=== PATIENT | female | born 1960 | race Caucasian/White ===

== ENCOUNTER → 2016-11-29 | Outpatient (CLI) | payer OTHER ==
[~2016-11-29] MED LIST: ACETAMINOPHEN PO; ADVIN25/60 INH; ALBUAER19 INH; ALPR-411 PO; ATV/1 PO; CALC500T83 PO; CHOL1TAB2 PO; CO Q PO; CYAN10005 PO; FSM70 PO; FURO-85 PO; OXGN; POTASSIUM OTC PO; PRAV20TA PO; SILDINJ PO; [UNRECOGNIZED DRUG - CODE] INH
== END | disposition home or self-care (01) ==
LOC: C.LAB 08:47
PROVIDERS: ATTEND Family Medicine
DX: Z11.59 Encounter for screening for other viral diseases (principal)

== ENCOUNTER → 2017-01-06 | Outpatient (CLI) | payer OTHER ==
[2017-01-06 10:26] LABS: PATIENT HEIGHT 162.6 cm
[2017-01-06 13:12] LABS: CREATININE 0.64 mg/dl (0.6-1.2)
== END | disposition home or self-care (01) ==
LOC: C.LAB 10:10
PROVIDERS: ATTEND Internal Medicine Pulmonary Disease
DX: Z01.818 Encounter for other preprocedural examination (principal); I27.0 Primary pulmonary hypertension

== ENCOUNTER → 2017-01-30 | Outpatient (CLI) | payer OTHER | END | disposition home or self-care (01) | LOC: C.MAMM 09:23 | PROVIDERS: ATTEND Family Medicine | DX: M85.89 Other specified disorders of bone density and structure, multiple sites (principal); M81.0 Age-related osteoporosis without current pathological fracture ==

== ENCOUNTER → 2017-03-20 | Outpatient (CLI) | payer OTHER | END | disposition home or self-care (01) | LOC: C.PATHSPEC 16:52 | PROVIDERS: ATTEND Dermatology | DX: L82.0 Inflamed seborrheic keratosis (principal) ==

== ENCOUNTER → 2017-03-21 | Outpatient (CLI) | payer OTHER ==
--- NOTE | 2017-03-21 15:20 | MAMMOGRAPHY REPORT ---
BILATERAL DIGITAL SCREENING MAMMOGRAM TOMOSYNTHESIS WITH CAD: 03/21/2017 CLINICAL HISTORY: Routine screening. Patient has no complaints. TECHNIQUE: Breast tomosynthesis in addition to standard 2D mammography was performed. Current study was also evaluated with a Computer Aided Detection (CAD) system. COMPARISON: Comparison is made to exams dated: 03/17/2016 mammogram, 03/13/2015 mammogram, 03/03/2014 mammogram, 03/01/2013 mammogram, 02/23/2012 mammogram, and 02/21/2011 mammogram - [facility]. BREAST COMPOSITION: There are scattered areas of fibroglandular density in both breasts. FINDINGS: The parenchymal pattern is similar to prior mammograms. There are scattered and grouped s table microcalcifications bilaterally. No developing mass, architectural distortion or cluster of sen spicious microcalcifications is seen in either breast. IMPRESSION: ACR BI-RADS CATEGORY 2: BENIGN There is no mammographic evidence of malignancy. A 1 year screening mammogram is recommended. The pa tient will receive written notification of the results. Approximately 10% of breast cancers are not detected with mammography. A negative mammographic report should not delay biopsy if a clinically suggestive mass is present. Valeria Hurt M.D. ay/:03/21/2017 14:39:44 Recruiting Coordinator: Denise Price, [facility] letter sent: Normal 1/2 BI-RADS Code: ACR BI-RADS Category 2: Benign
== END | disposition home or self-care (01) ==
LOC: C.MAMM 08:19
PROVIDERS: ATTEND Internal Medicine Pulmonary Disease
DX: Z12.31 Encounter for screening mammogram for malignant neoplasm of breast (principal)

== ENCOUNTER → 2017-04-10 | Outpatient (CLI) | payer OTHER | END | disposition home or self-care (01) | LOC: C.PAPS 09:50 | PROVIDERS: ATTEND Obstetrics & Gynecology | DX: Z12.4 Encounter for screening for malignant neoplasm of cervix (principal); R87.610 Atypical squamous cells of undetermined significance on cytologic smear of cervix (ASC-US) ==

== ENCOUNTER → 2017-04-17 | Outpatient (CLI) | payer OTHER | END | disposition home or self-care (01) | LOC: C.LAB1850 09:53 | PROVIDERS: ATTEND Obstetrics & Gynecology | DX: Z01.419 Encounter for gynecological examination (general) (routine) without abnormal findings (principal) ==

== ENCOUNTER 2020-01-24 09:33 | Observation (INO) ==
--- NOTE | 2020-01-24 10:05 | Emergency Department Note ---
Impression & Plan Hypoglycemia, Anemia ED Provider Note NAME: ANTWON TAI AGE: 59 SEX: F : 1960 ARRIVES VIA: Walk-In INFORMANT: Patient, ED PROVIDER(S): Jason Palumbo MD Chief Complaint: Low blood sugar HPI: Patient does present with concern for low blood sugar. 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 The patient was noted to be hypoglycemic last night with a BSG of 31. The patient did receive glucose tabs and this improved. The patient was seen by [facility] this morning with a BSG of 47. The patient was referred here for further evaluation and treatment. The patient does relate that she recently started a medication glimepiride 4 mg likely taken once daily. The patient has last taken this 2 days prior. Patient denies any other changes in her medications other than stopping the insulin use and after switching to the glimepiride. Patient denies fevers chills, chest pains. The patient does have some loose stools but the patient is on Reglan. ROS: See HPI for pertinent positives and negatives. A total of 10 systems were reviewed and otherwise negative. Past medical history: See below Surgical history: See below Social history: See below Physical Exam: GENERAL: NAD, non-toxic. Wearing glasses and a mask, nasal cannula in place. Hard of hearing. EYE EXAM: Right normal, left-sided subconjunctival hemorrhage noted. PERRL, no anisocoria and EOM's grossly intact w/o pain. NECK: Supple, no nuchal rigidity, no adenopathy, non-tender. No signs of meningismus. LUNGS: Clear to auscultation. Normal chest wall mechanics. HEART: NSR, no MRG. ABDOMEN: Abdomen soft, non-tender, normo-active bowel sounds, no masses, no rebound or guarding. BACK: No CVA TTP. SKIN: No rashes and no bruising. UPPER EXTREMITIES: Upper extremities are grossly normal. LOWER EXTREMITIES: Grossly normal, no edema. NEURO EXAM: A&O x3, cranial nerves II-XII grossly intact, normal speech, moves all 4 extremities on command w/o issue. Differential diagnoses: Infection, dehydration, metabolic abnormality, hypo/hyperglycemia, electrolyte disturbance, anemia, hypoxia, cardiac sources, intracerebral event, toxicologic, neurologic, as well as other pathologies. Course: Patient was seen and evaluated the bedside. Full history physical exam was performed. MDM: Patient was seen and evaluated the bedside. The patient was recently started on 4 mg of glimepiride likely daily although after discussion with the pharmacist the pharmacist stated that she was unable to view the actual instructions for the medications but typically this is able once daily medication. The patient has not taken this in approximate 48 hours. I did offer the patient a prescription of 1 mg glimepiride but the patient states that she was told to stop taking it at all times. The patient is well-appearing with a normal BSG. BSG was rechecked prior to discharge. This was in the 30s. The patient was given apple juice. Blood work was obtained and the patient was given IV dextrose and encouraged to drink more juice as well as eat crackers and peanut butter. Patient's repeat BSG was in the 80s. Given this rapid fluctuation even after eating for amounts of believe the patient would benefit from further inpatient monitoring treatment medication management given her persistent hypoglycemia. I did speak with the on-call hospitalist and the patient was admitted by Dr. Cormier with the [facility] service. Critical Care: I have personally spent 77 minutes of critical care time in direct management of this patient. This includes bedside care, interpretation of diagnostic studies, and testing, discussion with consultants, patient, and family members, and other require inpatient management activities. This 77 minutes is in excess of all separately billable procedures. Past Med/Surg History Medical History ASCUS of cervix with negative high risk HPV Cholesteatoma of both middle ears Chronic mastoiditis Chronic obstructive pulmonary disease Chronic respiratory failure with hypoxia and hypercapnia Chronic tympanomastoiditis Encounter for mastoidectomy cavity debridement History of actinic keratosis Hypercholesterolemia LGSIL on Pap smear of cervix Osteoporosis Postmenopausal Pulmonary emphysema Pulmonary hypertension Surgical History History of colposcopy History of ear surgery Hx of colonoscopy Hx of tonsillectomy S/P cardiac cath S/P dilation and curettage S/P wisdom tooth extraction Family History Mother Adenocarcinoma of lung Osteoporosis Rheumatoid arthritis Lung cancer Myocardial infarction Aunt Breast cancer maternal aunt Grandfather (Paternal) Colorectal cancer Father Lung cancer Denies family history of Ovarian cancer Social History Smoking Status: Former smoker Cigarettes Per Day: 1 ppd for 23 years; Hx Alcohol Use: No Hx Substance Use: No Feels Safe at Home: Yes Allergies Allergies Allergy/AdvReac Type Severity Reaction Status Date / Time Sulfa (Sulfonamide Allergy Mild Verified 05/27/19 12:23 Antibiotics) Home Meds Home Medications Medication Instructions Recorded Confirmed Oxygen Home #1 ea 02/05/19 04/30/19 atorvastatin 40 mg tablet 40 mg PO DAILY 04/24/19 01/24/20 zoledronic acid 5 mg/100 mL in 1 ea IV YEARLY 04/24/19 01/24/20 mannitol 5 %-water intravenous piggybck albuterol sulfate 2.5 mg INH MOWEFR PRN 01/24/20 01/24/20 amphotericin B liposome [AmBisome] 25 mg MOWEFR 01/24/20 01/24/20 aspirin [Aspir-81] 81 mg PO DAILY 01/24/20 01/24/20 azithromycin 250 mg PO MOWEFR 01/24/20 01/24/20 calcium carbonate-vitamin D3 2 tab PO DAILY 01/24/20 01/24/20 [Calcium + D] ferrous sulfate 325 mg PO BID 01/24/20 01/24/20 furosemide 40 mg PO DAILY 01/24/20 01/24/20 glimepiride 4 mg PO DAILY 01/24/20 01/24/20 magnesium oxide 250 mg PO DAILY 01/24/20 01/24/20 metoclopramide HCl 10 mg PO TID 01/24/20 01/24/20 metoprolol tartrate 50 mg PO BID 01/24/20 01/24/20 mycophenolate sodium [Myfortic] 900 mg PO BID 01/24/20 01/24/20 ondansetron 4 mg PO TID 01/24/20 01/24/20 pantoprazole 40 mg PO DAILY 01/24/20 01/24/20 potassium chloride 20 meq PO DAILY 01/24/20 01/24/20 prednisone 20 mg PO DAILY 01/24/20 01/24/20 sennosides-docusate sodium 2 tab-cap PO BID 01/24/20 01/24/20 [Senna-S] sulfamethoxazole-trimethoprim 1 tab PO MOWEFR 01/24/20 01/24/20 tacrolimus 0.5 mg PO BID 01/24/20 01/24/20 tacrolimus 1 mg PO Q12H 01/24/20 01/24/20 trazodone 50 mg PO DAILY 01/24/20 01/24/20 Previous Rx's Medication Instructions Recorded Flutter Valve #1 ea 05/14/19 CPAP Machine #1 ea 11/22/19 Results & Data (ED) Vital Signs Vital Signs - 24 hr 01/24/20 09:39 01/24/20 11:11 01/24/20 12:00 Temperature 37 C Temperature Source Oral Pulse Rate 88 102 H Pulse Rate from SpO2 Sensor 90 Pulse Rhythm Regular Pulse Strength Normal Respiratory Rate 18 22 Respiratory Effort / Characteristics Non-Labored Spontaneous Respiratory Depth Normal Respiratory Pattern Regular Blood Pressure 118/66 122/73 Blood Pressure Mean 83 97 Pulse Oximetry 98 100 99 Oxygen Delivery Method Room Air Room Air Nasal Cannula Oxygen Flow Rate 1 Sepsis Recent Fever Within 48 Hours No Sepsis New/Unexplained Change in Mental Status N/A Sepsis Action Taken by Nursing No Action Required Home Medications Current Medication List: was personally reviewed by me Laboratory Data Attestation: I reviewed the patient's lab results. Result diagrams: 01/24/20 10:58 01/24/20 10:58 Lab Results 01/24/20 01/24/20 01/24/20 Range/Units 09:38 10:33 10:58 WBC 6.56 (4.8-10.8) K/uL RBC 2.67 L (4.2-5.4) M/uL Hgb 8.1 L (12.0-16.0) g/dL Hct 25.6 L (37-47) % MCV 95.9 (80-100) fL MCH 30.3 (25-34) pg MCHC 31.6 L (32-36) g/dL RDW Std Deviation 65.6 H (36.4-46.3) fL RDW Coeff of Janina 18.7 H (11.5-14.5) % Plt Count 316 (130-400) K/uL MPV 8.6 (7.4-10.4) fL Immature Gran % (Auto) 4.9 % Neut % (Auto) 84.9 % Lymph % (Auto) 5.6 % [place] % (Auto) 4.6 % Eos % (Auto) 0.0 % Baso % (Auto) 0.0 % Neut # (Auto) 5.57 (1.4-6.5) K/uL Lymph # (Auto) 0.37 L (1.2-3.4) K/uL [place] # (Auto) 0.30 (0.11-0.59) K/uL Eos # (Auto) 0.00 (0-0.5) K/uL Baso # (Auto) 0.00 (0-0.2) K/uL Immature Gran # (Auto) 0.32 H (0.00-0.02) K/uL Sodium (136-145) mmol/L Potassium (3.5-5.1) mmol/L Chloride (98-107) mmol/L Carbon Dioxide (21-32) mmol/L Anion Gap (3-11) BUN (7-18) mg/dl Creatinine (0.6-1.2) mg/dl Est Cr Clr Drug Dosing ml/min Est GFR ( Amer) Est GFR (Non-Af Amer) BUN/Creatinine Ratio (10-20) Glucose (70-99) mg/dl POC Glucose 93 39 L* (70-99) mg/dl Calcium (8.5-10.1) mg/dl Phosphorus (2.5-4.9) mg/dl Magnesium (1.8-2.4) mg/dl Total Bilirubin (0.2-1) mg/dl AST (15-37) U/L ALT (12-78) U/L Alkaline Phosphatase (45-117) U/L Total Protein (6.4-8.2) gm/dl Albumin (3.4-5.0) gm/dl Globulin (2.5-4.0) gm/dl Albumin/Globulin Ratio (0.9-2) TSH (0.300-4.500) uIu/ml 01/24/20 01/24/20 01/24/20 Range/Units 10:58 11:28 12:16 WBC (4.8-10.8) K/uL RBC (4.2-5.4) M/uL Hgb (12.0-16.0) g/dL Hct (37-47) % MCV (80-100) fL MCH (25-34) pg MCHC (32-36) g/dL RDW Std Deviation (36.4-46.3) fL RDW Coeff of Janina (11.5-14.5) % Plt Count (130-400) K/uL MPV (7.4-10.4) fL Immature Gran % (Auto) % Neut % (Auto) % Lymph % (Auto) % [place] % (Auto) % Eos % (Auto) % Baso % (Auto) % Neut # (Auto) (1.4-6.5) K/uL Lymph # (Auto) (1.2-3.4) K/uL [place] # (Auto) (0.11-0.59) K/uL Eos # (Auto) (0-0.5) K/uL Baso # (Auto) (0-0.2) K/uL Immature Gran # (Auto) (0.00-0.02) K/uL Sodium 136 (136-145) mmol/L Potassium 3.5 (3.5-5.1) mmol/L Chloride 99 (98-107) mmol/L Carbon Dioxide 29 (21-32) mmol/L Anion Gap 8.0 (3-11) BUN 27 H (7-18) mg/dl Creatinine 1.30 H (0.6-1.2) mg/dl Est Cr Clr Drug Dosing 39.2 ml/min Est GFR ( Amer) 51.3 Est GFR (Non-Af Amer) 44.2 BUN/Creatinine Ratio 20.8 H (10-20) Glucose 26 L* (70-99) mg/dl POC Glucose 122 H 81 (70-99) mg/dl Calcium 8.6 (8.5-10.1) mg/dl Phosphorus 2.5 (2.5-4.9) mg/dl Magnesium 1.1 L (1.8-2.4) mg/dl Total Bilirubin 0.2 (0.2-1) mg/dl AST 16 (15-37) U/L ALT 17 (12-78) U/L Alkaline Phosphatase 61 (45-117) U/L Total Protein 5.7 L (6.4-8.2) gm/dl Albumin 2.4 L (3.4-5.0) gm/dl Globulin 3.3 (2.5-4.0) gm/dl Albumin/Globulin Ratio 0.7 L (0.9-2) TSH 1.620 (0.300-4.500) uIu/ml Administered Medications Discontinued Medications Dextrose (Dextrose 50% 50 Ml Syringe) 50 ml IV NOW ONE Stop: 01/24/20 10:44 Last Admin: 01/24/20 11:08 Dose: 50 ml Documented by: [id number] Sodium Chloride (Nss) 500 mls @ 999 mls/hr IV .Q31M FRANCIE Stop: 01/24/20 11:15 Last Infusion: 01/24/20 11:52 Dose: 0 mls/hr Documented by: [id number] Admin: 01/24/20 11:07 Dose: 999 mls/hr Documented by: [id number] Sodium Chloride (Nss 1000ml) 500 mls @ 999 mls/hr IV .Q31M ONE Stop: 01/24/20 11:41 Last Infusion: 01/24/20 11:52 Dose: 0 mls/hr Documented by: [id number] Admin: 01/24/20 11:17 Dose: 999 mls/hr Documented by: [id number] Discharge Plan Visit Data Chief Complaint: Hypoglycemia Stated Complaint: LOW BLOOD SUGAR ED Provider: Jason Palumbo Discharge Problem: Hypoglycemia, Anemia Forms Stand Alone Forms: [facility] Prescriptions Prescriptions: No Action (DME) CPAP Machine Misc See Rx Instructions .ROUTE .MEDSUPPLY Qty: 1 RF: 0 (DME) Oxygen Home Liters Per Minute See Dose Instructions .ROUTE .MEDSUPPLY Qty: 1 RF: 0 atorvastatin 40 mg tablet 40 mg PO DAILY RF: 0 zoledronic ocvp-rzghiopd-ndhii [Reclast] 5 mg/100 mL piggyback 1 ea IV YEARLY RF: 0 (DME) Flutter Valve Device See Rx Instructions .ROUTE .MEDSUPPLY Qty: 1 RF: 0 trazodone 50 mg tablet 50 mg PO DAILY RF: 0 potassium chloride 20 mEq tablet,ER particles/crystals 20 meq PO DAILY RF: 0 metoclopramide HCl 5 mg tablet 10 mg PO TID RF: 0 pantoprazole 40 mg tablet,delayed release (DR/EC) 40 mg PO DAILY RF: 0 metoprolol tartrate 50 mg tablet 50 mg PO BID RF: 0 furosemide 40 mg tablet 40 mg PO DAILY RF: 0 prednisone 10 mg tablet 20 mg PO DAILY RF: 0 azithromycin 250 mg tablet 250 mg PO MOWEFR RF: 0 sennosides-docusate sodium [Senna-S] 8.6-50 mg Tablet 2 tab-cap PO BID RF: 0 calcium carbonate-vitamin D3 [Calcium + D] 600 mg(1,500mg) -200 unit Tablet 2 tab PO DAILY RF: 0 sulfamethoxazole-trimethoprim 800-160 mg tablet 1 tab PO MOWEFR RF: 0 aspirin [Aspir-81] 81 mg Tablet,Delayed Release (Dr/Ec) 81 mg PO DAILY RF: 0 ferrous sulfate 325 mg (65 mg iron) Tablet 325 mg PO BID RF: 0 glimepiride 4 mg tablet 4 mg PO DAILY RF: 0 AmBisome 50 mg suspension for reconstitution 25 mg MOWEFR RF: 0 ondansetron 4 mg tablet,disintegrating 4 mg PO TID RF: 0 tacrolimus 1 mg Capsule 1 mg PO Q12H RF: 0 tacrolimus 0.5 mg Capsule 0.5 mg PO BID RF: 0 magnesium oxide 250 mg magnesium Tablet 250 mg PO DAILY RF: 0 mycophenolate sodium [Myfortic] 180 mg Tablet,Delayed Release (Dr/Ec) 900 mg PO BID RF: 0 albuterol sulfate 2.5 mg /3 mL (0.083 %) solution for nebulization 2.5 mg INH MOWEFR PRN (Reason: shortness of breath or wheezing) RF: 0 tobramycin sulfate 40 mg/mL solution 120 mg inhalation BID RF: 0 Discharge Problem: Anemia Qualifiers: Anemia type: unspecified type Qualified Code(s): D64.9 - Anemia, unspecified
[2020-01-24] MEDS ORDERED: DEXTROSE 50% 50 ML SYRINGE IV ONE (10:43)
[2020-01-24] MEDS ORDERED: SODIUM CHLORIDE 0.9% 500 ML IV SCH (10:45)
[2020-01-24 11:06] LABS: Hematocrit (blood only) 25.6 % (37-47); Hemoglobin 8.1 g/dL (12.0-16.0); Immature Granulocytes # (auto) 0.32 K/uL (0.00-0.02); Immature Granulocytes % (auto) 4.9 %; Lymphocytes # (auto) 0.37 K/uL (1.2-3.4); Lymphocytes % (auto) 5.6 %; Mean Corpuscular Hemoglobin 30.3 pg (25-34); Mean Corpuscular Hgb Conc 31.6 g/dL (32-36); Mean Corpuscular Volume 95.9 fL (80-100); Mean Platelet Volume 8.6 fL (7.4-10.4); Monocytes % (auto) 4.6 %; Neutrophils # (auto) 5.57 K/uL (1.4-6.5); Neutrophils % (auto) 84.9 %; Platelet Count 316 K/uL (130-400); RDW Coefficient of Variation 18.7 % (11.5-14.5); RDW Standard Deviation 65.6 fL (36.4-46.3); Red Blood Count 2.67 M/uL (4.2-5.4); White Blood Count 6.56 K/uL (4.8-10.8)
[2020-01-24] MEDS ORDERED: SODIUM CHLORIDE 0.9% 1000ML 500 ML IV ONE (11:11)
[2020-01-24 11:37] LABS: Albumin Globulin Ratio 0.7 (0.9-2); Albumin Level 2.4 gm/dl (3.4-5.0); BUN Creatinine Ratio 20.8 (10-20); Bilirubin,Total 0.2 mg/dl (0.2-1); Calcium 8.6 mg/dl (8.5-10.1); Creatinine Clr Calc Pharmacy 39.2 ml/min; Est GFR (African American) 51.3; Est GFR (Non-African American) 44.2; Globulin 3.3 gm/dl (2.5-4.0); Magnesium 1.1 mg/dl (1.8-2.4); Phosphorus 2.5 mg/dl (2.5-4.9); Potassium 3.5 mmol/L (3.5-5.1); Thyroid Stimulating Hormone 1.62 uIu/ml (0.300-4.500); Total Protein 5.7 gm/dl (6.4-8.2)
[2020-01-24] MEDS ORDERED: MAGNESIUM SULFATE / D5W 1 GM/100 ML BAG IV STA (13:18)
--- NOTE | 2020-01-24 13:57 | History & Physical Report ---
Date of Service January 24, 2020 Assessment & Plan (1) Hypoglycemia: -Admit to [facility] with telemetry -Patient presenting from home with reports of hypoglycemia in the 30s to 40s. Was discharged from rehab on 01/12 with Humulin and and NovoLog. On 01/21, patient was instructed to stop Humulin and start glimepiride 4 mg daily and utilize NovoLog as needed 3 times a day per sliding scale. -In the ED, glucose as low as 26. This improved after IV D50 and meal tray. -Suspect hypoglycemia is multifactorial secondary to patient's poor p.o. intake and mild renal dysfunction with the use of glimepiride. -Continue to hold all hypoglycemic agents and insulin -Monitor glucose hourly (2) Hypomagnesemia: -MG +1.1 -Likely due to diarrhea and poor p.o. intake -Replace, follow magnesium levels (3) Diarrhea: -Patient reports worsening diarrhea since starting Reglan -Hold Reglan -Check stool culture and C. difficile (4) Lung transplant status, bilateral: -Continue routine transplant medications including: Nebulized amphotericin, tacrolimus, azithromycin, Myfortic, Bactrim, valganciclovir, nebulized tobramycin, prednisone -Tacrolimus level on 01/19 28.5 -Discussed with [facility] home school coordinator, Danelle. They are aware of most recent tacrolimus level and renal functions and patient was instructed to reduce dose to 6 mg twice daily. -Patient will need repeat tacrolimus and BMP level on 01/26 (5) Abnormal renal function: -Recent creatinine 1.16 -> 1.48 -> 1.3 today -severity of illness coordinator aware -Continue to monitor renal functions (6) Paroxysmal A-fib: -Developed postoperative atrial fibrillation -Was anticoagulated for a brief period of time -Rate controlled on metoprolol, will continue (7) Anemia: -Hgb 8.1 -Likely anemia of chronic disease -No signs of bleeding -Monitor CBC (8) DVT prophylaxis: -SCDs due to anemia History of Present Illness Chief Complaint: Hypoglycemia Primary Care Provider: Jeferson Vinson MD 59-year-old female with PMH double lung transplant ([facility] 11/11/2019), HLD, paroxysmal atrial fibrillation, and other problems listed below who presents the ED for evaluation of hypoglycemia. Patient was discharged from rehab on 01/13/2020 after hospitalization for double lung transplant. Patient reports she was placed on Humulin and and NovoLog insulin while at rehab due to steroid-induced hyperglycemia. Patient reports that on 01/22/2020, she was instructed to stop Humulin insulin and start glimepiride 4 mg daily. She was instructed to use NovoLog per sliding scale as needed. Patient reports she took her first dose of glimepiride on 01/22/2020, and that evening she developed severe hypoglycemia with blood sugars in the 30s to 40s. She has had several episodes of hypoglycemia over the past few days. reports that patient becomes very lethargic and diaphoretic during episodes of hypoglycemia. She has been drinking apple juice and eating candy to help improve blood sugar. This morning, home health nursing came to evaluate the patient and she was again hypoglycemic. She was sent to the ED for further evaluation. Patient reports that since her surgery, she has had a very poor appetite. She was also struggling with nausea and was placed on Reglan. Patient reports that since starting Reglan, she has had diarrhea. She denies bright red bleeding per rectum or dark tarry stools. No abdominal pain. She has had some intermittent episodes of vomiting. No hematemesis or coffee-ground emesis. She denies fevers and chills. No chest pain, shortness of breath, palpitations. She is currently on 1 L of oxygen at all times. She denies lightheadedness, dizziness, syncopal events. No urinary symptoms. In the ED, blood sugar was 93 however dropped to 26. She was given D50. Most recent blood sugar 73. Allergies Allergy/AdvReac Type Severity Reaction Status Date / Time No Known Allergies Allergy Verified 01/24/20 16:23 Home Medications Home Medications Medication Instructions Recorded Confirmed Type Oxygen Home #1 ea 02/05/19 04/30/19 History atorvastatin 40 mg tablet 40 mg PO DAILY 04/24/19 01/24/20 History Flutter Valve #1 ea 05/14/19 05/14/19 Rx CPAP Machine #1 ea 11/22/19 Rx albuterol sulfate 2.5 mg INH MOWEFR 01/24/20 01/24/20 History amphotericin B 25 mg INHALATION MOWEFR 01/24/20 01/24/20 History azithromycin 250 mg PO MOWEFR 01/24/20 01/24/20 History ferrous sulfate 325 mg PO BID 01/24/20 01/24/20 History furosemide 40 mg PO DAILY 01/24/20 01/24/20 History glimepiride 4 mg PO DAILY 01/24/20 01/24/20 History magnesium oxide 250 mg PO DAILY 01/24/20 01/24/20 History metoclopramide HCl 10 mg PO TID 01/24/20 01/24/20 History metoprolol tartrate 50 mg PO BID 01/24/20 01/24/20 History mycophenolate sodium [Myfortic] 900 mg PO BID 01/24/20 01/24/20 History ondansetron 4 mg PO TID 01/24/20 01/24/20 History pantoprazole 40 mg PO DAILY 01/24/20 01/24/20 History potassium chloride 20 meq PO DAILY 01/24/20 01/24/20 History prednisone 20 mg PO DAILY 01/24/20 01/24/20 History sulfamethoxazole-trimethoprim 1 tab PO MOWEFR 01/24/20 01/24/20 History tacrolimus 1 mg PO Q12H 01/24/20 01/24/20 History tacrolimus 5 mg PO Q12H 01/24/20 01/24/20 History tobramycin sulfate 120 mg INHALATION BID 01/24/20 01/24/20 History trazodone 50 mg PO DAILY 01/24/20 01/24/20 History valganciclovir 1,800 mg PO DAILY 01/24/20 01/24/20 History Past Med/Surg History Medical History ASCUS of cervix with negative high risk HPV Cholesteatoma of both middle ears Chronic mastoiditis Chronic obstructive pulmonary disease Chronic respiratory failure with hypoxia and hypercapnia Chronic tympanomastoiditis Encounter for mastoidectomy cavity debridement History of actinic keratosis Hypercholesterolemia LGSIL on Pap smear of cervix Osteoporosis Paroxysmal A-fib Postmenopausal Pulmonary emphysema Pulmonary hypertension Surgical History History of colposcopy History of ear surgery Hx of colonoscopy Hx of tonsillectomy Lung transplant status, bilateral 11/11/2019 [facility] S/P cardiac cath S/P dilation and curettage S/P wisdom tooth extraction Family History Mother Adenocarcinoma of lung Osteoporosis Rheumatoid arthritis Lung cancer Myocardial infarction Aunt Breast cancer maternal aunt Grandfather (Paternal) Colorectal cancer Father Lung cancer Denies family history of Ovarian cancer Social History Smoking Status: Never smoker Cigarettes Per Day: 1 ppd for 23 years; Hx Alcohol Use: No Hx Substance Use: No Preferred Language: Burmese Communication Ability: Effective Fur Mixer Required: No Beliefs That Will Affect Care: None Current Living Situation: Spouse Other Information That Helps Us Care for You: No Feels Safe at Home: Yes Safety Concerns: Feels Safe At This Time Review of Systems Review of Systems: ROS per HPI, all other systems reviewed and negative Physical Exam Constitutional: WD/WN, vitals as above Eyes: + anicteric sclerae and PERRL subconjunctival hemorrhage noted in left eye ENMT: external ear and nose normal, oropharynx normal Respiratory: normal respiratory effort; no respiratory distress Scattered coarse breath sounds noted bilaterally Cardiovascular: Rate/Rhythm: regular rate and regular rhythm Vessels: normal peripheral pulses Extremities: + edema (+2 pitting ankle edema BLE) Gastrointestinal (Abdomen): normal bowel sounds, soft, nontender, no hepatosplenomegaly Musculoskeletal: no cyanosis or clubbing, extremities motor strength 5/5 Skin: no rashes, warm and dry Neurologic: PERRL, EOMI, accommodation nl, no face palsy, no dysarthria Psychiatric: A+Ox3, euthymic affect Results & Data Results & Data ([facility]) Vital Signs (Past 12 Hours) Vital Signs Temp Pulse Resp BP Pulse Ox 01/24/20 13:00 96 H 26 H 113/61 100 01/24/20 12:30 104 H 23 111/68 100 01/24/20 12:00 102 H 22 122/73 99 01/24/20 11:11 100 01/24/20 09:39 37 C 88 18 118/66 98 Laboratory Results Short CBC 01/24/20 01/24/20 01/24/20 Range/Units 09:38 10:33 10:58 WBC 6.56 (4.8-10.8) K/uL Hgb 8.1 L (12.0-16.0) g/dL Hct 25.6 L (37-47) % Plt Count 316 (130-400) K/uL POC Glucose 93 39 L* (70-99) mg/dl 01/24/20 01/24/20 01/24/20 Range/Units 11:28 12:16 13:20 WBC (4.8-10.8) K/uL Hgb (12.0-16.0) g/dL Hct (37-47) % Plt Count (130-400) K/uL POC Glucose 122 H 81 61 L* (70-99) mg/dl 01/24/20 Range/Units 13:21 WBC (4.8-10.8) K/uL Hgb (12.0-16.0) g/dL Hct (37-47) % Plt Count (130-400) K/uL POC Glucose 73 (70-99) mg/dl BMP 01/24/20 10:58 Sodium 136 Potassium 3.5 Chloride 99 Carbon Dioxide 29 BUN 27 H Creatinine 1.30 H Glucose 26 L* Calcium 8.6 Liver Function 01/24/20 Range/Units 10:58 Total Bilirubin 0.2 (0.2-1) mg/dl AST 16 (15-37) U/L ALT 17 (12-78) U/L Alkaline Phosphatase 61 (45-117) U/L Albumin 2.4 L (3.4-5.0) gm/dl Code Status & VTE Plan VTE Prophylaxis Plan VTE Prophylaxis will be ordered: Yes Supervising Physician Co-Signing Physician Notes Patient seen and examined by me, care coordinated with RICHARD Davis, please refer to her note above for further detail. Pt is a 59 y/o female with hx of double lung transplant ([facility] 11/11/2019), HLD, paroxysmal atrial fibrillation, who presents in the ED for evaluation of hypoglycemia. Patient was discharged from rehab on 01/13/2020 after hospitalization for double lung transplant. Patient reports she was placed on Humulin and and NovoLog insulin while at rehab due to steroid-induced hyperglycemia. Patient reports that on 01/22/2020, she was instructed to stop Humulin insulin and start glimepiride 4 mg daily. She was instructed to use NovoLog per sliding scale as needed. Last night she was found to be hypoglycemic with blood sugar level of 31, home health check this morning, blood sugar level of 47. In ED she received dextrose and normal saline. Patient states the glyburide was prescribed by her retail store clerk in [place]. She reports having diarrhea since her lung transplant. Possibly secondary to Reglan use. Currently patient is sitting up in bed, in no acute distress. Patient's at the bedside. Patient is alert and oriented and answering questions appropriately. Subconjunctival hemorrhage noted in the left eye. Otherwise normocephalic. Lung sounds are mildly coarse, no wheezing noted. She also has some ankle edema. Per patient and , her lower extremity edema is significantly improved, patient was reportedly quite edematous after her surgery and this has been progressively resolving. She is able to move all 4 extremities spontaneously. Abdomen is soft, nontender, nondistended, positive bowel sounds. Skin is warm, dry, no rashes or lesions noted. We will hold glimepiride, and will closely monitor her glucose levels. Will hold Reglan, and will obtain stool culture, C. difficile. Magnesium significantly low, will replete and monitor. A. fib, rate controlled. [facility] lung home school coordinator notified about the patient's admission also current medication list requested. Siomara Cormier MD (1) Anemia Anemia type: unspecified type Qualified Code(s): D64.9 - Anemia, unspecified
[2020-01-24] MEDS ORDERED: [UNRECOGNIZED DRUG - OTHER] IR SCH (14:50)
[2020-01-24] MEDS ORDERED: ACETAMINOPHEN 325 MG TAB PO PRN (14:50)
[2020-01-24] MEDS ORDERED: CONSULT PHARMACY PRN (14:50)
[2020-01-24] MEDS ORDERED: PATIENT'S ALLERGY INFO NEEDS ENTERED SCH (15:00)
--- NOTE | 2020-01-24 15:06 | Electrocardiogram Report ---
Test Reason : Blood Pressure : / mmHG Vent. Rate : 129 BPM Atrial Rate : 129 BPM P-R Int : 132 ms QRS Dur : 076 ms QT Int : 312 ms P-R-T Axes : 038 060 048 degrees QTc Int : 457 ms Poor data quality, interpretation may be adversely affected Sinus tachycardia with Premature atrial complexes Possible Left atrial enlargement Borderline ECG When compared with ECG of 08-JAN-2013 16:48, Premature atrial complexes are now Present Vent. rate has increased BY 53 BPM T wave amplitude has decreased in Anterior leads Confirmed by Hosea John ([id number]) on 01/24/2020 3:06:32 PM Referred By: REFERRED SELF Confirmed By:Hosea John
[2020-01-24] MEDS ORDERED: ALBUTEROL 0.083% NEBU SOLN 3 ML VIAL INH SCH (17:59)
[2020-01-24] MEDS ORDERED: AMBISOME INH SCH (18:00)
[2020-01-24] MEDS ORDERED: TOBRAMYCIN SULFATE INH SCH (21:00)
[2020-01-24] MEDS ORDERED: TOBRAMYCIN SULF 40 MG/ML 2 ML VIAL INH SCH (21:00)
[2020-01-24] MEDS: MYCOPHENOLATE SODIUM 180 MG TAB PO SCH (21:10)
[2020-01-24] MEDS: FERROUS SULFATE 325 MG TAB PO SCH (21:10)
[2020-01-24] MEDS: METOPROLOL TARTRATE 50 MG TAB PO SCH (21:11)
[2020-01-24] MEDS: TACROLIMUS 1 MG CAP PO SCH ×2 (21:11)
[2020-01-25] MEDS ORDERED: ONDANSETRON INJ 2 MG/ML 2 ML VIAL IV PRN (02:39)
[2020-01-25] MEDS ORDERED: ONDANSETRON INJ 2 MG/ML 2 ML VIAL ONE (02:46)
[2020-01-25] MEDS ORDERED: TOBRAMYCIN SULFATE INH SCH (07:00)
[2020-01-25 08:07] LABS: Hematocrit (blood only) 24.1 % (37-47); Hemoglobin 7.7 g/dL (12.0-16.0); Mean Corpuscular Hemoglobin 30.8 pg (25-34); Mean Corpuscular Volume 96.4 fL (80-100); Mean Platelet Volume 8.9 fL (7.4-10.4); Platelet Count 302 K/uL (130-400); RDW Coefficient of Variation 18.6 % (11.5-14.5); RDW Standard Deviation 65.5 fL (36.4-46.3); White Blood Count 5.61 K/uL (4.8-10.8)
[2020-01-25] MEDS: MYCOPHENOLATE SODIUM 180 MG TAB PO SCH (08:09)
[2020-01-25] MEDS: METOPROLOL TARTRATE 50 MG TAB PO SCH (08:12)
[2020-01-25] MEDS: TACROLIMUS 1 MG CAP PO SCH ×2 (08:14)
[2020-01-25] MEDS: FERROUS SULFATE 325 MG TAB PO SCH (08:16)
[2020-01-25 08:25] LABS: Calcium 8.6 mg/dl (8.5-10.1); Creatinine Clr Calc Pharmacy 42.2 ml/min; Est GFR (African American) 55.9; Est GFR (Non-African American) 48.3; Magnesium 1.4 mg/dl (1.8-2.4); Potassium 3.9 mmol/L (3.5-5.1)
[2020-01-25] MEDS ORDERED: FUROSEMIDE 40 MG TAB PO SCH (09:00)
[2020-01-25] MEDS ORDERED: MAGNESIUM OXIDE 400 MG TAB PO SCH (09:00)
[2020-01-25] MEDS ORDERED: ATORVASTATIN 40 MG TAB PO SCH (09:00)
[2020-01-25] MEDS ORDERED: PANTOprazole 40 MG TAB PO SCH (09:00)
[2020-01-25] MEDS ORDERED: predniSONE 20 MG TAB PO SCH (09:00)
[2020-01-25] MEDS ORDERED: POTASSIUM CHLORIDE 20 MEQ TABCR PO SCH (09:00)
[2020-01-25] MEDS ORDERED: TRAZODONE HCL 50 MG TAB PO SCH (09:00)
[2020-01-25] MEDS ORDERED: MAGNESIUM SULFATE / D5W 1 GM/100 ML BAG IV ONE (12:30)
--- NOTE | 2020-01-25 16:25 | Hospitalist Progress Note ---
Date of Service January 25, 2020 Assessment & Plan (1) Hypoglycemia: -Type 2 diabetes, presented with hyperglycemia -Patient presenting from home with reports of hypoglycemia in the 30s to 40s. Was discharged from rehab on 01/12 with Humulin and and NovoLog. On 01/21, patient was instructed to stop Humulin and start glimepiride 4 mg daily and utilize NovoLog as needed 3 times a day per sliding scale. -In the ED, glucose as low as 26. This improved after IV D50 and meal tray. -Suspect hypoglycemia secondary to patient's poor p.o. intake/ acute renal failure-while taking glimepiride Glimepiride discontinued Patient will be discharged on p.o. metformin XR 500 mg daily Follow-up with family physician for further adjustment of diabetic meds (2) Acute renal failure superimposed on stage 3 chronic kidney disease: Baseline creatinine 0.8- 1 as per previous labs Presents acute renal failure with creatinine 1.3 Possible secondary to poor p.o. intake, ongoing GI loss with diarrhea Patient is asked not to take Lasix But lab work on Monday, Lasix can be resumed if renal function back to baseline Avoid NSAIDs (3) Hypomagnesemia: -Ordered for IV magnesium replacement Patient has ongoing diarrhea, chronic low mag takes magnesium supplement as well No loose stool or bowel movement this morning Change patient's short acting medication oxide 200 mg daily supplement to Slow- Mag which has less GI symptoms Repeat labs on Monday, patient gets home health visiting nurse to draw labs every week (4) Diarrhea: Stool or bowel movement since this morning Mag supplement changed as above (5) Lung transplant status, bilateral: -Continue routine transplant medications including: Nebulized amphotericin, tacrolimus, azithromycin, Myfortic, Bactrim, valganciclovir, nebulized tobramycin, prednisone -Tacrolimus level on 01/19 28.5 -Care discussed with [facility] guest services coordinatorDanelle on admission they are aware of most recent tacrolimus level and renal functions and patient was instructed to reduce dose to 6 mg twice daily. -Patient will need repeat tacrolimus and BMP level on 01/26 (6) Paroxysmal A-fib: -Developed postoperative atrial fibrillation -Was anticoagulated for a brief period of time -Rate controlled on metoprolol, (7) Anemia: - -Likely anemia of chronic disease -No signs of bleeding (8) DVT prophylaxis: -SCDs due to anemia Status: Full code Patient is discharged home today Admission and Anticipated Discharge Date Admission Date: January 24, 2020 Anticipated date of discharge: 01/25/20 Subjective Patient denies of any symptoms, Feels fine, no dizzy spell or lightheadedness Tolerating diet, blood sugar has been stable Fever chills, no cough Eager to be discharged home today Review of Systems Review of Systems: All systems reviewed & are unremarkable except as noted in HPI & below Physical Exam Constitutional: WD/WN, vitals as above no acute distress Eyes: PERRL, conjunctivae normal, anicteric sclerae ENMT: external ear and nose normal, oropharynx normal Neck: trachea midline, no thyromegaly Respiratory: Auscultation: + rales and + wheezes (Scattered wheeze) Gastrointestinal (Abdomen): normal bowel sounds, soft, nontender, no hepatosplenomegaly Musculoskeletal: no cyanosis or clubbing, extremities motor strength 5/5 Skin: no rashes, warm and dry Neurologic: PERRL, EOMI, accommodation nl, no face palsy, no dysarthria Psychiatric: A+Ox3, euthymic affect Results & Data Results & Data ([facility]) Vital Signs (Past 12 Hours) Vital Signs Temp Pulse Pulse Pulse Resp BP Pulse Ox 01/25/20 15:31 36.9 C 81 17 120/70 99 01/25/20 15:17 36.9 C 75 94 H 17 129/75 96 01/25/20 12:32 36.9 C 75 17 129/75 96 01/25/20 08:20 113 H 01/25/20 07:30 36.9 C 104 H 17 105/61 93 01/25/20 07:21 84 18 94 01/25/20 04:18 36.9 C 88 18 112/70 98 (1) Anemia Anemia type: unspecified type Qualified Code(s): D64.9 - Anemia, unspecified
--- NOTE | 2020-01-25 16:26 | Discharge Summary ---
Date of Service January 25, 2020 Admission HPI Per Admitting Provider 59-year-old female with PMH double lung transplant ([facility] 11/11/2019), HLD, paroxysmal atrial fibrillation, and other problems listed below who presents the ED for evaluation of hypoglycemia. Patient was discharged from rehab on 01/13/2020 after hospitalization for double lung transplant. Patient reports she was placed on Humulin and and NovoLog insulin while at rehab due to steroid-induced hyperglycemia. Patient reports that on 01/22/2020, she was instructed to stop Humulin insulin and start glimepiride 4 mg daily. She was instructed to use NovoLog per sliding scale as needed. Patient reports she took her first dose of glimepiride on 01/22/2020, and that evening she developed severe hypoglycemia with blood sugars in the 30s to 40s. She has had several episodes of hypoglycemia over the past few days. reports that patient becomes very lethargic and diaphoretic during episodes of hypoglycemia. She has been drinking apple juice and eating candy to help improve blood sugar. This morning, home health nursing came to evaluate the patient and she was again hypoglycemic. She was sent to the ED for further evaluation. Patient reports that since her surgery, she has had a very poor appetite. She was also struggling with nausea and was placed on Reglan. Patient reports that since starting Reglan, she has had diarrhea. She denies bright red bleeding per rectum or dark tarry stools. No abdominal pain. She has had some intermittent episodes of vomiting. No hematemesis or coffee-ground emesis. She denies fevers and chills. No chest pain, shortness of breath, palpitations. She is currently on 1 L of oxygen at all times. She denies lightheadedness, dizziness, syncopal events. No urinary symptoms. In the ED, blood sugar was 93 however dropped to 26. She was given D50. Most recent blood sugar 73. Principal Diagnosis LOW BLOOD SUGAR double lung transplant Discharge Exam Constitutional WD/WN, vitals as above no acute distress Eyes PERRL, conjunctivae normal, anicteric sclerae ENMT external ear and nose normal, oropharynx normal Neck trachea midline, no thyromegaly Respiratory Auscultation: + rales and + wheezes (Scattered wheeze) Gastrointestinal (Abdomen) normal bowel sounds, soft, nontender, no hepatosplenomegaly Musculoskeletal no cyanosis or clubbing, extremities motor strength 5/5 Skin no rashes, warm and dry Neurologic PERRL, EOMI, accommodation nl, no face palsy, no dysarthria Psychiatric A+Ox3, euthymic affect Discharge Data Allergies Allergy/AdvReac Type Severity Reaction Status Date / Time glimepiride AdvReac Severe Fainting Verified 01/25/20 14:42 Consultations 01/24/20 12:29 ED Decision to Admit Stat 01/24/20 14:50 Consult Case Management - Discharge Planning Routine Hospital Course (1) Hypoglycemia: -Type 2 diabetes, presented with hyperglycemia -Patient presenting from home with reports of hypoglycemia in the 30s to 40s. Was discharged from rehab on 01/12 with Humulin and and NovoLog. On 01/21, patient was instructed to stop Humulin and start glimepiride 4 mg daily and utilize NovoLog as needed 3 times a day per sliding scale. -In the ED, glucose as low as 26. This improved after IV D50 and meal tray. -Suspect hypoglycemia secondary to patient's poor p.o. intake/ acute renal failure-while taking glimepiride Glimepiride discontinued Patient will be discharged on p.o. metformin XR 500 mg daily Follow-up with family physician for further adjustment of diabetic meds (2) Acute renal failure superimposed on stage 3 chronic kidney disease: Baseline creatinine 0.8- 1 as per previous labs Presents acute renal failure with creatinine 1.3 Possible secondary to poor p.o. intake, ongoing GI loss with diarrhea Patient is asked not to take Lasix But lab work on Monday, Lasix can be resumed if renal function back to baseline Avoid NSAIDs (3) Hypomagnesemia: -Ordered for IV magnesium replacement Patient has ongoing diarrhea, chronic low mag takes magnesium supplement as well No loose stool or bowel movement this morning Change patient's short acting medication oxide 200 mg daily supplement to Slow- Mag which has less GI symptoms Repeat labs on Monday, patient gets home health visiting nurse to draw labs every week (4) Diarrhea: Stool or bowel movement since this morning Mag supplement changed as above (5) Lung transplant status, bilateral: -Continue routine transplant medications including: Nebulized amphotericin, tacrolimus, azithromycin, Myfortic, Bactrim, valganciclovir, nebulized tobramycin, prednisone -Tacrolimus level on 01/19 28.5 -Care discussed with [facility] sales program coordinatorDanelle on admission they are aware of most recent tacrolimus level and renal functions and patient was instructed to reduce dose to 6 mg twice daily. -Patient will need repeat tacrolimus and BMP level on 01/26 (6) Paroxysmal A-fib: -Developed postoperative atrial fibrillation -Was anticoagulated for a brief period of time -Rate controlled on metoprolol, (7) Anemia: - -Likely anemia of chronic disease -No signs of bleeding (8) DVT prophylaxis: -SCDs due to anemia Status: Full code Patient is discharged home today Total Time Total Time Spent Total Time Spent (In Minutes): 35 mins Total Time Includes: Examination of the Patient, Discharge Planning and Medication Reconciliation Discharge Plan Discharge Items Patient Disposition: Home - Self-Care Reason For Visit: HYPOGLYCEMIA Discharge Diagnosis: LOW BLOOD SUGAR double lung transplant Activity: Resume your previous activity Non-emergency contact: Primary Care Provider Call non-emergency contact if: you have any medication questions Follow-up/Referrals: Jeferson Vinson MD [Primary Care Provider] - (hospital follow up in a week office will call with appointment ) Diet: Regular Addtl Attending Provider Instructions: Do not take glimepiride You are Started on Metformin 500 XR 1 tablet daily please follow up with you family physician for further adjustment of dose if needed Oral magnesium tablets does have the side effect of causing loose stool/diarrhea you Mg supplement changed to Slow Mg tablet which has less side effect Please have lab work done on Monday as per scheduled to check your magnesium level You can take [id number] Imodium as needed for loose stool/diarrhea Do not take Lasix till Monday You kidney numbers been elevated -follow up lab for kidney function on Monday you family physician /Transplant Team can resume Lasix if kidney function back to normal do not take Aleve , Advil , Motrin , Ibuprophen . Naproxen -avoid pain medications that contains NSAID's to prevent worsening of renal function please return to ER or notify your family physician with any recurrence of symptoms Pending Studies at Discharge: No Stand-Alone Forms: My Blue Box, Smoking Cessation Medications and DC Order Prescriptions: New Slow-Mag 71.5 mg tablet,delayed release (DR/EC) 71.5 mg PO DAILY Qty: 30 RF: 0 metformin 500 mg tablet extended release 24 hr 500 mg PO DAILY Qty: 30 RF: 3 Continued (DME) CPAP Machine Misc See Rx Instructions .ROUTE .MEDSUPPLY Qty: 1 RF: 0 (DME) Oxygen Home Liters Per Minute See Dose Instructions .ROUTE .MEDSUPPLY Qty: 1 RF: 0 atorvastatin 40 mg tablet 40 mg PO DAILY RF: 0 (DME) Flutter Valve Device See Rx Instructions .ROUTE .MEDSUPPLY Qty: 1 RF: 0 trazodone 50 mg tablet 50 mg PO DAILY RF: 0 potassium chloride 20 mEq tablet,ER particles/crystals 20 meq PO DAILY RF: 0 metoclopramide HCl 5 mg tablet 10 mg PO TID RF: 0 pantoprazole 40 mg tablet,delayed release (DR/EC) 40 mg PO DAILY RF: 0 metoprolol tartrate 50 mg tablet 50 mg PO BID RF: 0 prednisone 10 mg tablet 20 mg PO DAILY RF: 0 azithromycin 250 mg tablet 250 mg PO MOWEFR RF: 0 sulfamethoxazole-trimethoprim 800-160 mg tablet 1 tab PO MOWEFR RF: 0 ferrous sulfate 325 mg (65 mg iron) Tablet 325 mg PO BID RF: 0 ondansetron 4 mg tablet,disintegrating 4 mg PO TID RF: 0 mycophenolate sodium [Myfortic] 180 mg Tablet,Delayed Release (Dr/Ec) 900 mg PO BID RF: 0 albuterol sulfate 2.5 mg /3 mL (0.083 %) solution for nebulization 2.5 mg INH MOWEFR RF: 0 tobramycin sulfate 40 mg/mL solution 120 mg inhalation BID RF: 0 valganciclovir 450 mg Tablet 1,800 mg PO DAILY RF: 0 tacrolimus 5 mg Capsule 5 mg PO Q12H RF: 0 amphotericin B 50 mg Recon Soln 25 mg inhalation MOWEFR RF: 0 tacrolimus 1 mg Capsule 1 mg PO Q12H RF: 0 Discontinued furosemide 40 mg tablet 40 mg PO DAILY RF: 0 glimepiride 4 mg tablet 4 mg PO DAILY RF: 0 magnesium oxide 250 mg magnesium Tablet 250 mg PO DAILY RF: 0 Discharge Orders: Discharge Order (Routine); Ordered 01/25/20 Ordered By: Yue Arteaga Admission Data Admit Date/Time: 01/24/20 13:17 Attending Provider: Yue Arteaga Admit Provider: Mickey Cormier Primary Care Provider: Jeferson Vinson Other Providers: Mickey Cormier ; [facility],Home Healthcare Other Interventions: Discharge Summary Assessment (RN) Last Done: 01/25/20 15:17
[2020-01-27] MEDS ORDERED: ALBUTEROL 0.083% NEBU SOLN 3 ML VIAL INH SCH (06:59)
[2020-01-27] MEDS ORDERED: AMBISOME INH SCH (07:00)
[2020-01-27] MEDS ORDERED: SULFAMETHOXAZOLE/TRIMETHOPRIM DS 800/160MG TAB PO SCH (09:00)
[2020-01-27] MEDS ORDERED: AZITHROMYCIN 250 MG TAB PO SCH (09:00)
== END 2020-01-25 16:01 | disposition home or self-care (01) ==
LOC: 2N 09:33 → ED 09:33 → SUATTDRO 13:17 → 2W 14:08

== ENCOUNTER 2020-02-11 16:34 | Observation (INO) ==
[2020-02-11] MEDS ORDERED: SODIUM CHLORIDE 0.9% 250 ML IV PRN ×2 (17:11→20:51)
[2020-02-11] MEDS ORDERED: PANTOprazole 80 MG in DEXTROSE 5% 100 ML IV ONE (17:16)
[2020-02-11] MEDS ORDERED: PANTOPRAZOLE BOLUS/DRIP 1 EA IV STA (17:16)
[2020-02-11 17:44] LABS: Hematocrit (blood only) 22.5 % (37-47); Hemoglobin 7.3 g/dL (12.0-16.0)
[2020-02-11] MEDS: PANTOprazole 40 MG in DEXTROSE 5% 100 ML IV SCH (18:24)
[2020-02-11] MEDS ORDERED: METOPROLOL TARTRATE 1 MG/ML VIAL IV STA (21:49)
[2020-02-11] MEDS: MAGNESIUM SULFATE / D5W 1 GM/100 ML BAG IV SCH (21:59)
--- NOTE | 2020-02-12 00:42 | Emergency Department Note ---
History of Present Illness General Chief complaint: Abnormal Labs/Diagnostic Testing Stated complaint: hemoglobin low Source: patient, family and RN notes reviewed Mode of arrival: ambulatory Limitations: no limitations History of Present Illness Provider complaint: Anemia, post lung transplant This patient is a 59-year-old female who presents the emergency department with complaints of low blood counts after the home health nurse tomasa her blood earlier today. Patient states in December she had a bilateral lung transplant at [facility]. Patient states she received several blood transfusions during her stay over many weeks in the hospital. Patient complains of chronic nausea, difficulty eating due to the nausea, weight loss and epigastric discomfort since the surgery. She has been working with her transplant team to reduce her medications thinking this may be the cause. She had several episodes of diarrhea over the last 2 days but states it is more of a light brown/oily stool. She believes it is related to the Reglan they have prescribed. Patient states she does take Protonix daily. She did have an episode of hypoglycemia since her discharge in January required hospitalization. Currently the patient acknowledges some fatigue and shortness of breath with exertion but denies any chest pain, fevers, cough, significant abdominal discomfort, vomiting or bright red blood per rectum. Patient's notes that they checked her stool several times during her stay at [facility] and "never found any bleeding." Home Medications Home Medications Medication Instructions Recorded Confirmed Type atorvastatin 40 mg tablet 40 mg PO DIRECTED 04/24/19 02/11/20 History albuterol sulfate 2.5 mg INH DIRECTED 01/24/20 02/11/20 History amphotericin B 25 mg INHALATION DIRECTED 01/24/20 02/11/20 History azithromycin 250 mg PO DIRECTED 01/24/20 02/11/20 History ferrous sulfate 325 mg PO DIRECTED 01/24/20 02/11/20 History metoclopramide HCl 10 mg PO DIRECTED 01/24/20 02/11/20 History metoprolol tartrate 50 mg PO BID 01/24/20 02/11/20 History mycophenolate sodium [Myfortic] 900 mg PO DIRECTED 01/24/20 02/11/20 History ondansetron 4 mg PO DIRECTED 01/24/20 02/11/20 History pantoprazole 40 mg PO QAM 01/24/20 02/11/20 History potassium chloride 20 meq PO DIRECTED 01/24/20 02/11/20 History prednisone 20 mg PO QAM 01/24/20 02/11/20 History sulfamethoxazole-trimethoprim 1 tab PO 3XWK 01/24/20 02/11/20 History tacrolimus 1 mg PO Q12H 01/24/20 02/11/20 History tacrolimus 5 mg PO Q12H 01/24/20 02/11/20 History tobramycin sulfate 120 mg INHALATION DIRECTED 01/24/20 02/11/20 History trazodone 50 mg PO HS 01/24/20 02/11/20 History valganciclovir 900 mg PO QAM 01/24/20 02/11/20 History metformin 500 mg PO DAILY #30 tab 01/25/20 02/11/20 Rx aspirin [Aspirin Low Dose] 81 mg PO QAM 02/11/20 02/11/20 History furosemide 40 mg PO QAM PRN 02/11/20 02/11/20 History magnesium chloride [Slow-Mag] 71.5 mg PO DIRECTED 02/11/20 02/11/20 History melatonin 3 mg PO HS 02/11/20 02/11/20 History Allergies Allergy/AdvReac Type Severity Reaction Status Date / Time glimepiride AdvReac Severe Fainting Verified 02/11/20 17:52 Past Med/Surg History Medical History ASCUS of cervix with negative high risk HPV Cholesteatoma of both middle ears Chronic mastoiditis Chronic obstructive pulmonary disease Chronic respiratory failure with hypoxia and hypercapnia Chronic tympanomastoiditis Encounter for mastoidectomy cavity debridement History of actinic keratosis Hypercholesterolemia LGSIL on Pap smear of cervix Osteoporosis Paroxysmal A-fib Postmenopausal Pulmonary emphysema Pulmonary hypertension Surgical History History of colposcopy History of ear surgery Hx of colonoscopy Hx of tonsillectomy Lung transplant status, bilateral 11/11/2019 [facility] S/P cardiac cath S/P dilation and curettage S/P wisdom tooth extraction Family History Mother Adenocarcinoma of lung Osteoporosis Rheumatoid arthritis Lung cancer Myocardial infarction Aunt Breast cancer maternal aunt Grandfather (Paternal) Colorectal cancer Father Lung cancer Denies family history of Ovarian cancer Social History Smoking Status: Former smoker Cigarettes Per Day: 1 ppd for 23 years; Hx Alcohol Use: No Hx Substance Use: No Preferred Language: Togolese Communication Ability: Effective Dam Tender Assistant Required: No Beliefs That Will Affect Care: None marital status: Current Living Situation: Spouse Feels Safe at Home: Yes Review of Systems See HPI for pertinent positives & negatives. and A total of 10 systems reviewed and were otherwise negative Physical Exam Vital Signs Vital Signs - 24 hr 02/11/20 16:41 02/11/20 16:57 02/11/20 17:00 Temperature 37.0 C Temperature Source Oral Pulse Rate 83 83 80 Pulse Rate [Right Finger] Pulse Rate from SpO2 Sensor Respiratory Rate 18 20 19 Respiratory Effort / Characteristics Respiratory Depth Blood Pressure 112/48 L Blood Pressure [Right Arm] Blood Pressure Mean 69 Blood Pressure Mean [Right Arm] Pulse Oximetry 94 Oxygen Delivery Method Sepsis Recent Fever Within 48 Hours No Sepsis New/Unexplained Change in Mental Status No Sepsis Action Taken by Nursing No Action Required 02/11/20 17:10 02/11/20 17:20 02/11/20 17:30 Temperature Temperature Source Pulse Rate 90 82 85 Pulse Rate [Right Finger] Pulse Rate from SpO2 Sensor Respiratory Rate 19 20 28 H Respiratory Effort / Characteristics Respiratory Depth Blood Pressure Blood Pressure [Right Arm] Blood Pressure Mean Blood Pressure Mean [Right Arm] Pulse Oximetry Oxygen Delivery Method Sepsis Recent Fever Within 48 Hours Sepsis New/Unexplained Change in Mental Status Sepsis Action Taken by Nursing 02/11/20 17:40 02/11/20 17:50 02/11/20 18:00 Temperature Temperature Source Pulse Rate 80 77 85 Pulse Rate [Right Finger] Pulse Rate from SpO2 Sensor Respiratory Rate 22 22 30 H Respiratory Effort / Characteristics Respiratory Depth Blood Pressure Blood Pressure [Right Arm] Blood Pressure Mean Blood Pressure Mean [Right Arm] Pulse Oximetry Oxygen Delivery Method Sepsis Recent Fever Within 48 Hours Sepsis New/Unexplained Change in Mental Status Sepsis Action Taken by Nursing 02/11/20 18:10 02/11/20 18:20 02/11/20 18:24 Temperature Temperature Source Pulse Rate 81 87 86 Pulse Rate [Right Finger] Pulse Rate from SpO2 Sensor Respiratory Rate 20 17 20 Respiratory Effort / Characteristics Respiratory Depth Blood Pressure 129/74 Blood Pressure [Right Arm] Blood Pressure Mean 81 Blood Pressure Mean [Right Arm] Pulse Oximetry Oxygen Delivery Method Sepsis Recent Fever Within 48 Hours Sepsis New/Unexplained Change in Mental Status Sepsis Action Taken by Nursing 02/11/20 18:30 02/11/20 18:40 02/11/20 18:50 Temperature Temperature Source Pulse Rate 83 86 88 Pulse Rate [Right Finger] Pulse Rate from SpO2 Sensor Respiratory Rate 24 25 H 22 Respiratory Effort / Characteristics Respiratory Depth Blood Pressure Blood Pressure [Right Arm] Blood Pressure Mean Blood Pressure Mean [Right Arm] Pulse Oximetry Oxygen Delivery Method Sepsis Recent Fever Within 48 Hours Sepsis New/Unexplained Change in Mental Status Sepsis Action Taken by Nursing 02/11/20 19:00 02/11/20 19:10 02/11/20 19:11 Temperature Temperature Source Pulse Rate 87 87 88 Pulse Rate [Right Finger] 88 Pulse Rate from SpO2 Sensor 87 89 Respiratory Rate 21 23 24 Respiratory Effort / Characteristics Non-Labored Respiratory Depth Normal Blood Pressure 118/80 Blood Pressure [Right Arm] 118/80 Blood Pressure Mean 85 Blood Pressure Mean [Right Arm] 92 Pulse Oximetry 95 97 Oxygen Delivery Method Room Air Sepsis Recent Fever Within 48 Hours Sepsis New/Unexplained Change in Mental Status Sepsis Action Taken by Nursing 02/11/20 19:20 02/11/20 19:30 02/11/20 19:40 Temperature Temperature Source Pulse Rate 82 83 83 Pulse Rate [Right Finger] Pulse Rate from SpO2 Sensor 83 83 82 Respiratory Rate 21 20 17 Respiratory Effort / Characteristics Respiratory Depth Blood Pressure Blood Pressure [Right Arm] Blood Pressure Mean Blood Pressure Mean [Right Arm] Pulse Oximetry 98 97 98 Oxygen Delivery Method Sepsis Recent Fever Within 48 Hours Sepsis New/Unexplained Change in Mental Status Sepsis Action Taken by Nursing 02/11/20 19:50 02/11/20 19:56 02/11/20 20:00 Temperature Temperature Source Pulse Rate 84 83 83 Pulse Rate [Right Finger] 84 Pulse Rate from SpO2 Sensor 85 84 83 Respiratory Rate 19 20 20 Respiratory Effort / Characteristics Respiratory Depth Blood Pressure 145/75 H Blood Pressure [Right Arm] 145/75 H Blood Pressure Mean 85 Blood Pressure Mean [Right Arm] 98 Pulse Oximetry 98 98 99 Oxygen Delivery Method Sepsis Recent Fever Within 48 Hours Sepsis New/Unexplained Change in Mental Status Sepsis Action Taken by Nursing 02/11/20 20:10 02/11/20 20:20 02/11/20 20:30 Temperature Temperature Source Pulse Rate 90 88 93 H Pulse Rate [Right Finger] Pulse Rate from SpO2 Sensor 90 87 Respiratory Rate 23 22 19 Respiratory Effort / Characteristics Respiratory Depth Blood Pressure Blood Pressure [Right Arm] Blood Pressure Mean Blood Pressure Mean [Right Arm] Pulse Oximetry 98 99 Oxygen Delivery Method Sepsis Recent Fever Within 48 Hours Sepsis New/Unexplained Change in Mental Status Sepsis Action Taken by Nursing 02/11/20 20:40 02/11/20 20:50 02/11/20 21:00 Temperature Temperature Source Pulse Rate 93 H 89 90 Pulse Rate [Right Finger] Pulse Rate from SpO2 Sensor 90 Respiratory Rate 24 22 22 Respiratory Effort / Characteristics Respiratory Depth Blood Pressure Blood Pressure [Right Arm] Blood Pressure Mean Blood Pressure Mean [Right Arm] Pulse Oximetry 98 Oxygen Delivery Method Sepsis Recent Fever Within 48 Hours Sepsis New/Unexplained Change in Mental Status Sepsis Action Taken by Nursing 02/11/20 21:10 02/11/20 21:11 02/11/20 21:20 Temperature 37 C 36.8 C Temperature Source Oral Oral Pulse Rate 101 H 98 H 95 H Pulse Rate [Right Finger] Pulse Rate from SpO2 Sensor 101 H 98 H 96 H Respiratory Rate 19 23 21 Respiratory Effort / Characteristics Respiratory Depth Blood Pressure 110/64 110/64 111/53 L Blood Pressure [Right Arm] Blood Pressure Mean 73 79 62 Blood Pressure Mean [Right Arm] Pulse Oximetry 95 95 97 Oxygen Delivery Method Sepsis Recent Fever Within 48 Hours Sepsis New/Unexplained Change in Mental Status Sepsis Action Taken by Nursing 02/11/20 21:21 02/11/20 21:25 02/11/20 21:30 Temperature 36.8 C Temperature Source Oral Pulse Rate 99 H 95 H 82 Pulse Rate [Right Finger] Pulse Rate from SpO2 Sensor 98 H 96 H Respiratory Rate 30 H 23 19 Respiratory Effort / Characteristics Respiratory Depth Blood Pressure 105/53 L 119/71 Blood Pressure [Right Arm] Blood Pressure Mean 61 87 Blood Pressure Mean [Right Arm] Pulse Oximetry 98 98 99 Oxygen Delivery Method Sepsis Recent Fever Within 48 Hours Sepsis New/Unexplained Change in Mental Status Sepsis Action Taken by Nursing 02/11/20 21:35 02/11/20 21:36 02/11/20 21:40 Temperature Temperature Source Pulse Rate 102 H 102 H 94 H Pulse Rate [Right Finger] Pulse Rate from SpO2 Sensor 99 H 98 H Respiratory Rate 27 H 26 H 23 Respiratory Effort / Characteristics Respiratory Depth Blood Pressure 121/63 Blood Pressure [Right Arm] Blood Pressure Mean 73 Blood Pressure Mean [Right Arm] Pulse Oximetry 97 Oxygen Delivery Method Sepsis Recent Fever Within 48 Hours Sepsis New/Unexplained Change in Mental Status Sepsis Action Taken by Nursing 02/11/20 21:45 02/11/20 21:47 02/11/20 21:50 Temperature Temperature Source Pulse Rate 163 H 155 H 94 H Pulse Rate [Right Finger] Pulse Rate from SpO2 Sensor 105 H 109 H 100 H Respiratory Rate 16 24 23 Respiratory Effort / Characteristics Respiratory Depth Blood Pressure 74/53 L 110/54 L Blood Pressure [Right Arm] Blood Pressure Mean 67 62 Blood Pressure Mean [Right Arm] Pulse Oximetry 98 97 96 Oxygen Delivery Method Sepsis Recent Fever Within 48 Hours Sepsis New/Unexplained Change in Mental Status Sepsis Action Taken by Nursing 02/11/20 21:53 02/11/20 21:54 02/11/20 22:00 Temperature Temperature Source Pulse Rate 96 H 147 H 146 H Pulse Rate [Right Finger] Pulse Rate from SpO2 Sensor 92 H 82 Respiratory Rate 21 23 Respiratory Effort / Characteristics Respiratory Depth Blood Pressure 114/85 114/85 121/76 Blood Pressure [Right Arm] Blood Pressure Mean 96 88 Blood Pressure Mean [Right Arm] Pulse Oximetry 97 93 Oxygen Delivery Method Sepsis Recent Fever Within 48 Hours Sepsis New/Unexplained Change in Mental Status Sepsis Action Taken by Nursing 02/11/20 22:01 02/11/20 22:15 02/11/20 23:19 Temperature Temperature Source Pulse Rate 152 H Pulse Rate [Right Finger] 82 80 Pulse Rate from SpO2 Sensor 153 H Respiratory Rate 17 18 24 Respiratory Effort / Characteristics Respiratory Depth Blood Pressure Blood Pressure [Right Arm] 119/71 151/84 H Blood Pressure Mean Blood Pressure Mean [Right Arm] 87 106 Pulse Oximetry 98 99 98 Oxygen Delivery Method Sepsis Recent Fever Within 48 Hours Sepsis New/Unexplained Change in Mental Status Sepsis Action Taken by Nursing Vital signs reviewed. General: Chronically ill-appearing 59-year-old female, in no significant distress HEENT: Pale conjunctiva, PERRLA, neck supple. Moist mucous membranes. Cardiovascular: Regular rate and rhythm, no extra sounds. Pulmonary: Clear to auscultation bilaterally, normal work of breathing. Abdomen: Soft, nontender, nondistended, positive bowel sounds. Musculoskeletal: Atraumatic, no peripheral edema. Neurologic: Patient awake alert and oriented x 3 : No gross blood, normal external mucosa. Light brown stool guaiac positive Skin: Warm, dry, no rash Course Administered Medications Pantoprazole Sodium 40 mg/ (Dextrose) 100 mls @ 20 mls/hr IV Q5H FRANCIE Stop: 03/12/20 17:35 Last Infusion: 02/11/20 22:47 Dose: 0 mg/hr, 0 mls/hr Documented by: [id number] Admin: 02/11/20 18:24 Dose: 8 mg/hr, 20 mls/hr Documented by: [id number] Discontinued Medications Pantoprazole Sodium (Protonix Bolus/Drip) 0 mls @ 1 mls/hr IV ONE STA Stop: 02/11/20 17:17 Last Infusion: 02/11/20 20:19 Dose: 0 mls/hr Documented by: [id number] Admin: 02/11/20 18:24 Dose: 1 mls/hr Documented by: [id number] Pantoprazole Sodium 80 mg/ (Dextrose) 120 mls @ 400 mls/hr IV NOW ONE Stop: 02/11/20 17:33 Last Infusion: 02/11/20 18:24 Dose: 0 mls/hr Documented by: [id number] Admin: 02/11/20 18:07 Dose: 400 mls/hr Documented by: [id number] Magnesium Sulfate/Dextrose (Magnesium Sulfate / D5w) 1 gm in 100 mls @ 100 mls/hr IV Q1H FRANCIE Stop: 02/11/20 23:50 Last Infusion: 02/11/20 23:27 Dose: 0 mls/hr Documented by: [id number] Admin: 02/11/20 21:59 Dose: 100 mls/hr Documented by: [id number] Metoprolol Tartrate (Metoprolol Tartrate 1 Mg/Ml Vial) 5 mg IV NOW STA Stop: 02/11/20 21:50 Last Admin: 02/11/20 21:54 Dose: 5 mg Documented by: [id number] Critical Care Time Critical Care Time: Yes Total Critical Care Time: 60 I have personally spent greater than 60 minutes of critical care time in the direct management of this patient. This includes bedside care, interpretation of diagnostic studies, and testing, discussion with consultants, patient, and family members, and other required patient management activities. This 60 minutes is in excess of all separately billable procedures. Medical Decision Making Differential Diagnosis Differential diagnosis: Etiologies such as esophagitis, variceal bleed, Boerhaaves, Dotsero-Gomez tear, gastritis, peptic ulcer disease, AVM, inflammatory bowel disease, ischemia, diverticulosis, colitis, malignancy, coagulopathy, thrombocytopenia, fissure, hemorrhoid, epistaxis , as well as others were entertained. Medical Records Attestation: I reviewed the patient's medical records. Home Medications Current Medication List: was personally reviewed by me Laboratory Data Attestation: I reviewed the patient's lab results. Result diagrams: 02/11/20 17:34 Lab Results 02/11/20 02/11/20 02/11/20 Range/Units 17:34 17:50 18:44 Hgb 7.3 L (12.0-16.0) g/dL Hct 22.5 L (37-47) % POC Glucose (70-99) mg/dl Blood Type O Positive Blood Type Recheck O Positive Antibody Screen NEGATIVE Crossmatch See Detail 02/11/20 Range/Units 20:28 Hgb (12.0-16.0) g/dL Hct (37-47) % POC Glucose 124 H (70-99) mg/dl Blood Type Blood Type Recheck Antibody Screen Crossmatch Imaging Data Attestation: I personally reviewed and interpreted this imaging study as follows: ECG Data Attestation: I personally reviewed and interpreted this ECG as follows: Indication: + weakness Rate (beats per minute): 79 Rhythm: + normal sinus ECG Intervals/blocks: + Normal QT-c ECG [place]: + Normal ECG ST segments: + T-wave inversions (Anterior) ECG Findings: no PACs and no PVCs Additional Comments: EKG #2 at 21:51 atrial fibrillation with RVR at [address] changes. Mildly prolonged QTC at 462. When compared to previous from same day, rapid atrial fibrillation has replaced a normal sinus rhythm. Blood Pressure Blood Pressure Findings: Elevated blood pressure Blood Pressure Disposition: further management by hospitalist MDM Narrative This patient was evaluated and appeared to be in no significant distress. Records were reviewed from the outpatient setting which revealed a hemoglobin of 6.9. Repeat H&H reveals a hemoglobin of 7.3. Patient stool is guaiac positive. Given the patient's transplant status and multiple other medical comorbidities, it is felt it would be best for the patient to receive PRBCs. Patient was consented for blood transfusion. I did speak with the patient's transplant volunteer services manager, Dr. Arias at [facility] who recommended transfusing 1 unit PRBCs, leukocyte reduced. We were able to give irradiated blood product. Patient was given IV Protonix bolus and drip. Patient did have an episode of rapid atrial fibrillation during her stay in the emergency department. IV metoprolol was ordered however the patient converted to a normal sinus rhythm prior to the administration of the medication. Metoprolol was administered to prevent the patient from returning to atrial fibrillation. Patient was also given 2 g of IV magnesium for a mag of 1.5. The patient was accepted by Dr. Arias to [facility] in transfer however transportation arrangements could not be arranged until morning. The patient is seemingly stable at this time. Case was discussed with the [facility] hospitalist, Dr. Álvarez, who will observe the patient until ALS transport is available. Patient is aware of the plan and agrees. Impression & Plan Status post transplant, lung, Anemia, GI bleeding Discharge Plan Visit Data Chief Complaint: Abnormal Labs/Diagnostic Testing Stated Complaint: hemoglobin low ED Provider: Kathleen Herzog Discharge Problem: Status post transplant, lung, Anemia, GI bleeding Forms Stand Alone Forms: My [facility] Prescriptions Prescriptions: No Action atorvastatin 40 mg tablet 40 mg PO DIRECTED RF: 0 trazodone 50 mg tablet 50 mg PO HS RF: 0 potassium chloride 20 mEq tablet,ER particles/crystals 20 meq PO DIRECTED RF: 0 metoclopramide HCl 5 mg tablet 10 mg PO DIRECTED RF: 0 pantoprazole 40 mg tablet,delayed release (DR/EC) 40 mg PO QAM RF: 0 metoprolol tartrate 50 mg tablet 50 mg PO BID RF: 0 prednisone 10 mg tablet 20 mg PO QAM RF: 0 azithromycin 250 mg tablet 250 mg PO DIRECTED RF: 0 sulfamethoxazole-trimethoprim 800-160 mg tablet 1 tab PO 3XWK RF: 0 ferrous sulfate 325 mg (65 mg iron) Tablet 325 mg PO DIRECTED RF: 0 ondansetron 4 mg tablet,disintegrating 4 mg PO DIRECTED RF: 0 mycophenolate sodium [Myfortic] 180 mg Tablet,Delayed Release (Dr/Ec) 900 mg PO DIRECTED RF: 0 albuterol sulfate 2.5 mg /3 mL (0.083 %) solution for nebulization 2.5 mg INH DIRECTED RF: 0 tobramycin sulfate 40 mg/mL solution 120 mg inhalation DIRECTED RF: 0 valganciclovir 450 mg Tablet 900 mg PO QAM RF: 0 tacrolimus 5 mg Capsule 5 mg PO Q12H RF: 0 amphotericin B 50 mg Recon Soln 25 mg inhalation DIRECTED RF: 0 tacrolimus 1 mg Capsule 1 mg PO Q12H RF: 0 metformin 500 mg tablet extended release 24 hr 500 mg PO DAILY Qty: 30 RF: 3 furosemide 40 mg tablet 40 mg PO QAM PRN (Reason: Fluid Retention) RF: 0 melatonin 3 mg Tablet 3 mg PO HS RF: 0 aspirin [Aspirin Low Dose] 81 mg Tablet,Delayed Release (Dr/Ec) 81 mg PO QAM RF: 0 Slow-Mag 71.5 mg tablet,delayed release (DR/EC) 71.5 mg PO DIRECTED RF: 0 Discharge Problem: Anemia Qualifiers: Anemia type: iron deficiency Iron deficiency anemia type: chronic blood loss Qualified Code(s): D50.0 - Iron deficiency anemia secondary to blood loss (chronic) GI bleeding Qualifiers: GI bleed type/associated pathology: unspecified gastrointestinal hemorrhage ty pe Qualified Code(s): K92.2 - Gastrointestinal hemorrhage, unspecified
[2020-02-12] MEDS ORDERED: ONDANSETRON HOME PACK 4MG OD TAB PO SCH (03:35)
[2020-02-12] MEDS ORDERED: ONDANSETRON INJ 2 MG/ML 2 ML VIAL IV PRN (03:35)
[2020-02-12] MEDS ORDERED: TACROLIMUS 1 MG CAP PO SCH ×2 (03:35→09:00)
[2020-02-12] MEDS ORDERED: ACETAMINOPHEN 325 MG TAB PO PRN (03:35)
[2020-02-12] MEDS ORDERED: SODIUM CHLORIDE 0.9% 1000ML 1,000 ML IV SCH (03:35)
[2020-02-12] MEDS ORDERED: AZITHROMYCIN 250 MG TAB PO SCH (03:35)
[2020-02-12] MEDS ORDERED: ATORVASTATIN 40 MG TAB PO SCH (03:35)
[2020-02-12] MEDS ORDERED: NON-FORMULARY MEDICATION (Magnesium Chloride [Slow-Mag] 71.5 MG) PO SCH ×2 (03:35→09:00)
[2020-02-12] MEDS ORDERED: POTASSIUM CHLORIDE 20 MEQ TABCR PO SCH (03:35)
[2020-02-12] MEDS ORDERED: NITROGLYCERIN SL 0.4 MG/TAB TAB SL PRN (03:35)
[2020-02-12] MEDS ORDERED: ALBUTEROL 0.083% NEBU SOLN 3 ML VIAL INH SCH (03:35)
[2020-02-12] MEDS ORDERED: FUROSEMIDE 40 MG TAB PO PRN (03:35)
[2020-02-12] MEDS ORDERED: METOCLOPRAMIDE HCL 10 MG TABLET PO SCH (03:35)
[2020-02-12] MEDS ORDERED: MYCOPHENOLATE SODIUM PO SCH (03:35)
--- NOTE | 2020-02-12 04:06 | History and Physical Report ---
DATE OF ADMISSION: 02/12/2020 CHIEF COMPLAINT: Anemia, history of gastrointestinal bleed. HISTORY OF PRESENT ILLNESS: This is a 59-year-old female with past medical history significant for double lung transplant in [facility] on 11/11/2019, hyperlipidemia, paroxysmal atrial fibrillation, diabetes, chronic kidney disease stage III, anemia, presents because of low blood count on on labs drawn as outpatient. She has bilateral lung transplant at [facility]. During that time she had multiple blood transfusions during her stay for two weeks in the hospital. She has had chronic nausea, thought to be from her medication , transplant team is working to reduce the medications. She still has some nausea now. She had several episodes of diarrhea, but she had a last bowel movement was earlier today, now she is okay. She was here in the hospital in January with hypoglycemic episode. At that time glipizide was stopped and she was placed on metformin. The patient denies any blood in the stool or black stools, but Hemoccult was positive in the ER. Denies any chest pain, no shortness of breath currently, no headache, no blurred vision, no earache, no runny nose, no sore throat. Ambulates slowly as per the patient without any support. Normal bladder movements. No fever, no chills. Currently resting comfortably and hemodynamically stable. ER called the transplant at [facility] because of her multiple medical problems they are okay for transfer to the [facility] but currently there is no transport available until physician neonatology, so we were called for admission to observe in the hospital util she is transferred to [facility]. ALLERGIES: GLIMEPIRIDE. PAST MEDICAL HISTORY: As mentioned above. PAST SURGICAL HISTORY: Bilateral lung transplant, colposcopy, ear surgery, tonsillectomy, colonoscopy, status post cardiac catheterization, status post dilatation and curettage, status post wisdom tooth extraction. FAMILY HISTORY: Significant for mother had adenocarcinoma of the lung, osteoporosis, rheumatoid arthritis, myocardial infarction. Maternal aunt has breast cancer, paternal grandfather had colorectal cancer. Father had lung cancer. SOCIAL HISTORY: Smoked 1 pack a day for 23 years. No alcohol use. No drug use. REVIEW OF SYMPTOMS: As per HPI. Rest of review of symptoms negative. MEDICATIONS: The patient is on Slow-Mag 71.5 mg daily, metformin 500 mg daily, CPAP, atorvastatin 40 mg p.o. daily, trazodone 50 mg p.o. daily, potassium chloride 20 mEq p.o. daily, Reglan 20 mg p.o. t.i.d., Protonix 40 mg p.o. daily, metoprolol tartrate 50 mg p.o. b.i.d., prednisone 20 mg p.o. daily, azithromycin 250 mg p.o. on Monday, Monday and Fridays, Bactrim 1 tablet double strength and 1 tablet Monday, Monday and Monday, ferrous sulfate 325 mg p.o. b.i.d., Zofran 4 mg p.o. t.i.d., Myfortic delayed release 900 mg p.o. b.i.d., albuterol 2.5 mg inhalation p.r.n., tobramycin 120 mg inhalation b.i.d., valganciclovir 1800 mg p.o. daily, tacrolimus 5 mg p.o. b.i.d., amphotericin 25 mg inhalation Monday, Monday and Monday, tacrolimus 1 mg p.o. b.i.d. PHYSICAL EXAMINATION: GENERAL: The patient is alert and awake, weak. VITAL SIGNS: Temperature 36.8, pulse 80, respiratory rate 24, blood pressure 151/84, oxygen 98% on room air. HEENT: Pupils equal, round, reactive to light. Oral mucosa dry. NECK: No JVD, no neck masses. CARDIOVASCULAR: S1, S2 heard, regular rate and rhythm, no murmur, no gallop. RESPIRATORY SYSTEM: Normal AP diameter. No accessory muscle use. No wheezing, no crackles. ABDOMEN: Soft, bowel sounds present, nontender. No distention. CENTRAL NERVOUS SYSTEM: Cranial nerves II-XII grossly intact. Nonfocal. EXTREMITIES: No edema, no erythema. LABORATORY DATA: WBC 3.2, hemoglobin 7.3, hematocrit 22.5. Initial WBC 3.2, hemoglobin 6.9, hematocrit 21.8, platelets 278. Sodium 134, potassium 3.9, chloride 104, bicarbonate 22, BUN 32, creatinine 1.5, serum glucose 124, calcium 8.8, phosphorus 2.7, magnesium 1.5, total bilirubin 0.48, direct bilirubin 0.1, AST 13, ALT 19, alkaline phosphatase 45. ASSESSMENT AND PLAN: This is a 59-year-old female with abnormal labs and found to have anemia and Hemoccult positive. 1. Anemia, hemoglobin 6.9, baseline hemoglobin in the 7 and 8 range from anemia of chronic kidney disease . Hemoccult was positive in the ER, she received 1 unit of PRBC. she was also started on Protonix drip. Plan to transfer to [facility], awaiting transfer, will monitor in the med/tele until the patient is transferred. 2. ROYER on chronic kidney disease stage III, baseline creatinine around 1.1-1.2, present creatinine of 1.5 Getting fluids. Received PRBC. Follow the labs. 3. Hypomagnesemia, replaced. 4. Lung transplant, bilateral. Continue her home meds. . The patient will be transferred to [facility]. 5. History of paroxysmal atrial fibrillation. The patient had a brief episode of atrial fibrillation in the ER, but resolved soon. Continue with metoprolol. 6. Type 2 diabetes, on metformin. We will place on insulin sliding scale. 7. Deep venous thrombosis prophylaxis, sequential compression devices. DISPOSITION: Monitor in the med/tele. Await transfer to [facility]. Full code. MTDD
[2020-02-12] MEDS: MAGNESIUM SULFATE / D5W 1 GM/100 ML BAG IV SCH (04:09)
[2020-02-12] MEDS: PANTOprazole 40 MG in DEXTROSE 5% 100 ML IV SCH (04:11)
[2020-02-12] MEDS ORDERED: GLUCOSE 40% GEL 15 GM TUBE PO PRN (04:15)
[2020-02-12] MEDS ORDERED: CARBOHYDRATES FOR HYPOGLYCEMIA PO PRN (04:15)
[2020-02-12] MEDS ORDERED: GLUCOSE 10 TABS/TUBE PO PRN (04:15)
[2020-02-12] MEDS ORDERED: GLUCAGON FOR INJ 1 MG VIAL IM PRN (04:15)
[2020-02-12] MEDS ORDERED: DEXTROSE 50% 50 ML SYRINGE IV PRN (04:15)
[2020-02-12] MEDS ORDERED: INSULIN ASPART 100 UNITS/ML 3 ML PEN SC SCH (06:00)
[2020-02-12 07:32] LABS: Hemoglobin 8.7 g/dL (12.0-16.0); Mean Corpuscular Hemoglobin 30.9 pg (25-34); Mean Corpuscular Hgb Conc 33.5 g/dL (32-36); Mean Corpuscular Volume 92.2 fL (80-100); Mean Platelet Volume 8.6 fL (7.4-10.4); Platelet Count 201 K/uL (130-400); RDW Standard Deviation 62.4 fL (36.4-46.3); Red Blood Count 2.82 M/uL (4.2-5.4); White Blood Count 2.72 K/uL (4.8-10.8)
[2020-02-12 07:57] LABS: Anisocytosis Present; Immature Granulocytes % (auto) 7.4 %; Lymphocytes # (auto) 0.43 K/uL (1.2-3.4); Lymphocytes % (auto) 15.8 %; Monocytes # (auto) 0.15 K/uL (0.11-0.59); Monocytes % (auto) 5.5 %; Neutrophils # (auto) 1.94 K/uL (1.4-6.5); Neutrophils % (auto) 71.3 %
[2020-02-12 08:03] LABS: BUN Creatinine Ratio 20.1 (10-20); Calcium 9.2 mg/dl (8.5-10.1); Creatinine Clr Calc Pharmacy 43.6 ml/min; Est GFR (African American) 58.2; Est GFR (Non-African American) 50.3; Magnesium 2.2 mg/dl (1.8-2.4)
--- NOTE | 2020-02-12 08:30 | Discharge Summary ---
Date of Service February 12, 2020 Admission HPI Per Admitting Provider This is a 59-year-old female with past medical history significant for double lung transplant in [facility] on 11/11/2019, hyperlipidemia, paroxysmal atrial fibrillation, diabetes, chronic kidney disease stage III, anemia, presents because of low blood count on on labs drawn as outpatient. She has bilateral lung transplant at [facility]. During that time she had multiple blood transfusions during her stay for two weeks in the hospital. She has had chronic nausea, thought to be from her medication , transplant team is working to reduce the medications. She still has some nausea now. She had several episodes of diarrhea, but she had a last bowel movement was earlier today, now she is okay. She was here in the hospital in January with hypoglycemic episode. At that time glipizide was stopped and she was placed on metformin. The patient denies any blood in the stool or black stools, but Hemoccult was positive in the ER. Denies any chest pain, no shortness of breath currently, no headache, no blurred vision, no earache, no runny nose, no sore throat. Ambulates slowly as per the patient without any support. Normal bladder movements. No fever, no chills. Currently resting comfortably and hemodynamically stable. ER called the transplant at [facility] because of her multiple medical problems they are okay for transfer to the [facility] but currently there is no transport available until channel turner, so we were called for admission to observe in the hospital util she is transferred to [facility]. Admission Exam Per Admitting Provider PHYSICAL EXAMINATION: GENERAL: The patient is alert and awake, weak. VITAL SIGNS: Temperature 36.8, pulse 80, respiratory rate 24, blood pressure 151/84, oxygen 98% on room air. HEENT: Pupils equal, round, reactive to light. Oral mucosa dry. NECK: No JVD, no neck masses. CARDIOVASCULAR: S1, S2 heard, regular rate and rhythm, no murmur, no gallop. RESPIRATORY SYSTEM: Normal AP diameter. No accessory muscle use. No wheezing, no crackles. ABDOMEN: Soft, bowel sounds present, nontender. No distention. CENTRAL NERVOUS SYSTEM: Cranial nerves II-XII grossly intact. Nonfocal. EXTREMITIES: No edema, no erythema. Principal Diagnosis GI BLEED. ANEMIA Discharge Data Allergies Allergy/AdvReac Type Severity Reaction Status Date / Time glimepiride AdvReac Severe Fainting Verified 02/11/20 17:52 Consultations 02/11/20 23:17 ED Decision to Admit Stat 02/12/20 03:35 Consult Case Management - Discharge Planning Routine Hospital Course (1) Anemia: This is a 59-year-old female with abnormal labs and found to have anemia and Hemoccult positive. 1. Anemia, hemoglobin 6.9, baseline hemoglobin in the 7 and 8 range from anemia of chronic kidney disease . Hemoccult was positive in the ER, she received 1 unit of PRBC. she was also started on Protonix drip. Plan to transfer to [facility], awaiting transfer, will monitor in the med/tele until the patient is transferred. 2. ROYER on chronic kidney disease stage III, baseline creatinine around 1.1-1.2, present creatinine of 1.5 Getting fluids. Received PRBC. Follow the labs. 3. Hypomagnesemia, replaced. 4. Lung transplant, bilateral. Continue her home meds. . The patient will be transferred to [facility]. 5. History of paroxysmal atrial fibrillation. The patient had a brief episode of atrial fibrillation in the ER, but resolved soon. Continue with metoprolol. 6. Type 2 diabetes, on metformin. We will place on insulin sliding scale. 7. Deep venous thrombosis prophylaxis, sequential compression devices. DISPOSITION: Monitor in the med/tele. Await transfer to [facility]. Full code. TRANSFERRED TO [facility]. (2) GI bleeding: (3) Acute renal failure superimposed on stage 3 chronic kidney disease: (4) Lung transplant status, bilateral: Total Time Total Time Spent Total Time Spent (In Minutes): 30MINUTES Discharge Plan Discharge Items Patient Disposition: Transfer Acute Care Hospital Reason For Visit: ABNORMAL LABS Discharge Diagnosis: Anemia Acute Kidney Injury History Bilateral lung transplant Activity: Per Instructions section Exercise/Sports: Wait until after follow-up appointment Non-emergency contact: Primary Care Provider and Surgeon Call non-emergency contact if: you have any medication questions, your symptoms worsen, your pain is not controlled, your pain is worsening, your pain is unusual for you, your pain is concerning for you and you have a fever Follow-up/Referrals: Jeferson Vinson MD [Primary Care Provider] - Dietitian Info: NPO for now until your follow up with Diet: Heart Healthy and Other - See Diet Comment Addtl Attending Provider Instructions: Follow up with at [facility] for further management as advised DO NOT TAKE ASPIRIN UNTIL FURTHER INSTRUCTIONS BY YOUR PHYSICIAN AT [facility]. Pending Studies at Discharge: Yes Studies:: Serology , Tacrolimus levels Stand-Alone Forms: My [facility] Skilled Items Patient informed of condition?: Yes DNR: No Discharge Level of Care: Other Communicable Disease: No Discharge Prognosis: Stable Lines: Peripheral IV Urinary Catheter: No Medications and DC Order Prescriptions: Continued atorvastatin 40 mg tablet 40 mg PO DIRECTED RF: 0 trazodone 50 mg tablet 50 mg PO HS RF: 0 potassium chloride 20 mEq tablet,ER particles/crystals 20 meq PO DIRECTED RF: 0 metoclopramide HCl 5 mg tablet 10 mg PO DIRECTED RF: 0 pantoprazole 40 mg tablet,delayed release (DR/EC) 40 mg PO QAM RF: 0 metoprolol tartrate 50 mg tablet 50 mg PO BID RF: 0 prednisone 10 mg tablet 20 mg PO QAM RF: 0 azithromycin 250 mg tablet 250 mg PO DIRECTED RF: 0 sulfamethoxazole-trimethoprim 800-160 mg tablet 1 tab PO 3XWK RF: 0 ferrous sulfate 325 mg (65 mg iron) Tablet 325 mg PO DIRECTED RF: 0 ondansetron 4 mg tablet,disintegrating 4 mg PO DIRECTED RF: 0 mycophenolate sodium [Myfortic] 180 mg Tablet,Delayed Release (Dr/Ec) 900 mg PO DIRECTED RF: 0 albuterol sulfate 2.5 mg /3 mL (0.083 %) solution for nebulization 2.5 mg INH DIRECTED RF: 0 tobramycin sulfate 40 mg/mL solution 120 mg inhalation DIRECTED RF: 0 valganciclovir 450 mg Tablet 900 mg PO QAM RF: 0 tacrolimus 5 mg Capsule 5 mg PO Q12H RF: 0 amphotericin B 50 mg Recon Soln 25 mg inhalation DIRECTED RF: 0 tacrolimus 1 mg Capsule 1 mg PO Q12H RF: 0 metformin 500 mg tablet extended release 24 hr 500 mg PO DAILY Qty: 30 RF: 3 furosemide 40 mg tablet 40 mg PO QAM PRN (Reason: Fluid Retention) RF: 0 melatonin 3 mg Tablet 3 mg PO HS RF: 0 aspirin [Aspirin Low Dose] 81 mg Tablet,Delayed Release (Dr/Ec) 81 mg PO QAM RF: 0 Slow-Mag 71.5 mg tablet,delayed release (DR/EC) 71.5 mg PO DIRECTED RF: 0 Discharge Orders: Discharge Order (Routine); Ordered 02/12/20 Ordered By: Garrett Steiner Admission Data Admit Date/Time: 02/12/20 01:52 Attending Provider: Garrett Steiner Admit Provider: Keith Álvarez Primary Care Provider: Jeferson Vinson Other Providers: Keith Álvarez
[2020-02-12] MEDS ORDERED: SULFAMETHOXAZOLE/TRIMETHOPRIM DS 800/160MG TAB PO SCH (09:00)
[2020-02-12] MEDS ORDERED: METOPROLOL TARTRATE 50 MG TAB PO SCH (09:00)
[2020-02-12] MEDS ORDERED: predniSONE 20 MG TAB PO SCH (09:00)
[2020-02-12] MEDS ORDERED: TRAZODONE HCL 50 MG TAB PO SCH (21:00)
[2020-02-12] MEDS ORDERED: MELATONIN 3 MG TAB PO SCH (21:00)
== END 2020-02-12 08:25 | disposition short-term general hospital (02) ==
LOC: ED 16:34 → 2N 16:34 → SUATTDRO 02-12 01:52 → 2N 02-12 02:48

== ENCOUNTER 2021-02-09 06:03 | Inpatient (IN) ==
[2021-02-09] MEDS ORDERED: ALBUT/IPRATROP 3MG/0.5MG NEB 3 ML VIAL INH STA (06:43)
[2021-02-09] MEDS ORDERED: dexAMETHasone**PF** 10 MG/ML VIAL IV ONE (06:48)
--- NOTE | 2021-02-09 06:51 | Emergency Department Note ---
History of Present Illness General Chief complaint: Vomiting Stated complaint: VOMITING,SOB,WHEEZING,COUGH Time Seen by Provider: 02/09/21 06:33 History of Present Illness This is a 60-year-old female who presents to the ED with a chief complaint of nausea, vomiting and cough as well as wheezing for the past several months. The patient states that her vomiting is sometimes associated with her cough but sometimes she has nausea independent of this. She reports a dry nonproductive cough. When I asked her why she came in today, she stated, " I am just tired of it." She states that she saw her carton lettering machine operator in the end of December. She states they really could not do much to help her. The patient states that she did not take any of her medication yesterday because of the symptoms. She is a double lung transplant patient. She had this done in [place]. She states that she has follow-up next month on the with her carton lettering machine operator. She took weekly he is using oxygen 1.5 L at night but has recently been using it the past week or so during the day. She does have nebulizers at home and she is using them. The patient has no fevers. No abdominal pains. No diarrhea. She does not do tube feedings through a PEG tube because of poor intake. Home Medications Medication Instructions Recorded Confirmed Type pantoprazole 40 mg tablet,delayed 40 mg PO HS 01/24/20 02/09/21 History release (Protonix) tacrolimus 5 mg capsule, 5 mg PO Q12H 01/24/20 02/09/21 History immediate-release (Prograf) valganciclovir 450 mg tablet 450 mg PO Q2D 01/24/20 02/09/21 History (Valcyte) hydrocortisone 20 mg tablet See Rx Instructions .ROUTE .COMPLEX 09/08/20 02/09/21 History (Cortef) metoprolol tartrate 25 mg tablet 37.5 mg PO BID 09/08/20 02/09/21 History prochlorperazine maleate 10 mg 10 mg PO BID 09/08/20 02/09/21 History tablet (Compazine) sulfamethoxazole 400 1 tab PO 2XWK 09/08/20 02/09/21 History mg-trimethoprim 80 mg tablet (Bactrim) Domperidone 20 mg PO QID 10/21/20 02/09/21 History Allergies Allergy/AdvReac Type Severity Reaction Status Date / Time glimepiride AdvReac Severe Fainting Verified 02/09/21 08:16 Past Med/Surg History Medical History (Updated 02/09/21 @ 08:52 by Nolan Rdz DO) ASCUS of cervix with negative high risk HPV Cholesteatoma of both middle ears Chronic mastoiditis Chronic obstructive pulmonary disease Chronic respiratory failure with hypoxia and hypercapnia Chronic tympanomastoiditis Encounter for mastoidectomy cavity debridement History of actinic keratosis Hypercholesterolemia LGSIL on Pap smear of cervix Osteoporosis Paroxysmal A-fib Postmenopausal Pulmonary emphysema Pulmonary hypertension Surgical History History of colposcopy History of ear surgery Hx of colonoscopy Hx of tonsillectomy Lung transplant status, bilateral 11/11/2019 [facility] Presby S/P cardiac cath S/P dilation and curettage S/P wisdom tooth extraction Family History Mother Adenocarcinoma of lung Osteoporosis Rheumatoid arthritis Lung cancer Myocardial infarction Aunt Breast cancer maternal aunt Grandfather (Paternal) Colorectal cancer Father Lung cancer Denies family history of Ovarian cancer Social History (Updated 02/09/21 @ 06:19 by Carrol Harrison DO) Smoking Status: Former smoker Tobacco Type: Cigarettes Cigarettes Per Day: 1 ppd for 23 years; Hx Alcohol Use: No Hx Substance Use: No Preferred Language: Estonian Communication Ability: Effective 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 Required: No Beliefs That Will Affect Care: None marital status: Current Living Situation: Spouse Feels Safe at Home: Yes Assistive Devices: Glasses Review of Systems A total of 10 systems reviewed and were otherwise negative Physical Exam Vital Signs Vital Signs - 24 hr 02/09/21 06:05 02/09/21 06:06 02/09/21 07:01 Temperature 36.7 C Temperature Source Temporal Artery Scan Pulse Rate 122 H Pulse Rate [Apical] 135 H 110 H Pulse Rhythm [Apical] Regular Pulse Strength [Apical] Normal Respiratory Rate 40 H 32 H 25 H Respiratory Effort / Characteristics Spontaneous Spontaneous Respiratory Depth Normal Respiratory Pattern Regular Blood Pressure 129/70 Blood Pressure [Right Arm] 141/76 H Blood Pressure Mean 89 Blood Pressure Mean [Right Arm] 97 Blood Pressure Position [Right Arm] Semi-fowlers Pulse Oximetry 95 86 L 94 Oxygen Delivery Method Nasal Cannula Room Air Nasal Cannula Oxygen Flow Rate 2 2 Sepsis Recent Fever Within 48 Hours No Sepsis New/Unexplained Change in Mental Status N/A Sepsis Action Taken by Nursing No Action Required 02/09/21 07:42 02/09/21 08:44 02/09/21 09:00 Temperature Temperature Source Pulse Rate Pulse Rate [Apical] 131 H 105 H 102 H Pulse Rhythm [Apical] Regular Regular Regular Pulse Strength [Apical] Normal Normal Normal Respiratory Rate 38 H 26 H 32 H Respiratory Effort / Characteristics Spontaneous Spontaneous Spontaneous Respiratory Depth Normal Normal Normal Respiratory Pattern Rapid/Shallow Rapid/Shallow Regular Blood Pressure Blood Pressure [Right Arm] 121/90 128/73 133/75 Blood Pressure Mean Blood Pressure Mean [Right Arm] 100 91 94 Blood Pressure Position [Right Arm] Semi-fowlers Semi-fowlers Semi-fowlers Pulse Oximetry 94 98 96 Oxygen Delivery Method Nasal Cannula Nasal Cannula Nasal Cannula Oxygen Flow Rate 2 3 3 Sepsis Recent Fever Within 48 Hours Sepsis New/Unexplained Change in Mental Status Sepsis Action Taken by Nursing CONSTITUTIONAL/VITAL SIGNS: Reviewed / noted above. GENERAL: Non-toxic in appearance. INTEGUMENTARY: Warm, dry, and [place]. HEAD: Normocephalic. EYES: without scleral icterus or trauma. ENT/OROPHARYNX: clear and moist. LYMPHADENOPATHY/NECK: Is supple without lymphadenopathy or meningismus. RESPIRATORY: Scattered wheezing bilaterally. Mild increased work of breathing. CARDIOVASCULAR: Regular rate and rhythm. GI/ABDOMEN: Soft and nontender. No organomegaly or pulsatile mass. Feeding tube and abdominal wall. EXTREMITIES: Warm and well perfused. BACK: No CVA tenderness. NEUROLOGICAL: Intact without focal deficits. PSYCHIATRIC: normal affect. MUSCULOSKELETAL: Normally developed with good muscle tone. TRIAGE NURSING DOCUMENTATION REVIEWED. Course Administered Medications Hydrocortisone (Hydrocortisone 10 Mg Tab) 20 mg PO QAM [facility] Stop: 03/11/21 08:59 Last Admin: 02/09/21 08:14 Dose: 20 mg Documented by: [id number] Discontinued Medications Albuterol (Albut/Ipratrop 3mg/0.5mg Neb 3 Ml Vial) 3 ml INH NOW STA Stop: 02/09/21 06:44 Last Admin: 02/09/21 07:01 Dose: 3 ml Documented by: [id number] Dexamethasone Sodium Phosphate (DexamethasonePf 10 Mg/Ml Vial) 10 mg IV NOW ONE Stop: 02/09/21 06:49 Last Admin: 02/09/21 07:08 Dose: 10 mg Documented by: [id number] Sodium Chloride (Nss 1000ml) 1,000 mls @ 999 mls/hr IV .Q1H1M ONE Stop: 02/09/21 07:54 Last Infusion: 02/09/21 09:13 Dose: 0 mls/hr Documented by: [id number] Admin: 02/09/21 07:03 Dose: 999 mls/hr Documented by: [id number] Cefepime HCl (Maxipime) 2,000 mg in 20 mls @ 5 mls/min IV NOW STA; Protocol Stop: 02/09/21 08:47 Last Admin: 02/09/21 08:51 Dose: 5 mls/min Documented by: [id number] Ioversol (Optiray 320 125ml) 120 ml IV ONCE ONE Stop: 02/09/21 07:19 Last Admin: 02/09/21 07:18 Dose: 120 ml Documented by: [id number] Ondansetron HCl (Ondansetron Inj 2 Mg/Ml 2 Ml Vial) 4 mg IV NOW STA Stop: 02/09/21 06:55 Last Admin: 02/09/21 07:07 Dose: Not Given Documented by: [id number] Tacrolimus (Tacrolimus 0.5 Mg Cap) 0.5 mg PO NOW STA Stop: 02/09/21 06:59 Last Admin: 02/09/21 08:14 Dose: 0.5 mg Documented by: [id number] Medical Decision Making Differential Diagnosis The differential was considered includes acute myocardial infarction, acute coronary syndrome, myocarditis, pericarditis, pericardial effusions /tamponad, esophageal perforation, pulmonary embolism, pneumonia, pneumothorax, cardiomyopathy, congestive heart, anemia , COPD/asthma exacerbation. Medical Records Attestation: I reviewed the patient's medical records. Home Medications Current Medication List: was personally reviewed by me Laboratory Data Attestation: I reviewed the patient's lab results. Result diagrams: 02/09/21 06:25 02/09/21 06:25 Lab Results 02/09/21 02/09/21 02/09/21 Range/Units 06:25 06:25 06:25 WBC 1.39 L (4.8-10.8) K/uL RBC 3.10 L (4.2-5.4) M/uL Hgb 9.9 L (12.0-16.0) g/dL Hct 30.5 L (37-47) % MCV 98.4 (80-100) fL MCH 31.9 (25-34) pg MCHC 32.5 (32-36) g/dL RDW Std Deviation 54.4 H (36.4-46.3) fL RDW Coeff of Janina 15.3 H (11.5-14.5) % Plt Count 233 (130-400) K/uL MPV 9.9 (7.4-10.4) fL Neutrophils % (Manual) 66.9 % Lymphocytes % (Manual) 13.9 % Monocytes % (Manual) 12.2 % Eosinophils % (Manual) 2.6 % Basophils % (Manual) 0.9 % Metamyelocytes % (Man) 0.9 % Myelocytes % (Man) 2.6 % Neutrophils # (Manual) 0.93 L (1.4-6.5) K/uL Total Absolute Neuts 0.93 L* (1.4-6.5) K/uL Lymphocytes # (Manual) 0.19 L (1.2-3.4) K/uL Total Abs Lymphocytes 0.19 L (1.2-3.4) K/uL Monocytes # (Manual) 0.17 (0.11-0.59) K/uL Eosinophils # (Manual) 0.04 (0-0.5) K/uL Basophils # (Manual) 0.01 (0-0.2) K/uL Metamyelocytes # (Man) 0.01 H (0-0) K/uL Myelocytes # (Manual) 0.04 H (0-0) K/uL PT 10.3 (9.0-12.0) Seconds INR 1.0 (0.9-1.1) APTT 27.2 (21.0-31.0) Seconds PTT Ratio 1.0 Sodium 134 L (136-145) mmol/L Potassium 3.8 (3.5-5.1) mmol/L Chloride 98 (98-107) mmol/L Carbon Dioxide 28 (21-32) mmol/L Anion Gap 8.0 (3-11) BUN 42 H (7-18) mg/dl Creatinine 1.32 H (0.6-1.2) mg/dl Est Cr Clr Drug Dosing 38.2 ml/min Est GFR ( Amer) 50.0 ml/min Est GFR (Non-Af Amer) 43.1 ml/min BUN/Creatinine Ratio 31.5 H (10-20) Glucose 188 H (70-99) mg/dl Calcium 9.5 (8.5-10.1) mg/dl Magnesium 2.1 (1.8-2.4) mg/dl Total Bilirubin 0.6 (0.2-1) mg/dl AST 21 (15-37) U/L ALT 21 (12-78) U/L Alkaline Phosphatase 94 (45-117) U/L Troponin I < 0.015 (0-0.045) ng/ml NT-Pro-B Natriuret Pep 1046 H (0-900) pg/ml Total Protein 7.2 (6.4-8.2) gm/dl Albumin 3.0 L (3.4-5.0) gm/dl Globulin 4.2 H (2.5-4.0) gm/dl Albumin/Globulin Ratio 0.7 L (0.9-2) COVID-19 Eval Order 02/09/21 Range/Units 09:08 WBC (4.8-10.8) K/uL RBC (4.2-5.4) M/uL Hgb (12.0-16.0) g/dL Hct (37-47) % MCV (80-100) fL MCH (25-34) pg MCHC (32-36) g/dL RDW Std Deviation (36.4-46.3) fL RDW Coeff of Janina (11.5-14.5) % Plt Count (130-400) K/uL MPV (7.4-10.4) fL Neutrophils % (Manual) % Lymphocytes % (Manual) % Monocytes % (Manual) % Eosinophils % (Manual) % Basophils % (Manual) % Metamyelocytes % (Man) % Myelocytes % (Man) % Neutrophils # (Manual) (1.4-6.5) K/uL Total Absolute Neuts (1.4-6.5) K/uL Lymphocytes # (Manual) (1.2-3.4) K/uL Total Abs Lymphocytes (1.2-3.4) K/uL Monocytes # (Manual) (0.11-0.59) K/uL Eosinophils # (Manual) (0-0.5) K/uL Basophils # (Manual) (0-0.2) K/uL Metamyelocytes # (Man) (0-0) K/uL Myelocytes # (Manual) (0-0) K/uL PT (9.0-12.0) Seconds INR (0.9-1.1) APTT (21.0-31.0) Seconds PTT Ratio Sodium (136-145) mmol/L Potassium (3.5-5.1) mmol/L Chloride (98-107) mmol/L Carbon Dioxide (21-32) mmol/L Anion Gap (3-11) BUN (7-18) mg/dl Creatinine (0.6-1.2) mg/dl Est Cr Clr Drug Dosing ml/min Est GFR ( Amer) ml/min Est GFR (Non-Af Amer) ml/min BUN/Creatinine Ratio (10-20) Glucose (70-99) mg/dl Calcium (8.5-10.1) mg/dl Magnesium (1.8-2.4) mg/dl Total Bilirubin (0.2-1) mg/dl AST (15-37) U/L ALT (12-78) U/L Alkaline Phosphatase (45-117) U/L Troponin I (0-0.045) ng/ml NT-Pro-B Natriuret Pep (0-900) pg/ml Total Protein (6.4-8.2) gm/dl Albumin (3.4-5.0) gm/dl Globulin (2.5-4.0) gm/dl Albumin/Globulin Ratio (0.9-2) COVID-19 Eval Order Covid19 at [facility] Imaging Data Radiologist's Impression: Chest X-Ray 02/09/21 06:24 XR chest 1V portable HISTORY: 60 years-old Female hypoxia COMPARISON: Chest radiograph 10/21/2020, CTA chest 10/12/2018. TECHNIQUE: Portable AP view of the chest FINDINGS: Cardiac silhouette is mildly enlarged. Prior median sternotomy with surgical clips of the mediastinum. A stent device projects over the right mainstem bronchus. Surgical suture material the left lung base. Emphysema with chronic interstitial coarsening. Unchanged mild bibasilar densities. No pneumothorax or large pleural effusion. Healed chronic bilateral rib fractures. Degenerative changes of the shoulders and spine. IMPRESSION: 1. Emphysema with chronic interstitial coarsening. 2. Chronic bibasilar opacities suggestive of atelectasis/scarring. ACT 112: Negative or not required by law. The above report was generated using voice recognition software. It may contain grammatical, syntax or spelling errors. Electronically signed by: Andrés Hood M.D. 02/09/2021 7:14 AM Chest CTA 02/09/21 06:43 CT ANGIOGRAM OF THE CHEST CLINICAL HISTORY: Dyspnea. Vomiting. Cough and wheezing. History of lung transplantation. COMPARISON STUDY: Chest x-ray dated 02/09/2021. Chest CT dated 05/14/2019. TECHNIQUE: Following the IV administration of 120 cc of Optiray 320, CT angiogram of the chest was performed from the upper abdomen to the thoracic inlet utilizing the pulmonary embolus protocol. Images are reviewed in the axial, sagittal, and coronal planes. 3-D MIPS images are created and assessed. IV contrast was administered without complication. A dose lowering technique was utilized adhering to the principles of ALARA. CT DOSE: 240.28 mGy.cm FINDINGS: Thyroid: Mildly enlarged and heterogeneous. Thoracic aorta: The thoracic aorta is normal in caliber and demonstrates 4- vessel variant arch anatomy. No dissection is seen. Pulmonary vasculature: The pulmonary trunk is markedly dilated, measuring 4.3 cm in diameter. This suggests pulmonary artery hypertension. There are no filling defects identified in main, lobar, or segmental pulmonary branches to suggest pulmonary embolus. Heart: The heart is enlarged and without pericardial effusion. There are coronary artery calcifications. Lungs and pleural spaces: Postoperative changes consistent with bilateral lung transplantation. Post resection change is seen in the lingula. A stent is noted in the bronchus intermedius. There is focal narrowing of the bronchus intermedius at this level. The airway remains patent. Bronchiectasis is seen throughout both lungs, greatest in the lower lobes and there is diffuse peribronchial thickening. Tree-in-bud airspace opacities and groundglass consolidation is seen throughout both lungs, greatest in the lower lobes. There is no lobar consolidation. Trace pleural effusions are seen bilaterally. The trachea is clear. Mediastinum: Enlarged prevascular nodes measure up to 1.4 cm in short axis. The enlarged lymph node at the esophageal hiatus on image #32 measures 1.0 cm in short axis. Esperanza: Clear. Axillae: There is no axillary lymphadenopathy. Upper abdomen: Partially visualized upper abdominal viscera is within normal limits. Skeletal structures: The skeletal structures are osteopenic. Mild degenerative change is noted in the shoulders and thoracic spine. There is chronic pos ttraumatic deformity of the lower sternum. Chronic postoperative deformity is also seen in several bilateral ribs. No lytic or blastic bony lesions are identified. IMPRESSION: 1. There is no evidence of pulmonary embolus in the main, lobar, or segmental pulmonary arteries. 2. Postoperative change is consistent with the reported history of bilateral lung transplantation. 3. Cardiomegaly with evidence of pulmonary artery hypertension. 4. A stent is noted within the right mainstem bronchus. The airway is focally narrowed at this level but remains patent. 5. There is mild diffuse bronchiectasis, extensive peribronchial thickening, with diffuse tree-in-bud nodularity and groundglass opacities which is greatest at the lung bases. This could represent an acute infectious/inflammatory pneumonitis/bronchiolitis. Given the history of lung transplantation, post transplant bronchiolitis obliterans is not excluded. Follow-up with the patient's carton lettering machine operator is recommended. 6. Mildly enlarged lymph nodes are nonspecific and likely related to chronic lung disease. 7. Trace pleural effusions. 8. Additional findings as above. ACT 112: Negative or not required by law. Electronically signed by: Pieter Briggs M.D. 02/09/2021 8:33 AM ECG Data Attestation: I personally reviewed and interpreted this ECG as follows: Additional Comments: Twelve-lead EKG: Per my interpretation reveals a sinus tach at a rate of 118. No ST elevation. No PVCs. Normal QTC. MDM Narrative 60-year-old female presents with nausea, vomiting and a nonproductive cough for months. Details listed above. Exam reveals some wheezing and some mild increased work of breathing. Her pulse ox was noted to be 86% on room air. She states that typically she does not use oxygen during the day but has been using oxygen for the past week or 2. She has a double lung transplant with a feeding tube. The patient does have some scattered wheezes and some mild increased work of breathing on exam. Twelve-lead EKG shows a sinus tach at a rate of 118. Chest x-ray was negative for acute disease. CT scan of chest reveals findings suggesting an acute infectious process in the lung bases. The white blood cell count is 1.39. ANC is 0.93. BUN is 42 and creatinine is 1.3. Troponin was ne gative. BNP is 1046. The patient was initially treated with her morning dose of hydrocortisone and tacrolimus. She was also given a DuoNeb treatment for an hour, IV Decadron, IV fluids and IV Zofran. She was also administered IV cefepime. She will be seen by the hospitalist for further inpatient evaluation and care. Impression & Plan Cough, Bilateral wheezing, Nausea & vomiting, Pneumonia, Hypoxia Discharge Plan Visit Data Chief Complaint: Vomiting Stated Complaint: VOMITING,SOB,WHEEZING,COUGH ED Provider: Nolan Rdz Discharge Problem: Cough, Bilateral wheezing, Nausea & vomiting, Pneumonia, Hypoxia Forms Stand Alone Forms: [facility] Prescriptions Prescriptions: No Action pantoprazole [Protonix] 40 mg tablet,delayed release (DR/EC) 40 mg PO HS RF: 0 valganciclovir [Valcyte] 450 mg Tablet 450 mg PO Q2D RF: 0 tacrolimus [Prograf] 5 mg Capsule 5 mg PO Q12H RF: 0 Domperidone 20 mg PO QID RF: 0 sulfamethoxazole-trimethoprim [Bactrim] 400-80 mg tablet 1 tab PO 2XWK RF: 0 prochlorperazine maleate [Compazine] 10 mg tablet 10 mg PO BID RF: 0 hydrocortisone [Cortef] 20 mg tablet See Rx Instructions .ROUTE .COMPLEX RF: 0 metoprolol tartrate 25 mg tablet 37.5 mg PO BID RF: 0 Referrals Referrals: Jeferson Vinson MD [Primary Care Provider] - Discharge Problem: Pneumonia Qualifiers: Pneumonia type: due to unspecified organism Laterality: bilateral Lung location: lower lobe of lung Qualified Code(s): J18.9 - Pneumonia, unspecified organism
[2021-02-09] MEDS ORDERED: ONDANSETRON INJ 2 MG/ML 2 ML VIAL IV STA (06:54)
[2021-02-09] MEDS ORDERED: SODIUM CHLORIDE 0.9% 1000ML 1,000 ML IV ONE (06:54)
[2021-02-09] MEDS ORDERED: TACROLIMUS 0.5 MG CAP PO STA (06:58)
--- NOTE | 2021-02-09 07:16 | XRay Report ---
XR chest 1V portable HISTORY: 60 years-old Female hypoxia COMPARISON: Chest radiograph 10/21/2020, CTA chest 10/12/2018. TECHNIQUE: Portable AP view of the chest FINDINGS: Cardiac silhouette is mildly enlarged. Prior median sternotomy with surgical clips of the mediastinum . A stent device projects over the right mainstem bronchus. Surgical suture material the left lung ba se. Emphysema with chronic interstitial coarsening. Unchanged mild bibasilar densities. No pneumothor ax or large pleural effusion. Healed chronic bilateral rib fractures. Degenerative changes of the berhane ulders and spine. IMPRESSION: 1. Emphysema with chronic interstitial coarsening. 2. Chronic bibasilar opacities suggestive of atelectasis/scarring. ACT 112: Negative or not required by law. The above report was generated using voice recognition software. It may contain grammatical, syntax o r spelling errors. Electronically signed by: Andrés Hood M.D. 02/09/2021 7:14 AM
[2021-02-09] MEDS ORDERED: OPTIRAY 320 125ml IV ONE (07:18)
[2021-02-09 07:19] LABS: Hematocrit (blood only) 30.5 % (37-47); Hemoglobin 9.9 g/dL (12.0-16.0); Mean Corpuscular Hemoglobin 31.9 pg (25-34); Mean Corpuscular Hgb Conc 32.5 g/dL (32-36); Mean Corpuscular Volume 98.4 fL (80-100); Mean Platelet Volume 9.9 fL (7.4-10.4); Platelet Count 233 K/uL (130-400); RDW Coefficient of Variation 15.3 % (11.5-14.5); RDW Standard Deviation 54.4 fL (36.4-46.3); White Blood Count 1.39 K/uL (4.8-10.8)
[2021-02-09 07:33] LABS: Partial Thromboplastin Time 27.2 Seconds (21.0-31.0); Prothrombin Time 10.3 Seconds (9.0-12.0)
[2021-02-09 07:37] LABS: Alanine Aminotransferase 21 U/L (12-78); Aspartate Aminotransferase 21 U/L (15-37); BUN Creatinine Ratio 31.5 (10-20); Blood Urea Nitrogen 42 mg/dl (7-18); Calcium 9.5 mg/dl (8.5-10.1); Carbon Dioxide 28 mmol/L (21-32); Chloride 98 mmol/L (98-107); Creatinine Clr Calc Pharmacy 38.2 ml/min; Est GFR (Non-African American) 43.1 ml/min; Glucose 188 mg/dl (70-99); Magnesium 2.1 mg/dl (1.8-2.4); Potassium 3.8 mmol/L (3.5-5.1); Sodium 134 mmol/L (136-145)
[2021-02-09 07:43] LABS: Albumin Globulin Ratio 0.7 (0.9-2); Alkaline Phosphatase 94 U/L (45-117); Bilirubin,Total 0.6 mg/dl (0.2-1); Globulin 4.2 gm/dl (2.5-4.0); NT Pro B Type Natriuretic Pept 1046 pg/ml (0-900); Total Protein 7.2 gm/dl (6.4-8.2); Troponin I < 0.015 ng/ml (0-0.045)
[2021-02-09 08:18] LABS: ALC (manual) 0.19 K/uL (1.2-3.4); ANC (manual) 0.93 K/uL (1.4-6.5); Basophils # (manual) 0.01 K/uL (0-0.2); Basophils % (manual) 0.9 %; Eosinophils # (manual) 0.04 K/uL (0-0.5); Eosinophils % (manual) 2.6 %; Lymphocytes # (manual) 0.19 K/uL (1.2-3.4); Lymphocytes % (manual) 13.9 %; Metamyelocytes # (manual) 0.01 K/uL (0-0); Metamyelocytes % (manual) 0.9 %; Monocytes # (manual) 0.17 K/uL (0.11-0.59); Monocytes % (manual) 12.2 %; Myelocytes # (manual) 0.04 K/uL (0-0); Myelocytes % (manual) 2.6 %; Neutrophils # (manual) 0.93 K/uL (1.4-6.5); Neutrophils % (manual) 66.9 %
--- NOTE | 2021-02-09 08:34 | CT Scan Report ---
CT ANGIOGRAM OF THE CHEST CLINICAL HISTORY: Dyspnea. Vomiting. Cough and wheezing. History of lung transplantation. COMPARISON STUDY: Chest x-ray dated 02/09/2021. Chest CT dated 05/14/2019. TECHNIQUE: Following the IV administration of 120 cc of Optiray 320, CT angiogram of the chest was pe rformed from the upper abdomen to the thoracic inlet utilizing the pulmonary embolus protocol. Images are reviewed in the axial, sagittal, and coronal planes. 3-D MIPS images are created and assessed. I V contrast was administered without complication. A dose lowering technique was utilized adhering to the principles of ALARA. CT DOSE: 240.28 mGy.cm FINDINGS: Thyroid: Mildly enlarged and heterogeneous. Thoracic aorta: The thoracic aorta is normal in caliber and demonstrates 4-vessel variant arch anatom y. No dissection is seen. Pulmonary vasculature: The pulmonary trunk is markedly dilated, measuring 4.3 cm in diameter. This sen ggests pulmonary artery hypertension. There are no filling defects identified in main, lobar, or segm ental pulmonary branches to suggest pulmonary embolus. Heart: The heart is enlarged and without pericardial effusion. There are coronary artery calcificatio ns. Lungs and pleural spaces: Postoperative changes consistent with bilateral lung transplantation. Post resection change is seen in the lingula. A stent is noted in the bronchus intermedius. There is focal narrowing of the bronchus intermedius at this level. The airway remains patent. Bronchiectasis is se en throughout both lungs, greatest in the lower lobes and there is diffuse peribronchial thickening. Tree-in-bud airspace opacities and groundglass consolidation is seen throughout both lungs, greatest in the lower lobes. There is no lobar consolidation. Trace pleural effusions are seen bilaterally. Th e trachea is clear. Mediastinum: Enlarged prevascular nodes measure up to 1.4 cm in short axis. The enlarged lymph node a t the esophageal hiatus on image #32 measures 1.0 cm in short axis. Esperanza: Clear. Axillae: There is no axillary lymphadenopathy. Upper abdomen: Partially visualized upper abdominal viscera is within normal limits. Skeletal structures: The skeletal structures are osteopenic. Mild degenerative change is noted in the shoulders and thoracic spine. There is chronic posttraumatic deformity of the lower sternum. Chronic postoperative deformity is also seen in several bilateral ribs. No lytic or blastic bony lesions are identified. IMPRESSION: 1. There is no evidence of pulmonary embolus in the main, lobar, or segmental pulmonary arteries. 2. Postoperative change is consistent with the reported history of bilateral lung transplantation. 3. Cardiomegaly with evidence of pulmonary artery hypertension. 4. A stent is noted within the right mainstem bronchus. The airway is focally narrowed at this level but remains patent. 5. There is mild diffuse bronchiectasis, extensive peribronchial thickening, with diffuse tree-in-bud nodularity and groundglass opacities which is greatest at the lung bases. This could represent an ac shobha infectious/inflammatory pneumonitis/bronchiolitis. Given the history of lung transplantation, pos t transplant bronchiolitis obliterans is not excluded. Follow-up with the patient's timber management assistant is recommended. 6. Mildly enlarged lymph nodes are nonspecific and likely related to chronic lung disease. 7. Trace pleural effusions. 8. Additional findings as above. ACT 112: Negative or not required by law. Electronically signed by: Pieter Briggs M.D. 02/09/2021 8:33 AM
[2021-02-09] MEDS ORDERED: CEFEPIME 2,000 MG/20 ML VIAL IV STA (08:44)
[2021-02-09] MEDS ORDERED: HYDROCORTISONE 10 MG TAB PO SCH ×2 (09:00→10:30)
--- NOTE | 2021-02-09 09:46 | History & Physical Report ---
Date of Service February 09, 2021 Assessment & Plan (1) Acute on chronic respiratory failure with hypoxemia: Plan: - Admit to PCU - Hypoxic with O2 at 86% on arrival to the ER, improved to 94% on 2 L, wears baseline of 1.5 at bedtime, and throughout the day - Continue IV cefepime and will add Vanc - Negative COVID-19 - Neg procal - Follow blood cultures - CTA chest reviewed - possible pna? - IV nebs, prednisone 50 mg daily, hold home hydrocortisone, given dexamethasone in the ER. -Consult pulmonology, follows with [facility] status post transplant (2) Lung transplant status, bilateral: Plan: - Will need to monitor tacrolimus level, currently on 5.5 mg BID, goal level 10- 12 - Cont valganciclovir 450 mg every 2 days, cont azathioprine 100 mg daily, inhaled liposomal amphotericin weekly (Monday) - Antibiotics as above - hold Bactrim SS every Mon/Th, hold hydrocortisone 20 mg QAM and 10 Q lunch and dinner time -Known RUL/RBI stenosis requiring dilation and stenting by Dr. Haley: Continued inhaled steroid given airway stenosis -Patient was recently seen at [facility], pulmonology for nausea and vomiting, failure to thrive s/p PEG J transplant and initiation of tube feeds - she was experiment ing with different timing of her medications which has somewhat improved nausea and vomiting. (3) Chronic leukopenia: (4) Neutropenia: Plan: - Possible lyme or anaplasmosis - check labs - No known hx of tick bite - Monitor with cbc plus diff daily - neutropenia is new (5) Nausea & vomiting: Plan: -Secondary to delayed gastric emptying, aggravated by coughing with airway stenosis, was previously on Reglan but switch to domperidone -PEG-J nocturnal tube feeds-was discussed to remove this if nausea improved and was able to tolerate p.o. diet -Continue medication spacing, as this has given some improvement recently -Check c diff, hx of such. 1 day diarrhea. (6) Pulmonary hypertension: Plan: -Continue metoprolol tartrate 37.5 twice daily -Not on anticoagulation (7) CKD (chronic kidney disease), stage III: Plan: -Creatinine baseline of 1.4-1.9, creatinine currently 1.32, BUN 42 (8) Paroxysmal A-fib: Plan: - Rate control with BB as above, not on anticoagulation - pt reports no hx of bleed or other contraindication that she is aware of. This occurred after her surgery for bilateral lung transplants and then again during her prolonged hospital stay afterwards ( 5 months) (9) Hypercholesterolemia: Plan: - Hs of such, not on statin DVT ppx: - teds, scds, heparin subcu CODE: Full code Dispo: From home, likely to remain in the hospital x 1-2 days Plan: Addendum by Dr. Hinojosa CAP with hx of IV abx use within 90 days & Hypoxic respiratory failure: will empirically treat the pt with vanc and cefepime - even though procal is normal: due to pt being on immunosuppression treatment will continue the abx - Pulm consult SOB with wheezing: duoneb q4 hrs with prednisone 50mg daily (will hold home hydrocortisone dose) Worsening Vomiting with nausea: due to hx of PEG J placement will get CT abd/pelvis with oral contrast ---- nutrition consult Chronic leukopenia with Neutropenia: new neutropenia --- will get lyme and anaplasmosis --- trend CBC History of Present Illness Primary Care Provider: Jeferson Vinson MD This is a 60 yo F with PMHx of bilateral lung transplant on immunosuppression ([facility] 11/11/2019), HLD, paroxysmal atrial fibrillation, COPD, pulmonary emphysema, CKD stage III, HLD, anemia who presents with several complaints today including posttussive vomiting, wheezing, weakness, fatigue, decreased appetite over the past 1 week. Her wheezing is loud and has used home nebulizers within the past week, she also reports using 1.5 L O2 at bedtime at baseline however has needed to use it throughout the day for the past week. In December, she underwent bronchoscopy where they found a virus in her lung, and required treatment IV antibiotic in that she thought caused her nausea and vomiting and therefore cut the treatment course short by 2 days. Since that p oint time she does not feel her nausea or vomiting has really improved. She takes Nepro tube feeds daily for 12 hours overnight, and reports she thinks that her tube has been functioning correctly however her does the majority of flushes/administration of tube feeds. She feels that her nausea is worse in the morning when she wakes up after the overnight feedings. She has poor appetite a nd has been consuming only small amount of food orally. She is able to tolerate her meds po, but missed morning doses due to feeling unwell. Patient also reports having worsening diarrhea over the last 24 hours, she has had C. difficile before. She recently saw GI at [facility] as an outpatient, who she feels did not have much to offer. He denies any recent fevers, chills or sweats. Patient also notes that she is hardly outside, and denies any known recent tick bites. She does not have any pets that are in and outside of her home. Allergies Allergy/AdvReac Type Severity Reaction Status Date / Time glimepiride AdvReac Severe Fainting Verified 02/09/21 08:16 Home Medications Medication Instructions Recorded Confirmed Type pantoprazole 40 mg tablet,delayed 40 mg PO HS 01/24/20 02/09/21 History release (Protonix) tacrolimus 5 mg capsule, 5 mg PO Q12H 01/24/20 02/09/21 History immediate-release (Prograf) valganciclovir 450 mg tablet 450 mg PO Q2D 01/24/20 02/09/21 History (Valcyte) hydrocortisone 20 mg tablet See Rx Instructions .ROUTE .COMPLEX 09/08/20 02/09/21 History (Cortef) metoprolol tartrate 25 mg tablet 37.5 mg PO BID 09/08/20 02/09/21 History prochlorperazine maleate 10 mg 10 mg PO BID 09/08/20 02/09/21 History tablet (Compazine) sulfamethoxazole 400 1 tab PO 2XWK 09/08/20 02/09/21 History mg-trimethoprim 80 mg tablet (Bactrim) Domperidone 20 mg PO QID 10/21/20 02/09/21 History amitriptyline 50 mg tablet 50 mg PO QS 02/09/21 02/09/21 History azathioprine 50 mg tablet 50 mg PO DAILY 02/09/21 02/09/21 History azithromycin 250 mg tablet 250 mg PO DAILY 02/09/21 02/09/21 History cetirizine 5 mg tablet 5 mg PO DAILY 02/09/21 02/09/21 History fludrocortisone 0.1 mg tablet 0.1 mg PO DAILY 02/09/21 02/09/21 History fluticasone furoate 200 1 inh INHALATION DAILY 02/09/21 02/09/21 History mcg/actuation blister powder for inhalation (Arnuity Ellipta) tacrolimus 1 mg capsule, 0.5 mg PO Q12 02/09/21 02/09/21 History immediate-release Past Med/Surg History Medical History (Updated 02/09/21 @ 12:11 by Fredy Hinojosa MD) ASCUS of cervix with negative high risk HPV Cholesteatoma of both middle ears Chronic mastoiditis Chronic obstructive pulmonary disease Chronic respiratory failure with hypoxia and hypercapnia Chronic tympanomastoiditis Encounter for mastoidectomy cavity debridement History of actinic keratosis Hypercholesterolemia LGSIL on Pap smear of cervix Osteoporosis Paroxysmal A-fib Postmenopausal Pulmonary emphysema Pulmonary hypertension Surgical History History of colposcopy History of ear surgery Hx of colonoscopy Hx of tonsillectomy Lung transplant status, bilateral 11/11/2019 [facility] S/P cardiac cath S/P dilation and curettage S/P wisdom tooth extraction Family History Mother Adenocarcinoma of lung Osteoporosis Rheumatoid arthritis Lung cancer Myocardial infarction Aunt Breast cancer maternal aunt Grandfather (Paternal) Colorectal cancer Father Lung cancer Denies family history of Ovarian cancer Social History (Updated 02/09/21 @ 06:19 by Carrol Harrison DO) Smoking Status: Former smoker Tobacco Type: Cigarettes Cigarettes Per Day: 1 ppd for 23 years; Smoking End Date: 2007; Second Hand Exposure: No; Do You Dip or Chew Tobacco: No; Tobacco Cessation Education Requested by Patient: No Hx Alcohol Use: Yes Alcohol type: beer Hx Substance Use: No Preferred Language: Slovak Communication Ability: Effective Precision Filer Hand Required: No Beliefs That Will Affect Care: None marital status: Current Living Situation: Spouse Other Information That Helps Us Care for You: No Feels Safe at Home: Yes Safety Concerns: Feels Safe At This Time Assistive Devices: Cane, Glasses, Oxygen - Continuous and Walker Review of Systems Review of Systems: Constitutional: No fever, sweats or chills Eyes: No diplopia, no worsening or blurred vision ENT: normal hearing, no trouble swallowing, poor appetite Respiratory: + cough, + wheeze, + increased O2 requirement, no sputum, + dyspnea at rest and on exertion Cardiovascular: No chest pain, +tightness, no recent palpitations Abdomen: No pain, nausea, vomiting, + diarrhea, hx of 1 week of constipation Musculoskeletal: No joint pain, calf pain, swelling Neurologic: No weakness, numbness/tingling, or balance problems Psychiatric: No anxiety or depression Skin: No rash or itch Physical Exam Physical Exam: General: awake, alert, no apparent distress Head: Normocephalic, atraumatic ENT: PERRL, EOMI, no pharyngeal exudate, mucous membranes moist Chest: On 2 L via NC, Coarse breath sounds and loud audible wheeze heard throughout, diminished breath sounds in the RUL. Cardiac: sinus tach with HR in 90s-100s, no murmur, no JVD, normal peripheral pulses, good capillary refill Abdominal: NABS x 4 quadrants, soft,+ slightly distended, nontender to palpation, no rebound or guarding Extremities: Normal inspection, no peripheral edema or erythema, calfs nontender to palpation Psych: Normal mood and affect Neuro: AAO x 3, strength intact bilaterally and rated 5/5, no motor deficits, speech is clear, no peripheral sensory deficits Results & Data Results & Data ([facility]) Vital Signs (Past 12 Hours) Vital Signs Temp Pulse Pulse Resp BP BP Pulse Ox 02/09/21 09:00 102 H 32 H 133/75 96 02/09/21 08:44 105 H 26 H 128/73 98 02/09/21 07:42 131 H 38 H 121/90 94 02/09/21 07:01 110 H 25 H 94 02/09/21 06:06 36.7 C 122 H 32 H 129/70 86 L 02/09/21 06:05 135 H 40 H 141/76 H 95 Diagnostic Findings Chest X-Ray 02/09/21 06:24 XR chest 1V portable HISTORY: 60 years-old Female hypoxia COMPARISON: Chest radiograph 10/21/2020, CTA chest 10/12/2018. TECHNIQUE: Portable AP view of the chest FINDINGS: Cardiac silhouette is mildly enlarged. Prior median sternotomy with surgical clips of the mediastinum. A stent device projects over the right mainstem bronchus. Surgical suture material the left lung base. Emphysema with chronic interstitial coarsening. Unchanged mild bibasilar densities. No pneumothorax or large pleural effusion. Healed chronic bilateral rib fractures. Degenerative changes of the shoulders and spine. IMPRESSION: 1. Emphysema with chronic interstitial coarsening. 2. Chronic bibasilar opacities suggestive of atelectasis/scarring. ACT 112: Negative or not required by law. The above report was generated using voice recognition software. It may contain grammatical, syntax or spelling errors. Electronically signed by: Andrés Hood M.D. 02/09/2021 7:14 AM Chest CTA 02/09/21 06:43 CT ANGIOGRAM OF THE CHEST CLINICAL HISTORY: Dyspnea. Vomiting. Cough and wheezing. History of lung transplantation. COMPARISON STUDY: Chest x-ray dated 02/09/2021. Chest CT dated 05/14/2019. TECHNIQUE: Following the IV administration of 120 cc of Optiray 320, CT angiogram of the chest was performed from the upper abdomen to the thoracic inlet utilizing the pulmonary embolus protocol. Images are reviewed in the axial, sagittal, and coronal planes. 3-D MIPS images are created and assessed. IV contrast was administered without complication. A dose lowering technique was utilized adhering to the principles of ALARA. CT DOSE: 240.28 mGy.cm FINDINGS: Thyroid: Mildly enlarged and heterogeneous. Thoracic aorta: The thoracic aorta is normal in caliber and demonstrates 4- vessel variant arch anatomy. No dissection is seen. Pulmonary vasculature: The pulmonary trunk is markedly dilated, measuring 4.3 cm in diameter. This suggests pulmonary artery hypertension. There are no filling defects identified in main, lobar, or segmental pulmonary branches to suggest pulmonary embolus. Heart: The heart is enlarged and without pericardial effusion. There are marie nary artery calcifications. Lungs and pleural spaces: Postoperative changes consistent with bilateral lung transplantation. Post resection change is seen in the lingula. A stent is noted in the bronchus intermedius. There is focal narrowing of the bronchus intermedius at this level. The airway remains patent. Bronchiectasis is seen throughout both lungs, greatest in the lower lobes and there is diffuse peribronchial thickening. Tree-in-bud airspace opacities and groundglass consolidation is seen throughout both lungs, greatest in the lower lobes. There is no lobar consolidation. Trace pleural effusions are seen bilaterally. The trachea is clear. Mediastinum: Enlarged prevascular nodes measure up to 1.4 cm in short axis. The enlarged lymph node at the esophageal hiatus on image #32 measures 1.0 cm in short axis. Esperanza: Clear. Axillae: There is no axillary lymphadenopathy. Upper abdomen: Partially visualized upper abdominal viscera is within normal limits. Skeletal structures: The skeletal structures are osteopenic. Mild degenerative change is noted in the shoulders and thoracic spine. There is chronic posttraumatic deformity of the lower sternum. Chronic postoperative deformity is also seen in several bilateral ribs. No lytic or blastic bony lesions are identified. IMPRESSION: 1. There is no evidence of pulmonary embolus in the main, lobar, or segmental pulmonary arteries. 2. Postoperative change is consistent with the reported history of bilateral lung transplantation. 3. Cardiomegaly with evidence of pulmonary artery hypertension. 4. A stent is noted within the right mainstem bronchus. The airway is focally narrowed at this level but remains patent. 5. There is mild diffuse bronchiectasis, extensive peribronchial thickening, with diffuse tree-in-bud nodularity and groundglass opacities which is greatest at the lung bases. This could represent an acute infectious/inflammatory pneumonitis/bronchiolitis. Given the history of lung transplantation, post transplant bronchiolitis obliterans is not excluded. Follow-up with the patient's energy auditor is recommended. 6. Mildly enlarged lymph nodes are nonspecific and likely related to chronic lung disease. 7. Trace pleural effusions. 8. Additional findings as above. ACT 112: Negative or not required by law. Electronically signed by: Pieter Briggs M.D. 02/09/2021 8:33 AM ECG Additional Comments: 09-FEB-2021 06:20:50 [facility]-EDSTAT ROUTINE RETRIEVAL Sinus tachycardia Possible Left atrial enlargement Borderline ECG When compared with ECG of 21-OCT-2020 10:47, No significant change was found 25mm/s 10mm/mV 150Hz 9.0.9 12SL 241 HD MYA: 12 Referred by: REFERRED SELF Unconfirmed Vent. rate 118 BPM ND interval 116 ms QRS duration 80 ms QT/QTc 328/459 ms Code Status & VTE Plan Code Status Full code-Discussed with the patient at bedside Supervising Physician Co-Signing Physician Notes CAP with hx of IV abx use within 90 days & Hypoxic respiratory failure: will empirically treat the pt with vanc and cefepime - even though procal is normal: due to pt being on immunosuppression treatment will continue the abx - Pulm consult SOB with wheezing: duoneb q4 hrs with prednisone 50mg daily (will hold home hydrocortisone dose) Worsening Vomiting with nausea: due to hx of PEG J placement will get CT abd/pelvis with oral contrast Chronic leukopenia with Neutropenia: new neutropenia --- will get lyme and anaplasmosis --- trend CBC
[2021-02-09 11:10] LABS: Procalcitonin 0.48 ng/ml (0-0.5)
[2021-02-09 11:16] LABS: Lyme Ab IgG w/WB Rflx Negative (Negative); Lyme Ab IgM w/WB Rflx Negative (Negative)
[2021-02-09] MEDS ORDERED: VANCOMYCIN HCL 1,000 MG in SODIUM CHLORIDE 0.9% 500 ML IV SCH (11:40)
--- NOTE | 2021-02-09 13:52 | CT Scan Report ---
ABDOMEN AND PELVIS CT WITH ORAL CONTRAST CT DOSE: 268.93 mGy.cm HISTORY: Acute nausea and vomiting worsening vomiting with PEG J tube TECHNIQUE: Multiaxial CT images of the abdomen and pelvis were performed following the use of oral co ntrast. A dose lowering technique was utilized adhering to the principles of ALARA. COMPARISON STUDY: CTA chest of same day, CT abdomen pelvis 10/21/2020 FINDINGS: Trace pleural effusions. Bronchiectasis with bronchial wall thickening, groundglass densities with ce ntrilobular and tree-in-bud nodules. Subsegmental consolidation of the left lung base. No pneumatosis or pneumoperitoneum. Cardiomegaly. The spleen is enlarged measuring up to 14.8 cm in length. Unremar kable pancreas, and adrenal glands. Layering hyperdense material within the gallbladder lumen may rep resent sludge, cholelithiasis or vicarious excretion of contrast. Unremarkable liver. Probable cyst of the posterior interpolar left kidney, 10 mm. Contrast within the collecting systems from recent CTA of the chest obtained earlier today. No hydronephrosis. Unremarkable urinary bladder. The uterus and adnexa are within normal limits. Atherosclerosis of the aorta. No adenopathy. 7 mm pe riesophageal lymph node at the diaphragmatic hiatus is unchanged. Gastrostomy tube within the mid gas tric body appears to be in satisfactory positioning. No bowel obstruction or bowel wall thickening. C olonic diverticulosis without acute diverticulitis. No CT evidence of acute appendicitis. Tiny fat filled periumbilical hernia. Unremarkable soft tissues. There is no acute fracture. Healed c hronic bilateral anterior rib fractures. Healed chronic left sided sacral insufficiency fracture. Dem ineralized appearance of the bones. Transitional lumbosacral anatomy. Lumbar levoscoliosis. IMPRESSION: 1. No bowel obstruction or bowel wall thickening. 2. Satisfactory positioning of the percutaneous gastrostomy tube. 3. Trace pleural effusions with bronchiectasis and bibasilar pulmonary opacities suggestive of an inf ectious or inflammatory pneumonitis, better characterized on the CTA chest study obtained earlier tod ay. 4. Splenomegaly. 5. Colonic diverticulosis. 6. Additional findings as above. ACT 112: Negative or not required by law. The above report was generated using voice recognition software. It may contain grammatical, syntax o r spelling errors. Electronically signed by: Andrés Hood M.D. 02/09/2021 1:51 PM
[2021-02-09] MEDS ORDERED: FLUDROCORTISONE ACETATE 0.1 MG TAB PO SCH (14:00)
[2021-02-09] MEDS ORDERED: METOPROLOL TARTRATE 25 MG TAB PO SCH (14:00)
[2021-02-09] MEDS ORDERED: AZITHROMYCIN 250 MG TAB PO SCH (14:00)
[2021-02-09] MEDS ORDERED: ONDANSETRON INJ 2 MG/ML 2 ML VIAL IV PRN (14:01)
[2021-02-09] MEDS ORDERED: VANCOMYCIN CONSULT ACTIVE PRN (14:01)
[2021-02-09] MEDS ORDERED: ACETAMINOPHEN 325 MG TAB PO PRN (14:01)
[2021-02-09] MEDS ORDERED: PROCHLORPERAZINE MALEATE 10 MG TAB PO SCH (14:15)
[2021-02-09] MEDS ORDERED: FLUTICASONE FUROATE 200MCG 14 PUFFS/INHALER INH SCH (14:15)
[2021-02-09] MEDS ORDERED: CETIRIZINE HCL 10 MG TABLET PO SCH (14:15)
--- NOTE | 2021-02-09 14:20 | Pulmonary Consultation ---
Date of Consultation February 09, 2021 Assessment & Plan (1) Acute on chronic respiratory failure with hypoxemia: 60-year-old female who is approximately 1 year out post lung transplant presenting to the hospital due to shortness of breath. Chest CTA suggestive of bronchiectasis with tree-in-bud opacities. Differential is very broad and can include post transplantation lymphoproliferative disorder, chronic rejection, neakp-yenfqd-znlt disease, pulmonary toxicity from immunosup pressive agents, ongoing bronchiolitis obliterans syndrome and/or acute infection in an immunocompromised host. She will need bronchoscopy with BAL and possible transbronchial biopsies. I think she would be better suited at her transplant center at this time given the severity of her acute illness. This was discussed with the hospitalist. Transfer is being arranged. I am reluctant to start IV corticosteroids at this time without the advice of the transplant team. I would also hold on airway clearance therapy such as percussive therapy given the placement of her airway stent. Continue immunosuppressive therapy at the current dose. Agree with checking tacrolimus levels. Agree with broad-spectrum antibiotics and coverage for pseudomonal infection. Echocardiogram reviewed. No evidence of pulmonary hypertension. Elevated proBNP likely secondary to CKD stage III and hypoalbuminemia. Mild diastolic heart failure may be playing a role. Please make the patient n.p.o. and hold tube feeds at this time. Thank you for the consultation. We will continue to follow along with you. (2) Lung transplant status, bilateral: (3) Bronchiectasis following lung transplantation: History of Present Illness Reason for Consultation: Acute hypoxemic respiratory failure and infiltrates in a patient with a history of lung transplant Attending Physician: Fredy Hinojosa MD History of Present Illness 60-year-old female with a past medical history of double lung transplant on 11/11/2019 who presented to the hospital due to increasing shortness of breath and underwent a chest CTA yesterday which demonstrated bronchiectasis with bilateral tree-in-bud opacities. When she underwent her lung transplant at [facility] she had difficulty weaning off the ventilator requiring tracheostomy. She had recurrent pneumonia and airway stenosis which required dilation. She also had persistent acute rejection despite Solu-Medrol and thymoglobin. She has a bronchial stent in her right bronchus intermedius. Patient notes that prior to her lung transplantation she was on advanced therapies for pulmonary hypertension. Since lung transplant she has not been on therapies for pulmonary hypertension. I was able to review the pulmonology notes at [facility] from 12/22/2020. She is chronically on hydrocortisone 20 mg in the a.m. and 10 mg in the p.m. She is also on tacrolimus and azathioprine. She is also on Bactrim every Monday and . She takes valacyclovir 450 mg every 48 hours. She has a history of refractory gastro intestinal symptoms including nausea and vomiting. She underwent PEG tube placement. She describes that she has a follow-up visit scheduled with her [facility] transplant team in March. She notes that over the past few days she has had a cough along with nausea. Her cough is mostly productive. She denies any hemoptysis. She is not normally on oxygen during the daytime. She is currently on 3 L of supplemental oxygen in the hospital. She denies any fevers or chills. On admission labs she is leukopenic with a white cell count of 1390. She has anemia of chronic disease and her hemoglobin is currently 9.9. Mild hyponatremia present. She has CKD stage III with creatinine 1.32. proBNP elevated to 1046. Albumin low at 3.0. Procalcitonin 0.48. COVID-19 testing negative on admission. Abdominal/pelvis CT with evidence of splenomegaly. Trace bilateral effusions. Colonic diverticulosis. No acute findings. Chest CTA demonstrates postoperative changes. Stent noted in the bronchus intermedius. Diffuse bronchiectasis with tree-in-bud nodularity bilaterally. Mild mediastinal adenopathy. Allergies Allergy/AdvReac Type Severity Reaction Status Date / Time glimepiride AdvReac Severe Fainting Verified 02/09/21 08:16 Home Medications Medication Instructions Recorded Confirmed Type pantoprazole 40 mg tablet,delayed 40 mg PO HS 01/24/20 02/09/21 History release (Protonix) tacrolimus 5 mg capsule, 5 mg PO Q12H 01/24/20 02/09/21 History immediate-release (Prograf) valganciclovir 450 mg tablet 450 mg PO Q2D 01/24/20 02/09/21 History (Valcyte) hydrocortisone 20 mg tablet See Rx Instructions .ROUTE .COMPLEX 09/08/20 02/09/21 History (Cortef) metoprolol tartrate 25 mg tablet 37.5 mg PO BID 09/08/20 02/09/21 History prochlorperazine maleate 10 mg 10 mg PO BID 09/08/20 02/09/21 History tablet (Compazine) sulfamethoxazole 400 1 tab PO 2XWK 09/08/20 02/09/21 History mg-trimethoprim 80 mg tablet (Bactrim) Domperidone 20 mg PO QID 10/21/20 02/09/21 History amitriptyline 50 mg tablet 50 mg PO QS 02/09/21 02/09/21 History azathioprine 50 mg tablet 50 mg PO DAILY 02/09/21 02/09/21 History azithromycin 250 mg tablet 250 mg PO DAILY 02/09/21 02/09/21 History cetirizine 5 mg tablet 5 mg PO DAILY 02/09/21 02/09/21 History fludrocortisone 0.1 mg tablet 0.1 mg PO DAILY 02/09/21 02/09/21 History fluticasone furoate 200 1 inh INHALATION DAILY 02/09/21 02/09/21 History mcg/actuation blister powder for inhalation (Arnuity Ellipta) tacrolimus 1 mg capsule, 0.5 mg PO Q12 02/09/21 02/09/21 History immediate-release Patient History Medical History (Updated 02/09/21 @ 15:21 by Jasvir Melgar MD) ASCUS of cervix with negative high risk HPV Bronchiectasis following lung transplantation Cholesteatoma of both middle ears Chronic mastoiditis Chronic obstructive pulmonary disease Chronic respiratory failure with hypoxia and hypercapnia Chronic tympanomastoiditis Encounter for mastoidectomy cavity debridement History of actinic keratosis Hypercholesterolemia LGSIL on Pap smear of cervix Osteoporosis Paroxysmal A-fib Postmenopausal Pulmonary emphysema Pulmonary hypertension Surgical History History of colposcopy History of ear surgery Hx of colonoscopy Hx of tonsillectomy Lung transplant status, bilateral 11/11/2019 [facility] S/P cardiac cath S/P dilation and curettage S/P wisdom tooth extraction Family History Mother Adenocarcinoma of lung Osteoporosis Rheumatoid arthritis Lung cancer Myocardial infarction Aunt Breast cancer maternal aunt Grandfather (Paternal) Colorectal cancer Father Lung cancer Denies family history of Ovarian cancer Social History (Updated 02/09/21 @ 06:19 by Carrol Hunter, DO) Smoking Status: Former smoker Tobacco Type: Cigarettes Cigarettes Per Day: 1 ppd for 23 years; Smoking End Date: 2007; Second Hand Exposure: No; Do You Dip or Chew Tobacco: No; Tobacco Cessation Education Requested by Patient: No Hx Alcohol Use: Yes Alcohol type: beer Hx Substance Use: No Preferred Language: Greenlandic Communication Ability: Effective Infertility Nurse Required: No Beliefs That Will Affect Care: None marital status: Current Living Situation: Spouse Other Information That Helps Us Care for You: No Feels Safe at Home: Yes Safety Concerns: Feels Safe At This Time Assistive Devices: Cane, Glasses, Oxygen - Continuous and Walker Review of Systems Review of Systems: 03/18 point ROS negative unless noted elsewhere Physical Exam Physical Exam: Constitutional: Frail appearing female laying in bed in mild distress. She is wearing nasal cannula. Eyes: Pupils are equal round and reactive to light. Conjunctivae are normal. Anicteric sclera. Ears nose, mouth and throat: No obvious deformities. Neck: Prior tracheal stoma noted. Respiratory: Diffuse wheezes and rhonchi. Prolonged phase of exhalation. Tachypneic. Cardiovascular: Regular rate and rhythm. No murmurs. 1+ pitting edema. Gastrointestinal: Normal bowel sounds, soft, nontender and nondistended. No hepatosplenomegaly noted. Musculoskeletal: No cyanosis. Patient is able to move all extremities. Strength is 5 out of 5 in the upper and lower extremities. Skin: No rashes, warm dry and intact. Neurologic: No obvious focal neurological deficits seen. Psychiatric: Alert and oriented x3 with a euthymic affect. Results & Data Results & Data ([facility]) Vital Signs (Past 12 Hours) Vital Signs Temp Pulse Pulse Resp BP BP Pulse Ox 02/09/21 11:00 98.2 F 108 H 30 H 117/69 97 02/09/21 09:00 102 H 32 H 133/75 96 02/09/21 08:44 105 H 26 H 128/73 98 02/09/21 07:42 131 H 38 H 121/90 94 02/09/21 07:01 110 H 25 H 94 02/09/21 06:06 98.1 F 122 H 32 H 129/70 86 L 02/09/21 06:05 135 H 40 H 141/76 H 95 Vital signs, labs and imaging personally reviewed PG Care Time/CCT Total # of Minutes Spent Total Time Spent with Patient: Total time spent is greater than 50% in coordination of care (as documented) at patient's floor/unit and/or counseling patient: Coding Level of Care Code 94658 Inpt Consult Level 5 Diagnoses Acute on chronic respiratory failure with hypoxemia J96.21 Lung transplant status, bilateral Z94.2 Bronchiectasis following lung transplantation T86.812; J47.9
[2021-02-09] MEDS ORDERED: VANCOMYCIN HCL 1,250 MG in SODIUM CHLORIDE 0.9% 250 ML IV ONE (14:30)
[2021-02-09] MEDS ORDERED: azaTHIOprine 50 MG TAB PO SCH (14:30)
--- NOTE | 2021-02-09 15:16 | Pharmacy Report ---
Pharmacy Abx Initial Consult - Date of Service February 09, 2021 - Pharmacy Dosing Scope Date of Consult: 02/09/2021 Consultation requested by: Dr. Hinojosa Pharmacy is consulted to initiate Vancomycin IV dosing therapy, order appropriate labs and adjust drug dose/frequency. - Objective Height: 5 ft 4 in Weight: 60.6 kg Vital Signs (Past 12hrs): Vital Signs Temp Pulse Pulse Resp BP BP Pulse Ox 02/09/21 15:01 98 H 02/09/21 11:00 36.8 C 108 H 30 H 117/69 97 02/09/21 09:00 102 H 32 H 133/75 96 02/09/21 08:44 105 H 26 H 128/73 98 02/09/21 07:42 131 H 38 H 121/90 94 02/09/21 07:01 110 H 25 H 94 02/09/21 06:06 36.7 C 122 H 32 H 129/70 86 L 02/09/21 06:05 135 H 40 H 141/76 H 95 Lab Results (24hrs): Laboratory Tests (24 Hours) 02/09/21 02/09/21 02/09/21 06:25 06:25 06:25 WBC 1.39 L Creatinine 1.32 H Est Cr Clr Drug Dosing 38.2 Procalcitonin 0.48 Micro Results: 02/09/21 07:21 Aerobic Blood Culture - Pending Blood Anaerobic Blood Culture - Pending 02/09/21 07:21 Aerobic Blood Culture - Pending Blood Anaerobic Blood Culture - Pending - Risk Factors for Resistance * Immunocompromised- patient on therapy for lung transplant * Antimicrobial use within the last 90 days- patient on chronic bactrim ss 2 times a week, azithromycin 250mg daily, vangancyclovir 450mg q2days - Assessment & Plan Assessment 60 year old F admitted for acute respiratory failure with history of lung transplant Plan Vancomycin IV * Estimated PK Parameters: Roddy 0.036 hr-1, t1/2 19.25 hr * Loading dose: 1250 mg (20.6 mg/kg) * Maintenance dose: 1000 mg IV (16.5 mg/kg) every 24 hours * Goal trough level: 15 to 20 mcg/mL * Level will be obtained if medication continues beyond 48 hrs Cefepime 2 grams IV q12h (not consulted) Pharmacy will continue to follow and will adjust dose/frequency as necessary. Thank you.
[2021-02-09] MEDS: ALBUT/IPRATROP 3MG/0.5MG NEB 3 ML VIAL NEB SCH ×2 (15:19→19:00)
--- NOTE | 2021-02-09 17:06 | Communication Note ---
Date of Service: February 09, 2021 Spoke to [facility] Lung transplant team (Dr. Darwin Sharp) - she is okay with transfer: already spoke to [facility] transfer line ([phone]): they are in the process of finding a bed Dr. Sharp recommended respiratory panel, one dose of neupogen 300 mcg subq -pt had pseudomonas in prior broncho: therefore will continue vanc and cefepime
[2021-02-09] MEDS ORDERED: FILGRASTIM 300 MCG/ML VIAL SQ ONE (18:00)
--- NOTE | 2021-02-09 18:21 | Discharge Summary ---
Date of Service February 09, 2021 Admission HPI Per Admitting Provider This is a 60 yo F with PMHx of bilateral lung transplant on immunosuppression ([facility] 11/11/2019), HLD, paroxysmal atrial fibrillation, COPD, pulmonary emphysema, CKD stage III, HLD, anemia who presents with several complaints today including posttussive vomiting, wheezing, weakness, fatigue, decreased appetite over the past 1 week. Her wheezing is loud and has used home nebulizers within the past week, she also reports using 1.5 L O2 at bedtime at baseline however has needed to use it throughout the day for the past week. In December, she underwent bronchoscopy where they found a virus in her lung, and required treatment IV antibiotic in that she thought caused her nausea and vomiting and therefore cut the treatment course short by 2 days. Since that point time she does not feel her nausea or vomiting has really improved. She takes Nepro tube feeds daily for 12 hours overnight, and reports she thinks that her tube has been functioning correctly however her does the majority of flushes/administration of tube feeds. She feels that her nausea is worse in the morning when she wakes up after the overnight feedings. She has poor appetite and has been consuming only small amount of food orally. She is able to tolerate her meds po, but missed morning doses due to feeling unwell. Patient also reports having worsening diarrhea over the last 24 hours, she has had C. difficile before. She recently saw GI at [facility] as an outpatient, who she feels did not have much to offer. He denies any recent fevers, chills or sweats. Patient also notes that she is hardly outside, and denies any known recent tick bites. She does not have any pets that are in and outside of her home. Admission Exam Per Admitting Provider General: awake, alert, no apparent distress Head: Normocephalic, atraumatic ENT: PERRL, EOMI, no pharyngeal exudate, mucous membranes moist Chest: On 2 L via NC, Coarse breath sounds and loud audible wheeze heard throughout, diminished breath sounds in the RUL. Cardiac: sinus tach with HR in 90s-100s, no murmur, no JVD, normal peripheral pulses, good capillary refill Abdominal: NABS x 4 quadrants, soft,+ slightly distended, nontender to palpation, no rebound or guarding Extremities: Normal inspection, no peripheral edema or erythema, calfs nontender to palpation Psych: Normal mood and affect Neuro: AAO x 3, strength intact bilaterally and rated 5/5, no motor deficits, speech is clear, no peripheral sensory deficits Principal Diagnosis Hypoxic respiratory failure with neutropenia Discharge Data Allergies Allergy/AdvReac Type Severity Reaction Status Date / Time glimepiride AdvReac Severe Fainting Verified 02/09/21 08:16 Consultations 02/09/21 09:15 ED Decision to Admit Stat 02/09/21 14:01 Consult Pulmonology Routine 02/09/21 18:09 Burn CD for patient Stat Ordered Studies 02/09/21 06:43 CT angio chest PE protocol Stat 02/09/21 10:55 CT abd pelvis oral con only Stat Hospital Course (1) Acute on chronic respiratory failure with hypoxemia: - Admit to PCU - Hypoxic with O2 at 86% on arrival to the ER, improved to 94% on 2 L, wears baseline of 1.5 at bedtime, and throughout the day - Continue IV cefepime and will add Vanc - Negative COVID-19 - Neg procal - Follow blood cultures - CTA chest reviewed - possible pna? - IV nebs, prednisone 50 mg daily, hold home hydrocortisone, given dexamethasone in the ER. -Consult pulmonology, follows with [facility] status post transplant (2) Lung transplant status, bilateral: - Will need to monitor tacrolimus level, currently on 5.5 mg BID, goal level 10-12 - Cont valganciclovir 450 mg every 2 days, cont azathioprine 100 mg daily, inhaled liposomal amphotericin weekly (Monday) - Antibiotics as above - hold Bactrim SS every Mon/Th, hold hydrocortisone 20 mg QAM and 10 Q lunch and dinner time -Known RUL/RBI stenosis requiring dilation and stenting by Dr. Haley: Continued inhaled steroid given airway stenosis -Patient was recently seen at [facility], pulmonology for nausea and vomiting, failure to thrive s/p PEG J transplant and initiation of tube feeds - she was experimenting with different timing of her medications which has somewhat improved nausea and vomiting. (3) Chronic leukopenia: (4) Neutropenia: - Possible lyme or anaplasmosis - check labs - No known hx of tick bite - Monitor with cbc plus diff daily - neutropenia is new (5) Nausea & vomiting: -Secondary to delayed gastric emptying, aggravated by coughing with airway stenosis, was previously on Reglan but switch to domperidone -PEG-J nocturnal tube feeds-was discussed to remove this if nausea improved and was able to tolerate p.o. diet -Continue medication spacing, as this has given some improvement recently -Check c diff, hx of such. 1 day diarrhea. (6) Pulmonary hypertension: -Continue metoprolol tartrate 37.5 twice daily -Not on anticoagulation (7) CKD (chronic kidney disease), stage III: -Creatinine baseline of 1.4-1.9, creatinine currently 1.32, BUN 42 (8) Paroxysmal A-fib: - Rate control with BB as above, not on anticoagulation - pt reports no hx of bleed or other contraindication that she is aware of. This occurred after her surgery for bilateral lung transplants and then again during her prolonged hospital stay afterwards ( 5 months) (9) Hypercholesterolemia: - Hs of such, not on statin DVT ppx: - teds, scds, heparin subcu CODE: Full code Dispo: From home, likely to remain in the hospital x 1-[address] Hinojosa CAP with hx of IV abx use within 90 days & Hypoxic respiratory failure: will empirically treat the pt with vanc and cefepime - even though procal is normal: due to pt being on immunosuppression treatment will continue the abx - Pulm consult SOB with wheezing: duoneb q4 hrs with prednisone 50mg daily (will hold home hydrocortisone dose) Worsening Vomiting with nausea: due to hx of PEG J placement will get CT abd/pelvis with oral contrast ---- nutrition consult Chronic leukopenia with Neutropenia: new neutropenia --- will get lyme and anaplasmosis --- trend CBC Total Time Total Time Spent Total Time Spent (In Minutes): 45 mins Discharge Plan Discharge Items Patient Disposition: Transfer Acute Care Hospital Reason For Visit: PNEUMONIA,KAUSHAL TRANSPLANT,PANCYTOPENIA Discharge Diagnosis: Hypoxic respiratory failure with neutropenia Activity: Per Instructions section Non-emergency contact: Primary Care Provider Call non-emergency contact if: your symptoms worsen Follow-up/Referrals: Jeferson Vinson MD [Primary Care Provider] - Diet: Carb Consistent or DM2 Addtl Attending Provider Instructions: Pt is transferred to [facility] Pending Studies at Discharge: No Stand-Alone Forms: My [facility] Skilled Items Patient informed of condition?: Yes DNR: No Discharge Level of Care: Other Communicable Disease: No Discharge Prognosis: Stable Lines: Peripheral IV Urinary Catheter: No Medications and DC Order Prescriptions: Continued pantoprazole [Protonix] 40 mg tablet,delayed release (DR/EC) 40 mg PO HS RF: 0 valganciclovir [Valcyte] 450 mg Tablet 450 mg PO Q2D RF: 0 tacrolimus [Prograf] 5 mg Capsule 5 mg PO Q12H RF: 0 Domperidone 20 mg PO QID RF: 0 azithromycin 250 mg tablet 250 mg PO DAILY RF: 0 cetirizine 5 mg Tablet 5 mg PO DAILY RF: 0 azathioprine 50 mg Tablet 50 mg PO DAILY RF: 0 amitriptyline 50 mg tablet 50 mg PO QS RF: 0 fludrocortisone 0.1 mg tablet 0.1 mg PO DAILY RF: 0 Arnuity Ellipta 200 mcg/actuation blister with device 1 inh INHALATION DAILY RF: 0 tacrolimus 1 mg Capsule 0.5 mg PO Q12 RF: 0 sulfamethoxazole-trimethoprim [Bactrim] 400-80 mg tablet 1 tab PO 2XWK RF: 0 prochlorperazine maleate [Compazine] 10 mg tablet 10 mg PO BID RF: 0 hydrocortisone [Cortef] 20 mg tablet See Rx Instructions .ROUTE .COMPLEX RF: 0 metoprolol tartrate 25 mg tablet 37.5 mg PO BID RF: 0 Discharge Orders: Discharge Order (Routine); Ordered 02/09/21 Ordered By: Fredy Hinojosa Admission Data Admit Date/Time: 02/09/21 09:58 Attending Provider: Fredy Hinojosa Admit Provider: Fredy Hinojosa Primary Care Provider: Jeferson Vinson Other Providers: Fredy Hinojosa ; Jasvir Melgar Supervising Physician Co-Signing Physician Notes CAP with hx of IV abx use within 90 days & Hypoxic respiratory failure: will empirically treat the pt with vanc and cefepime - even though procal is normal: due to pt being on immunosuppression treatment will continue the abx - Pulm consult SOB with wheezing: duoneb q4 hrs with prednisone 50mg daily (will hold home hydrocortisone dose) Worsening Vomiting with nausea: due to hx of PEG J placement will get CT abd/pelvis with oral contrast Chronic leukopenia with Neutropenia: new neutropenia --- will get lyme and anaplasmosis --- trend CBC
--- NOTE | 2021-02-09 18:27 | Electrocardiogram Report ---
Test Reason : Blood Pressure : / mmHG Vent. Rate : 118 BPM Atrial Rate : 118 BPM P-R Int : 116 ms QRS Dur : 080 ms QT Int : 328 ms P-R-T Axes : 058 054 073 degrees QTc Int : 459 ms Sinus tachycardia Possible Left atrial enlargement Borderline ECG When compared with ECG of 21-OCT-2020 10:47, No significant change was found Confirmed by Ebenezer Holman ([id number]) on 02/09/2021 6:26:59 PM Referred By: REFERRED SELF Confirmed By:Faisal Holman
[2021-02-09 18:37] LABS: Adenovirus PCR Not Detected (NotDetected); Bordetella parapertussis PCR Not Detected (NotDetected); Bordetella pertussis PCR Not Detected (NotDetected); Chlamydia pneumoniae PCR Not Detected (NotDetected); Coronavirus 229E PCR Not Detected (NotDetected); Coronavirus CoV-2 (COVID19)PCR Not Detected (NotDetected); Coronavirus HKU1 PCR Not Detected (NotDetected); Coronavirus NL63 PCR Not Detected (NotDetected); Coronavirus OC43PCR Not Detected (NotDetected); Human Metapneumovirus PCR Not Detected (NotDetected); Influenza A PCR Not Detected (NotDetected); Influenza B PCR Not Detected (NotDetected); Mycoplasma pneumoniae PCR Not Detected (NotDetected); Parainfluenza Virus 1 PCR Not Detected (NotDetected); Parainfluenza Virus 2 PCR Not Detected (NotDetected); Parainfluenza Virus 3 PCR Not Detected (NotDetected); Parainfluenza Virus 4 PCR Not Detected (NotDetected); Respiratory Syncytial VirusPCR Not Detected (NotDetected); Rhinovirus/Enterovirus PCR Not Detected (NotDetected)
[2021-02-09] MEDS ORDERED: AMITRIPTYLINE HCL 50 MG TAB PO SCH (21:00)
[2021-02-09] MEDS ORDERED: TACROLIMUS 0.5 MG CAP PO SCH (21:00)
[2021-02-09] MEDS ORDERED: CEFEPIME 2,000 MG in SYRINGE 0 ML IV SCH (21:00)
[2021-02-09] MEDS ORDERED: PANTOprazole 40 MG TAB PO SCH (21:00)
[2021-02-09] MEDS ORDERED: HEPARIN SOD 5,000 UNIT/0.5 ML VIAL SQ SCH (21:00)
[2021-02-09] MEDS ORDERED: TACROLIMUS 1 MG CAP PO SCH (21:00)
[2021-02-10] MEDS ORDERED: predniSONE 50 MG TAB PO SCH (09:00)
[2021-02-10] MEDS ORDERED: VANCOMYCIN HCL 1,000 MG in SODIUM CHLORIDE 0.9% 250 ML IV SCH (11:00)
[2021-02-12] MEDS ORDERED: AMPHOTERICIN B LIPOSOME INH SCH ×2 (09:00)
== END 2021-02-09 20:00 | disposition short-term general hospital (02) | DRG 189 ==
LOC: ED 06:03 → 2S 09:58

== ENCOUNTER 2021-05-07 09:32 | Inpatient (IN) ==
[2021-05-07] MEDS ORDERED: SODIUM CHLORIDE 0.9% 500 ML IV SCH (10:15)
[2021-05-07] MEDS ORDERED: PIPERACILL/TAZOBAC CONSULT ACTIVE PRN (10:15)
[2021-05-07] MEDS ORDERED: PIPERACILLIN/TAZOBACTAM 4.5 GM/120 ML BAG IV ONE (10:15)
--- NOTE | 2021-05-07 10:20 | Emergency Department Note ---
Impression & Plan Hypotension, Lung transplant status, bilateral, Hypoxia, ROYER (acute kidney injury), Influenza A ED Provider Note NAME: ANTWON TAI AGE: 60 SEX: F : 1960 ARRIVES VIA: Walk-In INFORMANT: [Patient] ED PROVIDER(S): [Pieter Martin MD] CHIEF COMPLAINT: Short of breath, weak HISTORY OF PRESENT ILLNESS: The patient is a 60-year-old female who has had a bilateral lung transplant. She states that she has felt poorly for about a week. Things have worsened over the last week. She has no appetite, she feels dehydrated. She is weak and actually fell 2 days ago. She struck her head 2 days ago but did not lose consciousness and does not have any current headache. She denies any chest pain, she admits to some cough and she admits that she is using her oxygen duri ng the day now when she supposed only use it at night. No fever described. She has not had vomiting or diarrhea. She is vaccinated for Covid x3. She has had an influenza vaccination. She denies any sick contacts. The patient is here because of her increasing fatigue and weakness. In triage, she was hypotensive and hypoxic. REVIEW OF SYSTEMS: See HPI for pertinent positives and negatives. A total of ten systems were reviewed and were otherwise negative. PMHx/PSHx: See Below SOCIAL HISTORY: See Below. PHYSICAL EXAM: GENERAL: Patient is in no acute distress. HEENT: No acute trauma, normocephalic atraumatic, mucous membranes moist, no nasal congestion, no scleral icterus. NECK: No stridor, no adenopathy, no meningismus, trachea is midline. LUNGS: Rhonchi bilaterally, breath sounds are equal, there is an increased respiratory rate but no respiratory distress. HEART: Mildly tachycardic, subtle murmur, regular rhythm. ABDOMEN: Soft, nontender, bowel sounds positive, no hernias, no peritonitis. Feeding tube noted in the left upper quadrant. EXTREMITIES: No cyanosis or edema, full range of motion of all the joints without pain or difficulty, no signs for acute trauma. NEUROLOGIC: Oriented x 3, no acute motor or sensory deficits, no focal weakness. SKIN: No rash, no jaundice, no diaphoresis. DIFFERENTIAL DIAGNOSIS: Infection, dehydration, metabolic abnormality, COVID-19, influenza, rejection, hypo/hyperglycemia, electrolyte disturbance, anemia, hypoxia, cardiac sources, intracerebral event, toxicologic issues, stroke, TIA, as well as other pathologies. EMERGENCY DEPARTMENT COURSE/PROCEDURES: ECG: Indication was shortness of breath and weakness. The ECG shows a normal sinus rhythm with a rate of 91. There is some baseline artifact. There is no ST elevation. No PVCs. The QTc is 467. Continuous Cardiac Monitoring: An order was placed for continuous cardiac monitoring. The monitor shows a rate of 91 with normal sinus rhythm. Critical Care Note: I have personally spent 49 minutes of critical care time in the direct management of this patient. This includes bedside care, interpretation of diagnostic studies, and testing, discussion with consultants, patient, and family members, and other required patient management activities. This 49 minutes is in excess of all separately billable procedures. MEDICAL DECISION MAKING: There is no leukocytosis. The patient is anemic but this appears baseline when looking back at previous testing. There was a normal platelet count. Sodium slightly low at 129. Potassium was normal. Creatinine was high at 3.68. Lactic acid level was not elevated making severe sepsis less likely. No concerning liver enzyme elevation. The patient appeared to be in a euthyroid state. ECG shows a sinus rhythm, no acute ischemia. Cardiac enzyme testing x1 is not not consistent with acute cardiac injury. Covid testing returned negative. RSV testing returned negative. Influenza testing returned positive for influenza A. Chest x-ray show what appears to be some parenchymal congestion, possibly slightly worse compared to previous films Chest CT did not show a focal pneumonia. Some bronchiectasis was noted. Brain CT showed no acute bleed or mass-effect. On exam, the patient was initially hypoxic and hypotensive. The hypoxia resolved with O2 supplementation. The hypotension resolved with hydration. The patient was given a liter of IV saline for hydration. She received IV Zosyn as empiric antibiotic coverage. She was given a DuoNeb. She was given oral Tamiflu. The patient is in need of a hospital stay given her findings. I did speak with the transplant center in [place]. They suggested decreasing the Prograf dose slightly. They suggested Tamiflu and hydration. They suggested antibiotics empirically as she has had some Pseudomonas grow in her lungs previously. I did speak with the patient and behavioral health case manager. The on-call hospitalist was consulted. Past Med/Surg History Medical History ASCUS of cervix with negative high risk HPV Bronchiectasis following lung transplantation Cholesteatoma of both middle ears Chronic mastoiditis Chronic obstructive pulmonary disease Chronic respiratory failure with hypoxia and hypercapnia Chronic tympanomastoiditis Encounter for mastoidectomy cavity debridement History of actinic keratosis Hypercholesterolemia LGSIL on Pap smear of cervix Osteoporosis Paroxysmal A-fib Postmenopausal Pulmonary emphysema Pulmonary hypertension Surgical History History of colposcopy History of ear surgery Hx of colonoscopy Hx of tonsillectomy Lung transplant status, bilateral 11/11/2019 [facility] [place] S/P cardiac cath S/P dilation and curettage S/P wisdom tooth extraction Family History Mother Adenocarcinoma of lung Osteoporosis Rheumatoid arthritis Lung cancer Myocardial infarction Aunt Breast cancer maternal aunt Grandfather (Paternal) Colorectal cancer Father Lung cancer Denies family history of Ovarian cancer Social History Smoking Status: Former smoker Tobacco Type: Cigarettes Cigarettes Per Day: 1 ppd for 23 years; Second Hand Exposure: No; Hx Alcohol Use: Yes Alcohol type: beer Hx Substance Use: No Preferred Language: [place] Communication Ability: Effective Soft Boarder Required: No Beliefs That Will Affect Care: None marital status: Current Living Situation: Spouse Feels Safe at Home: Yes Assistive Devices: Cane, Glasses, Oxygen - Continuous and Walker Allergies Allergies Allergy/AdvReac Type Severity Reaction Status Date / Time glimepiride AdvReac Severe Fainting Verified 05/07/21 12:01 Home Meds Home Medications Medication Instructions Recorded Confirmed pantoprazole 40 mg tablet,delayed 40 mg PO DAILY@1200 01/24/20 05/07/21 release (Protonix) valganciclovir 450 mg tablet 450 mg PO DAILY@1200 01/24/20 05/07/21 (Valcyte) hydrocortisone 20 mg tablet See Rx Instructions .ROUTE .COMPLEX 09/08/20 05/07/21 (Cortef) prochlorperazine maleate 10 mg 10 mg PO BID PRN 09/08/20 05/07/21 tablet (Compazine) sulfamethoxazole 400 1 tab PO 2XWK 09/08/20 05/07/21 mg-trimethoprim 80 mg tablet (Bactrim) Domperidone 20 mg PO QID 10/21/20 05/07/21 amitriptyline 50 mg tablet 50 mg PO HS 02/09/21 05/07/21 azithromycin 250 mg tablet 250 mg PO DAILY@1200 02/09/21 05/07/21 tacrolimus 1 mg capsule, 4 mg PO BID 02/09/21 05/07/21 immediate-release acetaminophen 500 mg tablet 1,000 mg PO HS PRN 05/07/21 05/07/21 albuterol sulfate 2.5 mg INHALATION Q4H PRN 05/07/21 05/07/21 citalopram 10 mg tablet 10 mg PO DAILY@1200 05/07/21 05/07/21 everolimus (immunosuppressive) 0.5 2 mg PO BID 05/07/21 05/07/21 mg tablet fluticasone furoate 200 1 ea INHALATION QAM 05/07/21 05/07/21 mcg-vilanterol 25 mcg/dose inhalation powder (Breo Ellipta) lorazepam 0.5 mg tablet 0.5 mg SUBLINGUAL BID 05/07/21 05/07/21 metoprolol tartrate 50 mg tablet 50 mg PO BID 05/07/21 05/07/21 sennosides 8.6 mg tablet (senna) 8.6 mg PO HS PRN 05/07/21 05/07/21 Results & Data (ED) Vital Signs Vital Signs - 24 hr 05/07/21 09:42 05/07/21 10:05 05/07/21 11:03 Temperature 36.8 C Temperature Source Skin Pulse Rate 94 H Pulse Rate [Apical] 91 H Pulse Rhythm [Apical] Respiratory Rate 28 H 26 H Respiratory Effort / Characteristics Spontaneous Short of Breath Short of Breath Short of Breath Respiratory Depth Normal Respiratory Pattern Regular Tachypnea Regular Blood Pressure 87/58 L Blood Pressure [Left Arm] Blood Pressure [Right Arm] 126/76 Blood Pressure Mean 67 Blood Pressure Mean [Left Arm] Blood Pressure Mean [Right Arm] 92 Pulse Oximetry 81 L 100 Oxygen Delivery Method Room Air Nasal Cannula Nasal Cannula Oxygen Flow Rate 3 4 Sepsis Recent Fever Within 48 Hours No Sepsis New/Unexplained Change in Mental Status N/A Sepsis Action Taken by Nursing No Action Required 05/07/21 11:39 05/07/21 12:51 05/07/21 13:29 Temperature Temperature Source Pulse Rate Pulse Rate [Apical] 88 90 88 Pulse Rhythm [Apical] Regular Respiratory Rate 26 H 26 H 20 Respiratory Effort / Characteristics Spontaneous Non-Labored Spontaneous Respiratory Depth Respiratory Pattern Blood Pressure Blood Pressure [Left Arm] 117/69 129/72 Blood Pressure [Right Arm] Blood Pressure Mean Blood Pressure Mean [Left Arm] 85 91 Blood Pressure Mean [Right Arm] Pulse Oximetry 100 100 99 Oxygen Delivery Method Nasal Cannula Nasal Cannula Nasal Cannula Oxygen Flow Rate 3 4 4 Sepsis Recent Fever Within 48 Hours Sepsis New/Unexplained Change in Mental Status Sepsis Action Taken by Assisted Medications Current Medication List: was personally reviewed by me Laboratory Data Attestation: I reviewed the patient's lab results. Result diagrams: 05/07/21 10:04 05/07/21 10:04 Lab Results 05/07/21 05/07/21 05/07/21 Range/Units 10:04 10:04 10:57 WBC 4.59 L (4.8-10.8) K/uL RBC 2.53 L (4.2-5.4) M/uL Hgb 7.9 L (12.0-16.0) g/dL Hct 23.8 L (37-47) % MCV 94.1 (80-100) fL MCH 31.2 (25-34) pg MCHC 33.2 (32-36) g/dL RDW Std Deviation 50.9 H (36.4-46.3) fL RDW Coeff of Janina 14.9 H (11.5-14.5) % Plt Count 211 (130-400) K/uL MPV 9.7 (7.4-10.4) fL Immature Gran % (Auto) 6.3 % Neut % (Auto) 74.2 % Lymph % (Auto) 6.5 % [place] % (Auto) 12.6 % Eos % (Auto) 0.2 % Baso % (Auto) 0.2 % Neut # (Auto) 3.40 (1.4-6.5) K/uL Lymph # (Auto) 0.30 L (1.2-3.4) K/uL [place] # (Auto) 0.58 (0.11-0.59) K/uL Eos # (Auto) 0.01 (0-0.5) K/uL Baso # (Auto) 0.01 (0-0.2) K/uL Immature Gran # (Auto) 0.29 H (0.00-0.02) K/uL Dohle Bodies 2+ Sodium 129 L (136-145) mmol/L Potassium 3.6 (3.5-5.1) mmol/L Chloride 96 L (98-107) mmol/L Carbon Dioxide 23 (21-32) mmol/L Anion Gap 10.0 (3-11) BUN 72 H (7-18) mg/dl Creatinine 3.68 H (0.6-1.2) mg/dl Est Cr Clr Drug Dosing 13.1 ml/min Est GFR ( Amer) 14.5 ml/min Est GFR (Non-Af Amer) 12.5 ml/min BUN/Creatinine Ratio 19.5 (10-20) Glucose 155 H (70-99) mg/dl Lactate (0.4-2.0) mmol/L Calcium 9.4 (8.5-10.1) mg/dl Magnesium 1.8 (1.8-2.4) mg/dl Total Bilirubin 0.3 (0.2-1) mg/dl AST 29 (15-37) U/L ALT 20 (12-78) U/L Alkaline Phosphatase 101 (45-117) U/L Troponin I < 0.015 (0-0.045) ng/ml Total Protein 6.5 (6.4-8.2) gm/dl Albumin 2.2 L (3.4-5.0) gm/dl Globulin 4.3 H (2.5-4.0) gm/dl Albumin/Globulin Ratio 0.5 L (0.9-2) TSH 0.570 (0.300-4.500) uIu/ml SARS-CoV-2 (PCR) NEGATIVE (Negative) Influenza Type A (PCR) Positive A* (Neg) Influenza Type B (PCR) Negative (Neg) RSV (RT-PCR) Negative (Neg) 05/07/21 Range/Units 11:16 WBC (4.8-10.8) K/uL RBC (4.2-5.4) M/uL Hgb (12.0-16.0) g/dL Hct (37-47) % MCV (80-100) fL MCH (25-34) pg MCHC (32-36) g/dL RDW Std Deviation (36.4-46.3) fL RDW Coeff of Janina (11.5-14.5) % Plt Count (130-400) K/uL MPV (7.4-10.4) fL Immature Gran % (Auto) % Neut % (Auto) % Lymph % (Auto) % [place] % (Auto) % Eos % (Auto) % Baso % (Auto) % Neut # (Auto) (1.4-6.5) K/uL Lymph # (Auto) (1.2-3.4) K/uL [place] # (Auto) (0.11-0.59) K/uL Eos # (Auto) (0-0.5) K/uL Baso # (Auto) (0-0.2) K/uL Immature Gran # (Auto) (0.00-0.02) K/uL Dohle Bodies Sodium (136-145) mmol/L Potassium (3.5-5.1) mmol/L Chloride (98-107) mmol/L Carbon Dioxide (21-32) mmol/L Anion Gap (3-11) BUN (7-18) mg/dl Creatinine (0.6-1.2) mg/dl Est Cr Clr Drug Dosing ml/min Est GFR ( Amer) ml/min Est GFR (Non-Af Amer) ml/min BUN/Creatinine Ratio (10-20) Glucose (70-99) mg/dl Lactate 0.7 (0.4-2.0) mmol/L Calcium (8.5-10.1) mg/dl Magnesium (1.8-2.4) mg/dl Total Bilirubin (0.2-1) mg/dl AST (15-37) U/L ALT (12-78) U/L Alkaline Phosphatase (45-117) U/L Troponin I (0-0.045) ng/ml Total Protein (6.4-8.2) gm/dl Albumin (3.4-5.0) gm/dl Globulin (2.5-4.0) gm/dl Albumin/Globulin Ratio (0.9-2) TSH (0.300-4.500) uIu/ml SARS-CoV-2 (PCR) (Negative) Influenza Type A (PCR) (Neg) Influenza Type B (PCR) (Neg) RSV (RT-PCR) (Neg) Administered Medications Discontinued Medications Albuterol (Albut/Ipratrop 3mg/0.5mg Neb 3 Ml Vial) 3 ml NEB NOW STA Stop: 05/07/21 13:04 Last Admin: 05/07/21 13:29 Dose: 3 ml Documented by: [id number] Sodium Chloride (Nss) 500 mls @ 999 mls/hr IV .Q31M FRANCIE Stop: 05/07/21 10:45 Last Infusion: 05/07/21 12:10 Dose: 0 mls/hr Documented by: [id number] Admin: 05/07/21 11:36 Dose: 999 mls/hr Documented by: [id number] Piperacillin Sod/Tazobactam Sod (Zosyn) 4.5 gm in 120 mls @ 240 mls/hr IV NOW ONE Stop: 05/07/21 10:44 Last Infusion: 05/07/21 12:10 Dose: 0 mls/hr Documented by: [id number] Admin: 05/07/21 11:36 Dose: 240 mls/hr Documented by: [id number] Sodium Chloride (Nss 1000ml) 500 mls @ 999 mls/hr IV .Q31M ONE Stop: 05/07/21 11:33 Last Infusion: 05/07/21 12:10 Dose: 0 mls/hr Documented by: [id number] Admin: 05/07/21 11:36 Dose: 999 mls/hr Documented by: [id number] Oseltamivir Phosphate (Oseltamivir Phosphate Susp 30 Mg/5 Ml Udp) 30 mg PO NOW STA Stop: 05/07/21 12:18 Last Admin: 05/07/21 12:52 Dose: 30 mg Documented by: [id number] Imaging Data Radiologist's Impression: Head CT 05/07/21 10:[address] DOSE: HISTORY: fall, weak, hit head TECHNIQUE: Multiaxial CT images of the head were performed without the use of intravenous contrast. Automated exposure control was utilized for this study. A dose lowering technique was utilized adhering to the principles of ALARA. Comparison: Temporal bone CT 10/12/2012. Findings: Prior right mastoidectomy. The left mastoid air cells are clear. Multiple small fluid levels seen throughout the paranasal sinuses and partial opacification of the ethmoid air cells. This is consistent with an acute paranasal sinusitis. The calvarium and skull base are intact. There is no mass, hematoma, midline shift, acute infarct. White matter hypodensity is nonspecific but suggestive of microvascular ischemic change. The ventricles and sulci demonstrate mild age-related involutional changes. Impression: 1. No acute infarct or intracranial hemorrhage. 2. Mild acute paranasal sinusitis. ACT 112: Negative or not required by law. Electronically signed by: Dirk Evans M.D. 05/07/2021 11:56 AM Chest X-Ray 05/07/21 10:14 XR chest 1V portable CLINICAL HISTORY: weakness. Evaluate cardiopulmonary status COMPARISON STUDY: 02/09/2021 TECHNIQUE: 1 view of the chest FINDINGS: Single frontal view of the chest demonstrates the heart to be mildly enlarged. There is evidence for underlying COPD with attenuation of the pulmonary vasculature peripherally. There is decreased inspiratory effort on the current study with increased alveolar density in the retrocardiac space. This could represent atelectasis versus early infiltrate. Follow-up PA and lateral radiographs would be helpful for further evaluation. There is no evidence for pleural effusion. There is no evidence for vascular congestion. There is no acute osseous pathology. IMPRESSION: COPD with decreased inspiratory effort and increased alveolar density in retrocardiac space. Differential includes atelectasis versus early infiltrate. PA and lateral radiographs would be helpful for further evaluation. ACT 112: Negative or not required by law. Electronically signed by: Chandler Mendosa M.D. 05/07/2021 11:[address] 05/07/21 11:22 CT chest diagnostic wo con CLINICAL HISTORY: sob, lung transplant . Status post fall COMPARISON STUDY: CTA chest from 02/09/2021 and portable chest from 05/07/2021 CT DOSE: 900.95 mGy.cm TECHNIQUE: Standard CT of the Chest was performed without IV contrast. A dose lowering technique was utilized adhering to the principles of ALARA. FINDINGS: Airway: The airway is clear. No endobronchial lesion is identified. Lungs and pleural: The patient is status post previous bilateral lung transplant with postsurgical changes again seen. There is again a stent within the bronchus intermedius. There is again evidence for bronchiectasis involving the right middle lobe and both lung bases. There has been interval development of a small left pleural effusion and left basilar atelectasis and mucous plugging accounting for the increased density seen on the portable chest radiograph. There is a stable pleural-based nodule seen within the left upper lobe posteromedially as seen on image 80. No other definite pulmonary nodules are identified. Mediastinum: There is no evidence for pathologic adenopathy on these limited noncontrast images. Stable lymph nodes are seen within the mediastinum. The heart is again enlarged with enlargement of the main pulmonary artery again seen. The thoracic aorta is within normal limits. There is no evidence for pericardial effusion. Upper abdomen: Images glands were not included on this study. Osseous structures: There is no acute osseous pathology. IMPRESSION: 1. Compared to the previous examination, there is increased small left pleural effusion and left lower lobe atelectasis. Additionally, there is mucous plugging present in left lower lobe bronchiectasis with no confluent alveolar opacity or air bronchogram. 2. There is again evidence of bilateral lung transplantation. 3. Bronchiectasis is also seen involving the right middle lobe and right lower lobe. 4. Cardiomegaly with enlargement of the left main pulmonary artery is again seen characteristic of pulmonary hypertension. ACT 112: Negative or not required by law. Electronically signed by: Chandler Mendosa M.D. 05/07/2021 11:53 AM Discharge Plan Visit Data Chief Complaint: Respiratory Problems Stated Complaint: HARD TO BREATHE ED Provider: Pieter Martin Discharge Problem: Hypotension, Lung transplant status, bilateral, Hypoxia, ROYER (acute kidney injury), Influenza A Patient Disposition: Admitted As Inpatient Condition: Fair Forms Stand Alone Forms: [facility] Prescriptions Prescriptions: No Action pantoprazole [Protonix] 40 mg tablet,delayed release (DR/EC) 40 mg PO DAILY@1200 RF: 0 valganciclovir [Valcyte] 450 mg Tablet 450 mg PO DAILY@1200 RF: 0 Domperidone 20 mg PO QID RF: 0 azithromycin 250 mg tablet 250 mg PO DAILY@1200 RF: 0 amitriptyline 50 mg tablet 50 mg PO HS RF: 0 tacrolimus 1 mg Capsule 4 mg PO BID RF: 0 sennosides [senna] 8.6 mg Tablet 8.6 mg PO HS PRN (Reason: Constipation) RF: 0 albuterol sulfate 2.5 mg /3 mL (0.083 %) Solution For Nebulization 2.5 mg INHALATION Q4H PRN (Reason: Shortness Of Breath) RF: 0 citalopram 10 mg tablet 10 mg PO DAILY@1200 RF: 0 acetaminophen 500 mg Tablet 1,000 mg PO HS PRN (Reason: Pain) RF: 0 lorazepam 0.5 mg tablet 0.5 mg sublingual BID RF: 0 metoprolol tartrate 50 mg tablet 50 mg PO BID RF: 0 everolimus (immunosuppressive) 0.5 mg Tablet 2 mg PO BID RF: 0 Breo Ellipta 200-25 mcg/dose blister with device 1 ea INHALATION QAM RF: 0 sulfamethoxazole-trimethoprim [Bactrim] 400-80 mg tablet 1 tab PO 2XWK RF: 0 prochlorperazine maleate [Compazine] 10 mg tablet 10 mg PO BID PRN (Reason: Nausea And Vomiting) RF: 0 hydrocortisone [Cortef] 20 mg tablet See Rx Instructions .ROUTE .COMPLEX RF: 0 Referrals Referrals: Jeferson Vinson MD [Primary Care Provider] - Discharge Problem: Hypotension Qualifiers: Hypotension type: unspecified hypotension type Qualified Code(s): I95.9 - Hypotension, unspecified
[2021-05-07 10:27] LABS: Hematocrit (blood only) 23.8 % (37-47); Hemoglobin 7.9 g/dL (12.0-16.0); Mean Corpuscular Hemoglobin 31.2 pg (25-34); Mean Corpuscular Hgb Conc 33.2 g/dL (32-36); Mean Corpuscular Volume 94.1 fL (80-100); Mean Platelet Volume 9.7 fL (7.4-10.4); Platelet Count 211 K/uL (130-400); RDW Coefficient of Variation 14.9 % (11.5-14.5); RDW Standard Deviation 50.9 fL (36.4-46.3); Red Blood Count 2.53 M/uL (4.2-5.4); White Blood Count 4.59 K/uL (4.8-10.8)
--- NOTE | 2021-05-07 10:40 | Electrocardiogram Report ---
Test Reason : Blood Pressure : / mmHG Vent. Rate : 091 BPM Atrial Rate : 091 BPM P-R Int : 134 ms QRS Dur : 080 ms QT Int : 380 ms P-R-T Axes : 060 049 084 degrees QTc Int : 467 ms Normal sinus rhythm Possible Left atrial enlargement Borderline ECG When compared with ECG of 09-FEB-2021 06:20, No significant change was found Confirmed by Ebenezer Holman ([id number]) on 05/07/2021 10:40:14 AM Referred By: ED Confirmed By:Faisal Holman
[2021-05-07 10:47] LABS: Alanine Aminotransferase 20 U/L (12-78); Albumin Level 2.2 gm/dl (3.4-5.0); Aspartate Aminotransferase 29 U/L (15-37); BUN Creatinine Ratio 19.5 (10-20); Blood Urea Nitrogen 72 mg/dl (7-18); Calcium 9.4 mg/dl (8.5-10.1); Carbon Dioxide 23 mmol/L (21-32); Chloride 96 mmol/L (98-107); Creatinine Clr Calc Pharmacy 13.1 ml/min; Est GFR (African American) 14.5 ml/min; Est GFR (Non-African American) 12.5 ml/min; Glucose 155 mg/dl (70-99); Magnesium 1.8 mg/dl (1.8-2.4); Potassium 3.6 mmol/L (3.5-5.1); Sodium 129 mmol/L (136-145)
[2021-05-07 10:54] LABS: Basophils # (auto) 0.01 K/uL (0-0.2); Basophils % (auto) 0.2 %; Dohle Bodies 2+; Eosinophils # (auto) 0.01 K/uL (0-0.5); Eosinophils % (auto) 0.2 %; Immature Granulocytes # (auto) 0.29 K/uL (0.00-0.02); Immature Granulocytes % (auto) 6.3 %; Lymphocytes % (auto) 6.5 %; Monocytes # (auto) 0.58 K/uL (0.11-0.59); Monocytes % (auto) 12.6 %; Neutrophils % (auto) 74.2 %
[2021-05-07 10:58] LABS: Albumin Globulin Ratio 0.5 (0.9-2); Alkaline Phosphatase 101 U/L (45-117); Bilirubin,Total 0.3 mg/dl (0.2-1); Globulin 4.3 gm/dl (2.5-4.0); Total Protein 6.5 gm/dl (6.4-8.2); Troponin I < 0.015 ng/ml (0-0.045)
[2021-05-07] MEDS ORDERED: SODIUM CHLORIDE 0.9% 1000ML 500 ML IV ONE (11:03)
--- NOTE | 2021-05-07 11:18 | XRay Report ---
XR chest 1V portable CLINICAL HISTORY: weakness. Evaluate cardiopulmonary status COMPARISON STUDY: 02/09/2021 TECHNIQUE: 1 view of the chest FINDINGS: Single frontal view of the chest demonstrates the heart to be mildly enlarged. There is evidence for underlying COPD with attenuation of the pulmonary vasculature peripherally. There is decreased inspir atory effort on the current study with increased alveolar density in the retrocardiac space. This cou ld represent atelectasis versus early infiltrate. Follow-up PA and lateral radiographs would be helpf ul for further evaluation. There is no evidence for pleural effusion. There is no evidence for vascul ar congestion. There is no acute osseous pathology. IMPRESSION: COPD with decreased inspiratory effort and increased alveolar density in retrocardiac spa ce. Differential includes atelectasis versus early infiltrate. PA and lateral radiographs would be he lpful for further evaluation. ACT 112: Negative or not required by law. Electronically signed by: Chandler Mendosa M.D. 05/07/2021 11:16 AM
[2021-05-07 11:49] LABS: Influenza A virus by PCR Positive (Neg); Influenza B virus by PCR Negative (Neg); RSV by PCR Negative (Neg)
--- NOTE | 2021-05-07 11:54 | CT Scan Report ---
CT chest diagnostic wo con CLINICAL HISTORY: sob, lung transplant . Status post fall COMPARISON STUDY: CTA chest from 02/09/2021 and portable chest from 05/07/2021 CT DOSE: 900.95 mGy.cm TECHNIQUE: Standard CT of the Chest was performed without IV contrast. A dose lowering technique was utilized adhering to the principles of ALARA. FINDINGS: Airway: The airway is clear. No endobronchial lesion is identified. Lungs and pleural: The patient is status post previous bilateral lung transplant with postsurgical ch anges again seen. There is again a stent within the bronchus intermedius. There is again evidence for bronchiectasis involving the right middle lobe and both lung bases. There has been interval development of a small left pleural effusion and left basilar atelectasis and mucous plugging accounting for the increased density seen on the portable chest radiograph. There is a stable pleural-based nodule seen within the left upper lobe posteromedially as seen on jordan [id number]. No other definite pulmonary nodules are identified. Mediastinum: There is no evidence for pathologic adenopathy on these limited noncontrast images. Stab le lymph nodes are seen within the mediastinum. The heart is again enlarged with enlargement of the m ain pulmonary artery again seen. The thoracic aorta is within normal limits. There is no evidence for pericardial effusion. Upper abdomen: Images glands were not included on this study. Osseous structures: There is no acute osseous pathology. IMPRESSION: 1. Compared to the previous examination, there is increased small left pleural effusion and left lowe r lobe atelectasis. Additionally, there is mucous plugging present in left lower lobe bronchiectasis with no confluent alveolar opacity or air bronchogram. 2. There is again evidence of bilateral lung transplantation. 3. Bronchiectasis is also seen involving the right middle lobe and right lower lobe. 4. Cardiomegaly with enlargement of the left main pulmonary artery is again seen characteristic of pu lmonary hypertension. ACT 112: Negative or not required by law. Electronically signed by: Chandler Mendosa M.D. 05/07/2021 11:53 AM
--- NOTE | 2021-05-07 11:57 | CT Scan Report ---
HEAD CT NONCONTRAST CT DOSE: HISTORY: fall, weak, hit head TECHNIQUE: Multiaxial CT images of the head were performed without the use of intravenous contrast. A utomated exposure control was utilized for this study. A dose lowering technique was utilized adheri ng to the principles of ALARA. Comparison: Temporal bone CT 10/12/2012. Findings: Prior right mastoidectomy. The left mastoid air cells are clear. Multiple small fluid level s seen throughout the paranasal sinuses and partial opacification of the ethmoid air cells. This is c onsistent with an acute paranasal sinusitis. The calvarium and skull base are intact. There is no mas s, hematoma, midline shift, acute infarct. White matter hypodensity is nonspecific but suggestive of microvascular ischemic change. The ventricles and sulci demonstrate mild age-related involutional carlos enrique nges. Impression: 1. No acute infarct or intracranial hemorrhage. 2. Mild acute paranasal sinusitis. ACT 112: Negative or not required by law. Electronically signed by: Dirk Evans M.D. 05/07/2021 11:56 AM
[2021-05-07] MEDS ORDERED: OSELTAMIVIR PHOSPHATE 75 MG CAP PO STA (12:12)
[2021-05-07] MEDS ORDERED: OSELTAMIVIR PHOSPHATE SUSP 30 MG/5 ML UDP PO STA (12:17)
[2021-05-07] MEDS ORDERED: ALBUT/IPRATROP 3MG/0.5MG NEB 3 ML VIAL NEB STA (13:03)
--- NOTE | 2021-05-07 14:29 | History & Physical Report ---
Date of Service May 07, 2021 Assessment & Plan (1) Influenza A: (2) Hypoxia: (3) Lung transplant status, bilateral: Plan: Patient is a 60-year-old female with PMH bilateral lung transplant in 2019 at [facility] with complicated course including difficulty weaning off the ventilator requiring tracheostomy, recurrent pneumonia and airway stenosis with stent in right bronchus intermedius, h/o pulmonary hypertension no longer on medications, paroxysmal atrial fibrillation, CKD III, history chronic nausea and vomiting with G-J tube in place with tube feedings, anemia and others listed below presented to ER with c/o weakness x 1 week. SOB past couple of days. +Influenza and COVID vaccinations. Today in ER pt afebrile, P: 94, R: 28, BP: 87/58 up to 129/72 after 500ml NSS, 81%RA up to 100% on 3L via NC. WBC: 4.5, Hgb: 7.5, Na: 130 corrected, BUN: 72, Cr: 3.68, Lactate: 0.7. Positive Influenza A, Negative COVID test. Negative RSV. CT head no acute intracranial findings CT CHEST: 1. Compared to the previous examination, there is increased small left pleural effusion and left lower lobe atelectasis. Additionally, there is mucous plugging present in left lower lobe bronchiectasis with no confluent alveolar opacity or air bronchogram. 2. There is again evidence of bilateral lung transplantation. 3. Bronchiectasis is also seen involving the right middle lobe and right lower lobe. 4. Cardiomegaly with enlargement of the left main pulmonary artery is again seen characteristic of pulmonary hypertension. ER physician spoke to [facility] Transplant Center: [phone]. scallop binder was Dr Roberta Reyna who recommended pt did not need transferred at this time and recommends Cefepime with her h/o pseudomonas and renally dosed Tamiflu. Also recommends decreasing tacrolimus to 3mg Q12H secondary to renal functions. Recommends trough in am. Patient currently doing well on 2 L oxygen via nasal cannula, wean as able. Continue home 1.5-2L oxygen HS Renal dose Tamiflu Cefepime renal dosed Her tacrolimus goal is 6-8. However with current ROYER will decrease her tacrolimus to 3mg BID, obtain trough in a.m. per transplant recommendations Continue everolimus Pt with h/o CMV in 02/2021. Renal dose Valcyte Continue hydrocortisone 20mg a.m., 10mg PM Will hold her Bactrim currently with ROYER. She takes on mondays and . Monitor renal functions closely Continue home inhalers and albuterol nebulizers Continue airway clearance with flutter valve and chest vibration vest Continue azithromycin Pt's transplant team at [facility]. scallop binder physician was Roberta Reyna. CBC, BMP in am (4) ROYER (acute kidney injury): Plan: ROYER on CKD III Baseline Cr: 1.4-1.9 Today Cr: 3.6. Pt denies urinary symptoms, flank or abdominal pain UA pending Pt clinically dry IVF Monitor renal functions, avoid nephrotoxic agents when possible, renal dose meds Nephrology consult (5) Hyponatremia: Plan: Corrected Na of 130 IVF Monitor History Pulmonary hypertension History of intermittent nausea and vomiting/suspected delayed gastric emptying Has G-J-tube in place. History of it being repositioned 02/2021 and patient was doing much better and able to tolerate oral feeds tube feeds until 2 days ago. Continue domperidone, Elavil History Paroxysmal Atrial Fibrillation Previously on Amiodarone, Now discontinued Continue metoprolol tartrate History anemia Hgb: 7.9. Baseline 8-9 No symptoms active bleeding Monitor H&H DVT Prophylaxis SCDs Full Code as per discussion with pt Follows with Dr Vinson for routine care Pt was seen and care coordinated with Dr Álvarez. See addendum History of Present Illness Chief Complaint: Weakness/SOB Primary Care Provider: Jeferson Vinson MD Patient is a 60-year-old female with PMH bilateral lung transplant in 2019 at [facility] with complicated course including difficulty weaning off the ventilator requiring tracheostomy, recurrent pneumonia and airway stenosis with stent in right bronchus intermedius, h/o pulmonary hypertension no longer on medications, paroxysmal atrial fibrillation, CKD III, history chronic nausea and vomiting with G-J tube in place with tube feedings, anemia and others listed below presented to ER with c/o weakness x 1 week. Patient reports one week ago started with weakness, body aches, slight nonproductive cough. Past several days with increased weakness and 2 days ago had a fall. Denies LOC. States increased SOB and has been needing to use her oxygen at 1.5-2L. Normally she has been using oxygen at 1.5-2L HS and as needed basis. Has been feeling to weak to eat. Denies nausea or vomiting. Pt with h/o chronic N/V however had her G-J tube repositioned in 02/2021 and since her symptoms have decreased and past 3 weeks she has been eating well orally and was able to discontinue her overnight tube feeds. She did resume tube feeds past 2 days secondary to her not eating or drinking the past week. Reports constipation this week and took OTC laxative and last night had several BM's. Denies fever/chills, diaphoresis, melena, hematochezia, MONTES, syncope, vision changes, neck pain, CP, orthopnea, palpitations, sore throat, choking, otalgia, rhinorrhea, abdominal pain, paresthesias,extremity edema, rashes, urinary symptoms, urinary retention. Was around family 8 days ago for Thanksgiving a child had an ear infection, no other known ill contacts. Is vaccinated flu and COVID. Today in ER pt afebrile, P: 94, R: 28, BP: 87/58 up to 129/72 after 500ml NSS, 81%RA up to 100% on 3L via NC. WBC: 4.5, Hgb: 7.5, Na: 130 corrected, BUN: 72, Cr: 3.68, Lactate: 0.7. Positive Influenza A, Negative COVID test. Negative RSV. ER physician spoke to [facility] Transplant Center: [phone]. scallop binder was Dr Roberta Reyna who recommended pt did not need transferred at this time and recommends Cefepime with her h/o pseudomonas and renally dosed Tamiflu. Also recommends decreasing tacrolimus to 3mg Q12H secondary to renal functions. Recommends trough in am. Allergies Allergy/AdvReac Type Severity Reaction Status Date / Time glimepiride AdvReac Severe Fainting Verified 05/07/21 12:01 Home Medications Medication Instructions Recorded Confirmed Type pantoprazole 40 mg tablet,delayed 40 mg PO DAILY@1200 01/24/20 05/07/21 History release (Protonix) valganciclovir 450 mg tablet 450 mg PO DAILY@1200 01/24/20 05/07/21 History (Valcyte) hydrocortisone 20 mg tablet See Rx Instructions .ROUTE .COMPLEX 09/08/20 05/07/21 History (Cortef) prochlorperazine maleate 10 mg 10 mg PO BID PRN 09/08/20 05/07/21 History tablet (Compazine) sulfamethoxazole 400 1 tab PO 2XWK 09/08/20 05/07/21 History mg-trimethoprim 80 mg tablet (Bactrim) Domperidone 20 mg PO QID 10/21/20 05/07/21 History amitriptyline 50 mg tablet 50 mg PO HS 02/09/21 05/07/21 History azithromycin 250 mg tablet 250 mg PO DAILY@1200 02/09/21 05/07/21 History tacrolimus 1 mg capsule, 4.5 mg PO BID 02/09/21 05/07/21 History immediate-release acetaminophen 500 mg tablet 1,000 mg PO HS PRN 05/07/21 05/07/21 History albuterol sulfate 2.5 mg INHALATION Q4H PRN 05/07/21 05/07/21 History citalopram 10 mg tablet 10 mg PO DAILY@1200 05/07/21 05/07/21 History everolimus (immunosuppressive) 0.5 2 mg PO BID 05/07/21 05/07/21 History mg tablet fluticasone furoate 200 1 ea INHALATION QAM 05/07/21 05/07/21 History mcg-vilanterol 25 mcg/dose inhalation powder (Breo Ellipta) lorazepam 0.5 mg tablet 0.5 mg SUBLINGUAL BID 05/07/21 05/07/21 History metoprolol tartrate 50 mg tablet 50 mg PO BID 05/07/21 05/07/21 History sennosides 8.6 mg tablet (senna) 8.6 mg PO HS PRN 05/07/21 05/07/21 History Past Med/Surg History Medical History ASCUS of cervix with negative high risk HPV Bronchiectasis following lung transplantation Cholesteatoma of both middle ears Chronic mastoiditis Chronic obstructive pulmonary disease Chronic respiratory failure with hypoxia and hypercapnia Chronic tympanomastoiditis Encounter for mastoidectomy cavity debridement History of actinic keratosis Hypercholesterolemia LGSIL on Pap smear of cervix Osteoporosis Paroxysmal A-fib Postmenopausal Pulmonary emphysema Pulmonary hypertension Surgical History History of colposcopy History of ear surgery Hx of colonoscopy Hx of tonsillectomy Lung transplant status, bilateral 11/11/2019 [facility] [place]by S/P cardiac cath S/P dilation and curettage S/P wisdom tooth extraction Family History Mother Adenocarcinoma of lung Osteoporosis Rheumatoid arthritis Lung cancer Myocardial infarction Aunt Breast cancer maternal aunt Grandfather (Paternal) Colorectal cancer Father Lung cancer Denies family history of Ovarian cancer Social History Smoking Status: Never smoker Tobacco Type: Cigarettes Cigarettes Per Day: 1 ppd for 23 years; Second Hand Exposure: No; Do You Dip or Chew Tobacco: No; Tobacco Cessation Education Requested by Patient: No Hx Alcohol Use: No Hx Substance Use: No Preferred Language: Swedish Communication Ability: Effective Facility Environmental Technician Required: No Beliefs That Will Affect Care: None marital status: Current Living Situation: Spouse Other Information That Helps Us Care for You: No Feels Safe at Home: Yes Safety Concerns: Feels Safe At This Time Assistive Devices: Cane, Glasses, Oxygen - Continuous and Walker Review of Systems Review of Systems: All systems reviewed & are unremarkable except as noted in HPI & below Physical Exam Physical Exam: General: no distress on 2L oxygen, chronic ill appearing Head: normocephalic, atraumatic Eyes: PERRL, EOM's intact, conjunctiva non-injected, anicteric ENT: hard of hearing, normal inspection external ears, nose, mucous membranes dry Neck: supple, trachea midline Lungs: On 2L O2 via NC, +rhonchi CV: RRR, no JVD, no pretibial edema Abd: +G-J tube in place, normal BS, soft, non-tender Ext: no cyanosis, no calf tenderness Neuro: A&O x 3, no focal deficits noted, normal affect Skin: warm, dry Results & Data Results & Data ([facility]) Vital Signs (Past 12 Hours) Vital Signs Temp Pulse Pulse Resp BP BP BP 05/07/21 13:29 88 20 05/07/21 12:51 90 26 H 129/72 05/07/21 11:39 88 26 H 117/69 05/07/21 10:05 91 H 26 H 126/76 05/07/21 09:42 36.8 C 94 H 28 H 87/58 L Pulse Ox 05/07/21 13:29 99 05/07/21 12:51 100 05/07/21 11:39 100 05/07/21 10:05 100 05/07/21 09:42 81 L Laboratory Results Short CBC 05/07/21 Range/Units 10:04 WBC 4.59 L (4.8-10.8) K/uL Hgb 7.9 L (12.0-16.0) g/dL Hct 23.8 L (37-47) % Plt Count 211 (130-400) K/uL BMP 05/07/21 10:04 Sodium 129 L Potassium 3.6 Chloride 96 L Carbon Dioxide 23 BUN 72 H Creatinine 3.68 H Glucose 155 H Calcium 9.4 Cardiac Enzymes 05/07/21 Range/Units 10:04 Troponin I < 0.015 (0-0.045) ng/ml Liver Function 05/07/21 Range/Units 10:04 Total Bilirubin 0.3 (0.2-1) mg/dl AST 29 (15-37) U/L ALT 20 (12-78) U/L Alkaline Phosphatase 101 (45-117) U/L Albumin 2.2 L (3.4-5.0) gm/dl Diagnostic Findings Head CT 05/07/21 10:[address] DOSE: HISTORY: fall, weak, hit head TECHNIQUE: Multiaxial CT images of the head were performed without the use of intravenous contrast. Automated exposure control was utilized for this study. A dose lowering technique was utilized adhering to the principles of ALARA. Comparison: Temporal bone CT 10/12/2012. Findings: Prior right mastoidectomy. The left mastoid air cells are clear. Multiple small fluid levels seen throughout the paranasal sinuses and partial opacification of the ethmoid air cells. This is consistent with an acute paranasal sinusitis. The calvarium and skull base are intact. There is no mass, hematoma, midline shift, acute infarct. White matter hypodensity is nonspecific but suggestive of microvascular ischemic change. The ventricles and sulci demonstrate mild age-related involutional changes. Impression: 1. No acute infarct or intracranial hemorrhage. 2. Mild acute paranasal sinusitis. ACT 112: Negative or not required by law. Electronically signed by: Dirk Evans M.D. 05/07/2021 11:56 AM Chest X-Ray 05/07/21 10:14 XR chest 1V portable CLINICAL HISTORY: weakness. Evaluate cardiopulmonary status COMPARISON STUDY: 02/09/2021 TECHNIQUE: 1 view of the chest FINDINGS: Single frontal view of the chest demonstrates the heart to be mildly enlarged. There is evidence for underlying COPD with attenuation of the pulmonary vasculature peripherally. There is decreased inspiratory effort on the current study with increased alveolar density in the retrocardiac space. This could represent atelectasis versus early infiltrate. Follow-up PA and lateral radiographs would be helpful for further evaluation. There is no evidence for pleural effusion. There is no evidence for vascular congestion. There is no acute osseous pathology. IMPRESSION: COPD with decreased inspiratory effort and increased alveolar density in retrocardiac space. Differential includes atelectasis versus early infiltrate. PA and lateral radiographs would be helpful for further evaluation. ACT 112: Negative or not required by law. Electronically signed by: Chandler Mendosa M.D. 05/07/2021 11:[address] 05/07/21 11:22 CT chest diagnostic wo con CLINICAL HISTORY: sob, lung transplant . Status post fall COMPARISON STUDY: CTA chest from 02/09/2021 and portable chest from 05/07/2021 CT DOSE: 900.95 mGy.cm TECHNIQUE: Standard CT of the Chest was performed without IV contrast. A dose lowering technique was utilized adhering to the principles of ALARA. FINDINGS: Airway: The airway is clear. No endobronchial lesion is identified. Lungs and pleural: The patient is status post previous bilateral lung transplant with postsurgical changes again seen. There is again a stent within the bronchus intermedius. There is again evidence for bronchiectasis involving the right middle lobe and both lung bases. There has been interval development of a small left pleural effusion and left basilar atelectasis and mucous plugging accounting for the increased density seen on the portable chest radiograph. There is a stable pleural-based nodule seen within the left upper lobe posteromedially as seen on image 80. No other definite pulmonary nodules are identified. Mediastinum: There is no evidence for pathologic adenopathy on these limited noncontrast images. Stable lymph nodes are seen within the mediastinum. The heart is again enlarged with enlargement of the main pulmonary artery again seen. The thoracic aorta is within normal limits. There is no evidence for pericardial effusion. Upper abdomen: Images glands were not included on this study. Osseous structures: There is no acute osseous pathology. IMPRESSION: 1. Compared to the previous examination, there is increased small left pleural effusion and left lower lobe atelectasis. Additionally, there is mucous plugging present in left lower lobe bronchiectasis with no confluent alveolar opacity or air bronchogram. 2. There is again evidence of bilateral lung transplantation. 3. Bronchiectasis is also seen involving the right middle lobe and right lower lobe. 4. Cardiomegaly with enlargement of the left main pulmonary artery is again seen characteristic of pulmonary hypertension. ACT 112: Negative or not required by law. Electronically signed by: Chandler Mendosa M.D. 05/07/2021 11:53 AM Code Status & VTE Plan VTE Prophylaxis Plan VTE Prophylaxis will be ordered: Yes Supervising Physician Co-Signing Physician Notes Care coordinated with Delfina Roldan PA-C. Agree with above note. Patient seen and examined. Please refer to her notes for full details. Vital signs reviewed. Physical exam: General exam: Alert and oriented. Not in acute distress.Hard of hearing CVS: S1 and S2 heard, regular rate and rhythm, no murmurs. RS: Clear to auscultation, no wheezing or crackles. ABD: Soft, bowel sounds present, nontender, no distention. CLAIMS VICE PRESIDENT: Nonfocal. EXT: No edema, no erythema. Labs: Reviewed. Assessment and plan: 60F with hx of bilateral lung transplant, pul htn presents wwith one week of weakness and two days of sob and was found to have Infulenza A positive. Currently resting comfortably and hemodynamically stable. afebrile. HAs some cough. No chest pain. Er talked with transplant center and they wanted t keep patinet ere and treat the FLU for now. Influenza Tamiflu with renal dosing supportive care Royer Aoid nephrotoxic agents renal doing of meds pre renal? iv fluids follow labs in am nephro consult in am Bilateral lung transplant hx of severe copd adjusting tacrolimus dose as per renal function. to follow trough levels If any concern to call [facility] transplant center. Other diagnosis and plan of care as per Delfina Roldan PA-C . Keith nelson MD.
[2021-05-07] MEDS ORDERED: AZITHROMYCIN 250 MG TAB PO ONE (15:19)
[2021-05-07] MEDS ORDERED: METOPROLOL TARTRATE 50 MG TAB PO STA (15:19)
[2021-05-07] MEDS ORDERED: VALGANCICLOVIR HCL 450 MG TABLET PO ONE (15:30)
[2021-05-07] MEDS ORDERED: PROCHLORPERAZINE MALEATE 10 MG TAB PO PRN (17:47)
[2021-05-07] MEDS ORDERED: ALBUTEROL 0.083% NEBU SOLN 3 ML VIAL INH PRN (17:47)
[2021-05-07] MEDS ORDERED: D5W AND NSS 1,000 ML IV SCH (17:47)
[2021-05-07] MEDS ORDERED: SENNA 8.6 MG TAB PO PRN (17:47)
[2021-05-07] MEDS: SODIUM CHLORIDE 0.9% 500 ML IV SCH ×2 (18:38→23:45)
[2021-05-07] MEDS ORDERED: CEFEPIME 1,000 MG in SYRINGE 0 ML IV SCH (20:00)
[2021-05-07] MEDS: LORazepam 0.5 MG TAB SL SCH (21:29)
[2021-05-07] MEDS: TACROLIMUS 1 MG CAP PO SCH (21:29)
[2021-05-07] MEDS: HYDROCORTISONE 10 MG TAB PO SCH (21:29)
[2021-05-07] MEDS: AMITRIPTYLINE HCL 50 MG TAB PO SCH (21:29)
[2021-05-07] MEDS: METOPROLOL TARTRATE 50 MG TAB PO SCH (21:30)
[2021-05-07] MEDS ORDERED: CEFEPIME 2,000 MG/20 ML VIAL ONE (22:19)
[2021-05-07] MEDS: ACETAMINOPHEN 325 MG TAB PO PRN (22:22)
[2021-05-08] MEDS: DOMPERIDONE PO SCH ×5 (00:03→20:04)
--- NOTE | 2021-05-08 02:46 | Consultation Report ---
NEPHROLOGY CONSULTATION NOTE REASON FOR CONSULTATION: Acute renal failure on background CKD in a lung transplant patient. HISTORY OF PRESENT ILLNESS: The patient is a 60-year-old female with bilateral lung transplant in at [facility] with a very complicated course including difficulty weaning off the ventilator, requiring tracheostomy, recurrent pneumonia and multiple other medical complications. Her creatinine at [facility] is hard to pinpoint given multiple acute issues and hospitalizations, but more recently she has vera d slightly abnormal creatinine, even as an outpatient with a creatinine in the 1.4-1.75. She present ed to the hospital earlier today with increasing weakness and shortness of breath. She was found to be influenza A positive, but negative for COVID and negative for RSV. She had acute renal failure wi th a creatinine of 3.68, up from her most recent blood work showing creatinine of 2.28. She did get some IV fluid earlier today, but not now. The [facility] lung transplant center doctor was called earlier by the Emergency Department. She suggested to decrease the tacrolimus to 3 mg every 12 hours seconda ry to poor renal function and to check the trough in the morning. She is currently on 2 L oxygen and doing okay. The patient also had a history of CMV in February 2021 and she is on valganciclovir re meredith adjusted. She is making urine, but unknown amount. ALLERGIES: List reviewed. MEDICATIONS: Home medication list was reviewed in detail and includes Protonix, Valcyte 450 mg daily , hydrocortisone 20 mg as per instructions, Bactrim 1 tablet 2 times a week, tacrolimus 4.5 mg twice daily, everolimus 2 mg twice daily, and multiple other medications. PAST MEDICAL AND SURGICAL HISTORY: Bronchiectasis following lung transplantation, cholesteatoma both middle ears, chronic mastoiditis, COPD, chronic respiratory failure with hypoxia and hypercapnia, ch ronic tympanomastoiditis, encounter for mastoidectomy cavity debridement, history of actinic keratosi s, hypercholesterolemia, paroxysmal AFib, CKD, pulmonary emphysema, pulmonary hypertension, AFib, neva g transplant status, bilateral tonsillectomy. SOCIAL HISTORY: Former smoker for 23 years. Occasional alcohol. She is and lives with her spouse. She uses a continuous walker, oxygen at home. REVIEW OF SYSTEMS: Positive for increasing shortness of breath, cough, weakness. Otherwise, 12 syst ems reviewed and negative. PHYSICAL EXAMINATION: GENERAL: A middle-aged white female, who appears to be chronically ill. She is on oxygen. VITAL SIGNS: Blood pressure is 134/71, pulse rate 96, temperature 36.8, 97% on 3 liters nasal cannul a. CHEST: Bilateral crackles and rhonchi. HEART: S1 and S2, regular. ABDOMEN: Soft, nontender. EXTREMITIES: Show no edema. NEUROLOGIC: She is awake, alert and oriented. LABORATORY TESTS: Shows hemoglobin 7.9, WBC count 4.59, platelet count 211. Sodium 129, potassium 3 .6, BUN 72, creatinine 3.68. Her most recent outpatient blood work from 05/03/2021 showed a creatini ne of 2.28, the one prior to that showed 1.75. She gets labs every week. IMAGING DATA: CT chest and x-ray were reviewed in detail. ASSESSMENT AND PLAN: A 60-year-old female status post lung transplant in 2019 with complicated medic al history. She appears to have worsening kidney function even as an outpatient for the last few wee ks and now has a creatinine of 3 range. Acute renal failure: It appears to be gradually worsening even as an outpatient. At this time, she has ongoing infection. She has known Pseudomonas and post lung transplant bronchiectasis. She is be ing covered with antibiotics to cover that infection. At this point, I would have to say renal failu re is most likely a combination of volume depletion as well as possible acute tubular ischemia/necros is. RECOMMENDATIONS: 1. Continue IV fluid. I would use 100 mL per hour of normal saline for the time being. Check blood work again in the morning. 2. Lower the dose of Prograf as suggested by the transplant department to 3 mg twice daily. I agree with cutting down the dose of Valcyte as per the GFR and holding the Bactrim for now. 3. Continue at least daily labs. 4. We also need UA as well as protein to creatinine ratio. We will continue to follow the patient. Job ID: [id number]
[2021-05-08 08:40] LABS: Basophils # (auto) 0.01 K/uL (0-0.2); Basophils % (auto) 0.5 %; Hematocrit (blood only) 21.9 % (37-47); Hemoglobin 7.4 g/dL (12.0-16.0); Immature Granulocytes # (auto) 0.02 K/uL (0.00-0.02); Lymphocytes # (auto) 0.27 K/uL (1.2-3.4); Lymphocytes % (auto) 13.4 %; Mean Corpuscular Hemoglobin 32.3 pg (25-34); Mean Corpuscular Hgb Conc 33.8 g/dL (32-36); Mean Corpuscular Volume 95.6 fL (80-100); Mean Platelet Volume 9.6 fL (7.4-10.4); Monocytes # (auto) 0.42 K/uL (0.11-0.59); Monocytes % (auto) 20.8 %; Neutrophils % (auto) 64.3 %; Platelet Count 139 K/uL (130-400); RDW Standard Deviation 52.2 fL (36.4-46.3); Red Blood Count 2.29 M/uL (4.2-5.4); White Blood Count 2.02 K/uL (4.8-10.8)
[2021-05-08] MEDS: LORazepam 0.5 MG TAB SL SCH ×2 (08:55→20:14)
[2021-05-08] MEDS: SODIUM CHLORIDE 0.9% 500 ML IV SCH ×2 (08:56→15:01)
[2021-05-08 09:36] LABS: Appearance Urine Clear (Clear); Bilirubin Urine Negative (Negative); Blood Urine Negative (Negative); Color Urine Yellow; Glucose Urine UA Negative (Negative); Ketones Urine Negative (Negative); Leukocyte Esterase Urine Negative (Negative); Nitrite Urine Negative (Negative); Protein Urine Negative (Negative); Specific Gravity Urine 1.009 (1.000-1.030); Urobilinogen Urine Negative (Negative)
[2021-05-08 09:59] LABS: Creatinine Urine Random 61.3 mg/dl; Protein Creatinine Ratio Urine 0.6 (0-0.2); Total Protein Urine Random 34.2 mg/dl (0-11.9)
[2021-05-08 10:03] LABS: BUN Creatinine Ratio 18.7 (10-20); Calcium 9.5 mg/dl (8.5-10.1); Creatinine Clr Calc Pharmacy 14.1 ml/min; Est GFR (African American) 15.8 ml/min; Est GFR (Non-African American) 13.6 ml/min; Potassium 3.9 mmol/L (3.5-5.1)
[2021-05-08 10:08] LABS: Dohle Bodies 2+
[2021-05-08] MEDS: CITALOPRAM 20 MG TAB PO SCH (10:59)
[2021-05-08] MEDS: METOPROLOL TARTRATE 50 MG TAB PO SCH ×2 (10:59→20:13)
[2021-05-08] MEDS: AZITHROMYCIN 250 MG TAB PO SCH (11:00)
[2021-05-08] MEDS: HYDROCORTISONE 10 MG TAB PO SCH ×2 (11:00→20:12)
[2021-05-08] MEDS: PANTOprazole 40 MG TAB PO SCH (11:00)
[2021-05-08] MEDS: TACROLIMUS 1 MG CAP PO SCH ×2 (11:02→20:12)
[2021-05-08] MEDS: OSELTAMIVIR PHOSPHATE SUSP 30 MG/5 ML UDP PO SCH (11:02)
[2021-05-08] MEDS: ACETAMINOPHEN 325 MG TAB PO PRN (11:05)
--- NOTE | 2021-05-08 11:18 | Nephrology Progress Note ---
Date of Service May 08, 2021 Assessment & Plan (1) ROYER (acute kidney injury): Plan: Patient with acute kidney injury likely due to ATN and Prograf toxicity. Creat inine 3.4 today from 3.6 yesterday. -Continue normal saline at 80 mL/h -Follow Prograf levels, pending -Renally dose antibiotics for current GFR (2) Lung transplant status, bilateral: Plan: Continue reduced dose of Prograf 3 mg twice daily. Admission and Anticipated Discharge Date Admission Date: May 07, 2021 Subjective Seen in follow-up for acute kidney injury. He feels better today. No shortness of breath. She is on oxygen nasal cannula. No leg swelling. Review of Systems Review of Systems: All other systems were reviewed and negative except as noted in HPI Physical Exam Physical Exam: General exam: Appears comfortable, no acute distress, on oxygen nasal cannula HEENT: Pupils are equal and reactive to light Neck: No JVD, neck is supple trachea is midline Respiratory system: Clear breath sounds bilaterally. Gastrointestinal: Abdomen is soft, non distended, non tender, bowel sounds are present CVS: Regular rate and rhythm. No murmurs, rubs or gallops Musculoskeletal: No joint or muscle tenderness Extremities: Non tender, no edema, peripheral pulses are present Neuro: Oriented, no tremors, no focal neurological deficits Skin: No rashes Results & Data ([facility]) Vital Signs (Past 12 Hours) Vital Signs Temp Pulse Pulse Resp BP Pulse Ox 05/08/21 08:51 36.4 C L 93 H 20 145/78 H 99 05/08/21 03:49 36.4 C L 81 109/68 93 05/08/21 02:28 103 H 05/07/21 23:33 37.1 C 102 H 132/86 100 Laboratory Results 05/08/21 08:16 05/08/21 08:14 WBC 2.02 L RBC 2.29 L MCV 95.6 MCH 32.3 MCHC 33.8 RDW Std Deviation 52.2 H RDW Coeff of Janina 15.0 H Plt Count 139 MPV 9.6
[2021-05-08] MEDS ORDERED: VALGANCICLOVIR HCL 450 MG TABLET PO SCH (12:00)
[2021-05-08] MEDS: FLUTICASONE/VILANTEROL 200/25MCG 14 PUFFS/INHALER INH SCH (12:04)
[2021-05-08] MEDS: SODIUM CHLORIDE 0.9% 1000ML 1,000 ML IV SCH (15:41)
--- NOTE | 2021-05-08 17:39 | Hospitalist Progress Note ---
Date of Service May 08, 2021 Assessment & Plan (1) Influenza A: (2) Hypoxia: (3) Lung transplant status, bilateral: Plan: Patient is a 60 yr female with H/O Bilateral lung transplant in 2019 at [facility] with complicated course including difficulty weaning off the ventilator requiring tracheostomy, recurrent pneumonia and airway stenosis with stent in right bronchus intermedius, h/o pulmonary hypertension no longer on medications, paroxysmal atrial fibrillation, CKD III, history chronic nausea and vomiting with G-J tube in place with tube feedings, anemia and others listed below presented to ER with c/o weakness x 1 week. SOB past couple of days. +Influenza and COVID vaccinations. Acute on chronic respiratory failure with hypoxia-POA Chronic oxygen dependency:home 1.5-2L oxygen HS Influenza A Mucous plugging Immunocompromise state H/O lung transplant, severe COPD Negative COVID test. Negative RSV. -CT Chest Compared to the previous examination, there is increased small left pleural effusion and left lower lobe atelectasis. Additionally, there is mucous plugging present in left lower lobe bronchiectasis with no confluent alveolar opacity or air bronchogram. There is again evidence of bilateral lung transplantation. Bronchiectasis is also seen involving the right middle lobe and right lower lobe. Cardiomegaly with enlargement of the left main pulmonary artery is again seen characteristic of pulmonary hypertension. --ER physician discussed spoke to [facility] Trans[facility]: [phone]. estimator paperboard boxes was Dr Roberta Reyna: Recommends no need for transfer at this time. Recommends Cefepime with her h/o pseudomonas and renally dosed Tamiflu. Also recommends decreasing tacrolimus to 3mg Q12H secondary to renal functions and checking tacrolimus level. --Tacrolimus level pending (tacrolimus normal 6-8) --Procalcitonin 1.13 --Continue cefepime --Also on chronic suppressive therapy azithromycin, valganciclovir, tacrolimus.Bactrim on hold(takes on Mondays, ) --Continue oseltamivir --Blood cultures pending --Pulmonary hygiene with vest, flutter --Continue supplemental oxygen as needed --Consider pulmonology evaluation if needed --Tacrolimus dose decreased to 3 mg twice daily given ROYER Monitor renal function Continue home inhalers and albuterol nebulizers (4) ROYER (acute kidney injury): Plan: ROYER on CKD III Baseline Cr: 1.4-1.9 Likely ATN and Prograf toxicity Creatinine 3.4 Continue IV fluids as per nephrology Appreciate nephrology input Prograf level pending (5) Hyponatremia: Plan: Corrected Na of 130 on presentation Sodium 135 today Monitor H/O Pulmonary hypertension H/O chronic intermittent nausea and vomiting/suspected delayed gastric emptying Has G-J-tube in place. History of it being repositioned 02/2021 Continue domperidone, Elavil Start tube feeds H/O Paroxysmal Atrial Fibrillation Previously on Amiodarone Continue metoprolol tartrate Anemia of chronic disease Baseline 8-9 No obvious signs of bleeding Monitor CBC Hemoglobin drop partly dilutional secondary to IV fluids DVT PX: SCDs for now CODE STATUS Full Code Disposition PT OT prior to discharge May need 2 step prior to discharge Admission and Anticipated Discharge Date Admission Date: May 07, 2021 Subjective Patient is seen and examined at bedside Desaturates easily with exertion/ambulation States having dyspnea on exertion Reports nausea but no vomiting Had rhinitis Currently on 3 L supplemental oxygen Offers no other complaints Review of Systems Review of Systems: All systems reviewed & are unremarkable except as noted in Subjective Physical Exam Physical Exam: Physical Exam: Vitals signs as noted above General Appearance: Thin, chronically ill appearing Head: normocephalic, Atraumatic Eyes: normal inspection, EOMI Neck: supple, Trachea midline Respiratory/Chest: Coarse breath sounds, + B/L Rhonchi Cardiovascular: S1, S2, No murmur Abdomen/GI:Soft, Non tender, + PEG tube, Bowel sounds present Extremities/Musculoskeletal:normal inspection, no edema Neurologic/Psych:AAOX3, grossly no focal neurological deficits Skin: normal color, warm Results & Data Results & Data ([facility]) Vital Signs (Past 12 Hours) Vital Signs Temp Pulse Pulse Resp BP Pulse Ox 05/08/21 15:15 36.6 C 72 19 149/81 H 100 05/08/21 15:00 71 05/08/21 11:17 37.0 C 100 H 16 150/83 H 100 05/08/21 08:51 36.4 C L 93 H 20 145/78 H 99 05/08/21 06:00 93 H Laboratory Results Short CBC 05/08/21 Range/Units 08:14 WBC 2.02 L (4.8-10.8) K/uL Hgb 7.4 L (12.0-16.0) g/dL Hct 21.9 L (37-47) % Plt Count 139 (130-400) K/uL BMP 05/08/21 08:16 Sodium 135 L Potassium 3.9 Chloride 105 Carbon Dioxide 19 L BUN 64 H Creatinine 3.42 H Glucose 130 H Calcium 9.5 Urine 05/08/21 Range/Units 09:16 Urine Color Yellow Urine Appearance Clear (Clear) Urine pH 5.0 (4.5-7.5) Ur Specific [place] 1.009 (1.000-1.030) Urine Protein Negative (Negative) Urine Glucose (UA) Negative (Negative)
[2021-05-08] MEDS: CEFEPIME 500 MG in SYRINGE 0 ML IV SCH (20:01)
[2021-05-08] MEDS: EVEROLIMUS PO SCH (20:05)
[2021-05-08] MEDS: AMITRIPTYLINE HCL 50 MG TAB PO SCH (20:13)
[2021-05-09] MEDS: SODIUM CHLORIDE 0.9% 1000ML 1,000 ML IV SCH ×2 (03:44→16:50)
[2021-05-09] MEDS: ACETAMINOPHEN 325 MG TAB PO PRN ×2 (07:30→12:37)
[2021-05-09] MEDS: METOPROLOL TARTRATE 50 MG TAB PO SCH ×2 (07:31→20:07)
[2021-05-09] MEDS: LORazepam 0.5 MG TAB SL SCH ×2 (07:31→20:08)
[2021-05-09] MEDS: DOMPERIDONE PO SCH ×4 (07:32→20:08)
[2021-05-09] MEDS: EVEROLIMUS PO SCH ×2 (07:32→20:08)
[2021-05-09] MEDS: HYDROCORTISONE 10 MG TAB PO SCH ×2 (07:34→20:07)
[2021-05-09] MEDS: TACROLIMUS 1 MG CAP PO SCH ×2 (07:34→20:03)
[2021-05-09] MEDS: OSELTAMIVIR PHOSPHATE SUSP 30 MG/5 ML UDP PO SCH (07:34)
[2021-05-09 07:48] LABS: Hematocrit (blood only) 19.9 % (37-47); Hemoglobin 6.4 g/dL (12.0-16.0); Mean Corpuscular Hemoglobin 31.1 pg (25-34); Mean Corpuscular Hgb Conc 32.2 g/dL (32-36); Mean Corpuscular Volume 96.6 fL (80-100); Mean Platelet Volume 9.4 fL (7.4-10.4); Platelet Count 124 K/uL (130-400); RDW Coefficient of Variation 14.9 % (11.5-14.5); RDW Standard Deviation 53.3 fL (36.4-46.3); Red Blood Count 2.06 M/uL (4.2-5.4); White Blood Count 1.15 K/uL (4.8-10.8)
[2021-05-09] MEDS ORDERED: SODIUM CHLORIDE 0.9% 250 ML IV PRN (07:56)
[2021-05-09 08:19] LABS: Basophils # (auto) 0.02 K/uL (0-0.2); Basophils % (auto) 1.7 %; Dohle Bodies 2+; Immature Granulocytes # (auto) 0.01 K/uL (0.00-0.02); Immature Granulocytes % (auto) 0.9 %; Lymphocytes # (auto) 0.28 K/uL (1.2-3.4); Lymphocytes % (auto) 24.3 %; Monocytes # (auto) 0.25 K/uL (0.11-0.59); Monocytes % (auto) 21.7 %; Neutrophils # (auto) 0.59 K/uL (1.4-6.5); Neutrophils % (auto) 51.4 %; Spherocytes 1+
[2021-05-09 08:24] LABS: BUN Creatinine Ratio 19.9 (10-20); Calcium 9.2 mg/dl (8.5-10.1); Creatinine Clr Calc Pharmacy 17.9 ml/min; Est GFR (Non-African American) 18.2 ml/min
--- NOTE | 2021-05-09 08:39 | XRay Report ---
XR chest 1V portable CLINICAL HISTORY: Mucous Plug, Influenza. Lung transplant. COMPARISON STUDY: Chest radiograph and chest CT May 07, 2021. FINDINGS: Postoperative findings within the chest are noted. There is a stent within the right mainst em bronchus. No pneumothorax is present. Small left and trace right pleural effusions are unchanged. There is persistent left basilar opacity. There is persistent interstitial thickening within the lung s. Cardiomediastinal silhouette is stable. Appearance of the chest is unchanged. There are multiple o ld bilateral rib fractures. IMPRESSION: 1. No significant change in appearance of the chest. Persistent left basilar airspace opacity and int erstitial thickening within the remainder of the lungs. 2. Small left and trace right pleural effusions. ACT 112: Negative or not required by law. Electronically signed by: Albin Rojo M.D. 05/09/2021 8:38 AM
[2021-05-09 09:22] LABS: Ferritin 2878.9 ng/ml (8-388)
[2021-05-09 09:23] LABS: Reticulocyte % < 0.5 % (0.5-2.0); Reticulocytes # < 0.02 10^6/uL (0.02-0.10)
[2021-05-09 09:49] LABS: Folate (Folic Acid) > 20.00 ng/ml (>5.38); Vitamin B12 > 2000 pg/ml (193-986)
[2021-05-09] MEDS: FLUTICASONE/VILANTEROL 200/25MCG 14 PUFFS/INHALER INH SCH (10:00)
--- NOTE | 2021-05-09 11:13 | Nephrology Progress Note ---
Date of Service May 09, 2021 Assessment & Plan (1) ROYER (acute kidney injury): Plan: Patient with acute kidney injury likely due to ATN and Prograf toxicity. Creat inine 2.7 from 3.4 yesterday. -Continue normal saline at 80 mL/h -Follow Prograf levels, pending -Renally dose antibiotics for current GFR (2) Lung transplant status, bilateral: Plan: Continue reduced dose of Prograf 3 mg twice daily. Patient is pancytopenic and may need hematology evaluation Admission and Anticipated Discharge Date Admission Date: May 07, 2021 Subjective Seen in follow-up for acute kidney injury. No shortness of breath. Main complaint is weakness. She is making urine and creatinine downtrending. Review of Systems Review of Systems: All other systems were reviewed and negative except as noted in HPI Physical Exam Physical Exam: General exam: Appears comfortable, no acute distress, on oxygen nasal cannula HEENT: Pupils are equal and reactive to light Neck: No JVD, neck is supple trachea is midline Respiratory system: Clear breath sounds bilaterally. Gastrointestinal: Abdomen is soft, non distended, non tender, bowel sounds are present CVS: Regular rate and rhythm. No murmurs, rubs or gallops Musculoskeletal: No joint or muscle tenderness Extremities: Non tender, no edema, peripheral pulses are present Neuro: Oriented, no tremors, no focal neurological deficits Skin: No rashes Results & Data ([facility]) Vital Signs (Past 12 Hours) Vital Signs Temp Pulse Pulse Resp BP BP Pulse Ox 05/09/21 10:14 36.4 C L 70 16 138/85 100 05/09/21 10:08 36.5 C 71 16 127/78 05/09/21 09:56 36.6 C 64 16 123/75 05/09/21 07:39 36.7 C 79 20 123/77 100 05/09/21 03:43 36.8 C 104 H 14 152/80 H 100 05/09/21 00:28 80 05/09/21 00:09 36.7 C 84 20 135/79 100 Laboratory Results 05/09/21 07:09 05/09/21 07:09 WBC 1.15 L RBC 2.06 L MCV 96.6 MCH 31.1 MCHC 32.2 RDW Std Deviation 53.3 H RDW Coeff of Janina 14.9 H Plt Count 124 L MPV 9.4
[2021-05-09] MEDS: CITALOPRAM 20 MG TAB PO SCH (11:22)
[2021-05-09] MEDS: AZITHROMYCIN 250 MG TAB PO SCH (11:22)
[2021-05-09] MEDS: PANTOprazole 40 MG TAB PO SCH (11:22)
--- NOTE | 2021-05-09 18:15 | Hospitalist Progress Note ---
Date of Service May 09, 2021 Assessment & Plan (1) Influenza A: (2) Hypoxia: (3) Lung transplant status, bilateral: Plan: Patient is a 60 yr female with H/O Bilateral lung transplant in 2019 at [facility] with complicated course including difficulty weaning off the ventilator requiring tracheostomy, recurrent pneumonia and airway stenosis with stent in right bronchus intermedius, h/o pulmonary hypertension no longer on medications, paroxysmal atrial fibrillation, CKD III, history chronic nausea and vomiting with G-J tube in place with tube feedings, anemia and others listed below presented to ER with c/o weakness x 1 week. SOB past couple of days. +Influenza and COVID vaccinations. Acute on chronic respiratory failure with hypoxia-POA Chronic oxygen dependency:home 1.5-2L oxygen HS Influenza A Mucous plugging Immunocompromise state H/O lung transplant, severe COPD Negative COVID test. Negative RSV. -CT Chest Compared to the previous examination, there is increased small left pleural effusion and left lower lobe atelectasis. Additionally, there is mucous plugging present in left lower lobe bronchiectasis with no confluent alveolar opacity or air bronchogram. There is again evidence of bilateral lung transplantation. Bronchiectasis is also seen involving the right middle lobe and right lower lobe. Cardiomegaly with enlargement of the left main pulmonary artery is again seen characteristic of pulmonary hypertension. --ER physician discussed spoke to [facility] Transplant [facility]: [phone]. mail caller was Dr Roberta Reyna: Recommends no need for transfer at this time. Recommends Cefepime with her h/o pseudomonas and renally dosed Tamiflu. Also recommends decreasing tacrolimus to 3mg Q12H secondary to renal functions and checking tacrolimus level. --Tacrolimus level pending (tacrolimus normal 6-8) --Procalcitonin 1.13 --Continue cefepime --Also on chronic suppressive therapy azithromycin, valganciclovir, tacrolimus.Bactrim on hold(takes on Mondays, ) --Continue oseltamivir --Blood cultures negative to date --Pulmonary hygiene with vest, flutter --Consider pulmonology evaluation if needed --Tacrolimus dose decreased to 3 mg twice daily given ROYER Monitor renal function Continue home inhalers and albuterol nebulizers Chest x-ray remains unchanged Currently saturating well on 2 L supplemental oxygen Pancytopenia Neutropenia Likely multifactorial Neutropenic precautions Monitor CBC Transfuse PRBCs as needed Anemia work-up reviewed Check fecal occult Peripheral smear pending (4) ROYER (acute kidney injury): Plan: ROYER on CKD III Baseline Cr: 1.4-1.9 Likely ATN and Prograf toxicity Creatinine 3.4>>2.7 Continue IV fluids as per nephrology Appreciate nephrology input Prograf level pending (5) Hyponatremia: Plan: Corrected Na of 130 on presentation Sodium 140 today Monitor H/O Pulmonary hypertension H/O chronic intermittent nausea and vomiting/suspected delayed gastric emptying Has G-J-tube in place. History of it being repositioned 02/2021 Continue domperidone, Elavil Continue tube feeds H/O Paroxysmal Atrial Fibrillation Previously on Amiodarone Continue metoprolol tartrate Anemia of chronic disease Baseline 8-9 No obvious signs of bleeding Hb drop partly dilutional secondary to IV fluids Management as above DVT PX: SCDs for now CODE STATUS Full Code Disposition PT OT prior to discharge May need 2 step prior to discharge Admission and Anticipated Discharge Date Admission Date: May 07, 2021 Subjective Patient is seen and examined at bedside States feeling better today Less dyspnea but has nonexpectorant cough Denies any bleeding issues Hemoglobin dropped to 6.4 today Renal function improving Saturating well on 2 L supplemental oxygen Review of Systems Review of Systems: All systems reviewed & are unremarkable except as noted in Subjective Physical Exam Physical Exam: Physical Exam: Vitals signs as noted above General Appearance: Thin, chronically ill appearing Head: normocephalic, Atraumatic Eyes: normal inspection, EOMI Neck: supple, Trachea midline Respiratory/Chest: Coarse breath sounds, + B/L Rhonchi Cardiovascular: S1, S2, No murmur Abdomen/GI:Soft, Non tender, + PEG tube, Bowel sounds present Extremities/Musculoskeletal:normal inspection, no edema Neurologic/Psych:AAOX3, grossly no focal neurological deficits Skin: normal color, warm Results & Data Results & Data ([facility]) Vital Signs (Past 12 Hours) Vital Signs Temp Pulse Pulse Resp BP BP Pulse Ox 05/09/21 16:50 36.5 C 79 18 149/85 H 99 05/09/21 16:13 36.5 C 78 17 163/84 H 100 05/09/21 15:32 36.9 C 76 16 145/75 H 100 05/09/21 15:13 36.5 C 76 18 145/79 H 100 05/09/21 15:00 72 05/09/21 14:43 36.5 C 79 17 140/64 100 05/09/21 14:28 36.6 C 70 18 134/81 99 05/09/21 14:05 36.7 C 67 17 132/77 100 05/09/21 13:33 36.5 C 72 17 107/76 100 05/09/21 12:59 36.5 C 71 14 136/81 100 05/09/21 12:03 36.8 C 74 18 157/82 H 99 05/09/21 11:59 36.6 C 71 18 148/87 H 100 05/09/21 10:59 36.7 C 67 18 146/74 H 100 05/09/21 10:29 36.8 C 67 17 144/80 H 100 05/09/21 10:14 36.4 C L 70 16 138/85 100 05/09/21 10:08 36.5 C 71 16 127/78 05/09/21 09:56 36.6 C 64 16 123/75 05/09/21 07:39 36.7 C 79 20 123/77 100 05/09/21 06:30 76 Laboratory Results Short CBC 05/09/21 Range/Units 07:09 WBC 1.15 L (4.8-10.8) K/uL Hgb 6.4 L* (12.0-16.0) g/dL Hct 19.9 L* (37-47) % Plt Count 124 L (130-400) K/uL BMP 05/09/21 07:09 Sodium 140 Potassium 4.0 Chloride 110 H Carbon Dioxide 22 BUN 54 H Creatinine 2.70 H D Glucose 100 H Calcium 9.2
[2021-05-09 18:39] LABS: Hematocrit (blood only) 30.4 % (37-47)
[2021-05-09] MEDS: CEFEPIME 500 MG in SYRINGE 0 ML IV SCH (20:01)
[2021-05-09] MEDS: AMITRIPTYLINE HCL 50 MG TAB PO SCH (20:08)
[2021-05-10 01:11] LABS: Hematocrit (blood only) 29.2 % (37-47); Hemoglobin 9.6 g/dL (12.0-16.0)
[2021-05-10] MEDS: SODIUM CHLORIDE 0.9% 1000ML 1,000 ML IV SCH ×2 (03:15→15:44)
[2021-05-10] MEDS: DOMPERIDONE PO SCH ×4 (08:03→20:28)
[2021-05-10] MEDS: FLUTICASONE/VILANTEROL 200/25MCG 14 PUFFS/INHALER INH SCH (08:04)
[2021-05-10] MEDS: EVEROLIMUS PO SCH ×2 (08:04→20:27)
[2021-05-10] MEDS: METOPROLOL TARTRATE 50 MG TAB PO SCH ×2 (08:05→20:27)
[2021-05-10] MEDS: TACROLIMUS 1 MG CAP PO SCH ×2 (08:06→20:25)
[2021-05-10] MEDS: HYDROCORTISONE 10 MG TAB PO SCH ×2 (08:07→20:24)
[2021-05-10] MEDS: OSELTAMIVIR PHOSPHATE SUSP 30 MG/5 ML UDP PO SCH (08:07)
[2021-05-10] MEDS: LORazepam 0.5 MG TAB SL SCH ×2 (08:12→20:24)
[2021-05-10 08:38] LABS: Hematocrit (blood only) 31.9 % (37-47); Hemoglobin 10.6 g/dL (12.0-16.0); Mean Corpuscular Hemoglobin 29.4 pg (25-34); Mean Corpuscular Hgb Conc 33.2 g/dL (32-36); Mean Corpuscular Volume 88.6 fL (80-100); Mean Platelet Volume 9.4 fL (7.4-10.4); Platelet Count 145 K/uL (130-400); RDW Coefficient of Variation 19.8 % (11.5-14.5); RDW Standard Deviation 64.5 fL (36.4-46.3); White Blood Count 1.35 K/uL (4.8-10.8)
[2021-05-10] MEDS ORDERED: VALGANCICLOVIR HCL 450 MG TABLET PO SCH (09:00)
[2021-05-10 09:08] LABS: Basophils # (auto) 0.02 K/uL (0-0.2); Basophils % (auto) 1.5 %; Immature Granulocytes # (auto) 0.06 K/uL (0.00-0.02); Immature Granulocytes % (auto) 4.4 %; Lymphocytes # (auto) 0.33 K/uL (1.2-3.4); Lymphocytes % (auto) 24.4 %; Monocytes # (auto) 0.29 K/uL (0.11-0.59); Monocytes % (auto) 21.5 %; Neutrophils # (auto) 0.65 K/uL (1.4-6.5); Neutrophils % (auto) 48.2 %; Poikilocytosis Present
[2021-05-10 09:16] LABS: Est GFR (African American) 27.7 ml/min; Potassium 3.5 mmol/L (3.5-5.1)
[2021-05-10 09:17] LABS: BUN Creatinine Ratio 20.9 (10-20); Calcium 9.3 mg/dl (8.5-10.1); Creatinine Clr Calc Pharmacy 22.4 ml/min; Est GFR (Non-African American) 23.9 ml/min
[2021-05-10] MEDS: AZITHROMYCIN 250 MG TAB PO SCH (11:08)
[2021-05-10] MEDS: PANTOprazole 40 MG TAB PO SCH (11:08)
[2021-05-10] MEDS: CITALOPRAM 20 MG TAB PO SCH (11:09)
[2021-05-10] MEDS: ACETAMINOPHEN 325 MG TAB PO PRN (15:43)
--- NOTE | 2021-05-10 17:36 | Nephrology Progress Note ---
Date of Service May 10, 2021 Assessment & Plan (1) ROYER (acute kidney injury): Plan: improving nonoliguric acute kidney injury on CKD from ATN and Prograf toxicity. Creatinine 2.2 from 2.7 yesterday. mild hyperchloremia emerging, lower K. baseline creatinine most recently 1.4-1.8 -changed NS to 1/2 NS w/ 20 mEq/L K at 80 mL/h -daily bmp -Follow Prograf levels, pending -to resume OP valganciclovir (2X weekly dose) after one day delay - reasonable given her renal function -bactrim on hold >> ENSURE TXPLT TEAM ok with this -Renally dose antibiotics for current GFR -offer TF HS if not already doing so (2) Lung transplant status, bilateral: Plan: Continue reduced dose of Prograf 3 mg twice daily; ok'd w/ txplt. also on everolimus (no renal dose adjustment needed); to resume valcyte. >>>Patient is pancytopenic and may need hematology evaluation (smear pending) Admission and Anticipated Discharge Date Admission Date: May 07, 2021 Subjective breathing at baseline; struggling to take po but working on it. no n/v. no new/worrisome voiding sx Review of Systems Review of Systems: All systems reviewed & are unremarkable except as noted in Subjective Physical Exam Constitutional: well developed, well nourished and cooperative; no acute distress Eyes: EOM intact bilaterally ENMT: Ears: no external ear abnormality Nose: no external nose abnormality Mouth: + dry oral mucous membranes Neck: no nuchal rigidity Respiratory: normal respiratory effort Auscultation: + diminished lung sounds (coarse lung sounds) Cardiovascular: RRR, no murmur, no edema Gastrointestinal (Abdomen): Inspection/Auscultation: normal bowel sounds Percussion/Palpation: abdomen soft; abdomen nontender feeding tube present Musculoskeletal: Extremities: strength 5/5 throughout Skin: no rashes, warm and dry Neurologic: dumont, fluent speech, no tremor Psychiatric: A+Ox3, euthymic affect Results & Data ([facility]) Vital Signs (Past 12 Hours) Vital Signs Temp Pulse Pulse Resp BP Pulse Ox 05/10/21 15:46 37.2 C 87 22 157/76 H 93 05/10/21 14:55 90 05/10/21 12:26 37.4 C 79 20 147/78 H 92 05/10/21 07:32 81 05/10/21 07:01 36.6 C 102 H 19 120/73 91 Laboratory Results 05/10/21 08:08 05/10/21 08:08
[2021-05-10 18:03] LABS: SARS CoV2 RNA(COVID-19) InHosp NEGATIVE (Negative)
[2021-05-10] MEDS: SODIUM CHLOR 0.45% + 20MEQ KCL 20 MEQ/1,000 ML BAG IV SCH (18:56)
--- NOTE | 2021-05-10 19:18 | Hospitalist Progress Note ---
Date of Service May 10, 2021 Assessment & Plan (1) Influenza A: (2) Hypoxia: (3) Lung transplant status, bilateral: Plan: Patient is a 60 yr female with H/O Bilateral lung transplant in [address] [facility] with complicated course including difficulty weaning off the ventilator requiring tracheostomy, recurrent pneumonia and airway stenosis with stent in right bronchus intermedius, h/o pulmonary hypertension no longer on medications, paroxysmal atrial fibrillation, CKD III, history chronic nausea and vomiting with G-J tube in place with tube feedings, anemia and others listed below presented to ER with c/o weakness x 1 week. SOB past couple of days. +Influenza and COVID vaccinations. Acute on chronic respiratory failure with hypoxia-POA Chronic oxygen dependency:home 1.5-2L oxygen HS Influenza A Mucous plugging Immunocompromise state H/O lung transplant, severe COPD Negative COVID test. Negative RSV. -CT Chest Compared to the previous examination, there is increased small left pleural effusion and left lower lobe atelectasis. Additionally, there is mucous plugging present in left lower lobe bronchiectasis with no confluent alveolar opacity or air bronchogram. There is again evidence of bilateral lung transplantation. Bronchiectasis is also seen involving the right middle lobe and right lower lobe. Cardiomegaly with enlargement of the left main pulmonary artery is again seen characteristic of pulmonary hypertension. --ER physician discussed spoke to [facility] Trans[facility]: [phone]. will call clerk was Dr Roberta Reyna: Recommends no need for transfer at this time. Recommends Cefepime with her h/o pseudomonas and renally dosed Tamiflu. Also recommends decreasing tacrolimus to 3mg Q12H secondary to renal functions and checking tacrolimus level. --Tacrolimus level pending (tacrolimus normal 6-8) --Procalcitonin 1.13 --Continue cefepime --Also on chronic suppressive therapy azithromycin, valganciclovir, tacrolimus.Bactrim on hold(takes on Mondays, ) --Continue oseltamivir --Blood cultures negative to date --Pulmonary hygiene with vest, flutter --Consider pulmonology evaluation if needed --Tacrolimus dose decreased to 3 mg twice daily given ROYER Monitor renal function Continue home inhalers and albuterol nebulizers Slowly improving Currently saturating on room air Pancytopenia Neutropenia Likely multifactorial Neutropenic precautions Transfuse PRBCs as needed Anemia work-up reviewed fecal occult negative Peripheral smear not suggestive of myelodysplasia, autoimmune or microangiopathic hemolytic anemia Cytopenia slowly improving Monitor CBC (4) ROYER (acute kidney injury): Plan: ROYER on CKD III Baseline Cr: 1.4-1.9 Likely ATN and Prograf toxicity Creatinine 3.4>>2.7>2.15 Continue IV fluids as per nephrology Appreciate nephrology input Prograf level pending (5) Hyponatremia: Plan: Corrected Na of 130 on presentation Sodium 139 today Monitor H/O Pulmonary hypertension H/O chronic intermittent nausea and vomiting/suspected delayed gastric emptying Has G-J-tube in place. History of it being repositioned 02/2021 Continue domperidone, Elavil Continue tube feeds H/O Paroxysmal Atrial Fibrillation Previously on Amiodarone Continue metoprolol tartrate Anemia of chronic disease Baseline 8-9 No obvious signs of bleeding Hb drop partly dilutional secondary to IV fluids Management as above DVT PX: SCDs for now CODE STATUS Full Code Disposition PT OT prior to discharge May need 2 step prior to discharge Admission and Anticipated Discharge Date Admission Date: May 07, 2021 Subjective Patient is seen and examined at bedside Continues to improve slowly No new complaints Dyspnea, cough improving as well Saturating low 90s on Room Air Review of Systems Review of Systems: All systems reviewed & are unremarkable except as noted in Subjective Physical Exam Physical Exam: Physical Exam: Vitals signs as noted above General Appearance: Thin, chronically ill appearing Head: normocephalic, Atraumatic Eyes: normal inspection, EOMI Neck: supple, Trachea midline Respiratory/Chest: Coarse breath sounds Cardiovascular: S1, S2, No murmur Abdomen/GI:Soft, Non tender, + PEG tube, Bowel sounds present Extremities/Musculoskeletal:normal inspection, no edema Neurologic/Psych:AAOX3, grossly no focal neurological deficits Skin: normal color, warm Results & Data Results & Data ([facility]) Vital Signs (Past 12 Hours) Vital Signs Temp Pulse Pulse Resp BP Pulse Ox 05/10/21 18:45 37.0 C 89 20 162/97 H 94 05/10/21 15:46 37.2 C 87 22 157/76 H 93 05/10/21 14:55 90 05/10/21 12:26 37.4 C 79 20 147/78 H 92 05/10/21 07:32 81 Laboratory Results Short CBC 05/10/21 05/10/2105/10/21 Range/Units 00:34 08:08 08:08 WBC 1.35 L (4.8-10.8) K/uL Hgb 9.6 L 10.6 L Cancelled (12.0-16.0) g/dL Hct 29.2 L 31.9 L Cancelled (37-47) % Plt Count 145 (130-400) K/uL BMP 05/10/21 08:08 Sodium 139 Potassium 3.5 Chloride 109 H Carbon Dioxide 21 BUN 45 H Creatinine 2.15 H D Glucose 102 H Calcium 9.3
[2021-05-10] MEDS ORDERED: NOVASOURCE RENAL 2.0 CAL 1000ML BAG PEG SCH (20:00)
[2021-05-10] MEDS: CEFEPIME 500 MG in SYRINGE 0 ML IV SCH (20:24)
[2021-05-10] MEDS: AMITRIPTYLINE HCL 50 MG TAB PO SCH (20:25)
[2021-05-10] MEDS: TUBE FEEDING WATER FLUSH PEG SCH (21:48)
[2021-05-11] MEDS: TUBE FEEDING WATER FLUSH PEG SCH (05:57)
[2021-05-11] MEDS: SODIUM CHLOR 0.45% + 20MEQ KCL 20 MEQ/1,000 ML BAG IV SCH ×2 (05:58→16:07)
[2021-05-11 07:24] LABS: Hematocrit (blood only) 33.2 % (37-47); Hemoglobin 11.1 g/dL (12.0-16.0); Mean Corpuscular Hemoglobin 29.4 pg (25-34); Mean Corpuscular Hgb Conc 33.4 g/dL (32-36); Mean Corpuscular Volume 87.8 fL (80-100); Mean Platelet Volume 9.7 fL (7.4-10.4); Platelet Count 137 K/uL (130-400); RDW Coefficient of Variation 19.3 % (11.5-14.5); Red Blood Count 3.78 M/uL (4.2-5.4); White Blood Count 1.53 K/uL (4.8-10.8)
[2021-05-11 07:50] LABS: BUN Creatinine Ratio 23.6 (10-20); Calcium 8.7 mg/dl (8.5-10.1); Creatinine Clr Calc Pharmacy 25.9 ml/min; Est GFR (Non-African American) 28.5 ml/min; Potassium 3.6 mmol/L (3.5-5.1)
[2021-05-11 07:51] LABS: Phosphorus 2.5 mg/dl (2.5-4.9)
[2021-05-11] MEDS: DOMPERIDONE PO SCH ×4 (08:00→21:18)
[2021-05-11] MEDS: EVEROLIMUS PO SCH ×2 (08:01→21:18)
[2021-05-11] MEDS: FLUTICASONE/VILANTEROL 200/25MCG 14 PUFFS/INHALER INH SCH (08:02)
[2021-05-11] MEDS: METOPROLOL TARTRATE 50 MG TAB PO SCH ×2 (08:04→21:17)
[2021-05-11] MEDS: HYDROCORTISONE 10 MG TAB PO SCH ×2 (08:04→21:17)
[2021-05-11] MEDS: TACROLIMUS 1 MG CAP PO SCH ×2 (08:04→21:17)
[2021-05-11] MEDS: LORazepam 0.5 MG TAB SL SCH ×2 (08:09→21:19)
[2021-05-11 08:43] LABS: Basophils # (auto) 0.01 K/uL (0-0.2); Basophils % (auto) 0.7 %; Immature Granulocytes # (auto) 0.02 K/uL (0.00-0.02); Immature Granulocytes % (auto) 1.3 %; Lymphocytes # (auto) 0.33 K/uL (1.2-3.4); Lymphocytes % (auto) 21.6 %; Monocytes # (auto) 0.39 K/uL (0.11-0.59); Monocytes % (auto) 25.5 %; Neutrophils # (auto) 0.78 K/uL (1.4-6.5); Neutrophils % (auto) 50.9 %
[2021-05-11] MEDS ORDERED: VALGANCICLOVIR HCL 450 MG TABLET PO SCH (09:00)
[2021-05-11] MEDS: OSELTAMIVIR PHOSPHATE SUSP 30 MG/5 ML UDP PO SCH (09:01)
--- NOTE | 2021-05-11 09:42 | Nephrology Progress Note ---
Date of Service May 11, 2021 Assessment & Plan (1) ROYER (acute kidney injury): Plan: improving/nearly resolved nonoliguric acute kidney injury on CKD3B from ATN and Prograf toxicity. Creatinine 1.9 from 2.2 yesterday. mild hyperchloremia emerging, lower K. baseline creatinine most recently 1.4-1.8 -continue 1/2 NS w/ 20 mEq/L K at 80 mL/h; would not wean unless she becomes sob/hypoxic or if creat at lower limit of her range of function -daily bmp -Follow Prograf levels, pending -to resume OP valganciclovir (2X weekly dose) after one day delay - reasonable given her renal function -appreciated changes Dr Steiner reviewed after d/w txplt team; bactrim for now to remain on hold -Renally dose antibiotics for current GFR Will sign off; pls call if further ? >>do recommend CKD clinic follow up 2-4 wks after d/c w/ any [place] or [place] provider (2) Lung transplant status, bilateral: Plan: Continue reduced dose of Prograf 3 mg twice daily; ok'd w/ txplt. also on everolimus (no renal dose adjustment needed); to resume valcyte. -appreciate update from Dr Steiner of his d/w txplt team today >>>Patient is pancytopenic and profoundly neutropneic >> recommend at least d/w hematology; may need neupogen, though she is slowly rebounding; path smear reviewed, no new findings Admission and Anticipated Discharge Date Admission Date: May 07, 2021 Subjective no interval clinical events. feels her bowels are moving well and breathing at baseline. tolerating TF Review of Systems Review of Systems: All systems reviewed & are unremarkable except as noted in Subjective Physical Exam Constitutional: well developed, well nourished and cooperative; no acute distress Eyes: EOM intact bilaterally ENMT: Ears: no external ear abnormality Nose: no external nose abnormality Mouth: + dry oral mucous membranes Neck: no nuchal rigidity Respiratory: normal respiratory effort Auscultation: + diminished lung sounds (coarse lung sounds) Cardiovascular: RRR, no murmur, no edema Gastrointestinal (Abdomen): Inspection/Auscultation: normal bowel sounds Percussion/Palpation: abdomen soft; abdomen nontender Musculoskeletal: Extremities: strength 5/5 throughout Skin: no rashes, warm and dry Psychiatric: A+Ox3, euthymic affect Results & Data ([facility]) Vital Signs (Past 12 Hours) Vital Signs Temp Pulse Pulse Resp BP Pulse Ox 05/11/21 07:52 37.0 C 87 24 143/88 H 95 05/11/21 03:58 36.9 C 96 H 24 132/78 92 05/11/21 00:08 73 05/10/21 22:35 36.7 C 88 18 105/73 93 Laboratory Results 05/11/21 06:56 05/11/21 06:56
[2021-05-11] MEDS: CITALOPRAM 20 MG TAB PO SCH (11:15)
[2021-05-11] MEDS: PANTOprazole 40 MG TAB PO SCH (11:15)
[2021-05-11] MEDS: AZITHROMYCIN 250 MG TAB PO SCH (11:15)
[2021-05-11] MEDS: ACETAMINOPHEN 325 MG TAB PO PRN (11:39)
[2021-05-11] MEDS ORDERED: ENTERAL FEEDING PEG SCH (16:30)
[2021-05-11] MEDS ORDERED: Nursing to Pharmacy Communication SCH (16:30)
--- NOTE | 2021-05-11 18:05 | Hospitalist Progress Note ---
Date of Service May 11, 2021 Assessment & Plan (1) Influenza A: (2) Hypoxia: (3) Lung transplant status, bilateral: Plan: Patient is a 60 yr female with H/O Bilateral lung transplant in 2019 at [facility] with complicated course including difficulty weaning off the ventilator requiring tracheostomy, recurrent pneumonia and airway stenosis with stent in right bronchus intermedius, h/o pulmonary hypertension no longer on medications, paroxysmal atrial fibrillation, CKD III, history chronic nausea and vomiting with G-J tube in place with tube feedings, anemia and others listed below presented to ER with c/o weakness x 1 week. SOB past couple of days. +Influenza and COVID vaccinations. Acute on chronic respiratory failure with hypoxia-POA Chronic oxygen dependency:home 1.5-2L oxygen HS Influenza A Mucous plugging Immunocompromise state H/O lung transplant, severe COPD Negative COVID test. Negative RSV. -CT Chest Compared to the previous examination, there is increased small left pleural effusion and left lower lobe atelectasis. Additionally, there is mucous plugging present in left lower lobe bronchiectasis with no confluent alveolar opacity or air bronchogram. There is again evidence of bilateral lung transplantation. Bronchiectasis is also seen involving the right middle lobe and right lower lobe. Cardiomegaly with enlargement of the left main pulmonary artery is again seen characteristic of pulmonary hypertension. --ER physician discussed spoke to [facility] Transplant Center: [phone]. call center consultant was Dr Roberta Reyna: Recommends no need for transfer at this time. Recommends Cefepime with her h/o pseudomonas and renally dosed Tamiflu. Also recommends decreasing tacrolimus to 3mg Q12H secondary to renal functions and checking tacrolimus level. --Tacrolimus level 20.3 --Procalcitonin 1.13 --Continue cefepime --Also on chronic suppressive therapy azithromycin, valganciclovir, tacrolimus.Bactrim on hold(takes on Mondays, ) --Continue oseltamivir --Blood cultures negative to date --Pulmonary hygiene with vest, flutter --Consider pulmonology evaluation if needed --Tacrolimus dose decreased to 3 mg twice daily given ROYER Monitor renal function Continue home inhalers and albuterol nebulizers Currently saturating on room air Clinically improved PT/OT eval Discussed with [facility] Transplant center Dr. Primitivo Haley: Continue tacrolimus 3 mg twice daily for now given renal function normalized Repeat tacrolimus, everolimus levels. Given history of Pseudomonas, check sputum culture Continue IV cefepime to complete 10 to 14-day course unless sputum culture returns negative. If sputum culture remains negative, can transition IV cefepime to cefuroxime 5 mg twice daily to complete 10 to 14-day course Okay to hold Bactrim for 2 weeks Needs follow-up with [facility] in 1 week upon discharge with repeat CBC Pancytopenia Neutropenia Likely multifactorial Neutropenic precautions Transfuse PRBCs as needed Anemia work-up reviewed fecal occult negative Peripheral smear not suggestive of myelodysplasia, autoimmune or microangiopathic hemolytic anemia Cytopenia slowly improving Monitor CBC (4) ROYER (acute kidney injury): Plan: ROYER on CKD III Baseline Cr: 1.4-1.9 Likely ATN and tacrolimus toxicity Creatinine 3.4>>2.7>2.15>1.86 Continue IV fluids as per nephrology Appreciate nephrology input (5) Hyponatremia: Plan: Corrected Na of 130 on presentation Sodium 135 today Monitor H/O Pulmonary hypertension H/O chronic intermittent nausea and vomiting/suspected delayed gastric emptying Has G-J-tube in place. History of it being repositioned 02/2021 Continue domperidone, Elavil Continue tube feeds H/O Paroxysmal Atrial Fibrillation Previously on Amiodarone Continue metoprolol tartrate Anemia of chronic disease Baseline 8-9 No obvious signs of bleeding Hb drop partly dilutional secondary to IV fluids Management as above DVT PX: SCDs for now CODE STATUS Full Code Disposition PT OT prior to discharge May need 2 step prior to discharge Admission and Anticipated Discharge Date Admission Date: May 07, 2021 Subjective Patient is seen and examined at bedside States feeling better today Discussed with nephrology today Also discussed with [facility] transfer center Patient denies any dyspnea today Cough much improved Offers no other complaints Saturating well on room Review of Systems Review of Systems: All systems reviewed & are unremarkable except as noted in Subjective Physical Exam Physical Exam: Physical Exam: Vitals signs as noted above General Appearance: Thin, chronically ill appearing Head: normocephalic, Atraumatic Eyes: normal inspection, EOMI Neck: supple, Trachea midline Respiratory/Chest: Coarse breath sounds Cardiovascular: S1, S2, No murmur Abdomen/GI:Soft, Non tender, + PEG tube, Bowel sounds present Extremities/Musculoskeletal:normal inspection, no edema Neurologic/Psych:AAOX3, grossly no focal neurological deficits Skin: normal color, warm Results & Data Results & Data ([facility]) Vital Signs (Past 12 Hours) Vital Signs Temp Pulse Pulse Resp BP Pulse Ox 05/11/21 15:34 80 05/11/21 15:22 37.2 C 89 21 149/87 H 96 05/11/21 11:19 36.6 C 76 21 149/91 H 94 05/11/21 07:52 37.0 C 87 24 143/88 H 95 Laboratory Results Short CBC 05/11/21 Range/Units 06:56 WBC 1.53 L (4.8-10.8) K/uL Hgb 11.1 L (12.0-16.0) g/dL Hct 33.2 L (37-47) % Plt Count 137 (130-400) K/uL BMP 05/11/21 06:56 Sodium 135 L Potassium 3.6 Chloride 105 Carbon Dioxide 24 BUN 44 H Creatinine 1.86 H Glucose 160 H Calcium 8.7
[2021-05-11] MEDS: AMITRIPTYLINE HCL 50 MG TAB PO SCH (21:17)
[2021-05-11] MEDS: CEFEPIME 500 MG in SYRINGE 0 ML IV SCH (21:17)
[2021-05-11] MEDS: ENTERAL FEEDING PEG SCH (21:18)
[2021-05-12] MEDS: SODIUM CHLOR 0.45% + 20MEQ KCL 20 MEQ/1,000 ML BAG IV SCH (04:23)
[2021-05-12 06:38] LABS: Hematocrit (blood only) 30.4 % (37-47); Hemoglobin 10.3 g/dL (12.0-16.0); Mean Corpuscular Hemoglobin 30.4 pg (25-34); Mean Corpuscular Hgb Conc 33.9 g/dL (32-36); Mean Corpuscular Volume 89.7 fL (80-100); Mean Platelet Volume 9.7 fL (7.4-10.4); Platelet Count 118 K/uL (130-400); RDW Standard Deviation 62.5 fL (36.4-46.3); Red Blood Count 3.39 M/uL (4.2-5.4); White Blood Count 1.73 K/uL (4.8-10.8)
[2021-05-12 07:03] LABS: Basophils # (auto) 0.02 K/uL (0-0.2); Basophils % (auto) 1.2 %; Dohle Bodies 1+; Immature Granulocytes # (auto) 0.02 K/uL (0.00-0.02); Immature Granulocytes % (auto) 1.2 %; Lymphocytes # (auto) 0.42 K/uL (1.2-3.4); Lymphocytes % (auto) 24.3 %; Monocytes # (auto) 0.29 K/uL (0.11-0.59); Monocytes % (auto) 16.8 %; Neutrophils # (auto) 0.98 K/uL (1.4-6.5); Neutrophils % (auto) 56.5 %
[2021-05-12 07:22] LABS: BUN Creatinine Ratio 28.5 (10-20); Blood Urea Nitrogen 46 mg/dl (7-18); Calcium 8.3 mg/dl (8.5-10.1); Carbon Dioxide 24 mmol/L (21-32); Chloride 105 mmol/L (98-107); Creatinine Clr Calc Pharmacy 29.8 ml/min; Est GFR (Non-African American) 33.7 ml/min; Glucose 168 mg/dl (70-99); Phosphorus 2.2 mg/dl (2.5-4.9); Sodium 136 mmol/L (136-145)
[2021-05-12] MEDS: DOMPERIDONE PO SCH ×4 (07:54→20:44)
[2021-05-12] MEDS: [UNRECOGNIZED DRUG - REMARK] SCH (07:54)
[2021-05-12] MEDS: EVEROLIMUS PO SCH ×2 (07:54→20:45)
[2021-05-12] MEDS: OSELTAMIVIR PHOSPHATE SUSP 30 MG/5 ML UDP PO SCH (07:55)
[2021-05-12] MEDS: HYDROCORTISONE 10 MG TAB PO SCH ×2 (07:56→20:44)
[2021-05-12] MEDS: FLUTICASONE/VILANTEROL 200/25MCG 14 PUFFS/INHALER INH SCH (07:56)
[2021-05-12] MEDS: METOPROLOL TARTRATE 50 MG TAB PO SCH ×2 (07:56→20:44)
[2021-05-12] MEDS: TACROLIMUS 1 MG CAP PO SCH ×2 (07:56→20:44)
[2021-05-12] MEDS: LORazepam 0.5 MG TAB SL SCH ×2 (07:58→20:44)
[2021-05-12] MEDS: AZITHROMYCIN 250 MG TAB PO SCH (11:27)
[2021-05-12] MEDS: PANTOprazole 40 MG TAB PO SCH (11:27)
[2021-05-12] MEDS: CITALOPRAM 20 MG TAB PO SCH (11:27)
--- NOTE | 2021-05-12 14:42 | Nephrology Progress Note ---
Date of Service May 12, 2021 Assessment & Plan (1) ROYER (acute kidney injury): Plan: resolved nonoliguric acute kidney injury on CKD3B from ATN and Prograf toxicit y. Creatinine 1.6 from 1.9 yesterday. hyperchloremia better; could not report K today for some reason. baseline creatinine most recently 1.4-1.8 -stopped IVF d/t wheezing, breathing; CXR if worsens -daily bmp -Follow Prograf levels, pending -valganciclovir (2X weekly dose) reasonable given her renal function -appreciated changes Dr Steiner reviewed after d/w txplt team; bactrim for now to remain on hold -Renally dose antibiotics for current GFR Will sign off; pls call if further ? >>do recommend CKD clinic follow up 2-4 wks after d/c w/ any [place] or [place] provider -weekly bmp after d/c to be ordered by neph provider (2) Lung transplant status, bilateral: Plan: Continue reduced dose of Prograf 3 mg twice daily; ok'd w/ txplt. also on everolimus (no renal dose adjustment needed); to resume valcyte. -appreciate update from Dr Steiner of his d/w txplt team today >>>Patient is pancytopenic and profoundly neutropneic >> slowly rebounding Admission and Anticipated Discharge Date Admission Date: May 07, 2021 Subjective no interval events. does tell me she has occasional midsternal nonradiating tightness /dyspnea w/ exertion Review of Systems Review of Systems: All systems reviewed & are unremarkable except as noted in Subjective Physical Exam Constitutional: well developed, well nourished and cooperative; no acute di stress Eyes: EOM intact bilaterally ENMT: Ears: no external ear abnormality Nose: no external nose abnormality Mouth: + dry oral mucous membranes Neck: no nuchal rigidity Respiratory: normal respiratory effort Auscultation: + diminished lung sounds (coarse lung sounds) and + wheezes (scattered expiratory) Cardiovascular: RRR, no murmur, no edema Gastrointestinal (Abdomen): Inspection/Auscultation: normal bowel sounds Percussion/Palpation: abdomen soft; abdomen nontender feeding tube present Musculoskeletal: Extremities: strength 5/5 throughout Skin: no rashes, warm and dry Psychiatric: A+Ox3, euthymic affect Results & Data ([facility]) Vital Signs (Past 12 Hours) Vital Signs Temp Pulse Pulse Pulse Resp BP BP 05/12/21 11:17 37.3 C 82 18 145/86 H 05/12/21 08:14 81 16 05/12/21 08:00 87 05/12/21 07:42 37 C 84 18 149/84 H 05/12/21 05:46 37.2 C 85 16 129/82 Pulse Ox 05/12/21 11:17 95 05/12/21 08:14 94 05/12/21 08:00 05/12/21 07:42 95 05/12/21 05:46 93 Laboratory Results 05/12/21 06:12 05/12/21 06:12
--- NOTE | 2021-05-12 16:35 | Hospitalist Progress Note ---
Date of Service May 12, 2021 Assessment & Plan (1) Influenza A: (2) Hypoxia: (3) Lung transplant status, bilateral: Plan: Patient is a 60 yr female with H/O Bilateral lung transplant in 2019 at [facility] with complicated course including difficulty weaning off the ventilator requiring tracheostomy, recurrent pneumonia and airway stenosis with stent in right bronchus intermedius, h/o pulmonary hypertension no longer on medications, paroxysmal atrial fibrillation, CKD III, history chronic nausea and vomiting with G-J tube in place with tube feedings, anemia and others listed below presented to ER with c/o weakness x 1 week. SOB past couple of days. +Influenza and COVID vaccinations. Acute on chronic respiratory failure with hypoxia-POA Chronic oxygen dependency:home 1.5-2L oxygen HS Influenza A Mucous plugging Immunocompromise state H/O lung transplant, severe COPD Negative COVID test. Negative RSV. -CT Chest Compared to the previous examination, there is increased small left pleural effusion and left lower lobe atelectasis. Additionally, there is mucous plugging present in left lower lobe bronchiectasis with no confluent alveolar opacity or air bronchogram. There is again evidence of bilateral lung transplantation. Bronchiectasis is also seen involving the right middle lobe and right lower lobe. Cardiomegaly with enlargement of the left main pulmonary artery is again seen characteristic of pulmonary hypertension. --ER physician discussed spoke to [facility] Transplant Center: [phone]. square dance caller was Dr Roberta Reyna: Recommends no need for transfer at this time. Recommends Cefepime with her h/o pseudomonas and renally dosed Tamiflu. Also recommends decreasing tacrolimus to 3mg Q12H secondary to renal functions and checking tacrolimus level. --Tacrolimus level 20.3 --Procalcitonin 1.13 --Continue cefepime --Also on chronic suppressive therapy azithromycin, valganciclovir, tacrolimus.Bactrim on hold(takes on Mondays, ) --Continue oseltamivir --Blood cultures negative to date --Pulmonary hygiene with vest, flutter --Consider pulmonology evaluation if needed --Tacrolimus dose decreased to 3 mg twice daily given ROYER Monitor renal function Continue home inhalers and albuterol nebulizers Currently saturating on room air Clinically improved PT/OT eval Discussed with [facility] Transplant center Dr. Primitivo Haley: Continue tacrolimus 3 mg twice daily for now given renal function normalized Repeat tacrolimus, everolimus levels. Given history of Pseudomonas, check sputum culture Continue IV cefepime to complete 10 to 14-day course unless sputum culture returns negative. If sputum culture remains negative, can transition IV cefepime to cefuroxime 5 mg twice daily to complete 10 to 14-day course Okay to hold Bactrim for 2 weeks Needs follow-up with [facility] in 1 week upon discharge with repeat CBC Pancytopenia Neutropenia Likely multifactorial Neutropenic precautions Transfuse PRBCs as needed Anemia work-up reviewed fecal occult negative Peripheral smear not suggestive of myelodysplasia, autoimmune or microangiopathic hemolytic anemia Cytopenia slowly improving Monitor CBC (4) ROYER (acute kidney injury): Plan: ROYER on CKD III Baseline Cr: 1.4-1.9 Likely ATN and tacrolimus toxicity Creatinine 3.4>>2.7>2.15>1.86 > 1.6 Continue IV fluids as per nephrology Appreciate nephrology input (5) Hyponatremia: Plan: Corrected Na of 130 on presentation Sodium 136 today Monitor H/O Pulmonary hypertension H/O chronic intermittent nausea and vomiting/suspected delayed gastric emptying Has G-J-tube in place. History of it being repositioned 02/2021 Continue domperidone, Elavil Continue tube feeds H/O Paroxysmal Atrial Fibrillation Previously on Amiodarone Continue metoprolol tartrate Anemia of chronic disease Baseline 8-9 No obvious signs of bleeding Hb drop partly dilutional secondary to IV fluids Management as above DVT PX: SCDs for now CODE STATUS: Full Code Disposition PT OT prior to discharge May need 2 step prior to discharge Admission and Anticipated Discharge Date Admission Date: May 07, 2021 Subjective Patient is seen in follow-up of influenza A, history of lung transplant Patient is currently sitting up in bed, in no acute distress, on room air States feeling better but still not breathing normally Not able to give sputum sample Nephrology has been following Cr down to 1.6 Previous provider discussed with [facility] transfer center yesterday Denies fevers, chills, abdominal pain, n/v Review of Systems Review of Systems: All systems reviewed & are unremarkable except as noted in Subjective Physical Exam Physical Exam: General Appearance: Thin, chronically ill appearing Head: normocephalic, Atraumatic Eyes: normal inspection, EOMI Neck: supple, Trachea midline Respiratory/Chest: + diffuse rhonchi Cardiovascular: S1, S2, No murmur Abdomen/GI:Soft, Non tender, + PEG tube, Bowel sounds present Extremities/Musculoskeletal:normal inspection, no edema Neurologic/Psych:AAOX3, speech fluent, moves extremities Skin: normal color, warm Results & Data Results & Data ([facility]) Vital Signs (Past 12 Hours) Vital Signs Temp Pulse Pulse Pulse Resp BP BP 05/12/21 15:00 37.1 C 84 16 128/80 05/12/21 11:17 37.3 C 82 18 145/86 H 05/12/21 08:14 81 16 05/12/21 08:00 87 05/12/21 07:42 37 C 84 18 149/84 H 05/12/21 05:46 37.2 C 85 16 129/82 Pulse Ox 05/12/21 15:00 94 05/12/21 11:17 95 05/12/21 08:14 94 05/12/21 08:00 05/12/21 07:42 95 05/12/21 05:46 93 Laboratory Results 05/12/21 05/12/21 Range/Units 06:12 06:12 WBC 1.73 L (4.8-10.8) K/uL RBC 3.39 L (4.2-5.4) M/uL Hgb 10.3 L (12.0-16.0) g/dL Hct 30.4 L (37-47) % MCV 89.7 (80-100) fL MCH 30.4 (25-34) pg MCHC 33.9 (32-36) g/dL RDW Std Deviation 62.5 H (36.4-46.3) fL RDW Coeff of Janina 19.0 H (11.5-14.5) % Plt Count 118 L (130-400) K/uL MPV 9.7 (7.4-10.4) fL Immature Gran % (Auto) 1.2 % Neut % (Auto) 56.5 % Lymph % (Auto) 24.3 % [place] % (Auto) 16.8 % Eos % (Auto) 0.0 % Baso % (Auto) 1.2 % Neut # (Auto) 0.98 L* (1.4-6.5) K/uL Lymph # (Auto) 0.42 L (1.2-3.4) K/uL [place] # (Auto) 0.29 (0.11-0.59) K/uL Eos # (Auto) 0.00 (0-0.5) K/uL Baso # (Auto) 0.02 (0-0.2) K/uL Immature Gran # (Auto) 0.02 (0.00-0.02) K/uL Dohle Bodies 1+ Sodium 136 (136-145) mmol/L Potassium TNP Chloride 105 (98-107) mmol/L Carbon Dioxide 24 (21-32) mmol/L Anion Gap 7.0 (3-11) BUN 46 H (7-18) mg/dl Creatinine 1.62 H (0.6-1.2) mg/dl Est Cr Clr Drug Dosing 29.8 ml/min Est GFR ( Amer) 39.0 ml/min Est GFR (Non-Af Amer) 33.7 ml/min BUN/Creatinine Ratio 28.5 H (10-20) Glucose 168 H (70-99) mg/dl Calcium 8.3 L (8.5-10.1) mg/dl Phosphorus 2.2 L (2.5-4.9) mg/dl Magnesium TNP Medications Administered Current Inpatient Medications Acetaminophen (Acetaminophen 325 Mg Tab) 650 mg PO Q4H PRN PRN Reason: Pain or Fever Stop: 06/06/21 17:46 Last Admin: 05/11/21 11:39 Dose: 650 mg Documented by: Albuterol (Albuterol 0.083% Nebu Soln 3 Ml Vial) 2.5 mg INH Q4H PRN PRN Reason: Shortness Of Breath Stop: 06/06/21 17:46 Last Admin: 05/12/21 08:14 Dose: 2.5 mg Documented by: Amitriptyline HCl (Amitriptyline Hcl 50 Mg Tab) 50 mg PO HS [facility] Stop: 06/06/21 20:59 Last Admin: 05/11/21 21:17 Dose: 50 mg Documented by: Azithromycin (Azithromycin 250 Mg Tab) 250 mg PO DAILY@1200 [facility] Stop: 06/07/21 11:59 Last Admin: 05/12/21 11:27 Dose: 250 mg Documented by: Citalopram Hydrobromide (Citalopram 20 Mg Tab) 10 mg PO DAILY@1200 [facility] Stop: 06/07/21 11:59 Last Admin: 05/12/21 11:27 Dose: 10 mg Documented by: Everolimus (*Everolimus* Patient Own Med) 4 ea PO Q12 [facility] Stop: 06/07/21 20:59 Last Admin: 05/12/21 07:54 Dose: 4 ea Documented by: Fluticasone/Vilanterol (Fluticasone/Vilanterol 200/25mcg 14 Puffs/Inhaler) 1 puffs INH QAM [facility] Stop: 06/07/21 08:59 Last Admin: 05/12/21 07:56 Dose: 1 puffs Documented by: Hydrocortisone (Hydrocortisone 10 Mg Tab) 20 mg PO QAM [facility] Stop: 06/07/21 08:59 Last Admin: 05/12/21 07:56 Dose: 20 mg Documented by: Hydrocortisone (Hydrocortisone 10 Mg Tab) 10 mg PO PM [facility] Stop: 06/06/21 20:59 Last Admin: 05/11/21 21:17 Dose: 10 mg Documented by: Cefepime HCl 500 mg/ Syringe 5.65 mls @ 5.5 mls/min IV DAILY@1999 [facility]; Protocol Stop: 05/14/21 19:59 Last Admin: 05/11/21 21:17 Dose: 5.5 mls/min Documented by: Lorazepam (Lorazepam 0.5 Mg Tab) 0.5 mg SL BID [facility] Stop: 06/06/21 20:59 Last Admin: 05/12/21 07:58 Dose: 0.5 mg Documented by: Metoprolol Tartrate (Metoprolol Tartrate 50 Mg Tab) 50 mg PO BID [facility] Stop: 06/06/21 20:59 Last Admin: 05/12/21 07:56 Dose: 50 mg Documented by: Miscellaneous (Stop Order [Pt Own Tube Feed]) 1 ea N/A DAILY@0700 [facility] Stop: 06/11/21 06:59 Last Admin: 05/12/21 07:54 Dose: 1 ea Documented by: Domperidone: Non- Formulary Patient's Own Med 1 ea PO ACHS [facility] Stop: 06/07/21 00:00 Last Admin: 05/12/21 15:46 Dose: 2 tab Documented by: Nutritional Formula (Patient's Own Enteral Feeding [Nephro]) 1 ml PEG DAILY@1999 [facility] Stop: 06/10/21 16:29 Last Admin: 05/11/21 21:18 Dose: 1 ml Documented by: Oseltamivir Phosphate (Oseltamivir Phosphate Susp 30 Mg/5 Ml Udp) 30 mg PO DAILY [facility]; Protocol Stop: 05/13/21 08:59 Last Admin: 05/12/21 07:55 Dose: 30 mg Documented by: Pantoprazole Sodium (Pantoprazole 40 Mg Tab) 40 mg PO DAILY@1200 [facility] Stop: 06/07/21 11:59 Last Admin: 05/12/21 11:27 Dose: 40 mg Documented by: Prochlorperazine (Prochlorperazine Maleate 10 Mg Tab) 10 mg PO BID PRN PRN Reason: Nausea And Vomiting Stop: 06/06/21 17:46 Sennosides (Senna 8.6 Mg Tab) 8.6 mg PO HS PRN PRN Reason: Constipation Stop: 06/06/21 17:46 Tacrolimus (Tacrolimus 1 Mg Cap) 3 mg PO BID [facility] Stop: 06/06/21 20:59 Last Admin: 05/12/21 07:56 Dose: 3 mg Documented by: Valganciclovir (Valganciclovir Hcl 450 Mg Tablet) 450 mg PO Q2D@0900 [facility]; Protocol Stop: 06/12/21 08:59
[2021-05-12] MEDS: CEFEPIME 500 MG in SYRINGE 0 ML IV SCH (19:45)
[2021-05-12] MEDS: AMITRIPTYLINE HCL 50 MG TAB PO SCH (20:44)
[2021-05-12] MEDS: ENTERAL FEEDING PEG SCH (20:45)
[2021-05-13] MEDS: [UNRECOGNIZED DRUG - REMARK] SCH (06:26)
[2021-05-13 06:40] LABS: Hematocrit (blood only) 30.2 % (37-47); Hemoglobin 9.8 g/dL (12.0-16.0); Mean Corpuscular Hemoglobin 29.3 pg (25-34); Mean Corpuscular Hgb Conc 32.5 g/dL (32-36); Mean Corpuscular Volume 90.4 fL (80-100); RDW Standard Deviation 62.9 fL (36.4-46.3); Red Blood Count 3.34 M/uL (4.2-5.4); White Blood Count 1.49 K/uL (4.8-10.8)
[2021-05-13 07:15] LABS: Mean Platelet Volume 9.3 fL (7.4-10.4); Platelet Count 97 K/uL (130-400)
[2021-05-13 07:16] LABS: Platelet Estimate Decreased (Normal)
[2021-05-13 07:36] LABS: BUN Creatinine Ratio 30.4 (10-20); Creatinine Clr Calc Pharmacy 31.1 ml/min; Est GFR (African American) 41.2 ml/min; Est GFR (Non-African American) 35.5 ml/min; Magnesium 1.6 mg/dl (1.8-2.4)
[2021-05-13 07:37] LABS: Phosphorus 2.6 mg/dl (2.5-4.9)
[2021-05-13] MEDS: LORazepam 0.5 MG TAB SL SCH ×2 (08:20→20:42)
[2021-05-13] MEDS: VALGANCICLOVIR HCL 450 MG TABLET PO SCH (08:21)
[2021-05-13] MEDS: TACROLIMUS 1 MG CAP PO SCH ×2 (08:21→20:41)
[2021-05-13] MEDS: HYDROCORTISONE 10 MG TAB PO SCH ×2 (08:21→20:42)
[2021-05-13] MEDS: EVEROLIMUS PO SCH ×2 (08:22→20:43)
[2021-05-13] MEDS: DOMPERIDONE PO SCH ×4 (08:22→20:42)
[2021-05-13] MEDS: METOPROLOL TARTRATE 50 MG TAB PO SCH ×2 (08:23→20:42)
[2021-05-13] MEDS: FLUTICASONE/VILANTEROL 200/25MCG 14 PUFFS/INHALER INH SCH (08:23)
[2021-05-13 08:38] LABS: Potassium 4.2 mmol/L (3.5-5.1)
[2021-05-13] MEDS: MAGNESIUM OXIDE 400 MG TAB PO SCH ×2 (09:34→20:42)
[2021-05-13] MEDS: AZITHROMYCIN 250 MG TAB PO SCH (11:18)
[2021-05-13] MEDS: PANTOprazole 40 MG TAB PO SCH (11:18)
[2021-05-13] MEDS: CITALOPRAM 20 MG TAB PO SCH (11:18)
--- NOTE | 2021-05-13 16:44 | Hospitalist Progress Note ---
Date of Service May 13, 2021 Assessment & Plan (1) Influenza A: (2) Hypoxia: (3) Lung transplant status, bilateral: Plan: 60 yo F with H/O Bilateral lung transplant in 2020 at [facility] with complicated course including difficulty weaning off the ventilator requiring tracheostomy, recurrent pneumonia and airway stenosis with stent in right bronchus intermedius, h/o pulmonary hypertension no longer on medications, paroxysmal Afib, CKD III, history chronic nausea and vomiting with G-J tube in place with tube feedings, anemia and others listed below presented to ER with c/o weakness x 1 week. SOB past couple of days. +Influenza and COVID vaccinations. Acute on chronic respiratory failure with hypoxia-POA Chronic oxygen dependency:home 1.5-2L oxygen HS Influenza A Mucous plugging Immunocompromised state H/O lung transplant, severe COPD Negative COVID test. Negative RSV. -CT Chest Compared to the previous examination, there is increased small left pleural effusion and left lower lobe atelectasis. Additionally, there is mucous plugging present in left lower lobe bronchiectasis with no confluent alveolar opacity or air bronchogram. There is again evidence of bilateral lung transplantation. Bronchiectasis is also seen involving the right middle lobe and right lower lobe. Cardiomegaly with enlargement of the left main pulmonary artery is again seen characteristic of pulmonary hypertension. --ER physician discussed spoke to [facility] Transplant Center: [phone]. call center receptionist was Dr Roberta Reyna: Recommends no need for transfer at this time. Recommends Cefepime with her h/o pseudomonas and renally dosed Tamiflu. Also recommends decreasing tacrolimus to 3mg Q12H secondary to renal functions and checking tacrolimus level. --Tacrolimus level 20.3 --Procalcitonin 1.13 --Continue cefepime --Also on chronic suppressive therapy azithromycin, valganciclovir, tacrolimus.Bactrim on hold(takes on Mondays, ) --Continue oseltamivir --Blood cultures negative to date --Pulmonary hygiene with vest, flutter --Consider pulmonology evaluation if needed --Tacrolimus dose decreased to 3 mg twice daily given ROYER Monitor renal function Continue home inhalers and albuterol nebulizers Currently saturating on room air vs. 2L Clinically improved PT/OT eval Discussed with [facility] Transplant center Dr. Primitivo Haley: Continue tacrolimus 3 mg twice daily for now given renal function normalized Repeat tacrolimus, everolimus levels. Given history of Pseudomonas, check sputum culture Continue IV cefepime to complete 10 to 14-day course unless sputum culture returns negative. If sputum culture remains negative, can transition IV cefepime to cefuroxime 5 mg twice daily to complete 10 to 14-day course Okay to hold Bactrim for 2 weeks Needs follow-up with [facility] in 1 week upon discharge with repeat CBC Pancytopenia Neutropenia Likely multifactorial Neutropenic precautions Transfuse PRBCs as needed Anemia work-up reviewed fecal occult negative Peripheral smear not suggestive of myelodysplasia, autoimmune or microangiopathic hemolytic anemia Cytopenia slowly improving Monitor CBC (4) ROYER (acute kidney injury): Plan: ROYER on CKD III Baseline Cr: 1.4-1.9 Likely ATN and tacrolimus toxicity Creatinine 3.4>>2.7>2.15>1.86 > 1.6 Continue IV fluids as per nephrology Appreciate nephrology input (5) Hyponatremia: Plan: Corrected Na of 130 on presentation Sodium 136 today Monitor H/O Pulmonary hypertension H/O chronic intermittent nausea and vomiting/suspected delayed gastric emptying Has G-J-tube in place. History of it being repositioned 02/2021 Continue domperidone, Elavil Continue tube feeds H/O Paroxysmal Atrial Fibrillation Previously on Amiodarone Continue metoprolol tartrate Anemia of chronic disease Baseline 8-9 No obvious signs of bleeding Hb drop partly dilutional secondary to IV fluids Management as above DVT PX: SCDs for now CODE STATUS: Full Code Disposition PT OT prior to discharge May need 2 step prior to discharge Admission and Anticipated Discharge Date Admission Date: May 07, 2021 Subjective Patient is seen in follow-up of influenza A, history of lung transplant Patient is currently sitting up in chair, watching TV, in no acute distress States feeling better was able to give sputum sample, but very difficult for her Nephrology has been following Cr down to 1.6 Previous provider discussed with [facility] transfer center Denies fevers, chills, abdominal pain, n/v Review of Systems Review of Systems: All systems reviewed & are unremarkable except as noted in Subjective Physical Exam Physical Exam: General Appearance: Thin, chronically ill appearing Head: normocephalic, Atraumatic Eyes: normal inspection, EOMI Neck: supple, Trachea midline Respiratory/Chest: + diffuse rhonchi, improved air movement Cardiovascular: S1, S2, No murmur Abdomen/GI:Soft, Non tender, + PEG tube, Bowel sounds present Extremities/Musculoskeletal:normal inspection, no edema Neurologic/Psych:AAOX3, speech fluent, moves extremities Skin: normal color, warm Results & Data Results & Data ([facility]) Vital Signs (Past 12 Hours) Vital Signs Temp Pulse Pulse Resp BP Pulse Ox 05/13/21 16:13 37 C 80 18 155/93 H 95 05/13/21 15:09 80 05/13/21 12:10 36.5 C 65 18 129/69 95 05/13/21 08:00 83 05/13/21 07:55 36.4 C L 87 20 143/77 H 97 Laboratory Results 05/13/21 05/13/21 05/11/21 Range/Units 06:11 06:11 11:54 WBC 1.49 L (4.8-10.8) K/uL RBC 3.34 L (4.2-5.4) M/uL Hgb 9.8 L (12.0-16.0) g/dL Hct 30.2 L (37-47) % MCV 90.4 (80-100) fL MCH 29.3 (25-34) pg MCHC 32.5 (32-36) g/dL RDW Std Deviation 62.9 H (36.4-46.3) fL RDW Coeff of Janina 19.0 H (11.5-14.5) % Plt Count 97 L (130-400) K/uL MPV 9.3 (7.4-10.4) fL Platelet Estimate Decreased L (Normal) Sodium 136 (136-145) mmol/L Potassium 4.2 D (3.5-5.1) mmol/L Chloride 104 (98-107) mmol/L Carbon Dioxide 26 (21-32) mmol/L Anion Gap 6.0 (3-11) BUN 47 H (7-18) mg/dl Creatinine 1.55 H (0.6-1.2) mg/dl Est Cr Clr Drug Dosing 31.1 ml/min Est GFR ( Amer) 41.2 ml/min Est GFR (Non-Af Amer) 35.5 ml/min BUN/Creatinine Ratio 30.4 H (10-20) Glucose 150 H (70-99) mg/dl Calcium 9.0 (8.5-10.1) mg/dl Phosphorus 2.6 (2.5-4.9) mg/dl Magnesium 1.6 L (1.8-2.4) mg/dl Everolimus 17.6 (see note) ng/mL Tacrolimus mcg/L 05/11/21 Range/Units 11:54 WBC (4.8-10.8) K/uL RBC (4.2-5.4) M/uL Hgb (12.0-16.0) g/dL Hct (37-47) % MCV (80-100) fL MCH (25-34) pg MCHC (32-36) g/dL RDW Std Deviation (36.4-46.3) fL RDW Coeff of Janina (11.5-14.5) % Plt Count (130-400) K/uL MPV (7.4-10.4) fL Platelet Estimate (Normal) Sodium (136-145) mmol/L Potassium (3.5-5.1) mmol/L Chloride (98-107) mmol/L Carbon Dioxide (21-32) mmol/L Anion Gap (3-11) BUN (7-18) mg/dl Creatinine (0.6-1.2) mg/dl Est Cr Clr Drug Dosing ml/min Est GFR ( Amer) ml/min Est GFR (Non-Af Amer) ml/min BUN/Creatinine Ratio (10-20) Glucose (70-99) mg/dl Calcium (8.5-10.1) mg/dl Phosphorus (2.5-4.9) mg/dl Magnesium (1.8-2.4) mg/dl Everolimus (see note) ng/mL Tacrolimus 24.2 H mcg/L Medications Administered Current Inpatient Medications Acetaminophen (Acetaminophen 325 Mg Tab) 650 mg PO Q4H PRN PRN Reason: Pain or Fever Stop: 06/06/21 17:46 Last Admin: 05/11/21 11:39 Dose: 650 mg Documented by: Albuterol (Albuterol 0.083% Nebu Soln 3 Ml Vial) 2.5 mg INH Q4H PRN PRN Reason: Shortness Of Breath Stop: 06/06/21 17:46 Last Admin: 05/12/21 08:14 Dose: 2.5 mg Documented by: Amitriptyline HCl (Amitriptyline Hcl 50 Mg Tab) 50 mg PO HS [facility] Stop: 06/06/21 20:59 Last Admin: 05/12/21 20:44 Dose: 50 mg Documented by: Azithromycin (Azithromycin 250 Mg Tab) 250 mg PO DAILY@1200 [facility] Stop: 06/07/21 11:59 Last Admin: 05/13/21 11:18 Dose: 250 mg Documented by: Citalopram Hydrobromide (Citalopram 20 Mg Tab) 10 mg PO DAILY@1200 [facility] Stop: 06/07/21 11:59 Last Admin: 05/13/21 11:18 Dose: 10 mg Documented by: Everolimus (*Everolimus* Patient Own Med) 4 ea PO Q12 [facility] Stop: 06/07/21 20:59 Last Admin: 05/13/21 08:22 Dose: 4 ea Documented by: Fluticasone/Vilanterol (Fluticasone/Vilanterol 200/25mcg 14 Puffs/Inhaler) [facility]: 06/07/21 08:59 Last Admin: 05/13/21 08:23 Dose: 1 puffs Documented by: Hydrocortisone (Hydrocortisone 10 Mg Tab) 20 mg PO QAM [facility] Stop: 06/07/21 08:59 Last Admin: 05/13/21 08:21 Dose: 20 mg Documented by: Hydrocortisone (Hydrocortisone 10 Mg Tab) 10 mg PO PM [facility] Stop: 06/06/21 20:59 Last Admin: 05/12/21 20:44 Dose: 10 mg Documented by: Cefepime HCl 500 mg/ Syringe 5.65 mls @ 5.5 mls/min IV DAILY@2000 [facility]; Protocol Stop: 05/14/21 19:59 Last Admin: 05/12/21 19:45 Dose: 5.5 mls/min Documented by: Lorazepam (Lorazepam 0.5 Mg Tab) 0.5 mg SL BID [facility] Stop: 06/06/21 20:59 Last Admin: 05/13/21 08:20 Dose: 0.5 mg Documented by: Magnesium Oxide (Magnesium Oxide 400 Mg Tab) 400 mg PO BID [facility] Stop: 06/12/21 08:59 Last Admin: 05/13/21 09:34 Dose: 400 mg Documented by: Metoprolol Tartrate (Metoprolol Tartrate 50 Mg Tab) 50 mg PO BID [facility] Stop: 06/06/21 20:59 Last Admin: 05/13/21 08:23 Dose: 50 mg Documented by: Miscellaneous (Stop Order [Pt Own Tube Feed]) 1 ea N/A DAILY@0700 [facility] Stop: 06/11/21 06:59 Last Admin: 05/13/21 06:26 Dose: 1 ea Documented by: Domperidone: Non- Formulary Patient's Own Med 1 ea PO ACHS [facility] Stop: 06/07/21 00:00 Last Admin: 05/13/21 16:37 Dose: 2 tab Documented by: Nutritional Formula (Patient's Own Enteral Feeding [Nephro]) 1 ml PEG DAILY@2000 [facility] Stop: 06/10/21 16:29 Last Admin: 05/12/21 20:45 Dose: 1 ml Documented by: Pantoprazole Sodium (Pantoprazole 40 Mg Tab) 40 mg PO DAILY@1200 [facility] Stop: 06/07/21 11:59 Last Admin: 05/13/21 11:18 Dose: 40 mg Documented by: Prochlorperazine (Prochlorperazine Maleate 10 Mg Tab) 10 mg PO BID PRN PRN Reason: Nausea And Vomiting Stop: 06/06/21 17:46 Sennosides (Senna 8.6 Mg Tab) 8.6 mg PO HS PRN PRN Reason: Constipation Stop: 06/06/21 17:46 Tacrolimus (Tacrolimus 1 Mg Cap) 3 mg PO BID [facility] Stop: 06/06/21 20:59 Last Admin: 05/13/21 08:21 Dose: 3 mg Documented by: Valganciclovir (Valganciclovir Hcl 450 Mg Tablet) 450 mg PO Q2D@0900 [facility]; Protocol Stop: 06/12/21 08:59 Last Admin: 05/13/21 08:21 Dose: 450 mg Documented by:
[2021-05-13] MEDS: CEFEPIME 500 MG in SYRINGE 0 ML IV SCH (19:47)
[2021-05-13] MEDS: ENTERAL FEEDING PEG SCH (19:48)
[2021-05-13] MEDS: AMITRIPTYLINE HCL 50 MG TAB PO SCH (20:42)
[2021-05-14 07:47] LABS: Hematocrit (blood only) 29.6 % (37-47); Hemoglobin 9.4 g/dL (12.0-16.0); Mean Corpuscular Hemoglobin 29.3 pg (25-34); Mean Corpuscular Hgb Conc 31.8 g/dL (32-36); Mean Corpuscular Volume 92.2 fL (80-100); Mean Platelet Volume 9.8 fL (7.4-10.4); Platelet Count 114 K/uL (130-400); RDW Coefficient of Variation 18.6 % (11.5-14.5); RDW Standard Deviation 63.6 fL (36.4-46.3); Red Blood Count 3.21 M/uL (4.2-5.4); White Blood Count 1.96 K/uL (4.8-10.8)
[2021-05-14 08:09] LABS: BUN Creatinine Ratio 35.5 (10-20); Creatinine Clr Calc Pharmacy 31.1 ml/min; Est GFR (African American) 41.2 ml/min; Est GFR (Non-African American) 35.5 ml/min; Magnesium 1.7 mg/dl (1.8-2.4); Phosphorus 2.9 mg/dl (2.5-4.9); Potassium 4.6 mmol/L (3.5-5.1)
[2021-05-14] MEDS: [UNRECOGNIZED DRUG - REMARK] SCH (09:13)
[2021-05-14] MEDS: DOMPERIDONE PO SCH ×4 (09:41→20:14)
[2021-05-14] MEDS: EVEROLIMUS PO SCH ×2 (09:42→20:12)
[2021-05-14] MEDS: FLUTICASONE/VILANTEROL 200/25MCG 14 PUFFS/INHALER INH SCH (09:43)
[2021-05-14] MEDS: HYDROCORTISONE 10 MG TAB PO SCH ×2 (09:44→20:13)
[2021-05-14] MEDS: LORazepam 0.5 MG TAB SL SCH ×2 (09:44→20:21)
[2021-05-14] MEDS: METOPROLOL TARTRATE 50 MG TAB PO SCH ×2 (09:45→20:12)
[2021-05-14] MEDS: TACROLIMUS 1 MG CAP PO SCH ×2 (09:45→20:12)
[2021-05-14] MEDS: MAGNESIUM OXIDE 400 MG TAB PO SCH ×2 (09:45→20:12)
[2021-05-14] MEDS: CITALOPRAM 20 MG TAB PO SCH (12:38)
[2021-05-14] MEDS: AZITHROMYCIN 250 MG TAB PO SCH (12:38)
[2021-05-14] MEDS: PANTOprazole 40 MG TAB PO SCH (12:38)
[2021-05-14] MEDS ORDERED: CEFEPIME 1,000 MG in SYRINGE 0 ML IV SCH (16:00)
[2021-05-14] MEDS: CEFEPIME 2,000 MG in SYRINGE 0 ML IV SCH (16:32)
--- NOTE | 2021-05-14 17:04 | Hospitalist Progress Note ---
Date of Service May 14, 2021 Assessment & Plan (1) Influenza A: (2) Hypoxia: (3) Lung transplant status, bilateral: Plan: 60 yo F with H/O Bilateral lung transplant in 2020 at [facility] with complicated course including difficulty weaning off the ventilator requiring tracheostomy, recurrent pneumonia and airway stenosis with stent in right bronchus intermedius, h/o pulmonary hypertension no longer on medications, paroxysmal Afib, CKD III, history chronic nausea and vomiting with G-J tube in place with tube feedings, anemia and others listed below presented to ER with c/o weakness x 1 week. SOB past couple of days. +Influenza and COVID vaccinations. Acute on chronic respiratory failure with hypoxia-POA Chronic oxygen dependency:home 1.5-2L oxygen HS Influenza A Mucous plugging Immunocompromised state H/O lung transplant, severe COPD Negative COVID test. Negative RSV. -CT Chest Compared to the previous examination, there is increased small left pleural effusion and left lower lobe atelectasis. Additionally, there is mucous plugging present in left lower lobe bronchiectasis with no confluent alveolar opacity or air bronchogram. There is again evidence of bilateral lung transplantation. Bronchiectasis is also seen involving the right middle lobe and right lower lobe. Cardiomegaly with enlargement of the left main pulmonary artery is again seen characteristic of pulmonary hypertension. --ER physician discussed spoke to [facility] Transplant Center: [phone]. mailroom clerk was Dr Roberta Reyna: Recommends no need for transfer at this time. Recommends Cefepime with her h/o pseudomonas and renally dosed Tamiflu. Also recommends decreasing tacrolimus to 3mg Q12H secondary to renal functions and checking tacrolimus level. --Tacrolimus level 20.3 --Procalcitonin 1.13 --Continue cefepime --Also on chronic suppressive therapy azithromycin, valganciclovir, tacrolimus.Bactrim on hold(takes on Mondays, ) --Continue oseltamivir --Blood cultures negative to date --Pulmonary hygiene with vest, flutter --Consider pulmonology evaluation if needed --Tacrolimus dose decreased to 3 mg twice daily given ROYER Monitor renal function Continue home inhalers and albuterol nebulizers Currently saturating on room air vs. 2L Clinically improved PT/OT eval Discussed with [facility] Transplant center Dr. Primitivo Haley: Continue tacrolimus 3 mg twice daily for now given renal function normalized Repeat tacrolimus, everolimus levels. Given history of Pseudomonas, check sputum culture Continue IV cefepime to complete 10 to 14-day course unless sputum culture returns negative. If sputum culture remains negative, can transition IV cefepime to cefuroxime 5 mg twice daily to complete 10 to 14-day course Okay to hold Bactrim for 2 weeks Needs follow-up with [facility] in 1 week upon discharge with repeat CBC Pancytopenia Neutropenia Likely multifactorial Neutropenic precautions Transfuse PRBCs as needed Anemia work-up reviewed fecal occult negative Peripheral smear not suggestive of myelodysplasia, autoimmune or microangiopathic hemolytic anemia Cytopenia slowly improving Monitor CBC (4) ROYER (acute kidney injury): Plan: ROYER on CKD III Baseline Cr: 1.4-1.9 Likely ATN and tacrolimus toxicity Creatinine 3.4>>2.7>2.15>1.86 > 1.6 Continue IV fluids as per nephrology Appreciate nephrology input Cr back to baseline 1.6 (5) Hyponatremia: Plan: Corrected Na of 130 on presentation Sodium 136 today (05/14) Monitor H/O Pulmonary hypertension H/O chronic intermittent nausea and vomiting/suspected delayed gastric emptying Has G-J-tube in place. History of it being repositioned 02/2021 Continue domperidone, Elavil Continue tube feeds H/O Paroxysmal Atrial Fibrillation Previously on Amiodarone Continue metoprolol tartrate Anemia of chronic disease Baseline 8-9 No obvious signs of bleeding Hb drop partly dilutional secondary to IV fluids Management as above DVT PX: SCDs for now CODE STATUS: Full Code Disposition PT OT prior to discharge May need 2 step prior to discharge Admission and Anticipated Discharge Date Admission Date: May 07, 2021 Subjective Patient is seen in follow-up of influenza A, history of lung transplant Patient is currently sitting up in bed, watching TV, in no acute distress States feeling better was able to give sputum sample, but very difficult for her Nephrology has been following Cr down to 1.6 Previous provider discussed with [facility] transfer center Denies fevers, chills, abdominal pain, n/v Review of Systems Review of Systems: All systems reviewed & are unremarkable except as noted in Subjective Physical Exam Physical Exam: General Appearance: Thin, chronically ill appearing Head: normocephalic, Atraumatic Eyes: normal inspection, EOMI Neck: supple, Trachea midline Respiratory/Chest: + diffuse rhonchi, improved air movement Cardiovascular: S1, S2, No murmur Abdomen/GI:Soft, Non tender, + PEG tube, Bowel sounds present Extremities/Musculoskeletal:normal inspection, no edema Neurologic/Psych:AAOX3, speech fluent, moves extremities Skin: normal color, warm Results & Data Results & Data ([facility]) Vital Signs (Past 12 Hours) Vital Signs Temp Pulse Pulse Resp BP Pulse Ox 05/14/21 16:12 37.2 C 78 21 149/82 H 96 05/14/21 11:44 37.2 C 81 19 152/90 H 95 05/14/21 08:00 82 05/14/21 07:59 37.1 C 114 H 19 148/88 H 93 Laboratory Results 05/14/21 05/14/21 Range/Units 07:27 07:27 WBC 1.96 L (4.8-10.8) K/uL RBC 3.21 L (4.2-5.4) M/uL Hgb 9.4 L (12.0-16.0) g/dL Hct 29.6 L (37-47) % MCV 92.2 (80-100) fL MCH 29.3 (25-34) pg MCHC 31.8 L (32-36) g/dL RDW Std Deviation 63.6 H (36.4-46.3) fL RDW Coeff of Janina 18.6 H (11.5-14.5) % Plt Count 114 L (130-400) K/uL MPV 9.8 (7.4-10.4) fL Sodium 136 (136-145) mmol/L Potassium 4.6 (3.5-5.1) mmol/L Chloride 102 (98-107) mmol/L Carbon Dioxide 28 (21-32) mmol/L Anion Gap 6.0 (3-11) BUN 55 H (7-18) mg/dl Creatinine 1.55 H (0.6-1.2) mg/dl Est Cr Clr Drug Dosing 31.1 ml/min Est GFR ( Amer) 41.2 ml/min Est GFR (Non-Af Amer) 35.5 ml/min BUN/Creatinine Ratio 35.5 H (10-20) Glucose 116 H (70-99) mg/dl Calcium 9.0 (8.5-10.1) mg/dl Phosphorus 2.9 (2.5-4.9) mg/dl Magnesium 1.7 L (1.8-2.4) mg/dl Medications Administered Current Inpatient Medications Acetaminophen (Acetaminophen 325 Mg Tab) 650 mg PO Q4H PRN PRN Reason: Pain or Fever Stop: 06/06/21 17:46 Last Admin: 05/11/21 11:39 Dose: 650 mg Documented by: Albuterol (Albuterol 0.083% Nebu Soln 3 Ml Vial) 2.5 mg INH Q4H PRN PRN Reason: Shortness Of Breath Stop: 06/06/21 17:46 Last Admin: 05/12/21 08:14 Dose: 2.5 mg Documented by: Amitriptyline HCl (Amitriptyline Hcl 50 Mg Tab) 50 mg PO HS [facility] Stop: 06/06/21 20:59 Last Admin: 05/13/21 20:42 Dose: 50 mg Documented by: Azithromycin (Azithromycin 250 Mg Tab) 250 mg PO DAILY@1200 [facility] Stop: 06/07/21 11:59 Last Admin: 05/14/21 12:38 Dose: 250 mg Documented by: Citalopram Hydrobromide (Citalopram 20 Mg Tab) 10 mg PO DAILY@1200 [facility] Stop: 06/07/21 11:59 Last Admin: 05/14/21 12:38 Dose: 10 mg Documented by: Everolimus (*Everolimus* Patient Own Med) 4 ea PO Q12 [facility] Stop: 06/07/21 20:59 Last Admin: 05/14/21 09:42 Dose: 4 ea Documented by: Fluticasone/Vilanterol (Fluticasone/Vilanterol 200/25mcg 14 Puffs/Inhaler) 1 puffs INH QAM [facility] Stop: 06/07/21 08:59 Last Admin: 05/14/21 09:43 Dose: 1 puffs Documented by: Hydrocortisone (Hydrocortisone 10 Mg Tab) 20 mg PO QAM [facility] Stop: 06/07/21 08:59 Last Admin: 05/14/21 09:44 Dose: 20 mg Documented by: Hydrocortisone (Hydrocortisone 10 Mg Tab) 10 mg PO PM [facility] Stop: 06/06/21 20:59 Last Admin: 05/13/21 20:42 Dose: 10 mg Documented by: Cefepime HCl 2,000 mg/ Syringe 20 mls @ 5 mls/min IV DAILY@1600 [facility]; Protocol Stop: 05/21/21 15:59 Last Admin: 05/14/21 16:32 Dose: 5 mls/min Documented by: Lorazepam (Lorazepam 0.5 Mg Tab) 0.5 mg SL BID [facility] Stop: 06/06/21 20:59 Last Admin: 05/14/21 09:44 Dose: 0.5 mg Documented by: Magnesium Oxide (Magnesium Oxide 400 Mg Tab) 400 mg PO BID [facility] Stop: 06/12/21 08:59 Last Admin: 05/14/21 09:45 Dose: 400 mg Documented by: Metoprolol Tartrate (Metoprolol Tartrate 50 Mg Tab) 50 mg PO BID [facility] Stop: 06/06/21 20:59 Last Admin: 05/14/21 09:45 Dose: 50 mg Documented by: Miscellaneous (Stop Order [Pt Own Tube Feed]) 1 ea N/A DAILY@0700 [facility] Stop: 06/11/21 06:59 Last Admin: 05/14/21 09:13 Dose: 1 ea Documented by: Domperidone: Non- Formulary Patient's Own Med 1 ea PO ACHS [facility] Stop: 06/07/21 00:00 Last Admin: 05/14/21 16:26 Dose: 2 tab Documented by: Nutritional Formula (Patient's Own Enteral Feeding [Nephro]) 1 ml PEG DAILY@2000 [facility] Stop: 06/10/21 16:29 Last Admin: 05/13/21 19:48 Dose: 1 ml Documented by: Pantoprazole Sodium (Pantoprazole 40 Mg Tab) 40 mg PO DAILY@1200 [facility] Stop: 06/07/21 11:59 Last Admin: 05/14/21 12:38 Dose: 40 mg Documented by: Prochlorperazine (Prochlorperazine Maleate 10 Mg Tab) 10 mg PO BID PRN PRN Reason: Nausea And Vomiting Stop: 06/06/21 17:46 Sennosides (Senna 8.6 Mg Tab) 8.6 mg PO HS PRN PRN Reason: Constipation Stop: 06/06/21 17:46 Tacrolimus (Tacrolimus 1 Mg Cap) 3 mg PO BID [facility] Stop: 06/06/21 20:59 Last Admin: 05/14/21 09:45 Dose: 3 mg Documented by: Valganciclovir (Valganciclovir Hcl 450 Mg Tablet) 450 mg PO Q2D@0900 [facility]; Protocol Stop: 06/12/21 08:59 Last Admin: 05/13/21 08:21 Dose: 450 mg Documented by:
[2021-05-14] MEDS: ENTERAL FEEDING PEG SCH (20:09)
[2021-05-14] MEDS: AMITRIPTYLINE HCL 50 MG TAB PO SCH (20:12)
[2021-05-15 07:35] LABS: Hematocrit (blood only) 30.4 % (37-47); Hemoglobin 9.8 g/dL (12.0-16.0); Mean Corpuscular Hemoglobin 29.4 pg (25-34); Mean Corpuscular Hgb Conc 32.2 g/dL (32-36); Mean Corpuscular Volume 91.3 fL (80-100); Mean Platelet Volume 10.2 fL (7.4-10.4); Platelet Count 117 K/uL (130-400); RDW Coefficient of Variation 18.2 % (11.5-14.5); RDW Standard Deviation 61.2 fL (36.4-46.3); Red Blood Count 3.33 M/uL (4.2-5.4); White Blood Count 3.12 K/uL (4.8-10.8)
[2021-05-15 08:10] LABS: BUN Creatinine Ratio 32.1 (10-20); Calcium 9.2 mg/dl (8.5-10.1); Creatinine Clr Calc Pharmacy 29.2 ml/min; Est GFR (African American) 38.2 ml/min; Est GFR (Non-African American) 32.9 ml/min; Magnesium 1.9 mg/dl (1.8-2.4); Phosphorus 2.6 mg/dl (2.5-4.9); Potassium 4.3 mmol/L (3.5-5.1)
[2021-05-15] MEDS: DOMPERIDONE PO SCH ×4 (08:32→21:08)
[2021-05-15] MEDS: EVEROLIMUS PO SCH ×2 (08:32→21:08)
[2021-05-15] MEDS: MAGNESIUM OXIDE 400 MG TAB PO SCH ×2 (08:34→21:09)
[2021-05-15] MEDS: METOPROLOL TARTRATE 50 MG TAB PO SCH ×2 (08:34→21:08)
[2021-05-15] MEDS: TACROLIMUS 1 MG CAP PO SCH ×2 (08:34→21:09)
[2021-05-15] MEDS: VALGANCICLOVIR HCL 450 MG TABLET PO SCH (08:35)
[2021-05-15] MEDS: FLUTICASONE/VILANTEROL 200/25MCG 14 PUFFS/INHALER INH SCH (08:36)
[2021-05-15] MEDS: LORazepam 0.5 MG TAB SL SCH ×2 (08:39→21:13)
[2021-05-15] MEDS: HYDROCORTISONE 10 MG TAB PO SCH ×2 (08:40→21:09)
[2021-05-15] MEDS: [UNRECOGNIZED DRUG - REMARK] SCH (09:55)
[2021-05-15] MEDS: AZITHROMYCIN 250 MG TAB PO SCH (11:48)
[2021-05-15] MEDS: PANTOprazole 40 MG TAB PO SCH (11:48)
[2021-05-15] MEDS: CITALOPRAM 20 MG TAB PO SCH (11:48)
[2021-05-15] MEDS: CEFEPIME 2,000 MG in SYRINGE 0 ML IV SCH (16:18)
--- NOTE | 2021-05-15 16:24 | Hospitalist Progress Note ---
Date of Service May 15, 2021 Assessment & Plan (1) Influenza A: (2) Hypoxia: (3) Lung transplant status, bilateral: Plan: 60 yo F with H/O Bilateral lung transplant in 2020 at [facility] with complicated course including difficulty weaning off the ventilator requiring tracheostomy, recurrent pneumonia and airway stenosis with stent in right bronchus intermedius, h/o pulmonary hypertension no longer on medications, paroxysmal Afib, CKD III, history chronic nausea and vomiting with G-J tube in place with tube feedings, anemia and others listed below presented to ER with c/o weakness x 1 week. SOB past couple of days. +Influenza and COVID vaccinations. Acute on chronic respiratory failure with hypoxia-POA Chronic oxygen dependency:home 1.5-2L oxygen HS Influenza A Mucous plugging Immunocompromised state H/O lung transplant, severe COPD Negative COVID test. Negative RSV. -CT Chest Compared to the previous examination, there is increased small left pleural effusion and left lower lobe atelectasis. Additionally, there is mucous plugging present in left lower lobe bronchiectasis with no confluent alveolar opacity or air bronchogram. There is again evidence of bilateral lung transplantation. Bronchiectasis is also seen involving the right middle lobe and right lower lobe. Cardiomegaly with enlargement of the left main pulmonary artery is again seen characteristic of pulmonary hypertension. --ER physician discussed spoke to [facility] Transplant Center: [phone]. 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 Recommends Cefepime with her h/o pseudomonas and renally dosed Tamiflu. Also recommends decreasing tacrolimus to 3mg Q12H secondary to renal functions and checking tacrolimus level. --Tacrolimus level 20.3 (on 05/08), 24.2 (on 05/11) --Procalcitonin 1.13 --Continue cefepime --Also on chronic suppressive therapy azithromycin, valganciclovir, tacrolimus.Bactrim on hold(takes on Mondays, ) --Finished oseltamivir (tamiflu) course --Blood cultures negative to date --Pulmonary hygiene with vest, flutter --Consider pulmonology evaluation if needed --Tacrolimus dose decreased to 3 mg twice daily given ROYER Monitor renal function Continue home inhalers and albuterol nebulizers Currently saturating on room air vs. 2L - 2 step study ordered Clinically improved PT/OT eval Discussed with [facility] Transplant center Dr. Primitivo Haley: Continue tacrolimus 3 mg twice daily for now given renal function normalized Repeat tacrolimus, everolimus levels. Given history of Pseudomonas, check sputum culture Continue IV cefepime to complete 10 to 14-day course unless sputum culture returns negative. If sputum culture remains negative, can transition IV cefepime to cefuroxime 5 mg twice daily to complete 10 to 14-day course Okay to hold Bactrim for 2 weeks Needs follow-up with [facility] in 1 week upon discharge with repeat CBC 05/15 - sputum cultx obtained - so far shows normal santi Pancytopenia Neutropenia Likely multifactorial Neutropenic precautions Transfuse PRBCs as needed Anemia work-up reviewed fecal occult negative Peripheral smear not suggestive of myelodysplasia, autoimmune or microangio pathic hemolytic anemia Cytopenia slowly improving Monitor CBC (4) ROYER (acute kidney injury): Plan: ROYER on CKD III Baseline Cr: 1.4-1.9 Likely ATN and tacrolimus toxicity Creatinine 3.4>>2.7>2.15>1.86 > 1.6 Continue IV fluids as per nephrology Appreciate nephrology input Cr back to baseline 1.6 (5) Hyponatremia: Plan: Corrected Na of 130 on presentation Sodium 136 today (05/14) Monitor H/O Pulmonary hypertension H/O chronic intermittent nausea and vomiting/suspected delayed gastric emptying Has G-J-tube in place. History of it being repositioned 02/2021 Continue domperidone, Elavil Continue tube feeds H/O Paroxysmal Atrial Fibrillation Previously on Amiodarone Continue metoprolol tartrate Anemia of chronic disease Baseline 8-9 No obvious signs of bleeding Hb drop partly dilutional secondary to IV fluids Management as above DVT PX: SCDs for now CODE STATUS: Full Code Disposition PT OT prior to discharge May need 2 step prior to discharge Admission and Anticipated Discharge Date Admission Date: May 07, 2021 Subjective Patient is seen in follow-up of influenza A, history of lung transplant Patient is currently sitting up in bed, watching TV, in no acute distress States feeling better sputum cultx so far shows normal santi Nephrology has been following Cr down to 1.6 Previous provider discussed with [facility] transfer center Denies fevers, chills, abdominal pain, n/v Review of Systems Review of Systems: All systems reviewed & are unremarkable except as noted in Subjective Physical Exam Physical Exam: General Appearance: Thin, chronically ill appearing Head: normocephalic, Atraumatic Eyes: normal inspection, EOMI Neck: supple, Trachea midline Respiratory/Chest: + diffuse rhonchi, improved air movement Cardiovascular: S1, S2, No murmur Abdomen/GI:Soft, Non tender, + PEG tube, Bowel sounds present Extremities/Musculoskeletal:normal inspection, no edema Neurologic/Psych:AAOX3, speech fluent, moves extremities Skin: normal color, warm Results & Data Results & Data ([facility]) Vital Signs (Past 12 Hours) Vital Signs Temp Pulse Pulse Resp BP BP Pulse Ox 05/15/21 15:00 37.1 C 80 22 152/94 H 05/15/21 11:00 37.2 C 82 22 133/82 92 05/15/21 06:43 37.1 C 84 17 118/72 96 Laboratory Results 05/15/21 05/15/21 Range/Units 06:59 06:59 WBC 3.12 L (4.8-10.8) K/uL RBC 3.33 L (4.2-5.4) M/uL Hgb 9.8 L (12.0-16.0) g/dL Hct 30.4 L (37-47) % MCV 91.3 (80-100) fL MCH 29.4 (25-34) pg MCHC 32.2 (32-36) g/dL RDW Std Deviation 61.2 H (36.4-46.3) fL RDW Coeff of Janina 18.2 H (11.5-14.5) % Plt Count 117 L (130-400) K/uL MPV 10.2 (7.4-10.4) fL Sodium 137 (136-145) mmol/L Potassium 4.3 (3.5-5.1) mmol/L Chloride 103 (98-107) mmol/L Carbon Dioxide 28 (21-32) mmol/L Anion Gap 6.0 (3-11) BUN 53 H (7-18) mg/dl Creatinine 1.65 H (0.6-1.2) mg/dl Est Cr Clr Drug Dosing 29.2 ml/min Est GFR ( Amer) 38.2 ml/min Est GFR (Non-Af Amer) 32.9 ml/min BUN/Creatinine Ratio 32.1 H (10-20) Glucose 106 H (70-99) mg/dl Calcium 9.2 (8.5-10.1) mg/dl Phosphorus 2.6 (2.5-4.9) mg/dl Magnesium 1.9 (1.8-2.4) mg/dl Medications Administered Current Inpatient Medications Acetaminophen (Acetaminophen 325 Mg Tab) 650 mg PO Q4H PRN PRN Reason: Pain or Fever Stop: 06/06/21 17:46 Last Admin: 05/11/21 11:39 Dose: 650 mg Documented by: Albuterol (Albuterol 0.083% Nebu Soln 3 Ml Vial) 2.5 mg INH Q4H PRN PRN Reason: Shortness Of Breath Stop: 06/06/21 17:46 Last Admin: 05/12/21 08:14 Dose: 2.5 mg Documented by: Amitriptyline HCl (Amitriptyline Hcl 50 Mg Tab) 50 mg PO HS [facility] Stop: 06/06/21 20:59 Last Admin: 05/14/21 20:12 Dose: 50 mg Documented by: Azithromycin (Azithromycin 250 Mg Tab) 250 mg PO DAILY@1200 [facility] Stop: 06/07/21 11:59 Last Admin: 05/15/21 11:48 Dose: 250 mg Documented by: Citalopram Hydrobromide (Citalopram 20 Mg Tab) 10 mg PO DAILY@1200 [facility] Stop: 06/07/21 11:59 Last Admin: 05/15/21 11:48 Dose: 10 mg Documented by: Everolimus (*Everolimus* Patient Own Med) 4 ea PO Q12 [facility] Stop: 06/07/21 20:59 Last Admin: 05/15/21 08:32 Dose: 4 ea Documented by: Fluticasone/Vilanterol (Fluticasone/Vilanterol 200/25mcg 14 Puffs/Inhaler) 1 puffs INH QAM [facility] Stop: 06/07/21 08:59 Last Admin: 05/15/21 08:36 Dose: 1 puffs Documented by: Hydrocortisone (Hydrocortisone 10 Mg Tab) 20 mg PO QAM [facility] Stop: 06/07/21 08:59 Last Admin: 05/15/21 08:40 Dose: 20 mg Documented by: Hydrocortisone (Hydrocortisone 10 Mg Tab) 10 mg PO PM [facility] Stop: 06/06/21 20:59 Last Admin: 05/14/21 20:13 Dose: 10 mg Documented by: Cefepime HCl 2,000 mg/ Syringe 20 mls @ 5 mls/min IV DAILY@1600 [facility]; Protocol Stop: 05/21/21 15:59 Last Admin: 05/15/21 16:18 Dose: 5 mls/min Documented by: Lorazepam (Lorazepam 0.5 Mg Tab) 0.5 mg SL BID [facility] Stop: 06/06/21 20:59 Last Admin: 05/15/21 08:39 Dose: 0.5 mg Documented by: Magnesium Oxide (Magnesium Oxide 400 Mg Tab) 400 mg PO BID [facility] Stop: 06/12/21 08:59 Last Admin: 05/15/21 08:34 Dose: 400 mg Documented by: Metoprolol Tartrate (Metoprolol Tartrate 50 Mg Tab) 50 mg PO BID [facility] Stop: 06/06/21 20:59 Last Admin: 05/15/21 08:34 Dose: 50 mg Documented by: Miscellaneous (Stop Order [Pt Own Tube Feed]) 1 ea N/A DAILY@0700 [facility] Stop: 06/11/21 06:59 Last Admin: 05/15/21 09:55 Dose: 1 ea Documented by: Domperidone: Non- Formulary Patient's Own Med 1 ea PO ACHS [facility] Stop: 06/07/21 00:00 Last Admin: 05/15/21 16:17 Dose: 1 tab Documented by: Nutritional Formula (Patient's Own Enteral Feeding [Nephro]) 1 ml PEG DAILY@2000 [facility] Stop: 06/10/21 16:29 Last Admin: 05/14/21 20:09 Dose: 1 ml Documented by: Pantoprazole Sodium (Pantoprazole 40 Mg Tab) 40 mg PO DAILY@1200 [facility] Stop: 06/07/21 11:59 Last Admin: 05/15/21 11:48 Dose: 40 mg Documented by: Prochlorperazine (Prochlorperazine Maleate 10 Mg Tab) 10 mg PO BID PRN PRN Reason: Nausea And Vomiting Stop: 06/06/21 17:46 Sennosides (Senna 8.6 Mg Tab) 8.6 mg PO HS PRN PRN Reason: Constipation Stop: 06/06/21 17:46 Tacrolimus (Tacrolimus 1 Mg Cap) 3 mg PO BID [facility] Stop: 06/06/21 20:59 Last Admin: 05/15/21 08:34 Dose: 3 mg Documented by: Valganciclovir (Valganciclovir Hcl 450 Mg Tablet) 450 mg PO Q2D@0900 [facility]; Protocol Stop: 06/12/21 08:59 Last Admin: 05/15/21 08:35 Dose: 450 mg Documented by:
[2021-05-15] MEDS: ENTERAL FEEDING PEG SCH (20:55)
[2021-05-15] MEDS: AMITRIPTYLINE HCL 50 MG TAB PO SCH (21:09)
[2021-05-16 07:28] LABS: Hematocrit (blood only) 30.1 % (37-47); Hemoglobin 9.6 g/dL (12.0-16.0); Mean Corpuscular Hemoglobin 29.3 pg (25-34); Mean Corpuscular Hgb Conc 31.9 g/dL (32-36); Mean Corpuscular Volume 91.8 fL (80-100); Platelet Count 100 K/uL (130-400); RDW Coefficient of Variation 18.3 % (11.5-14.5); RDW Standard Deviation 61.3 fL (36.4-46.3); Red Blood Count 3.28 M/uL (4.2-5.4); White Blood Count 2.82 K/uL (4.8-10.8)
[2021-05-16 08:01] LABS: BUN Creatinine Ratio 35.3 (10-20); Calcium 9.8 mg/dl (8.5-10.1); Est GFR (African American) 44.3 ml/min; Est GFR (Non-African American) 38.2 ml/min; Magnesium 1.9 mg/dl (1.8-2.4); Phosphorus 2.5 mg/dl (2.5-4.9); Potassium 4.3 mmol/L (3.5-5.1)
[2021-05-16] MEDS: DOMPERIDONE PO SCH ×2 (08:44→13:43)
[2021-05-16] MEDS: [UNRECOGNIZED DRUG - REMARK] SCH (08:44)
[2021-05-16] MEDS: FLUTICASONE/VILANTEROL 200/25MCG 14 PUFFS/INHALER INH SCH (08:45)
[2021-05-16] MEDS: EVEROLIMUS PO SCH (08:45)
[2021-05-16] MEDS: TACROLIMUS 1 MG CAP PO SCH (08:45)
[2021-05-16] MEDS: HYDROCORTISONE 10 MG TAB PO SCH (08:46)
[2021-05-16] MEDS: MAGNESIUM OXIDE 400 MG TAB PO SCH (08:47)
[2021-05-16] MEDS: VALGANCICLOVIR HCL 450 MG TABLET PO SCH (08:47)
[2021-05-16] MEDS: METOPROLOL TARTRATE 50 MG TAB PO SCH (08:47)
[2021-05-16] MEDS: LORazepam 0.5 MG TAB SL SCH (08:49)
--- NOTE | 2021-05-16 11:13 | Hospitalist Progress Note ---
Date of Service May 16, 2021 Assessment & Plan (1) Influenza A: (2) Hypoxia: (3) Lung transplant status, bilateral: Plan: 60 yo F with H/O Bilateral lung transplant in 2020 at [facility] with complicated course including difficulty weaning off the ventilator requiring tracheostomy, recurrent pneumonia and airway stenosis with stent in right bronchus intermedius, h/o pulmonary hypertension no longer on medications, paroxysmal Afib, CKD III, history chronic nausea and vomiting with G-J tube in place with tube feedings, anemia and others listed below presented to ER with c/o weakness x 1 week. SOB past couple of days. +Influenza and COVID vaccinations. Acute on chronic respiratory failure with hypoxia-POA Uses oxygen on and off at home 1.5-2L oxygen (from her friend) Influenza A Mucous plugging Immunocompromised state H/O lung transplant, severe COPD Negative COVID test. Negative RSV. -CT Chest Compared to the previous examination, there is increased small left pleural effusion and left lower lobe atelectasis. Additionally, there is mucous plugging present in left lower lobe bronchiectasis with no confluent alveolar opacity or air bronchogram. There is again evidence of bilateral lung transplantation. Bronchiectasis is also seen involving the right middle lobe and right lower lobe. Cardiomegaly with enlargement of the left main pulmonary artery is again seen characteristic of pulmonary hypertension. --ER physician discussed spoke to [facility] Transplant Center: [phone]. 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 Recommends Cefepime with her h/o pseudomonas and renally dosed Tamiflu. Also recommends decreasing tacrolimus to 3mg Q12H secondary to renal functions and checking tacrolimus level. --Tacrolimus level 20.3 (on 05/08), 24.2 (on 05/11) --Procalcitonin 1.13 --Continue cefepime --Also on chronic suppressive therapy azithromycin, valganciclovir, tacrolimus.Bactrim on hold(takes on Mondays, ) --Finished oseltamivir (tamiflu) course --Blood cultures negative to date --Pulmonary hygiene with vest, flutter --Consider pulmonology evaluation if needed --Tacrolimus dose decreased to 3 mg twice daily given ROYER Monitor renal function Continue home inhalers and albuterol nebulizers Currently saturating on room air vs. 2L - 2 step study obtained - pt did not qualify for O2 Clinically improved PT/OT eval Discussed with [facility] Transplant center Dr. Primitivo Haley: Continue tacrolimus 3 mg twice daily for now until renal function normalized Repeat tacrolimus, everolimus levels. Given history of Pseudomonas, check sputum culture Continue IV cefepime to complete 10 to 14-day course unless sputum culture returns negative. If sputum culture remains negative, can transition IV cefepime to cefuroxime 500 mg twice daily to complete 10 to 14-day course Okay to hold Bactrim for 2 weeks Needs follow-up with [facility] in 1 week upon discharge with repeat CBC 05/15 - sputum cultx obtained - so far shows normal santi 05/16 -creatinine normalized, at 1.5, therefore will discharge patient on home tacrolimus dose of 4.5 mg twice a day. Patient will discuss further with her transplant team. Sputum culture so far only shows normal santi. She finished 10 days of cefepime already, will discharge on cefuroxime for next 4 days. She will follow up further with PCP and transplant team. Pancytopenia Neutropenia Likely multifactorial Neutropenic precautions Transfuse PRBCs as needed Anemia work-up reviewed fecal occult negative Peripheral smear not suggestive of myelodysplasia, autoimmune or microangiopathic hemolytic anemia Cytopenia slowly improving Monitor CBC (4) ROYER (acute kidney injury): Plan: ROYER on CKD III Baseline Cr: 1.4-1.9 Likely ATN and tacrolimus toxicity Creatinine 3.4>>2.7>2.15>1.86 > 1.6 Continue IV fluids as per nephrology Appreciate nephrology input Cr back to baseline 1.5 (5) Hyponatremia: Plan: Corrected Na of 130 on presentation Sodium 137 today (05/16) Monitor H/O Pulmonary hypertension H/O chronic intermittent nausea and vomiting/suspected delayed gastric emptying Has G-J-tube in place. History of it being repositioned 02/2021 Continue domperidone, Elavil Continue tube feeds H/O Paroxysmal Atrial Fibrillation Previously on Amiodarone Continue metoprolol tartrate Anemia of chronic disease Baseline 8-9 No obvious signs of bleeding Hb drop partly dilutional secondary to IV fluids Management as above DVT PX: SCDs for now CODE STATUS: Full Code Disposition: Plan to discharge home Admission and Anticipated Discharge Date Admission Date: May 07, 2021 Subjective Patient is seen in follow-up of influenza A, history of lung transplant Patient is currently sitting up in bed, watching TV, in no acute distress States she is feeling well sputum cultx so far shows normal santi Nephrology has been following Cr down to 1.5 Previous provider discussed with [facility] transfer center Denies fevers, chills, abdominal pain, n/v Review of Systems Review of Systems: All systems reviewed & are unremarkable except as noted in Subjective Physical Exam Physical Exam: General Appearance: Thin, chronically ill appearing Head: normocephalic, Atraumatic Eyes: normal inspection, EOMI Neck: supple, Trachea midline Respiratory/Chest: + mild diffuse rhonchi, improved air movement Cardiovascular: S1, S2, No murmur Abdomen/GI:Soft, Non tender, + PEG tube, Bowel sounds present Extremities/Musculoskeletal:normal inspection, no edema Neurologic/Psych:AAOX3, speech fluent, moves extremities Skin: normal color, warm Results & Data Results [facility] Vital Signs (Past 12 Hours) Vital Signs Temp Pulse Pulse Pulse Pulse Pulse Pulse 05/16/21 08:30 108 H 98 H 79 05/16/21 07:57 85 05/16/21 07:00 37.0 C 67 05/16/21 03:00 37.0 C 83 Resp Resp Resp Resp BP Pulse Ox Pulse Ox 05/16/21 08:30 32 H 24 26 H 92 05/16/21 07:57 05/16/21 07:00 22 112/62 98 05/16/21 03:00 16 164/89 H 93 Pulse Ox Pulse Ox 05/16/21 08:30 93 95 05/16/21 07:57 05/16/21 07:00 05/16/21 03:00 Laboratory Results 05/16/21 05/16/21 Range/Units 06:45 06:45 WBC 2.82 L (4.8-10.8) K/uL RBC 3.28 L (4.2-5.4) M/uL Hgb 9.6 L (12.0-16.0) g/dL Hct 30.1 L (37-47) % MCV 91.8 (80-100) fL MCH 29.3 (25-34) pg MCHC 31.9 L (32-36) g/dL RDW Std Deviation 61.3 H (36.4-46.3) fL RDW Coeff of Janina 18.3 H (11.5-14.5) % Plt Count 100 L (130-400) K/uL MPV 10.0 (7.4-10.4) fL Sodium 137 (136-145) mmol/L Potassium 4.3 (3.5-5.1) mmol/L Chloride 103 (98-107) mmol/L Carbon Dioxide 29 (21-32) mmol/L Anion Gap 5.0 (3-11) BUN 52 H (7-18) mg/dl Creatinine 1.46 H (0.6-1.2) mg/dl Est Cr Clr Drug Dosing 33.0 ml/min Est GFR ( Amer) 44.3 ml/min Est GFR (Non-Af Amer) 38.2 ml/min BUN/Creatinine Ratio 35.3 H (10-20) Glucose 108 H (70-99) mg/dl Calcium 9.8 (8.5-10.1) mg/dl Phosphorus 2.5 (2.5-4.9) mg/dl Magnesium 1.9 (1.8-2.4) mg/dl Medications Administered Current Inpatient Medications Acetaminophen (Acetaminophen 325 Mg Tab) 650 mg PO Q4H PRN PRN Reason: Pain or Fever Stop: 06/06/21 17:46 Last Admin: 05/11/21 11:39 Dose: 650 mg Documented by: Albuterol (Albuterol 0.083% Nebu Soln 3 Ml Vial) 2.5 mg INH Q4H PRN PRN Reason: Shortness Of Breath Stop: 06/06/21 17:46 Last Admin: 05/12/21 08:14 Dose: 2.5 mg Documented by: Amitriptyline HCl (Amitriptyline Hcl 50 Mg Tab) 50 mg PO [facility] Stop: 06/06/21 20:59 Last Admin: 05/15/21 21:09 Dose: 50 mg Documented by: Azithromycin (Azithromycin 250 Mg Tab) 250 mg PO DAILY@1200 [facility] Stop: 06/07/21 11:59 Last Admin: 05/15/21 11:48 Dose: 250 mg Documented by: Citalopram Hydrobromide (Citalopram 20 Mg Tab) 10 mg PO DAILY@1200 [facility] Stop: 06/07/21 11:59 Last Admin: 05/15/21 11:48 Dose: 10 mg Documented by: Everolimus (*Everolimus* Patient Own Med) 4 ea PO Q12 [facility] Stop: 06/07/21 20:59 Last Admin: 05/16/21 08:45 Dose: 4 ea Documented by: Fluticasone/Vilanterol (Fluticasone/Vilanterol 200/25mcg 14 Puffs/Inhaler) 1 puffs INH QAM [facility] Stop: 06/07/21 08:59 Last Admin: 05/16/21 08:45 Dose: 1 puffs Documented by: Hydrocortisone (Hydrocortisone 10 Mg Tab) 20 mg PO QAM [facility] Stop: 06/07/21 08:59 Last Admin: 05/16/21 08:46 Dose: 20 mg Documented by: Hydrocortisone (Hydrocortisone 10 Mg Tab) 10 mg PO PM [facility] Stop: 06/06/21 20:59 Last Admin: 05/15/21 21:09 Dose: 10 mg Documented by: Cefepime HCl 2,000 mg/ Syringe 20 mls @ 5 mls/min IV DAILY@1600 [facility]; Protocol Stop: 05/21/21 15:59 Last Admin: 05/15/21 16:18 Dose: 5 mls/min Documented by: Lorazepam (Lorazepam 0.5 Mg Tab) 0.5 mg SL BID [facility] Stop: 06/06/21 20:59 Last Admin: 05/16/21 08:49 Dose: 0.5 mg Documented by: Magnesium Oxide (Magnesium Oxide 400 Mg Tab) 400 mg PO BID [facility] Stop: 06/12/21 08:59 Last Admin: 05/16/21 08:47 Dose: 400 mg Documented by: Metoprolol Tartrate (Metoprolol Tartrate 50 Mg Tab) 50 mg PO BID [facility] Stop: 06/06/21 20:59 Last Admin: 05/16/21 08:47 Dose: 50 mg Documented by: Miscellaneous (Stop Order [Pt Own Tube Feed]) 1 ea N/A DAILY@0700 [facility] Stop: 06/11/21 06:59 Last Admin: 05/16/21 08:44 Dose: 1 ea Documented by: Domperidone: Non- Formulary Patient's Own Med 1 ea PO ACHS [facility] Stop: 06/07/21 00:00 Last Admin: 05/16/21 08:44 Dose: 2 tab Documented by: Nutritional Formula (Patient's Own Enteral Feeding [Nephro]) 1 ml PEG DAILY@2000 [facility] Stop: 06/10/21 16:29 Last Admin: 05/15/21 20:55 Dose: 1 ml Documented by: Pantoprazole Sodium (Pantoprazole 40 Mg Tab) 40 mg PO DAILY@1200 [facility] Stop: 06/07/21 11:59 Last Admin: 05/15/21 11:48 Dose: 40 mg Documented by: Prochlorperazine (Prochlorperazine Maleate 10 Mg Tab) 10 mg PO BID PRN PRN Reason: Nausea And Vomiting Stop: 06/06/21 17:46 Sennosides (Senna 8.6 Mg Tab) 8.6 mg PO HS PRN PRN Reason: Constipation Stop: 06/06/21 17:46 Tacrolimus (Tacrolimus 1 Mg Cap) 3 mg PO BID [facility] Stop: 06/06/21 20:59 Last Admin: 05/16/21 08:45 Dose: 3 mg Documented by: Valganciclovir (Valganciclovir Hcl 450 Mg Tablet) 450 mg PO Q2D@0900 [facility]; Protocol Stop: 06/12/21 08:59 Last Admin: 05/16/21 08:47 Dose: 450 mg Documented by:
[2021-05-16] MEDS ORDERED: CEFEPIME 2,000 MG in SYRINGE 0 ML IV SCH (13:00)
[2021-05-16] MEDS: AZITHROMYCIN 250 MG TAB PO SCH (13:44)
[2021-05-16] MEDS: CITALOPRAM 20 MG TAB PO SCH (13:44)
[2021-05-16] MEDS: PANTOprazole 40 MG TAB PO SCH (13:44)
--- NOTE | 2021-05-16 15:23 | Discharge Summary ---
Date of Service May 16, 2021 Admission HPI Per Admitting Provider Patient is a 60-year-old female with PMH bilateral lung transplant in 2020 at [facility] with complicated course including difficulty weaning off the ventilator requiring tracheostomy, recurrent pneumonia and airway stenosis with stent in right bronchus intermedius, h/o pulmonary hypertension no longer on medications, paroxysmal atrial fibrillation, CKD III, history chronic nausea and vomiting with G-J tube in place with tube feedings, anemia and others listed below presented to ER with c/o weakness x 1 week. Patient reports one week ago started with weakness, body aches, slight nonproductive cough. Past several days with increased weakness and 2 days ago had a fall. Denies LOC. States increased SOB and has been needing to use her oxygen at 1.5-2L. Normally she has been using oxygen at 1.5-2L HS and as needed basis. Has been feeling to weak to eat. Denies nausea or vomiting. Pt with h/o chronic N/V however had her G-J tube repositioned in 02/2021 and since her symptoms have decreased and past 3 weeks she has been eating well orally and was able to discontinue her overnight tube feeds. She did resume tube feeds past 2 days secondary to her not eating or drinking the past week. Reports constipation this week and took OTC laxative and last night had several BM's. Denies fever/chills, diaphoresis, melena, hematochezia, MONTES, syncope, vision changes, neck pain, CP, orthopnea, palpitations, sore throat, choking, otalgia, rhinorrhea, abdominal pain, paresthesias,extremity edema, rashes, urinary symptoms, urinary retention. Was around family 8 days ago for Thanksgiving a child had an ear infection, no other known ill contacts. Is vaccinated flu and COVID. Today in ER pt afebrile, P: 94, R: 28, BP: 87/58 up to 129/72 after 500ml NSS, 81%RA up to 100% on 3L via NC. WBC: 4.5, Hgb: 7.5, Na: 130 corrected, BUN: 72, Cr: 3.68, Lactate: 0.7. Positive Influenza A, Negative COVID test. Negative RSV. ER physician spoke to [facility]: [phone]. installation & maintenance executive was Dr Roberta Reyna who recommended pt did not need transferred at this time and recommends Cefepime with her h/o pseudomonas and renally dosed Tamiflu. Also recommends decreasing tacrolimus to 3mg Q12H secondary to renal functions. Recommends trough in am. Admission Exam Per Admitting Provider General: no distress on 2L oxygen, chronic ill appearing Head: normocephalic, atraumatic Eyes: PERRL, EOM's intact, conjunctiva non-injected, anicteric ENT: hard of hearing, normal inspection external ears, nose, mucous membranes dry Neck: supple, trachea midline Lungs: On 2L O2 via NC, +rhonchi CV: RRR, no JVD, no pretibial edema Abd: +G-J tube in place, normal BS, soft, non-tender Ext: no cyanosis, no calf tenderness Neuro: A&O x 3, no focal deficits noted, normal affect Skin: warm, dry Principal Diagnosis Acute on chronic respiratory failure with hypoxia Influenza A infection History of lung transplant, severe COPD, immunocompromise state Pancytopenia, neutropenia ROYER on CKD 3 Hyponatremia Discharge Exam General Appearance: Thin, chronically ill appearing Head: normocephalic, Atraumatic Eyes: normal inspection, EOMI Neck: supple, Trachea midline Respiratory/Chest: + mild diffuse rhonchi, improved air movement Cardiovascular: S1, S2, No murmur Abdomen/GI:Soft, Non tender, + PEG tube, Bowel sounds present Extremities/Musculoskeletal:normal inspection, no edema Neurologic/Psych:AAOX3, speech fluent, moves extremities Skin: normal color, warm Discharge Data Allergies Allergy/AdvReac Type Severity Reaction Status Date / Time glimepiride AdvReac Severe Fainting Verified 05/07/21 12:01 Consultations 05/07/21 13:21 ED Decision to Admit Stat 05/07/21 15:12 Consult Nephrology Routine Ordered Studies 05/07/21 10:13 CT head/brain wo con Stat Impression: 1. No acute infarct or intracranial hemorrhage. 2. Mild acute paranasal sinusitis. 05/07/21 11:22 CT chest diagnostic wo con Stat IMPRESSION: 1. Compared to the previous examination, there is increased small left pleural effusion and left lower lobe atelectasis. Additionally, there is mucous plugging present in left lower lobe bronchiectasis with no confluent alveolar opacity or air bronchogram. 2. There is again evidence of bilateral lung transplantation. 3. Bronchiectasis is also seen involving the right middle lobe and right lower lobe. 4. Cardiomegaly with enlargement of the left main pulmonary artery is again seen characteristic of pulmonary hypertension. Hospital Course (1) Influenza A: (2) Hypoxia: (3) Lung transplant status, bilateral: 60 yo F with H/O Bilateral lung transplant in 2019 at [facility] with complicated course including difficulty weaning off the ventilator requiring tracheostomy, recurrent pneumonia and airway stenosis with stent in right bronchus intermedius, h/o pulmonary hypertension no longer on medications, paroxysmal Afib, CKD III, history chronic nausea and vomiting with G-J tube in place with tube feedings, anemia and others listed below presented to ER with c/o weakness x 1 week. SOB past couple of days. +Influenza and COVID vaccinations. Acute on chronic respiratory failure with hypoxia-POA Uses oxygen on and off at home 1.5-2L oxygen (from her friend) Influenza A Mucous plugging Immunocompromised state H/O lung transplant, severe COPD Negative COVID test. Negative RSV. -CT Chest Compared to the previous examination, there is increased small left pleural effusion and left lower lobe atelectasis. Additionally, there is mucous plugging present in left lower lobe bronchiectasis with no confluent alveolar opacity or air bronchogram. There is again evidence of bilateral lung transplantation. Bronchiectasis is also seen involving the right middle lobe and right lower lobe. Cardiomegaly with enlargement of the left main pulmonary artery is again seen characteristic of pulmonary hypertension. --ER physician discussed spoke to [facility]: [phone]. installation & maintenance executive was Dr Roberta Reyna: Recommends no need for transfer at this time. Recommends Cefepime with her h/o pseudomonas and renally dosed Tamiflu. Also recommends decreasing tacrolimus to 3mg Q12H secondary to renal functions and checking tacrolimus level. --Tacrolimus level 20.3 (on 05/08), 24.2 (on 05/11) --Procalcitonin 1.13 --Continue cefepime --Also on chronic suppressive therapy azithromycin, valganciclovir, tacrolimus.Bactrim on hold(takes on Mondays, ) --Finished oseltamivir (tamiflu) course --Blood cultures negative to date --Pulmonary hygiene with vest, flutter --Consider pulmonology evaluation if needed --Tacrolimus dose decreased to 3 mg twice daily given ROYER Monitor renal function Continue home inhalers and albuterol nebulizers Currently saturating on room air vs. 2L - 2 step study obtained - pt did not qualify for O2 Clinically improved PT/OT eval Discussed with [facility] Trans[facility] Dr. Primitivo Haley: Continue tacrolimus 3 mg twice daily for now until renal function normalized Repeat tacrolimus, everolimus levels. Given history of Pseudomonas, check sputum culture Continue IV cefepime to complete 10 to 14-day course unless sputum culture returns negative. If sputum culture remains negative, can transition IV cefepime to cefuroxime 500 mg twice daily to complete 10 to 14-day course Okay to hold Bactrim for 2 weeks Needs follow-up with [facility] in 1 week upon discharge with repeat CBC 05/15 - sputum cultx obtained - so far shows normal santi 05/16 -creatinine normalized, at 1.5, therefore will discharge patient on home tacrolimus dose of 4.5 mg twice a day. Patient will discuss further with her transplant team. Sputum culture so far only shows normal santi. She finished 10 days of cefepime already, will discharge on cefuroxime for next 4 days. She will follow up further with PCP and transplant team. Pancytopenia Neutropenia Likely multifactorial Neutropenic precautions Transfuse PRBCs as needed Anemia work-up reviewed fecal occult negative Peripheral smear not suggestive of myelodysplasia, autoimmune or microangiopathic hemolytic anemia Cytopenia slowly improving Monitor CBC (4) ROYER (acute kidney injury): ROYER on CKD III Baseline Cr: 1.4-1.9 Likely ATN and tacrolimus toxicity Creatinine 3.4>>2.7>2.15>1.86 > 1.6 Continue IV fluids as per nephrology Appreciate nephrology input Cr back to baseline 1.5 (5) Hyponatremia: Corrected Na of 130 on presentation Sodium 137 today (05/16) Monitor H/O Pulmonary hypertension H/O chronic intermittent nausea and vomiting/suspected delayed gastric emptying Has G-J-tube in place. History of it being repositioned 02/2021 Continue domperidone, Elavil Continue tube feeds H/O Paroxysmal Atrial Fibrillation Previously on Amiodarone Continue metoprolol tartrate Anemia of chronic disease Baseline 8-9 No obvious signs of bleeding Hb drop partly dilutional secondary to IV fluids Management as above Hgb 9-10 for past several days, stable Total Time Total Time Spent Total Time Spent (In Minutes): 40 Discharge Plan Discharge Items Patient Disposition: Home - Self-Care Reason For Visit: HYPOXIA, INFLUENZA Discharge Diagnosis: Acute on chronic respiratory failure with hypoxia Influenza A infection History of lung transplant, severe COPD, immunocompromise state Pancytopenia, neutropenia ROYER on CKD 3 Hyponatremia Condition on Discharge: Fair Activity: Per Instructions section Non-emergency contact: Primary Care Provider and Specialist Call non-emergency contact if: you have any medication questions and your symptoms worsen Follow-up/Referrals: Jeferson Vinson MD [Primary Care Provider] - (Date & Time 05/19/2021 2:00 PM Provider Jeferson Vinson III, MD Department [facility] ) Diet: Heart Healthy Diet Texture: Easy to Chew Addtl Attending Provider Instructions: Follow-up with your primary care doctor, the appointment was scheduled for you for May 19. Follow-up with your transplant team, get your blood work done on Monday as usual, and discuss results. Take antibiotics cefuroxime, to finish antibiotic treatment. It was recommended by your transplant team, not to take Bactrim for now, check with them when you should restart taking Bactrim again. Your magnesium level has been slightly on the lower side while in the hospital, take the supplement, and have your magnesium level rechecked. In the hospital, your tacrolimus dose was decreased to 3 mg twice a day given your kidney function was lower. Your kidney function has normalized during your hospital stay. Therefore you can restart your regular dose of tacrolimus however make sure to consult your transplant team. Pending Studies at Discharge: Yes Studies:: Final sputum culture Stand-Alone Forms: My [facility], Smoking Cessation Medications and DC Order Prescriptions: New magnesium oxide 400 mg (241.3 mg magnesium) Tablet 400 mg PO BID Qty: 14 RF: 0 cefuroxime axetil 500 mg tablet 500 mg PO BID 4 Days Qty: 8 RF: 0 Continued pantoprazole [Protonix] 40 mg tablet,delayed release (DR/EC) 40 mg PO DAILY@1200 RF: 0 valganciclovir [Valcyte] 450 mg Tablet 450 mg PO DAILY@1200 RF: 0 Domperidone 20 mg PO QID RF: 0 azithromycin 250 mg tablet 250 mg PO DAILY@1200 RF: 0 amitriptyline 50 mg tablet 50 mg PO HS RF: 0 tacrolimus 1 mg Capsule 4.5 mg PO BID RF: 0 sennosides [senna] 8.6 mg Tablet 8.6 mg PO HS PRN (Reason: Constipation) RF: 0 albuterol sulfate 2.5 mg /3 mL (0.083 %) Solution For Nebulization 2.5 mg INHALATION Q4H PRN (Reason: Shortness Of Breath) RF: 0 citalopram 10 mg tablet 10 mg PO DAILY@1200 RF: 0 acetaminophen 500 mg Tablet 1,000 mg PO HS PRN (Reason: Pain) RF: 0 lorazepam 0.5 mg tablet 0.5 mg sublingual BID RF: 0 metoprolol tartrate 50 mg tablet 50 mg PO BID RF: 0 everolimus (immunosuppressive) 0.5 mg Tablet 2 mg PO BID RF: 0 Breo Ellipta 200-25 mcg/dose blister with device 1 ea INHALATION QAM RF: 0 sulfamethoxazole-trimethoprim [Bactrim] 400-80 mg tablet 1 tab PO 2XWK RF: 0 prochlorperazine maleate [Compazine] 10 mg tablet 10 mg PO BID PRN (Reason: Nausea And Vomiting) RF: 0 hydrocortisone [Cortef] 20 mg tablet See Rx Instructions .ROUTE .COMPLEX RF: 0 Discharge Orders: Discharge Order (Routine); Ordered 05/16/21 Ordered By: Mickey Cormier Admission Data Admit Date/Time: 05/07/21 14:05 Attending Provider: Mickey Cormier Admit Provider: Keith Álvarez Primary Care Provider: Jeferson Vinson Other Providers: Keith Álvarez ; Keisha See ; Garrett Steiner
== END 2021-05-16 15:59 | disposition home or self-care (01) | DRG 205 ==
LOC: ED 09:32 → SUATTDRO 14:05 → EDINP 14:05 → 2S 15:57
DX: N17.0 Acute kidney failure with tubular necrosis; T86.818 Other complications of lung transplant; N18.30 Chronic kidney disease, stage 3 unspecified; Z87.891 Personal history of nicotine dependence; Z99.81 Dependence on supplemental oxygen; J96.21 Acute and chronic respiratory failure with hypoxia; D61.818 Other pancytopenia; J10.1 Influenza due to other identified influenza virus with other respiratory manifestations; D63.8 Anemia in other chronic diseases classified elsewhere; J44.9 Chronic obstructive pulmonary disease, unspecified; E87.1 Hypo-osmolality and hyponatremia; D70.9 Neutropenia, unspecified; D84.9 Immunodeficiency, unspecified

== ENCOUNTER 2021-05-18 10:40 | Inpatient (IN) ==
[2021-05-18 11:21] LABS: Hematocrit (blood only) 28.7 % (37-47); Hemoglobin 9.1 g/dL (12.0-16.0); Mean Corpuscular Hemoglobin 29.6 pg (25-34); Mean Corpuscular Hgb Conc 31.7 g/dL (32-36); Mean Corpuscular Volume 93.5 fL (80-100); RDW Coefficient of Variation 18.6 % (11.5-14.5); RDW Standard Deviation 63.6 fL (36.4-46.3); Red Blood Count 3.07 M/uL (4.2-5.4); White Blood Count 3.92 K/uL (4.8-10.8)
[2021-05-18 11:25] LABS: Mean Platelet Volume 10.3 fL (7.4-10.4); Platelet Count 86 K/uL (130-400)
[2021-05-18 11:39] LABS: Albumin Level 2.7 gm/dl (3.4-5.0); BUN Creatinine Ratio 36.5 (10-20); Calcium 10.2 mg/dl (8.5-10.1); Creatinine Clr Calc Pharmacy 40.6 ml/min; Est GFR (African American) 53.9 ml/min; Est GFR (Non-African American) 46.5 ml/min; Potassium 4.5 mmol/L (3.5-5.1)
[2021-05-18 11:42] LABS: Albumin Globulin Ratio 0.7 (0.9-2); Bilirubin,Total 0.4 mg/dl (0.2-1); Globulin 3.9 gm/dl (2.5-4.0); Total Protein 6.6 gm/dl (6.4-8.2)
[2021-05-18 12:03] LABS: Basophils # (auto) 0.03 K/uL (0-0.2); Basophils % (auto) 0.8 %; Dohle Bodies 1+; Eosinophils # (auto) 0.01 K/uL (0-0.5); Eosinophils % (auto) 0.3 %; Hypogranular Neutrophils 1+; Immature Granulocytes # (auto) 0.03 K/uL (0.00-0.02); Immature Granulocytes % (auto) 0.8 %; Lymphocytes # (auto) 0.56 K/uL (1.2-3.4); Lymphocytes % (auto) 14.3 %; Monocytes # (auto) 0.01 K/uL (0.11-0.59); Monocytes % (auto) 0.3 %; Neutrophils # (auto) 3.28 K/uL (1.4-6.5); Neutrophils % (auto) 83.5 %; Platelet Estimate Decreased (Normal)
--- NOTE | 2021-05-18 14:11 | Emergency Department Note ---
Impression & Plan Altered mental status, High serum calcium, Thrombocytopenia ED Provider Note NAME: ANTWON TAI AGE: 60 SEX: F : 1960 ARRIVES VIA: Walk-In INFORMANT: Patient ED PROVIDER(S): Nolan Blankenship DO CHIEF COMPLAINT: confusion HPI: Patient is a 60-year-old female with a past medical history of COPD with a lung transplant, A. fib, ROYER and recent influenza A with hospital admission that presents the ER for confusion. She was treated with antibiotics and IV fluids and discharged. She has been taking all of her medications and started cefuroxime after being discharged 2 days ago. She believes the confusion started then. She notes she has trouble getting her words out. She denies any headache or change in vision. No chest pain or shortness of breath. No belly pain nausea vomiting or diarrhea. No dysuria urgency or frequency. No other exacerbating or remitting factors. ROS: See above HPI for pertinent positives & negatives. A total of 10 systems reviewed and were otherwise negative. PAST MEDICAL HISTORY:See Below PAST SURGICAL HISTORY:See Below FAMILY HISTORY:See Below SOCIAL HISTORY:See Below HOME MEDICATIONS:See Below ALLERGIES:See Below VITALS:See Below PHYSICAL EXAMINATION: GENERAL: Sitting up in bed, alert, well appearing, well nourished, no distress, non-toxic EYE EXAM: normal conjunctiva. PERRL and EOM's grossly intact. OROPHARYNX: no exudate, no erythema, lips, buccal mucosa, and tongue normal and mucous membranes are moist NECK: supple, no nuchal rigidity, no adenopathy, non-tender LUNGS: Clear to auscultation. Normal chest wall mechanics HEART: no murmurs, S1 normal and S2 normal ABDOMEN: abdomen soft, non-tender, normo-active bowel sounds, no masses, no rebound or guarding. UPPER EXTREMITIES: upper extremities are grossly normal. LOWER EXTREMITIES: No pitting edema. NEURO EXAM: Normal sensorium, cranial nerves II-XII intact, normal speech, no weakness of arms, no weakness of legs. No drift. Finger to nose intact. Gross sensation intact. MEDICAL DECISION MAKING: Patient is a 58-year-old female who presents the ER after recent admission and discharge for word finding. IV was established blood was obtained. Labs show mild leukopenia 3.9. There is mild anemia at 9.1. Platelets are slightly lower at 86 down from admission. BMP with creatinine 1.2. LFTs bilirubin was unremarkable. UA was clean. Covid was negative. CT head as well as angios of the head and neck did show some stenosis but no culprit lesions. Patient completely neurologically intact. She was updated bedside discussed with hospitalist admitted for further work-up. Triage Nursing notes reviewed. Limited review of prior medical records performed Vital Signs: reviewed and remarkable for HTN Differential diagnosis: Differential diagnoses includes but is not limited to toxic, metabolic, infectious, traumatic, cardiac, neurologic, hematologic, psychiatric and inflammatory etiologies. ER treatment provided: See below Diagnostics interpreted by me: ECG: Sinus rhythm at 81 Normal axis No PVCs T wave inversion in the septal leads QTC 439 No significant change from previous Cardiac Monitoring: An order was placed for continuous cardiac monitoring. The monitor shows a rate of 70 with sinus rhythm. Laboratory studies: As stated above and show below. Imaging studies: See below Consultation(s): Discussed with Dr. Shaw who recently had this patient on her service Procedures: none Critical Care: None Past Med/Surg History Medical History ASCUS of cervix with negative high risk HPV Bronchiectasis following lung transplantation Cholesteatoma of both middle ears Chronic mastoiditis Chronic obstructive pulmonary disease Chronic respiratory failure with hypoxia and hypercapnia Chronic tympanomastoiditis Encounter for mastoidectomy cavity debridement History of actinic keratosis Hypercholesterolemia LGSIL on Pap smear of cervix Osteoporosis Paroxysmal A-fib Postmenopausal Pulmonary emphysema Pulmonary hypertension Surgical History History of colposcopy History of ear surgery Hx of colonoscopy Hx of tonsillectomy Lung transplant status, bilateral 11/11/2019 [facility] Presby S/P cardiac cath S/P dilation and curettage S/P wisdom tooth extraction Family History Mother Adenocarcinoma of lung Osteoporosis Rheumatoid arthritis Lung cancer Myocardial infarction Aunt Breast cancer maternal aunt Grandfather (Paternal) Colorectal cancer Father Lung cancer Denies family history of Ovarian cancer Social History Smoking Status: Never smoker Tobacco Type: Cigarettes Cigarettes Per Day: 1 ppd for 23 years; Second Hand Exposure: No; Hx Alcohol Use: No Hx Substance Use: No Preferred Language: Nauruan Communication Ability: Effective 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 Beliefs That Will Affect Care: None marital status: Current Living Situation: Spouse Feels Safe at Home: Yes Assistive Devices: Walker Allergies Allergies Allergy/AdvReac Type Severity Reaction Status Date / Time glimepiride AdvReac Severe Fainting Verified 05/18/21 15:22 Home Meds Home Medications Medication Instructions Recorded Confirmed pantoprazole 40 mg tablet,delayed 40 mg PO DAILY@1200 01/24/20 05/18/21 release (Protonix) valganciclovir 450 mg tablet 450 mg PO DAILY@1200 01/24/20 05/18/21 (Valcyte) hydrocortisone 20 mg tablet See Rx Instructions .ROUTE .COMPLEX 09/08/20 05/18/21 (Cortef) prochlorperazine maleate 10 mg 10 mg PO BID PRN 09/08/20 05/18/21 tablet (Compazine) sulfamethoxazole 400 1 tab PO 2XWK 09/08/20 05/18/21 mg-trimethoprim 80 mg tablet (Bactrim) Domperidone 20 mg PO QID 10/21/20 05/18/21 amitriptyline 50 mg tablet 50 mg PO HS 02/09/21 05/18/21 tacrolimus 1 mg capsule, 4.5 mg PO BID 02/09/21 05/18/21 immediate-release acetaminophen 500 mg tablet 1,000 mg PO HS PRN 05/07/21 05/18/21 albuterol sulfate 2.5 mg INHALATION Q4H PRN 05/07/21 05/18/21 citalopram 10 mg tablet 10 mg PO DAILY@1200 05/07/21 05/18/21 everolimus (immunosuppressive) 0.5 2 mg PO BID 05/07/21 05/18/21 mg tablet fluticasone furoate 200 1 ea INHALATION QAM 05/07/21 05/18/21 mcg-vilanterol 25 mcg/dose inhalation powder (Breo Ellipta) lorazepam 0.5 mg tablet 0.5 mg SUBLINGUAL BID 05/07/21 05/18/21 metoprolol tartrate 50 mg tablet 50 mg PO BID 05/07/21 05/18/21 sennosides 8.6 mg tablet (senna) 8.6 mg PO HS PRN 05/07/21 05/18/21 azithromycin 250 mg tablet 250 mg PO DAILY@1200 05/18/21 05/18/21 Previous Rx's Medication Instructions Recorded cefuroxime axetil 500 mg tablet 500 mg PO BID 4 Days #8 tab 05/16/21 magnesium oxide 400 mg (241.3 mg 400 mg PO BID #14 tab 05/16/21 magnesium) tablet Results & Data (ED) Vital Signs Vital Signs - 24 hr 05/18/21 10:50 05/18/21 13:17 05/18/21 13:20 Temperature 36.6 C Temperature Source Skin Pulse Rate 81 71 Pulse Rate [Apical] 71 Pulse Rate from SpO2 Sensor 73 Respiratory Rate 18 47 H 20 Blood Pressure 119/80 Blood Pressure [Right Arm] 170/80 H Blood Pressure Mean 93 Blood Pressure Mean [Right Arm] 110 Pulse Oximetry 92 94 96 Oxygen Delivery Method Room Air Room Air Sepsis Recent Fever Within 48 Hours No Sepsis New/Unexplained Change in Mental Status No Sepsis Action Taken by Nursing No Action Required 05/18/21 13:30 05/18/21 14:00 05/18/21 14:30 Temperature Temperature Source Pulse Rate 68 73 72 Pulse Rate [Apical] Pulse Rate from SpO2 Sensor 68 75 73 Respiratory Rate 32 H 24 27 H Blood Pressure 155/82 H 148/88 H Blood Pressure [Right Arm] Blood Pressure Mean 106 108 Blood Pressure Mean [Right Arm] Pulse Oximetry 97 95 96 Oxygen Delivery Method Sepsis Recent Fever Within 48 Hours Sepsis New/Unexplained Change in Mental Status Sepsis Action Taken by Nursing 05/18/21 15:00 05/18/21 16:00 05/18/21 16:30 Temperature Temperature Source Pulse Rate 71 82 80 Pulse Rate [Apical] Pulse Rate from SpO2 Sensor 71 Respiratory Rate 37 H Blood Pressure Blood Pressure [Right Arm] Blood Pressure Mean Blood Pressure Mean [Right Arm] Pulse Oximetry 96 Oxygen Delivery Method Sepsis Recent Fever Within 48 Hours Sepsis New/Unexplained Change in Mental Status Sepsis Action Taken by Nursing 05/18/21 17:00 05/18/21 17:30 Temperature Temperature Source Pulse Rate 82 71 Pulse Rate [Apical] Pulse Rate from SpO2 Sensor 80 71 Respiratory Rate 25 H Blood Pressure Blood Pressure [Right Arm] Blood Pressure Mean Blood Pressure Mean [Right Arm] Pulse Oximetry 95 95 Oxygen Delivery Method Sepsis Recent Fever Within 48 Hours Sepsis New/Unexplained Change in Mental Status Sepsis Action Taken by Nursing Laboratory Data Result diagrams: 05/18/21 11:10 05/18/21 11:10 Lab Results 05/18/21 05/18/21 05/18/21 Range/Units 11:10 11:10 11:10 WBC 3.92 L (4.8-10.8) K/uL RBC 3.07 L (4.2-5.4) M/uL Hgb 9.1 L (12.0-16.0) g/dL Hct 28.7 L (37-47) % MCV 93.5 (80-100) fL MCH 29.6 (25-34) pg MCHC 31.7 L (32-36) g/dL RDW Std Deviation 63.6 H (36.4-46.3) fL RDW Coeff of Janina 18.6 H (11.5-14.5) % Plt Count 86 L (130-400) K/uL MPV 10.3 (7.4-10.4) fL Immature Gran % (Auto) 0.8 % Neut % (Auto) 83.5 % Lymph % (Auto) 14.3 % Cooper % (Auto) 0.3 % Eos % (Auto) 0.3 % Baso % (Auto) 0.8 % Neut # (Auto) 3.28 (1.4-6.5) K/uL Lymph # (Auto) 0.56 L (1.2-3.4) K/uL Cooper # (Auto) 0.01 L (0.11-0.59) K/uL Eos # (Auto) 0.01 (0-0.5) K/uL Baso # (Auto) 0.03 (0-0.2) K/uL Immature Gran # (Auto) 0.03 H (0.00-0.02) K/uL Hypogranular Neuts 1+ Dohle Bodies 1+ Platelet Estimate Decreased L (Normal) Sodium 135 L (136-145) mmol/L Potassium 4.5 (3.5-5.1) mmol/L Chloride 103 (98-107) mmol/L Carbon Dioxide 27 (21-32) mmol/L Anion Gap 5.0 (3-11) BUN 45 H (7-18) mg/dl Creatinine 1.24 H (0.6-1.2) mg/dl Est Cr Clr Drug Dosing 40.6 ml/min Est GFR ( Amer) 53.9 ml/min Est GFR (Non-Af Amer) 46.5 ml/min BUN/Creatinine Ratio 36.5 H (10-20) Glucose 125 H (70-99) mg/dl Calcium 10.2 H (8.5-10.1) mg/dl Total Bilirubin 0.4 (0.2-1) mg/dl AST 32 (15-37) U/L ALT 34 (12-78) Alkaline Phosphatase 122 H (45-117) U/L Troponin I 0.024 (0-0.045) ng/ml Total Protein 6.6 (6.4-8.2) gm/dl Albumin 2.7 L (3.4-5.0) gm/dl Globulin 3.9 (2.5-4.0) gm/dl Albumin/Globulin Ratio 0.7 L (0.9-2) Urine Color Urine Appearance (Clear) Urine pH (4.5-7.5) Ur Specific Henry (1.000-1.030) Urine Protein (Negative) Urine Glucose (UA) (Negative) Urine Ketones (Negative) Urine Blood (Negative) Urine Nitrite (Negative) Urine Bilirubin (Negative) Urine Urobilinogen (Negative) Ur Leukocyte Esterase (Negative) Urine WBC (Auto) (0-5) /hpf Urine RBC (Auto) (0-4) /hpf U Hyaline Cast (Auto) (0-5) /lpf U Epithel Cells (Auto) (0-5) /lpf Urine Bacteria (Auto) (Negative) SARS-CoV-2, RNA, NAAT (NEGATIVE) 05/18/21 05/18/21 Range/Units 14:23 18:45 WBC (4.8-10.8) K/uL RBC (4.2-5.4) M/uL Hgb (12.0-16.0) g/dL Hct (37-47) % MCV (80-100) fL MCH (25-34) pg MCHC (32-36) g/dL RDW Std Deviation (36.4-46.3) fL RDW Coeff of Janina (11.5-14.5) % Plt Count (130-400) K/uL MPV (7.4-10.4) fL Immature Gran % (Auto) % Neut % (Auto) % Lymph % (Auto) % Cooper % (Auto) % Eos % (Auto) % Baso % (Auto) % Neut # (Auto) (1.4-6.5) K/uL Lymph # (Auto) (1.2-3.4) K/uL Cooper # (Auto) (0.11-0.59) K/uL Eos # (Auto) (0-0.5) K/uL Baso # (Auto) (0-0.2) K/uL Immature Gran # (Auto) (0.00-0.02) K/uL Hypogranular Neuts Dohle Bodies Platelet Estimate (Normal) Sodium (136-145) mmol/L Potassium (3.5-5.1) mmol/L Chloride (98-107) mmol/L Carbon Dioxide (21-32) mmol/L Anion Gap (3-11) BUN (7-18) mg/dl Creatinine (0.6-1.2) mg/dl Est Cr Clr Drug Dosing ml/min Est GFR ( Amer) ml/min Est GFR (Non-Af Amer) ml/min BUN/Creatinine Ratio (10-20) Glucose (70-99) mg/dl Calcium (8.5-10.1) mg/dl Total Bilirubin (0.2-1) mg/dl AST (15-37) U/L ALT (12-78) Alkaline Phosphatase (45-117) U/L Troponin I (0-0.045) ng/ml Total Protein (6.4-8.2) gm/dl Albumin (3.4-5.0) gm/dl Globulin (2.5-4.0) gm/dl Albumin/Globulin Ratio (0.9-2) Urine Color Yellow Urine Appearance Clear (Clear) Urine pH 8.0 H (4.5-7.5) Ur Specific Henry 1.013 (1.000-1.030) Urine Protein 1+ H (Negative) Urine Glucose (UA) Negative (Negative) Urine Ketones Negative (Negative) Urine Blood Trace H (Negative) Urine Nitrite Negative (Negative) Urine Bilirubin Negative (Negative) Urine Urobilinogen Negative (Negative) Ur Leukocyte Esterase Negative (Negative) Urine WBC (Auto) 1-5 (0-5) /hpf Urine RBC (Auto) 0-4 (0-4) /hpf U Hyaline Cast (Auto) 1-5 (0-5) /lpf U Epithel Cells (Auto) 10-20 H (0-5) /lpf Urine Bacteria (Auto) Negative (Negative) SARS-CoV-2, RNA, NAAT NEGATIVE (NEGATIVE) Administered Medications Discontinued Medications Ioversol (Optiray 320 125ml) 120 ml IV ONCE ONE Stop: 05/18/21 15:26 Last Admin: 05/18/21 15:35 Dose: 120 ml Documented by: [id number] Imaging Data Radiologist's Impression: Chest X-Ray 05/18/21 14:06 XR chest 1V portable HISTORY: confusion COMPARISON: Chest 05/09/2021. FINDINGS: No pneumothorax. The heart remains mildly enlarged. Postoperative changes again noted. There is a right bronchial stent which is unchanged in posi tion. There are suture material within the left lung base. No evidence for pulmonary edema. Patchy left basilar densities and a small left pleural effusion persists. There is mild chronic interstitial thickening, unchanged. IMPRESSION: 1. No change compared to the prior study. 2. Patchy left basilar densities and a small left pleural effusion persists. 3. Stable cardiomegaly and mild chronic interstitial thickening. ACT 112: Negative or not required by law. Electronically signed by: Dirk Evans M.D. 05/18/2021 2:24 PM Head CTA 05/18/21 14:06 CT angio head wo/w, CT angio neck with con HISTORY: 60 years-old Female confusion acutely altered mental status COMPARISON: Head CT 05/07/2021, chest CT 05/07/2021. TECHNIQUE: CTA of the head was obtained both with and without the use of 120 mL Optiray. 3-D coronal and sagittal MIPS were obtained from the axial data set and were submitted for review. CTA neck was also obtained. All measurements were obtained according to NASCET criteria. A dose lowering technique was used consistent with the principals of CORBY. FINDINGS: CT HEAD: Age-related involutional changes. Mild white matter hypodensities are unchanged suggestive of chronic microvascular ischemic disease. There is no acute intracranial hemorrhage, midline shift, abnormal extra-axial collection, hydrocephalus, acute territorial infarct or intracranial mass. No acute calvarial fracture. Right partial mastoidectomy. The left mastoid air cells are clear. Mild to moderate mucosal thickening of the frontal and ethmoid sinuses. Unremarkable soft tissues and orbits. CTA HEAD AND NECK: Three-vessel morphology of the thoracic aortic arch. There is patency of the innominate and imaged subclavian arteries. The common carotid arteries are patent. Moderate atherosclerotic plaque of the left carotid bulb and proximal left ICA results in less than 50% stenosis. Moderate to severe atherosclerotic plaque of the right carotid bulb and proximal right ICA causes approximately 60% stenosis. The internal carotid arteries otherwise widely patent. The middle and anterior cerebral arteries are patent. The vertebral arteries are patent. The basilar and posterior cerebral arteries are patent. The cerebral venous sinuses are patent. There is no abnormal intracranial enhancement. Mild biapical pleural-parenchymal scarring. 6 mm subpleural nodule of the left l leigha apex with 6 cm subpleural nodular density of the right lung apex. 1.6 cm nodule is noted along the posterior aspect of the right thyroid which may represent an exophytic thyroid nodule versus parathyroid adenoma. Mild to moderate mucosal thickening of the paranasal sinuses. Developmental incomplete bony fusion involves the posterior arch of C1. Multilevel degenerative changes of the imaged cervical spine. IMPRESSION: 1. No acute intracranial abnormality. 2. Moderate to severe atherosclerotic plaque of the right carotid bulb results in approximately 60% stenosis of the proximal right ICA. 3. Otherwise unremarkable CTA of the head and neck. ACT 112: Negative or not required by law. The above report was generated using voice recognition software. It may contain grammatical, syntax or spelling errors. Electronically signed by: Andrés Hood M.D. 05/18/2021 3:55 PM Neck CTA 05/18/21 14:06 CT angio head wo/w, CT angio neck with con HISTORY: 60 years-old Female confusion acutely altered mental status COMPARISON: Head CT 05/07/2021, chest CT 05/07/2021. TECHNIQUE: CTA of the head was obtained both with and without the use of 120 mL Optiray. 3-D coronal and sagittal MIPS were obtained from the axial data set and were submitted for review. CTA neck was also obtained. All measurements were obtained according to NASCET criteria. A dose lowering technique was used cons istent with the principals of CORBY. FINDINGS: CT HEAD: Age-related involutional changes. Mild white matter hypodensities are unchanged suggestive of chronic microvascular ischemic disease. There is no acute intracranial hemorrhage, midline shift, abnormal extra-axial collection, hydrocephalus, acute territorial infarct or intracranial mass. No acute calvarial fracture. Right partial mastoidectomy. The left mastoid air cells are clear. Mild to moderate mucosal thickening of the frontal and ethmoid sinuses. Unremarkable soft tissues and orbits. CTA HEAD AND NECK: Three-vessel morphology of the thoracic aortic arch. There is patency of the innominate and imaged subclavian arteries. The common carotid arteries are patent. Moderate atherosclerotic plaque of the left carotid bulb and proximal left ICA results in less than 50% stenosis. Moderate to severe atherosclerotic plaque of the right carotid bulb and proximal right ICA causes approximately 60% stenosis. The internal carotid arteries otherwise widely patent. The middle and anterior cerebral arteries are patent. The vertebral arteries are patent. The basilar and posterior cerebral arteries are patent. The cerebral venous sinuses are patent. There is no abnormal intracranial enhancement. Mild biapical pleural-parenchymal scarring. 6 mm subpleural nodule of the left lung apex with 6 cm subpleural nodular density of the right lung apex. 1.6 cm nodule is noted along the posterior aspect of the right thyroid which may represent an exophytic thyroid nodule versus parathyroid adenoma. Mild to moderate mucosal thickening of the paranasal sinuses. Developmental incomplete bony fusion involves the posterior arch of C1. Multilevel degenerative changes of the imaged cervical spine. IMPRESSION: 1. No acute intracranial abnormality. 2. Moderate to severe atherosclerotic plaque of the right carotid bulb results in approximately 60% stenosis of the proximal right ICA. 3. Otherwise unremarkable CTA of the head and neck. ACT 112: Negative or not required by law. The above report was generated using voice recognition software. It may contain grammatical, syntax or spelling errors. Electronically signed by: Andrés Hood M.D. 05/18/2021 3:55 PM Discharge Plan Visit Data Chief Complaint: Illness Stated Complaint: DISORIENTED, STARTED NEW MEDS 05/16 ED Provider: Nolan Blankenship Discharge Problem: Altered mental status, High serum calcium, Thrombocytopenia Forms Stand Alone Forms: [facility] Prescriptions Prescriptions: No Action pantoprazole [Protonix] 40 mg tablet,delayed release (DR/EC) 40 mg PO DAILY@1200 RF: 0 valganciclovir [Valcyte] 450 mg Tablet 450 mg PO DAILY@1200 RF: 0 Domperidone 20 mg PO QID RF: 0 amitriptyline 50 mg tablet 50 mg PO HS RF: 0 tacrolimus 1 mg Capsule 4.5 mg PO BID RF: 0 sennosides [senna] 8.6 mg Tablet 8.6 mg PO HS PRN (Reason: Constipation) RF: 0 albuterol sulfate 2.5 mg /3 mL (0.083 %) Solution For Nebulization 2.5 mg INHALATION Q4H PRN (Reason: Shortness Of Breath) RF: 0 citalopram 10 mg tablet 10 mg PO DAILY@1200 RF: 0 acetaminophen 500 mg Tablet 1,000 mg PO HS PRN (Reason: Pain) RF: 0 lorazepam 0.5 mg tablet 0.5 mg sublingual BID RF: 0 metoprolol tartrate 50 mg tablet 50 mg PO BID RF: 0 everolimus (immunosuppressive) 0.5 mg Tablet 2 mg PO BID RF: 0 Breo Ellipta 200-25 mcg/dose blister with device 1 ea INHALATION QAM RF: 0 magnesium oxide 400 mg (241.3 mg magnesium) Tablet 400 mg PO BID Qty: 14 RF: 0 cefuroxime axetil 500 mg tablet 500 mg PO BID 4 Days Qty: 8 RF: 0 azithromycin 250 mg Tablet 250 mg PO DAILY@1200 RF: 0 sulfamethoxazole-trimethoprim [Bactrim] 400-80 mg tablet 1 tab PO 2XWK RF: 0 prochlorperazine maleate [Compazine] 10 mg tablet 10 mg PO BID PRN (Reason: Nausea And Vomiting) RF: 0 hydrocortisone [Cortef] 20 mg tablet See Rx Instructions .ROUTE .COMPLEX RF: 0 Referrals Referrals: Jeferson Vinson MD [Primary Care Provider] - Discharge Problem: Altered mental status Qualifiers: Altered mental status type: unspecified Qualified Code(s): R41.82 - Altered mental status, unspecified
--- NOTE | 2021-05-18 14:25 | XRay Report ---
XR chest 1V portable HISTORY: confusion COMPARISON: Chest 05/09/2021. FINDINGS: No pneumothorax. The heart remains mildly enlarged. Postoperative changes again noted. Ther e is a right bronchial stent which is unchanged in position. There are suture material within the lef t lung base. No evidence for pulmonary edema. Patchy left basilar densities and a small left pleural effusion persists. There is mild chronic interstitial thickening, unchanged. IMPRESSION: 1. No change compared to the prior study. 2. Patchy left basilar densities and a small left pleural effusion persists. 3. Stable cardiomegaly and mild chronic interstitial thickening. ACT 112: Negative or not required by law. Electronically signed by: Dirk Evans M.D. 05/18/2021 2:24 PM
[2021-05-18 15:06] LABS: Appearance Urine Clear (Clear); Bacteria Urine Automated Negative (Negative); Bilirubin Urine Negative (Negative); Blood Urine Trace (Negative); Color Urine Yellow; Glucose Urine UA Negative (Negative); Ketones Urine Negative (Negative); Leukocyte Esterase Urine Negative (Negative); Nitrite Urine Negative (Negative); RBC Urine Automated 0-4 /hpf (0-4); Specific Gravity Urine 1.013 (1.000-1.030); Urobilinogen Urine Negative (Negative)
[2021-05-18 15:11] LABS: Protein Urine 1+ (Negative)
[2021-05-18] MEDS ORDERED: OPTIRAY 320 125ml IV ONE (15:25)
--- NOTE | 2021-05-18 15:56 | CT Scan Report ---
CT angio head wo/w, CT angio neck with con HISTORY: 60 years-old Female confusion acutely altered mental status COMPARISON: Head CT 05/07/2021, chest CT 05/07/2021. TECHNIQUE: CTA of the head was obtained both with and without the use of 120 mL Optiray. 3-D coronal and sagittal MIPS were obtained from the axial data set and were submitted for review. CTA neck was a lso obtained. All measurements were obtained according to NASCET criteria. A dose lowering technique was used consistent with the principals of CORBY. FINDINGS: CT HEAD: Age-related involutional changes. Mild white matter hypodensities are unchanged suggestive of chronic microvascular ischemic disease. There is no acute intracranial hemorrhage, midline shift, abnormal e xtra-axial collection, hydrocephalus, acute territorial infarct or intracranial mass. No acute calvar ial fracture. Right partial mastoidectomy. The left mastoid air cells are clear. Mild to moderate muc osal thickening of the frontal and ethmoid sinuses. Unremarkable soft tissues and orbits. CTA HEAD AND NECK: Three-vessel morphology of the thoracic aortic arch. There is patency of the innominate and imaged sen bclavian arteries. The common carotid arteries are patent. Moderate atherosclerotic plaque of the lef t carotid bulb and proximal left ICA results in less than 50% stenosis. Moderate to severe atheroscle rotic plaque of the right carotid bulb and proximal right ICA causes approximately 60% stenosis. The internal carotid arteries otherwise widely patent. The middle and anterior cerebral arteries are cueto nt. The vertebral arteries are patent. The basilar and posterior cerebral arteries are patent. The ce rebral venous sinuses are patent. There is no abnormal intracranial enhancement. Mild biapical pleural-parenchymal scarring. 6 mm subpleural nodule of the left lung apex with 6 cm sen bpleural nodular density of the right lung apex. 1.6 cm nodule is noted along the posterior aspect of the right thyroid which may represent an exophytic thyroid nodule versus parathyroid adenoma. Mild t o moderate mucosal thickening of the paranasal sinuses. Developmental incomplete bony fusion involves the posterior arch of C1. Multilevel degenerative changes of the imaged cervical spine. IMPRESSION: 1. No acute intracranial abnormality. 2. Moderate to severe atherosclerotic plaque of the right carotid bulb results in approximately 60% s tenosis of the proximal right ICA. 3. Otherwise unremarkable CTA of the head and neck. ACT 112: Negative or not required by law. The above report was generated using voice recognition software. It may contain grammatical, syntax o r spelling errors. Electronically signed by: Andrés Hood M.D. 05/18/2021 3:55 PM
--- NOTE | 2021-05-18 18:04 | History & Physical Report ---
Date of Service May 18, 2021 Assessment & Plan (1) Altered mental status: (2) Lung transplant status, bilateral: Plan: Possibly secondary to nocturnal hypoxia vs. ongoing pneumonia vs. new medication vs. tacrolimus toxicity Most likely 2/2 nocturnal hypoxia Pt presents w/ confusion , difficulty using cell phone Took cefuroxime earlier - pt feels this can be due to new medication Reports feeling tired Monday morning and not even taking her AM meds (pt discharged on Monday, feeling well) While in the hospital pt used suppl. O2 but after 2 step study did not qualify for home oxygen Finished 10 day Abx course w/ cefuroxime while hospitalized, sputum cultx negative CXR in ED unchanged, but pt continues to have course breath sounds Stroke work up - in ED CTA head and neck obtained - Moderate to severe atherosclerotic plaque of the right carotid bulb results in approximately 60% stenosis of the proximal right ICA. 3. Otherwise unremarkable CTA of the head and neck. Tacrolimus level obtained and pending - however not likely toxicity as pt did not even take her AM meds and Cr normal in ED (and for the past several days in hosputal) Contacted transplant team at [facility] - agree w/ nocturnal hypoxia study (would like to have bronchoscopy done hopefully later this week at [facility], as pt scheduled for tomorrow/ now cancelled) Don't feel brain MRI or neuro consult necessary as pt is back to baseline and has no deficits Tacrolimus level likely normal as Cr normal - recommend to continue Don't feel necessary to continue cefuroxime as she was treated in the hospital Will cont. home meds Add guaifenesin, flutter valve , chest percussion therapy Obtain Nocturnal hypoxia study Neuro checks Observe on med/tele Will hold off from brain MRI for now, will cont. to closely observe If mental status changes again will consider to further discuss w/ neurology History of Present Illness Chief Complaint: Confusion Primary Care Provider: Jeferson Vinson MD Patient is a 60-year-old female with hx of bilateral lung transplant in 2020 at [facility] with complicated course including difficulty weaning off the ventilator requiring tracheostomy, recurrent pneumonia and airway stenosis with stent in right bronchus intermedius, h/o pulmonary hypertension no longer on medications, paroxysmal atrial fibrillation, CKD III, history chronic nausea and vomiting with G-J tube in place with tube feedings, anemia who presents with confusion. Pt was recently admitted at [facility] and discharged on Monday05/16/2021. At that time she was diagnosed with influenza and treated with Tamiflu. In addition, she was on cefepime for 10 days for hx of Pseudomonas pna. Sputum cultx was obtained prior to her discharge and was negative (however sample is questionable). She was discharged on 4 days course of cefuroxime. During her last admission she presented with ROYER and therefore her tacrolimus dose was decreased to 3 mg BID. Her home dose 4.5 mg BID was resumed on discharge as her Cr was 1.5 which seems back to baseline. She was supposed to hold Bactrim until restarted by her outpt providers/ transplant team. Pt reports feeling well on Monday when she was discharged but then felt tired on Monday morning and did not take any of her medications. She did go get her blood work done (on Mondays she gets blood work for her transplant team) and afterword felt asleep. She reports that in the afternoon when her called her from work and reminded her to take medication she took her cefuroxime. She then reports feeling confused and not knowing how to operate her cell phone. She feels that this lasted throughout the evening and that she did not sleep much last night. In the morning however she felt ok and took all of her medications. She called her transplant team as she was supposed to go there tomorrow for bronchoscopy. On the phone, pt had words finding difficulty and so bronchoscopy was cancelled. Pt was advised to present to the hospital for further evaluation. In the ED pt is alert and oriented, and answering questions appropriately. Sometimes she answers slowly but she also has some difficulty hearing. She is usually quick to answer when she hears/ when I speak louder. This is unchanged from previous - when she was hospitalized here. She has no weakness in her extremities, no sensory loss, no difficulty swallowing, no change in vision. Of note, pt was on 2L of O2 while in the hospital. She reports using O2 from her neighbor. 2 step study was obtained but pt actually did not qualify for oxygen. In the ED, CTA head and neck were obtained, which showed Moderate to severe atherosclerotic plaque of the right carotid bulb resulting in approximately 60% stenosis of the proximal right ICA. Otherwise unremarkable CTA of the head and neck. Cr 1.24 and electrolytes wnl. Pt satting in higher 90s on room air. Allergies Allergy/AdvReac Type Severity Reaction Status Date / Time glimepiride AdvReac Severe Fainting Verified 05/18/21 15:22 Home Medications Medication Instructions Recorded Confirmed Type pantoprazole 40 mg tablet,delayed 40 mg PO DAILY@1200 01/24/20 05/18/21 History release (Protonix) valganciclovir 450 mg tablet 450 mg PO DAILY@1200 01/24/20 05/18/21 History (Valcyte) hydrocortisone 20 mg tablet See Rx Instructions .ROUTE .COMPLEX 09/08/20 05/18/21 History (Cortef) prochlorperazine maleate 10 mg 10 mg PO BID PRN 09/08/20 05/18/21 History tablet (Compazine) sulfamethoxazole 400 1 tab PO 2XWK 09/08/20 05/18/21 History mg-trimethoprim 80 mg tablet (Bactrim) Domperidone 20 mg PO QID 10/21/20 05/18/21 History amitriptyline 50 mg tablet 50 mg PO HS 02/09/21 05/18/21 History tacrolimus 1 mg capsule, 4.5 mg PO BID 02/09/21 05/18/21 History immediate-release acetaminophen 500 mg tablet 1,000 mg PO HS PRN 05/07/21 05/18/21 History albuterol sulfate 2.5 mg INHALATION Q4H PRN 05/07/21 05/18/21 History citalopram 10 mg tablet 10 mg PO DAILY@1200 05/07/21 05/18/21 History everolimus (immunosuppressive) 0.5 2 mg PO BID 05/07/21 05/18/21 History mg tablet fluticasone furoate 200 1 ea INHALATION QAM 05/07/21 05/18/21 History mcg-vilanterol 25 mcg/dose inhalation powder (Breo Ellipta) lorazepam 0.5 mg tablet 0.5 mg SUBLINGUAL BID 05/07/21 05/18/21 History metoprolol tartrate 50 mg tablet 50 mg PO BID 05/07/21 05/18/21 History sennosides 8.6 mg tablet (senna) 8.6 mg PO HS PRN 05/07/21 05/18/21 History cefuroxime axetil 500 mg tablet 500 mg PO BID 4 Days #8 tab 12/12/21 12/14/21 Rx magnesium oxide 400 mg (241.3 mg 400 mg PO BID #14 tab 05/16/21 05/18/21 Rx magnesium) tablet azithromycin 250 mg tablet 250 mg PO DAILY@1200 05/18/21 05/18/21 History Past Med/Surg History Medical History ASCUS of cervix with negative high risk HPV Bronchiectasis following lung transplantation Cholesteatoma of both middle ears Chronic mastoiditis Chronic obstructive pulmonary disease Chronic respiratory failure with hypoxia and hypercapnia Chronic tympanomastoiditis Encounter for mastoidectomy cavity debridement History of actinic keratosis Hypercholesterolemia LGSIL on Pap smear of cervix Osteoporosis Paroxysmal A-fib Postmenopausal Pulmonary emphysema Pulmonary hypertension Surgical History History of colposcopy History of ear surgery Hx of colonoscopy Hx of tonsillectomy Lung transplant status, bilateral 11/11/2019 [facility] Presby S/P cardiac cath S/P dilation and curettage S/P wisdom tooth extraction Family History Mother Adenocarcinoma of lung Osteoporosis Rheumatoid arthritis Lung cancer Myocardial infarction Aunt Breast cancer maternal aunt Grandfather (Paternal) Colorectal cancer Father Lung cancer Denies family history of Ovarian cancer Social History Smoking Status: Never smoker Tobacco Type: Cigarettes Cigarettes Per Day: 1 ppd for 23 years; Second Hand Exposure: No; Hx Alcohol Use: No Hx Substance Use: No Preferred Language: Kyrgyz Communication Ability: Impaired Machine Inker Required: No Beliefs That Will Affect Care: None marital status: Current Living Situation: Spouse Feels Safe at Home: Yes Safety Concerns: Feels Safe At This Time Assistive Devices: None Review of Systems Constitutional: no fever and no chills Eyes: no problem reported Ear, Nose, Mouth, Throat: no problem reported Respiratory: no cough, no dyspnea and no hemoptysis Cardiovascular: no chest pain Gastrointestinal: no abdominal pain, no nausea and no vomiting Genitourinary: no dysuria Musculoskeletal: no problem reported Integumentary: no problem reported Neurologic: no problem reported Psychiatric: no problem reported Endocrine: no problem reported Hematologic / Lymphatic: no problem reported Allergy / Immunological: no problem reported Physical Exam Constitutional: WD/WN, vitals as above Eyes: PERRL, conjunctivae normal, anicteric sclerae ENMT: external ear and nose normal, oropharynx normal Neck: trachea midline, no thyromegaly Respiratory: normal respiratory effort (+coarse breath sound (possibly somew hat worse than baseline)) Cardiovascular: RRR, no murmur, no edema Chest (Breasts): Chest: normal inspection of chest Gastrointestinal (Abdomen): Inspection/Auscultation: abdomen normal to inspection and normal bowel sounds (soft, nontender) Musculoskeletal: Head/Neck/Chest: normocephalic and head atraumatic Extremities: extremities normal to inspection and strength 5/5 throughout Skin: no rashes, warm and dry Neurologic: PERRL, EOMI, accommodation nl, no face palsy, no dysarthria Psychiatric: A+Ox3, euthymic affect Genitourinary: no CVA tenderness Lymphatic: no lymphedema Results & Data Results & Data ([facility]) Vital Signs (Past 12 Hours) Vital Signs Temp Pulse Pulse Resp BP BP Pulse Ox 05/18/21 17:30 71 25 H 95 05/18/21 17:00 82 95 05/18/21 16:30 80 05/18/21 16:00 82 05/18/21 15:00 71 37 H 96 05/18/21 14:30 72 27 H 96 05/18/21 14:00 73 24 148/88 H 95 05/18/21 13:30 68 32 H 155/82 H 97 05/18/21 13:20 71 20 170/80 H 96 05/18/21 13:17 71 47 H 94 05/18/21 10:50 36.6 C 81 18 119/80 92 Laboratory Results 05/18/21 05/18/21 05/18/21 Range/Units 14:23 11:10 11:10 WBC (4.8-10.8) K/uL RBC (4.2-5.4) M/uL Hgb (12.0-16.0) g/dL Hct (37-47) % MCV (80-100) fL MCH (25-34) pg MCHC (32-36) g/dL RDW Std Deviation (36.4-46.3) fL RDW Coeff of Janina (11.5-14.5) % Plt Count (130-400) K/uL MPV (7.4-10.4) fL Immature Gran % (Auto) % Neut % (Auto) % Lymph % (Auto) % [place] % (Auto) % Eos % (Auto) % Baso % (Auto) % Neut # (Auto) (1.4-6.5) K/uL Lymph # (Auto) (1.2-3.4) K/uL [place] # (Auto) (0.11-0.59) K/uL Eos # (Auto) (0-0.5) K/uL Baso # (Auto) (0-0.2) K/uL Immature Gran # (Auto) (0.00-0.02) K/uL Hypogranular Neuts Dohle Bodies Platelet Estimate (Normal) Sodium 135 L (136-145) mmol/L Potassium 4.5 (3.5-5.1) mmol/L Chloride 103 (98-107) mmol/L Carbon Dioxide 27 (21-32) mmol/L Anion Gap 5.0 (3-11) BUN 45 H (7-18) mg/dl Creatinine 1.24 H (0.6-1.2) mg/dl Est Cr Clr Drug Dosing 40.6 ml/min Est GFR ( Amer) 53.9 ml/min Est GFR (Non-Af Amer) 46.5 ml/min BUN/Creatinine Ratio 36.5 H (10-20) Glucose 125 H (70-99) mg/dl Calcium 10.2 H (8.5-10.1) mg/dl Total Bilirubin 0.4 (0.2-1) mg/dl AST 32 (15-37) U/L ALT 34 (12-78) Alkaline Phosphatase 122 H (45-117) U/L Troponin I 0.024 (0-0.045) ng/ml Total Protein 6.6 (6.4-8.2) gm/dl Albumin 2.7 L (3.4-5.0) gm/dl Globulin 3.9 (2.5-4.0) gm/dl Albumin/Globulin Ratio 0.7 L (0.9-2) Urine Color Yellow Urine Appearance Clear (Clear) Urine pH 8.0 H (4.5-7.5) Ur Specific [place] 1.013 (1.000-1.030) Urine Protein 1+ H (Negative) Urine Glucose (UA) Negative (Negative) Urine Ketones Negative (Negative) Urine Blood Trace H (Negative) Urine Nitrite Negative (Negative) Urine Bilirubin Negative (Negative) Urine Urobilinogen Negative (Negative) Ur Leukocyte Esterase Negative (Negative) Urine WBC (Auto) 1-5 (0-5) /hpf Urine RBC (Auto) 0-4 (0-4) /hpf U Hyaline Cast (Auto) 1-5 (0-5) /lpf U Epithel Cells (Auto) 10-20 H (0-5) /lpf Urine Bacteria (Auto) Negative (Negative) 05/18/21 Range/Units 11:10 WBC 3.92 L (4.8-10.8) K/uL RBC 3.07 L (4.2-5.4) M/uL Hgb 9.1 L (12.0-16.0) g/dL Hct 28.7 L (37-47) % MCV 93.5 (80-100) fL MCH 29.6 (25-34) pg MCHC 31.7 L (32-36) g/dL RDW Std Deviation 63.6 H (36.4-46.3) fL RDW Coeff of Janina 18.6 H (11.5-14.5) % Plt Count 86 L (130-400) K/uL MPV 10.3 (7.4-10.4) fL Immature Gran % (Auto) 0.8 % Neut % (Auto) 83.5 % Lymph % (Auto) 14.3 % [place] % (Auto) 0.3 % Eos % (Auto) 0.3 % Baso % (Auto) 0.8 % Neut # (Auto) 3.28 (1.4-6.5) K/uL Lymph # (Auto) 0.56 L (1.2-3.4) K/uL [place] # (Auto) 0.01 L (0.11-0.59) K/uL Eos # (Auto) 0.01 (0-0.5) K/uL Baso # (Auto) 0.03 (0-0.2) K/uL Immature Gran # (Auto) 0.03 H (0.00-0.02) K/uL Hypogranular Neuts 1+ Dohle Bodies 1+ Platelet Estimate Decreased L (Normal) Sodium (136-145) mmol/L Potassium (3.5-5.1) mmol/L Chloride (98-107) mmol/L Carbon Dioxide (21-32) mmol/L Anion Gap (3-11) BUN (7-18) mg/dl Creatinine (0.6-1.2) mg/dl Est Cr Clr Drug Dosing ml/min Est GFR ( Amer) ml/min Est GFR (Non-Af Amer) ml/min BUN/Creatinine Ratio (10-20) Glucose (70-99) mg/dl Calcium (8.5-10.1) mg/dl Total Bilirubin (0.2-1) mg/dl AST (15-37) U/L ALT (12-78) Alkaline Phosphatase (45-117) U/L Troponin I (0-0.045) ng/ml Total Protein (6.4-8.2) gm/dl Albumin (3.4-5.0) gm/dl Globulin (2.5-4.0) gm/dl Albumin/Globulin Ratio (0.9-2) Urine Color Urine Appearance (Clear) Urine pH (4.5-7.5) Ur Specific [place] (1.000-1.030) Urine Protein (Negative) Urine Glucose (UA) (Negative) Urine Ketones (Negative) Urine Blood (Negative) Urine Nitrite (Negative) Urine Bilirubin (Negative) Urine Urobilinogen (Negative) Ur Leukocyte Esterase (Negative) Urine WBC (Auto) (0-5) /hpf Urine RBC (Auto) (0-4) /hpf U Hyaline Cast (Auto) (0-5) /lpf U Epithel Cells (Auto) (0-5) /lpf Urine Bacteria (Auto) (Negative) Diagnostic Findings Head and neck CTA IMPRESSION: 1. No acute intracranial abnormality. 2. Moderate to severe atherosclerotic plaque of the right carotid bulb results in approximately 60% stenosis of the proximal right ICA. 3. Otherwise unremarkable CTA of the head and neck. CXR IMPRESSION: 1. No change compared to the prior study. 2. Patchy left basilar densities and a small left pleural effusion persists. 3. Stable cardiomegaly and mild chronic interstitial thickening. Code Status & VTE Plan VTE Prophylaxis Plan VTE Prophylaxis will be ordered: Yes (1) Altered mental status Altered mental status type: unspecified Qualified Code(s): R41.82 - Altered mental status, unspecified
[2021-05-18 21:27] LABS: Base Excess ABG 2.4 mEq/L (-9-1.8); HCO3 ABG 27 mmol/L (19-24); Oxygen Saturation ABG 98.3 % (90-95); PCO2 ABG 44 mmHg (35-46); PO2 ABG 113 mmHg (80-95); pH ABG 7.41 (7.35-7.45)
[2021-05-18 21:32] LABS: Allen Test POS (Pos)
[2021-05-19] MEDS ORDERED: SENNA 8.6 MG TAB PO PRN (02:28)
[2021-05-19] MEDS ORDERED: PHARMACIST DISCHARGE MED REC CONSULT PRN (02:28)
[2021-05-19] MEDS ORDERED: ALBUTEROL 0.083% NEBU SOLN 3 ML VIAL INH PRN (02:28)
[2021-05-19] MEDS ORDERED: ONDANSETRON INJ 2 MG/ML 2 ML VIAL IV PRN (02:28)
[2021-05-19] MEDS ORDERED: POLYETHYLENE (MIRALAX) 17 GM PACK PO PRN (02:28)
[2021-05-19] MEDS ORDERED: PROCHLORPERAZINE MALEATE 10 MG TAB PO PRN (02:28)
[2021-05-19] MEDS ORDERED: ACETAMINOPHEN 500 MG TAB PO PRN (02:41)
[2021-05-19] MEDS: cefUROXime axetil 500 MG TAB PO SCH ×2 (02:50→08:50)
[2021-05-19] MEDS: LORazepam 0.5 MG TAB SL SCH ×3 (02:50→21:25)
[2021-05-19] MEDS: MAGNESIUM OXIDE 400 MG TAB PO SCH ×3 (02:50→21:21)
[2021-05-19] MEDS: METOPROLOL TARTRATE 50 MG TAB PO SCH ×3 (02:50→21:21)
[2021-05-19] MEDS: AMITRIPTYLINE HCL 50 MG TAB PO SCH ×2 (03:11→21:21)
[2021-05-19 05:10] LABS: Hematocrit (blood only) 27.9 % (37-47); Hemoglobin 8.6 g/dL (12.0-16.0); Mean Corpuscular Hemoglobin 29.1 pg (25-34); Mean Corpuscular Hgb Conc 30.8 g/dL (32-36); Mean Corpuscular Volume 94.3 fL (80-100); RDW Coefficient of Variation 18.6 % (11.5-14.5); RDW Standard Deviation 65.2 fL (36.4-46.3); Red Blood Count 2.96 M/uL (4.2-5.4); White Blood Count 2.37 K/uL (4.8-10.8)
[2021-05-19 05:11] LABS: Mean Platelet Volume 10.2 fL (7.4-10.4); Platelet Count 85 K/uL (130-400)
[2021-05-19] MEDS: HEPARIN SOD 5,000 UNIT/0.5 ML VIAL SQ SCH ×3 (05:38→21:54)
[2021-05-19 05:51] LABS: BUN Creatinine Ratio 24.4 (10-20); Calcium 10.3 mg/dl (8.5-10.1); Creatinine Clr Calc Pharmacy 33.8 ml/min; Est GFR (African American) 43.2 ml/min; Est GFR (Non-African American) 37.3 ml/min; Potassium 4.3 mmol/L (3.5-5.1)
[2021-05-19 07:22] LABS: Estimated Average Glucose 140 mg/dl; Hemoglobin A1C 6.5 % (4.5-5.6)
[2021-05-19] MEDS: FLUTICASONE/VILANTEROL 200/25MCG 14 PUFFS/INHALER INH SCH (08:49)
[2021-05-19] MEDS: guaiFENesin 600 MG TABCR PO SCH ×2 (08:50→21:21)
[2021-05-19] MEDS ORDERED: TACROLIMUS 0.5 MG CAP PO SCH (09:00)
[2021-05-19] MEDS: HYDROCORTISONE 10 MG TAB PO SCH ×2 (10:04→21:24)
--- NOTE | 2021-05-19 11:46 | Neurology Consultation ---
Date of Consultation May 19, 2021 Assessment & Plan (1) Altered mental status: 1. MRI no acute findings 2. CTA head neck unremarkable 3. likely a hypoxic event (2) Lung transplant status, bilateral: Supervising Physician Co-Signing Physician Notes Patient was seen and examine in the ER. She was sleeping comfortably when I arrived. She aroused to voice. She is hard o hearing. Speech is soft and bradyphenic. following commands and comprehension intact. Denies pain or complaint at this time. Hand movement /strength as well as finger to nose seem normal. Currently without complaint. She appears at baseline. MRI brain discussed with patient. No evidence of stroke. No additional neuroloy work up at this time. PLease call with any further questions or concerns. History of Present Illness Reason for Consultation: Altered Mental Status Requesting Physician: Garrett Steiner MD Attending Physician: Garrett Steiner MD History of Present Illness Esther is a 60 year old female with PMH- bilateral lung transplant in 2019 at [facility] with complicated course including difficulty weaning off the ventilator requiring tracheostomy, recurrent pneumonia and airway stenosis with stent in right bronchus intermedius, h/o pulmonary hypertension no longer on medications, pAfib, CKD III, chronic nausea and vomiting with G-J tube in place with tube feedings, anemia who presents to [facility] ED 05/18/2021 with confusion. She was recently admitted at [facility] and discharged on Monday05/16/2021. She was diagnosed with influenza and treated with Tamiflu. She was on cefepime for 10 days for hx of Pseudomonas pna. She was discharged on 4 days course of cefuroxime. She presented on last admission with [facility] and therefore her tacrolimus dose was decreased to 3 mg BID. Her home dose 4.5 mg BID was resumed on discharge as her Cr was 1.5 which seems back to baseline. She was supposed to hold Bactrim until restarted by her transplant team. She was well on Monday when she was discharged but then felt tired on Monday morning and did not take any of her medications. She did go get her blood work done (on Mondays she gets blood work for her transplant team) and afterword felt asleep. Her called her from work and reminded her to take medication she took her cefuroxime. She then reports feeling confused and not knowing how to operate her cell phone. She feels that this lasted throughout the evening and that she did not sleep much that night. the next morning she was back to her baseline and took all of her meds. She called her transplant team as she was supposed to go there tomorrow for bronchoscopy. She had words finding difficulty and so bronchoscopy was cancelled. Pt was advised to present to the hospital for further evaluation. Allergies Allergy/AdvReac Type Severity Reaction Status Date / Time glimepiride AdvReac Severe Fainting Verified 05/18/21 15:22 Home Medications Medication Instructions Recorded Confirmed Type pantoprazole 40 mg tablet,delayed 40 mg PO DAILY@1200 01/24/20 05/18/21 History release (Protonix) valganciclovir 450 mg tablet 450 mg PO DAILY@1200 01/24/20 05/18/21 History (Valcyte) hydrocortisone 20 mg tablet See Rx Instructions .ROUTE .COMPLEX 09/08/20 05/18/21 History (Cortef) prochlorperazine maleate 10 mg 10 mg PO BID PRN 09/08/20 05/18/21 History tablet (Compazine) sulfamethoxazole 400 1 tab PO 2XWK 09/08/20 05/18/21 History mg-trimethoprim 80 mg tablet (Bactrim) Domperidone 20 mg PO QID 10/21/20 05/18/21 History amitriptyline 50 mg tablet 50 mg PO HS 02/09/21 05/18/21 History tacrolimus 1 mg capsule, 4.5 mg PO BID 02/09/21 05/18/21 History immediate-release acetaminophen 500 mg tablet 1,000 mg PO HS PRN 05/07/21 05/18/21 History albuterol sulfate 2.5 mg INHALATION Q4H PRN 05/07/21 05/18/21 History citalopram 10 mg tablet 10 mg PO DAILY@1200 05/07/21 05/18/21 History everolimus (immunosuppressive) 0.5 2 mg PO BID 05/07/21 05/18/21 History mg tablet fluticasone furoate 200 1 ea INHALATION QAM 05/07/21 05/18/21 History mcg-vilanterol 25 mcg/dose inhalation powder (Breo Ellipta) lorazepam 0.5 mg tablet 0.5 mg SUBLINGUAL BID 05/07/21 05/18/21 History metoprolol tartrate 50 mg tablet 50 mg PO BID 05/07/21 05/18/21 History sennosides 8.6 mg tablet (senna) 8.6 mg PO HS PRN 05/07/21 05/18/21 History cefuroxime axetil 500 mg tablet 500 mg PO BID 4 Days #8 tab 05/16/21 05/18/21 Rx magnesium oxide 400 mg (241.3 mg 400 mg PO BID #14 tab 05/16/21 05/18/21 Rx magnesium) tablet azithromycin 250 mg tablet 250 mg PO DAILY@1200 05/18/21 05/18/21 History Patient History Medical History ASCUS of cervix with negative high risk HPV Bronchiectasis following lung transplantation Cholesteatoma of both middle ears Chronic mastoiditis Chronic obstructive pulmonary disease Chronic respiratory failure with hypoxia and hypercapnia Chronic tympanomastoiditis Encounter for mastoidectomy cavity debridement History of actinic keratosis Hypercholesterolemia LGSIL on Pap smear of cervix Osteoporosis Paroxysmal A-fib Postmenopausal Pulmonary emphysema Pulmonary hypertension Surgical History History of colposcopy History of ear surgery Hx of colonoscopy Hx of tonsillectomy Lung transplant status, bilateral 11/11/2019 [facility] [place] S/P cardiac cath S/P dilation and curettage S/P wisdom tooth extraction Family History Mother Adenocarcinoma of lung Osteoporosis Rheumatoid arthritis Lung cancer Myocardial infarction Aunt Breast cancer maternal aunt Grandfather (Paternal) Colorectal cancer Father Lung cancer Denies family history of Ovarian cancer Social History Smoking Status: Never smoker Tobacco Type: Cigarettes Cigarettes Per Day: 1 ppd for 23 years; Second Hand Exposure: No; Hx Alcohol Use: No Hx Substance Use: No Preferred Language: Nauruan Communication Ability: Impaired Manager Change Required: No Beliefs That Will Affect Care: None marital status: Current Living Situation: Spouse Feels Safe at Home: Yes Safety Concerns: Feels Safe At This Time Assistive Devices: Oxygen - Continuous and Walker Physical Exam Constitutional: EXAM: Constitutional: appearance normally developed Face: normocephalic and atraumatic Eyes: normal lids, normal conjunctiva Neck: supple Respiratory: normal effort Cardiovascular: normal pulses Abdomen: non distended Skin: no rashes, lesions, or ulcers noted Psychiatric: normal mood and normal affect NEUROLOGIC EXAMINATION: Appearance: no acute distress Orientation: lethargic and oriented x 3 Mental Status: alert Attention: decreased Knowledge: appropriate Language: no aphasia Speech:soft speech, bradyphrenic Cranial Nerves: CN 2 - no visual defect on confrontation and pupils round, equal, reactive to light CN 3, 4, 6 - extra-ocular movements intact CN 5 - facial sensation intact CN 7 - no facial asymmetry CN 8 -grossly hard of hearing CN 9, 10 - palate symmetric CN 11 - good shoulder shrug CN 12 - tongue midline Gait: deferred Coordination: no ataxia with finger to nose testing Sensory: intact and symmetric to light touch Muscle Tone: normal Muscle exam: No focal weakness Results & Data ([facility]) Vital Signs (Past 12 Hours) Vital Signs Temp Pulse Pulse Resp BP BP Pulse Ox 05/19/21 11:35 36.8 C 78 20 160/88 H 100 05/19/21 08:00 37.1 C 68 18 143/72 H 100 05/19/21 06:00 72 21 152/86 H 95 05/19/21 04:00 75 21 165/83 H 98 Laboratory Results Abnormal lab results 05/18/21 05/18/21 05/18/21 Range/Units 11:10 14:23 21:14 WBC (4.8-10.8) K/uL RBC (4.2-5.4) M/uL Hgb (12.0-16.0) g/dL Hct (37-47) % MCHC (32-36) g/dL RDW Std Deviation (36.4-46.3) fL RDW Coeff of Janina (11.5-14.5) % Plt Count (130-400) K/uL Lymph # (Auto) 0.56 L (1.2-3.4) K/uL [place] # (Auto) 0.01 L (0.11-0.59) K/uL Immature Gran # (Auto) 0.03 H (0.00-0.02) K/uL Platelet Estimate Decreased L (Normal) ABG pO2 113 H (80-95) mmHg ABG HCO3 27 H (19-24) mmol/L ABG O2 Saturation 98.3 H (90-95) % ABG Base Excess 2.4 H (-9-1.8) mEq/L Sodium (136-145) mmol/L BUN (7-18) mg/dl Creatinine (0.6-1.2) mg/dl BUN/Creatinine Ratio (10-20) Glucose (70-99) mg/dl Hemoglobin A1c (4.5-5.6) % Calcium (8.5-10.1) mg/dl Triglycerides (0-150) mg/dl Cholesterol (0-200) mg/dl Urine pH 8.0 H (4.5-7.5) Urine Protein 1+ H (Negative) Urine Blood Trace H (Negative) U Epithel Cells (Auto) 10-20 H (0-5) /lpf 05/19/21 05/19/21 05/19/21 Range/Units 04:54 04:54 04:54 WBC 2.37 L (4.8-10.8) K/uL RBC 2.96 L (4.2-5.4) M/uL Hgb 8.6 L (12.0-16.0) g/dL Hct 27.9 L (37-47) % MCHC 30.8 L (32-36) g/dL RDW Std Deviation 65.2 H (36.4-46.3) fL RDW Coeff of Janina 18.6 H (11.5-14.5) % Plt Count 85 L (130-400) K/uL Lymph # (Auto) (1.2-3.4) K/uL [place] # (Auto) (0.11-0.59) K/uL Immature Gran # (Auto) (0.00-0.02) K/uL Platelet Estimate (Normal) ABG pO2 (80-95) mmHg ABG HCO3 (19-24) mmol/L ABG O2 Saturation (90-95) % ABG Base Excess (-9-1.8) mEq/L Sodium 134 L (136-145) mmol/L BUN 36 H (7-18) mg/dl Creatinine 1.49 H (0.6-1.2) mg/dl BUN/Creatinine Ratio 24.4 H (10-20) Glucose 103 H (70-99) mg/dl Hemoglobin A1c 6.5 H (4.5-5.6) % Calcium 10.3 H (8.5-10.1) mg/dl Triglycerides 183 H (0-150) mg/dl Cholesterol 263 H (0-200) mg/dl Urine pH (4.5-7.5) Urine Protein (Negative) Urine Blood (Negative) U Epithel Cells (Auto) (0-5) /lpf Diagnostic Findings CXR-. No change compared to the prior study. . Patchy left basilar densities and a small left pleural effusion persists. . Stable cardiomegaly and mild chronic interstitial thickening. CTA head and neck-. No acute intracranial abnormality. Moderate to severe atherosclerotic plaque of the right carotid bulb results in approximately 60% stenosis of the proximal right ICA. Otherwise unremarkable CTA of the head and neck. MRI brain-No acute intracranial abnormality. Paranasal sinus disease as above. (1) Altered mental status Altered mental status type: unspecified Qualified Code(s): R41.82 - Altered mental status, unspecified
[2021-05-19] MEDS ORDERED: NOVASOURCE RENAL 2.0 CAL 1000ML BAG JT SCH (12:15)
[2021-05-19] MEDS ORDERED: GADOBUTROL 65ML VIAL IV ONE (12:19)
--- NOTE | 2021-05-19 12:47 | Magnetic Resonance Report ---
MRI OF THE BRAIN COMBO CLINICAL HISTORY: Change in mental status. COMPARISON STUDY: CT of the brain dated 05/18/2021. TECHNIQUE: MRI of the brain was performed utilizing various T1 and T2-weighted sequences in the axial , sagittal, and coronal planes. Contrast-enhanced sequences were acquired following the administratio n of 5.6 cc of Gadavist. FINDINGS: Brain parenchyma: There is age-related involutional change noting [id number] subcortical and pe riventricular microangiopathic disease. There is no hemorrhage or mass effect. There is no restricted diffusion to suggest acute ischemia. No enhancing mass lesion is identified on the postcontrast imag es. Kan-white matter differentiation is preserved. No extra-axial fluid collection is seen. The cere bellar tonsils are normal in configuration. Ventricles, sulci, and cisterns: Normal in configuration. Pituitary and sella: Unremarkable. Intracranial vasculature: Normal flow voids are maintained at the skull base. Orbits: The bony orbits are grossly intact. Orbital contents are normal in appearance. Sinuses and mastoids: There is mild/moderate mucosal thickening within the maxillary antra. Moderate mucosal thickening is noted in the frontal and ethmoid sinuses, and there is trace mucosal thickening in the sphenoid sinuses. Fluid is noted within the sphenoid and maxillary sinuses. There is evidence of previous right mastoid surgery, with trace bilateral mastoid effusions.. Calvarium: Unremarkable. Cervical cord: Partially visualized cervical spinal cord is normal in morphology and signal intensity . IMPRESSION: 1. No acute intracranial abnormality. 2. Paranasal sinus disease as above. ACT 112: Negative or not required by law. Electronically signed by: Pieter Briggs M.D. 05/19/2021 12:45 PM
[2021-05-19] MEDS: CITALOPRAM 20 MG TAB PO SCH (12:59)
[2021-05-19] MEDS: VALGANCICLOVIR HCL 450 MG TABLET PO SCH (13:00)
[2021-05-19] MEDS: PANTOprazole 40 MG TAB PO SCH (13:00)
[2021-05-19] MEDS: AZITHROMYCIN 250 MG TAB PO SCH (13:00)
[2021-05-19] MEDS: TUBE FEEDING WATER FLUSH JT SCH ×3 (13:30→22:00)
--- NOTE | 2021-05-19 16:33 | Electrocardiogram Report ---
Test Reason : Blood Pressure : / mmHG Vent. Rate : 081 BPM Atrial Rate : 081 BPM P-R Int : 132 ms QRS Dur : 074 ms QT Int : 378 ms P-R-T Axes : 056 050 086 degrees QTc Int : 439 ms Normal sinus rhythm Possible Left atrial enlargement Nonspecific ST and T wave abnormality Abnormal ECG When compared with ECG of 07-MAY-2021 09:52, No significant change was found Confirmed by Edis Sanchez ([id number]) on 05/19/2021 4:32:29 PM Referred By: Confirmed By:Edis Sanchez
--- NOTE | 2021-05-19 16:52 | Hospitalist Progress Note ---
Date of Service May 19, 2021 Assessment & Plan (1) Altered mental status: (2) Lung transplant status, bilateral: Plan: Acute Metabolic Encephalopathy Likely secondary to Nocturnal Hypoxia -MRI Brain:No acute intracranial abnormality. -Head and Neck CTA: No acute intracranial abnormality. Moderate to severe atherosclerotic plaque of the right carotid bulb results in approximately 60% stenosis of the proximal right ICA. Otherwise unremarkable CTA of the head and neck. -Tacrolimus level 6.5 -Recently completed 10-day course of antibiotics -Nocturnal Oximetry: Qualifies for supplemental oxygen Mental status improved Plan to repeat 2 step prior to discharge Appreciate Neurology Input Admitting physician contacted transplant team at [facility] - agree w/ nocturnal hypoxia study Patient is planned for bronchoscopy done hopefully later this week at [facility] H/O lung transplant, severe COPD Immunocompromise state Continue home meds Follows with [facility] CKD III Baseline Cr: 1.4-1.9 Monitor renal function H/O Pulmonary hypertension H/O chronic intermittent nausea and vomiting/suspected delayed gastric emptying Has G-J-tube in place. History of it being repositioned 02/2021 Continue tube feeds Pancytopenia-Chronic Multifactorial Monitor DVT PX: Heparin SQ CODE STATUS Full Code Disposition PT/OT prior to discharge Admission and Anticipated Discharge Date Admission Date: May 19, 2021 Subjective Patient is seen and examined at bedside Mental status improved States having minimal intermittent cough States feeling tired Nocturnal oximetry reviewed Review of Systems Review of Systems: All systems reviewed & are unremarkable except as noted in Subjective Physical Exam Physical Exam: Physical Exam: Vitals signs as noted above General Appearance: Thin, chronically ill appearing Head: normocephalic, Atraumatic Eyes: normal inspection, EOMI Neck: supple, Trachea midline Respiratory/Chest: Coarse breath sounds Cardiovascular: S1, S2, No murmur Abdomen/GI:Soft, Non tender, + PEG tube, Bowel sounds present Extremities/Musculoskeletal:normal inspection, no edema Neurologic/Psych:AAOX3, grossly no focal neurological deficits Skin: normal color, warm Results & Data Results & Data ([facility]) Vital Signs (Past 12 Hours) Vital Signs Temp Pulse Pulse Resp BP BP Pulse Ox 05/19/21 14:35 05/19/21 11:35 36.8 C 78 20 160/88 H 100 05/19/21 08:00 37.1 C 68 18 143/72 H 100 05/19/21 06:00 72 21 152/86 H 95 Pulse Ox Pulse Ox Pulse Ox 05/19/21 14:35 95 100 79 L 05/19/21 11:35 05/19/21 08:00 05/19/21 06:00 Laboratory Results Short CBC 05/19/21 Range/Units 04:54 WBC 2.37 L (4.8-10.8) K/uL Hgb 8.6 L (12.0-16.0) g/dL Hct 27.9 L (37-47) % Plt Count 85 L (130-400) K/uL BMP 05/19/21 04:54 Sodium 134 L Potassium 4.3 Chloride 101 Carbon Dioxide 29 BUN 36 H Creatinine 1.49 H Glucose 103 H Calcium 10.3 H (1) Altered mental status Altered mental status type: unspecified Qualified Code(s): R41.82 - Altered mental status, unspecified
[2021-05-19] MEDS: NOVASOURCE RENAL 2.0 CAL 1000ML BAG JT SCH (20:30)
[2021-05-19] MEDS: TACROLIMUS 1 MG CAP PO SCH (21:22)
[2021-05-19] MEDS: TACROLIMUS 0.5 MG CAP PO SCH (21:22)
[2021-05-19] MEDS: EVEROLIMUS 0.5 MG PO SCH (21:24)
[2021-05-20] MEDS: TUBE FEEDING WATER FLUSH JT SCH ×6 (03:22→21:30)
[2021-05-20] MEDS: HEPARIN SOD 5,000 UNIT/0.5 ML VIAL SQ SCH ×3 (06:20→21:13)
[2021-05-20 07:04] LABS: Hematocrit (blood only) 29.7 % (37-47); Hemoglobin 9.1 g/dL (12.0-16.0); Mean Corpuscular Hemoglobin 29.4 pg (25-34); Mean Corpuscular Hgb Conc 30.6 g/dL (32-36); Mean Corpuscular Volume 95.8 fL (80-100); RDW Coefficient of Variation 18.4 % (11.5-14.5); RDW Standard Deviation 64.6 fL (36.4-46.3); White Blood Count 2.56 K/uL (4.8-10.8)
[2021-05-20 07:14] LABS: Mean Platelet Volume 10.4 fL (7.4-10.4); Platelet Count 99 K/uL (130-400)
[2021-05-20 07:33] LABS: Basophils # (auto) 0.01 K/uL (0-0.2); Basophils % (auto) 0.4 %; Eosinophils # (auto) 0.01 K/uL (0-0.5); Eosinophils % (auto) 0.4 %; Hypogranular Neutrophils 1+; Immature Granulocytes # (auto) 0.03 K/uL (0.00-0.02); Immature Granulocytes % (auto) 1.2 %; Lymphocytes # (auto) 0.27 K/uL (1.2-3.4); Lymphocytes % (auto) 10.5 %; Monocytes # (auto) 0.27 K/uL (0.11-0.59); Monocytes % (auto) 10.5 %; Neutrophils # (auto) 1.97 K/uL (1.4-6.5)
[2021-05-20 07:42] LABS: BUN Creatinine Ratio 30.7 (10-20); Calcium 9.7 mg/dl (8.5-10.1); Creatinine Clr Calc Pharmacy 27.1 ml/min; Est GFR (Non-African American) 28.5 ml/min; Potassium 4.6 mmol/L (3.5-5.1)
[2021-05-20] MEDS: METOPROLOL TARTRATE 50 MG TAB PO SCH ×2 (09:24→20:52)
[2021-05-20] MEDS: guaiFENesin 600 MG TABCR PO SCH ×2 (09:30→20:50)
[2021-05-20] MEDS: LORazepam 0.5 MG TAB SL SCH ×2 (09:30→20:57)
[2021-05-20] MEDS: MAGNESIUM OXIDE 400 MG TAB PO SCH ×2 (09:31→20:50)
[2021-05-20] MEDS: TACROLIMUS 1 MG CAP PO SCH ×2 (09:32→20:51)
[2021-05-20] MEDS: TACROLIMUS 0.5 MG CAP PO SCH ×2 (09:32→21:08)
[2021-05-20] MEDS ORDERED: SODIUM CHLORIDE 0.9% 1000ML 1,000 ML IV ONE (09:41)
[2021-05-20] MEDS: FLUTICASONE/VILANTEROL 200/25MCG 14 PUFFS/INHALER INH SCH (10:09)
[2021-05-20] MEDS: EVEROLIMUS 0.5 MG PO SCH ×2 (10:09→20:53)
[2021-05-20] MEDS: HYDROCORTISONE 10 MG TAB PO SCH ×2 (10:22→20:50)
[2021-05-20] MEDS ORDERED: SULFA/TRIMETH 400/80MG TAB PO SCH (12:00)
[2021-05-20] MEDS: VALGANCICLOVIR HCL 450 MG TABLET PO SCH (12:44)
[2021-05-20] MEDS: PANTOprazole 40 MG TAB PO SCH (12:45)
[2021-05-20] MEDS: CITALOPRAM 20 MG TAB PO SCH (12:49)
[2021-05-20] MEDS: AZITHROMYCIN 250 MG TAB PO SCH (12:49)
--- NOTE | 2021-05-20 19:06 | Hospitalist Progress Note ---
Date of Service May 20, 2021 Assessment & Plan (1) Altered mental status: (2) Lung transplant status, bilateral: Plan: Acute Metabolic Encephalopathy Likely secondary to Nocturnal Hypoxia -MRI Brain:No acute intracranial abnormality. -Head and Neck CTA: No acute intracranial abnormality. Moderate to severe atherosclerotic plaque of the right carotid bulb results in approximately 60% stenosis of the proximal right ICA. Otherwise unremarkable CTA of the head and neck. -Tacrolimus level 6.5 -Recently completed 10-day course of antibiotics -Nocturnal Oximetry: Qualifies for supplemental oxygen Mental status improved Appreciate Neurology Input Admitting physician contacted transplant team at [facility] - agree w/ nocturnal hypoxia study Patient is planned for bronchoscopy at [facility] but canceled due to hospitalization Continue Supplemental oxygen at bedtime Plan for 2 step tomorrow H/O lung transplant, severe COPD Immunocompromise state Continue home meds Follows with [facility] CKD III Baseline Cr: 1.4-1.9 Monitor renal function Cr 1.86 today H/O Pulmonary hypertension H/O chronic intermittent nausea and vomiting/suspected delayed gastric emptying Has G-J-tube in place. History of it being repositioned 02/2021 Continue tube feeds Pancytopenia-Chronic Multifactorial Monitor DVT PX: Heparin SQ CODE STATUS Full Code Disposition Likely plan to discharge home tomorrow Admission and Anticipated Discharge Date Admission Date: May 19, 2021 Subjective Patient is seen and examined at bedside States feeling well today No new complaints Denies chest pain, dyspnea, dizziness, nausea, abd pain Review of Systems Review of Systems: All systems reviewed & are unremarkable except as noted in Subjective Physical Exam Physical Exam: Physical Exam: Vitals signs as noted above General Appearance: Thin, chronically ill appearing Head: normocephalic, Atraumatic Eyes: normal inspection, EOMI Neck: supple, Trachea midline Respiratory/Chest: Coarse breath sounds Cardiovascular: S1, S2, No murmur Abdomen/GI:Soft, Non tender, + PEG tube, Bowel sounds present Extremities/Musculoskeletal:normal inspection, no edema Neurologic/Psych:AAOX3, grossly no focal neurological deficits Skin: normal color, warm Results & Data Results & Data ([facility]) Vital Signs (Past 12 Hours) Vital Signs Temp Pulse Resp BP Pulse Ox 05/20/21 14:59 36.8 C 80 18 122/76 100 05/20/21 09:22 72 97/61 L 05/20/21 07:18 36.5 C 93 H 18 102/64 100 Laboratory Results Short CBC 05/20/21 Range/Units 06:39 WBC 2.56 L (4.8-10.8) K/uL Hgb 9.1 L (12.0-16.0) g/dL Hct 29.7 L (37-47) % Plt Count 99 L (130-400) K/uL BMP 05/20/21 06:39 Sodium 134 L Potassium 4.6 Chloride 99 Carbon Dioxide 30 BUN 57 H D Creatinine 1.86 H D Glucose 144 H Calcium 9.7 (1) Altered mental status Altered mental status type: unspecified Qualified Code(s): R41.82 - Altered mental status, unspecified
[2021-05-20] MEDS: NOVASOURCE RENAL 2.0 CAL 1000ML BAG JT SCH (20:38)
[2021-05-20] MEDS: AMITRIPTYLINE HCL 50 MG TAB PO SCH (20:50)
[2021-05-21] MEDS: TUBE FEEDING WATER FLUSH JT SCH ×3 (02:13→08:25)
[2021-05-21] MEDS: HEPARIN SOD 5,000 UNIT/0.5 ML VIAL SQ SCH (06:24)
[2021-05-21 07:41] LABS: Eosinophils # (auto) 0.02 K/uL (0-0.5); Eosinophils % (auto) 0.8 %; Hematocrit (blood only) 27.9 % (37-47); Hemoglobin 8.5 g/dL (12.0-16.0); Immature Granulocytes # (auto) 0.04 K/uL (0.00-0.02); Immature Granulocytes % (auto) 1.6 %; Lymphocytes # (auto) 0.37 K/uL (1.2-3.4); Lymphocytes % (auto) 14.7 %; Mean Corpuscular Hemoglobin 29.4 pg (25-34); Mean Corpuscular Hgb Conc 30.5 g/dL (32-36); Mean Corpuscular Volume 96.5 fL (80-100); Mean Platelet Volume 11.5 fL (7.4-10.4); Monocytes # (auto) 0.19 K/uL (0.11-0.59); Monocytes % (auto) 7.5 %; Neutrophils % (auto) 75.4 %; Platelet Count 114 K/uL (130-400); RDW Standard Deviation 63.9 fL (36.4-46.3); Red Blood Count 2.89 M/uL (4.2-5.4); White Blood Count 2.52 K/uL (4.8-10.8)
[2021-05-21 08:02] LABS: BUN Creatinine Ratio 40.3 (10-20); Calcium 9.3 mg/dl (8.5-10.1); Creatinine Clr Calc Pharmacy 24.5 ml/min; Est GFR (African American) 29.2 ml/min; Est GFR (Non-African American) 25.2 ml/min; Potassium 4.7 mmol/L (3.5-5.1)
[2021-05-21] MEDS: EVEROLIMUS 0.5 MG PO SCH (08:23)
[2021-05-21] MEDS: FLUTICASONE/VILANTEROL 200/25MCG 14 PUFFS/INHALER INH SCH (08:24)
[2021-05-21] MEDS: guaiFENesin 600 MG TABCR PO SCH (08:24)
[2021-05-21] MEDS: HYDROCORTISONE 10 MG TAB PO SCH (08:26)
[2021-05-21] MEDS: MAGNESIUM OXIDE 400 MG TAB PO SCH (08:27)
[2021-05-21] MEDS: METOPROLOL TARTRATE 50 MG TAB PO SCH (08:27)
[2021-05-21] MEDS: TACROLIMUS 1 MG CAP PO SCH (08:28)
[2021-05-21] MEDS: TACROLIMUS 0.5 MG CAP PO SCH (08:29)
[2021-05-21] MEDS: LORazepam 0.5 MG TAB SL SCH (08:33)
[2021-05-21] MEDS: VALGANCICLOVIR HCL 450 MG TABLET PO SCH (12:02)
[2021-05-21] MEDS: AZITHROMYCIN 250 MG TAB PO SCH (12:02)
[2021-05-21] MEDS: PANTOprazole 40 MG TAB PO SCH (12:02)
[2021-05-21] MEDS: CITALOPRAM 20 MG TAB PO SCH (12:02)
--- NOTE | 2021-05-21 13:11 | Hospitalist Progress Note ---
Date of Service May 21, 2021 Assessment & Plan (1) Altered mental status: (2) Lung transplant status, bilateral: Plan: Acute Metabolic Encephalopathy Likely secondary to Nocturnal Hypoxia -MRI Brain:No acute intracranial abnormality. -Head and Neck CTA: No acute intracranial abnormality. Moderate to severe atherosclerotic plaque of the right carotid bulb results in approximately 60% stenosis of the proximal right ICA. Otherwise unremarkable CTA of the head and neck. -Tacrolimus level 6.5 -Recently completed 10-day course of antibiotics -Nocturnal Oximetry: Qualifies for supplemental oxygen-2L at bedtime Mental status improved Appreciate Neurology Input Admitting physician contacted transplant team at [facility] - agree w/ nocturnal hypoxia study Patient is planned for bronchoscopy at [facility] but canceled due to hospitalization Continue Supplemental oxygen at bedtime 2 step: Needs 2 L with activity Advised to follow up with [facility] upon discharge H/O lung transplant, severe COPD Immunocompromise state Continue home meds Follows with [facility] CKD III Baseline Cr: 1.4-1.9 Monitor renal function Cr near baseline H/O Pulmonary hypertension H/O chronic intermittent nausea and vomiting/suspected delayed gastric emptying Has G-J-tube in place. History of it being repositioned 02/2021 Continue tube feeds Pancytopenia-Chronic Multifactorial Monitor DVT PX: Heparin SQ CODE STATUS Full Code Disposition Home with Home Health Admission and Anticipated Discharge Date Admission Date: May 19, 2021 Subjective Patient is seen and examined at bedside Doing well today Had 2 step earlier today Denies chest pain, dyspnea, dizziness, nausea, abd pain Eager to get discharged Updated patient's family over the phone Review of Systems Review of Systems: All systems reviewed & are unremarkable except as noted in Subjective Physical Exam Physical Exam: Physical Exam: Vitals signs as noted above General Appearance: Thin, chronically ill appearing Head: normocephalic, Atraumatic Eyes: normal inspection, EOMI Neck: supple, Trachea midline Respiratory/Chest: Coarse breath sounds Cardiovascular: S1, S2, No murmur Abdomen/GI:Soft, Non tender, + PEG tube, Bowel sounds present Extremities/Musculoskeletal:normal inspection, no edema Neurologic/Psych:AAOX3, grossly no focal neurological deficits Skin: normal color, warm Results & Data Results & Data ([facility]) Vital Signs (Past 12 Hours) Vital Signs Temp Pulse Pulse Pulse Pulse Pulse Resp 05/21/21 08:56 87 96 H 83 86 05/21/21 07:19 37 C 92 H 18 Resp Resp Resp Resp BP Pulse Ox Pulse Ox 05/21/21 08:56 24 24 22 18 96 05/21/21 07:19 112/70 100 Pulse Ox Pulse Ox Pulse Ox 05/21/21 08:56 86 L 92 95 05/21/21 07:19 Laboratory Results Short CBC 05/21/21 Range/Units 07:06 WBC 2.52 L (4.8-10.8) K/uL Hgb 8.5 L (12.0-16.0) g/dL Hct 27.9 L (37-47) % Plt Count 114 L (130-400) K/uL BMP 05/21/21 07:06 Sodium 135 L Potassium 4.7 Chloride 103 Carbon Dioxide 27 BUN 83 H Creatinine 2.06 H Glucose 144 H Calcium 9.3 (1) Altered mental status Altered mental status type: unspecified Qualified Code(s): R41.82 - Altered mental status, unspecified
--- NOTE | 2021-05-21 13:36 | Discharge Summary ---
Date of Service May 21, 2021 Admission HPI Per Admitting Provider Patient is a 60-year-old female with hx of bilateral lung transplant in 2019 at [facility] with complicated course including difficulty weaning off the ventilator requiring tracheostomy, recurrent pneumonia and airway stenosis with stent in right bronchus intermedius, h/o pulmonary hypertension no longer on medications, paroxysmal atrial fibrillation, CKD III, history chronic nausea and vomiting with G-J tube in place with tube feedings, anemia who presents with confusion. Pt was recently admitted at [facility] and discharged on Monday05/16/2021. At that time she was diagnosed with influenza and treated with Tamiflu. In addition, she was on cefepime for 10 days for hx of Pseudomonas pna. Sputum cultx was obtained prior to her discharge and was negative (however sample is questionable). She was discharged on 4 days course of cefuroxime. During her last admission she presented with ROYER and therefore her tacrolimus dose was decreased to 3 mg BID. Her home dose 4.5 mg BID was resumed on discharge as her Cr was 1.5 which seems back to baseline. She was supposed to hold Bactrim until restarted by her outpt providers/ transplant team. Pt reports feeling well on Monday when she was discharged but then felt tired on Monday morning and did not take any of her medications. She did go get her blood work done (on Mondays she gets blood work for her transplant team) and afterword felt asleep. She reports that in the afternoon when her called her from work and reminded her to take medication she took her cefuroxime. She then reports feeling confused and not knowing how to operate her cell phone. She feel s that this lasted throughout the evening and that she did not sleep much last night. In the morning however she felt ok and took all of her medications. She called her transplant team as she was supposed to go there tomorrow for bronchoscopy. On the phone, pt had words finding difficulty and so bronchoscopy was cancelled. Pt was advised to present to the hospital for further evaluation. In the ED pt is alert and oriented, and answering questions appropriately. Sometimes she answers slowly but she also has some difficulty hearing. She is usually quick to answer when she hears/ when I speak louder. This is unchanged from previous - when she was hospitalized here. She has no weakness in her extremities, no sensory loss, no difficulty swallowing, no change in vision. Of note, pt was on 2L of O2 while in the hospital. She reports using O2 from her neighbor. 2 step study was obtained but pt actually did not qualify for oxygen. In the ED, CTA head and neck were obtained, which showed Moderate to severe atherosclerotic plaque of the right carotid bulb resulting in approximately 60% stenosis of the proximal right ICA. Otherwise unremarkable CTA of the head and neck. Cr 1.24 and electrolytes wnl. Pt satting in higher 90s on room air. Admission Exam Per Admitting Provider Physical Exam Constitutional: WD/WN, vitals as above Eyes: PERRL, conjunctivae normal, anicteric sclerae ENMT: external ear and nose normal, oropharynx normal Neck: trachea midline, no thyromegaly Respiratory: normal respiratory effort (+coarse breath sound (possibly somewhat worse than baseline)) Cardiovascular: RRR, no murmur, no edema Chest (Breasts): Chest: normal inspection of chest Gastrointestinal (Abdomen): Inspection/Auscultation: abdomen normal to inspection and normal bowel sounds (soft, nontender) Musculoskeletal: Head/Neck/Chest: normocephalic and head atraumatic Extremities: extremities normal to inspection and strength 5/5 throughout Skin: no rashes, warm and dry Neurologic: PERRL, EOMI, accommodation nl, no face palsy, no dysarthria Psychiatric: A+Ox3, euthymic affect Genitourinary: no CVA tenderness Lymphatic: no lymphedema Principal Diagnosis Acute Metabolic Encephalopathy Nocturnal Hypoxia Discharge Data Allergies Allergy/AdvReac Type Severity Reaction Status Date / Time glimepiride AdvReac Severe Fainting Verified 05/18/21 15:22 Consultations 05/18/21 16:54 ED Decision to Admit Stat 05/19/21 10:06 Consult Neurology Routine Ordered Studies 05/18/21 14:06 CT angio head wo/w Stat CT angio neck with con Stat 05/19/21 10:10 MR brain wo/w con Urgent Hospital Course (1) Altered mental status: (2) Lung transplant status, bilateral: Acute Metabolic Encephalopathy Likely secondary to Nocturnal Hypoxia -MRI Brain:No acute intracranial abnormality. -Head and Neck CTA: No acute intracranial abnormality. Moderate to severe atherosclerotic plaque of the right carotid bulb results in approximately 60% stenosis of the proximal right ICA. Otherwise unremarkable CTA of the head and neck. -Tacrolimus level 6.5 -Recently completed 10-day course of antibiotics -Nocturnal Oximetry: Qualifies for supplemental oxygen-2L at bedtime Mental status improved Appreciate Neurology Input Admitting physician contacted transplant team at [facility] - agree w/ nocturnal hypoxia study Patient is planned for bronchoscopy at [facility] but canceled due to hospitalization Continue Supplemental oxygen at bedtime 2 step: Needs 2 L with activity Advised to follow up with [facility] upon discharge H/O lung transplant, severe COPD Immunocompromise state Continue home meds Follows with [facility] CKD III Baseline Cr: 1.4-1.9 Monitor renal function Cr near baseline H/O Pulmonary hypertension H/O chronic intermittent nausea and vomiting/suspected delayed gastric emptying Has G-J-tube in place. History of it being repositioned 02/2021 Continue tube feeds Pancytopenia-Chronic Multifactorial Monitor DVT PX: Heparin SQ CODE STATUS Full Code Disposition Home with Home Health Total Time Total Time Spent Total Time Spent (In Minutes): 45 minutes Discharge Plan Discharge Items Patient Disposition: Home - Home Health Services Reason For Visit: DIFFICULTY WORD FINDING Discharge Diagnosis: Acute Metabolic Encephalopathy Nocturnal Hypoxia Activity: Per Instructions section Exercise/Sports: Wait until after follow-up appointment Non-emergency contact: Primary Care Provider and Specialist Call non-emergency contact if: you have any medication questions, your symptoms worsen, your pain is concerning for you and you have a fever Follow-up/Referrals: Jeferson Vinson MD [Primary Care Provider] - (Date & Time 05/26/2021 11:00 AM Provider Jeferson Vinson III, MD Department [facility] ) Diet: Heart Healthy Diet Texture: Easy to Chew Addtl Attending Provider Instructions: Follow up with your primary care physician Dr. Vinson on 05/26/2021 11:00 AM Follow up with [facility], Transplant center in 1 week as advised --- Use supplemental oxygen via nasal cannula 2 L at bedtime and with activity. --Consider getting sleep study as outpatient. Seek immediate medical attention if your symptoms reoccur or worsen Please take all medications as instructed on discharge list below. Please call if you have any questions or problems. You can reach a [facility] hospitalist on duty at [facility] 24 hours a day by calling [phone] Pending Studies at Discharge: No Stand-Alone Forms: My [facility], Smoking Cessation Medications and DC Order Prescriptions: Continued pantoprazole [Protonix] 40 mg tablet,delayed release (DR/EC) 40 mg PO DAILY@1200 RF: 0 valganciclovir [Valcyte] 450 mg Tablet 450 mg PO DAILY@1200 RF: 0 Domperidone 20 mg PO QID RF: 0 amitriptyline 50 mg tablet 50 mg PO HS RF: 0 tacrolimus 1 mg Capsule 4.5 mg PO BID RF: 0 sennosides [senna] 8.6 mg Tablet 8.6 mg PO HS PRN (Reason: Constipation) RF: 0 albuterol sulfate 2.5 mg /3 mL (0.083 %) Solution For Nebulization 2.5 mg INHALATION Q4H PRN (Reason: Shortness Of Breath) RF: 0 citalopram 10 mg tablet 10 mg PO DAILY@1200 RF: 0 acetaminophen 500 mg Tablet 1,000 mg PO HS PRN (Reason: Pain) RF: 0 lorazepam 0.5 mg tablet 0.5 mg sublingual BID RF: 0 metoprolol tartrate 50 mg tablet 50 mg PO BID RF: 0 everolimus (immunosuppressive) 0.5 mg Tablet 2 mg PO BID RF: 0 Breo Ellipta 200-25 mcg/dose blister with device 1 ea INHALATION QAM RF: 0 magnesium oxide 400 mg (241.3 mg magnesium) Tablet 400 mg PO BID Qty: 14 RF: 0 azithromycin 250 mg Tablet 250 mg PO DAILY@1200 RF: 0 sulfamethoxazole-trimethoprim [Bactrim] 400-80 mg tablet 1 tab PO 2XWK RF: 0 prochlorperazine maleate [Compazine] 10 mg tablet 10 mg PO BID PRN (Reason: Nausea And Vomiting) RF: 0 hydrocortisone [Cortef] 20 mg tablet See Rx Instructions .ROUTE .COMPLEX RF: 0 Discontinued cefuroxime axetil 500 mg tablet 500 mg PO BID 4 Days Qty: 8 RF: 0 Discharge Orders: Discharge Order (Routine); Ordered 05/21/21 Ordered By: Garrett Estrada/Other Patient Handouts: A1C Admission Data Admit Date/Time: 05/19/21 13:17 Attending Provider: Garrett Steiner Admit Provider: Mickey Cormier Primary Care Provider: Jeferson Vinson Other Providers: Mickey Cormier ; Hira Kate ; [facility]
== END 2021-05-21 15:12 | disposition home health service (06) | DRG 154 ==
LOC: EDINP 10:40 → ED 10:40 → SUATTDRO 17:32 → 3E 20:53

== ENCOUNTER 2021-07-12 09:46 | Inpatient (IN) ==
--- NOTE | 2021-07-12 10:39 | Emergency Department Note ---
History of Present Illness General Chief complaint: Lethargic Stated complaint: FALL, NO BALANCE, CANT EAT, LETHARGIC Time Seen by Provider: 07/12/21 10:15 History of Present Illness 61-year-old female presents with weakness, nonproductive cough, dry heaves and a fall today. The patient is a lung transplant patient. She is continuously on home oxygen at 2 L. The patient had some blood work done recently from [facility] in [place] that showed that her white blood cell count was low. On Monday, and Monday her gave her injections of Neupogen. Since that time she has become weak. She developed a cough on Monday that is productive of minimal clear sputum. She has had some dry heaves. This morning she fell because of her weakness. She does have a PEG tube. She has not needed to use it since . She had been using this because of poor nutrition. The patient has been eating and drinking okay. No additional complaints. Home Medications Medication Instructions Recorded Confirmed Type pantoprazole 40 mg tablet,delayed 40 mg PO DAILY@1200 01/24/20 05/18/21 History release (Protonix) valganciclovir 450 mg tablet 450 mg PO DAILY@1200 01/24/20 05/18/21 History (Valcyte) hydrocortisone 20 mg tablet See Rx Instructions .ROUTE .COMPLEX 09/08/20 05/18/21 History (Cortef) prochlorperazine maleate 10 mg 10 mg PO BID PRN 09/08/20 05/18/21 History tablet (Compazine) sulfamethoxazole 400 1 tab PO 2XWK 09/08/20 05/18/21 History mg-trimethoprim 80 mg tablet (Bactrim) Domperidone 20 mg PO QID 10/21/20 05/18/21 History amitriptyline 50 mg tablet 50 mg PO HS 02/09/21 05/18/21 History tacrolimus 1 mg capsule, 4.5 mg PO BID 02/09/21 05/18/21 History immediate-release acetaminophen 500 mg tablet 1,000 mg PO HS PRN 05/07/21 05/18/21 History albuterol sulfate 2.5 mg INHALATION Q4H PRN 05/07/21 05/18/21 History citalopram 10 mg tablet 10 mg PO DAILY@1200 05/07/21 05/18/21 History everolimus (immunosuppressive) 0.5 2 mg PO BID 05/07/21 05/18/21 History mg tablet fluticasone furoate 200 1 ea INHALATION QAM 05/07/21 05/18/21 History mcg-vilanterol 25 mcg/dose inhalation powder (Breo Ellipta) lorazepam 0.5 mg tablet 0.5 mg SUBLINGUAL BID 05/07/21 05/18/21 History metoprolol tartrate 50 mg tablet 50 mg PO BID 05/07/21 05/18/21 History sennosides 8.6 mg tablet (senna) 8.6 mg PO HS PRN 05/07/21 05/18/21 History magnesium oxide 400 mg (241.3 mg 400 mg PO BID #14 tab 05/16/21 05/18/21 Rx magnesium) tablet azithromycin 250 mg tablet 250 mg PO DAILY@1200 05/18/21 05/18/21 History Allergies Allergy/AdvReac Type Severity Reaction Status Date / Time glimepiride AdvReac Severe Fainting Verified 05/18/21 15:22 Past Med/Surg History Medical History ASCUS of cervix with negative high risk HPV Bronchiectasis following lung transplantation Cholesteatoma of both middle ears Chronic mastoiditis Chronic obstructive pulmonary disease Chronic respiratory failure with hypoxia and hypercapnia Chronic tympanomastoiditis Encounter for mastoidectomy cavity debridement History of actinic keratosis Hypercholesterolemia LGSIL on Pap smear of cervix Osteoporosis Paroxysmal A-fib Postmenopausal Pulmonary emphysema Pulmonary hypertension Surgical History History of colposcopy History of ear surgery Hx of colonoscopy Hx of tonsillectomy Lung transplant status, bilateral 11/11/2019 [facility] [place] S/P cardiac cath S/P dilation and curettage S/P wisdom tooth extraction Family History Mother Adenocarcinoma of lung Osteoporosis Rheumatoid arthritis Lung cancer Myocardial infarction Aunt Breast cancer maternal aunt Grandfather (Paternal) Colorectal cancer Father Lung cancer Denies family history of Ovarian cancer Social History Smoking Status: Never smoker Tobacco Type: Cigarettes Cigarettes Per Day: 1 ppd for 23 years; Second Hand Exposure: No; Hx Alcohol Use: No Hx Substance Use: No Preferred Language: Kiswahili Communication Ability: Impaired 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: No Beliefs That Will Affect Care: None marital status: Current Living Situation: Spouse Feels Safe at Home: Yes Assistive Devices: Walker Review of Systems A total of 10 systems reviewed and were otherwise negative Physical Exam Vital Signs Vital Signs - 24 hr 07/12/21 09:51 07/12/21 10:00 07/12/21 10:30 Temperature 36.9 C Temperature Source Oral Pulse Rate 90 87 Pulse Rate from SpO2 Sensor 86 Respiratory Rate 18 34 H Blood Pressure 146/77 H 138/91 Blood Pressure Mean 100 106 Pulse Oximetry 89 L 100 100 Oxygen Delivery Method Room Air Room Air Nasal Cannula Nasal Cannula Oxygen Flow Rate 84 4 Sepsis Recent Fever Within 48 Hours No Sepsis New/Unexplained Change in Mental Status No Sepsis Action Taken by Nursing No Action Required Oxygen Flow Rate - Titration 4 07/12/21 10:35 07/12/21 11:00 Temperature Temperature Source Pulse Rate 88 88 Pulse Rate from SpO2 Sensor 90 Respiratory Rate 18 29 H Blood Pressure 150/94 H Blood Pressure Mean 112 Pulse Oximetry 99 100 Oxygen Delivery Method Nasal Cannula Nasal Cannula Oxygen Flow Rate 4 2 Sepsis Recent Fever Within 48 Hours Sepsis New/Unexplained Change in Mental Status Sepsis Action Taken by Nursing Oxygen Flow Rate - Titration CONSTITUTIONAL/VITAL SIGNS: Reviewed / noted above. GENERAL: Non-toxic in appearance. INTEGUMENTARY: Warm, dry, and [place]. HEAD: Normocephalic. EYES: without scleral icterus or trauma. ENT/OROPHARYNX: clear and moist. LYMPHADENOPATHY/NECK: Is supple without lymphadenopathy or meningismus. RESPIRATORY: Rhonchi on the right. Some scattered wheezes on the left. No increased work of breathing. CARDIOVASCULAR: Regular rate and rhythm. GI/ABDOMEN: Soft and nontender. No organomegaly or pulsatile mass. EXTREMITIES: Warm and well perfused. BACK: No CVA tenderness. NEUROLOGICAL: Intact without focal deficits. PSYCHIATRIC: normal affect. MUSCULOSKELETAL: Normally developed with good muscle tone. TRIAGE NURSING DOCUMENTATION REVIEWED. Course Administered Medications Discontinued Medications Albuterol (Albut/Ipratrop 3mg/0.5mg Neb 3 Ml Vial) 3 ml NEB NOW STA; Protocol Stop: 07/12/21 10:41 Last Admin: 07/12/21 10:54 Dose: 3 ml Documented by: [id number] Sodium Chloride (Nss) 500 mls @ 999 mls/hr IV .Q31M FRANCIE Stop: 07/12/21 11:15 Last Infusion: 07/12/21 11:24 Dose: 0 mls/hr Documented by: [id number] Admin: 07/12/21 10:53 Dose: 999 mls/hr Documented by: [id number] Medical Decision Making Differential Diagnosis The differential was considered includes acute myocardial infarction, acute coronary syndrome, myocarditis, pericarditis, pericardial effusions /tamponad, esophageal perforation, pulmonary embolism, pneumonia, pneumothorax, card iomyopathy, congestive heart, anemia , COPD/asthma exacerbation. Medical Records Attestation: I reviewed the patient's medical records. Home Medications Current Medication List: was personally reviewed by me Laboratory Data Attestation: I reviewed the patient's lab results. Result diagrams: 07/12/21 10:07 07/12/21 10:07 Lab Results 07/12/21 07/12/21 07/12/21 Range/Units 10: 10:07 10:07 WBC 4.75 L (4.8-10.8) K/uL RBC 3.31 L (4.2-5.4) M/uL Hgb 10.0 L (12.0-16.0) g/dL Hct 30.3 L (37-47) % MCV 91.5 (80-100) fL MCH 30.2 (25-34) pg MCHC 33.0 (32-36) g/dL RDW Std Deviation 52.9 H (36.4-46.3) fL RDW Coeff of Janina 15.7 H (11.5-14.5) % Plt Count 118 L (130-400) K/uL MPV 10.0 (7.4-10.4) fL Immature Gran % (Auto) 7.2 % Neut % (Auto) 52.2 % Lymph % (Auto) 18.9 % [place] % (Auto) 16.8 % Eos % (Auto) 3.8 % Baso % (Auto) 1.1 % Neut # (Auto) 2.48 (1.4-6.5) K/uL Lymph # (Auto) 0.90 L (1.2-3.4) K/uL [place] # (Auto) 0.80 H (0.11-0.59) K/uL Eos # (Auto) 0.18 (0-0.5) K/uL Baso # (Auto) 0.05 (0-0.2) K/uL Immature Gran # (Auto) 0.34 H (0.00-0.02) K/uL Dohle Bodies 1+ Sodium 127 L (136-145) mmol/L Potassium 4.1 (3.5-5.1) mmol/L Chloride 86 L (98-107) mmol/L Carbon Dioxide 31 (21-32) mmol/L Anion Gap 10 (3-11) BUN 26 H (6-23) mg/dl Creatinine 1.41 H (0.6-1.2) mg/dl Est Cr Clr Drug Dosing 34.4 ml/min Est GFR ( Amer) 45.8 ml/min Est GFR (Non-Af Amer) 39.5 ml/min BUN/Creatinine Ratio 18.4 (10-20) Glucose 115 H (70-99(Fasting)) mg/dl Calcium 9.5 (8.5-10.1) mg/dl Magnesium 1.5 L (1.7-2.4) mg/dl Total Bilirubin 0.5 (0.2-1.0) mg/dl AST 32 (13-39) U/L ALT 16 (7-52) U/L Alkaline Phosphatase 93 (34-104) U/L Total Creatine Kinase 77 (26-192) U/L Troponin I 0.08 H* (0-0.04) ng/ml Total Protein 6.8 (6.0-8.3) gm/dl Albumin 3.7 (3.4-5.0) gm/dl Globulin 3.1 (2.5-4.0) gm/dl Albumin/Globulin Ratio 1.2 (0.9-2) TSH 2.136 (0.300-4.500) uIu/ml Adenovirus (PCR) (NotDetected) B. pertussis DNA (PCR) (NotDetected) B.parapertussis DNA PCR (NotDetected) C. pneumoniae DNA (PCR) (NotDetected) Coronavirus OC43 (PCR) (NotDetected) Coronavirus HKU1 (PCR) (NotDetected) Coronavirus 229E (PCR) (NotDetected) SARS-CoV-2 (PCR) (NotDetected) Coronavirus NL63 (PCR) (NotDetected) Human Metapneumovir PCR (NotDetected) Influenza Type A (PCR) (NotDetected) Influenza Type B (PCR) (NotDetected) M. pneumoniae (PCR) (NotDetected) Parainfluenza 1 (PCR) (NotDetected) Parainfluenza 2 (PCR) (NotDetected) Parainfluenza 3 (PCR) (NotDetected) Parainfluenza 4 (PCR) (NotDetected) RSV (PCR) (NotDetected) Entero/Rhino (PCR) (NotDetected) 07/12/21 Range/Units 10:56 WBC (4.8-10.8) K/uL RBC (4.2-5.4) M/uL Hgb (12.0-16.0) g/dL Hct (37-47) % MCV (80-100) fL MCH (25-34) pg MCHC (32-36) g/dL RDW Std Deviation (36.4-46.3) fL RDW Coeff of Janina (11.5-14.5) % Plt Count (130-400) K/uL MPV (7.4-10.4) fL Immature Gran % (Auto) % Neut % (Auto) % Lymph % (Auto) % [place] % (Auto) % Eos % (Auto) % Baso % (Auto) % Neut # (Auto) (1.4-6.5) K/uL Lymph # (Auto) (1.2-3.4) K/uL [place] # (Auto) (0.11-0.59) K/uL Eos # (Auto) (0-0.5) K/uL Baso # (Auto) (0-0.2) K/uL Immature Gran # (Auto) (0.00-0.02) K/uL Dohle Bodies Sodium (136-145) mmol/L Potassium (3.5-5.1) mmol/L Chloride (98-107) mmol/L Carbon Dioxide (21-32) mmol/L Anion Gap (3-11) BUN (6-23) mg/dl Creatinine (0.6-1.2) mg/dl Est Cr Clr Drug Dosing ml/min Est GFR ( Amer) ml/min Est GFR (Non-Af Amer) ml/min BUN/Creatinine Ratio (10-20) Glucose (70-99(Fasting)) mg/dl Calcium (8.5-10.1) mg/dl Magnesium (1.7-2.4) mg/dl Total Bilirubin (0.2-1.0) mg/dl AST (13-39) U/L ALT (7-52) U/L Alkaline Phosphatase (34-104) U/L Total Creatine Kinase (26-192) U/L Troponin I (0-0.04) ng/ml Total Protein (6.0-8.3) gm/dl Albumin (3.4-5.0) gm/dl Globulin (2.5-4.0) gm/dl Albumin/Globulin Ratio (0.9-2) TSH (0.300-4.500) uIu/ml Adenovirus (PCR) Not Detected (NotDetected) B. pertussis DNA (PCR) Not Detected (NotDetected) B.parapertussis DNA PCR Not Detected (NotDetected) C. pneumoniae DNA (PCR) Not Detected (NotDetected) Coronavirus OC43 (PCR) Not Detected (NotDetected) Coronavirus HKU1 (PCR) Not Detected (NotDetected) Coronavirus 229E (PCR) Not Detected (NotDetected) SARS-CoV-2 (PCR) Not Detected (NotDetected) Coronavirus NL63 (PCR) Not Detected (NotDetected) Human Metapneumovir PCR Not Detected (NotDetected) Influenza Type A (PCR) Not Detected (NotDetected) Influenza Type B (PCR) Not Detected (NotDetected) M. pneumoniae (PCR) Not Detected (NotDetected) Parainfluenza 1 (PCR) Not Detected (NotDetected) Parainfluenza 2 (PCR) Not Detected (NotDetected) Parainfluenza 3 (PCR) Not Detected (NotDetected) Parainfluenza 4 (PCR) Not Detected (NotDetected) RSV (PCR) Not Detected (NotDetected) Entero/Rhino (PCR) Not Detected (NotDetected) Imaging Data Radiologist's Impression: Chest X-Ray 07/12/21 10:35 XR chest 1V portable CLINICAL HISTORY: weakness. Evaluate cardiopulmonary status COMPARISON STUDY: 05/18/2021 TECHNIQUE: 1 view of the chest FINDINGS: Single frontal view of the chest demonstrates the heart to again be mildly enlarged status post previous cardiothoracic surgery. Minimal chronic lung changes seen at the left costophrenic angle. The lungs are otherwise clear of alveolar opacities. There is no evidence for pleural effusion. There is no evidence for vascular congestion. There is no acute osseous pathology. IMPRESSION: No acute cardiopulmonary disease. ACT 112: Negative or not required by law. Electronically signed by: Chandler Mendosa M.D. 07/12/2021 11:13 AM ECG Data Attestation: I personally reviewed and interpreted this ECG as follows: Additional Comments: Twelve-lead EKG: Per my interpretation shows a normal sinus rhythm at a rate of 85. No ST elevation. No PVCs. Normal QTC. MDM Narrative Patient presents to the ED with a chief complaint of weakness, cough and a fall today. Did not injure herself related to the fall but was concerned about her weakness. Recently had a low white blood cell count and was placed on Neupogen on Monday, and Monday. Symptoms have been going on for the past few days. She does wear oxygen continuously. She usually uses 2 L. She does have history of lung transplant. The patient's exam findings suggest some rhonchi on the right and some scattered wheezes on the left. She was given a DuoNeb treatment for this. Sodium is 127, BUN is 26. Creatinine is 1.4. Magnesium is 1.5. Troponin is 0.08. Bio fire test was negative. EKG shows a normal sinus rhythm at a rate of 85. Chest x-ray was negative for acute disease. The patient was treated with some normal saline IV. She will be seen by the hospitalist for further inpatient evaluation and care. Impression & Plan Episode of generalized weakness, Fall, Acute hyponatremia, Elevated troponin Discharge Plan Visit Data Chief Complaint: Lethargic Stated Complaint: FALL, NO BALANCE, CANT EAT, LETHARGIC ED Provider: Nolan Rdz Discharge Problem: Episode of generalized weakness, Fall, Acute hyponatremia, Elevated troponin Patient Disposition: Being Evaluated by Hospitalist Forms Stand Alone Forms: My [facility] Prescriptions Prescriptions: No Action pantoprazole [Protonix] 40 mg tablet,delayed release (DR/EC) 40 mg PO DAILY@1200 RF: 0 valganciclovir [Valcyte] 450 mg Tablet 450 mg PO DAILY@1200 RF: 0 Domperidone 20 mg PO QID RF: 0 amitriptyline 50 mg tablet 50 mg PO HS RF: 0 tacrolimus 1 mg Capsule 4.5 mg PO BID RF: 0 sennosides [senna] 8.6 mg Tablet 8.6 mg PO HS PRN (Reason: Constipation) RF: 0 albuterol sulfate 2.5 mg /3 mL (0.083 %) Solution For Nebulization 2.5 mg INHALATION Q4H PRN (Reason: Shortness Of Breath) RF: 0 citalopram 10 mg tablet 10 mg PO DAILY@1200 RF: 0 acetaminophen 500 mg Tablet 1,000 mg PO HS PRN (Reason: Pain) RF: 0 lorazepam 0.5 mg tablet 0.5 mg sublingual BID RF: 0 metoprolol tartrate 50 mg tablet 50 mg PO BID RF: 0 everolimus (immunosuppressive) 0.5 mg Tablet 2 mg PO BID RF: 0 Breo Ellipta 200-25 mcg/dose blister with device 1 ea INHALATION QAM RF: 0 magnesium oxide 400 mg (241.3 mg magnesium) Tablet 400 mg PO BID Qty: 14 RF: 0 azithromycin 250 mg Tablet 250 mg PO DAILY@1200 RF: 0 sulfamethoxazole-trimethoprim [Bactrim] 400-80 mg tablet 1 tab PO 2XWK RF: 0 prochlorperazine maleate [Compazine] 10 mg tablet 10 mg PO BID PRN (Reason: Nausea And Vomiting) RF: 0 hydrocortisone [Cortef] 20 mg tablet See Rx Instructions .ROUTE .COMPLEX RF: 0 Referrals Referrals: Jeferson Vinson MD [Primary Care Provider] -
[2021-07-12] MEDS ORDERED: ALBUT/IPRATROP 3MG/0.5MG NEB 3 ML VIAL NEB STA (10:40)
[2021-07-12] MEDS ORDERED: SODIUM CHLORIDE 0.9% 500 ML IV SCH (10:45)
[2021-07-12 10:52] LABS: Hematocrit (blood only) 30.3 % (37-47); Mean Corpuscular Hemoglobin 30.2 pg (25-34); Mean Corpuscular Volume 91.5 fL (80-100); Platelet Count 118 K/uL (130-400); RDW Coefficient of Variation 15.7 % (11.5-14.5); RDW Standard Deviation 52.9 fL (36.4-46.3); Red Blood Count 3.31 M/uL (4.2-5.4); White Blood Count 4.75 K/uL (4.8-10.8)
[2021-07-12 11:08] LABS: Troponin I 0.08 ng/ml (0-0.04)
--- NOTE | 2021-07-12 11:15 | XRay Report ---
XR chest 1V portable CLINICAL HISTORY: weakness. Evaluate cardiopulmonary status COMPARISON STUDY: 05/18/2021 TECHNIQUE: 1 view of the chest FINDINGS: Single frontal view of the chest demonstrates the heart to again be mildly enlarged status post previ ous cardiothoracic surgery. Minimal chronic lung changes seen at the left costophrenic angle. The neva gs are otherwise clear of alveolar opacities. There is no evidence for pleural effusion. There is no evidence for vascular congestion. There is no acute osseous pathology. IMPRESSION: No acute cardiopulmonary disease. ACT 112: Negative or not required by law. Electronically signed by: Chandler Mendosa M.D. 07/12/2021 11:13 AM
[2021-07-12 11:17] LABS: Albumin Globulin Ratio 1.2 (0.9-2); Albumin Level 3.7 gm/dl (3.4-5.0); BUN Creatinine Ratio 18.4 (10-20); Bilirubin,Total 0.5 mg/dl (0.2-1.0); Calcium 9.5 mg/dl (8.5-10.1); Creatinine Clr Calc Pharmacy 34.4 ml/min; Est GFR (African American) 45.8 ml/min; Est GFR (Non-African American) 39.5 ml/min; Globulin 3.1 gm/dl (2.5-4.0); Magnesium 1.5 mg/dl (1.7-2.4); Total Protein 6.8 gm/dl (6.0-8.3)
[2021-07-12 11:24] LABS: Basophils # (auto) 0.05 K/uL (0-0.2); Basophils % (auto) 1.1 %; Dohle Bodies 1+; Eosinophils # (auto) 0.18 K/uL (0-0.5); Eosinophils % (auto) 3.8 %; Immature Granulocytes # (auto) 0.34 K/uL (0.00-0.02); Immature Granulocytes % (auto) 7.2 %; Lymphocytes % (auto) 18.9 %; Monocytes % (auto) 16.8 %; Neutrophils # (auto) 2.48 K/uL (1.4-6.5); Neutrophils % (auto) 52.2 %
[2021-07-12 11:30] LABS: Potassium 4.1 mmol/L (3.5-5.1)
[2021-07-12 11:59] LABS: Adenovirus PCR Not Detected (NotDetected); Bordetella parapertussis PCR Not Detected (NotDetected); Bordetella pertussis PCR Not Detected (NotDetected); Chlamydia pneumoniae PCR Not Detected (NotDetected); Coronavirus 229E PCR Not Detected (NotDetected); Coronavirus CoV-2 (COVID19)PCR Not Detected (NotDetected); Coronavirus HKU1 PCR Not Detected (NotDetected); Coronavirus NL63 PCR Not Detected (NotDetected); Coronavirus OC43PCR Not Detected (NotDetected); Human Metapneumovirus PCR Not Detected (NotDetected); Influenza A PCR Not Detected (NotDetected); Influenza B PCR Not Detected (NotDetected); Mycoplasma pneumoniae PCR Not Detected (NotDetected); Parainfluenza Virus 1 PCR Not Detected (NotDetected); Parainfluenza Virus 2 PCR Not Detected (NotDetected); Parainfluenza Virus 3 PCR Not Detected (NotDetected); Parainfluenza Virus 4 PCR Not Detected (NotDetected); Respiratory Syncytial VirusPCR Not Detected (NotDetected); Rhinovirus/Enterovirus PCR Not Detected (NotDetected)
[2021-07-12] MEDS: MAGNESIUM SULFATE / D5W 1 GM/100 ML BAG IV SCH ×4 (12:37→20:27)
[2021-07-12] MEDS ORDERED: CONSULT PHARMACY STA (13:20)
[2021-07-12] MEDS ORDERED: CEFEPIME 2,000 MG/20 ML VIAL IV STA (13:30)
--- NOTE | 2021-07-12 13:53 | CT Scan Report ---
CT head/brain wo con CLINICAL HISTORY: fall . Pain. Nausea. COMPARISON STUDY: 05/07/2021 CT DOSE: TECHNIQUE: Standard CT of the Brain was performed without IV contrast. A dose lowering technique was utilized adhering to the principles of ALARA. FINDINGS: Extraaxial space: There is no evidence for subdural hematoma. There are no extra-axial fluid collecti ons. Ventricles and cisterns: The ventricles are normal in size and configuration. There is no evidence f or midline shift or mass effect. Parenchyma: There is no subarachnoid or intraparenchymal hemorrhage. There is no evidence for an acu te infarct or cerebral edema. There is mild cerebral cortical atrophy and decreased attenuation in th e periventricular white matter representing remote small vessel disease. There are no gross mass lesi ons. Osseous structures: There is no evidence for an acute fracture. There is decreased mucosal thickening involving the ethmoid air cells bilaterally. The remaining visualized paranasal sinuses are clear. T here is asymmetric mucosal thickening involving the mastoid air cells on the right when compared to t he left. Soft tissues: There is no evidence for focal soft tissue swelling. IMPRESSION: No acute intracerebral pathology. Mild cerebral cortical atrophy and remote small vessel disease are again seen. There is interval improvement of mild ethmoid sinusitis. There is again mucos al thickening of the right mastoid air cells. ACT 112: Negative or not required by law. Electronically signed by: Chandler Mendosa M.D. 07/12/2021 1:51 PM
--- NOTE | 2021-07-12 14:01 | History & Physical Report ---
Date of Service July 12, 2021 Assessment & Plan (1) Lung transplant status, bilateral: (2) Acute hyponatremia: (3) Elevated troponin: (4) Chronic respiratory failure with hypoxia: Plan: Patient is a 61-year-old female with hx of bilateral lung transplant in 2019 at [facility] with complicated course including difficulty weaning off the ventilator requiring tracheostomy, recurrent pneumonia and airway stenosis with stent in right bronchus intermedius, h/o pulmonary hypertension no longer on medications, paroxysmal atrial fibrillation, CKD III, history chronic nausea and vomiting with G-J tube in place with tube feedings, anemia who presents to ED due to ill feeling x3 days. Significance recently hospitalized 06/26-06/28 at [facility] due to abnormal bronch. She underwent bronchoscopy earlier in the month, 06/16/21, and there was noted yellowish secretions and stenoses of the right upper lobe NBI that required laser and balloon dilatation. Path was suggestive of large airways under inflammation and scarring but BAL RVP and cultures came back nega tive. Treated with 3g pulse methylprednisolone and d/c to home. Weakness Cough S/P B/L lung transplant [facility] 2019, recent bronchoscopy 06/16/21 Chronic hypoxic respiratory failure Fall pt with increased resp sx including cough, sob and wheezing x 3 day biofire panel negative CXR: w/o abnormality CT Chest: Redemonstration of bronchiectasis, bronchial wall thickening, and diffuse lower lobe predominant airspace opacities. Overall appearance is unchanged from multiple prior exams. Postsurgical changes of bilateral lung transplant. Head CT: No acute intracerebral pathology. Mild cerebral cortical atrophy and remote small vessel disease are again seen. There is interval improvement of mild ethmoid sinusitis. There is again mucosal thickening of the right mastoid air cells. consult pulm Have attempted to reach [facility] transplant team [phone] w/o success at this point, want to discuss steriod tx aggressive pulm toilet with nebs, flutter valve, incentive spirometry, muccinex IV cefepime empirically sputum culture, MRSA nasal screen, procal continue tacrolimus, everolimus, azathioprine continue chronic bactrim, azithromax, valganciclovir continue breo obtain tacrolimus level titrate O2 to 90-92%, pt is chronically on 2L of O2 at HS and with exertion blood culture pending Urine C&S ordered Acute hyponatremia/hypochloremia urine osm, serum osm, urine na pending ? 2/2 to dehydration gentle hydration, repeat labs this evening Hypomagnesemia replete Elevated troponin ecg unchanged, no chest pain cycle trop CKD-3 baseline cr 1.4-1.8 bun/cr stable avoid nephrotoxic agents PAF continue metoprolol not on OAC Pancytopenia recently received Neupogen counts stable Dvt ppx: SQ Heparin BID Full Code Dispo: med tele PCP: Karel Pt was seen and examined in collaboration with Dr. Weems, please see addendum History of Present Illness Chief Complaint: Ill feeling x 3 days. Primary Care Provider: Jeferson Vinson MD Patient is a 61-year-old female with hx of bilateral lung transplant in 2019 at [facility] with complicated course including difficulty weaning off the ventilator requiring tracheostomy, recurrent pneumonia and airway stenosis with stent in right bronchus intermedius, h/o pulmonary hypertension no longer on medications, paroxysmal atrial fibrillation, CKD III, history chronic nausea and vomiting with G-J tube in place with tube feedings, anemia who presents to ED due to ill feeling x3 days. Her is at bedside. Significance patient was recently hospitalized at [facility] on 06/25 06/28 due to abnormal bronchoscopy results from 06/16/21. She underwent bronchoscopy earlier in the month and there was noted yellowish secretions and stenoses of the right upper lobe NBI that required laser and balloon dilatation. Path was suggestive of large airways under inflammation and scarring but BAL RVP and cultures came back negative. While hospitalized she did require 3g pulse methylprednisolone which was complicated by mild hyperglycemia and hyperkalemia. Her oxygen requirements returned to baseline and she was discharged to home. Was doing well until 3 days ago after receiving Neupogen injection due to leukopenia. She developed wet cough, but unable to produce, sweats, dizziness and off-balance feeling, increasing shortness of breath and nausea. She denies any sick contacts and is fully vaccinated for COVID-19. She was recently hospitalized May 2021 with influenza A. She denies documented fever or chills, lightheadedness, syncope or presyncope, chest pain, palpitations, shortness of breath at rest, sinus congestion, sore throat, emesis, abdominal pain, change in bowel or urinary habits. She does have chronic nausea and she feels this is unchanged. She has G-tube in place but this has not been used since as she had been eating and drinking and taking her medications without difficulty. She does feel more short of breath as well as wheezing. She has home oxygen that she has to wear with exertion and at night, but encouraged her to wear throughout the day due to not feeling well. She has not been eating and drinking well the past 3 days. She has not been using anything [id number] for symptoms. In ED patient did have documented hypoxia but this was after exertion and off oxygen at 86%. She was placed on 2 L of oxygen which improved her oxygenation status. She remained afebrile in ED. Lab work notable for pancytopenia with WBC 4.75, H&H 10.0 and 30.3, platelet 118, sodium 127, chloride 86, stable BUN/creatinine 26 1.41, mag 1.5 mildly elevated troponin of 1.08. Her bio fire respiratory panel was negative for respiratory pathogens. She received IV fluid and nebulizer in ED. Allergies Allergy/AdvReac Type Severity Reaction Status Date / Time glimepiride AdvReac Severe Fainting Verified 07/12/21 12:30 Home Medications Medication Instructions Recorded Confirmed Type pantoprazole 40 mg tablet,delayed 40 mg PO DAILY@1200 01/24/20 07/12/21 History release (Protonix) valganciclovir 450 mg tablet 450 mg PO DAILY@1200 01/24/20 07/12/21 History (Valcyte) hydrocortisone 20 mg tablet 20 mg PO DAILY 09/08/20 07/12/21 History (Cortef) prochlorperazine maleate 10 mg 10 mg PO BID PRN 09/08/20 07/12/21 History tablet (Compazine) sulfamethoxazole 400 1 tab PO 2XWK 09/08/20 07/12/21 History mg-trimethoprim 80 mg tablet (Bactrim) Domperidone 20 mg PO QID 10/21/20 07/12/21 History amitriptyline 50 mg tablet 50 mg PO HS 02/09/21 07/12/21 History tacrolimus 1 mg capsule, 4.5 mg PO BID 02/09/21 07/12/21 History immediate-release acetaminophen 500 mg tablet 500 mg PO Q6 PRN 05/07/21 07/12/21 History albuterol sulfate 2.5 mg INHALATION Q4H PRN 05/07/21 07/12/21 History citalopram 10 mg tablet 10 mg PO QAM 05/07/21 07/12/21 History everolimus (immunosuppressive) 0.5 2 mg PO BID 05/07/21 07/12/21 History mg tablet fluticasone furoate 200 1 ea INHALATION QAM 05/07/21 07/12/21 History mcg-vilanterol 25 mcg/dose inhalation powder (Breo Ellipta) lorazepam 0.5 mg tablet 0.5 mg SUBLINGUAL BID 05/07/21 07/12/21 History metoprolol tartrate 50 mg tablet 50 mg PO BID 05/07/21 07/12/21 History sennosides 8.6 mg tablet (senna) 17.2 mg PO HS PRN 05/07/21 07/12/21 History azithromycin 250 mg tablet 250 mg PO DAILY@1200 05/18/21 07/12/21 History azathioprine 50 mg tablet 50 mg PO DAILY 07/12/21 07/12/21 History hydrocortisone 10 mg tablet 10 mg PO BID 07/12/21 07/12/21 History magnesium oxide 400 mg (241.3 mg 400 mg PO DAILY 07/12/21 07/12/21 History magnesium) tablet Past Med/Surg History Medical History ASCUS of cervix with negative high risk HPV Bronchiectasis following lung transplantation Cholesteatoma of both middle ears Chronic mastoiditis Chronic obstructive pulmonary disease Chronic respiratory failure with hypoxia and hypercapnia Chronic tympanomastoiditis Encounter for mastoidectomy cavity debridement History of actinic keratosis Hypercholesterolemia LGSIL on Pap smear of cervix Osteoporosis Paroxysmal A-fib Postmenopausal Pulmonary emphysema Pulmonary hypertension Surgical History History of colposcopy History of ear surgery Hx of colonoscopy Hx of tonsillectomy Lung transplant status, bilateral 11/11/2019 [facility] S/P cardiac cath S/P dilation and curettage S/P wisdom tooth extraction Family History Mother Adenocarcinoma of lung Osteoporosis Rheumatoid arthritis Lung cancer Myocardial infarction Aunt Breast cancer maternal aunt Grandfather (Paternal) Colorectal cancer Father Lung cancer Denies family history of Ovarian cancer Social History (Updated 07/12/21 @ 13:46 by Marielos Kholi PA-C) Smoking Status: Former smoker Tobacco Type: Cigarettes Cigarettes Per Day: 1 ppd for 23 years; Second Hand Exposure: No; Hx Alcohol Use: No Hx Substance Use: No Preferred Language: 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 Beliefs That Will Affect Care: None marital status: Current Living Situation: Spouse Feels Safe at Home: Yes Assistive Devices: Walker Review of Systems Review of Systems: All systems reviewed & are unremarkable except as noted in HPI & below Physical Exam Physical Exam: Constitutional: Chronically ill appearing female, vitals as above, NAD, sitting up in bed, pleasant, conversing easily Head: Normocephalic, Atraumatic Eyes: PERRL, conjunctivae normal, anicteric sclerae ENMT: external ear and nose normal, oropharynx normal Neck: trachea midline, + scaring from prior trach, no thyromegaly normal visual inspection Respiratory: normal respiratory effort,on 2L of O2 via NC, b/l course breath so unds with diffuse rhonchi and wheezing along with prolonged exp phase, no rales. Normal insp/exp effort, no accessory muscle use Cardiovascular: RRR, no murmur, no edema Vessels: no JVD or carotid bruit Chest: normal inspection of chest Abdomen: normal bowel sounds, soft, nontender, no hepatosplenomegaly + G tube in place, no erythema, tube appears unkempt Musculoskeletal: no cyanosis or clubbing, extremities motor strength 5/5 Skin: no rashes, warm and dry moderate turgor Neurologic: PERRL, EOMI, accommodation nl, no face palsy, no dysarthria CN's II-XI intact bilaterally and moves all extremities Psychiatric: A+Ox3, euthymic affect Lymphatic: no cervical or axillary lymphadenopathy : deferred Results & Data Results & Data ([facility]) Vital Signs (Past 12 Hours) Vital Signs Temp Pulse Resp BP Pulse Ox 07/12/21 12:00 98 H 26 H 137/87 97 07/12/21 11:00 88 29 H 150/94 H 100 07/12/21 10:35 88 18 99 07/12/21 10:30 87 34 H 138/91 100 07/12/21 10:00 100 07/12/21 09:51 36.9 C 90 18 146/77 H 89 L Diagnostic Findings Short CBC 07/12/21 07/12/21 Range/Units 10:07 10:07 WBC 4.75 L (4.8-10.8) K/uL Hgb 10.0 L (12.0-16.0) g/dL Hct 30.3 L (37-47) % Plt Count 118 L (130-400) K/uL Sodium 127 L (136-145) mmol/L Creatinine 1.41 H (0.6-1.2) mg/dl Troponin I 0.08 H* (0-0.04) ng/ml BMP 07/12/21 10:07 Sodium 127 L Potassium 4.1 Chloride 86 L Carbon Dioxide 31 BUN 26 H Creatinine 1.41 H Glucose 115 H Calcium 9.5 Cardiac Enzymes 07/12/21 Range/Units 10:07 Total Creatine Kinase 77 (26-192) U/L Troponin I 0.08 H* (0-0.04) ng/ml Liver Function 07/12/21 Range/Units 10:07 Total Bilirubin 0.5 (0.2-1.0) mg/dl AST 32 (13-39) U/L ALT 16 (7-52) U/L Alkaline Phosphatase 93 (34-104) U/L Albumin 3.7 (3.4-5.0) gm/dl Medications Administered Medication List Magnesium Sulfate/Dextrose (Magnesium Sulfate / D5w) 1 gm in 100 mls @ 100 mls/hr IV Q1H FRANCIE Stop: 07/12/21 14:27 Last Admin: 07/12/21 12:37 Dose: 100 mls/hr Documented by: [id number] Discontinued Medications Albuterol (Albut/Ipratrop 3mg/0.5mg Neb 3 Ml Vial) 3 ml NEB NOW STA; Protocol Stop: 07/12/21 10:41 Last Admin: 07/12/21 10:54 Dose: 3 ml Documented by: [id number] Sodium Chloride (Nss) 500 mls @ 999 mls/hr IV .Q31M FRANCIE Stop: 07/12/21 11:15 Last Infusion: 07/12/21 11:24 Dose: 0 mls/hr Documented by: [id number] Admin: 02/07/22 10:53 Dose: 999 mls/hr Documented by: [id number] ECG Rate (beats per minute): 87 Rhythm: normal sinus Findings: + T-wave inversion Additional Comments: unchanged from previous COVID- Results Results COVID-19 Adm Lab Results: RBC 3.31 M/uL (4.2-5.4) L 07/12/21 WBC 4.75 K/uL (4.8-10.8) L 07/12/21 Hgb 10.0 g/dL (12.0-16.0) L 07/12/21 Hct 30.3 % (37-47) L 07/12/21 Plt Count 118 K/uL (130-400) L 07/12/21 Neutrophils (%) (Auto) 52.2 % 07/12/21 Lymphocytes (%) (Auto) 18.9 % 07/12/21 Monocytes # (Auto) 0.80 K/uL (0.11-0.59) H 07/12/21 Eosinophils # (Auto) 0.18 K/uL (0-0.5) 07/12/21 Immature Granulocyte % (Auto) 7.2 % 07/12/21 Neutrophils # (Auto) 2.48 K/uL (1.4-6.5) 07/12/21 Lymphocytes # (Auto) 0.90 K/uL (1.2-3.4) L 07/12/21 Monocytes # (Auto) 0.80 K/uL (0.11-0.59) H 07/12/21 Eosinophils # (Auto) 0.18 K/uL (0-0.5) 07/12/21 Basophils # (Auto) 0.05 K/uL (0-0.2) 07/12/21 Immature Granulocyte # (Auto) 0.34 K/uL (0.00-0.02) H 07/12/21 Dohle Bodies 1+ 07/12/21 Na 127 mmol/L (136-145) L 07/12/21 K 4.1 mmol/L (3.5-5.1) 07/12/21 Cl 86 mmol/L (98-107) L 07/12/21 CO2 31 mmol/L (21-32) 07/12/21 Anion Gap 10 (3-11) 07/12/21 BUN 26 mg/dl (6-23) H 07/12/21 Creatinine 1.41 mg/dl (0.6-1.2) H 07/12/21 BUN/Creatinine Ratio 18.4 (10-20) 07/12/21 Glucose Level 115 mg/dl (70-99(Fasting)) H 07/12/21 Ca 9.5 mg/dl (8.5-10.1) 07/12/21 Phosphorus Level 3.7 mg/dl (2.5-4.9) 07/12/21 Total Bilirubin 0.5 mg/dl (0.2-1.0) 07/12/21 AST/SGOT 32 U/L (13-39) 07/12/21 ALT/SGPT 16 U/L (7-52) 07/12/21 Alkaline Phosphatase 93 U/L (34-104) 07/12/21 Total Protein 6.8 gm/dl (6.0-8.3) 07/12/21 Albumin 3.7 gm/dl (3.4-5.0) 07/12/21 Globulin 3.1 gm/dl (2.5-4.0) 07/12/21 Albumin/Globulin Ratio 1.2 (0.9-2) 07/12/21 Total CK 77 U/L (26-192) 07/12/21 Troponin I 0.08 ng/ml (0-0.04) H* 07/12/21 Procalcitonin 0.25 ng/ml (0-0.5) 07/12/21 Adenovirus (PCR) Not Detected (NotDetected) 07/12/21 B. parapertussis DNA (PCR) Not Detected (NotDetected) 07/12/21 B. pertussis DNA (PCR) Not Detected (NotDetected) 07/12/21 C. pneumoniae DNA (PCR) Not Detected (NotDetected) 07/12/21 Coronavirus Type OC43 (PCR) Not Detected (NotDetected) 07/12/21 Coronavirus Type HKU1 (PCR) Not Detected (NotDetected) 07/12/21 Coronavirus Type 229E (PCR) Not Detected (NotDetected) 07/12/21 COVID-19 PCR Not Detected (NotDetected) 07/12/21 Coronavirus Type NL63 (PCR) Not Detected (NotDetected) 07/12/21 Human Metapneumovirus (PCR) Not Detected (NotDetected) 07/12/21 Influenza Virus Type A (PCR) Not Detected (NotDetected) 07/12/21 Influenza Virus Type B (PCR) Not Detected (NotDetected) 07/12/21 M. pneumoniae (PCR) Not Detected (NotDetected) 07/12/21 Parainfluenza Type 1 (PCR) Not Detected (NotDetected) 07/12/21 Parainfluenza Type 2 (PCR) Not Detected (NotDetected) 07/12/21 Parainfluenza Type 3 (PCR) Not Detected (NotDetected) 07/12/21 Parainfluenza Type 4 (PCR) Not Detected (NotDetected) 07/12/21 RSV (PCR) Not Detected (NotDetected) 07/12/21 Enterovirus/Rhinovirus (PCR) Not Detected (NotDetected) 07/12/[address] 07/12/21 Chest X-Ray 07/12/21 Code Status & VTE Plan Code Status FULL CODE VTE Prophylaxis Plan VTE Prophylaxis will be ordered: Yes Supervising Physician Co-Signing Physician Notes 61-year-old female w/ PMH of bilateral lung transplant in 2019 at [facility] with complicated course including difficulty weaning off the ventilator requiring tracheostomy, recurrent pneumonia and airway stenosis with stent in right bronchus intermedius, h/o pulmonary hypertension s/p transplant, paroxysmal atrial fibrillation, CKD III, history chronic nausea and vomiting with G-J tube in place (able to take PO since , it has not been used), and anemia presented to ED 07/12 due to ill feeling x3 days. 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 This is her second neupogen course after having lung transplant per Pt and she reports feeling similary ill after the first course of neupogen in the past as well leading upto the hospital admission. Pt reports feeling weak, wet cough not able to expectorate, feverish/sweaty/clammy 2 days ago, decreased appetite and fall today hitting her forhead over the bathtub/injury to her Lt forearm and reports he caught herself to slow fall. Pt denies chest pain or feeling of heart racing. Imagings reviewed, CXR w/ no acute findings; CT chest w/ bronchiectasis, bronchial wall thickening and diffuse lower lobe airspace opacities, & s/s s/o Pul HTN. CT Head w/ no acute findings. Labs reviewed, WBC low normal - left shift noted, Hb at baseline, Plt close to baseline. Renal fxns at baseline, Na decreased 127 likely d/t decreased appetite, Cl low. Magnesium low. Replace lytes, gentle hydration with NSS. Trop mildly elevated, trend trops. Respiratory panel negative, patient vaccinated against covid 3 times. Given her b/l lung transplant status and wheezing diffuse and b/l, will consult Pulm. C/w steroids and ATB. Multiple attempts made to reach her transplant center by Marielos. PT/OT for Fall. Trend Trops, EKG reviewed and NSR. Monitor Na every 6 hours, expect to improve with diet. Monitor and replete lytes. Finally got hold of Dr. Meng ([phone]), updated and discussed the case with her, continue with antibiotics/IV fluids/get tacrolimus and everolimus level. If any questions or concerns or worsening of her status and should the need for transfer arises, contact Dr. Meng will be on-call all week. Upon Exam GENERAL: Alert and oriented x3. NAD, on 2L NC O2. appears ill and weak. HEENT: No pallor, no icterus. Pupils equal, round and reactive to light. Oral mucosa moist. NECK: No JVD, no neck masses. HEART: S1 and S2 heard. Regular rate and rhythm. No murmur, no gallop. RESPIRATORY SYSTEM: Normal AP diameter. No accessory muscle use. Diffuse and b/l wheezing, + crackles. ABDOMEN: Soft, bowel sounds present, nontender, no distention. PEG tube in situ w/ normal looking port of entry. CENTRAL NERVOUS SYSTEM: No facial droop. Speech is clear. Obeys simple commands. Moves extremities. EXTREMITIES: No edema, no erythema seen. Left forearm has laceration 3-4 cm, lo oks not infected. I have seen and examined the patient and have discussed the case with the provider above. I agree with the assessment and plan as stated.
--- NOTE | 2021-07-12 14:07 | CT Scan Report ---
CT chest diagnostic wo con CLINICAL HISTORY: wheezing, rhonchi, hx of b/l leigha transplant TECHNIQUE: Multidetector row helical CT of the chest was performed. Coronal and sagittal reformations were obtained. Automated dose lowering techniques and/or adjustment according to patient size were u tilized for this exam. Comparison: Comparison is made to CT chest 05/07/2021 and CTA chest 02/09/2021 FINDINGS: Lungs and pleura: Redemonstration of bronchiectasis and patchy airspace opacities favoring the bilate ral lower lobes. Postsurgical changes of bilateral lung transplant are seen. Previously noted pleural effusions have resolved. Interval stability of right upper lobe pleural-based nodule measuring appro ximately 9 mm. Heart and pericardium: There is cardiomegaly without evidence of pericardial effusion. Vessels: The pulmonary trunk is enlarged measuring 39 mm. Mediastinum and vadim: Unremarkable. Chest wall and lower neck: Unremarkable. Abdomen: Unremarkable. Bones: Degenerative changes in the thoracic spine. IMPRESSION: 1. Redemonstration of bronchiectasis, bronchial wall thickening, and diffuse lower lobe predominant airspace opacities. Overall appearance is unchanged from multiple prior exams. Postsurgical changes o f bilateral lung transplant. 2. Interval resolution of previously noted pleural effusions. 3. Cardiomegaly and pulmonary hypertension. ACT 112: Negative or not required by law. Electronically signed by: Ganesh Sheldon M.D. 07/12/2021 2:06 PM
[2021-07-12 15:20] LABS: Appearance Urine Clear (Clear); Bacteria Urine Automated Negative (Negative); Bilirubin Urine Negative (Negative); Blood Urine 1+ (Negative); Color Urine Yellow; Glucose Urine UA Negative (Negative); Ketones Urine Trace (Negative); Leukocyte Esterase Urine Negative (Negative); Nitrite Urine Negative (Negative); Protein Urine 1+ (Negative); RBC Urine Automated 0-4 /hpf (0-4); Specific Gravity Urine 1.007 (1.000-1.030); Urobilinogen Urine Negative (Negative); WBC Urine Automated 0 /hpf (0-5)
[2021-07-12 16:44] LABS: BUN Creatinine Ratio 20.5 (10-20); Calcium 9.3 mg/dl (8.5-10.1); Creatinine Clr Calc Pharmacy 36.8 ml/min; Est GFR (African American) 49.6 ml/min; Est GFR (Non-African American) 42.8 ml/min; Potassium 3.9 mmol/L (3.5-5.1)
[2021-07-12] MEDS ORDERED: MAGNESIUM HYDROXIDE SUSP 30 ML UDC PO PRN (17:49)
[2021-07-12] MEDS ORDERED: SENNA 8.6 MG TAB PO PRN (17:49)
[2021-07-12] MEDS ORDERED: ALUMINUM/MAGNESIUM SUSP 30 ML UDC PO PRN (17:49)
[2021-07-12] MEDS ORDERED: ACETAMINOPHEN 325 MG TAB PO PRN (17:49)
[2021-07-12] MEDS ORDERED: POLYETHYLENE (MIRALAX) 17 GM PACK PO PRN (17:49)
[2021-07-12] MEDS: ALBUT/IPRATROP 3MG/0.5MG NEB 3 ML VIAL NEB SCH ×2 (19:24→19:25)
[2021-07-12 20:17] LABS: Troponin I 0.06 ng/ml (0-0.04)
[2021-07-12] MEDS: SODIUM CHLORIDE 0.9% 1000ML 1,000 ML IV SCH (20:28)
[2021-07-12] MEDS: guaiFENesin 600 MG TABCR PO SCH (20:40)
[2021-07-12] MEDS: METOPROLOL TARTRATE 50 MG TAB PO SCH (20:41)
[2021-07-12] MEDS: AMITRIPTYLINE HCL 50 MG TAB PO SCH (20:41)
[2021-07-12] MEDS: TACROLIMUS 0.5 MG CAP PO SCH (20:42)
[2021-07-12] MEDS: HEPARIN SOD 5,000 UNIT/0.5 ML VIAL SQ SCH (20:52)
[2021-07-13] MEDS: LORazepam 0.5 MG TAB SL SCH ×3 (01:19→20:41)
[2021-07-13] MEDS: NEOMYCIN/POLYMYX/BACITR OINT 15 GM TUBE EXT SCH ×3 (01:20→20:37)
[2021-07-13] MEDS: methylPREDNISolone 40 MG in SYRINGE 0 ML IV SCH ×3 (02:17→17:52)
[2021-07-13 05:01] LABS: Hematocrit (blood only) 31.1 % (37-47); Hemoglobin 10.1 g/dL (12.0-16.0); Mean Corpuscular Hemoglobin 30.3 pg (25-34); Mean Corpuscular Hgb Conc 32.5 g/dL (32-36); Mean Corpuscular Volume 93.4 fL (80-100); RDW Coefficient of Variation 15.7 % (11.5-14.5); RDW Standard Deviation 54.3 fL (36.4-46.3); Red Blood Count 3.33 M/uL (4.2-5.4); White Blood Count 1.73 K/uL (4.8-10.8)
[2021-07-13 05:40] LABS: Albumin Globulin Ratio 1.2 (0.9-2); Albumin Level 3.5 gm/dl (3.4-5.0); BUN Creatinine Ratio 22.2 (10-20); Bilirubin,Total 0.4 mg/dl (0.2-1.0); Calcium 9.2 mg/dl (8.5-10.1); Creatinine Clr Calc Pharmacy 36.8 ml/min; Est GFR (African American) 48.3 ml/min; Est GFR (Non-African American) 41.7 ml/min; Magnesium 3.1 mg/dl (1.7-2.4); Potassium 4.3 mmol/L (3.5-5.1); Total Protein 6.5 gm/dl (6.0-8.3)
[2021-07-13 06:23] LABS: Mean Platelet Volume 9.7 fL (7.4-10.4); Platelet Count 82 K/uL (130-400)
--- NOTE | 2021-07-13 06:27 | Electrocardiogram Report ---
Test Reason : Blood Pressure : / mmHG Vent. Rate : 085 BPM Atrial Rate : 085 BPM P-R Int : 128 ms QRS Dur : 076 ms QT Int : 396 ms P-R-T Axes : 064 050 093 degrees QTc Int : 471 ms Normal sinus rhythm Possible Left atrial enlargement Left ventricular hypertrophy with repolarization abnormality Abnormal ECG When compared with ECG of 18-MAY-2021 10:58, No significant change was found Confirmed by Darrel Arrington ([id number]) on 07/13/2021 6:27:21 AM Referred By: Confirmed By:Darrel Arrington
[2021-07-13 06:45] LABS: Dohle Bodies 1+; Immature Granulocytes # (auto) 0.05 K/uL (0.00-0.02); Immature Granulocytes % (auto) 2.9 %; Lymphocytes # (auto) 0.28 K/uL (1.2-3.4); Lymphocytes % (auto) 16.2 %; Monocytes # (auto) 0.13 K/uL (0.11-0.59); Monocytes % (auto) 7.5 %; Neutrophils # (auto) 1.27 K/uL (1.4-6.5); Neutrophils % (auto) 73.4 %; Platelet Estimate Decreased (Normal)
[2021-07-13] MEDS: ALBUT/IPRATROP 3MG/0.5MG NEB 3 ML VIAL NEB SCH ×4 (07:00→18:10)
[2021-07-13] MEDS: SODIUM CHLORIDE 0.9% 1000ML 1,000 ML IV SCH (10:33)
[2021-07-13] MEDS: azaTHIOprine 50 MG TAB PO SCH (10:34)
[2021-07-13] MEDS: CITALOPRAM 20 MG TAB PO SCH (10:35)
[2021-07-13] MEDS: FLUTICASONE/VILANTEROL 200/25MCG 14 PUFFS/INHALER INH SCH (10:35)
[2021-07-13] MEDS: MAGNESIUM OXIDE 400 MG TAB PO SCH (10:36)
[2021-07-13] MEDS: guaiFENesin 600 MG TABCR PO SCH ×2 (10:36→20:35)
[2021-07-13] MEDS: HEPARIN SOD 5,000 UNIT/0.5 ML VIAL SQ SCH ×2 (10:36→20:37)
[2021-07-13] MEDS: TACROLIMUS 0.5 MG CAP PO SCH ×2 (10:37→20:34)
[2021-07-13] MEDS: METOPROLOL TARTRATE 50 MG TAB PO SCH ×2 (10:37→20:36)
[2021-07-13] MEDS: PANTOprazole 40 MG TAB PO SCH (11:52)
[2021-07-13] MEDS: AZITHROMYCIN 250 MG TAB PO SCH (11:52)
[2021-07-13] MEDS: VALGANCICLOVIR HCL 450 MG TABLET PO SCH (11:52)
[2021-07-13] MEDS: TUBE FEEDING WATER FLUSH GT SCH (13:31)
--- NOTE | 2021-07-13 14:14 | Pulmonary Consultation ---
Date of Consultation July 13, 2021 Assessment & Plan (1) Chronic respiratory failure with hypoxia: (2) Lung transplant status, bilateral: (3) Bronchiectasis following lung transplantation: I do not suspect that the patient is having an acute episode of rejection related to her transplant or acute infection. I think that the patient can be placed back on her home dose of hydrocortisone and methylprednisolone can be discontinued. I would defer further treatment of her lung transplant to her transplant team. She is currently on her baseline oxygen requirements and has near baseline symptoms. I suspect that her symptoms on presentation were related to hyponatremia which appears to be resolving. I discussed the case with the patient's hospitalist over the phone. Acute for the consult. Pulmonary will sign off. Please call with questions. History of Present Illness Reason for Consultation: History of lung transplant Attending Physician: María Mcqueen MD History of Present Illness 61-year-old female with a past medical history status post double lung transplant 11/11/2019 who presents to the hospital due to nausea and vomiting over the past several days. She was started on Neupogen last week due to leukopenia. She noted she felt dizzy on hospital admission. She still continues to feel a bit dizzy but is improved. She notes chronic shortness of breath with productive sputum. She denies any hemoptysis. She uses 2 L of oxygen at baseline. 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 She also has a bronchial stent in her right bronchus intermedius. I reviewed the H&P notes and it was mentioned that she recently underwent pulsed dose of methylprednisone at [facility] for worsening rejection. CT chest completed this admission demonstrates bronchiectasis which appears relatively unchanged compared to her prior CT chest from May. She was found to be hyponatremic on hospital admission. Her sodium has improved from 127-132. Procalcitonin was negative on admission. Leukopenia and it was noted. She was started on methylprednisone 40 mg 3 times daily.. Allergies Allergy/AdvReac Type Severity Reaction Status Date / Time glimepiride AdvReac Severe Fainting Verified 07/12/21 12:30 Home Medications Medication Instructions Recorded Confirmed Type pantoprazole 40 mg tablet,delayed 40 mg PO DAILY@1200 01/24/20 07/12/21 History release (Protonix) valganciclovir 450 mg tablet 450 mg PO DAILY@1200 01/24/20 07/12/21 History (Valcyte) hydrocortisone 20 mg tablet 20 mg PO DAILY 09/08/20 07/12/21 History (Cortef) prochlorperazine maleate 10 mg 10 mg PO BID PRN 09/08/20 07/12/21 History tablet (Compazine) sulfamethoxazole 400 1 tab PO 2XWK 09/08/20 07/12/21 History mg-trimethoprim 80 mg tablet (Bactrim) Domperidone 20 mg PO QID 10/21/20 07/12/21 History amitriptyline 50 mg tablet 50 mg PO HS 02/09/21 07/12/21 History tacrolimus 1 mg capsule, 4.5 mg PO BID 02/09/21 07/12/21 History immediate-release acetaminophen 500 mg tablet 500 mg PO Q6 PRN 05/07/21 07/12/21 History albuterol sulfate 2.5 mg INHALATION Q4H PRN 05/07/21 07/12/21 History citalopram 10 mg tablet 10 mg PO QAM 05/07/21 07/12/21 History everolimus (immunosuppressive) 0.5 2 mg PO BID 05/07/21 07/12/21 History mg tablet fluticasone furoate 200 1 ea INHALATION QAM 05/07/21 07/12/21 History mcg-vilanterol 25 mcg/dose inhalation powder (Breo Ellipta) lorazepam 0.5 mg tablet 0.5 mg SUBLINGUAL BID 05/07/21 07/12/21 History metoprolol tartrate 50 mg tablet 50 mg PO BID 05/07/21 07/12/21 History sennosides 8.6 mg tablet (senna) 17.2 mg PO HS PRN 05/07/21 07/12/21 History azithromycin 250 mg tablet 250 mg PO DAILY@1200 05/18/21 07/12/21 History azathioprine 50 mg tablet 50 mg PO DAILY 07/12/21 07/12/21 History hydrocortisone 10 mg tablet 10 mg PO BID 07/12/21 07/12/21 History magnesium oxide 400 mg (241.3 mg 400 mg PO DAILY 07/12/21 07/12/21 History magnesium) tablet Patient History Medical History ASCUS of cervix with negative high risk HPV Bronchiectasis following lung transplantation Cholesteatoma of both middle ears Chronic mastoiditis Chronic obstructive pulmonary disease Chronic respiratory failure with hypoxia and hypercapnia Chronic tympanomastoiditis Encounter for mastoidectomy cavity debridement History of actinic keratosis Hypercholesterolemia LGSIL on Pap smear of cervix Osteoporosis Paroxysmal A-fib Postmenopausal Pulmonary emphysema Pulmonary hypertension Surgical History History of colposcopy History of ear surgery Hx of colonoscopy Hx of tonsillectomy Lung transplant status, bilateral 11/11/2019 [facility] S/P cardiac cath S/P dilation and curettage S/P wisdom tooth extraction Family History Mother Adenocarcinoma of lung Osteoporosis Rheumatoid arthritis Lung cancer Myocardial infarction Aunt Breast cancer maternal aunt Grandfather (Paternal) Colorectal cancer Father Lung cancer Denies family history of Ovarian cancer Social History (Updated 07/12/21 @ 13:46 by Marielos Kohli PA-C) Smoking Status: Former smoker Tobacco Type: Cigarettes Cigarettes Per Day: 1 ppd for 23 years; Second Hand Exposure: No; Hx Alcohol Use: No Hx Substance Use: No Preferred Language: Spanish Communication Ability: Effective Director Child Abuse Therapy Required: No Beliefs That Will Affect Care: None marital status: Current Living Situation: Spouse Other Information That Helps Us Care for You: No Feels Safe at Home: Yes Safety Concerns: Feels Safe At This Time Assistive Devices: Cane and Walker Review of Systems Review of Systems: All systems reviewed & are unremarkable except as noted in HPI & below Physical Exam Physical Exam: Constitutional: Frail appearing female laying in bed in mild distress. She is wearing nasal cannula. Eyes: Pupils are equal round and reactive to light. Conjunctivae are normal. Anicteric sclera. Ears nose, mouth and throat: No obvious deformities. Neck: Prior tracheal stoma noted. Respiratory: Diffuse wheezes and rhonchi. Prolonged phase of exhalation. Cardiovascular: Regular rate and rhythm. No murmurs. 1+ pitting edema b/l LE. Gastrointestinal: Normal bowel sounds, soft, nontender and nondistended. No hepatosplenomegaly noted. Musculoskeletal: No cyanosis. Patient is able to move all extremities. Skin: No rashes, warm dry and intact. Neurologic: No obvious focal neurological deficits seen. Psychiatric: Alert and oriented x3 with a euthymic affect. Results & Data Results & Data ([facility]) Vital Signs (Past 12 Hours) Vital Signs Temp Pulse Pulse Resp BP Pulse Ox 07/13/21 11:00 36.8 C 98 H 20 99/61 L 95 07/13/21 10:20 78 20 94 07/13/21 07:01 77 18 99 07/13/21 07:00 36.9 C 88 16 143/85 H 97 07/13/21 04:00 77 16 138/84 99 PG Care Time/CCT Total # of Minutes Spent Total Time Spent with Patient: Total time spent is greater than 50% in coordination of care (as documented) at patient's floor/unit and/or counseling patient: Coding Level of Care Code 61819 Inpt Consult Level 4 Diagnoses Chronic respiratory failure with hypoxia J96.11 Lung transplant status, bilateral Z94.2 Bronchiectasis following lung transplantation T86.812; J47.9
--- NOTE | 2021-07-13 18:35 | Hospitalist Progress Note ---
Date of Service July 13, 2021 Assessment & Plan (1) Lung transplant status, bilateral: (2) Acute hyponatremia: (3) Elevated troponin: (4) Chronic respiratory failure with hypoxia: Plan: Patient is a 61-year-old female with hx of bilateral lung transplant in 2019 at [facility] with complicated course including difficulty weaning off the ventilator requiring tracheostomy, recurrent pneumonia and airway stenosis with stent in right bronchus intermedius, h/o pulmonary hypertension no longer on medications, paroxysmal atrial fibrillation, CKD III, history chronic nausea and vomiting with G-J tube in place with tube feedings, anemia who presents to ED due to ill feeling x3 days. Significance recently hospitalized 06/26-06/28 at [facility] due to abnormal bronch. She underwent bronchoscopy earlier in the month, 06/16/21, and there was noted yellowish secretions and stenoses of the right upper lobe NBI that required laser and balloon dilatation. Path was suggestive of large airways under inflammation and scarring but BAL RVP and cultures came back nega tive. Treated with 3g pulse methylprednisolone and d/c to home. Weakness Cough S/P B/L lung transplant [facility] 2019, recent bronchoscopy 06/16/21 Chronic hypoxic respiratory failure Fall pt with increased resp sx including cough, sob and wheezing x 3 day biofire panel negative and also COVID-19 negative CXR: w/o abnormality CT Chest: Redemonstration of bronchiectasis, bronchial wall thickening, and diffuse lower lobe predominant airspace opacities. Overall appearance is unchanged from multiple prior exams. Postsurgical changes of bilateral lung transplant. Head CT: No acute intracerebral pathology. Mild cerebral cortical atrophy and remote small vessel disease are again seen. There is interval improvement of mild ethmoid sinusitis. There is again mucosal thickening of the right mastoid air cells. Aggressive pulm toilet with nebs, flutter valve, incentive spirometry, muccinex IV cefepime empirically Sputum culture, MRSA nasal screen, blood and urine cultures Continue tacrolimus, everolimus, azathioprine Continue chronic bactrim, azithromax, valganciclovir Continue breo Obtain tacrolimus level The admitting attending did discuss with Dr. Meng ([phone]), updated and discussed the case with her, continue with antibiotics/IV fluids/get tacrolimus and everolimus level. If any questions or concerns or worsening of her status and should the need for transfer arises, contact Dr. Meng will be on-call all week. Appreciate pulmonary input and recommendation We will continue current management and keep in touch with the transplant team tomorrow She has been improving Acute hyponatremia/hypochloremia Urine osm-pending, Serum osm-273,Random urine na-pending Gentle hydration, repeat labs this evening Sodium level has gone up to 132, BUN and creatinine unremarkable at 30/1.35 Hypomagnesemia replete-elevated now at 3.1 Elevated troponin ecg unchanged, no chest pain cycle trop-unremarkable for any ACS CKD-3 baseline cr 1.4-1.8 bun/cr stable avoid nephrotoxic agents Creatinine remains stable PAF continue metoprolol not on OAC Pancytopenia recently received Neupogen counts stable Dvt ppx: SQ Heparin BID Full Code Dispo: med tele PCP: Karel Admission and Anticipated Discharge Date Admission Date: July 12, 2021 Subjective 07/13/2021 The patient was seen and examined in emergency room in the [facility] area She is a status post lung transplant status and has had evaluation by the transplant team in June of this year She has been complaining of more shortness of breath, cough, feverish and generalized weakness for the last [address] chest did not show any significant change compared with prior and she was started with IV antibiotic, Solu-Medrol and nebulized bronchodilator Condition has been improving Review of Systems Review of Systems: All systems reviewed and are unremarkable except as noted below Respiratory: Mild shortness of breath at rest Physical Exam Physical Exam: Lying in bed with minimal shortness of breath at rest Constitutional: + ill appearing and + thin Neck: trachea midline, no thyromegaly Respiratory: + respiratory distress (Mild to moderate at rest); no labored breathing Auscultation: + diminished lung sounds, + crackles (Widespread crackles especially at the bases) and + wheezes (Minimal wheezing anteriorly) Cardiovascular: Rate/Rhythm: regular rate and regular rhythm; not tachycardic Heart Sounds: normal S1 and normal S2; no murmur Extremities: no edema Gastrointestinal (Abdomen): Inspection/Auscultation: normal bowel sounds; abdomen not distended Percussion/Palpation: abdomen soft; abdomen nontender Musculoskeletal: No acute arthritis in any joint Neurologic: Alert, awake and oriented x3. Generally weak but no focal sensory and motor deficit appreciated Results & Data Results & Data ([facility]) Vital Signs (Past 12 Hours) Vital Signs Temp Pulse Pulse Resp BP Pulse Ox 07/13/21 18:11 96 H 18 99 07/13/21 14:20 83 24 99 07/13/21 11:00 36.8 C 98 H 20 99/61 L 95 07/13/21 10:20 78 20 94 07/13/21 07:01 77 18 99 07/13/21 07:00 36.9 C 88 16 143/85 H 97 Laboratory Results Short CBC 07/13/21 Range/Units 04:46 WBC 1.73 L (4.8-10.8) K/uL Hgb 10.1 L (12.0-16.0) g/dL Hct 31.1 L (37-47) % Plt Count 82 L (130-400) K/uL BMP 07/13/21 04:46 Sodium 132 L Potassium 4.3 Chloride 95 L Carbon Dioxide 29 BUN 30 H Creatinine 1.35 H Glucose 152 H Calcium 9.2 Cardiac Enzymes 07/12/21 07/12/21 Range/Units 15:57 22:09 Troponin I 0.06 H* 0.06 H* (0-0.04) ng/ml Liver Function 07/13/21 Range/Units 04:46 Total Bilirubin 0.4 (0.2-1.0) mg/dl AST 23 (13-39) U/L ALT 13 (7-52) U/L Alkaline Phosphatase 83 (34-104) U/L Albumin 3.5 (3.4-5.0) gm/dl Medications Administered Current Inpatient Medications Acetaminophen (Acetaminophen 325 Mg Tab) 650 mg PO Q4H PRN PRN Reason: Pain or Fever Stop: 08/11/21 17:48 Al Hydrox/Mg Hydrox/Simethicone (Aluminum/Magnesium Susp 30 Ml Udc) 15 ml PO Q4H PRN PRN Reason: Dyspepsia Stop: 08/11/21 17:48 Albuterol (Albut/Ipratrop 3mg/0.5mg Neb 3 Ml Vial) 3 ml NEB QIDR [facility]CIE; Protocol Stop: 08/11/21 17:48 Last Admin: 07/13/21 18:10 Dose: 3 ml Documented by: Amitriptyline HCl (Amitriptyline Hcl 50 Mg Tab) 50 mg PO HS [facility] Stop: 08/11/21 20:59 Last Admin: 07/12/21 20:41 Dose: 50 mg Documented by: Azathioprine (Azathioprine 50 Mg Tab) 50 mg PO DAILY [facility] Stop: 08/12/21 08:59 Last Admin: 07/13/21 10:34 Dose: 50 mg Documented by: Azithromycin (Azithromycin 250 Mg Tab) 250 mg PO DAILY@1200 [facility] Stop: 08/12/21 11:59 Last Admin: 07/13/21 11:52 Dose: 250 mg Documented by: Citalopram Hydrobromide (Citalopram 20 Mg Tab) 10 mg PO QAM [facility] Stop: 08/12/21 08:59 Last Admin: 07/13/21 10:35 Dose: 10 mg Documented by: Everolimus (Everolimus 0.5 Mg Tab) 4 ea PO BID [facility] Stop: 08/12/21 20:59 Fluticasone/Vilanterol (Fluticasone/Vilanterol 200/25mcg 14 Puffs/Inhaler) 1 puffs INH QAM [facility] Stop: 08/12/21 08:59 Last Admin: 07/13/21 10:35 Dose: 1 puffs Documented by: Guaifenesin (Guaifenesin 600 Mg Tabcr) 600 mg PO Q12 [facility] Stop: 08/11/21 20:59 Last Admin: 07/13/21 10:36 Dose: 600 mg Documented by: Heparin Sodium (Porcine) (Heparin Sod 5,000 Unit/0.5 Ml Vial) 5,000 units SQ Q12 [facility] Stop: 08/11/21 20:59 Last Admin: 07/13/21 10:36 Dose: 5,000 units Documented by: Hydrocortisone (Hydrocortisone 10 Mg Tab) 10 mg PO BID@1200,2100 [facility] Stop: 08/11/21 20:59 Hydrocortisone (Hydrocortisone 10 Mg Tab) 20 mg PO DAILY [facility] Stop: 08/12/21 08:59 Sodium Chloride (Nss 1000ml) 1,000 mls @ 80 mls/hr IV .[id number] [facility] Stop: 07/13/21 18:48 Last Admin: 07/13/21 10:33 Dose: 80 mls/hr Documented by: Methylprednisolone 40 mg/ (Syringe) 0.64 mls @ 1.5 mls/min IV Q8H [facility] Stop: 08/12/21 01:59 Last Admin: 07/13/21 17:52 Dose: 1.5 mls/min Documented by: Lorazepam (Lorazepam 0.5 Mg Tab) 0.5 mg SL BID [facility] Stop: 08/11/21 20:59 Last Admin: 07/13/21 10:36 Dose: 0.5 mg Documented by: Magnesium Hydroxide (Magnesium Hydroxide Susp 30 Ml Udc) 30 ml PO Q12H PRN PRN Reason: Constipation Stop: 08/11/21 17:48 Magnesium Oxide (Magnesium Oxide 400 Mg Tab) 400 mg PO DAILY [facility] Stop: 08/12/21 08:59 Last Admin: 07/13/21 10:36 Dose: 400 mg Documented by: Metoprolol Tartrate (Metoprolol Tartrate 50 Mg Tab) 50 mg PO BID [facility] Stop: 08/11/21 20:59 Last Admin: 07/13/21 10:37 Dose: 50 mg Documented by: Miscellaneous (Domperidone 20 Mg ~ Order Awaiting Action) 1 ea N/A QS [facility] Stop: 08/12/21 00:00 Last Admin: 07/13/21 16:59 Dose: Not Given Documented by: Neomycin/Polymyxin/Bacitracin (Neomycin/Polymyx/Bacitr Oint 15 Gm Tube) 1 appln EXT BID [facility] Stop: 08/11/21 20:59 Last Admin: 07/13/21 10:37 Dose: 1 appln Documented by: Ondansetron HCl (Ondansetron Inj 2 Mg/Ml 2 Ml Vial) 4 mg IV Q6H PRN PRN Reason: Nausea Stop: 08/11/21 17:48 Pantoprazole Sodium (Pantoprazole 40 Mg Tab) 40 mg PO DAILY@1200 [facility] Stop: 08/12/21 11:59 Last Admin: 07/13/21 11:52 Dose: 40 mg Documented by: Polyethylene Glycol (Polyethylene (Miralax) 17 Gm Pack) 17 gm PO DAILY PRN PRN Reason: Constipation Stop: 08/11/21 17:48 Sennosides (Senna 8.6 Mg Tab) 17.2 mg PO HS PRN PRN Reason: Constipation Stop: 08/11/21 17:48 Sterile Water (Tube Feeding Water Flush) 30 ml GT DAILY [facility] Stop: 08/12/21 13:59 Last Admin: 07/13/21 13:31 Dose: Not Given Documented by: Tacrolimus (Tacrolimus 0.5 Mg Cap) 4.5 mg PO BID [facility] Stop: 08/11/21 20:59 Last Admin: 07/13/21 10:37 Dose: 4.5 mg Documented by: Trimethoprim/Sulfamethoxazole (Sulfa/Trimeth 400/80mg Tab) 1 tab PO MoTh@1200 [facility] Stop: 07/22/21 11:59 Valganciclovir (Valganciclovir Hcl 450 Mg Tablet) 450 mg PO DAILY@1200 [facility] Stop: 08/12/21 11:59 Last Admin: 07/13/21 11:52 Dose: 450 mg Documented by:
[2021-07-13] MEDS: AMITRIPTYLINE HCL 50 MG TAB PO SCH (20:35)
[2021-07-13] MEDS: EVEROLIMUS 0.5 MG PO SCH (20:36)
[2021-07-14] MEDS: methylPREDNISolone 40 MG in SYRINGE 0 ML IV SCH ×3 (02:06→18:17)
[2021-07-14 06:17] LABS: Hematocrit (blood only) 25.4 % (37-47); Hemoglobin 8.1 g/dL (12.0-16.0); Mean Corpuscular Hemoglobin 29.9 pg (25-34); Mean Corpuscular Hgb Conc 31.9 g/dL (32-36); Mean Corpuscular Volume 93.7 fL (80-100); RDW Standard Deviation 54.9 fL (36.4-46.3); Red Blood Count 2.71 M/uL (4.2-5.4); White Blood Count 2.39 K/uL (4.8-10.8)
[2021-07-14 06:22] LABS: Mean Platelet Volume 10.2 fL (7.4-10.4); Platelet Count 79 K/uL (130-400)
[2021-07-14 06:39] LABS: Albumin Globulin Ratio 1.3 (0.9-2); BUN Creatinine Ratio 30.5 (10-20); Bilirubin,Total 0.3 mg/dl (0.2-1.0); Calcium 8.5 mg/dl (8.5-10.1); Creatinine Clr Calc Pharmacy 35.3 ml/min; Est GFR (African American) 45.8 ml/min; Est GFR (Non-African American) 39.5 ml/min; Globulin 2.4 gm/dl (2.5-4.0); Magnesium 2.6 mg/dl (1.7-2.4); Phosphorus 4.4 mg/dl (2.5-4.9); Potassium 4.9 mmol/L (3.5-5.1); Total Protein 5.4 gm/dl (6.0-8.3)
[2021-07-14 06:50] LABS: ALC (manual) 0.08 K/uL (1.2-3.4); ANC (manual) 1.99 K/uL (1.4-6.5); Dohle Bodies 1+; Lymphocytes # (manual) 0.08 K/uL (1.2-3.4); Lymphocytes % (manual) 3.5 %; Monocytes # (manual) 0.29 K/uL (0.11-0.59); Monocytes % (manual) 12.3 %; Myelocytes # (manual) 0.02 K/uL (0-0); Myelocytes % (manual) 0.9 %; Neutrophils # (manual) 1.99 K/uL (1.4-6.5); Neutrophils % (manual) 83.3 %
[2021-07-14] MEDS: ALBUT/IPRATROP 3MG/0.5MG NEB 3 ML VIAL NEB SCH ×4 (07:08→20:57)
[2021-07-14] MEDS: FLUTICASONE/VILANTEROL 200/25MCG 14 PUFFS/INHALER INH SCH (08:17)
[2021-07-14] MEDS: TACROLIMUS 0.5 MG CAP PO SCH ×2 (08:18→21:41)
[2021-07-14] MEDS: azaTHIOprine 50 MG TAB PO SCH (08:21)
[2021-07-14] MEDS: NEOMYCIN/POLYMYX/BACITR OINT 15 GM TUBE EXT SCH ×2 (08:21→21:40)
[2021-07-14] MEDS: CITALOPRAM 20 MG TAB PO SCH (08:21)
[2021-07-14] MEDS: guaiFENesin 600 MG TABCR PO SCH ×2 (08:22→21:45)
[2021-07-14] MEDS: HEPARIN SOD 5,000 UNIT/0.5 ML VIAL SQ SCH ×2 (08:23→21:48)
[2021-07-14] MEDS: METOPROLOL TARTRATE 50 MG TAB PO SCH ×2 (08:24→21:44)
[2021-07-14] MEDS: EVEROLIMUS 0.5 MG PO SCH ×2 (08:25→21:47)
[2021-07-14] MEDS: MAGNESIUM OXIDE 400 MG TAB PO SCH (08:29)
[2021-07-14] MEDS: LORazepam 0.5 MG TAB SL SCH ×2 (08:29→21:47)
[2021-07-14] MEDS: TUBE FEEDING WATER FLUSH GT SCH (08:31)
[2021-07-14] MEDS: VALGANCICLOVIR HCL 450 MG TABLET PO SCH (12:10)
[2021-07-14] MEDS: PANTOprazole 40 MG TAB PO SCH (12:10)
[2021-07-14] MEDS: AZITHROMYCIN 250 MG TAB PO SCH (12:12)
--- NOTE | 2021-07-14 18:12 | Hospitalist Progress Note ---
Date of Service July 14, 2021 Assessment & Plan (1) Lung transplant status, bilateral: (2) Acute hyponatremia: (3) Elevated troponin: (4) Chronic respiratory failure with hypoxia: Plan: Patient is a 61-year-old female with hx of bilateral lung transplant in 2019 at [facility] with complicated course including difficulty weaning off the ventilator requiring tracheostomy, recurrent pneumonia and airway stenosis with stent in right bronchus intermedius, h/o pulmonary hypertension no longer on medications, paroxysmal atrial fibrillation, CKD III, history chronic nausea and vomiting with G-J tube in place with tube feedings, anemia who presents to ED due to ill feeling x3 days. Significance recently hospitalized 06/26-06/28 at [facility] due to abnormal bronch. She underwent bronchoscopy earlier in the month, 06/16/21, and there was noted yellowish secretions and stenoses of the right upper lobe NBI that required laser and balloon dilatation. Path was suggestive of large airways under inflammation and scarring but BAL RVP and cultures came back nega tive. Treated with 3g pulse methylprednisolone and d/c to home. Weakness Cough S/P B/L lung transplant [facility] 2019, recent bronchoscopy 06/16/21 Chronic hypoxic respiratory failure Fall pt with increased resp sx including cough, sob and wheezing x 3 day biofire panel negative and also COVID-19 negative CXR: w/o abnormality CT Chest: Redemonstration of bronchiectasis, bronchial wall thickening, and diffuse lower lobe predominant airspace opacities. Overall appearance is unchanged from multiple prior exams. Postsurgical changes of bilateral lung transplant. Head CT: No acute intracerebral pathology. Mild cerebral cortical atrophy and remote small vessel disease are again seen. There is interval improvement of mild ethmoid sinusitis. There is again mucosal thickening of the right mastoid air cells. Aggressive pulm toilet with nebs, flutter valve, incentive spirometry, muccinex IV cefepime empirically Sputum culture, MRSA nasal screen, blood and urine cultures Continue tacrolimus, everolimus, azathioprine Continue chronic bactrim, azithromax, valganciclovir Continue breo Obtain tacrolimus level The admitting attending did discuss with Dr. Meng ([phone]), updated and discussed the case with her, continue with antibiotics/IV fluids/get tacrolimus and everolimus level. If any questions or concerns or worsening of her status and should the need for transfer arises, contact Dr. Meng will be on-call all week. Appreciate pulmonary input and recommendation We will continue current management and keep in touch with the transplant team tomorrow She has been improving Acute hyponatremia/hypochloremia Urine osm-pending, Serum osm-273,Random urine na-pending Gentle hydration, repeat labs this evening Sodium level has gone up to 132, BUN and creatinine unremarkable at 30/1.35 Hypomagnesemia replete-elevated now at 3.1 Elevated troponin ecg unchanged, no chest pain cycle trop-unremarkable for any ACS CKD-3 baseline cr 1.4-1.8 bun/cr stable avoid nephrotoxic agents Creatinine remains stable PAF continue metoprolol not on OAC Pancytopenia recently received Neupogen counts stable Dvt ppx: SQ Heparin BID Full Code Dispo: med tele PCP: Karel Admission and Anticipated Discharge Date Admission Date: July 12, 2021 Subjective Patient was seen and examined for follow-up of shortness of breath Lying in bed with no acute acute respiratory distress Patient said that her breathing feels a lot better compared to when she came She said she continues to have a hard time to bring the phlegm up Denies any chest pain, palpitation, dizziness and fever Review of Systems Review of Systems: All systems reviewed & are unremarkable except as noted in Subjective Physical Exam Physical Exam: General- No acute distress Head- atraumatic Eyes- PERRL, EOMI, ENT- oropharynx clear Neck- supple, no JVD Lungs- +wheezing Heart- regular rhythm; no murmur Abdomen- normal bowel sounds, soft, nontender Extremities- no calf tenderness Neuro- alert, oriented x 3; PERRL, EOMI; no facial palsy; no dysarthria Skin- warm & dry Results & Data Results & Data ([facility]) Vital Signs (Past 12 Hours) Vital Signs Temp Pulse Resp BP Pulse Ox 07/14/21 16:32 96 07/14/21 15:50 96 H 22 101/67 96 07/14/21 15:01 88 23 99 07/14/21 12:14 36.6 C 92 H 24 129/75 94 07/14/21 11:49 83 20 100 07/14/21 08:44 36.8 C 106 H 18 118/67 99 07/14/21 07:08 77 21 100
[2021-07-14] MEDS: AMITRIPTYLINE HCL 50 MG TAB PO SCH (21:46)
--- NOTE | 2021-07-14 21:59 | Electrocardiogram Report ---
Test Reason : Blood Pressure : / mmHG Vent. Rate : 083 BPM Atrial Rate : 083 BPM P-R Int : 136 ms QRS Dur : 078 ms QT Int : 414 ms P-R-T Axes : 033 043 212 degrees QTc Int : 486 ms Normal sinus rhythm Possible Left atrial enlargement Left ventricular hypertrophy T wave abnormality, consider inferior ischemia T wave abnormality, consider lateral ischemia Prolonged QT Abnormal ECG When compared with ECG of 12-JUL-2021 10:16, Non-specific change in ST segment in Inferior leads T wave inversion now evident in Inferior leads Confirmed by Darrel Arrington ([id number]) on 07/14/2021 9:59:19 PM Referred By: REFERRED SELF Confirmed By:Darrel Arrington
--- NOTE | 2021-07-14 22:36 | Communication Note ---
Date of Service: July 14, 2021 Notified by pharmacist that patient home Domperidone preparation cannot be administered inpatient as per hospital protocol.
[2021-07-15] MEDS: methylPREDNISolone 40 MG in SYRINGE 0 ML IV SCH ×3 (01:45→18:46)
[2021-07-15] MEDS: ALBUT/IPRATROP 3MG/0.5MG NEB 3 ML VIAL NEB SCH ×4 (07:24→19:23)
[2021-07-15] MEDS: azaTHIOprine 50 MG TAB PO SCH (09:12)
[2021-07-15] MEDS: CITALOPRAM 20 MG TAB PO SCH (09:12)
[2021-07-15] MEDS: HEPARIN SOD 5,000 UNIT/0.5 ML VIAL SQ SCH ×2 (09:13→20:48)
[2021-07-15] MEDS: TACROLIMUS 0.5 MG CAP PO SCH ×2 (09:14→20:51)
[2021-07-15] MEDS: METOPROLOL TARTRATE 50 MG TAB PO SCH ×2 (09:14→20:50)
[2021-07-15] MEDS: EVEROLIMUS 0.5 MG PO SCH ×2 (09:14→20:52)
[2021-07-15] MEDS: guaiFENesin 600 MG TABCR PO SCH ×2 (09:15→20:50)
[2021-07-15] MEDS: FLUTICASONE/VILANTEROL 200/25MCG 14 PUFFS/INHALER INH SCH (09:15)
[2021-07-15] MEDS: NEOMYCIN/POLYMYX/BACITR OINT 15 GM TUBE EXT SCH ×2 (09:33→20:52)
[2021-07-15] MEDS: MAGNESIUM OXIDE 400 MG TAB PO SCH (09:33)
[2021-07-15] MEDS: LORazepam 0.5 MG TAB SL SCH ×2 (09:33→20:47)
[2021-07-15 12:44] LABS: Hematocrit (blood only) 26.5 % (37-47); Hemoglobin 8.3 g/dL (12.0-16.0); Mean Corpuscular Hemoglobin 29.9 pg (25-34); Mean Corpuscular Hgb Conc 31.3 g/dL (32-36); Mean Corpuscular Volume 95.3 fL (80-100); Mean Platelet Volume 10.1 fL (7.4-10.4); Platelet Count 128 K/uL (130-400); RDW Coefficient of Variation 16.1 % (11.5-14.5); RDW Standard Deviation 55.7 fL (36.4-46.3); Red Blood Count 2.78 M/uL (4.2-5.4); White Blood Count 4.42 K/uL (4.8-10.8)
[2021-07-15 13:08] LABS: BUN Creatinine Ratio 32.9 (10-20); Calcium 9.6 mg/dl (8.5-10.1); Creatinine Clr Calc Pharmacy 28.7 ml/min; Est GFR (African American) 35.8 ml/min; Est GFR (Non-African American) 30.9 ml/min; Potassium 5.3 mmol/L (3.5-5.1)
[2021-07-15] MEDS: AZITHROMYCIN 250 MG TAB PO SCH (13:08)
[2021-07-15] MEDS: SULFA/TRIMETH 400/80MG TAB PO SCH (13:08)
[2021-07-15] MEDS: VALGANCICLOVIR HCL 450 MG TABLET PO SCH (13:08)
[2021-07-15] MEDS: PANTOprazole 40 MG TAB PO SCH (13:08)
[2021-07-15] MEDS: TUBE FEEDING WATER FLUSH GT SCH (18:38)
[2021-07-15] MEDS: AMITRIPTYLINE HCL 50 MG TAB PO SCH (20:50)
--- NOTE | 2021-07-15 23:51 | Hospitalist Progress Note ---
Date of Service July 15, 2021 Assessment & Plan (1) Lung transplant status, bilateral: (2) Acute hyponatremia: (3) Elevated troponin: (4) Chronic respiratory failure with hypoxia: Plan: Patient is a 61-year-old female with hx of bilateral lung transplant in 2019 at [facility] with complicated course including difficulty weaning off the ventilator requiring tracheostomy, recurrent pneumonia and airway stenosis with stent in right bronchus intermedius, h/o pulmonary hypertension no longer on medications, paroxysmal atrial fibrillation, CKD III, history chronic nausea and vomiting with G-J tube in place with tube feedings, anemia who presents to ED due to ill feeling x3 days. Significance recently hospitalized 06/26-06/28 at [facility] due to abnormal bronch. She underwent bronchoscopy earlier in the month, 06/16/21, and there was noted yellowish secretions and stenoses of the right upper lobe NBI that required laser and balloon dilatation. Path was suggestive of large airways under inflammation and scarring but BAL RVP and cultures came back neg ative. Treated with 3g pulse methylprednisolone and d/c to home. Weakness Cough S/P B/L lung transplant [facility] 2019, recent bronchoscopy 06/16/21 Chronic hypoxic respiratory failure Fall pt with increased resp sx including cough, sob and wheezing x 3 day biofire panel negative and also COVID-19 negative CXR: w/o abnormality CT Chest: Redemonstration of bronchiectasis, bronchial wall thickening, and diffuse lower lobe predominant airspace opacities. Overall appearance is unchanged from multiple prior exams. Postsurgical changes of bilateral lung transplant. Head CT: No acute intracerebral pathology. Mild cerebral cortical atrophy and remote small vessel disease are again seen. There is interval improvement of mild ethmoid sinusitis. There is again mucosal thickening of the right mastoid air cells. Aggressive pulm toilet with nebs, flutter valve, incentive spirometry, muccinex Sputum culture, MRSA nasal screen, blood and urine cultures IV Cefepime was discontinued Continue tacrolimus, everolimus, azathioprine Continue chronic bactrim, azithromax, valganciclovir Continue breo Obtain tacrolimus level The admitting attending did discuss with Dr. Meng ([phone]), updated and discussed the case with her, continue with antibiotics/IV fluids/get tacrolimus and everolimus level. If any questions or concerns or worsening of her status and should the need for transfer arises, contact Dr. Meng will be on-call all week. Will plan to transition to hydrocortisone tomorrow Acute hyponatremia/hypochloremia Sodium on admission 127 Sodium 131 today Continue monitor BMP Hypomagnesemia Mg 2.6 yesterday on 07/14 Elevated troponin Troponin on admission 0.08 then dropped to 0.06 EKG showed no acute ischemic changes Denies any chest pain CKD-3 Creatinine 1.7 today, baseline cr 1.4-1.8 bun/cr stable avoid nephrotoxic agents Continue monitor BMP PAF continue metoprolol not on OAC Pancytopenia WBC and platelet count improved counts stable Dvt ppx: SQ Heparin BID Full Code Dispo: med tele PCP: Karel Admission and Anticipated Discharge Date Admission Date: July 12, 2021 Subjective Patient was seen and examined for follow-up of shortness of breath Sitting in chair with no acute acute respiratory distress Patient said that her breathing feels a lot better compared to when she came She said she continues to have a hard time to bring the phlegm up Denies any chest pain, palpitation, dizziness and fever Review of Systems Review of Systems: All systems reviewed & are unremarkable except as noted in Subjective Physical Exam Physical Exam: General- No acute distress Head- atraumatic Eyes- PERRL, EOMI, ENT- oropharynx clear Neck- supple, no JVD Lungs- +wheezing Heart- regular rhythm; no murmur Abdomen- normal bowel sounds, soft, nontender Extremities- no calf tenderness Neuro- alert, oriented x 3; PERRL, EOMI; no facial palsy; no dysarthria Skin- warm & dry Results & Data Results & Data ([facility]) Vital Signs (Past 12 Hours) Vital Signs Temp Pulse Resp BP BP Pulse Ox 07/15/21 19:26 80 21 99 07/15/21 19:10 36.7 C 84 24 137/82 99 07/15/21 15:00 80 18 124/76 99 07/15/21 12:57 36.5 C 86 23 132/71 98
[2021-07-16] MEDS: methylPREDNISolone 40 MG in SYRINGE 0 ML IV SCH ×3 (01:00→19:09)
[2021-07-16 06:56] LABS: Hematocrit (blood only) 24.9 % (37-47); Mean Corpuscular Hemoglobin 30.5 pg (25-34); Mean Corpuscular Hgb Conc 32.1 g/dL (32-36); RDW Coefficient of Variation 16.1 % (11.5-14.5); RDW Standard Deviation 55.8 fL (36.4-46.3); Red Blood Count 2.62 M/uL (4.2-5.4); White Blood Count 3.68 K/uL (4.8-10.8)
[2021-07-16] MEDS: ALBUT/IPRATROP 3MG/0.5MG NEB 3 ML VIAL NEB SCH ×4 (07:02→19:23)
[2021-07-16 07:14] LABS: Mean Platelet Volume 9.6 fL (7.4-10.4); Platelet Count 95 K/uL (130-400)
[2021-07-16 07:53] LABS: BUN Creatinine Ratio 36.6 (10-20); Calcium 9.4 mg/dl (8.5-10.1); Creatinine Clr Calc Pharmacy 23.3 ml/min; Est GFR (African American) 27.8 ml/min; Potassium 6.2 mmol/L (3.5-5.1)
[2021-07-16] MEDS ORDERED: SODIUM BICARB 8.4% INJ 50 MEQ/50 ML SYR IV STA (09:29)
[2021-07-16] MEDS ORDERED: STAT IV STA ×2 (09:29→10:24)
[2021-07-16] MEDS: TACROLIMUS 0.5 MG CAP PO SCH ×2 (09:30→20:42)
[2021-07-16] MEDS: guaiFENesin 600 MG TABCR PO SCH ×2 (09:31→20:38)
[2021-07-16] MEDS ORDERED: FUROSEMIDE 40 MG/4 ML VIAL IV ONE (09:31)
[2021-07-16] MEDS: azaTHIOprine 50 MG TAB PO SCH (09:32)
[2021-07-16] MEDS: METOPROLOL TARTRATE 50 MG TAB PO SCH ×2 (09:32→20:38)
[2021-07-16] MEDS: CITALOPRAM 20 MG TAB PO SCH (09:33)
[2021-07-16] MEDS: FLUTICASONE/VILANTEROL 200/25MCG 14 PUFFS/INHALER INH SCH (09:33)
[2021-07-16] MEDS: EVEROLIMUS 0.5 MG PO SCH ×2 (09:34→20:39)
[2021-07-16] MEDS: TUBE FEEDING WATER FLUSH GT SCH (09:35)
[2021-07-16] MEDS: NEOMYCIN/POLYMYX/BACITR OINT 15 GM TUBE EXT SCH ×2 (09:35→20:44)
[2021-07-16] MEDS: LORazepam 0.5 MG TAB SL SCH ×2 (09:39→20:38)
[2021-07-16] MEDS: HEPARIN SOD 5,000 UNIT/0.5 ML VIAL SQ SCH ×2 (09:44→20:43)
[2021-07-16] MEDS: MAGNESIUM OXIDE 400 MG TAB PO SCH (09:48)
[2021-07-16] MEDS: SODIUM BICARBONATE 8.4% 150 MEQ in DEXTROSE 5% 1,000 ML IV SCH ×2 (10:04→22:06)
[2021-07-16] MEDS ORDERED: DEXTROSE 50% 50 ML SYRINGE IV STA (10:24)
[2021-07-16] MEDS ORDERED: CALCIUM GLUCONATE 10% 1,000 MG in DEXTROSE 5% 50 ML IV STA (10:31)
[2021-07-16] MEDS ORDERED: INSULIN HUMAN REGULAR PER UNIT 10 UNITS in SYRINGE 9.9 ML IV STA (10:32)
[2021-07-16] MEDS: VALGANCICLOVIR HCL 450 MG TABLET PO SCH (12:59)
[2021-07-16] MEDS: AZITHROMYCIN 250 MG TAB PO SCH (12:59)
[2021-07-16] MEDS: PANTOprazole 40 MG TAB PO SCH (12:59)
--- NOTE | 2021-07-16 15:19 | Consultation Report ---
NEPHROLOGY CONSULTATION NOTE DATE OF SERVICE: 07/16/2021. REASON FOR CONSULTATION: Acute renal failure. HISTORY OF PRESENT ILLNESS: The patient is a 61-year-old female with bilateral lung transplant in 2019 at [facility] with complicated course including difficulty weaning off the ventilator, tracheostomy, recurrent pneumonia and airway stenosis. She also has chronic kidney disease stage III at baseline with the most recent baseline creatinine of around 1.5. She presented to the hospital ____ days ago, and for the first few days, her kidney function was at baseline, but it has been going up in the last 2 days and today is up to 2.13. Potassium was also high this morning and sodium was low. She has chronic shortness of breath and cough. She has already been seen by pulmonary and she is getting steroid as well as antibiotics at this time. As for the transplant, she is on everolimus and tacrolimus, which she is getting. She has had multiple hospitalizations in the recent past including recent discharge on 05/21. Her blood pressure is reasonable. Her oxygen requirement is not much higher than her baseline. I do not know for sure how much urine she is actually making as it is not being measured in the Emergency Department. ALLERGIES: glimepiride. MEDICATIONS: Home medication list was reviewed on the H and P and medicine reconciliation list. PAST MEDICAL AND SURGICAL HISTORY: Includes lung transplant bilateral in 11/2019 at [facility] for chronic respiratory failure, pulmonary emphysema and hypertension. She also has paroxysmal AFib, tonsillectomy, colonoscopy, chronic mastoiditis, chronic obstructive pulmonary disease, chronic respiratory failure with hypoxia and hypercapnia, bronchiectasis following lung transplantation. FAMILY HISTORY: Negative for renal disease or dialysis. SOCIAL HISTORY: Former smoker, 1 packet, for 23 years. She is and lives with her spouse, uses a walker. REVIEW OF SYSTEMS: Hard to obtain as the patient seems quite weak and debilitated. As per the H and P, she had nausea, poor appetite, vomiting for a few days prior to hospitalization and slightly more shortness of breath than as usual. PHYSICAL EXAMINATION: GENERAL: A middle-aged white female, who appears chronically ill. She is awake and alert, oriented, but very slow in answering questions. VITAL SIGNS: Blood pressure is 125/71, pulse rate 80, temperature 36.6, and 92% on 2 liter nasal cannula. HEENT: Mucous membrane is moist. NECK: Supple. CHEST: Bilateral rhonchi and crackles. CARDIOVASCULAR: S1 and S2 regular. Systolic murmur heard. ABDOMEN: Soft, nontender. EXTREMITIES: Show no edema. LABORATORY TEST: At the time of admission, her serum sodium was 127. Since then, it has improved to 131. Potassium has gone up to 6.2 this morning, BUN is 78, creatinine is 2.13, magnesium 2.6. Urine on admission showed 1+ blood and 1+ protein. Blood culture negative. CT scan of the chest shows same as previous findings. She also has cardiomegaly and some pulmonary hypertension. Chest x-ray did not show any acute pulmonary disease. ASSESSMENT AND PLAN: A 61-year-old female with complicated medical history including severe end-stage lung disease, status post bilateral lung transplant in 2020. Now admitted with multitude of symptoms including nausea, vomiting, poor appetite. I have been consulted for acute renal failure and hyponatremia and hyperkalemia management. 1. Acute renal failure. 2. Hyponatremia. 3. Hyperkalemia. The patient has a complicated medical history, but at baseline, her creatinine is around 1.4 range, but she does have frequent acute renal failure given multiple admissions. At the time of admission, she was at baseline kidney function, but since then, her creatinine has gone up and is up to 2.1 today with high potassium. The immediate concern is to manage her hyperkalemia, and to do that, we will do dextrose, insulin, sodium bicarbonate bolus as well as a bicarbonate drip at 100 mL per hour. Also give one dose of Lasix to get the potassium down. We will also add patiromer daily. Repeat BMP again later today to see the hyperkalemia improvement. If the kidney function continues to get worse, I would consider transfer to [facility] for a more comprehensive management. Recommend to do a renal ultrasound today to rule out hydronephrosis. Avoid nephrotoxic agents. Her current medication list seems appropriate and I do not see any medications which is well known to cause hyperkalemia. Continue the tacrolimus and everolimus. Bactrim can be associated with slight hyperkalemia, but she has always been on this drug without much problem. Thank you very much for the consult. Case was discussed in detail with Dr. Bar, hospitalist. Job ID: [id number] [facility]
[2021-07-16] MEDS: PATIROMER CALCIUM SORBITEX 8.4 GM PACK PO SCH (15:53)
[2021-07-16 16:35] LABS: Albumin Level 3.3 gm/dl (3.4-5.0); BUN Creatinine Ratio 33.3 (10-20); Calcium 9.5 mg/dl (8.5-10.1); Creatinine Clr Calc Pharmacy 29.1 ml/min; Est GFR (African American) 36.3 ml/min; Est GFR (Non-African American) 31.3 ml/min; Phosphorus 3.9 mg/dl (2.5-4.9); Potassium 5.5 mmol/L (3.5-5.1)
--- NOTE | 2021-07-16 17:00 | Ultrasound Report ---
US renal/blad retro comp CLINICAL HISTORY: ARF TECHNIQUE: Multiple sonographic real-time images of the kidneys and bladder were obtained. COMPARISON: None available at the time of this dictation. FINDINGS: The right kidney measures 11.7 cm in length, and the left kidney measures 9.9 cm in length. The right kidney is normal in size, contour, cortical thickness, and echogenicity. No hydronephrosis is identified. There is a cystic lesion seen in the right lower pole measuring 0.8 x 0.8 x 0.9 cm. No perinephric fluid collection is seen. The left kidney is normal in size, contour, cortical thickness and echogenicity. No hydronephrosis i s identified. No renal lesion is identified. No perinephric fluid collection is seen. The bladder is partially distended. No large intraluminal mass is seen. Incidental note is made of mi nimal splenomegaly with a length of 12.9 cm. IMPRESSION: Unremarkable renal ultrasound. No evidence of hydronephrosis. ACT 112: Negative or not required by law. Electronically signed by: Ganesh Sheldon M.D. 07/16/2021 4:59 PM
[2021-07-16 20:12] LABS: BUN Creatinine Ratio 38.3 (10-20); Calcium 9.3 mg/dl (8.5-10.1); Creatinine Clr Calc Pharmacy 24.7 ml/min; Est GFR (African American) 29.9 ml/min; Est GFR (Non-African American) 25.8 ml/min; Potassium 4.8 mmol/L (3.5-5.1)
[2021-07-16] MEDS: AMITRIPTYLINE HCL 50 MG TAB PO SCH (20:39)
[2021-07-16] MEDS: TACROLIMUS 1 MG CAP PO SCH (20:41)
--- NOTE | 2021-07-16 23:55 | Hospitalist Progress Note ---
Date of Service July 16, 2021 Assessment & Plan (1) Lung transplant status, bilateral: (2) Acute hyponatremia: (3) Elevated troponin: (4) Chronic respiratory failure with hypoxia: Plan: Patient is a 61-year-old female with hx of bilateral lung transplant in 2019 at [facility] with complicated course including difficulty weaning off the ventilator requiring tracheostomy, recurrent pneumonia and airway stenosis with stent in right bronchus intermedius, h/o pulmonary hypertension no longer on medications, paroxysmal atrial fibrillation, CKD III, history chronic nausea and vomiting with G-J tube in place with tube feedings, anemia who presents to ED due to ill feeling x3 days. Significance recently hospitalized 06/26-06/28 at [facility] due to abnormal bronch. She underwent bronchoscopy earlier in the month, 06/16/21, and there was noted yellowish secretions and stenoses of the right upper lobe NBI that required laser and balloon dilatation. Path was suggestive of large airways under inflammation and scarring but BAL RVP and cultures came back neg ative. Treated with 3g pulse methylprednisolone and d/c to home. Weakness Cough S/P B/L lung transplant [facility] 2019, recent bronchoscopy 06/16/21 Chronic hypoxic respiratory failure Fall pt with increased resp sx including cough, sob and wheezing x 3 day biofire panel negative and also COVID-19 negative CXR: w/o abnormality CT Chest: Redemonstration of bronchiectasis, bronchial wall thickening, and diffuse lower lobe predominant airspace opacities. Overall appearance is unchanged from multiple prior exams. Postsurgical changes of bilateral lung transplant. Head CT: No acute intracerebral pathology. Mild cerebral cortical atrophy and remote small vessel disease are again seen. There is interval improvement of mild ethmoid sinusitis. There is again mucosal thickening of the right mastoid air cells. Aggressive pulm toilet with nebs, flutter valve, incentive spirometry, muccinex Sputum culture, MRSA nasal screen, blood and urine cultures IV Cefepime was discontinued Continue tacrolimus, everolimus, azathioprine Continue chronic bactrim, azithromax, valganciclovir Continue breo Obtain tacrolimus level The admitting attending did discuss with Dr. Meng ([phone]), updated and discussed the case with her, continue with antibiotics/IV fluids/get tacrolimus and everolimus level. If any questions or concerns or worsening of her status and should the need for transfer arises, contact Dr. Meng will be on-call all week. Will plan to transition to hydrocortisone tomorrow Acute hyponatremia/hypochloremia Sodium on admission 127 Sodium 133 today Continue monitor BMP Hypomagnesemia Mg 2.6 yesterday on 07/14 Elevated troponin Troponin on admission 0.08 then dropped to 0.06 EKG showed no acute ischemic changes Denies any chest pain ROYER on CKD-3 Creatinine 2.1 today, baseline cr 1.4-1.8 Renal u/s showed no evidence of hydronephrosis. Nephrology consulted Case discussed with nephrology recommended if potassium worsening to transfer to a tertiary care due to hx of lung transplant avoid nephrotoxic agents Continue monitor BMP Hyperkalemia Potassium this morning 6.2 Received calcium, dextrose sodium bicarb bolus and insulin Nephrology on board Started on Patiromer daily and sodium bicarb drip Repeat potassium this afternoon was 4.8 Continue monitor BMP PAF continue metoprolol not on OAC Pancytopenia WBC and platelet count improved Continue monitor Dvt ppx: SQ Heparin BID Full Code Dispo: med tele PCP: Karel Admission and Anticipated Discharge Date Admission Date: July 12, 2021 Subjective Patient was seen and examined for follow-up of shortness of breath Lying in bed with no acute acute respiratory distress She said her breathing feels a little bit better today Denies any chest pain, palpitation, dizziness and fever Review of Systems Review of Systems: All systems reviewed & are unremarkable except as noted in Subjective Physical Exam Physical Exam: General- No acute distress Head- atraumatic Eyes- PERRL, EOMI, ENT- oropharynx clear Neck- supple, no JVD Lungs- +wheezing Heart- regular rhythm; no murmur Abdomen- normal bowel sounds, soft, nontender Extremities- no calf tenderness Neuro- alert, oriented x 3; PERRL, EOMI; no facial palsy; no dysarthria Skin- warm & dry Results & Data Results & Data ([facility]) Vital Signs (Past 12 Hours) Vital Signs Temp Pulse Pulse Resp BP BP Pulse Ox 07/16/21 22:49 36.9 C 83 20 130/79 99 07/16/21 19:23 83 18 99 07/16/21 19:21 36.8 C 83 16 134/72 97 07/16/21 17:13 36.8 C 85 85 20 138/75 100 07/16/21 13:12 36.7 C 124 H 28 H 128/79 95
[2021-07-17] MEDS: methylPREDNISolone 40 MG in SYRINGE 0 ML IV SCH ×3 (02:12→18:16)
--- NOTE | 2021-07-17 06:56 | Electrocardiogram Report ---
Test Reason : Blood Pressure : / mmHG Vent. Rate : 081 BPM Atrial Rate : 081 BPM P-R Int : 136 ms QRS Dur : 080 ms QT Int : 370 ms P-R-T Axes : 057 038 098 degrees QTc Int : 429 ms Normal sinus rhythm Possible Left atrial enlargement T wave abnormality, consider lateral ischemia Abnormal ECG When compared with ECG of 13-JUL-2021 13:03, Non-specific change in ST segment in Inferior leads T wave inversion no longer evident in Inferior leads QT has shortened Confirmed by Darrel Arrington ([id number]) on 07/17/2021 6:56:13 AM Referred By: REFERRED SELF Confirmed By:Darrel Arrington
[2021-07-17] MEDS: ALBUT/IPRATROP 3MG/0.5MG NEB 3 ML VIAL NEB SCH ×4 (07:30→19:47)
--- NOTE | 2021-07-17 07:40 | Nephrology Progress Note ---
Date of Service July 17, 2021 Assessment & Plan Admission and Anticipated Discharge Date Admission Date: July 12, 2021 Subjective S---C/o Chronic SOB. On same o2 as home. Making urine. PHYSICAL EXAMINATION: GENERAL: A middle-aged white female, who appears chronically ill. She is awake and alert, oriented, but very slow in answering questions. HEENT: Mucous membrane is moist. NECK: Supple. CHEST: Bilateral rhonchi and crackles. CARDIOVASCULAR: S1 and S2 regular. Systolic murmur heard. ABDOMEN: Soft, nontender. EXTREMITIES: Show no edema. LABORATORY TEST:Creat and K both better ASSESSMENT AND PLAN: A 61-year-old female with complicated medical history including severe end-stage lung disease, status post bilateral lung transplant in 2020. Now admitted with multitude of symptoms including nausea, vomiting, poor appetite. I have been consulted for acute renal failure and hyponatremia and hyperkalemia management. 1. Acute renal failure. 2. Hyponatremia. 3. Hyperkalemia. The patient has a complicated medical history, but at baseline, her creatinine is around 1.4 range, but she does have frequent acute renal failure given multiple admissions. At the time of admission, she was at baseline kidney function, but since then, her creatinine has gone up and is up to 2.1 today with high potassium. The immediate concern is to manage her hyperkalemia, and to do that, we will do dextrose, insulin, sodium bicarbonate bolus as well as a bicarbonate drip at 100 mL per hour. Also give one dose of Lasix to get the potassium down. We will also add patiromer daily. Repeat BMP again later today to see the hyperkalemia improvement. If the kidney function continues to get worse, I would consider transfer to [facility] for a more comprehensive management. Recommend to do a renal ultrasound today to rule out hydronephrosis. Avoid nephrotoxic agents. Her current medication list seems appropriate and I do not see any medications which is well known to cause hyperkalemia. Continue the tacrolimus and everolimus. Bactrim can be associated with slight hyperkalemia, but she has always been on this drug without much problem. Rec: 1 Stop Bicarb drip. 2 Start NS at 80/hr for 1000 ml. 3 Continue patiromer for now. 4 Renal function and K is improving which is a good sign. 5 Daily labs at this point. Results & Data ([facility]) Vital Signs (Past 12 Hours) Vital Signs Temp Pulse Pulse Resp BP Pulse Ox 07/17/21 07:31 101 H 20 98 07/17/21 02:51 36.8 C 89 20 122/76 100 07/17/21 00:49 88 07/16/21 22:49 36.9 C 83 20 130/79 99
[2021-07-17] MEDS: SODIUM CHLORIDE 0.9% 1000ML 1,000 ML IV SCH ×2 (08:32→20:27)
[2021-07-17] MEDS: NEOMYCIN/POLYMYX/BACITR OINT 15 GM TUBE EXT SCH ×2 (08:34→20:32)
[2021-07-17] MEDS: HEPARIN SOD 5,000 UNIT/0.5 ML VIAL SQ SCH ×2 (08:34→20:36)
[2021-07-17] MEDS: FLUTICASONE/VILANTEROL 200/25MCG 14 PUFFS/INHALER INH SCH (08:34)
[2021-07-17] MEDS: azaTHIOprine 50 MG TAB PO SCH (08:35)
[2021-07-17] MEDS: TACROLIMUS 1 MG CAP PO SCH ×2 (08:35→20:33)
[2021-07-17] MEDS: TACROLIMUS 0.5 MG CAP PO SCH ×2 (08:35→20:34)
[2021-07-17] MEDS: CITALOPRAM 20 MG TAB PO SCH (08:36)
[2021-07-17] MEDS: EVEROLIMUS 0.5 MG PO SCH ×2 (08:36→20:33)
[2021-07-17] MEDS: METOPROLOL TARTRATE 50 MG TAB PO SCH ×2 (08:39→20:35)
[2021-07-17] MEDS: TUBE FEEDING WATER FLUSH GT SCH (08:41)
[2021-07-17] MEDS: LORazepam 0.5 MG TAB SL SCH ×2 (08:44→20:32)
[2021-07-17 10:05] LABS: Hematocrit (blood only) 27.2 % (37-47); Hemoglobin 8.7 g/dL (12.0-16.0); Mean Corpuscular Hemoglobin 30.3 pg (25-34); Mean Corpuscular Volume 94.8 fL (80-100); Platelet Count 183 K/uL (130-400); RDW Coefficient of Variation 15.9 % (11.5-14.5); RDW Standard Deviation 55.5 fL (36.4-46.3); Red Blood Count 2.87 M/uL (4.2-5.4); White Blood Count 6.14 K/uL (4.8-10.8)
[2021-07-17] MEDS: guaiFENesin 600 MG TABCR PO SCH ×2 (10:11→20:35)
[2021-07-17] MEDS: MAGNESIUM OXIDE 400 MG TAB PO SCH (10:11)
[2021-07-17 11:07] LABS: BUN Creatinine Ratio 32.1 (10-20); Calcium 9.2 mg/dl (8.5-10.1); Creatinine Clr Calc Pharmacy 22.8 ml/min; Est GFR (African American) 27.1 ml/min; Est GFR (Non-African American) 23.4 ml/min; Potassium 4.4 mmol/L (3.5-5.1)
[2021-07-17] MEDS: PANTOprazole 40 MG TAB PO SCH (11:57)
[2021-07-17] MEDS: AZITHROMYCIN 250 MG TAB PO SCH (11:57)
[2021-07-17] MEDS: VALGANCICLOVIR HCL 450 MG TABLET PO SCH (12:42)
[2021-07-17] MEDS: PATIROMER CALCIUM SORBITEX 8.4 GM PACK PO SCH (12:43)
[2021-07-17] MEDS: AMITRIPTYLINE HCL 50 MG TAB PO SCH (20:33)
--- NOTE | 2021-07-17 23:55 | Hospitalist Progress Note ---
Date of Service July 17, 2021 Assessment & Plan (1) Lung transplant status, bilateral: (2) Acute hyponatremia: (3) Elevated troponin: (4) Chronic respiratory failure with hypoxia: Plan: Patient is a 61-year-old female with hx of bilateral lung transplant in 2019 at [facility] with complicated course including difficulty weaning off the ventilator requiring tracheostomy, recurrent pneumonia and airway stenosis with stent in right bronchus intermedius, h/o pulmonary hypertension no longer on medications, paroxysmal atrial fibrillation, CKD III, history chronic nausea and vomiting with G-J tube in place with tube feedings, anemia who presents to ED due to ill feeling x3 days. Significance recently hospitalized 06/26-06/28 at [facility] due to abnormal bronch. She underwent bronchoscopy earlier in the month, 06/16/21, and there was noted yellowish secretions and stenoses of the right upper lobe NBI that required laser and balloon dilatation. Path was suggestive of large airways under inflammation and scarring but BAL RVP and cultures came back neg ative. Treated with 3g pulse methylprednisolone and d/c to home. Weakness Cough S/P B/L lung transplant [facility] 2019, recent bronchoscopy 06/16/21 Chronic hypoxic respiratory failure Fall pt with increased resp sx including cough, sob and wheezing x 3 day biofire panel negative and also COVID-19 negative CXR: w/o abnormality CT Chest: Redemonstration of bronchiectasis, bronchial wall thickening, and diffuse lower lobe predominant airspace opacities. Overall appearance is unchanged from multiple prior exams. Postsurgical changes of bilateral lung transplant. Head CT: No acute intracerebral pathology. Mild cerebral cortical atrophy and remote small vessel disease are again seen. There is interval improvement of mild ethmoid sinusitis. There is again mucosal thickening of the right mastoid air cells. Aggressive pulm toilet with nebs, flutter valve, incentive spirometry, muccinex Sputum culture, MRSA nasal screen, blood and urine cultures IV Cefepime was discontinued Continue tacrolimus, everolimus, azathioprine Continue chronic bactrim, azithromax, valganciclovir Continue breo Obtain tacrolimus level The admitting attending did discuss with Dr. Meng ([phone]), updated and discussed the case with her, continue with antibiotics/IV fluids/get tacrolimus and everolimus level. If any questions or concerns or worsening of her status and should the need for transfer arises, contact Dr. Meng will be on-call all week. Will plan to transition to hydrocortisone in a.m. Acute hyponatremia/hypochloremia Sodium on admission 127 Sodium 134 today Continue monitor BMP Hypomagnesemia Mg 2.6 yesterday on 07/14 Elevated troponin Troponin on admission 0.08 then dropped to 0.06 EKG showed no acute ischemic changes Denies any chest pain ROYER on CKD-3 Creatinine 2.1 today, baseline cr 1.4-1.8 Renal u/s showed no evidence of hydronephrosis. Nephrology consulted Case discussed with nephrology recommended if potassium worsening to transfer to a tertiary care due to hx of lung transplant avoid nephrotoxic agents Continue monitor BMP Hyperkalemia Potassium this morning 4.4 Received calcium, dextrose sodium bicarb bolus and insulin Nephrology on board Bicarb drip was discontinued Started on normal saline at 80 Continue patiromer daily as per nephrology Continue monitor BMP PAF continue metoprolol not on OAC Pancytopenia WBC and platelet count improved Continue monitor Dvt ppx: SQ Heparin BID Full Code Dispo: med tele PCP: Karel Admission and Anticipated Discharge Date Admission Date: July 12, 2021 Subjective Patient was seen and examined for follow-up of shortness of breath Lying in bed with no acute respiratory distress She said her breathing continues to improve Denies any chest pain, palpitation, dizziness and fever Review of Systems Review of Systems: All systems reviewed & are unremarkable except as noted in Subjective Physical Exam Physical Exam: General- No acute distress Head- atraumatic Eyes- PERRL, EOMI, ENT- oropharynx clear Neck- supple, no JVD Lungs- +wheezing Heart- regular rhythm; no murmur Abdomen- normal bowel sounds, soft, nontender Extremities- no calf tenderness Neuro- alert, oriented x 3; PERRL, EOMI; no facial palsy; no dysarthria Skin- warm & dry Results & Data Results & Data ([place]) Vital Signs (Past 12 Hours) Vital Signs Temp Pulse Pulse Resp BP BP Pulse Ox 07/17/21 22:50 36.8 C 83 16 134/78 98 07/17/21 19:48 89 18 97 07/17/21 19:32 36.8 C 76 18 127/76 99 07/17/21 15:35 36.8 C 78 20 129/74 98 07/17/21 15:22 76 07/17/21 15:20 74 20 98 07/17/21 12:04 37.2 C 110 H 20 133/81 95
[2021-07-18] MEDS: methylPREDNISolone 40 MG in SYRINGE 0 ML IV SCH ×3 (02:29→17:45)
[2021-07-18] MEDS: ALBUT/IPRATROP 3MG/0.5MG NEB 3 ML VIAL NEB SCH ×4 (07:10→22:35)
[2021-07-18] MEDS: SODIUM CHLOR 7% 4 ML NEB NEB SCH ×2 (07:10→19:32)
[2021-07-18] MEDS: SODIUM CHLORIDE 0.9% 1000ML 1,000 ML IV SCH (08:28)
[2021-07-18] MEDS: FLUTICASONE/VILANTEROL 200/25MCG 14 PUFFS/INHALER INH SCH (08:29)
[2021-07-18] MEDS: HEPARIN SOD 5,000 UNIT/0.5 ML VIAL SQ SCH ×2 (08:29→20:47)
[2021-07-18] MEDS: TACROLIMUS 0.5 MG CAP PO SCH ×2 (08:30→20:48)
[2021-07-18] MEDS: guaiFENesin 600 MG TABCR PO SCH ×2 (08:30→20:46)
[2021-07-18] MEDS: TACROLIMUS 1 MG CAP PO SCH ×2 (08:30→20:48)
[2021-07-18] MEDS: azaTHIOprine 50 MG TAB PO SCH (08:31)
[2021-07-18] MEDS: TUBE FEEDING WATER FLUSH GT SCH (08:31)
[2021-07-18] MEDS: MAGNESIUM OXIDE 400 MG TAB PO SCH (08:31)
[2021-07-18] MEDS: CITALOPRAM 20 MG TAB PO SCH (08:31)
[2021-07-18] MEDS: EVEROLIMUS 0.5 MG PO SCH ×2 (08:31→20:46)
[2021-07-18] MEDS: METOPROLOL TARTRATE 50 MG TAB PO SCH ×2 (08:32→20:47)
[2021-07-18] MEDS: NEOMYCIN/POLYMYX/BACITR OINT 15 GM TUBE EXT SCH ×2 (08:33→20:47)
[2021-07-18] MEDS: LORazepam 0.5 MG TAB SL SCH ×2 (08:36→20:53)
[2021-07-18 09:22] LABS: BUN Creatinine Ratio 36.4 (10-20); Calcium 9.3 mg/dl (8.5-10.1); Creatinine Clr Calc Pharmacy 28.7 ml/min; Est GFR (African American) 35.8 ml/min; Est GFR (Non-African American) 30.9 ml/min
[2021-07-18] MEDS: VALGANCICLOVIR HCL 450 MG TABLET PO SCH (11:43)
[2021-07-18] MEDS: PANTOprazole 40 MG TAB PO SCH (11:43)
[2021-07-18] MEDS: AZITHROMYCIN 250 MG TAB PO SCH (11:43)
[2021-07-18] MEDS: PATIROMER CALCIUM SORBITEX 8.4 GM PACK PO SCH (13:14)
--- NOTE | 2021-07-18 13:17 | Nephrology Progress Note ---
Date of Service July 18, 2021 Assessment & Plan Admission and Anticipated Discharge Date Admission Date: July 12, 2021 Subjective Subjective S---C/o Chronic SOB. On same o2 as home. Making urine. PHYSICAL EXAMINATION: GENERAL: A middle-aged white female, who appears chronically ill. She is awake and alert, oriented, but very slow in answering questions. HEENT: Mucous membrane is moist. NECK: Supple. CHEST: Bilateral rhonchi and crackles. CARDIOVASCULAR: S1 and S2 regular. Systolic murmur heard. ABDOMEN: Soft, nontender. EXTREMITIES: Show no edema. LABORATORY TEST:Creat and K both better. renal US---fine ASSESSMENT AND PLAN: A 61-year-old female with complicated medical history including severe end-stage lung disease, status post bilateral lung transplant in 2020. Now admitted with multitude of symptoms including nausea, vomiting, poor appetite. I have been consulted for acute renal failure and hyponatremia and hyperkalemia management. 1. Acute renal failure. 2. Hyponatremia. 3. Hyperkalemia. The patient has a complicated medical history, but at baseline, her creatinine is around 1.4 range, but she does have frequent acute renal failure given multiple admissions. At the time of admission, she was at baseline kidney function, but since then, her creatinine has gone up and is up to 2.1 today with high potassium. The immediate concern is to manage her hyperkalemia, and to do that, we will do dextrose, insulin, sodium bicarbonate bolus as well as a bicarbonate drip at 100 mL per hour. Also give one dose of Lasix to get the potassium down. We will also add patiromer daily. Repeat BMP again later today to see the hyperkalemia improvement. If the kidney function continues to get worse, I would consider transfer to [facility] for a more comprehensive management. Recommend to do a renal ultrasound today to rule out hydronephrosis. Avoid nephrotoxic agents. Her current medication list seems appropriate and I do not see any medications which is well known to cause hyperkalemia. Continue the tacrolimus and everolimus. Bactrim can be associated with slight hyperkalemia, but she has always been on this drug without much problem. Rec: 1 NS at 50/hr for 1000 ml. 3 Continue patiromer for now. 4 Renal function and K is improving which is a good sign. 5 Daily labs at this point. Results & Data ([facility]) Vital Signs (Past 12 Hours) Vital Signs Temp Pulse Pulse Resp BP BP Pulse Ox 07/18/21 11:09 36.8 C 80 20 128/73 99 07/18/21 10:36 94 H 20 99 07/18/21 08:30 90 07/18/21 07:43 36.8 C 106 H 24 143/80 H 95 07/18/21 07:11 92 H 18 99 07/18/21 02:50 36.7 C 84 16 133/77 98 07/18/21 01:54 85
[2021-07-18] MEDS: ACETYLCYSTEINE 10% INHAL SOLN 4 ML **DISPENSED BY RESP. INH SCH ×2 (15:25→19:33)
[2021-07-18] MEDS: AMITRIPTYLINE HCL 50 MG TAB PO SCH (20:45)
--- NOTE | 2021-07-19 00:05 | Hospitalist Progress Note ---
Date of Service July 18, 2021 Assessment & Plan (1) Lung transplant status, bilateral: (2) Acute hyponatremia: (3) Elevated troponin: (4) Chronic respiratory failure with hypoxia: Plan: Patient is a 61-year-old female with hx of bilateral lung transplant in 2019 at [facility] with complicated course including difficulty weaning off the ventilator requiring tracheostomy, recurrent pneumonia and airway stenosis with stent in right bronchus intermedius, h/o pulmonary hypertension no longer on medications, paroxysmal atrial fibrillation, CKD III, history chronic nausea and vomiting with G-J tube in place with tube feedings, anemia who presents to ED due to ill feeling x3 days. Significance recently hospitalized 06/26-06/28 at [facility] due to abnormal bronch. She underwent bronchoscopy earlier in the month, 06/16/21, and there was noted yellowish secretions and stenoses of the right upper lobe NBI that required laser and balloon dilatation. Path was suggestive of large airways under inflammation and scarring but BAL RVP and cultures came back neg ative. Treated with 3g pulse methylprednisolone and d/c to home. Weakness Cough S/P B/L lung transplant [facility] 2019, recent bronchoscopy 06/16/21 Chronic hypoxic respiratory failure Fall pt with increased resp sx including cough, sob and wheezing x 3 day biofire panel negative and also COVID-19 negative CXR: w/o abnormality CT Chest: Redemonstration of bronchiectasis, bronchial wall thickening, and diffuse lower lobe predominant airspace opacities. Overall appearance is unchanged from multiple prior exams. Postsurgical changes of bilateral lung transplant. Head CT: No acute intracerebral pathology. Mild cerebral cortical atrophy and remote small vessel disease are again seen. There is interval improvement of mild ethmoid sinusitis. There is again mucosal thickening of the right mastoid air cells. Aggressive pulm toilet with nebs, flutter valve, incentive spirometry, muccinex Sputum culture, MRSA nasal screen, blood and urine cultures IV Cefepime was discontinued Continue tacrolimus, everolimus, azathioprine Continue chronic bactrim, azithromax, valganciclovir Continue breo Tacrolimus level 7.9 The admitting attending did discuss with Dr. Meng ([phone]), updated and discussed the case with her, continue with antibiotics/IV fluids/get tacrolimus and everolimus level. If any questions or concerns or worsening of her status and should the need for transfer arises, contact Dr. Meng Continue Solumedrol 40mg TID IV Will plan to transition to hydrocortisone in a.m. Acute hyponatremia/hypochloremia Sodium on admission 127 Sodium 133 today Continue monitor BMP Hypomagnesemia Mg 2.6 yesterday on 07/14 Elevated troponin Troponin on admission 0.08 then dropped to 0.06 EKG showed no acute ischemic changes Denies any chest pain ROYER on CKD-3 Creatinine improved to 1.7 today, baseline cr 1.4-1.8 Renal u/s showed no evidence of hydronephrosis. Nephrology consulted Case discussed with nephrology recommended if potassium worsening to transfer to a tertiary care due to hx of lung transplant avoid nephrotoxic agents Continue monitor BMP Hyperkalemia Potassium this morning 5 Received calcium, dextrose sodium bicarb bolus and insulin Nephrology on board Bicarb drip was discontinued Started on normal saline at 80 Continue patiromer daily as per nephrology Continue monitor BMP PAF continue metoprolol not on OAC Pancytopenia WBC and platelet count improved Continue monitor Dvt ppx: SQ Heparin BID Full Code Dispo: med tele PCP: Karel Admission and Anticipated Discharge Date Admission Date: July 12, 2021 Subjective Patient was seen and examined for follow-up of shortness of breath Lying in bed with no acute respiratory distress She said that she continues to have a hard time to bring her phlegm up Denies any chest pain, palpitation, dizziness and fever Review of Systems Review of Systems: All systems reviewed & are unremarkable except as noted in Subjective Physical Exam Physical Exam: General- No acute distress Head- atraumatic Eyes- PERRL, EOMI, ENT- oropharynx clear Neck- supple, no JVD Lungs- +wheezing Heart- regular rhythm; no murmur Abdomen- normal bowel sounds, soft, nontender Extremities- no calf tenderness Neuro- alert, oriented x 3; PERRL, EOMI; no facial palsy; no dysarthria Skin- warm & dry Results & Data Results & Data ([facility]) Vital Signs (Past 12 Hours) Vital Signs Temp Pulse Pulse Resp BP BP Pulse Ox 07/18/21 23:10 36.9 C 89 16 145/80 H 99 07/18/21 22:19 91 H 07/18/21 20:39 93 H 130/74 96 07/18/21 19:34 83 16 97 02/13/22 19:24 36.9 C 84 16 146/81 H 98 07/18/21 16:11 73 07/18/21 15:45 36.5 C 89 20 129/78 97 07/18/21 15:26 78 20 97
[2021-07-19] MEDS: SODIUM CHLORIDE 0.9% 1000ML 1,000 ML IV SCH (00:42)
[2021-07-19] MEDS: methylPREDNISolone 40 MG in SYRINGE 0 ML IV SCH ×3 (01:27→17:48)
[2021-07-19] MEDS: ALBUT/IPRATROP 3MG/0.5MG NEB 3 ML VIAL NEB SCH ×4 (07:17→19:26)
[2021-07-19] MEDS: ACETYLCYSTEINE 10% INHAL SOLN 4 ML **DISPENSED BY RESP. INH SCH ×2 (07:18→19:26)
[2021-07-19] MEDS: SODIUM CHLOR 7% 4 ML NEB NEB SCH ×2 (07:19→19:26)
[2021-07-19] MEDS: FLUTICASONE/VILANTEROL 200/25MCG 14 PUFFS/INHALER INH SCH (08:37)
[2021-07-19] MEDS: LORazepam 0.5 MG TAB SL SCH ×2 (08:37→20:54)
[2021-07-19] MEDS: NEOMYCIN/POLYMYX/BACITR OINT 15 GM TUBE EXT SCH ×2 (08:38→20:55)
[2021-07-19] MEDS: METOPROLOL TARTRATE 50 MG TAB PO SCH ×2 (08:38→20:54)
[2021-07-19] MEDS: TACROLIMUS 1 MG CAP PO SCH ×2 (08:38→20:55)
[2021-07-19] MEDS: TACROLIMUS 0.5 MG CAP PO SCH ×2 (08:38→20:54)
[2021-07-19] MEDS: azaTHIOprine 50 MG TAB PO SCH (08:39)
[2021-07-19] MEDS: MAGNESIUM OXIDE 400 MG TAB PO SCH (08:39)
[2021-07-19] MEDS: guaiFENesin 600 MG TABCR PO SCH ×2 (08:39→20:54)
[2021-07-19] MEDS: CITALOPRAM 20 MG TAB PO SCH (08:39)
[2021-07-19] MEDS: HEPARIN SOD 5,000 UNIT/0.5 ML VIAL SQ SCH ×2 (08:39→20:55)
[2021-07-19] MEDS: EVEROLIMUS 0.5 MG PO SCH ×2 (08:40→20:56)
[2021-07-19] MEDS: TUBE FEEDING WATER FLUSH GT SCH (08:40)
[2021-07-19 10:04] LABS: Hematocrit (blood only) 24.4 % (37-47); Hemoglobin 7.8 g/dL (12.0-16.0); Mean Corpuscular Volume 96.8 fL (80-100); Mean Platelet Volume 9.5 fL (7.4-10.4); Platelet Count 139 K/uL (130-400); RDW Coefficient of Variation 15.9 % (11.5-14.5); RDW Standard Deviation 56.1 fL (36.4-46.3); Red Blood Count 2.52 M/uL (4.2-5.4); White Blood Count 5.35 K/uL (4.8-10.8)
[2021-07-19 10:41] LABS: BUN Creatinine Ratio 41.3 (10-20); Calcium 9.2 mg/dl (8.5-10.1); Creatinine Clr Calc Pharmacy 34.8 ml/min; Est GFR (African American) 45.1 ml/min; Est GFR (Non-African American) 38.9 ml/min
[2021-07-19] MEDS: PANTOprazole 40 MG TAB PO SCH (11:52)
[2021-07-19] MEDS: VALGANCICLOVIR HCL 450 MG TABLET PO SCH (11:52)
[2021-07-19] MEDS: AZITHROMYCIN 250 MG TAB PO SCH (11:52)
[2021-07-19] MEDS: SULFA/TRIMETH 400/80MG TAB PO SCH (11:52)
[2021-07-19] MEDS: PATIROMER CALCIUM SORBITEX 8.4 GM PACK PO SCH (14:22)
--- NOTE | 2021-07-19 15:31 | Nephrology Progress Note ---
Date of Service July 19, 2021 Assessment & Plan Admission and Anticipated Discharge Date Admission Date: July 12, 2021 Subjective Subjective S---C/o Chronic SOB. On same o2 as home. Making urine. PHYSICAL EXAMINATION: GENERAL: A middle-aged white female, who appears chronically ill. She is awake and alert, oriented, but very slow in answering questions. HEENT: Mucous membrane is moist. NECK: Supple. CHEST: Bilateral rhonchi and crackles. CARDIOVASCULAR: S1 and S2 regular. Systolic murmur heard. ABDOMEN: Soft, nontender. EXTREMITIES: Show no edema. LABORATORY TEST:Creat and K both better. renal US---fine ASSESSMENT AND PLAN: A 61-year-old female with complicated medical history including severe end-stage lung disease, status post bilateral lung transplant in 2019. Now admitted with multitude of symptoms including nausea, vomiting, poor appetite. I have been consulted for acute renal failure and hyponatremia and hyperkalemia management. 1. Acute renal failure. 2. Hyponatremia. 3. Hyperkalemia. The patient has a complicated medical history, but at baseline, her creatinine is around 1.4 range, but she does have frequent acute renal failure given multiple admissions. At the time of admission, she was at baseline kidney function, but since then, her creatinine has gone up and is up to 2.1 today with high potassium. Continue the tacrolimus and everolimus. Rec 1 Stop iv fluid. . 3 Stop patiromer for now. 4 Renal function and K is improving which is a good sign. 5 Daily labs at this point.Stable from renal standpoint at this point. Results & Data ([facility]) Vital Signs (Past 12 Hours) Vital Signs Temp Pulse Pulse Resp BP Pulse Ox 07/19/21 15:06 83 24 98 07/19/21 14:59 36.9 C 78 20 121/78 100 07/19/21 14:56 78 07/19/21 11:09 37.0 C 84 20 151/86 H 100 07/19/21 11:08 81 24 98 07/19/21 07:40 37.0 C 89 20 157/91 H 99 07/19/21 07:22 95 H 20 92 07/19/21 07:12 86
[2021-07-19] MEDS: AMITRIPTYLINE HCL 50 MG TAB PO SCH (20:54)
--- NOTE | 2021-07-20 00:01 | Hospitalist Progress Note ---
Date of Service July 19, 2021 Assessment & Plan (1) Lung transplant status, bilateral: (2) Acute hyponatremia: (3) Elevated troponin: (4) Chronic respiratory failure with hypoxia: Plan: Patient is a 61-year-old female with hx of bilateral lung transplant in 2019 at [facility] with complicated course including difficulty weaning off the ventilator requiring tracheostomy, recurrent pneumonia and airway stenosis with stent in right bronchus intermedius, h/o pulmonary hypertension no longer on medications, paroxysmal atrial fibrillation, CKD III, history chronic nausea and vomiting with G-J tube in place with tube feedings, anemia who presents to ED due to ill feeling x3 days. Significance recently hospitalized 06/26-06/28 at [facility] due to abnormal bronch. She underwent bronchoscopy earlier in the month, 06/16/21, and there was noted yellowish secretions and stenoses of the right upper lobe NBI that required laser and balloon dilatation. Path was suggestive of large airways under inflammation and scarring but BAL RVP and cultures came back neg ative. Treated with 3g pulse methylprednisolone and d/c to home. Weakness Cough S/P B/L lung transplant [facility] 2019, recent bronchoscopy 06/16/21 Chronic hypoxic respiratory failure Fall pt with increased resp sx including cough, sob and wheezing x 3 day biofire panel negative and also COVID-19 negative CXR: w/o abnormality CT Chest: Redemonstration of bronchiectasis, bronchial wall thickening, and diffuse lower lobe predominant airspace opacities. Overall appearance is unchanged from multiple prior exams. Postsurgical changes of bilateral lung transplant. Head CT: No acute intracerebral pathology. Mild cerebral cortical atrophy and remote small vessel disease are again seen. There is interval improvement of mild ethmoid sinusitis. There is again mucosal thickening of the right mastoid air cells. Aggressive pulm toilet with nebs, flutter valve, incentive spirometry, muccinex Sputum culture, MRSA nasal screen, blood and urine cultures IV Cefepime was discontinued Continue tacrolimus, everolimus, azathioprine Continue chronic bactrim, azithromax, valganciclovir Continue breo Tacrolimus level 7.9 The admitting attending did discuss with Dr. Meng ([phone]), updated and discussed the case with her, continue with antibiotics/IV fluids/get tacrolimus and everolimus level. If any questions or concerns or worsening of her status and should the need for transfer arises, contact Dr. Meng Continue Solumedrol 40mg TID IV Will transition to hydrocortisone in a.m. Acute hyponatremia/hypochloremia Sodium on admission 127 Sodium 135 today Continue monitor BMP Hypomagnesemia Mg 2.6 yesterday on 07/14 Elevated troponin Troponin on admission 0.08 then dropped to 0.06 EKG showed no acute ischemic changes Denies any chest pain ROYER on CKD-3 Creatinine improved to 1.4 today, baseline cr 1.4-1.8 Renal u/s showed no evidence of hydronephrosis. Nephrology consulted Case discussed with nephrology recommended if potassium worsening to transfer to a tertiary care due to hx of lung transplant avoid nephrotoxic agents Continue monitor BMP Hyperkalemia Potassium this morning 5 Received calcium, dextrose sodium bicarb bolus and insulin Nephrology on board Discontinue IV fluid and patiromer as per nephrology Continue monitor BMP PAF continue metoprolol not on OAC Pancytopenia WBC and platelet count improved Continue monitor Dvt ppx: SQ Heparin BID Full Code Dispo: med tele PCP: Karel Admission and Anticipated Discharge Date Admission Date: July 12, 2021 Subjective Patient was seen and examined for follow-up of shortness of breath Lying in bed with no acute respiratory distress Patient said her breathing is much better today compared to yesterday She said that she feels the Mucomyst and the hypertonic saline nebulizer helps to bring the phlegm Denies any chest pain, palpitation, dizziness and fever Review of Systems Review of Systems: All systems reviewed & are unremarkable except as noted in Subjective Physical Exam Physical Exam: General- No acute distress Head- atraumatic Eyes- PERRL, EOMI, ENT- oropharynx clear Neck- supple, no JVD Lungs- +wheezing Heart- regular rhythm; no murmur Abdomen- normal bowel sounds, soft, nontender Extremities- no calf tenderness Neuro- alert, oriented x 3; PERRL, EOMI; no facial palsy; no dysarthria Skin- warm & dry Results & Data Results & Data ([facility]) Vital Signs (Past 12 Hours) Vital Signs Temp Pulse Pulse Resp BP BP Pulse Ox 07/19/21 23:23 36.8 C 89 20 128/75 99 07/19/21 23:21 90 07/19/21 20:01 37.1 C 84 20 137/74 98 07/19/21 19:26 84 22 96 07/19/21 15:06 83 24 98 07/19/21 14:59 36.9 C 78 20 121/78 100 07/19/21 14:56 78
[2021-07-20] MEDS: methylPREDNISolone 40 MG in SYRINGE 0 ML IV SCH ×2 (01:47→08:05)
[2021-07-20] MEDS: SODIUM CHLOR 7% 4 ML NEB NEB SCH ×2 (07:30→20:02)
[2021-07-20] MEDS: ALBUT/IPRATROP 3MG/0.5MG NEB 3 ML VIAL NEB SCH ×4 (07:30→20:02)
[2021-07-20 08:01] LABS: Hemoglobin 8.7 g/dL (12.0-16.0); Mean Corpuscular Hemoglobin 31.1 pg (25-34); Mean Corpuscular Hgb Conc 32.2 g/dL (32-36); Mean Corpuscular Volume 96.4 fL (80-100); Mean Platelet Volume 9.4 fL (7.4-10.4); Platelet Count 147 K/uL (130-400); RDW Coefficient of Variation 15.8 % (11.5-14.5); RDW Standard Deviation 55.4 fL (36.4-46.3); White Blood Count 4.87 K/uL (4.8-10.8)
[2021-07-20] MEDS: HEPARIN SOD 5,000 UNIT/0.5 ML VIAL SQ SCH ×2 (08:05→21:02)
[2021-07-20] MEDS: guaiFENesin 600 MG TABCR PO SCH ×2 (08:05→21:02)
[2021-07-20] MEDS: LORazepam 0.5 MG TAB SL SCH ×2 (08:05→21:00)
[2021-07-20] MEDS: azaTHIOprine 50 MG TAB PO SCH (08:06)
[2021-07-20] MEDS: CITALOPRAM 20 MG TAB PO SCH (08:06)
[2021-07-20] MEDS: MAGNESIUM OXIDE 400 MG TAB PO SCH (08:06)
[2021-07-20] MEDS: METOPROLOL TARTRATE 50 MG TAB PO SCH ×2 (08:06→21:03)
[2021-07-20] MEDS: TACROLIMUS 0.5 MG CAP PO SCH ×2 (08:07→21:04)
[2021-07-20] MEDS: TACROLIMUS 1 MG CAP PO SCH ×2 (08:07→21:04)
[2021-07-20] MEDS: FLUTICASONE/VILANTEROL 200/25MCG 14 PUFFS/INHALER INH SCH (08:08)
[2021-07-20] MEDS: EVEROLIMUS 0.5 MG PO SCH ×2 (08:09→21:02)
[2021-07-20] MEDS: TUBE FEEDING WATER FLUSH GT SCH (08:10)
[2021-07-20] MEDS: NEOMYCIN/POLYMYX/BACITR OINT 15 GM TUBE EXT SCH ×2 (08:10→21:03)
[2021-07-20 08:24] LABS: BUN Creatinine Ratio 32.9 (10-20); Calcium 9.6 mg/dl (8.5-10.1); Creatinine Clr Calc Pharmacy 28.7 ml/min; Est GFR (African American) 35.8 ml/min; Est GFR (Non-African American) 30.9 ml/min; Magnesium 1.7 mg/dl (1.7-2.4); Potassium 5.3 mmol/L (3.5-5.1)
--- NOTE | 2021-07-20 10:15 | Nephrology Progress Note ---
Date of Service July 20, 2021 Assessment & Plan Admission and Anticipated Discharge Date Admission Date: July 12, 2021 Subjective Subjective Subjective S---C/o Chronic SOB. On same o2 as home. Making urine. PHYSICAL EXAMINATION: GENERAL: A middle-aged white female, who appears chronically ill. She is awake and alert, oriented, but very slow in answering questions. HEENT: Mucous membrane is moist. NECK: Supple. CHEST: Bilateral rhonchi and crackles. CARDIOVASCULAR: S1 and S2 regular. Systolic murmur heard. ABDOMEN: Soft, nontender. EXTREMITIES: Show no edema. LABORATORY TEST:Creat and K both somewhat worse today renal US---fine ASSESSMENT AND PLAN: A 61-year-old female with complicated medical history including severe end-stage lung disease, status post bilateral lung transplant in 2019. Now admitted with multitude of symptoms including nausea, vomiting, poor appetite. I have been consulted for acute renal failure and hyponatremia and hyperkalemia management. 1. Acute renal failure. 2. Hyponatremia. 3. Hyperkalemia. The patient has a complicated medical history, but at baseline, her creatinine is around 1.4 range, but she does have frequent acute renal failure given multiple admissions. At the time of admission, she was at baseline kidney function, but since then, her creatinine has gone up and was up to 2.1 today with high potassium. Continue the tacrolimus and everolimus. Rec 1 restart iv fluid. . 3 restart patiromer for now. 4 Renal function and K was improving but then is worse again. 5 Daily labs at this point. will need monitoring more from given rising creat and K again. . Results & Data ([facility]) Vital Signs (Past 12 Hours) Vital Signs Temp Pulse Pulse Resp BP BP Pulse Ox 07/20/21 07:31 100 H 20 100 07/20/21 07:28 36.8 C 97 H 20 143/81 H 99 07/20/21 07:22 94 H 07/20/21 04:30 36.6 C 86 20 152/76 H 98 07/19/21 23:23 36.8 C 89 20 128/75 99 07/19/21 23:21 90
[2021-07-20] MEDS: SODIUM CHLORIDE 0.9% 1000ML 1,000 ML IV SCH (10:52)
[2021-07-20] MEDS: PATIROMER CALCIUM SORBITEX 8.4 GM PACK PO SCH (11:06)
[2021-07-20] MEDS: AZITHROMYCIN 250 MG TAB PO SCH (11:29)
[2021-07-20] MEDS: PANTOprazole 40 MG TAB PO SCH (11:29)
[2021-07-20] MEDS: VALGANCICLOVIR HCL 450 MG TABLET PO SCH (11:30)
--- NOTE | 2021-07-20 16:16 | Hospitalist Progress Note ---
Date of Service July 20, 2021 Assessment & Plan (1) Lung transplant status, bilateral: (2) Acute hyponatremia: (3) Elevated troponin: (4) Chronic respiratory failure with hypoxia: Plan: Patient is a 61-year-old female with hx of bilateral lung transplant in 2019 at [facility] with complicated course including difficulty weaning off the ventilator requiring tracheostomy, recurrent pneumonia and airway stenosis with stent in right bronchus intermedius, h/o pulmonary hypertension no longer on medications, paroxysmal atrial fibrillation, CKD III, history chronic nausea and vomiting with G-J tube in place with tube feedings, anemia who presents to ED due to ill feeling x3 days. Significance recently hospitalized 06/26-06/28 at [facility] due to abnormal bronch. She underwent bronchoscopy earlier in the month, 06/16/21, and there was noted yellowish secretions and stenoses of the right upper lobe NBI that required laser and balloon dilatation. Path was suggestive of large airways under inflammation and scarring but BAL RVP and cultures came back neg ative. Treated with 3g pulse methylprednisolone and d/c to home. Weakness Cough S/P B/L lung transplant [facility] 2019, recent bronchoscopy 06/16/21 Chronic hypoxic respiratory failure Fall pt with increased resp sx including cough, sob and wheezing x 3 day biofire panel negative and also COVID-19 negative CXR: w/o abnormality CT Chest: Redemonstration of bronchiectasis, bronchial wall thickening, and diffuse lower lobe predominant airspace opacities. Overall appearance is unchanged from multiple prior exams. Postsurgical changes of bilateral lung transplant. Head CT: No acute intracerebral pathology. Mild cerebral cortical atrophy and remote small vessel disease are again seen. There is interval improvement of mild ethmoid sinusitis. There is again mucosal thickening of the right mastoid air cells. Aggressive pulm toilet with nebs, flutter valve, incentive spirometry, muccinex Sputum culture, MRSA nasal screen, blood and urine cultures IV Cefepime was discontinued Continue tacrolimus, everolimus, azathioprine Continue chronic bactrim, azithromax, valganciclovir Continue breo Tacrolimus level 7.9 The admitting attending did discuss with Dr. Meng ([phone]), updated and discussed the case with her, continue with antibiotics/IV fluids/get tacrolimus and everolimus level. If any questions or concerns or worsening of her status and should the need for transfer arises, contact Dr. Meng Currently on Solumedrol 40mg TID IV Will transition to hydrocortisone in a.m. I tried to call Dr. Meng to provide with upate, unfortunately i was placed on hold due to high calls volume Acute hyponatremia/hypochloremia Sodium on admission 127 Sodium 135 today Continue monitor BMP Hypomagnesemia Mg 2.6 yesterday on 07/14 Elevated troponin Troponin on admission 0.08 then dropped to 0.06 EKG showed no acute ischemic changes Denies any chest pain ROYER on CKD-3 Creatinine improved to 1.7 today, baseline cr 1.4-1.8 Renal u/s showed no evidence of hydronephrosis. Nephrology consulted Case discussed with nephrology recommended if potassium worsening to transfer to a tertiary care due to hx of lung transplant avoid nephrotoxic agents Continue monitor BMP Hyperkalemia Potassium this morning 5.3 Received calcium, dextrose sodium bicarb bolus and insulin Nephrology on board Discontinue IV fluid and patiromer as per nephrology Continue monitor BMP PAF continue metoprolol not on OAC Pancytopenia WBC and platelet count improved Continue monitor Dvt ppx: SQ Heparin BID Full Code Dispo: med tele PCP: Karel Admission and Anticipated Discharge Date Admission Date: July 12, 2021 Subjective Patient was seen and examined for follow-up of shortness of breath Lying in bed with no acute respiratory distress She said that her breathing is slightly better I called her transplant doctor Dr. Meng, unfortunately i was placed on hold due to high calls volume Denies any chest pain, palpitation, dizziness and fever Review of Systems Review of Systems: All systems reviewed & are unremarkable except as noted in Subjective Physical Exam Physical Exam: General- No acute distress Head- atraumatic Eyes- PERRL, EOMI, ENT- oropharynx clear Neck- supple, no JVD Lungs- +wheezing Heart- regular rhythm; no murmur Abdomen- normal bowel sounds, soft, nontender Extremities- no calf tenderness Neuro- alert, oriented x 3; PERRL, EOMI; no facial palsy; no dysarthria Skin- warm & dry Results & Data Results & Data ([facility]) Vital Signs (Past 12 Hours) Vital Signs Temp Pulse Pulse Resp BP BP Pulse Ox 07/20/21 15:46 36.9 C 73 20 122/74 99 07/20/21 15:31 77 07/20/21 15:06 76 18 99 07/20/21 11:18 36.9 C 90 20 145/85 H 100 07/20/21 10:49 80 18 98 07/20/21 07:31 100 H 20 100 07/20/21 07:28 36.8 C 97 H 20 143/81 H 99 07/20/21 07:22 94 H 07/20/21 04:30 36.6 C 86 20 152/76 H 98
[2021-07-20] MEDS: AMITRIPTYLINE HCL 50 MG TAB PO SCH (21:01)
[2021-07-20] MEDS: HYDROCORTISONE 10 MG TAB PO SCH (22:59)
[2021-07-21] MEDS: SODIUM CHLORIDE 0.9% 1000ML 1,000 ML IV SCH (05:08)
[2021-07-21 06:55] LABS: BUN Creatinine Ratio 36.8 (10-20); Calcium 9.2 mg/dl (8.5-10.1); Creatinine Clr Calc Pharmacy 30.5 ml/min; Est GFR (African American) 38.5 ml/min; Est GFR (Non-African American) 33.2 ml/min; Potassium 4.9 mmol/L (3.5-5.1)
[2021-07-21] MEDS: SODIUM CHLOR 7% 4 ML NEB NEB SCH ×2 (07:04→20:19)
[2021-07-21] MEDS: ALBUT/IPRATROP 3MG/0.5MG NEB 3 ML VIAL NEB SCH ×4 (07:04→20:19)
[2021-07-21] MEDS: PATIROMER CALCIUM SORBITEX 8.4 GM PACK PO SCH (09:54)
[2021-07-21] MEDS: FLUTICASONE/VILANTEROL 200/25MCG 14 PUFFS/INHALER INH SCH (09:55)
[2021-07-21] MEDS: MAGNESIUM OXIDE 400 MG TAB PO SCH (09:55)
[2021-07-21] MEDS: NEOMYCIN/POLYMYX/BACITR OINT 15 GM TUBE EXT SCH ×2 (09:55→20:52)
[2021-07-21] MEDS: HEPARIN SOD 5,000 UNIT/0.5 ML VIAL SQ SCH ×2 (09:56→20:50)
[2021-07-21] MEDS: CITALOPRAM 20 MG TAB PO SCH (09:56)
[2021-07-21] MEDS: TACROLIMUS 0.5 MG CAP PO SCH ×2 (09:56→20:52)
[2021-07-21] MEDS: guaiFENesin 600 MG TABCR PO SCH ×2 (09:56→20:52)
[2021-07-21] MEDS: azaTHIOprine 50 MG TAB PO SCH (09:57)
[2021-07-21] MEDS: EVEROLIMUS 0.5 MG PO SCH ×2 (09:57→20:49)
[2021-07-21] MEDS: HYDROCORTISONE 10 MG TAB PO SCH ×3 (09:58→20:51)
[2021-07-21] MEDS: TACROLIMUS 1 MG CAP PO SCH ×2 (09:59→20:51)
[2021-07-21] MEDS: METOPROLOL TARTRATE 50 MG TAB PO SCH ×2 (09:59→20:50)
[2021-07-21] MEDS: TUBE FEEDING WATER FLUSH GT SCH (10:01)
[2021-07-21] MEDS: LORazepam 0.5 MG TAB SL SCH ×2 (10:01→20:54)
[2021-07-21] MEDS: PANTOprazole 40 MG TAB PO SCH (12:09)
[2021-07-21] MEDS: AZITHROMYCIN 250 MG TAB PO SCH (12:09)
[2021-07-21] MEDS: VALGANCICLOVIR HCL 450 MG TABLET PO SCH (12:09)
--- NOTE | 2021-07-21 12:51 | Nephrology Progress Note ---
Date of Service July 21, 2021 Assessment & Plan (1) Acute on chronic renal failure: Plan: 61-year-old female with complicated medical history including severe end-stage lung disease, status post bilateral lung transplant in 2019. Now admitted with multitude of symptoms including nausea, vomiting, poor appetite. we were consulted for acute renal failure and hyponatremia and hyperkalemia management. At baseline, her creatinine is around 1.4 range, but she does have frequent acute renal failure given multiple admissions. At the time of admission, she was at baseline kidney function, but since then, her creatinine peaked at 2.2 on 07/17. near baseline today -daily bmp while in house -Continue the tacrolimus and everolimus per pulmonary or txplt recommendations Will sign off -at hospital d/c will need nephro clinic hospital discharge appt with any [facility] ician provider [facility] d/t recurrent ROYER and electrolyte issues; will also need weekly bmp x 3 wks to be ordered by nephro nurse (2) Electrolyte and fluid disorder: Plan: hyponatremia, hypokalemia both acceptable currently. k as high as low 6's on 07/16 -cont patiromer -cont low K diet >recommend education on this ->>ensure TF are low K -daily bmp while in house -neph f/u as above Admission and Anticipated Discharge Date Admission Date: July 12, 2021 Subjective ongoing dry cough; feels breathing at baseline; no n/v Review of Systems Review of Systems: All systems reviewed & are unremarkable except as noted in Subjective Physical Exam Constitutional: well developed and well nourished; no acute distress Eyes: EOM intact bilaterally ENMT: Ears: no external ear abnormality Nose: no external nose abnormality Mouth: + dry oral mucous membranes Neck: no nuchal rigidity Respiratory: normal respiratory effort Auscultation: + diminished lung sounds, + crackles (very coarse and diffuse BL) and + wheezes (insp/exp) on 2L 02nc Gastrointestinal (Abdomen): Inspection/Auscultation: normal bowel sounds Percussion/Palpation: abdomen soft; abdomen nontender Musculoskeletal: Extremities: strength 5/5 throughout Skin: no rashes, warm and dry Neurologic: dumont, fluent speech, no tremor Results & Data ([facility]) Vital Signs (Past 12 Hours) Vital Signs Temp Pulse Pulse Resp BP Pulse Ox 07/21/21 10:41 80 16 100 07/21/21 07:06 94 H 20 100 07/21/21 07:01 93 H 07/21/21 07:00 37 C 87 20 137/82 100 07/21/21 03:10 36.7 C 87 20 129/78 99 Laboratory Results 07/20/21 07:52 07/21/21 05:39
--- NOTE | 2021-07-21 16:35 | Hospitalist Progress Note ---
Date of Service July 21, 2021 Assessment & Plan (1) Lung transplant status, bilateral: (2) Acute hyponatremia: (3) Elevated troponin: (4) Chronic respiratory failure with hypoxia: Plan: 61-year-old female with hx of bilateral lung transplant in 2019 at [facility] with complicated course including difficulty weaning off the ventilator requiring tracheostomy, recurrent pneumonia and airway stenosis with stent in right bronchus intermedius, h/o pulmonary hypertension no longer on medications, paroxysmal atrial fibrillation, CKD III, history chronic nausea and vomiting with G-J tube in place with tube feedings, anemia who presents to ED due to ill feeling x3 days. Significance recently hospitalized 06/26-06/28 at [facility] due to abnormal bronch. She underwent bronchoscopy earlier in the month, 06/16/21, and there was noted yellowish secretions and stenoses of the right upper lobe NBI that required laser and balloon dilatation. Path was suggestive of large airways under inflammation and scarring but BAL RVP and cultures came back negative. Treated with 3g pulse methylprednisolone and d/c to home. Weakness Cough S/P B/L lung transplant [facility] 2019, recent bronchoscopy 06/16/21 Chronic hypoxic respiratory failure Fall pt with increased resp sx including cough, sob and wheezing x 3 day Biofire panel negative and also COVID-19 negative CXR: w/o acute abnormality CT Chest: Redemonstration of bronchiectasis, bronchial wall thickening, and diffuse lower lobe predominant airspace opacities. Overall appearance is unchanged from multiple prior exams. Postsurgical changes of bilateral lung transplant. Head CT: No acute intracerebral pathology. Mild cerebral cortical atrophy and remote small vessel disease are again seen. There is interval improvement of mild ethmoid sinusitis. There is again mucosal thickening of the right mastoid air cells. Aggressive pulm toilet with nebs, flutter valve, incentive spirometry, muccinex Blood cultures negative Was on cefepime which had been discontinued Continue tacrolimus, everolimus, azathioprine Continue chronic bactrim, azithromax, valganciclovir Continue breo The admitting attending did discuss with Dr. Meng ([phone]), updated and discussed the case with her, continue with antibiotics/IV fluids/get tacrolimus and everolimus level. If any questions or concerns or worsening of her status and should the need for transfer arises, contact Dr. Meng Continue home hydrocortisone ROYER on CKD-3 Creatinine improved to 1.63 today, baseline cr 1.4-1.8 Renal u/s showed no evidence of hydronephrosis. Nephrology on board Avoid nephrotoxic agents Continue monitor BMP Acute hyponatremia/hypochloremia Sodium on admission 127 Sodium 135 today Continue monitor BMP Hypomagnesemia Mg 1.5 on admission Monitor Elevated troponin Troponin on admission 0.08 then dropped to 0.06 EKG showed no acute ischemic changes Hyperkalemia Potassium 5.3 yesterday Received calcium, dextrose sodium bicarb bolus and insulin Continue patiromer Down to 4.9 today Nephrology on board Continue monitor BMP PAF continue metoprolol not on OAC Pancytopenia WBC and platelet count improved Continue monitor Dvt ppx: SQ Heparin BID Full Code Dispo: med tele PCP: Karel Admission and Anticipated Discharge Date Admission Date: July 12, 2021 Subjective Patient seen and examined. Patient reports shortness of breath is improved today. Still has cough productive of phlegm Reports constipation Denies any chest pain, palpitations Denies any fevers, chills, nausea, vomiting, abdominal pain Denies dysuria or frequency Physical Exam Constitutional: + well hydrated; no acute distress Eyes: PERRL, conjunctivae normal, anicteric sclerae ENMT: external ear and nose normal, oropharynx normal Respiratory: On 2l/min (chronic), coarse breath sounds globally, rhonchi and transmitted sounds Cardiovascular: Rate/Rhythm: regular rate and regular rhythm S1 S2 Gastrointestinal (Abdomen): normal bowel sounds, soft, nontender, no hepatosplenomegaly Musculoskeletal: No pedal edema Neurologic: PERRL, EOMI, accommodation nl, no face palsy, no dysarthria Results & Data Results & Data ([facility]) Vital Signs (Past 12 Hours) Vital Signs Temp Pulse Pulse Resp BP BP Pulse Ox 07/21/21 15:31 36.7 C 68 20 121/74 99 07/21/21 14:49 79 07/21/21 14:48 76 20 99 07/21/21 13:42 36.7 C 79 16 122/72 99 07/21/21 10:41 80 16 100 07/21/21 07:06 94 H 20 100 07/21/21 07:01 93 H 07/21/21 07:00 37 C 87 20 137/82 100 Laboratory Results Abnormal lab results 07/21/21 Range/Units 05:39 Sodium 135 L (136-145) mmol/L BUN 60 H (6-23) mg/dl Creatinine 1.63 H (0.6-1.2) mg/dl BUN/Creatinine Ratio 36.8 H (10-20) Glucose 106 H (70-99(Fasting)) mg/dl
[2021-07-21] MEDS: AMITRIPTYLINE HCL 50 MG TAB PO SCH (20:51)
[2021-07-22] MEDS: SODIUM CHLORIDE 0.9% 1000ML 1,000 ML IV SCH (00:50)
[2021-07-22] MEDS: SODIUM CHLOR 7% 4 ML NEB NEB SCH ×2 (06:55→19:21)
[2021-07-22] MEDS: ALBUT/IPRATROP 3MG/0.5MG NEB 3 ML VIAL NEB SCH ×4 (06:55→19:21)
[2021-07-22 07:02] LABS: Hematocrit (blood only) 23.5 % (37-47); Hemoglobin 7.4 g/dL (12.0-16.0); Mean Corpuscular Hemoglobin 30.5 pg (25-34); Mean Corpuscular Hgb Conc 31.5 g/dL (32-36); Mean Corpuscular Volume 96.7 fL (80-100); Mean Platelet Volume 9.6 fL (7.4-10.4); Platelet Count 114 K/uL (130-400); RDW Coefficient of Variation 15.8 % (11.5-14.5); RDW Standard Deviation 55.4 fL (36.4-46.3); Red Blood Count 2.43 M/uL (4.2-5.4); White Blood Count 2.66 K/uL (4.8-10.8)
[2021-07-22 07:21] LABS: BUN Creatinine Ratio 36.7 (10-20); Creatinine Clr Calc Pharmacy 38.8 ml/min; Est GFR (African American) 51.5 ml/min; Est GFR (Non-African American) 44.5 ml/min; Magnesium 1.5 mg/dl (1.7-2.4); Potassium 4.5 mmol/L (3.5-5.1)
[2021-07-22] MEDS: METOPROLOL TARTRATE 50 MG TAB PO SCH ×2 (07:58→21:11)
[2021-07-22] MEDS: CITALOPRAM 20 MG TAB PO SCH (07:59)
[2021-07-22] MEDS: TACROLIMUS 0.5 MG CAP PO SCH ×2 (07:59→21:12)
[2021-07-22] MEDS: TACROLIMUS 1 MG CAP PO SCH ×2 (08:00→21:11)
[2021-07-22] MEDS: HYDROCORTISONE 10 MG TAB PO SCH ×3 (08:00→21:10)
[2021-07-22] MEDS: MAGNESIUM OXIDE 400 MG TAB PO SCH (08:01)
[2021-07-22] MEDS: azaTHIOprine 50 MG TAB PO SCH (08:01)
[2021-07-22] MEDS: FLUTICASONE/VILANTEROL 200/25MCG 14 PUFFS/INHALER INH SCH (08:01)
[2021-07-22] MEDS: guaiFENesin 600 MG TABCR PO SCH ×2 (08:01→21:11)
[2021-07-22] MEDS: EVEROLIMUS 0.5 MG PO SCH ×2 (08:02→21:13)
[2021-07-22] MEDS: HEPARIN SOD 5,000 UNIT/0.5 ML VIAL SQ SCH ×2 (08:03→21:09)
[2021-07-22] MEDS: NEOMYCIN/POLYMYX/BACITR OINT 15 GM TUBE EXT SCH ×3 (08:04→21:14)
[2021-07-22] MEDS: LORazepam 0.5 MG TAB SL SCH ×2 (08:13→21:12)
[2021-07-22] MEDS: TUBE FEEDING WATER FLUSH GT SCH (08:13)
[2021-07-22] MEDS ORDERED: MAGNESIUM SULFATE / D5W 1 GM/100 ML BAG IV ONE (08:15)
[2021-07-22] MEDS: PATIROMER CALCIUM SORBITEX 8.4 GM PACK PO SCH (10:35)
--- NOTE | 2021-07-22 10:44 | Hospitalist Progress Note ---
Date of Service July 22, 2021 Assessment & Plan (1) Lung transplant status, bilateral: (2) Acute hyponatremia: (3) Elevated troponin: (4) Chronic respiratory failure with hypoxia: Plan: 61-year-old female with hx of bilateral lung transplant in 2019 at [facility] with complicated course including difficulty weaning off the ventilator requiring tracheostomy, recurrent pneumonia and airway stenosis with stent in right bronchus intermedius, h/o pulmonary hypertension no longer on medications, paroxysmal atrial fibrillation, CKD III, history chronic nausea and vomiting with G-J tube in place with tube feedings, anemia who presents to ED due to ill feeling x3 days. Significance recently hospitalized 06/26-06/28 at [facility] due to abnormal bronch. She underwent bronchoscopy earlier in the month, 06/16/21, and there was noted yellowish secretions and stenoses of the right upper lobe NBI that required laser and balloon dilatation. Path was suggestive of large airways under inflammation and scarring but BAL RVP and cultures came back negative. Treated with 3g pulse methylprednisolone and d/c to home. Weakness Cough S/P B/L lung transplant [facility] 2019, recent bronchoscopy 06/16/21 Chronic hypoxic respiratory failure Fall pt with increased resp sx including cough, sob and wheezing x 3 day Biofire panel negative and also COVID-19 negative CXR: w/o acute abnormality CT Chest: Redemonstration of bronchiectasis, bronchial wall thickening, and diffuse lower lobe predominant airspace opacities. Overall appearance is unchanged from multiple prior exams. Postsurgical changes of bilateral lung transplant. Head CT: No acute intracerebral pathology. Mild cerebral cortical atrophy and remote small vessel disease are again seen. There is interval improvement of mild ethmoid sinusitis. There is again mucosal thickening of the right mastoid air cells. Aggressive pulm toilet with nebs, flutter valve, incentive spirometry, muccinex Blood cultures negative Was on cefepime which had been discontinued Continue tacrolimus, everolimus, azathioprine Continue chronic bactrim, azithromax, valganciclovir Continue breo Continue home hydrocortisone ROYER on CKD-3 Creatinine improved to 1.2 today, baseline cr 1.4-1.8 Renal u/s showed no evidence of hydronephrosis. Avoid nephrotoxic agents Continue monitor BMP Acute hyponatremia/hypochloremia Sodium on admission 127 Sodium 135 today Continue monitor BMP Hypomagnesemia Mg 1.5 on admission Replete and monitor Elevated troponin Troponin on admission 0.08 then dropped to 0.06 EKG showed no acute ischemic changes Hyperkalemia K is now 4.5 Continue patiromer Low K diet PAF continue metoprolol not on OAC Pancytopenia Patient's cell counts all dropped from 2 days ago I called patient's Transplant Billing Checker Dr Bae. We discussed patient's care. Patient was recently started on azathioprine. I plan to keep patient for another 24h to monitor cell counts. He wants me to give him a call tomorrow to review labs prior to discharge Dvt ppx: SQ Heparin BID Full Code Dispo: med tele PCP: Karel Admission and Anticipated Discharge Date Admission Date: July 12, 2021 Subjective Patient seen and examined. Patient reports shortness of breath continue to improve Still has productive cough Denies any chest pain, palpitations Reports nausea today Denies any fevers, chills, vomiting, abdominal pain Denies dysuria or frequency Physical Exam Constitutional: + well hydrated; no acute distress Eyes: PERRL, conjunctivae normal, anicteric sclerae ENMT: external ear and nose normal, oropharynx normal Respiratory: On 2l/min nasal oxygen, coarse breath sounds and transmitted sounds Cardiovascular: Rate/Rhythm: regular rate and regular rhythm S1 S2 Gastrointestinal (Abdomen): normal bowel sounds, soft, nontender, no hepatosplenomegaly Musculoskeletal: no cyanosis or clubbing, extremities motor strength 5/5 Neurologic: PERRL, EOMI, accommodation nl, no face palsy, no dysarthria Results & Data Results & Data ([facility]) Vital Signs (Past 12 Hours) Vital Signs Temp Pulse Pulse Resp BP BP Pulse Ox 07/22/21 07:13 36.7 C 85 18 145/85 H 100 07/22/21 06:58 83 18 99 07/22/21 03:37 37.0 C 87 18 120/73 97 07/22/21 00:21 89 Laboratory Results Abnormal lab results 07/22/21 07/22/21 07/22/21 Range/Units 06:10 06:10 13:54 WBC 2.66 L 3.70 L (4.8-10.8) K/uL RBC 2.43 L 2.65 L (4.2-5.4) M/uL Hgb 7.4 L 8.1 L (12.0-16.0) g/dL Hct 23.5 L 25.8 L (37-47) % MCHC 31.5 L 31.4 L (32-36) g/dL RDW Std Deviation 55.4 H 57.5 H (36.4-46.3) fL RDW Coeff of Janina 15.8 H 16.1 H (11.5-14.5) % Plt Count 114 L 116 L (130-400) K/uL Sodium 135 L (136-145) mmol/L Anion Gap 2 L (3-11) BUN 47 H (6-23) mg/dl Creatinine 1.28 H D (0.6-1.2) mg/dl BUN/Creatinine Ratio 36.7 H (10-20) Magnesium 1.5 L (1.7-2.4) mg/dl
[2021-07-22] MEDS: ONDANSETRON INJ 2 MG/ML 2 ML VIAL IV PRN ×2 (10:52→19:34)
[2021-07-22] MEDS ORDERED: PROCHLORPERAZINE 5 MG in SYRINGE 4 ML IV ONE (12:15)
[2021-07-22] MEDS: AZITHROMYCIN 250 MG TAB PO SCH (13:19)
[2021-07-22] MEDS: VALGANCICLOVIR HCL 450 MG TABLET PO SCH (13:19)
[2021-07-22] MEDS: PANTOprazole 40 MG TAB PO SCH (13:19)
[2021-07-22 14:14] LABS: Hematocrit (blood only) 25.8 % (37-47); Hemoglobin 8.1 g/dL (12.0-16.0); Mean Corpuscular Hemoglobin 30.6 pg (25-34); Mean Corpuscular Hgb Conc 31.4 g/dL (32-36); Mean Corpuscular Volume 97.4 fL (80-100); Mean Platelet Volume 9.4 fL (7.4-10.4); Platelet Count 116 K/uL (130-400); RDW Coefficient of Variation 16.1 % (11.5-14.5); RDW Standard Deviation 57.5 fL (36.4-46.3); Red Blood Count 2.65 M/uL (4.2-5.4)
[2021-07-22] MEDS: AMITRIPTYLINE HCL 50 MG TAB PO SCH (21:11)
[2021-07-22] MEDS ORDERED: Nursing to Pharmacy Communication SCH (21:15)
[2021-07-22] MEDS ORDERED: NON-FORMULARY PATIENT'S OWN MED PO PRN (22:44)
[2021-07-23] MEDS: SODIUM CHLOR 7% 4 ML NEB NEB SCH (07:09)
[2021-07-23] MEDS: ALBUT/IPRATROP 3MG/0.5MG NEB 3 ML VIAL NEB SCH ×2 (07:09→10:46)
[2021-07-23 07:32] LABS: Hemoglobin 7.4 g/dL (12.0-16.0); Mean Corpuscular Hemoglobin 30.8 pg (25-34); Mean Corpuscular Hgb Conc 32.2 g/dL (32-36); Mean Corpuscular Volume 95.8 fL (80-100); RDW Coefficient of Variation 15.8 % (11.5-14.5); RDW Standard Deviation 54.5 fL (36.4-46.3); White Blood Count 2.51 K/uL (4.8-10.8)
[2021-07-23] MEDS: ONDANSETRON INJ 2 MG/ML 2 ML VIAL IV PRN (07:45)
[2021-07-23 07:58] LABS: Creatinine Clr Calc Pharmacy 39.8 ml/min; Est GFR (Non-African American) 45.7 ml/min; Potassium 4.3 mmol/L (3.5-5.1)
[2021-07-23 07:59] LABS: Mean Platelet Volume 8.6 fL (7.4-10.4); Platelet Count 89 K/uL (130-400); Platelet Estimate Decreased (Normal)
[2021-07-23] MEDS: TACROLIMUS 1 MG CAP PO SCH (08:53)
[2021-07-23] MEDS: TACROLIMUS 0.5 MG CAP PO SCH (08:53)
[2021-07-23] MEDS: EVEROLIMUS 0.5 MG PO SCH (08:54)
[2021-07-23] MEDS: azaTHIOprine 50 MG TAB PO SCH (08:54)
[2021-07-23] MEDS: CITALOPRAM 20 MG TAB PO SCH (08:55)
[2021-07-23] MEDS: METOPROLOL TARTRATE 50 MG TAB PO SCH (08:55)
[2021-07-23] MEDS: MAGNESIUM OXIDE 400 MG TAB PO SCH (08:56)
[2021-07-23] MEDS: guaiFENesin 600 MG TABCR PO SCH (08:56)
[2021-07-23] MEDS: HYDROCORTISONE 10 MG TAB PO SCH (08:56)
[2021-07-23] MEDS: FLUTICASONE/VILANTEROL 200/25MCG 14 PUFFS/INHALER INH SCH (08:57)
[2021-07-23] MEDS: LORazepam 0.5 MG TAB SL SCH (08:58)
[2021-07-23] MEDS: TUBE FEEDING WATER FLUSH GT SCH (08:58)
[2021-07-23] MEDS: HEPARIN SOD 5,000 UNIT/0.5 ML VIAL SQ SCH (08:59)
--- NOTE | 2021-07-23 09:49 | Discharge Summary ---
Date of Service July 23, 2021 Admission HPI Per Admitting Provider Patient is a 61-year-old female with hx of bilateral lung transplant in 2020 at [facility] with complicated course including difficulty weaning off the ventilator requiring tracheostomy, recurrent pneumonia and airway stenosis with stent in right bronchus intermedius, h/o pulmonary hypertension no longer on medications, paroxysmal atrial fibrillation, CKD III, history chronic nausea and vomiting with G-J tube in place with tube feedings, anemia who presents to ED due to ill feeling x3 days. Her is at bedside. Significance patient was recently hospitalized at [facility] on 06/25 06/28 due to abnormal bronchoscopy results from 06/16/21. She underwent bronchoscopy earlier in the month and there was noted yellowish secretions and stenoses of the right upper lobe NBI that required laser and balloon dilatation. Path was suggestive of large airways under inflammation and scarring but BAL RVP and cultures came back negative. While hospitalized she did require 3g pulse methylprednisolone which was c omplicated by mild hyperglycemia and hyperkalemia. Her oxygen requirements returned to baseline and she was discharged to home. Was doing well until 3 days ago after receiving Neupogen injection due to leukopenia. She developed wet cough, but unable to produce, sweats, dizziness and off-balance feeling, increasing shortness of breath and nausea. She denies any sick contacts and is fully vaccinated for COVID-19. She was recently hospitalized May 2021 with influenza A. She denies documented fever or chills, lightheadedness, syncope or presyncope, chest pain, palpitations, shortness of breath at rest, sinus congestion, sore throat, emesis, abdominal pain, change in bowel or urinary habits. She does have chronic nausea and she feels this is unchanged. She has G-tube in place but this has not been used since as she had been eating and drinking and taking her medications without difficulty. She does feel more short of breath as well as wheezing. She has home oxygen that she has to wear with exertion and at night, but encouraged her to wear throughout the day due to not feeling well. She has not been eating and drinking well the past 3 days. She has not been using anything [id number] for symptoms. In ED patient did have documented hypoxia but this was after exertion and off oxygen at 86%. She was placed on 2 L of oxygen which improved her oxygenation status. She remained afebrile in ED. Lab work notable for pancytopenia with WBC 4.75, H&H 10.0 and 30.3, platelet 118, sodium 127, chloride 86, stable BUN/creatinine 26 1.41, mag 1.5 mildly elevated troponin of 1.08. Her bio fire respiratory panel was negative for respiratory pathogens. She received IV fluid and nebulizer in ED. Admission Exam Per Admitting Provider Constitutional: Chronically ill appearing female, vitals as above, NAD, sitting up in bed, pleasant, conversing easily Head: Normocephalic, Atraumatic Eyes: PERRL, conjunctivae normal, anicteric sclerae ENMT: external ear and nose normal, oropharynx normal Neck: trachea midline, + scaring from prior trach, no thyromegaly normal visual inspection Respiratory: normal respiratory effort,on 2L of O2 via NC, b/l course breath sounds with diffuse rhonchi and wheezing along with prolonged exp phase, no rales. Normal insp/exp effort, no accessory muscle use Cardiovascular: RRR, no murmur, no edema Vessels: no JVD or carotid bruit Chest: normal inspection of chest Abdomen: normal bowel sounds, soft, nontender, no hepatosplenomegaly + G tube in place, no erythema, tube appears unkempt Musculoskeletal: no cyanosis or clubbing, extremities motor strength 5/5 Skin: no rashes, warm and dry moderate turgor Neurologic: PERRL, EOMI, accommodation nl, no face palsy, no dysarthria CN's II-XI intact bilaterally and moves all extremities Psychiatric: A+Ox3, euthymic affect Lymphatic: no cervical or axillary lymphadenopathy : deferred Principal Diagnosis Hyponatremia Acute on chronic kidney disease Chronic respiratory failure with hypoxia Pancytopenia Discharge Exam Constitutional + well hydrated; no acute distress Eyes PERRL, conjunctivae normal, anicteric sclerae ENMT external ear and nose normal, oropharynx normal Respiratory On 2l/min nasal cannula Expiratory rhonchi Transmitted sounds Cardiovascular Rate/Rhythm: regular rate and regular rhythm S1 S2 Gastrointestinal (Abdomen) normal bowel sounds, soft, nontender, no hepatosplenomegaly Musculoskeletal no cyanosis or clubbing, extremities motor strength 5/5 Neurologic PERRL, EOMI, accommodation nl, no face palsy, no dysarthria Psychiatric A+Ox3, euthymic affect Discharge Data Allergies Allergy/AdvReac Type Severity Reaction Status Date / Time glimepiride AdvReac Severe Fainting Verified 07/12/21 12:30 Consultations 07/12/21 11:59 ED Decision to Admit Stat 07/12/21 13:17 Consult Pulmonology Routine 07/16/21 08:03 Consult Nephrology Routine Ordered Studies 07/12/21 13:15 CT chest diagnostic wo con Stat Lungs and pleura: Redemonstration of bronchiectasis and patchy airspace opacities favoring the bilateral lower lobes. Postsurgical changes of bilateral lung transplant are seen. Previously noted pleural effusions have resolved. Interval stability of right upper lobe pleural-based nodule measuring approximately 9 mm. Heart and pericardium: There is cardiomegaly without evidence of pericardial effusion. Vessels: The pulmonary trunk is enlarged measuring 39 mm. Mediastinum and vadim: Unremarkable. Chest wall and lower neck: Unremarkable. Abdomen: Unremarkable. Bones: Degenerative changes in the thoracic spine. IMPRESSION: 1. Redemonstration of bronchiectasis, bronchial wall thickening, and diffuse lower lobe predominant airspace opacities. Overall appearance is unchanged from multiple prior exams. Postsurgical changes of bilateral lung transplant. 2. Interval resolution of previously noted pleural effusions. 3. Cardiomegaly and pulmonary hypertension. 07/12/21 13:19 CT head/brain wo con Stat Extraaxial space: There is no evidence for subdural hematoma. There are no extra-axial fluid collections. Ventricles and cisterns: The ventricles are normal in size and configuration. There is no evidence for midline shift or mass effect. Parenchyma: There is no subarachnoid or intraparenchymal hemorrhage. There is no evidence for an acute infarct or cerebral edema. There is mild cerebral cortical atrophy and decreased attenuation in the periventricular white matter representing remote small vessel disease. There are no gross mass lesions. Osseous structures: There is no evidence for an acute fracture. There is decreased mucosal thickening involving the ethmoid air cells bilaterally. The remaining visualized paranasal sinuses are clear. There is asymmetric mucosal thickening involving the mastoid air cells on the right when compared to the left. Soft tissues: There is no evidence for focal soft tissue swelling. IMPRESSION: No acute intracerebral pathology. Mild cerebral cortical atrophy and remote small vessel disease are again seen. There is interval improvement of mild ethmoid sinusitis. There is again mucosal thickening of the right mastoid air cells. 07/16/21 13:16 US renal/blad retro comp Routine The right kidney measures 11.7 cm in length, and the left kidney measures 9.9 cm in length. The right kidney is normal in size, contour, cortical thickness, and echogenicity. No hydronephrosis is identified. There is a cystic lesion seen in the right lower pole measuring 0.8 x 0.8 x 0.9 cm. No perinephric fluid collection is seen. The left kidney is normal in size, contour, cortical thickness and echogenicity. No hydronephrosis is identified. No renal lesion is identified. No perinephric fluid collection is seen. The bladder is partially distended. No large intraluminal mass is seen. Incidental note is made of minimal splenomegaly with a length of 12.9 cm. IMPRESSION: Unremarkable renal ultrasound. No evidence of hydronephrosis. Hospital Course (1) Lung transplant status, bilateral: (2) Acute hyponatremia: (3) Elevated troponin: (4) Chronic respiratory failure with hypoxia: 61-year-old female with hx of bilateral lung transplant in 2019 at [facility] with complicated course including difficulty weaning off the ventilator requiring tracheostomy, recurrent pneumonia and airway stenosis with stent in right bronchus intermedius, h/o pulmonary hypertension no longer on medications, paroxysmal atrial fibrillation, CKD III, history chronic nausea and vomiting with G-J tube in place with tube feedings, anemia who presents to ED due to ill feeling x3 days. Significance recently hospitalized 06/26-06/28 at [facility] due to abnormal bronch. She underwent bronchoscopy earlier in the month, 06/16/21, and there was noted yellowish secretions and stenoses of the right upper lobe NBI that required laser and balloon dilatation. Path was suggestive of large airways under inflammation and scarring but BAL RVP and cultures came back negative. Treated with 3g pulse methylprednisolone and d/c to home. Weakness Cough S/P B/L lung transplant [facility] 2019, recent bronchoscopy 06/16/21 Chronic hypoxic respiratory failure Bronchiectasis following lung transplant Patient presented with increased resp sx including cough, sob and wheezing x 3 day Biofire panel negative and also COVID-19 negative CXR: w/o acute abnormality CT Chest: Redemonstration of bronchiectasis, bronchial wall thickening, and diffuse lower lobe predominant airspace opacities. Overall appearance is unchanged from multiple prior exams. Postsurgical changes of bilateral lung transplant. Head CT: No acute intracerebral pathology. Mild cerebral cortical atrophy and remote small vessel disease are again seen. There is interval improvement of mild ethmoid sinusitis. There is again mucosal thickening of the right mastoid air cells. Aggressive pulm toilet with nebs, flutter valve, incentive spirometry, muccinex Blood cultures negative Was on treated cefepime which has been discontinued Was evaluated by it telecom technician. No concern for rejection Continue tacrolimus, everolimus Continue chronic bactrim, azithromax, valganciclovir Continue breo Continue home hydrocortisone Discussed with Patient's Transplant Cutting Machine Tender Dr Bae today who recommended to discontinue azathioprine for now until patient's follow up with him outpatient ROYER on CKD-3 Had ROYER while inpatient with Cr peaking at 2.18 (baseline cr 1.4-1.8) Renal u/s showed no evidence of hydronephrosis. Avoid nephrotoxic agents ROYER resolved. Cr improved to 1.25 today Acute Hyponatremia Sodium on admission 127 Was managed and improved to 135 today Hypomagnesemia Mg 1.5 on admission Repleted. Discharged on po magniesium oxide Elevated troponin Troponin on admission 0.08 then dropped to 0.06 EKG showed no acute ischemic changes Hyperkalemia Had hyperkalemia while inpatient, peaking at 6.2 Was managed with patiromer inpatient. This was too expensive for patient on discharge. She reported she has lokelma at home which she will continue Low K diet Follow up with Nephrology outpatient PAF continue metoprolol not on OAC Pancytopenia Hb stable at 7.4 Platelet dropped to 89 today WBC at 2.51 Stop taking azathioprine for now as documented above Total Time Total Time Spent Total Time Spent (In Minutes): 60 Total Time Includes: Examination of the Patient, Discharge Planning, Medication Reconciliation and Communication With Other Providers Discharge Plan Discharge Items Patient Disposition: Home - Self-Care Reason For Visit: Feeling unwell Discharge Diagnosis: Hyponatremia Acute on chronic kidney disease Chronic respiratory failure with hypoxia Pancytopenia Activity: Resume your previous activity Non-emergency contact: Primary Care Provider and Cutting Machine Tender Call non-emergency contact if: you have any medication questions and your symptoms worsen Follow-up/Referrals: Denise Sandoval MD, PhD [Physician] - (Call for appointment at Nephrology office) Jeferson Vinson MD [Primary Care Provider] - ( ) Diet: Heart Healthy and Low Potassium (2gm) Addtl Attending Provider Instructions: Mrs Adkins You came to the hospital for feeling unwell. You were evaluted and managed for the above listed diagnoses. You are feeling better and being discharged home. Please ensure follow up with your Primary Doctor, Dr Vinson as well as your transplant Cutting Machine Tender, Dr Bae. Please stop taking azathioprine for now until you see Dr Bae. Please ensure you continue to take low potassium diet. It is extremely important that you follow up with the Guard Manager (Kidney Doctor) in the office for continued monitoring and management. It was a pleasure taking care of you. Pending Studies at Discharge: No Stand-Alone Forms: My [facility]evia, Smoking Cessation Medications and DC Order Prescriptions: Continued pantoprazole [Protonix] 40 mg tablet,delayed release (DR/EC) 40 mg PO DAILY@1200 RF: 0 valganciclovir [Valcyte] 450 mg Tablet 450 mg PO DAILY@1200 RF: 0 Domperidone 20 mg PO QID RF: 0 amitriptyline 50 mg tablet 50 mg PO HS RF: 0 tacrolimus 1 mg Capsule 4.5 mg PO BID RF: 0 sennosides [senna] 8.6 mg Tablet 17.2 mg PO HS PRN (Reason: Constipation) RF: 0 albuterol sulfate 2.5 mg /3 mL (0.083 %) Solution For Nebulization 2.5 mg INHALATION Q4H PRN (Reason: Shortness Of Breath) RF: 0 citalopram 10 mg tablet 10 mg PO QAM RF: 0 acetaminophen 500 mg Tablet 500 mg PO Q6 PRN (Reason: Pain) RF: 0 lorazepam 0.5 mg tablet 0.5 mg sublingual BID RF: 0 metoprolol tartrate 50 mg tablet 50 mg PO BID RF: 0 everolimus (immunosuppressive) 0.5 mg Tablet 2 mg PO BID RF: 0 Breo Ellipta 200-25 mcg/dose blister with device 1 ea INHALATION QAM RF: 0 azithromycin 250 mg Tablet 250 mg PO DAILY@1200 RF: 0 sulfamethoxazole-trimethoprim [Bactrim] 400-80 mg tablet 1 tab PO 2XWK RF: 0 prochlorperazine maleate [Compazine] 10 mg tablet 10 mg PO BID PRN (Reason: Nausea And Vomiting) RF: 0 hydrocortisone [Cortef] 20 mg tablet 20 mg PO DAILY RF: 0 magnesium oxide 400 mg (241.3 mg magnesium) tablet 400 mg PO DAILY RF: 0 hydrocortisone 10 mg tablet 10 mg PO BID RF: 0 Discontinued azathioprine 50 mg Tablet 50 mg PO DAILY RF: 0 Discharge Orders: Discharge Order (Routine); Ordered 07/23/21 Ordered By: Charmaine Estrada/Other Patient Handouts: Low Potassium Diet Dc Admission Data Admit Date/Time: 07/12/21 12:27 Attending Provider: Charmaine Gibbs I. Admit Provider: Joseliot Weems Primary Care Provider: Jeferson Vinson Other Providers: Jasvir Melgar ; Joselito Weems ; [facility] ; María Mcqueen ; Darnell Weiss ; Chaka Bar Other Interventions: Discharge Summary Assessment (RN) Last Done: 07/23/21 09:55
== END 2021-07-23 11:15 | disposition home or self-care (01) | DRG 641 ==
LOC: ED 09:46 → EDINP 12:27 → SUATTDRO 12:27 → EDINP 16:50 → 2W 07-16 16:57
DX: Z79.52 Long term (current) use of systemic steroids; E87.5 Hyperkalemia; Z88.8 Allergy status to other drugs, medicaments and biological substances; E87.8 Other disorders of electrolyte and fluid balance, not elsewhere classified; J47.9 Bronchiectasis, uncomplicated; D61.818 Other pancytopenia; J96.11 Chronic respiratory failure with hypoxia; Z79.899 Other long term (current) drug therapy; Z79.51 Long term (current) use of inhaled steroids; Z99.81 Dependence on supplemental oxygen; Z93.1 Gastrostomy status; Z87.891 Personal history of nicotine dependence; I48.0 Paroxysmal atrial fibrillation; N17.9 Acute kidney failure, unspecified; Z94.2 Lung transplant status; N18.30 Chronic kidney disease, stage 3 unspecified; Z79.2 Long term (current) use of antibiotics; E87.1 Hypo-osmolality and hyponatremia; W19.XXXA Unspecified fall, initial encounter

== ENCOUNTER 2021-08-25 07:51 | Inpatient (IN) ==
[2021-08-25] MEDS ORDERED: methylPREDNISolone 125 MG/2 ML VIAL IV STA (08:06)
[2021-08-25] MEDS ORDERED: ALBUT/IPRATROP 3MG/0.5MG NEB 3 ML VIAL INH STA (08:06)
[2021-08-25] MEDS ORDERED: CEFEPIME 2,000 MG/20 ML VIAL IV STA (08:06)
--- NOTE | 2021-08-25 08:10 | Emergency Department Note ---
History of Present Illness General Chief complaint: Shortness of Breath/Dyspnea Stated complaint: SOB Time Seen by Provider: 08/25/21 07:59 History of Present Illness 61-year-old female presents with a chief complaint of shortness of breath. The patient has a history of COPD and uses 2 L of oxygen at home at all times. The patient also has a history of paroxysmal A. fib. She is currently not on anticoagulation. She reports that a increasing shortness of breath and a cough productive of yellow sputum over the past several days. She does have nebulizers at home but states that she did not use it yesterday or today. She also has a shaker vest this is periodically. The patient denies any chest pains. Denies other complaints at this time. She has not had a fever. Report having the Covid vaccinations as well as to boosters. Home Medications Medication Instructions Recorded Confirmed Type pantoprazole 40 mg tablet,delayed 40 mg PO DAILY@1200 01/24/20 08/25/21 History release (Protonix) sulfamethoxazole 400 1 tab PO 2XWK 09/08/20 08/25/21 History mg-trimethoprim 80 mg tablet (Bactrim) Domperidone 20 mg PO QID 10/21/20 08/25/21 History amitriptyline 50 mg tablet 50 mg PO HS 02/09/21 08/25/21 History tacrolimus 1 mg capsule, 4 mg PO AMHS 02/09/21 08/25/21 History immediate-release citalopram 10 mg tablet 10 mg PO .DAILY AT NOON 05/07/21 08/25/21 History everolimus (immunosuppressive) 0.5 2 mg PO BID 05/07/21 08/25/21 History mg tablet lorazepam 0.5 mg tablet 0.5 mg SUBLINGUAL BID 05/07/21 08/25/21 History metoprolol tartrate 50 mg tablet 25 mg PO BID 05/07/21 08/25/21 History azithromycin 250 mg tablet 250 mg PO DAILY@1200 05/18/21 08/25/21 History hydrocortisone 10 mg tablet 10 mg PO BID 07/12/21 08/25/21 History acyclovir 400 mg tablet 400 mg PO AMHS 08/25/21 08/25/21 History azathioprine 50 mg tablet 50 mg PO QAM 08/25/21 08/25/21 History docusate sodium 100 mg capsule 100 mg PO .DAILY AT NOON 08/25/21 08/25/21 History (Colace) hydrocortisone 10 mg tablet 20 mg PO QAM 08/25/21 08/25/21 History letermovir 240 mg tablet (Prevymis) 240 mg PO DAILY 08/25/21 08/25/21 History potassium chloride 20 mEq 20 meq PO BID 08/25/21 08/25/21 History tablet,extended release(part/cryst) Allergies Allergy/AdvReac Type Severity Reaction Status Date / Time glimepiride AdvReac Severe Fainting Verified 07/12/21 12:30 Past Med/Surg History Medical History ASCUS of cervix with negative high risk HPV Bronchiectasis following lung transplantation Cholesteatoma of both middle ears Chronic mastoiditis Chronic obstructive pulmonary disease Chronic respiratory failure with hypoxia and hypercapnia Chronic tympanomastoiditis Encounter for mastoidectomy cavity debridement History of actinic keratosis Hypercholesterolemia LGSIL on Pap smear of cervix Osteoporosis Paroxysmal A-fib Postmenopausal Pulmonary emphysema Pulmonary hypertension Surgical History History of colposcopy History of ear surgery Hx of colonoscopy Hx of tonsillectomy Lung transplant status, bilateral 11/11/2019 [facility] [place] S/P cardiac cath S/P dilation and curettage S/P wisdom tooth extraction Family History Mother Adenocarcinoma of lung Osteoporosis Rheumatoid arthritis Lung cancer Myocardial infarction Aunt Breast cancer maternal aunt Grandfather (Paternal) Colorectal cancer Father Lung cancer Denies family history of Ovarian cancer Social History Smoking Status: Former smoker Tobacco Type: Cigarettes Cigarettes Per Day: 1 ppd for 23 years; Second Hand Exposure: No; Hx Alcohol Use: No Hx Substance Use: No Preferred Language: Kiswahili Communication Ability: Effective Traveling Nurse Required: No Beliefs That Will Affect Care: None marital status: Current Living Situation: Spouse Feels Safe at Home: Yes Assistive Devices: Glasses and Oxygen - Continuous Review of Systems A total of 10 systems reviewed and were otherwise negative Physical Exam Vital Signs Vital Signs - 24 hr 08/25/21 07:52 08/25/21 08:00 08/25/21 08:08 Temperature 36.4 C L Temperature Source Temporal Artery Scan Pulse Rate 134 H 133 H Pulse Rate [Apical] Pulse Rate from SpO2 Sensor 132 H Respiratory Rate 28 H 35 H Respiratory Effort / Characteristics Short of Breath Respiratory Pattern Blood Pressure 147/98 H Blood Pressure Mean 114 Blood Pressure Position Sitting Pulse Oximetry 90 93 Oxygen Delivery Method Nasal Cannula Nasal Cannula Oxygen Flow Rate 4 4 Sepsis Recent Fever Within 48 Hours No Sepsis New/Unexplained Change in Mental Status No Sepsis Action Taken by Nursing No Action Required Oxygen Flow Rate - Titration 6 Pulse Oximetry Post Tiitration 96 08/25/21 08:30 08/25/21 08:49 08/25/21 09:00 Temperature Temperature Source Pulse Rate 125 H 123 H Pulse Rate [Apical] 123 H Pulse Rate from SpO2 Sensor Respiratory Rate 36 H 39 H Respiratory Effort / Characteristics Spontaneous Respiratory Pattern Blood Pressure Blood Pressure Mean Blood Pressure Position Pulse Oximetry 95 96 100 Oxygen Delivery Method Nasal Cannula Nasal Cannula Nebulizer Oxygen Flow Rate 6 6 6 Sepsis Recent Fever Within 48 Hours Sepsis New/Unexplained Change in Mental Status Sepsis Action Taken by Nursing Oxygen Flow Rate - Titration Pulse Oximetry Post Tiitration 08/25/21 09:11 08/25/21 09:15 08/25/21 09:30 Temperature Temperature Source Pulse Rate 124 H 134 H Pulse Rate [Apical] Pulse Rate from SpO2 Sensor Respiratory Rate 35 H 37 H Respiratory Effort / Characteristics Labored Short of Breath Respiratory Pattern Regular Blood Pressure 158/81 H Blood Pressure Mean 106 Blood Pressure Position Pulse Oximetry 100 99 Oxygen Delivery Method Nebulizer Nasal Cannula Oxygen Flow Rate 6 6 6 Sepsis Recent Fever Within 48 Hours Sepsis New/Unexplained Change in Mental Status Sepsis Action Taken by Nursing Oxygen Flow Rate - Titration Pulse Oximetry Post Tiitration CONSTITUTIONAL/VITAL SIGNS: Reviewed / noted above. GENERAL: Non-toxic in appearance. INTEGUMENTARY: Warm, dry, and [place]. HEAD: Normocephalic. EYES: without scleral icterus or trauma. ENT/OROPHARYNX: clear and moist. LYMPHADENOPATHY/NECK: Is supple without lymphadenopathy or meningismus. RESPIRATORY: Patient has some scattered rhonchi and wheezing bilaterally. She does have a increased breathing as well as tachypnea. CARDIOVASCULAR: Cardiac rate and regular rhythm. GI/ABDOMEN: Soft and nontender. No organomegaly or pulsatile mass. EXTREMITIES: Warm and well perfused. BACK: No CVA tenderness. NEUROLOGICAL: Intact without focal deficits. PSYCHIATRIC: normal affect. MUSCULOSKELETAL: Normally developed with good muscle tone. TRIAGE NURSING DOCUMENTATION REVIEWED. Course Administered Medications Discontinued Medications Albuterol (Albut/Ipratrop 3mg/0.5mg Neb 3 Ml Vial) 12 ml INH ONE STA Stop: 08/25/21 08:07 Last Admin: 08/25/21 08:46 Dose: 12 ml Documented by: [id number] Sodium Chloride (Nss 1000ml) 1,000 mls @ 999 mls/hr IV .Q1H1M FRANCIE Stop: 08/25/21 09:15 Last Admin: 08/25/21 08:57 Dose: 999 mls/hr Documented by: [id number] Cefepime HCl (Maxipime) 2,000 mg in 20 mls @ 5 mls/min IV NOW STA; Protocol Stop: 08/25/21 08:09 Last Admin: 08/25/21 09:01 Dose: 5 mls/min Documented by: [id number] Methylprednisolone (Methylprednisolone 125 Mg/2 Ml Vial) 125 mg IV NOW STA Stop: 08/25/21 08:07 Last Admin: 08/25/21 09:01 Dose: 125 mg Documented by: [id number] Medical Decision Making Differential Diagnosis The differential was considered includes acute myocardial infarction, acute coronary syndrome, myocarditis, pericarditis, pericardial effusions /tamponad, esophageal perforation, pulmonary embolism, pneumonia, pneumothorax, cardiomyopathy, congestive heart, anemia , COPD/asthma exacerbation. Medical Records Attestation: I reviewed the patient's medical records. Home Medications Current Medication List: was personally reviewed by me Laboratory Data Attestation: I reviewed the patient's lab results. Result diagrams: 08/25/21 08:30 08/25/21 08:30 Lab Results 08/25/21 08/25/21 08/25/21 Range/Units 08:30 08:30 08:30 WBC 10.93 H (4.8-10.8) K/uL RBC 2.82 L (4.2-5.4) M/uL Hgb 8.8 L (12.0-16.0) g/dL Hct 27.1 L (37-47) % MCV 96.1 (80-100) fL MCH 31.2 (25-34) pg MCHC 32.5 (32-36) g/dL RDW Std Deviation 57.2 H (36.4-46.3) fL RDW Coeff of Janina 16.2 H (11.5-14.5) % Plt Count 192 (130-400) K/uL Immature Gran % (Auto) 0.9 % Neut % (Auto) 79.8 % Lymph % (Auto) 10.5 % [place] % (Auto) 4.3 % Eos % (Auto) 4.1 % Baso % (Auto) 0.4 % Neut # (Auto) 8.72 H (1.4-6.5) K/uL Lymph # (Auto) 1.15 L (1.2-3.4) K/uL [place] # (Auto) 0.47 (0.11-0.59) K/uL Eos # (Auto) 0.45 (0-0.5) K/uL Baso # (Auto) 0.04 (0-0.2) K/uL Immature Gran # (Auto) 0.10 H (0.00-0.02) K/uL Hypersegmented Neuts 1+ Dohle Bodies 1+ Platelet Estimate Normal (Normal) PT Cancelled INR Cancelled APTT Cancelled PTT Ratio Cancelled ABG pH ABG pCO2 ABG pO2 ABG HCO3 ABG O2 Saturation ABG Base Excess Kimo Test Barometric Pressure Oxygen Given Sodium 132 L (136-145) mmol/L Potassium 5.0 (3.5-5.1) mmol/L Chloride 97 L (98-107) mmol/L Carbon Dioxide 28 (21-32) mmol/L Anion Gap 7 (3-11) BUN 71 H D (6-23) mg/dl Creatinine 3.46 H D (0.6-1.2) mg/dl Est Cr Clr Drug Dosing Not Reportable Est GFR ( Amer) 15.5 ml/min Est GFR (Non-Af Amer) 13.4 ml/min BUN/Creatinine Ratio 20.5 H (10-20) Glucose 169 H (70-99(Fasting)) mg/dl Lactate (0.4-2.0) mmol/L Calcium 10.4 H (8.5-10.1) mg/dl Total Bilirubin 0.3 (0.2-1.0) mg/dl AST 25 (13-39) U/L ALT 10 (7-52) U/L Alkaline Phosphatase 76 (34-104) U/L Troponin I 0.07 H* (0-0.04) ng/ml Total Protein 6.7 (6.0-8.3) gm/dl Albumin 3.7 (3.4-5.0) gm/dl Globulin 3.0 (2.5-4.0) gm/dl Albumin/Globulin Ratio 1.2 (0.9-2) Procalcitonin (0-0.5) ng/ml 08/25/21 08/25/21 08/25/21 Range/Units 08:30 08:30 10:23 WBC (4.8-10.8) K/uL RBC (4.2-5.4) M/uL Hgb (12.0-16.0) g/dL Hct (37-47) % MCV (80-100) fL MCH (25-34) pg MCHC (32-36) g/dL RDW Std Deviation (36.4-46.3) fL RDW Coeff of Janina (11.5-14.5) % Plt Count (130-400) K/uL Immature Gran % (Auto) % Neut % (Auto) % Lymph % (Auto) % [place] % (Auto) % Eos % (Auto) % Baso % (Auto) % Neut # (Auto) (1.4-6.5) K/uL Lymph # (Auto) (1.2-3.4) K/uL [place] # (Auto) (0.11-0.59) K/uL Eos # (Auto) (0-0.5) K/uL Baso # (Auto) (0-0.2) K/uL Immature Gran # (Auto) (0.00-0.02) K/uL Hypersegmented Neuts Dohle Bodies Platelet Estimate (Normal) PT INR APTT PTT Ratio ABG pH Cancelled ABG pCO2 Cancelled ABG pO2 Cancelled ABG HCO3 Cancelled ABG O2 Saturation Cancelled ABG Base Excess Cancelled Kimo Test Cancelled Barometric Pressure Cancelled Oxygen Given Cancelled Sodium (136-145) mmol/L Potassium (3.5-5.1) mmol/L Chloride (98-107) mmol/L Carbon Dioxide (21-32) mmol/L Anion Gap (3-11) BUN (6-23) mg/dl Creatinine (0.6-1.2) mg/dl Est Cr Clr Drug Dosing Est GFR ( Amer) ml/min Est GFR (Non-Af Amer) ml/min BUN/Creatinine Ratio (10-20) Glucose (70-99(Fasting)) mg/dl Lactate 0.9 (0.4-2.0) mmol/L Calcium (8.5-10.1) mg/dl Total Bilirubin (0.2-1.0) mg/dl AST (13-39) U/L ALT (7-52) U/L Alkaline Phosphatase (34-104) U/L Troponin I (0-0.04) ng/ml Total Protein (6.0-8.3) gm/dl Albumin (3.4-5.0) gm/dl Globulin (2.5-4.0) gm/dl Albumin/Globulin Ratio (0.9-2) Procalcitonin 0.38 (0-0.5) ng/ml 08/25/ Range/Units 10:23 WBC (4.8-10.8) K/uL RBC (4.2-5.4) M/uL Hgb (12.0-16.0) g/dL Hct (37-47) % MCV (80-100) fL MCH (25-34) pg MCHC (32-36) g/dL RDW Std Deviation (36.4-46.3) fL RDW Coeff of Janina (11.5-14.5) % Plt Count (130-400) K/uL Immature Gran % (Auto) % Neut % (Auto) % Lymph % (Auto) % [place] % (Auto) % Eos % (Auto) % Baso % (Auto) % Neut # (Auto) (1.4-6.5) K/uL Lymph # (Auto) (1.2-3.4) K/uL [place] # (Auto) (0.11-0.59) K/uL Eos # (Auto) (0-0.5) K/uL Baso # (Auto) (0-0.2) K/uL Immature Gran # (Auto) (0.00-0.02) K/uL Hypersegmented Neuts Dohle Bodies Platelet Estimate (Normal) PT 9.8 INR 0.9 APTT 23.0 PTT Ratio 0.8 ABG pH ABG pCO2 ABG pO2 ABG HCO3 ABG O2 Saturation ABG Base Excess Kimo Test Barometric Pressure Oxygen Given Sodium (136-145) mmol/L Potassium (3.5-5.1) mmol/L Chloride (98-107) mmol/L Carbon Dioxide (21-32) mmol/L Anion Gap (3-11) BUN (6-23) mg/dl Creatinine (0.6-1.2) mg/dl Est Cr Clr Drug Dosing Est GFR ( Amer) ml/min Est GFR (Non-Af Amer) ml/min BUN/Creatinine Ratio (10-20) Glucose (70-99(Fasting)) mg/dl Lactate (0.4-2.0) mmol/L Calcium (8.5-10.1) mg/dl Total Bilirubin (0.2-1.0) mg/dl AST (13-39) U/L ALT (7-52) U/L Alkaline Phosphatase (34-104) U/L Troponin I (0-0.04) ng/ml Total Protein (6.0-8.3) gm/dl Albumin (3.4-5.0) gm/dl Globulin (2.5-4.0) gm/dl Albumin/Globulin Ratio (0.9-2) Procalcitonin (0-0.5) ng/ml Imaging Data Radiologist's Impression: Chest X-Ray 08/25/21 08:06 XR chest 1V portable CLINICAL HISTORY: Dyspnea TECHNIQUE: Single frontal radiograph of the chest was obtained. Comparison: Comparison is made to chest one view 07/12/2021 FINDINGS: Multiple stable surgical devices are seen, unchanged. Cardiomegaly is noted. Justyn nt bibasilar airspace opacities are seen. No evidence of pleural effusion or pneumothorax. IMPRESSION: Faint bibasilar airspace opacities which may represent atelectasis, pneumonia, and/or aspiration. ACT 112: Negative or not required by law. Electronically signed by: Ganesh Sheldon M.D. 08/25/2021 9:49 AM ECG Data Attestation: I personally reviewed and interpreted this ECG as follows: MDM Narrative 61-year-old female presents with increased shortness of breath as well as a productive cough for the past several days. She was noted to be hypoxic on evaluation despite using 2 L of oxygen. She was requiring 4 L of oxygen to maintain saturations around 90%. She was noted to be tachycardic, tachypneic and hypertensive. She is afebrile. Her lung exam reveals bilateral rhonchi as well as some scattered wheezes. Chest x-ray is suggestive of possible bibasilar pneumonia. Her hemoglobin is 8.8. That is baseline. EKG showed a sinus tach at a rate of 1 27. Troponin was mildly elevated although this appears to be chronically elevated and is likely related to demand ischemia. BUN is 71 and creatinine is 3.46. This is above her baseline of 2.5. Procalcitonin was negative. The patient was treated with an albuterol nebulizer treatment for 1 hour. She was given IV cefepime as well as IV Solu-Medrol. She was given some IV fluids. She will be seen by the hospitalist for further inpatient evaluation and care. Impression & Plan Bilateral interstitial pneumonia, Hypoxia Discharge Plan Visit Data Chief Complaint: Shortness of Breath/Dyspnea Stated Complaint: SOB ED Provider: Nolan Rdz Discharge Problem: Bilateral interstitial pneumonia, Hypoxia Patient Disposition: Being Evaluated by Hospitalist Forms Stand Alone Forms: [facility] Prescriptions Prescriptions: No Action pantoprazole [Protonix] 40 mg tablet,delayed release (DR/EC) 40 mg PO DAILY@1200 RF: 0 Domperidone 20 mg PO QID RF: 0 amitriptyline 50 mg tablet 50 mg PO HS RF: 0 tacrolimus 1 mg Capsule 4 mg PO AMHS RF: 0 citalopram 10 mg tablet 10 mg PO .DAILY AT NOON RF: 0 lorazepam 0.5 mg tablet 0.5 mg sublingual BID RF: 0 metoprolol tartrate 50 mg tablet 25 mg PO BID RF: 0 everolimus (immunosuppressive) 0.5 mg Tablet 2 mg PO BID RF: 0 azithromycin 250 mg Tablet 250 mg PO DAILY@1200 RF: 0 potassium chloride 20 mEq tablet,ER particles/crystals 20 meq PO BID RF: 0 acyclovir 400 mg tablet 400 mg PO AMHS RF: 0 hydrocortisone 10 mg tablet 20 mg PO QAM RF: 0 Prevymis 240 mg Tablet 240 mg PO DAILY RF: 0 docusate sodium [Colace] 100 mg Capsule 100 mg PO .DAILY AT NOON RF: 0 azathioprine 50 mg Tablet 50 mg PO QAM RF: 0 sulfamethoxazole-trimethoprim [Bactrim] 400-80 mg tablet 1 tab PO 2XWK RF: 0 hydrocortisone 10 mg tablet 10 mg PO BID RF: 0 Referrals Referrals: Denise Sandoval MD, PhD [Primary Care Provider] -
[2021-08-25] MEDS ORDERED: SODIUM CHLORIDE 0.9% 1000ML 1,000 ML IV SCH (08:15)
[2021-08-25 09:03] LABS: Hematocrit (blood only) 27.1 % (37-47); Hemoglobin 8.8 g/dL (12.0-16.0); Mean Corpuscular Hemoglobin 31.2 pg (25-34); Mean Corpuscular Hgb Conc 32.5 g/dL (32-36); Mean Corpuscular Volume 96.1 fL (80-100); Platelet Count 192 K/uL (130-400); RDW Coefficient of Variation 16.2 % (11.5-14.5); RDW Standard Deviation 57.2 fL (36.4-46.3); Red Blood Count 2.82 M/uL (4.2-5.4); White Blood Count 10.93 K/uL (4.8-10.8)
[2021-08-25 09:10] LABS: Alanine Aminotransferase 10 U/L (7-52); Albumin Globulin Ratio 1.2 (0.9-2); Albumin Level 3.7 gm/dl (3.4-5.0); Alkaline Phosphatase 76 U/L (34-104); Anion Gap 7 (3-11); Aspartate Aminotransferase 25 U/L (13-39); BUN Creatinine Ratio 20.5 (10-20); Bilirubin,Total 0.3 mg/dl (0.2-1.0); Blood Urea Nitrogen 71 mg/dl (6-23); Calcium 10.4 mg/dl (8.5-10.1); Carbon Dioxide 28 mmol/L (21-32); Chloride 97 mmol/L (98-107); Est GFR (African American) 15.5 ml/min; Est GFR (Non-African American) 13.4 ml/min; Glucose 169 mg/dl (70-99(Fasting)); Sodium 132 mmol/L (136-145); Total Protein 6.7 gm/dl (6.0-8.3)
--- NOTE | 2021-08-25 09:50 | XRay Report ---
XR chest 1V portable CLINICAL HISTORY: Dyspnea TECHNIQUE: Single frontal radiograph of the chest was obtained. Comparison: Comparison is made to chest one view 07/12/2021 FINDINGS: Multiple stable surgical devices are seen, unchanged. Cardiomegaly is noted. Faint bibasilar airspace opacities are seen. No evidence of pleural effusion or pneumothorax. IMPRESSION: Faint bibasilar airspace opacities which may represent atelectasis, pneumonia, and/or aspiration. ACT 112: Negative or not required by law. Electronically signed by: Ganesh Sheldon M.D. 08/25/2021 9:49 AM
[2021-08-25 09:51] LABS: Basophils # (auto) 0.04 K/uL (0-0.2); Basophils % (auto) 0.4 %; Dohle Bodies 1+; Eosinophils # (auto) 0.45 K/uL (0-0.5); Eosinophils % (auto) 4.1 %; Immature Granulocytes % (auto) 0.9 %; Lymphocytes # (auto) 1.15 K/uL (1.2-3.4); Lymphocytes % (auto) 10.5 %; Monocytes # (auto) 0.47 K/uL (0.11-0.59); Monocytes % (auto) 4.3 %; Neutrophils # (auto) 8.72 K/uL (1.4-6.5); Neutrophils % (auto) 79.8 %; Platelet Estimate Normal (Normal)
[2021-08-25] MEDS ORDERED: METOPROLOL TARTRATE 25 MG TAB PO STA (10:50)
--- NOTE | 2021-08-25 10:55 | History & Physical Report ---
Date of Service August 25, 2021 Assessment & Plan (1) Acute on chronic respiratory failure with hypoxia: (2) Lung transplant status, bilateral: (3) Bilateral pneumonia: (4) Severe sepsis: (5) Acute on chronic renal failure: (6) Paroxysmal A-fib: Plan: Patient is a 61-year-old female with hx of bilateral lung transplant in 2019 at [facility] with complicated course including difficulty weaning off the ventilator requiring tracheostomy, recurrent pneumonia and airway stenosis with stent in right bronchus intermedius, h/o pulmonary hypertension no longer on medications, paroxysmal atrial fibrillation, CKD III, history chronic nausea and vomiting with G-J tube in place with tube feedings, anemia who presents to ED due shortness of breath and cough x2 days. Per CMS criteria patient meets severe sepsis secondary to tachycardia, tachypnea and evidence of acute on chronic renal failure Source: Bilateral pneumonia Blood cultures pending, culture ordered Patient received IV cefepime in ED Currently receiving IV fluids Acute on chronic respiratory failure with hypoxia Bilateral pneumonia Lung transplant status, bilateral, [facility] 2019 Severe sepsis Admit to PCU IV Zosyn, MRSA screen, if positive will add Vanco Aggressive pulmonary toilet with levalbuterol/ipratropium, flutter valve, incentive spirometry Consider chest PT Sputum culture Continue tacrolimus, everolimus and Prevymis continue azithro, acyclovir, hold bactrim in setting of ROYER, resume when able Discussed with transplant team second officer Dr Alexsander Sharp * Recommendations are to not give IV solumedrol, continue oral hydrocortisone, stress doses if hypotensive * hold tacrolimus and everolimus until troughs come back, evero should be 3-8 and tacro 8-10 She agrees with all other current management - if status changes they will be willing to accept in transfer, she is scheduled for a bronch next monday Call [phone] to reach transplant services or [phone] to reach answering service Primary Transplant Physician is Dr. Altamirano Acute on chronic CKD stage III BUN/creatinine 71 and 3.46 Avoid nephrotoxic agents likely prerenal in setting of poor intake, hypoxia consult nephrology as she is established with them Elevated trop no chest pain, ekg stable cycle, likely in setting of demand ischemia, hypoxia Hyponatremia likely due to poor intake continue IVF monitor Poor PO intake GT in place consult dietary to determine if G tube feedings would be beneficial until pt tolerating PO intake GT flushes ordered Chronic Anemia in setting of chronic disease hgb stable 8.8 monitor DVT ppx: SQ Heparin Dispo: PCU FULL CODE PCP: Karel Pt was seen and examined in collaboration with Dr. Person, please see addendum History of Present Illness Chief Complaint: SOB and cough x 2 days. Primary Care Provider: Karel Govea MD Patient is a 61-year-old female with hx of bilateral lung transplant in 2019 at [facility] with complicated course including difficulty weaning off the ventilator requiring tracheostomy, recurrent pneumonia and airway stenosis with stent in right bronchus intermedius, h/o pulmonary hypertension no longer on medications, paroxysmal atrial fibrillation, CKD III, history chronic nausea and vomiting with G-J tube in place with tube feedings, anemia who presents to ED due shortness of breath and cough x2 days. Symptoms started on Monday. She developed a cough with productive purulent sputum and worsening shortness of breath at rest. At baseline patient uses 2 to 2-1/2 L of oxygen at rest. She was found to be hypoxic this morning in mid 80s. In ED she was requiring 4 and half liters of oxygen. She complains of increasing shortness of breath, wheezing, chest tightness, weakness, poor appetite and overall poor intake. at bedside states he started to feedings with Nepro yesterday due to poor intake. No additional free water flushes. Her last dose of medication was yesterday morning. She denies fever, chills, sweats, lightheadedness, dizziness, chest pain, hemoptysis, vomiting, abdominal pain, change in bowel or urinary habits. She denies any decreased in urination and admits to still making urine. She is scheduled to see [facility] transplant team early next week and undergo bronchoscopy. She was last hospitalized at [facility] 07/12-07/23 secondary to exacerbation of bronchiectasis. In ED patient was hypoxic requiring 4-4 and half liters of oxygen. She met severe sepsis criteria secondary to tachycardia, tachypnea and evidence of acute on chronic CKD. She received hour-long nebulizer treatment, IV cefepime and 125 mg of IV Solu-Medrol Allergies Allergy/AdvReac Type Severity Reaction Status Date / Time glimepiride AdvReac Severe Fainting Verified 07/12/21 12:30 Home Medications Medication Instructions Recorded Confirmed Type pantoprazole 40 mg tablet,delayed 40 mg PO DAILY@1200 01/24/20 08/25/21 History release (Protonix) sulfamethoxazole 400 1 tab PO 2XWK 09/08/20 08/25/21 History mg-trimethoprim 80 mg tablet (Bactrim) Domperidone 20 mg PO QID 10/21/20 08/25/21 History amitriptyline 50 mg tablet 50 mg PO HS 02/09/21 08/25/21 History tacrolimus 1 mg capsule, 4 mg PO AMHS 02/09/21 08/25/21 History immediate-release citalopram 10 mg tablet 10 mg PO .DAILY AT NOON 05/07/21 08/25/21 History everolimus (immunosuppressive) 0.5 2 mg PO BID 05/07/21 08/25/21 History mg tablet lorazepam 0.5 mg tablet 0.5 mg SUBLINGUAL BID 05/07/21 08/25/21 History metoprolol tartrate 50 mg tablet 25 mg PO BID 05/07/21 08/25/21 History azithromycin 250 mg tablet 250 mg PO DAILY@1200 05/18/21 08/25/21 History hydrocortisone 10 mg tablet 10 mg PO BID 07/12/21 08/25/21 History acyclovir 400 mg tablet 400 mg PO AMHS 08/25/21 08/25/21 History azathioprine 50 mg tablet 50 mg PO QAM 08/25/21 08/25/21 History docusate sodium 100 mg capsule 100 mg PO .DAILY AT NOON 08/25/21 08/25/21 History (Colace) hydrocortisone 10 mg tablet 20 mg PO QAM 08/25/21 08/25/21 History letermovir 240 mg tablet (Prevymis) 240 mg PO DAILY 08/25/21 08/25/21 History potassium chloride 20 mEq 20 meq PO BID 08/25/21 08/25/21 History tablet,extended release(part/cryst) Past Med/Surg History Medical History ASCUS of cervix with negative high risk HPV Bronchiectasis following lung transplantation Cholesteatoma of both middle ears Chronic mastoiditis Chronic obstructive pulmonary disease Chronic respiratory failure with hypoxia and hypercapnia Chronic tympanomastoiditis Encounter for mastoidectomy cavity debridement History of actinic keratosis Hypercholesterolemia LGSIL on Pap smear of cervix Osteoporosis Paroxysmal A-fib Postmenopausal Pulmonary emphysema Pulmonary hypertension Surgical History History of colposcopy History of ear surgery Hx of colonoscopy Hx of tonsillectomy Lung transplant status, bilateral 11/11/2019 [facility] Presby S/P cardiac cath S/P dilation and curettage S/P wisdom tooth extraction Family History Mother Adenocarcinoma of lung Osteoporosis Rheumatoid arthritis Lung cancer Myocardial infarction Aunt Breast cancer maternal aunt Grandfather (Paternal) Colorectal cancer Father Lung cancer Denies family history of Ovarian cancer Social History Smoking Status: Former smoker Tobacco Type: Cigarettes Cigarettes Per Day: 1 ppd for 23 years; Second Hand Exposure: No; Hx Alcohol Use: No Hx Substance Use: No Preferred Language: Comoran Communication Ability: Effective 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 Teacher Required: No Beliefs That Will Affect Care: None marital status: Current Living Situation: Spouse Feels Safe at Home: Yes Assistive Devices: Glasses and Oxygen - Continuous Review of Systems Review of Systems: All systems reviewed & are unremarkable except as noted in HPI & below Physical Exam Physical Exam: Constitutional: Chronically ill-appearing female, vitals as above, NAD, sitting up in bed, pleasant, conversing easily Head: Normocephalic, Atraumatic Eyes: PERRL, conjunctivae normal, anicteric sclerae ENMT: external ear and nose normal, oropharynx normal Neck: trachea midline, no thyromegaly normal visual inspection Respiratory: Mildly tachypneic, bilateral coarse breath sounds with wheezing and rhonchi, no rales. Increased insp/exp effort, no accessory muscle use Cardiovascular: Tachycardic rate, regular rhythm, no murmur, no edema Vessels: no JVD or carotid bruit Chest: normal inspection of chest Abdomen: normal bowel sounds, soft, nontender, no hepatosplenomegaly, G-tube in place without surrounding erythema Musculoskeletal: no cyanosis or clubbing, active range of motion x4 Skin: no rashes, warm and dry normal turgor Neurologic: PERRL, EOMI, accommodation nl, no face palsy, no dysarthria CN's II-XI intact bilaterally and moves all extremities Psychiatric: A+Ox3, euthymic affect Lymphatic: no cervical or axillary lymphadenopathy : deferred Results & Data Results & Data ([facility]) Vital Signs (Past 12 Hours) Vital Signs Temp Pulse Pulse Resp BP Pulse Ox 08/25/21 09:30 134 H 37 H 99 08/25/21 09:11 124 H 35 H 158/81 H 100 08/25/21 09:00 123 H 39 H 100 08/25/21 08:49 123 H 36 H 96 08/25/21 08:30 125 H 95 08/25/21 08:08 133 H 35 H 93 08/25/21 07:52 36.4 C L 134 H 28 H 147/98 H 90 Diagnostic Findings Chest X-Ray 08/25/21 08:06 XR chest 1V portable CLINICAL HISTORY: Dyspnea TECHNIQUE: Single frontal radiograph of the chest was obtained. Comparison: Comparison is made to chest one view 07/12/2021 FINDINGS: Multiple stable surgical devices are seen, unchanged. Cardiomegaly is noted. Faint bibasilar airspace opacities are seen. No evidence of pleural effusion or pneumothorax. IMPRESSION: Faint bibasilar airspace opacities which may represent atelectasis, pneumonia, and/or aspiration. ACT 112: Negative or not required by law. Electronically signed by: Ganesh Sheldon M.D. 08/25/2021 9:49 AM Medications Administered Medication List Discontinued Medications Albuterol (Albut/Ipratrop 3mg/0.5mg Neb 3 Ml Vial) 12 ml INH ONE STA Stop: 08/25/21 08:07 Last Admin: 08/25/21 08:46 Dose: 12 ml Documented by: [id number] Sodium Chloride (Nss 1000ml) 1,000 mls @ 999 mls/hr IV .Q1H1M FRANCIE Stop: 08/25/21 09:15 Last Admin: 08/25/21 08:57 Dose: 999 mls/hr Documented by: [id number] Cefepime HCl (Maxipime) 2,000 mg in 20 mls @ 5 mls/min IV NOW STA; Protocol Stop: 08/25/21 08:09 Last Admin: 08/25/21 09:01 Dose: 5 mls/min Documented by: [id number] Methylprednisolone (Methylprednisolone 125 Mg/2 Ml Vial) 125 mg IV NOW STA Stop: 08/25/21 08:07 Last Admin: 08/25/21 09:01 Dose: 125 mg Documented by: [id number] ECG Rate (beats per minute): 127 Rhythm: sinus tachycardia COVID-19 Results Results COVID-19 Adm Lab Results: RBC 2.82 M/uL (4.2-5.4) L 08/25/21 WBC 10.93 K/uL (4.8-10.8) H 08/25/21 Hgb 8.8 g/dL (12.0-16.0) L 08/25/21 Hct 27.1 % (37-47) L 08/25/21 Plt Count 192 K/uL (130-400) 08/25/21 Neutrophils (%) (Auto) 79.8 % 08/25/21 Lymphocytes (%) (Auto) 10.5 % 08/25/21 Monocytes # (Auto) 0.47 K/uL (0.11-0.59) 08/25/21 Eosinophils # (Auto) 0.45 K/uL (0-0.5) 08/25/21 Immature Granulocyte % (Auto) 0.9 % 08/25/21 Neutrophils # (Auto) 8.72 K/uL (1.4-6.5) H 08/25/21 Lymphocytes # (Auto) 1.15 K/uL (1.2-3.4) L 08/25/21 Monocytes # (Auto) 0.47 K/uL (0.11-0.59) 08/25/21 Eosinophils # (Auto) 0.45 K/uL (0-0.5) 08/25/21 Basophils # (Auto) 0.04 K/uL (0-0.2) 08/25/21 Immature Granulocyte # (Auto) 0.10 K/uL (0.00-0.02) H 08/25/21 Hypersegmented Neutrophils 1+ 08/25/21 Dohle Bodies 1+ 08/25/21 Na 132 mmol/L (136-145) L 08/25/21 K 5.0 mmol/L (3.5-5.1) 08/25/21 Cl 97 mmol/L (98-107) L 08/25/21 CO2 28 mmol/L (21-32) 08/25/21 Anion Gap 7 (3-11) 08/25/21 BUN 71 mg/dl (6-23) H 08/25/21 Creatinine 3.46 mg/dl (0.6-1.2) H 08/25/21 BUN/Creatinine Ratio 20.5 (10-20) H 08/25/21 Glucose Level 169 mg/dl (70-99(Fasting)) H 08/25/21 Ca 10.4 mg/dl (8.5-10.1) H 08/25/21 Total Bilirubin 0.3 mg/dl (0.2-1.0) 08/25/21 AST/SGOT 25 U/L (13-39) 08/25/21 ALT/SGPT 10 U/L (7-52) 08/25/21 Alkaline Phosphatase 76 U/L (34-104) 08/25/21 Total Protein 6.7 gm/dl (6.0-8.3) 08/25/21 Albumin 3.7 gm/dl (3.4-5.0) 08/25/21 Globulin 3.0 gm/dl (2.5-4.0) 08/25/21 Albumin/Globulin Ratio 1.2 (0.9-2) 08/25/21 Troponin I 0.07 ng/ml (0-0.04) H* 08/25/21 Procalcitonin 0.38 ng/ml (0-0.5) 08/25/21 PTT 23.0 Seconds (21.0-31.0) 08/25/21 INR 0.9 (0.9-1.1) 08/25/21 COVID-19 PCR Uninterpretable (Negative) 08/25/21 Influenza Virus Type A (PCR) Uninterpretable (Neg) 08/25/21 Influenza Virus Type B (PCR) Uninterpretable (Neg) 08/25/21 SARS-CoV-2, RNA, NAAT NEGATIVE (NEGATIVE) 08/25/21 ABG pH 7.41 (7.35-7.45) 08/25/21 ABG pCO2 44 mmHg (35-46) 08/25/21 ABG pO2 96 mmHg (80-95) H 08/25/21 ABG HCO3 27 mmol/L (19-24) H 08/25/21 ABG O2 Saturation 95.7 % (90-95) H 08/25/21 ABG Base Excess 2.1 mEq/L (-9-1.8) H 08/25/21 Chest X-Ray 08/25/21 Code Status & VTE Plan Code Status Full code VTE Prophylaxis Plan VTE Prophylaxis will be ordered: Yes Supervising Physician Co-Signing Physician Notes Attending addendum: Patient was seen and examined in emergency room She has bilateral implant transplantation on immunosuppressive medications Is been complaining of cough yellowish phlegm with shortness of breath with weakness for the last 7 days Denies any chest pain and/or palpitation She also complains to have occasional diarrhea without any abdominal pain, nausea no vomiting On examination She is moderately shortness of breath at rest She was noted to be tachycardic and tachypneic without any fever Chest-widespread crackles and wheezing bilaterally HeartS1-S2, regular and no murmur appreciated Abdomen-soft, nontender and PEG tube is in place without any inflammation /infection Extremities-no edema 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 No focal sensory or motor deficit appreciated On admission labs, EKG and imaging studies reviewed Has Acute on Chronic respiratory failure with hypoxia likely secondary to pneumonia with history of bilateral lung transplantation on immunosuppressive medication ROYER on CKD likely secondary to dehydration Discussed with the transplant team at [facility] [[email or web address]] Has been started on intravenous Zosyn MRSA screen We will consult roaster supervisor and Product Support Technician for further evaluation and management Agree with assessment and plan as outlined above by Marielos person
[2021-08-25 11:01] LABS: INR 0.9 (0.9-1.1); Partial Thromboplastin Ratio 0.8; Prothrombin Time 9.8 Seconds (9.0-12.0)
[2021-08-25 11:19] LABS: Influenza A virus by PCR Uninterpretable (Neg); Influenza B virus by PCR Uninterpretable (Neg); SARS CoV2 RNA(COVID-19) InHosp Uninterpretable (Negative)
[2021-08-25 11:22] LABS: RSV by PCR Uninterpretable (Neg)
[2021-08-25 11:40] LABS: Allen Test Pos (Pos); Base Excess ABG 2.1 mEq/L (-9-1.8); HCO3 ABG 27 mmol/L (19-24); Oxygen Saturation ABG 95.7 % (90-95); PCO2 ABG 44 mmHg (35-46); PO2 ABG 96 mmHg (80-95); pH ABG 7.41 (7.35-7.45)
--- NOTE | 2021-08-25 12:53 | Consultation Report ---
NEPHROLOGY CONSULTATION NOTE DATE OF SERVICE: 08/25/2021 REASON FOR CONSULTATION: Acute on chronic renal failure in a patient with bilateral lung transplant. HISTORY OF PRESENT ILLNESS: The patient is a 61-year-old female with frequent hospitalization. She has history of bilateral lung transplant in 2019 at [facility] with very complicated course including difficulty weaning off the ventilator, requiring tracheostomy, recurrent pneumonia and airway stenosis. She also has history of pulmonary hypertension, paroxysmal atrial fibrillation, chronic kidney disease with frequent episodes of acute renal failure and chronic failure to thrive. She presented to the hospital because of shortness of breath and cough for the last 2 days. She meets the CMS criteria for severe sepsis, as she does have tachycardia, tachypnea, hypoxia and acute on chronic renal failure. She is being presumptively treated as having pneumonia of complicated type. From renal standpoint, it is very hard to pinpoint her baseline as she is frequently admitted in the hospital. Her most recent creatinine trough would be 1.60 as of 08/09/2021. Since then, it has been going even as an outpatient, it was up to 2.2 followed by 2.6 two days ago. At the time of admission today, it is 3.46. The patient admits not able to eat or drink for the last few days as she was very sick and weak. She claims she is making urine normally without any burning or hematuria. At this time, the patient is getting normal saline. ALLERGY LIST: GLIMEPIRIDE. MEDICATIONS: Home medication list was reviewed in full detail and is as per the reconciliation list. Of special interest to nephrology, she gets Prograf 4 mg in the morning and at bedtime, also gets everolimus 2 mg twice daily, hydrocortisone 10 twice daily, acyclovir 400 daily, azathioprine 50 daily, letermovir 240 mg daily, potassium 20 twice daily, Bactrim 1 tablet 2 times per week, Protonix 40 daily, domperidone, amitriptyline, citalopram, metoprolol, lorazepam. PAST MEDICAL AND SURGICAL HISTORY: Includes cervical cancer, bronchiectasis following lung transplant, chronic mastoiditis, COPD, chronic respiratory failure with hypoxia and hypercapnia. She uses about 2.5 liters of oxygen at home. Pulmonary emphysema, pulmonary hypertension, status post bilateral lung transplant in 2019, status post cardiac catheterization, dilatation and curettage, wisdom teeth extraction, ear surgery, colonoscopy, tonsillectomy. FAMILY HISTORY: Negative for renal disease or dialysis. SOCIAL HISTORY: Former smoker, 1 pack per day for 23 years. She is , currently lives with her spouse. She uses oxygen 2.5 liters continuous. REVIEW OF SYSTEMS: Positive for increasing weakness, poor appetite, worsening nausea, vomiting, shortness of breath, cough and worsening hypoxia at home. Otherwise, 12 systems reviewed and negative. PHYSICAL EXAMINATION: GENERAL: Chronically ill-appearing, frail female who is in respiratory distress. She is awake, alert, oriented x3 and was able to give me a pretty detailed account of her medical problem. VITAL SIGNS: She is currently requiring about 5 liters of oxygen and was able to maintain 98% oxygen. Blood pressure is 158/81, pulse rate 134, temperature 36.4. CHEST: Bilateral crackles, rhonchi and it is very hard to differentiate from a good day and a bad day. CARDIOVASCULAR: S1 and S2 regular and tachycardic. ABDOMEN: Soft, nontender. She has a new PEG tube, which is newly placed and appears to be normal. EXTREMITIES: Show no edema at all. The patient has been losing weight and she appears significantly more cachectic than before. SKIN: Showed no rashes. NEUROLOGIC: Awake, alert and oriented. Normal speech, but slow and weak. Labs --reviewed in detail ASSESSMENT AND PLAN: 1. Acute on CKD 4------Her baseline creatinine is very hard to pinpoint as she gets admitted frequently with pneumonia and every other problem, but just a month ago, she had a creatinine as low as 1.25. I would say anything under 2 is her baseline. Currently, she has a creatinine of 3.46, which is high. She did not have good oral intake for the last few days, so we would assume she has prerenal type acute renal failure and hope that she will get better with the use of IV fluid. However, she was significantly hypoxic for the last few days and tachycardic and possibly hypotensive also. Given how susceptible she is, I will not be surprised if she has hypoxic acute tubular necrosis as the etiology of the acute renal failure. This will be evident in the coming days based on the renal recovery. She has not been eating and drinking, so it is reasonable to give her IV fluid for now. I would use normal saline at 100 mL per hour for at least 1 more day. I will check a UA and a protein to creatinine ratio. If her kidney function does not get better by tomorrow, I would do a renal ultrasound also, although the chance of obstructive uropathy is pretty low. Also, rule out urinary infection given her immunocompromised status. 2. Sepsis, most likely the source is pulmonary as she gets pneumonias very-very frequently. Cover her for infection with broad-spectrum antibiotics, which I will defer to primary team. Make sure to use renally adjusted dose of the antibiotics and if possible, avoid nephrotoxic antibiotics. 3. Lung transplant status. She is on Prograf. I will communicate with the lung transplant team at the [facility] and get their input regarding what to do with her immunosuppressive medication in light of current sepsis. RECOMMENDATIONS: 1. Normal saline at 100 mL per hour. 2. UA and protein to creatinine ratio. 3. Communicate with [facility] regarding immunosuppressive dose in light of current sepsis/pneumonia. 4. Input/output charting. 5. Hemodynamic support to maintain good oxygen, blood pressure and heart rate. 6. If the creatinine continues to get worse, consider renal ultrasound by tomorrow. Thank you very much for the consult. Job ID: [id number]
--- NOTE | 2021-08-25 13:03 | Pulmonary Consultation ---
Date of Consultation August 25, 2021 Assessment & Plan (1) Acute on chronic respiratory failure with hypoxia: (2) Bronchiectasis following lung transplantation: (3) Hypoxia: (4) Lung transplant status, bilateral: (5) Abnormal chest CT: Chest x-ray 08/25/2021 personally reviewed: Portable film, good inspiratory effort, bilateral costophrenic and cardiophrenic angles are clean,Bibasilar alveolar hazy opacities appreciated Note to be continued chest x-ray compared to 07/12/2021 CT chest 07/12/2021 personally reviewed: Faint groundglass opacities appreciated bilaterally Tree-in-bud opacities appreciated bilaterally especially in the upper lobes, bronchiectasis appreciated bilaterally upper and lower lobes RBI stent in place Cardiomegaly No mediastinal lymphadenopathy --Acute on chronic hypoxic respiratory failure Patient baseline is on 12 L oxygen Chest x-ray did not show significant change compared to July 2021 Nasal MRSA negative COVID-19 PCR negative Procalcitonin 0.38 Follow-up sputum culture --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 This is better to be performed at a transplant center given their expertise in the pathology department Please note the above document was generated using voice recognition software. It may contain grammatical, syntax or spelling errors.Any formal questions or concerns about the content, text or information contained within the body of this dictation should be directly addressed to the provider for clarification. History of Present Illness History of Present Illness 61-year-old female coming to the hospital for shortness of breath and cough going on for approximately 4 days. Patient is on 1/2 L oxygen at home. Past medical history: Double lung transplant 11/11/2019, persistent acute rejection following up with [facility] bronchiectasis, history of pulmonary hypertension not on any medications, paroxysmal A. fib, CKD At the time of examination Patient says that she has been having issues bringing up phlegm. She feels congested Does complain of chest pain when she is coughing a lot Denies any fever or chills No headache, no nausea vomiting No dysuria, no diarrhea. No hematuria, no hematochezia. Patient stated she has been compliant with her transplant immunosuppressive medication Social history: 36-owrv-mpcg smoking history, quit approximately 12 years ago. Did not smoke after transplant as well Allergies Allergy/AdvReac Type Severity Reaction Status Date / Time glimepiride AdvReac Severe Fainting Verified 07/12/21 12:30 Home Medications Medication Instructions Recorded Confirmed Type pantoprazole 40 mg tablet,delayed 40 mg PO DAILY@1200 01/24/20 08/25/21 History release (Protonix) sulfamethoxazole 400 1 tab PO 2XWK 09/08/20 08/25/21 History mg-trimethoprim 80 mg tablet (Bactrim) Domperidone 20 mg PO QID 10/21/20 08/25/21 History amitriptyline 50 mg tablet 50 mg PO HS 02/09/21 08/25/21 History tacrolimus 1 mg capsule, 4 mg PO AMHS 02/09/21 08/25/21 History immediate-release citalopram 10 mg tablet 10 mg PO .DAILY AT NOON 05/07/21 08/25/21 History everolimus (immunosuppressive) 0.5 2 mg PO BID 05/07/21 08/25/21 History mg tablet lorazepam 0.5 mg tablet 0.5 mg SUBLINGUAL BID 05/07/21 08/25/21 History metoprolol tartrate 50 mg tablet 25 mg PO BID 05/07/21 08/25/21 History azithromycin 250 mg tablet 250 mg PO DAILY@1200 05/18/21 08/25/21 History hydrocortisone 10 mg tablet 10 mg PO BID 07/12/21 08/25/21 History acyclovir 400 mg tablet 400 mg PO AMHS 08/25/21 08/25/21 History azathioprine 50 mg tablet 50 mg PO QAM 08/25/21 08/25/21 History docusate sodium 100 mg capsule 100 mg PO .DAILY AT NOON 08/25/21 08/25/21 History (Colace) hydrocortisone 10 mg tablet 20 mg PO QAM 08/25/21 08/25/21 History letermovir 240 mg tablet (Prevymis) 480 mg PO DAILY 08/25/21 08/25/21 History potassium chloride 20 mEq 20 meq PO BID 08/25/21 08/25/21 History tablet,extended release(part/cryst) Patient History Medical History ASCUS of cervix with negative high risk HPV Bronchiectasis following lung transplantation Cholesteatoma of both middle ears Chronic mastoiditis Chronic obstructive pulmonary disease Chronic respiratory failure with hypoxia and hypercapnia Chronic tympanomastoiditis Encounter for mastoidectomy cavity debridement History of actinic keratosis Hypercholesterolemia LGSIL on Pap smear of cervix Osteoporosis Paroxysmal A-fib Postmenopausal Pulmonary emphysema Pulmonary hypertension Surgical History History of colposcopy History of ear surgery Hx of colonoscopy Hx of tonsillectomy Lung transplant status, bilateral 11/11/2019 [facility] Presby S/P cardiac cath S/P dilation and curettage S/P wisdom tooth extraction Family History Mother Adenocarcinoma of lung Osteoporosis Rheumatoid arthritis Lung cancer Myocardial infarction Aunt Breast cancer maternal aunt Grandfather (Paternal) Colorectal cancer Father Lung cancer Denies family history of Ovarian cancer Social History Smoking Status: Former smoker Tobacco Type: Cigarettes Cigarettes Per Day: 1 ppd for 23 years; Second Hand Exposure: No; Hx Alcohol Use: No Hx Substance Use: No Preferred Language: Greenlandic Communication Ability: Effective Frame Straightener Required: No Beliefs That Will Affect Care: None marital status: Current Living Situation: Spouse Other Information That Helps Us Care for You: No Feels Safe at Home: Yes Safety Concerns: Feels Safe At This Time Assistive Devices: Cane, Oxygen - Continuous and Walker Review of Systems Review of Systems: All systems reviewed & are unremarkable except as noted in HPI & below Physical Exam Physical Exam: Pantoprazole constitutional: No acute distress HEENT: EOMI, PERRLA Respiratory system: Decreased air entry bilaterally, no wheeze, positive rhonchi bilaterally positive crackles bilaterally CVS: S1-S2 positive, no murmurs or gallops Abdomen: Soft, nontender, nondistended, positive bowel sounds x4, positive PEG Extremities: +2 pulses bilaterally radialis/ dorsalis pedis, no cyanosis, no edema Neuro: Awake alert oriented x3 Psych: Normal mood and affect G/U: No Briggs Skin: no rashes, warm and dry Lymphatic: no cervical or axillary lymphadenopathy Results & Data Results & Data ([facility]) Vital Signs (Past 12 Hours) Vital Signs Temp Pulse Pulse Resp BP Pulse Ox 08/25/21 12:01 127 H 99 08/25/21 11:38 132 H 32 H 133/68 97 08/25/21 11:30 132 H 97 08/25/21 11:00 132 H 26 H 98 08/25/21 10:32 135 H 97 08/25/21 10:00 143 H 30 H 94 08/25/21 09:30 134 H 37 H 99 08/25/21 09:11 124 H 35 H 158/81 H 100 08/25/21 09:00 123 H 39 H 100 08/25/21 08:49 123 H 36 H 96 08/25/21 08:30 125 H 95 08/25/21 08:08 133 H 35 H 93 08/25/21 07:52 36.4 C L 134 H 28 H 147/98 H 90 Laboratory Results 08/25/21 08:30 08/25/21 08:30 PG Care Time/CCT Total # of Minutes Spent Total Time Spent with Patient: Total time spent is greater than 50% in coordination of care (as documented) at patient's floor/unit and/or counseling patient: [place] [address] Inpt Consult Level 5 Patient Type New Diagnoses Acute on chronic respiratory failure with hypoxia J96.21 Bronchiectasis following lung transplantation T86.812; J47.9 Hypoxia R09.02 Lung transplant status, bilateral Z94.[address] R93.89
[2021-08-25] MEDS ORDERED: ACETAMINOPHEN 325 MG TAB PO PRN (13:21)
[2021-08-25] MEDS ORDERED: PIPERACILL/TAZOBAC CONSULT ACTIVE PRN (13:21)
[2021-08-25] MEDS ORDERED: DOMPERIDONE 20 MG PO SCH (13:21)
[2021-08-25] MEDS ORDERED: XOPENEX/ATROVENT 0.63mg/0.5MG NEB COMBO NEB SCH (13:21)
[2021-08-25] MEDS ORDERED: POLYETHYLENE (MIRALAX) 17 GM PACK PO PRN (13:21)
[2021-08-25] MEDS ORDERED: PIPERACILLIN/TAZOBACTAM 3.375 GM in DEXTROSE 5% 100 ML IV STA (13:35)
--- NOTE | 2021-08-25 13:37 | Electrocardiogram Report ---
Test Reason : Blood Pressure : / mmHG Vent. Rate : 127 BPM Atrial Rate : 127 BPM P-R Int : 128 ms QRS Dur : 074 ms QT Int : 314 ms P-R-T Axes : 067 063 095 degrees QTc Int : 456 ms Sinus tachycardia Possible Left atrial enlargement Left ventricular hypertrophy with repolarization abnormality Abnormal ECG When compared with ECG of 16-JUL-2021 10:58, Vent. rate has increased BY [address] now depressed in Lateral leads Confirmed by Ebenezer Holman ([id number]) on 08/25/2021 1:37:03 PM Referred By: ER Confirmed By:Faisal Holman
[2021-08-25 14:05] LABS: Troponin I 0.07 ng/ml (0-0.04)
[2021-08-25] MEDS: BENZONATATE 100 MG CAPSULE PO SCH ×2 (14:21→20:47)
[2021-08-25] MEDS: CITALOPRAM 20 MG TAB PO SCH (14:21)
[2021-08-25] MEDS: AZITHROMYCIN 250 MG TAB PO SCH (14:21)
[2021-08-25] MEDS: DOCUSATE SODIUM 100 MG CAP PO SCH (14:22)
[2021-08-25] MEDS: HYDROCORTISONE 10 MG TAB PO SCH ×2 (14:23→20:48)
[2021-08-25] MEDS: LORazepam 0.5 MG TAB SL SCH ×2 (14:26→20:56)
[2021-08-25] MEDS: SODIUM CHLORIDE 0.9% 1000ML 1,000 ML IV SCH (14:36)
[2021-08-25] MEDS: PANTOprazole 40 MG TAB PO SCH (15:12)
[2021-08-25 15:49] LABS: Appearance Urine Clear (Clear); Bacteria Urine Automated Negative (Negative); Bilirubin Urine Negative (Negative); Blood Urine Negative (Negative); Color Urine Yellow; Glucose Urine UA 2+ (Negative); Ketones Urine Negative (Negative); Leukocyte Esterase Urine Negative (Negative); Nitrite Urine Negative (Negative); Protein Urine Trace (Negative); RBC Urine Automated 0-4 /hpf (0-4); Specific Gravity Urine 1.013 (1.000-1.030); Urobilinogen Urine Negative (Negative)
--- NOTE | 2021-08-25 17:04 | CT Scan Report ---
CT chest diagnostic wo con CT DOSE: 172.71 mGy.cm HISTORY: Worsening shortness of breath. Wheezing. Nausea. TECHNIQUE: Multiaxial CT images of the chest were performed without contrast. A dose lowering techni que was utilized adhering to the principles of ALARA. COMPARISON: Chest CT 07/12/2021. FINDINGS: Limited views the upper abdomen demonstrate a normal liver, spleen, and visualized adrenal glands. There is trace perisplenic fluid noted. There are trace bilateral pleural effusions. No signi ficant pericardial effusion. The heart remains enlarged. There is severe dilatation of the main pulmo nary artery measuring up to 4.3 cm in diameter consistent with pulmonary arterial hypertension. Shasha l esophagus. Stable mildly enlarged distal paraesophageal lymph node measuring 14 x 7 mm. No signific ant hilar lymphadenopathy. There is a mildly enlarged prevascular lymph node, unchanged. This measure s approximately 2.0 x 0.8 cm. There are old, healed bilateral rib fractures, unchanged. No pneumothor ax. Diffuse mild bronchiectasis and bronchial wall thickening is not significantly changed. Right lance nstem bronchus stent is partially occluded. This is also unchanged. Severe stenosis within the proxim al right upper lobe bronchus, unchanged. There is also moderate stenosis at the takeoff of the right middle lobe bronchus. Multiple scattered tree-in-bud and groundglass nodular airspace opacities are a gain seen throughout the lungs. This is most pronounced within the lung bases. Overall, this has slig htly progressed in the interval. Peripheral focal wedge-shaped densities within the lung apices poste riorly remain unchanged. Dominant wedge-shaped consolidation within the right lung apex measures 1.4 cm. IMPRESSION: 1. Postoperative changes consistent with prior double lung transplant. 2. Slight progression of the diffuse scattered tree-in-bud and groundglass nodular airspace opacities seen throughout the lungs. This most pronounced within the lung bases. This is nonspecific but may r epresent an atypical pneumonia, drug reaction, or possibly rejection. 3. Cardiomegaly and pulmonary hypertension are again noted. 4. Trace bilateral pleural effusions. 5. Trace perisplenic fluid.. 6. Severe narrowing within the right proximal bronchi as described above with partial occlusion of th e right mainstem bronchial stent. This remains unchanged. 7. A few stable prominent mediastinal lymph nodes. ACT 112: Negative or not required by law. Electronically signed by: Dirk Evans M.D. 08/25/2021 5:02 PM
[2021-08-25] MEDS: TUBE FEEDING WATER FLUSH GT SCH ×2 (17:20→20:43)
[2021-08-25] MEDS: SODIUM CHLOR 7% 4 ML NEB NEB SCH (19:11)
[2021-08-25] MEDS: IPRATROPIUM BROMIDE NEB SOLN 0.02% 2.5 ML VIAL INH SCH (19:11)
[2021-08-25] MEDS: LEVALBUTEROL HCL 0.63 MG/3 ML NEB NEB SCH (19:11)
[2021-08-25] MEDS ORDERED: PIPERACILLIN/TAZOBACTAM 3.375 GM in DEXTROSE 5% 100 ML IV SCH (20:00)
[2021-08-25] MEDS: NOVASOURCE RENAL 2.0 CAL 1000ML BAG JT SCH (20:43)
[2021-08-25] MEDS: ACYCLOVIR 400 MG TAB PO SCH (20:48)
[2021-08-25] MEDS: METOPROLOL TARTRATE 25 MG TAB PO SCH (20:48)
[2021-08-25] MEDS: guaiFENesin 600 MG TABCR PO SCH (20:49)
[2021-08-25] MEDS: AMITRIPTYLINE HCL 50 MG TAB PO SCH (20:49)
[2021-08-25] MEDS ORDERED: HEPARIN SOD 5,000 UNIT/0.5 ML VIAL SQ SCH (21:00)
[2021-08-25] MEDS: PIPERACILLIN/TAZOBACTAM 3.375 GM in DEXTROSE 5% 100 ML IV SCH (23:36)
[2021-08-26] MEDS: IPRATROPIUM BROMIDE NEB SOLN 0.02% 2.5 ML VIAL INH SCH ×4 (00:07→19:22)
[2021-08-26] MEDS: LEVALBUTEROL HCL 0.63 MG/3 ML NEB NEB SCH ×4 (00:07→19:22)
[2021-08-26] MEDS: TUBE FEEDING WATER FLUSH GT SCH ×6 (00:52→21:40)
[2021-08-26] MEDS: SODIUM CHLORIDE 0.9% 1000ML 1,000 ML IV SCH (01:44)
[2021-08-26 06:47] LABS: Hematocrit (blood only) 19.1 % (37-47); Hemoglobin 6.3 g/dL (12.0-16.0); Mean Corpuscular Hemoglobin 31.8 pg (25-34); Mean Corpuscular Volume 96.5 fL (80-100); Mean Platelet Volume 9.8 fL (7.4-10.4); Platelet Count 117 K/uL (130-400); RDW Coefficient of Variation 16.7 % (11.5-14.5); Red Blood Count 1.98 M/uL (4.2-5.4); White Blood Count 7.29 K/uL (4.8-10.8)
[2021-08-26 06:48] LABS: Basophilic Stippling Occasional; Dohle Bodies 2+; Immature Granulocytes # (auto) 0.07 K/uL (0.00-0.02); Lymphocytes # (auto) 0.62 K/uL (1.2-3.4); Lymphocytes % (auto) 8.5 %; Monocytes % (auto) 4.1 %; Neutrophils % (auto) 86.4 %
--- NOTE | 2021-08-26 06:55 | Communication Note ---
Date of Service: August 26, 2021 Notified by RN of a.m. hemoglobin drop of 6.3 from 8.8 on admission yesterday (08/25) Platelets 117 No overt bleeding as per RN. AP Acute on chronic anemia, hemoglobin drop from baseline Recurrent thrombocytopenia Recheck H&H at 8 AM Hold heparin subcu for now SCDs for DVT prophylaxis Will relay to AM provider.
[2021-08-26 06:56] LABS: Albumin Globulin Ratio 1.2 (0.9-2); Albumin Level 3.3 gm/dl (3.4-5.0); BUN Creatinine Ratio 21.4 (10-20); Bilirubin,Total 0.3 mg/dl (0.2-1.0); Calcium 9.4 mg/dl (8.5-10.1); Est GFR (African American) 23.2 ml/min; Globulin 2.8 gm/dl (2.5-4.0); Magnesium 2.6 mg/dl (1.7-2.4); Potassium 5.6 mmol/L (3.5-5.1); Total Protein 6.1 gm/dl (6.0-8.3)
[2021-08-26] MEDS: SODIUM CHLOR 7% 4 ML NEB NEB SCH ×2 (07:17→19:22)
[2021-08-26] MEDS: [UNRECOGNIZED DRUG - REMARK] SCH (08:28)
[2021-08-26] MEDS: guaiFENesin 600 MG TABCR PO SCH ×2 (08:31→21:15)
[2021-08-26] MEDS: BENZONATATE 100 MG CAPSULE PO SCH ×3 (08:31→21:15)
[2021-08-26] MEDS: azaTHIOprine 50 MG TAB PO SCH (08:31)
[2021-08-26] MEDS: ACYCLOVIR 400 MG TAB PO SCH ×2 (08:31→21:15)
[2021-08-26] MEDS: HYDROCORTISONE 10 MG TAB PO SCH ×3 (08:32→21:15)
[2021-08-26] MEDS: METOPROLOL TARTRATE 25 MG TAB PO SCH ×2 (08:32→21:16)
[2021-08-26] MEDS: PREVYMIS PO SCH (08:34)
[2021-08-26] MEDS: LORazepam 0.5 MG TAB SL SCH ×2 (08:43→21:16)
[2021-08-26 09:17] LABS: Hematocrit (blood only) 18.7 % (37-47)
[2021-08-26] MEDS: PIPERACILLIN/TAZOBACTAM 3.375 GM in DEXTROSE 5% 100 ML IV SCH ×2 (09:46→21:17)
[2021-08-26] MEDS ORDERED: SODIUM CHLORIDE 0.9% 250 ML IV PRN ×2 (10:24→11:05)
--- NOTE | 2021-08-26 10:29 | Hospitalist Progress Note ---
Date of Service August 26, 2021 Assessment & Plan (1) Acute on chronic respiratory failure with hypoxia: (2) Lung transplant status, bilateral: (3) Bilateral pneumonia: (4) Severe sepsis: (5) Acute on chronic renal failure: (6) Paroxysmal A-fib: Plan: Patient is a 61-year-old female with hx of bilateral lung transplant in 2019 at [facility] with complicated course including difficulty weaning off the ventilator requiring tracheostomy, recurrent pneumonia and airway stenosis with stent in right bronchus intermedius, h/o pulmonary hypertension no longer on medications, paroxysmal atrial fibrillation, CKD III, history chronic nausea and vomiting with G-J tube in place with tube feedings, anemia who presents to ED due shortness of breath and cough x2 days. Per CMS criteria patient meets severe sepsis secondary to tachycardia, tachypnea and evidence of acute on chronic renal failure Source: Bilateral pneumonia Blood cultures pending, culture ordered Patient received IV cefepime in ED Currently receiving IV fluids Acute on chronic respiratory failure with hypoxia Bilateral pneumonia Lung transplant status, bilateral, [facility] 2019 Severe sepsis Per CMS criteria patient met severe sepsis secondary to tachycardia, tachypnea and evidence of acute on chronic renal failure CTA chest showed Slight progression of the diffuse scattered tree-in-bud and groundglass nodular airspace opacities seen throughout the lungs. This most pronounced within the lung bases. Received IV cefepime in the ER Pulm on board Azithromycin for atypical coverage Continue with Zosyn, no indication for vancomycin given MRSA is negative Nasal MRSA negative, COVID-19 PCR negative, Procalcitonin 0.38 Continue Aggressive pulmonary toilet with levalbuterol/ipratropium, flutter valve, incentive spirometry, hypertonic saline Blood cx pending Will check sputum cx Continue tacrolimus, everolimus and Prevymis Bactrim on hold in setting of ROYER, resume when able admitting team Discussed with transplant team system configuration specialist Dr Alexsander Sharp * Recommendations are to not give IV solumedrol, continue oral hydrocortisone, stress doses if hypotensive * hold tacrolimus and everolimus until troughs come back, evero should be 3-8 and tacro 8-10 She agrees with all other current management - if status changes they will be willing to accept in transfer, she is scheduled for a bronch next monday Call [phone] to reach transplant services or [phone] to reach answering service Primary Transplant Physician is Dr. Altamirano I called the transplant team today, but waiting for call back Continue monitor closely Might need bronchoscopy with BAL and transbronchial biopsies sooner Case discussed with the system configuration specialist transplant physician Dr. Mcbride that recommended to start the tacrolimus at a lower dose 2mg BID tonight Will continue to hold the everolimus during the infection Dr. Mcbride will be on for the weekend and can be reached at [phone] Acute on chronic CKD stage III BUN/creatinine 71 and 3.46 on admission Creatinine improved to 2.48 today Nephrology on board Received IVF Avoid nephrotoxic agents Continue monitor BMP Elevated trop Mostly demand ischemia in the setting of ROYER and hypoxia trop peaked to 0.09, then trending down to 0.07 Denies any chest pain EKG showed no acute ischemic changes Hyponatremia likely due to poor intake received IVF, Na 133 today Continue monitor BMP Poor PO intake GT in place consult dietary to determine if G tube feedings would be beneficial until pt tolerating PO intake GT flushes ordered Chronic Anemia in setting of chronic disease Anemia of acute blood loss Hgb dropped from 8.8 to 6 Heparin sub on hold No sign of actyive bleeding Will do type and cross and transfuse 1 unit PRBC Blood consent signed Continue monitor H/H Hyperkalemia Potassium 5.6 today patiromer given by Nephro continue monitor BMP DVT ppx: SQ Heparin Dispo: PCU FULL CODE PCP: [facility] Admission and Anticipated Discharge Date Admission Date: August 25, 2021 Subjective Pt was seen and examined for follow up of SOB Lying in bed with no acute distress Pt said that her breathing is a little better today She denies any worsening fatigue or abnormal bleeding her hgb dropped to 6 and she said that she had blood transfusion few months ago I called the transplant team this morning and waiting for call back Denies any chest pain, palpitation, dizziness and fever Review of Systems Review of Systems: All systems reviewed & are unremarkable except as noted in Subjective Physical Exam Physical Exam: General- No acute distress Head- atraumatic Eyes- PERRL, EOMI, ENT- oropharynx clear Neck- supple, no JVD Lungs- + coarse breath sounds with wheezing and rhonchi Heart- +tachycardia, no murmur Abdomen- normal bowel sounds, soft, nontender Extremities- no calf tenderness Neuro- alert, oriented x 3; PERRL, EOMI; no facial palsy; no dysarthria Skin- warm & dry Results & Data Results & Data ([facility]) Vital Signs (Past 12 Hours) Vital Signs Temp Pulse Resp BP BP Pulse Ox 08/26/21 07:19 120 H 20 99 08/26/21 07:10 36.8 C 122 H 19 145/81 H 100 08/26/21 03:13 37.1 C 110 H 18 131/73 100 08/26/21 00:07 74 18 98 08/25/21 23:09 36.8 C 78 18 146/80 H 99
[2021-08-26] MEDS ORDERED: PATIROMER CALCIUM SORBITEX 8.4 GM PACK PO SCH (11:00)
--- NOTE | 2021-08-26 11:28 | Nephrology Progress Note ---
Date of Service August 26, 2021 Assessment & Plan Admission and Anticipated Discharge Date Admission Date: August 25, 2021 Subjective S--feels weak. Hgb dropped a lot but no GI bleeding. PHYSICAL EXAMINATION: GENERAL: Chronically ill-appearing, frail female who is in respiratory distress. She is awake, alert, oriented x3 and was able to give me a pretty detailed account of her medical problem. CHEST: Bilateral crackles, rhonchi and it is very hard to differentiate from a good day and a bad day. CARDIOVASCULAR: S1 and S2 regular and tachycardic. ABDOMEN: Soft, nontender. She has a new PEG tube, which is newly placed and appears to be normal. EXTREMITIES: Show no edema at all. The patient has been losing weight and she appears significantly more cachectic than before. SKIN: Showed no rashes. NEUROLOGIC: Awake, alert and oriented. Normal speech, but slow and weak. Labs --Renal labs better. K 5.6 hgb dropped ASSESSMENT AND PLAN: 1. Acute on CKD 4------Her baseline creatinine is very hard to pinpoint as she gets admitted frequently with pneumonia and every other problem, but just a month ago, she had a creatinine as low as 1.25. I would say anything under 2 is her baseline. renal labs better with iv fluid with 2 liters of urine--good. Still not great PO intake so continue iv fluid one more day at 75/hr.K is high at 5.6--add veltassa daily and do low K diet. getting PRBC for low Hgb. 2. Sepsis, most likely the source is pulmonary as she gets pneumonias very-very frequently. Cover her for infection with broad-spectrum antibiotics, which I will defer to primary team. Make sure to use renally adjusted dose of the antibiotics and if possible, avoid nephrotoxic antibiotics. 3. Lung transplant status--primary team has talked with [facility] team and co- ordinating the transplant drugs dosing. Currently not getting anything pending drug levels. But levels come back very slow in this hospital which will make it hard. bactrim also on hold because of ARF Results & Data ([facility]) Vital Signs (Past 12 Hours) Vital Signs Temp Pulse Resp BP BP Pulse Ox 08/26/21 11:01 36.8 C 118 H 20 135/80 98 08/26/21 07:19 120 H 20 99 08/26/21 07:10 36.8 C 122 H 19 145/81 H 100 08/26/21 03:13 37.1 C 110 H 18 131/73 100 08/26/21 00:07 74 18 98
[2021-08-26] MEDS: AZITHROMYCIN 250 MG TAB PO SCH (11:50)
[2021-08-26] MEDS: CITALOPRAM 20 MG TAB PO SCH (11:50)
[2021-08-26] MEDS: DOCUSATE SODIUM 100 MG CAP PO SCH (11:50)
[2021-08-26] MEDS: PANTOprazole 40 MG TAB PO SCH (11:53)
[2021-08-26 16:10] LABS: Hematocrit (blood only) 25.1 % (37-47); Mean Corpuscular Hemoglobin 30.1 pg (25-34); Mean Corpuscular Hgb Conc 31.9 g/dL (32-36); Mean Corpuscular Volume 94.4 fL (80-100); Mean Platelet Volume 9.7 fL (7.4-10.4); Platelet Count 122 K/uL (130-400); RDW Coefficient of Variation 17.1 % (11.5-14.5); RDW Standard Deviation 58.8 fL (36.4-46.3); Red Blood Count 2.66 M/uL (4.2-5.4); White Blood Count 9.45 K/uL (4.8-10.8)
[2021-08-26] MEDS: PATIROMER CALCIUM SORBITEX 8.4 GM PACK PO SCH (16:42)
--- NOTE | 2021-08-26 17:55 | Pulmonology Progress Note ---
Date of Service August 26, 2021 Assessment & Plan (1) Acute on chronic respiratory failure with hypoxia: (2) Bronchiectasis following lung transplantation: (3) Hypoxia: (4) Lung transplant status, bilateral: (5) Abnormal chest CT: Plan: Chest x-ray 08/25/2021 personally reviewed: Portable film, good inspiratory effort, bilateral costophrenic and cardiophrenic angles are clean,Bibasilar alveolar hazy opacities appreciated Note to be continued chest x-ray compared to 07/12/2021 CT chest 08/25/2021 personally reviewed: Tree-in-bud opacities again appreciated bilaterally, bilateral bronchiectasis especially in the middle and lower lobes The treatment opacities as well as bronchiectasis seem to be getting worse compared to 07/12/[address] No mediastinal lymphadenopathy --Acute on chronic hypoxic respiratory failure Patient baseline is on 12 L oxygen Chest x-ray did not show significant change compared to July 2021 Nasal MRSA negative COVID-19 PCR negative Procalcitonin 0.38 Follow-up sputum culture with AFB --Bronchiectasis 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 Bar I would recommend to be in very close contact with the transplant team as patient might need bronchoscopy with BAL and transbronchial biopsies. This is better to be performed at a transplant center given their expertise in the pathology department No further recommendation from pulmonary perspective. Will sign off. Please call directly with any questions Please note the above document was generated using voice recognition software. It may contain grammatical, syntax or spelling errors.Any formal questions or concerns about the content, text or information contained within the body of this dictation should be directly addressed to the provider for clarification. Admission and Anticipated Discharge Date Admission Date: August 25, 2021 Subjective Patient seen and ABLA bedside. No acute distress, no dressings overnight. Patient says she is feeling better after coming to the hospital She is able to bring up the phlegm She has been using CoughAssist as well as flutter valve. No hemoptysis. Good appetite. Review of Systems Review of Systems: All systems reviewed & are unremarkable except as noted in Subjective Physical Exam Physical Exam: Pantoprazole constitutional: No acute distress HEENT: EOMI, PERRLA Respiratory system: Decreased air entry bilaterally, no wheeze, positive rhonchi bilaterally, positive crackles bilaterally CVS: S1-S2 positive, no murmurs or gallops Abdomen: Soft, nontender, nondistended, positive bowel sounds x4, positive PEG Extremities: +2 pulses bilaterally radialis/ dorsalis pedis, no cyanosis, no edema Neuro: Awake alert oriented x3 Psych: Normal mood and affect G/U: No Briggs Skin: no rashes, warm and dry Lymphatic: no cervical or axillary lymphadenopathy Results & Data Results & Data ([facility]) Vital Signs (Past 12 Hours) Vital Signs Temp Pulse Pulse Resp BP BP BP 08/26/21 16:13 36.8 C 102 H 19 147/83 H 08/26/21 15:00 107 H 08/26/21 14:46 36.7 C 114 H 18 160/83 H 08/26/21 13:46 36.8 C 101 H 20 159/85 H 08/26/21 12:46 36.5 C 103 H 18 128/77 08/26/21 12:32 99 H 20 08/26/21 12:16 36.8 C 102 H 18 125/70 08/26/21 12:01 36.9 C 123 H 18 135/76 08/26/21 11:41 36.7 C 104 H 20 127/71 08/26/21 11:01 36.8 C 118 H 20 135/80 08/26/21 07:19 120 H 20 08/26/21 07:10 36.8 C 122 H 19 145/81 H Pulse Ox 08/26/21 16:13 96 08/26/21 15:00 08/26/21 14:46 98 08/26/21 13:46 98 08/26/21 12:46 99 08/26/21 12:32 99 08/26/21 12:16 96 08/26/21 12:01 96 08/26/21 11:41 98 08/26/21 11:01 98 08/26/21 07:19 99 08/26/21 07:10 100 Laboratory Results 08/26/21 15:47 08/26/21 05:33 PG Care Time/CCT Total # of Minutes Spent Total Time Spent with Patient: Total time spent is greater than 50% in coordination of care (as documented) at patient's floor/unit and/or counseling patient: Coding Level of Care Code 49427 Subseq Hosp Care Lvl 2 Diagnoses Acute on chronic respiratory failure with hypoxia J96.21 Bronchiectasis following lung transplantation T86.812; J47.9 Hypoxia R09.02 Lung transplant status, bilateral Z94.[address] R93.89
[2021-08-26] MEDS: AMITRIPTYLINE HCL 50 MG TAB PO SCH (21:15)
[2021-08-26] MEDS: TACROLIMUS 1 MG CAP PO SCH (21:15)
[2021-08-26] MEDS: NOVASOURCE RENAL 2.0 CAL 1000ML BAG JT SCH (21:40)
[2021-08-27] MEDS: IPRATROPIUM BROMIDE NEB SOLN 0.02% 2.5 ML VIAL INH SCH ×4 (00:27→19:46)
[2021-08-27] MEDS: LEVALBUTEROL HCL 0.63 MG/3 ML NEB NEB SCH ×4 (00:27→19:46)
[2021-08-27] MEDS: TUBE FEEDING WATER FLUSH GT SCH ×6 (02:46→21:18)
[2021-08-27 07:09] LABS: Creatinine Clr Calc Pharmacy 25.7 ml/min; Est GFR (African American) 32.4 ml/min; Est GFR (Non-African American) 27.9 ml/min
[2021-08-27] MEDS: SODIUM CHLOR 7% 4 ML NEB NEB SCH ×2 (07:13→19:48)
[2021-08-27] MEDS: TACROLIMUS 1 MG CAP PO SCH ×2 (08:04→20:35)
[2021-08-27] MEDS: azaTHIOprine 50 MG TAB PO SCH (08:04)
[2021-08-27] MEDS: ACYCLOVIR 400 MG TAB PO SCH ×2 (08:04→20:37)
[2021-08-27] MEDS: guaiFENesin 600 MG TABCR PO SCH ×2 (08:04→20:35)
[2021-08-27] MEDS: PREVYMIS PO SCH (08:05)
[2021-08-27] MEDS: METOPROLOL TARTRATE 25 MG TAB PO SCH ×2 (08:11→20:35)
[2021-08-27] MEDS: [UNRECOGNIZED DRUG - REMARK] SCH (08:50)
[2021-08-27] MEDS: HYDROCORTISONE 10 MG TAB PO SCH ×3 (09:06→20:36)
[2021-08-27] MEDS: LORazepam 0.5 MG TAB SL SCH ×2 (09:06→20:36)
[2021-08-27] MEDS: BENZONATATE 100 MG CAPSULE PO SCH ×3 (09:06→20:35)
[2021-08-27] MEDS: PIPERACILLIN/TAZOBACTAM 3.375 GM in DEXTROSE 5% 100 ML IV SCH ×2 (09:07→21:17)
[2021-08-27 10:00] LABS: Hematocrit (blood only) 24.9 % (37-47); Hemoglobin 7.8 g/dL (12.0-16.0); Mean Corpuscular Hemoglobin 30.5 pg (25-34); Mean Corpuscular Hgb Conc 31.3 g/dL (32-36); Mean Corpuscular Volume 97.3 fL (80-100); Mean Platelet Volume 9.8 fL (7.4-10.4); Platelet Count 106 K/uL (130-400); RDW Coefficient of Variation 18.8 % (11.5-14.5); RDW Standard Deviation 66.4 fL (36.4-46.3); Red Blood Count 2.56 M/uL (4.2-5.4); White Blood Count 6.74 K/uL (4.8-10.8)
--- NOTE | 2021-08-27 10:26 | Nephrology Progress Note ---
Date of Service August 27, 2021 Assessment & Plan Admission and Anticipated Discharge Date Admission Date: August 25, 2021 Subjective S--feels weak. Hgb stable from yesterday. Making urine. PHYSICAL EXAMINATION: GENERAL: Chronically ill-appearing, frail female who is in respiratory distress. She is awake, alert, oriented x3 and was able to give me a pretty detailed account of her medical problem. CHEST: Bilateral crackles, rhonchi and it is very hard to differentiate from a good day and a bad day. CARDIOVASCULAR: S1 and S2 regular and tachycardic. ABDOMEN: Soft, nontender. She has a new PEG tube, which is newly placed and appears to be normal. EXTREMITIES: Show no edema at all. The patient has been losing weight and she appears significantly more cachectic than before. SKIN: Showed no rashes. NEUROLOGIC: Awake, alert and oriented. Normal speech, but slow and weak. Labs --Renal labs better. k normal ASSESSMENT AND PLAN: 1. Acute on CKD 4------Her baseline creatinine is very hard to pinpoint as she gets admitted frequently with pneumonia and every other problem, but just a month ago, she had a creatinine as low as 1.25. I would say anything under 2 is her baseline. renal labs better with iv fluid and urine--good. Still not great PO intake so will also use Free h20 through her NG tube as additional fluid--raise to 100 ml q4. No iv fluid. Normal .K today-- veltassa daily for now and do low K diet. had PRBC for low Hgb. 2. Sepsis, most likely the source is pulmonary as she gets pneumonias very-very frequently. Cover her for infection with broad-spectrum antibiotics, which I will defer to primary team. Make sure to use renally adjusted dose of the antibiotics and if possible, avoid nephrotoxic antibiotics. 3. Lung transplant status--primary team has talked with [facility] team and co- ordinating the transplant drugs dosing. FK level low and on prograf 2 bid. But levels come back very slow in this hospital which will make it hard. bactrim also on hold because of ARF Results & Data ([facility]) Vital Signs (Past 12 Hours) Vital Signs Temp Pulse Pulse Resp BP BP Pulse Ox 08/27/21 07:03 36.9 C 128 H 18 151/90 H 98 08/27/21 06:45 128 H 08/27/21 04:02 36.8 C 127 H 18 149/90 H 99 08/27/21 00:30 124 H 18 96 08/26/21 23:00 127 H 08/26/21 22:54 36.6 C 128 H 23 151/93 H 99
[2021-08-27] MEDS: AZITHROMYCIN 250 MG TAB PO SCH (12:22)
[2021-08-27] MEDS: CITALOPRAM 20 MG TAB PO SCH (12:22)
[2021-08-27] MEDS: DOCUSATE SODIUM 100 MG CAP PO SCH ×2 (12:23→20:36)
[2021-08-27] MEDS: PANTOprazole 40 MG TAB PO SCH (12:23)
[2021-08-27] MEDS ORDERED: PROMETHAZINE HCL 6.25 MG in SODIUM CHLORIDE 0.9% 50 ML IV PRN (15:30)
[2021-08-27] MEDS: PATIROMER CALCIUM SORBITEX 8.4 GM PACK PO SCH (16:20)
--- NOTE | 2021-08-27 18:05 | Hospitalist Progress Note ---
Date of Service August 27, 2021 Assessment & Plan (1) Acute on chronic respiratory failure with hypoxia: (2) Lung transplant status, bilateral: (3) Bilateral pneumonia: (4) Severe sepsis: (5) Acute on chronic renal failure: (6) Paroxysmal A-fib: Plan: Patient is a 61-year-old female with hx of bilateral lung transplant in 2019 at [facility] with complicated course including difficulty weaning off the ventilator requiring tracheostomy, recurrent pneumonia and airway stenosis with stent in right bronchus intermedius, h/o pulmonary hypertension no longer on medications, paroxysmal atrial fibrillation, CKD III, history chronic nausea and vomiting with G-J tube in place with tube feedings, anemia who presents to ED due shortness of breath and cough x2 days. Acute on chronic respiratory failure with hypoxia Bilateral pneumonia Lung transplant status, bilateral, [facility] 2019 Severe sepsis Per CMS criteria patient met severe sepsis secondary to tachycardia, tachypnea and evidence of acute on chronic renal failure CTA chest showed Slight progression of the diffuse scattered tree-in-bud and groundglass nodular airspace opacities seen throughout the lungs. This most pronounced within the lung bases. Received IV cefepime in the ER Pulm on board Azithromycin for atypical coverage Continue with Zosyn, no indication for vancomycin given MRSA is negative Nasal MRSA negative, COVID-19 PCR negative, Procalcitonin 0.38 Continue Aggressive pulmonary toilet with levalbuterol/ipratropium, flutter valve, incentive spirometry, hypertonic saline Blood cx no grrowth Continue tto hold everolimus and Prevymis Bactrim on hold in setting of ROYER, resume when able admitting team Discussed with transplant team iron molder helper Dr Alexsander Sharp * Recommendations are to not give IV solumedrol, continue oral hydrocortisone, stress doses if hypotensive * hold tacrolimus and everolimus until troughs come back, evero should be 3-8 and tacro 8-10 She agrees with all other current management - if status changes they will be willing to accept in transfer, she is scheduled for a bronch next monday Call [phone] to reach transplant services or [phone] to reach answering service Primary Transplant Physician is Dr. Altamirano I called the transplant team today, but waiting for call back Continue monitor closely Might need bronchoscopy with BAL and transbronchial biopsies sooner Case discussed with the iron molder helper transplant physician Dr. Mcbride that recommended to start the tacrolimus at a lower dose 2mg BID tonight Will continue to hold the everolimus during the infection Dr. Mcbride will be on for the weekend and can be reached at [phone] Will consider to resume Bactrim since creatinine back to baseline Acute on chronic CKD stage III BUN/creatinine 71 and 3.46 on admission Creatinine improved to 1.88 today Nephrology on board IVF discontinued Avoid nephrotoxic agents Continue monitor BMP Elevated trop Mostly demand ischemia in the setting of ROYER and hypoxia trop peaked to 0.09, then trending down to 0.07 Denies any chest pain EKG showed no acute ischemic changes Hyponatremia likely due to poor intake received IVF, Na 133 Continue monitor BMP Poor PO intake GT in place consult dietary to determine if G tube feedings would be beneficial until pt tolerating PO intake GT flushes ordered Chronic Anemia in setting of chronic disease Anemia of acute blood loss Hgb dropped from 8.8 to 6 S/P 1 unit PRBC on 08/26 Hgb 7.8 today Continue to hold Heparin sub No sign of active bleeding Continue monitor CBC Hyperkalemia Potassium 4.8 today Currently on patiromer given by Nephro, will d/c tomorrow continue monitor BMP DVT ppx: SQ Heparin Dispo: PCU FULL CODE PCP: Karel Admission and Anticipated Discharge Date Admission Date: August 25, 2021 Subjective Pt was seen and examined for follow up of SOB Lying in bed with no acute distress Her breathing feels much better today She denies any worsening fatigue or abnormal bleeding Denies any chest pain, palpitation, dizziness and fever Review of Systems Review of Systems: All systems reviewed & are unremarkable except as noted in Subjective Physical Exam Physical Exam: General- No acute distress Head- atraumatic Eyes- PERRL, EOMI, ENT- oropharynx clear Neck- supple, no JVD Lungs- + coarse breath sounds with wheezing and rhonchi Heart- +tachycardia, no murmur Abdomen- normal bowel sounds, soft, nontender Extremities- no calf tenderness Neuro- alert, oriented x 3; PERRL, EOMI; no facial palsy; no dysarthria Skin- warm & dry Results & Data Results & Data ([facility]) Vital Signs (Past 12 Hours) Vital Signs Temp Pulse Pulse Resp BP BP Pulse Ox 08/27/21 15:20 36.9 C 97 H 19 162/92 H 98 08/27/21 14:19 117 H 08/27/21 13:20 95 H 19 97 08/27/21 11:29 36.9 C 107 H 18 153/91 H 96 08/27/21 07:03 36.9 C 128 H 18 151/90 H 98 08/27/21 06:45 128 H
[2021-08-27] MEDS: AMITRIPTYLINE HCL 50 MG TAB PO SCH (20:36)
[2021-08-27] MEDS: NOVASOURCE RENAL 2.0 CAL 1000ML BAG JT SCH (21:18)
[2021-08-28] MEDS: TUBE FEEDING WATER FLUSH GT SCH ×7 (00:05→23:36)
[2021-08-28] MEDS: LEVALBUTEROL HCL 0.63 MG/3 ML NEB NEB SCH ×4 (01:06→19:29)
[2021-08-28] MEDS: IPRATROPIUM BROMIDE NEB SOLN 0.02% 2.5 ML VIAL INH SCH ×4 (01:06→19:29)
[2021-08-28 06:31] LABS: Hemoglobin 8.9 g/dL (12.0-16.0); Mean Corpuscular Hemoglobin 30.8 pg (25-34); Mean Corpuscular Hgb Conc 31.8 g/dL (32-36); Mean Corpuscular Volume 96.9 fL (80-100); Mean Platelet Volume 10.2 fL (7.4-10.4); Platelet Count 104 K/uL (130-400); RDW Coefficient of Variation 17.7 % (11.5-14.5); RDW Standard Deviation 62.4 fL (36.4-46.3); Red Blood Count 2.89 M/uL (4.2-5.4); White Blood Count 6.35 K/uL (4.8-10.8)
[2021-08-28 07:00] LABS: BUN Creatinine Ratio 23.7 (10-20); Calcium 9.6 mg/dl (8.5-10.1); Creatinine Clr Calc Pharmacy 25.7 ml/min; Est GFR (Non-African American) 27.6 ml/min; Potassium 4.2 mmol/L (3.5-5.1)
[2021-08-28] MEDS: SODIUM CHLOR 7% 4 ML NEB NEB SCH ×2 (07:20→19:29)
[2021-08-28] MEDS: [UNRECOGNIZED DRUG - REMARK] SCH (08:20)
[2021-08-28] MEDS: ACYCLOVIR 400 MG TAB PO SCH ×2 (08:21→20:33)
[2021-08-28] MEDS: azaTHIOprine 50 MG TAB PO SCH (08:22)
[2021-08-28] MEDS: guaiFENesin 600 MG TABCR PO SCH ×2 (08:22→20:33)
[2021-08-28] MEDS: HYDROCORTISONE 10 MG TAB PO SCH ×3 (08:23→20:34)
[2021-08-28] MEDS: LORazepam 0.5 MG TAB SL SCH ×2 (08:23→20:37)
[2021-08-28] MEDS: METOPROLOL TARTRATE 25 MG TAB PO SCH ×2 (08:24→20:34)
[2021-08-28] MEDS: PREVYMIS PO SCH (08:24)
[2021-08-28] MEDS: TACROLIMUS 1 MG CAP PO SCH ×2 (08:24→20:34)
[2021-08-28] MEDS: BENZONATATE 100 MG CAPSULE PO SCH ×3 (08:26→20:34)
[2021-08-28] MEDS: PIPERACILLIN/TAZOBACTAM 3.375 GM in DEXTROSE 5% 100 ML IV SCH ×2 (09:56→17:30)
[2021-08-28] MEDS: AZITHROMYCIN 250 MG TAB PO SCH (11:43)
[2021-08-28] MEDS: CITALOPRAM 20 MG TAB PO SCH (11:43)
[2021-08-28] MEDS: PANTOprazole 40 MG TAB PO SCH (11:44)
[2021-08-28] MEDS: DOCUSATE SODIUM 100 MG CAP PO SCH (11:44)
[2021-08-28] MEDS: PATIROMER CALCIUM SORBITEX 8.4 GM PACK PO SCH (16:27)
--- NOTE | 2021-08-28 18:19 | Nephrology Progress Note ---
Date of Service August 28, 2021 Assessment & Plan (1) Acute on chronic renal failure: Plan: Nonoliguric stage I ROYER on CKD 4 with exceptionally labile baseline creatinine approximately 2 with creatinine currently plateaued at about 2. in this chronically ill and malnourished patient, renal function will actually be worse than creatinine or estimated GFR suggest. Ongoing poor p.o. intake. Issues with hyperkalemia and hypovolemic hyponatremia this admission Agree with nonrenal/heart healthy diet Continue free water flushes 100 mL every 4 hours Daily basic metabolic panel Will stop Veltassa starting tomorrow and observe: Has received daily since August 26 -will need neph f/u w/ me after d/c in CKD clinic (2) Lung transplant status, bilateral: Plan: Tacro dosing managed by [facility] transplant; pulmonary aware of pt in house as well; if bronch needed procedure to be done at [facility] Admission and Anticipated Discharge Date Admission Date: August 25, 2021 Subjective No interval clinical events. Seen at approximately 4:45 PM with family at bedside. Patient eating tomato soup with bread. Complains of uncontrolled pulmonary secretions. Feels her breathing is at baseline however. No voiding concerns. No edema Review of Systems Review of Systems: All systems reviewed & are unremarkable except as noted in Subjective Physical Exam Constitutional: well developed, + thin, + frail appearing and cooperative; no acute distress Eyes: EOM intact bilaterally ENMT: Ears: no external ear abnormality Nose: no external nose abnormality Mouth: + dry oral mucous membranes Neck: no nuchal rigidity Respiratory: normal respiratory effort Auscultation: + diminished lung sounds and + rhonchi (Diffusely throughout posterior lung freitas) Cardiovascular: Rate/Rhythm: + tachycardic Heart Sounds: normal S1 and normal S2 Extremities: + edema (Trace bilateral ankle) Gastrointestinal (Abdomen): Inspection/Auscultation: normal bowel sounds Percussion/Palpation: abdomen soft (Feeding tube present and tube feeds ru nning); abdomen nontender Musculoskeletal: Extremities: strength 5/5 throughout Skin: no rashes, warm and dry Neurologic: dumont, fluent speech, no tremor Psychiatric: Orientation: oriented x 3 Speech: normal rate/rhythm/volume of speech Genitourinary: no hawthorne Results & Data ([facility]) Vital Signs (Past 12 Hours) Vital Signs Temp Pulse Resp BP Pulse Ox 08/28/21 16:00 37.1 C 91 H 18 146/83 H 95 08/28/21 14:11 100 H 20 98 08/28/21 12:00 36.9 C 112 H 18 94 08/28/21 08:00 36.8 C 136 H 18 134/79 97 08/28/21 07:33 105 H 20 95 Laboratory Results 08/28/21 05:40 08/28/21 05:40
[2021-08-28] MEDS: AMITRIPTYLINE HCL 50 MG TAB PO SCH (20:34)
[2021-08-28] MEDS: NOVASOURCE RENAL 2.0 CAL 1000ML BAG JT SCH (21:05)
--- NOTE | 2021-08-28 22:14 | Hospitalist Progress Note ---
Date of Service August 28, 2021 Assessment & Plan (1) Acute on chronic respiratory failure with hypoxia: (2) Lung transplant status, bilateral: (3) Bilateral pneumonia: (4) Severe sepsis: (5) Acute on chronic renal failure: (6) Paroxysmal A-fib: Plan: Patient is a 61-year-old female with hx of bilateral lung transplant in 2019 at [facility] with complicated course including difficulty weaning off the ventilator requiring tracheostomy, recurrent pneumonia and airway stenosis with stent in right bronchus intermedius, h/o pulmonary hypertension no longer on medications, paroxysmal atrial fibrillation, CKD III, history chronic nausea and vomiting with G-J tube in place with tube feedings, anemia who presents to ED due shortness of breath and cough x2 days. Acute on chronic respiratory failure with hypoxia Bilateral pneumonia Lung transplant status, bilateral, [facility] 2019 Severe sepsis Per CMS criteria patient met severe sepsis secondary to tachycardia, tachypnea and evidence of acute on chronic renal failure CTA chest showed Slight progression of the diffuse scattered tree-in-bud and groundglass nodular airspace opacities seen throughout the lungs. This most pronounced within the lung bases. Received IV cefepime in the ER Pulm on board Azithromycin for atypical coverage Continue with Zosyn, no indication for vancomycin given MRSA is negative Nasal MRSA negative, COVID-19 PCR negative, Procalcitonin 0.38 Continue Aggressive pulmonary toilet with levalbuterol/ipratropium, flutter valve, incentive spirometry, hypertonic saline Blood cx no grrowth Continue tto hold everolimus and Prevymis Bactrim on hold in setting of ROYER, resume when able admitting team Discussed with transplant team communications lead Dr Alexsander Sharp * Recommendations are to not give IV solumedrol, continue oral hydrocortisone, stress doses if hypotensive * hold tacrolimus and everolimus until troughs come back, evero should be 3-8 and tacro 8-10 She agrees with all other current management - if status changes they will be willing to accept in transfer, she is scheduled for a bronch next monday Call [phone] to reach transplant services or [phone] to reach answering service Primary Transplant Physician is Dr. Altamirano I called the transplant team today, but waiting for call back Continue monitor closely Might need bronchoscopy with BAL and transbronchial biopsies sooner Case discussed with the communications lead transplant physician Dr. Mcbride that recommended to start the tacrolimus at a lower dose 2mg BID tonight Will continue to hold the everolimus during the infection Dr. Mcbride will be on for the weekend and can be reached at [phone] Will resume Bactrim since creatinine back to baseline ( she takes bactrim on Monday and ) Acute on chronic CKD stage III BUN/creatinine 71 and 3.46 on admission Creatinine 1.9 today at baseline Nephrology on board IVF discontinued Avoid nephrotoxic agents Continue monitor BMP Elevated trop Mostly demand ischemia in the setting of ROYER and hypoxia trop peaked to 0.09, then trending down to 0.07 Denies any chest pain EKG showed no acute ischemic changes Hyponatremia likely due to poor intake received IVF, Na 133 Continue monitor BMP Poor PO intake GT in place consult dietary to determine if G tube feedings would be beneficial until pt t olerating PO intake GT flushes ordered Chronic Anemia in setting of chronic disease Anemia of acute blood loss Hgb dropped from 8.8 to 6 S/P 1 unit PRBC on 08/26 Hgb 8.9 today Continue to hold Heparin sub No sign of active bleeding Continue monitor CBC Hyperkalemia Potassium 4.8 today Currently on patiromer given by Nephro, will d/c tomorrow continue monitor BMP DVT ppx: SQ Heparin Dispo: PCU FULL CODE PCP: Karel Admission and Anticipated Discharge Date Admission Date: August 25, 2021 Subjective Pt was seen and examined for follow up of SOB Lying in bed with no acute distress Continue to have a hard time to bring the phlegm u Her breathing feels much better today She denies any worsening fatigue or abnormal bleeding Denies any chest pain, palpitation, dizziness and fever Review of Systems Review of Systems: All systems reviewed & are unremarkable except as noted in Subjective Physical Exam Physical Exam: General- No acute distress Head- atraumatic Eyes- PERRL, EOMI, ENT- oropharynx clear Neck- supple, no JVD Lungs- + coarse breath sounds with wheezing and rhonchi Heart- +tachycardia, no murmur Abdomen- normal bowel sounds, soft, nontender Extremities- no calf tenderness Neuro- alert, oriented x 3; PERRL, EOMI; no facial palsy; no dysarthria Skin- warm & dry Results & Data Results & Data ([facility]) Vital Signs (Past 12 Hours) Vital Signs Temp Pulse Resp BP Pulse Ox 08/28/21 19:32 87 15 98 08/28/21 19:09 36.9 C 104 H 16 162/95 H 98 08/28/21 16:00 37.1 C 91 H 18 146/83 H 95 08/28/21 14:11 100 H 20 98 08/28/21 12:00 36.9 C 112 H 18 94
[2021-08-29] MEDS: LEVALBUTEROL HCL 0.63 MG/3 ML NEB NEB SCH ×4 (01:22→19:42)
[2021-08-29] MEDS: IPRATROPIUM BROMIDE NEB SOLN 0.02% 2.5 ML VIAL INH SCH ×4 (01:22→19:42)
[2021-08-29] MEDS: PIPERACILLIN/TAZOBACTAM 3.375 GM in DEXTROSE 5% 100 ML IV SCH ×3 (01:32→17:24)
[2021-08-29] MEDS: TUBE FEEDING WATER FLUSH GT SCH ×6 (04:44→23:07)
[2021-08-29] MEDS: SODIUM CHLOR 7% 4 ML NEB NEB SCH ×2 (07:20→19:42)
[2021-08-29 07:48] LABS: BUN Creatinine Ratio 30.5 (10-20); Calcium 9.9 mg/dl (8.5-10.1); Creatinine Clr Calc Pharmacy 32.4 ml/min; Est GFR (African American) 42.2 ml/min; Est GFR (Non-African American) 36.4 ml/min; Potassium 4.2 mmol/L (3.5-5.1)
[2021-08-29] MEDS: [UNRECOGNIZED DRUG - REMARK] SCH (08:12)
[2021-08-29] MEDS: ACYCLOVIR 400 MG TAB PO SCH ×2 (08:13→21:03)
[2021-08-29] MEDS: azaTHIOprine 50 MG TAB PO SCH (08:13)
[2021-08-29] MEDS: BENZONATATE 100 MG CAPSULE PO SCH ×3 (08:14→21:03)
[2021-08-29] MEDS: guaiFENesin 600 MG TABCR PO SCH ×2 (08:14→21:02)
[2021-08-29] MEDS: LORazepam 0.5 MG TAB SL SCH ×2 (08:14→21:06)
[2021-08-29] MEDS: HYDROCORTISONE 10 MG TAB PO SCH ×3 (08:14→21:02)
[2021-08-29] MEDS: PREVYMIS PO SCH (08:15)
[2021-08-29] MEDS: TACROLIMUS 1 MG CAP PO SCH ×2 (08:15→21:02)
[2021-08-29] MEDS: METOPROLOL TARTRATE 25 MG TAB PO SCH ×2 (08:15→21:04)
[2021-08-29] MEDS: AZITHROMYCIN 250 MG TAB PO SCH (11:31)
[2021-08-29] MEDS: CITALOPRAM 20 MG TAB PO SCH (11:32)
[2021-08-29] MEDS: PANTOprazole 40 MG TAB PO SCH (11:34)
[2021-08-29] MEDS: DOCUSATE SODIUM 100 MG CAP PO SCH (11:34)
--- NOTE | 2021-08-29 14:12 | Nephrology Progress Note ---
Date of Service August 29, 2021 Assessment & Plan (1) Acute on chronic renal failure: Plan: Nonoliguric stage I ROYER on CKD 4 with exceptionally labile baseline creatinine approximately 2 with creatinine currently improved to 1.5 today.. in this chronically ill and malnourished patient, renal function will actually be worse than creatinine or estimated GFR suggest. Ongoing poor p.o. intake. Issues with hyperkalemia and hypovolemic hyponatremia this admission Agree with nonrenal/heart healthy diet Continue free water flushes 100 mL every 4 hours Daily basic metabolic panel stopped Veltassa (last dose 08/28) and observe: received daily August 26 WILL SIGN OFF; pls call if further ? -needs hospital d/c appt 2-4 wks after d/c w/ me -needs bmp and hgb to be ordered as off site lab by [facility] Nephro RN -immunusuppression as per [facility] lung transplant team -d/c on potassium supplement 20 mEq DAILY, not bid as prior to admission, UNLESS K running consistently > 4 in house while back on bactrim -will need neph f/u w/ me after d/c in CKD clinic (2) Lung transplant status, bilateral: Plan: Tacro dosing managed by [facility] transplant; pulmonary aware of pt in house as well; if bronch needed procedure to be done at [facility] >>OK at this point to resume bactrim per [facility] recs Admission and Anticipated Discharge Date Admission Date: August 25, 2021 Subjective no interval events. still occasional chest tightness at times (was having intermittently SHANK BONER as well). taking minimal po. denies worsening breathing or voiding concerns. Review of Systems Review of Systems: All systems reviewed & are unremarkable except as noted in Subjective Physical Exam Constitutional: well developed, + thin, + frail appearing and cooperative; no acute distress Eyes: EOM intact bilaterally ENMT: Ears: no external ear abnormality Nose: no external nose abnormality Mouth: + dry oral mucous membranes Neck: no nuchal rigidity Respiratory: normal respiratory effort Auscultation: + diminished lung sounds and + rhonchi (Diffusely throughout posterior lung freitas) Cardiovascular: Rate/Rhythm: + tachycardic Heart Sounds: normal S1 and normal S2 Extremities: + edema (Trace bilateral ankle) Gastrointestinal (Abdomen): Inspection/Auscultation: normal bowel sounds Percussion/Palpation: abdomen soft (Feeding tube present); abdomen nontender Musculoskeletal: Extremities: strength 5/5 throughout Skin: no rashes, warm and dry Neurologic: dumont, fluent speech, ? slight confusion today; no obvious tremor Psychiatric: Orientation: oriented to person and oriented to place Speech: normal rate/rhythm/volume of speech Results & Data ([facility]) Vital Signs (Past 12 Hours) Vital Signs Temp Pulse Resp BP Pulse Ox 08/29/21 11:48 36.6 C 102 H 19 147/83 H 100 08/29/21 07:28 36.9 C 125 H 20 144/90 H 97 08/29/21 07:20 76 18 95 08/29/21 03:51 36.7 C 130 H 18 144/83 H 98 Laboratory Results 08/28/21 05:40 08/29/21 06:43
[2021-08-29] MEDS: PATIROMER CALCIUM SORBITEX 8.4 GM PACK PO SCH (16:08)
--- NOTE | 2021-08-29 16:51 | Hospitalist Progress Note ---
Date of Service August 29, 2021 Assessment & Plan (1) Acute on chronic respiratory failure with hypoxia: (2) Lung transplant status, bilateral: (3) Bilateral pneumonia: (4) Severe sepsis: (5) Acute on chronic renal failure: (6) Paroxysmal A-fib: Plan: Patient is a 61-year-old female with hx of bilateral lung transplant in 2019 at [facility] with complicated course including difficulty weaning off the ventilator requiring tracheostomy, recurrent pneumonia and airway stenosis with stent in right bronchus intermedius, h/o pulmonary hypertension no longer on medications, paroxysmal atrial fibrillation, CKD III, history chronic nausea and vomiting with G-J tube in place with tube feedings, anemia who presents to ED due shortness of breath and cough x2 days. Acute on chronic respiratory failure with hypoxia Bilateral pneumonia Lung transplant status, bilateral, [facility] 2019 Severe sepsis Per CMS criteria patient met severe sepsis secondary to tachycardia, tachypnea and evidence of acute on chronic renal failure CTA chest showed Slight progression of the diffuse scattered tree-in-bud and groundglass nodular airspace opacities seen throughout the lungs. This most pronounced within the lung bases. Received IV cefepime in the ER Pulm on board Azithromycin for atypical coverage Continue with Zosyn, no indication for vancomycin given MRSA is negative Nasal MRSA negative, COVID-19 PCR negative, Procalcitonin 0.38 Continue Aggressive pulmonary toilet with levalbuterol/ipratropium, flutter valve, incentive spirometry, hypertonic saline Blood cx no grrowth Continue tto hold everolimus and Prevymis Bactrim on hold in setting of ROYER, resume when able admitting team Discussed with transplant team consumer experience consultant Dr Alexsander Sharp * Recommendations are to not give IV solumedrol, continue oral hydrocortisone, stress doses if hypotensive * hold tacrolimus and everolimus until troughs come back, evero should be 3-8 and tacro 8-10 She agrees with all other current management - if status changes they will be willing to accept in transfer, she is scheduled for a bronch next monday Call [phone] to reach transplant services or [phone] to reach answering service Primary Transplant Physician is Dr. Altamirano I called the transplant team today, but waiting for call back Continue monitor closely Might need bronchoscopy with BAL and transbronchial biopsies sooner Tacrolimus level 4.6 and Everolimus level 2 Case discussed transplant physician Dr. Mcbride today that recommended increased the tacrolimus to 3mg BID starting tonight Continue to hold the everolimus during the infection Dr. Mcbride will be on for the weekend and can be reached at [phone] Will resume bactrim 400/80 tomorrow ( Comfirmed with transplant team, she takes bactrim on Monday and ) Acute on chronic CKD stage III BUN/creatinine 71 and 3.46 on admission Creatinine 1.5 today at baseline Nephrology on board IVF discontinued Avoid nephrotoxic agents Continue monitor BMP Elevated trop Mostly demand ischemia in the setting of ROYER and hypoxia trop peaked to 0.09, then trending down to 0.07 Denies any chest pain EKG showed no acute ischemic changes Hyponatremia likely due to poor intake received IVF, Na 135 today Continue monitor BMP Poor PO intake GT in place consult dietary to determine if G tube feedings would be beneficial until pt tolerating PO intake GT flushes ordered Chronic Anemia in setting of chronic disease Anemia of acute blood loss Hgb dropped from 8.8 to 6 S/P 1 unit PRBC on 08/26 Hgb 8.9 Continue to hold Heparin sub No sign of active bleeding Continue monitor CBC Hyperkalemia Potassium 4.2 today Received patiromer given by Nephro, discontinued today continue monitor BMP DVT ppx: SQ Heparin Dispo: PCU FULL CODE PCP: Karel Admission and Anticipated Discharge Date Admission Date: August 25, 2021 Subjective Pt was seen and examined for follow up of SOB Lying in bed with no acute distress with at bedside She said that she does not cough much Her breathing continues to improves Denies any chest pain, palpitation, dizziness and fever Review of Systems Review of Systems: All systems reviewed & are unremarkable except as noted in Subjective Physical Exam Physical Exam: General- No acute distress Head- atraumatic Eyes- PERRL, EOMI, ENT- oropharynx clear Neck- supple, no JVD Lungs- + coarse breath sounds with wheezing and rhonchi Heart- +tachycardia, no murmur Abdomen- normal bowel sounds, soft, nontender Extremities- no calf tenderness Neuro- alert, oriented x 3; PERRL, EOMI; no facial palsy; no dysarthria Skin- warm & dry Results & Data Results & Data ([facility]) Vital Signs (Past 12 Hours) Vital Signs Temp Pulse Resp BP Pulse Ox 08/29/21 16:00 36.8 C 89 20 146/73 H 100 08/29/21 11:48 36.6 C 102 H 19 147/83 H 100 08/29/21 07:28 36.9 C 125 H 20 144/90 H 97 08/29/21 07:20 76 18 95
[2021-08-29] MEDS ORDERED: Nursing to Pharmacy Communication SCH (17:45)
[2021-08-29] MEDS: AMITRIPTYLINE HCL 50 MG TAB PO SCH (21:03)
[2021-08-29] MEDS: NOVASOURCE RENAL 2.0 CAL 1000ML BAG JT SCH (21:20)
[2021-08-30] MEDS: LEVALBUTEROL HCL 0.63 MG/3 ML NEB NEB SCH ×4 (02:37→19:28)
[2021-08-30] MEDS: IPRATROPIUM BROMIDE NEB SOLN 0.02% 2.5 ML VIAL INH SCH ×4 (02:37→19:28)
[2021-08-30] MEDS: PIPERACILLIN/TAZOBACTAM 3.375 GM in DEXTROSE 5% 100 ML IV SCH ×3 (02:46→17:40)
[2021-08-30] MEDS: TUBE FEEDING WATER FLUSH GT SCH ×6 (04:32→23:40)
[2021-08-30] MEDS: [UNRECOGNIZED DRUG - REMARK] SCH (05:50)
[2021-08-30] MEDS: SODIUM CHLOR 7% 4 ML NEB NEB SCH ×2 (07:06→19:28)
[2021-08-30] MEDS: azaTHIOprine 50 MG TAB PO SCH (08:26)
[2021-08-30] MEDS: BENZONATATE 100 MG CAPSULE PO SCH ×3 (08:26→20:33)
[2021-08-30] MEDS: ACYCLOVIR 400 MG TAB PO SCH ×2 (08:26→20:34)
[2021-08-30] MEDS: HYDROCORTISONE 10 MG TAB PO SCH ×3 (08:27→20:32)
[2021-08-30] MEDS: guaiFENesin 600 MG TABCR PO SCH ×2 (08:27→20:32)
[2021-08-30] MEDS: METOPROLOL TARTRATE 25 MG TAB PO SCH ×2 (08:28→20:33)
[2021-08-30] MEDS: TACROLIMUS 1 MG CAP PO SCH ×2 (08:29→20:34)
[2021-08-30] MEDS: PREVYMIS PO SCH (08:29)
[2021-08-30] MEDS: LORazepam 0.5 MG TAB SL SCH ×2 (08:34→20:39)
[2021-08-30 09:25] LABS: Hematocrit (blood only) 25.5 % (37-47); Hemoglobin 8.1 g/dL (12.0-16.0); Mean Corpuscular Hemoglobin 30.7 pg (25-34); Mean Corpuscular Hgb Conc 31.8 g/dL (32-36); Mean Corpuscular Volume 96.6 fL (80-100); Mean Platelet Volume 10.2 fL (7.4-10.4); Platelet Count 114 K/uL (130-400); RDW Coefficient of Variation 16.9 % (11.5-14.5); RDW Standard Deviation 60.2 fL (36.4-46.3); Red Blood Count 2.64 M/uL (4.2-5.4); White Blood Count 6.61 K/uL (4.8-10.8)
[2021-08-30 09:47] LABS: BUN Creatinine Ratio 27.8 (10-20); Creatinine Clr Calc Pharmacy 26.2 ml/min; Est GFR (African American) 32.6 ml/min; Est GFR (Non-African American) 28.1 ml/min; Potassium 4.2 mmol/L (3.5-5.1)
[2021-08-30] MEDS: CITALOPRAM 20 MG TAB PO SCH (11:12)
[2021-08-30] MEDS: AZITHROMYCIN 250 MG TAB PO SCH (11:12)
[2021-08-30] MEDS: PANTOprazole 40 MG TAB PO SCH (11:13)
[2021-08-30] MEDS: DOCUSATE SODIUM 100 MG CAP PO SCH (11:13)
[2021-08-30] MEDS: NOVASOURCE RENAL 2.0 CAL 1000ML BAG JT SCH (19:16)
[2021-08-30] MEDS: SULFA/TRIMETH 400/80MG TAB PO SCH (20:34)
[2021-08-30] MEDS: AMITRIPTYLINE HCL 50 MG TAB PO SCH (20:35)
--- NOTE | 2021-08-30 20:53 | Hospitalist Progress Note ---
Date of Service August 30, 2021 Assessment & Plan (1) Acute on chronic respiratory failure with hypoxia: (2) Lung transplant status, bilateral: (3) Bilateral pneumonia: (4) Severe sepsis: (5) Acute on chronic renal failure: (6) Paroxysmal A-fib: Plan: Patient is a 61-year-old female with hx of bilateral lung transplant in 2019 at [facility] with complicated course including difficulty weaning off the ventilator requiring tracheostomy, recurrent pneumonia and airway stenosis with stent in right bronchus intermedius, h/o pulmonary hypertension no longer on medications, paroxysmal atrial fibrillation, CKD III, history chronic nausea and vomiting with G-J tube in place with tube feedings, anemia who presents to ED due shortness of breath and cough x2 days. Acute on chronic respiratory failure with hypoxia Bilateral pneumonia Lung transplant status, bilateral, [facility] 2019 Severe sepsis Per CMS criteria patient met severe sepsis secondary to tachycardia, tachypnea and evidence of acute on chronic renal failure CTA chest showed Slight progression of the diffuse scattered tree-in-bud and groundglass nodular airspace opacities seen throughout the lungs. This most pronounced within the lung bases. Received IV cefepime in the ER Pulm on board Azithromycin for atypical coverage Continue with Zosyn, no indication for vancomycin given MRSA is negative Nasal MRSA negative, COVID-19 PCR negative, Procalcitonin 0.38 Continue Aggressive pulmonary toilet with levalbuterol/ipratropium, flutter valve, incentive spirometry, hypertonic saline Blood cx no grrowth Continue to hold everolimus and Prevymis Bactrim was on hold in setting of ROYER, resume when able admitting team Discussed with transplant team telecommunications line mechanic Dr Alexsander Sharp * Recommendations are to not give IV solumedrol, continue oral hydrocortisone, stress doses if hypotensive * hold tacrolimus and everolimus until troughs come back, evero should be 3-8 and tacro 8-10 She agrees with all other current management - if status changes they will be willing to accept in transfer, she is scheduled for a bronch next monday Call [phone] to reach transplant services or [phone] to reach answering service Primary Transplant Physician is Dr. Altamirano Might need bronchoscopy with BAL and transbronchial biopsies sooner Tacrolimus level 4.6 and Everolimus level 2 Case discussed with transplant physician Dr. Mcbride on 08/30 that recommended increased the tacrolimus to 3mg BID starting tonight Continue to hold the everolimus during the infection Dr. Mcbride will be on for the weekend and can be reached at [phone] Continue Bactrim 400/80 tomorrow ( Confirmed with transplant team, she takes Bactrim on Monday and ) Acute on chronic CKD stage III BUN/creatinine 71 and 3.46 on admission Creatinine 1.8 today at baseline Nephrology on board IVF discontinued Avoid nephrotoxic agents Continue monitor BMP Elevated trop Mostly demand ischemia in the setting of ROYER and hypoxia trop peaked to 0.09, then trending down to 0.07 Denies any chest pain EKG showed no acute ischemic changes Hyponatremia likely due to poor intake received IVF, Na 135 today Continue monitor BMP Poor PO intake GT in place consult dietary to determine if G tube feedings would be beneficial until pt tolerating PO intake GT flushes ordered Chronic Anemia in setting of chronic disease Anemia of acute blood loss Hgb dropped from 8.8 to 6 S/P 1 unit PRBC on 08/26 Hgb 8.1 Continue to hold Heparin sub No sign of active bleeding Continue monitor CBC Hyperkalemia Potassium 4.2 today Received patiromer given by Nephro, discontinued today continue monitor BMP DVT ppx: SQ Heparin Dispo: PCU FULL CODE PCP: Karel Admission and Anticipated Discharge Date Admission Date: August 25, 2021 Subjective Pt was seen and examined for follow up of SOB Lying in bed with no acute distress Her breathing continues to improve Denies any chest pain, palpitation, dizziness and fever Review of Systems Review of Systems: All systems reviewed & are unremarkable except as noted in Subjective Physical Exam Physical Exam: General- No acute distress Head- atraumatic Eyes- PERRL, EOMI, ENT- oropharynx clear Neck- supple, no JVD Lungs- + coarse breath sounds with wheezing and rhonchi Heart- +tachycardia, no murmur Abdomen- normal bowel sounds, soft, nontender Extremities- no calf tenderness Neuro- alert, oriented x 3; PERRL, EOMI; no facial palsy; no dysarthria Skin- warm & dry Results & Data Results & Data ([facility]) Vital Signs (Past 12 Hours) Vital Signs Temp Pulse Resp BP Pulse Ox 08/30/21 20:29 36.8 C 128 H 18 113/75 97 08/30/21 19:31 122 H 18 97 08/30/21 16:00 36.8 C 121 H 18 122/63 98 08/30/21 12:14 91 H 18 96 08/30/21 11:00 36.9 C 113 H 16 138/69 95
[2021-08-31] MEDS: IPRATROPIUM BROMIDE NEB SOLN 0.02% 2.5 ML VIAL INH SCH ×4 (00:13→19:24)
[2021-08-31] MEDS: LEVALBUTEROL HCL 0.63 MG/3 ML NEB NEB SCH ×4 (00:13→19:24)
[2021-08-31] MEDS: PIPERACILLIN/TAZOBACTAM 3.375 GM in DEXTROSE 5% 100 ML IV SCH ×3 (02:04→17:17)
[2021-08-31] MEDS: TUBE FEEDING WATER FLUSH GT SCH ×6 (04:20→23:42)
[2021-08-31] MEDS: [UNRECOGNIZED DRUG - REMARK] SCH (05:54)
[2021-08-31] MEDS: SODIUM CHLOR 7% 4 ML NEB NEB SCH ×2 (06:59→19:24)
[2021-08-31] MEDS: BENZONATATE 100 MG CAPSULE PO SCH ×3 (08:16→20:07)
[2021-08-31] MEDS: METOPROLOL TARTRATE 25 MG TAB PO SCH ×2 (08:16→20:08)
[2021-08-31] MEDS: TACROLIMUS 1 MG CAP PO SCH ×2 (08:17→20:08)
[2021-08-31] MEDS: ACYCLOVIR 400 MG TAB PO SCH ×2 (08:17→20:06)
[2021-08-31] MEDS: guaiFENesin 600 MG TABCR PO SCH ×2 (08:18→20:06)
[2021-08-31] MEDS: azaTHIOprine 50 MG TAB PO SCH (08:18)
[2021-08-31] MEDS: PREVYMIS PO SCH (08:20)
[2021-08-31] MEDS: HYDROCORTISONE 10 MG TAB PO SCH ×3 (08:20→20:07)
[2021-08-31] MEDS: LORazepam 0.5 MG TAB SL SCH ×2 (08:57→20:13)
[2021-08-31 10:30] LABS: Hematocrit (blood only) 26.1 % (37-47); Hemoglobin 8.2 g/dL (12.0-16.0); Mean Corpuscular Hemoglobin 30.4 pg (25-34); Mean Corpuscular Hgb Conc 31.4 g/dL (32-36); Mean Corpuscular Volume 96.7 fL (80-100); Mean Platelet Volume 9.6 fL (7.4-10.4); Platelet Count 114 K/uL (130-400); RDW Coefficient of Variation 16.6 % (11.5-14.5); RDW Standard Deviation 58.8 fL (36.4-46.3); White Blood Count 7.35 K/uL (4.8-10.8)
[2021-08-31 11:10] LABS: BUN Creatinine Ratio 33.1 (10-20); Calcium 9.7 mg/dl (8.5-10.1); Creatinine Clr Calc Pharmacy 27.8 ml/min; Est GFR (African American) 34.6 ml/min; Est GFR (Non-African American) 29.8 ml/min; Potassium 4.4 mmol/L (3.5-5.1)
--- NOTE | 2021-08-31 11:17 | Hospitalist Progress Note ---
Date of Service August 31, 2021 Assessment & Plan (1) Acute on chronic respiratory failure with hypoxia: (2) Lung transplant status, bilateral: (3) Bilateral pneumonia: (4) Severe sepsis: (5) Acute on chronic renal failure: (6) Paroxysmal A-fib: Plan: Patient is a 61-year-old female with hx of bilateral lung transplant in 2019 at [facility] with complicated course including difficulty weaning off the ventilator requiring tracheostomy, recurrent pneumonia and airway stenosis with stent in right bronchus intermedius, h/o pulmonary hypertension no longer on medications, paroxysmal atrial fibrillation, CKD III, history chronic nausea and vomiting with G-J tube in place with tube feedings, anemia who presents to ED due shortness of breath and cough x2 days. Acute on chronic respiratory failure with hypoxia Bilateral pneumonia Lung transplant status, bilateral, [facility] 2019 Severe sepsis Per CMS criteria patient met severe sepsis secondary to tachycardia, tachypnea and evidence of acute on chronic renal failure CTA chest showed Slight progression of the diffuse scattered tree-in-bud and groundglass nodular airspace opacities seen throughout the lungs. This most pronounced within the lung bases. Received IV cefepime in the ER Pulm on board Azithromycin for atypical coverage Continue with Zosyn, no indication for vancomycin given MRSA is negative Nasal MRSA negative, COVID-19 PCR negative, Procalcitonin 0.38 Continue Aggressive pulmonary toilet with levalbuterol/ipratropium, flutter valve, incentive spirometry, hypertonic saline Blood cx no grrowth Continue to hold everolimus and Prevymis Bactrim was on hold in setting of ROYER, resume when able admitting team Discussed with transplant team multi site leasing consultant Dr Alexsander Sharp * Recommendations are to not give IV solumedrol, continue oral hydrocortisone, stress doses if hypotensive * hold tacrolimus and everolimus until troughs come back, evero should be 3-8 and tacro 8-10 She agrees with all other current management - if status changes they will be willing to accept in transfer, she is scheduled for a bronch next monday Call [phone] to reach transplant services or [phone] to reach answering service Primary Transplant Physician is Dr. Altamirano Might need bronchoscopy with BAL and transbronchial biopsies sooner Tacrolimus level 4.6 and Everolimus level 2 Case discussed with transplant physician Dr. Mcbride on 08/30 that recommended increased the tacrolimus to 3mg BID starting tonight Continue to hold the everolimus during the infection Dr. Mcbride will be on for the weekend and can be reached at [phone] Continue Bactrim 400/80 twice a week ( Confirmed with transplant team, she takes Bactrim on Monday and ) Acute on chronic CKD stage III BUN/creatinine 71 and 3.46 on admission Creatinine 1.7 today - stable Nephrology on board Avoid nephrotoxic agents Continue monitor BMP Elevated trop Mostly demand ischemia in the setting of ROYER and hypoxia trop peaked to 0.09, then trending down to 0.07 Denies any chest pain EKG showed no acute ischemic changes Hyponatremia likely due to poor intake received IVF, Na 136 today Continue monitor BMP Poor PO intake GT tube accidentally removed Will consult GI to help replace it GI recommended to consult surgery Will try to get in touch with [facility] since pt had it insert it there Chronic Anemia in setting of chronic disease Anemia of acute blood loss Hgb dropped from 8.8 to 6 S/P 1 unit PRBC on 08/26 Hgb 8.2 today Continue to hold Heparin sub No sign of active bleeding Continue monitor CBC Hyperkalemia Potassium 4.4 today Received patiromer during the course of the admission continue monitor BMP DVT ppx: SQ Heparin on hold due too low hemoglobin Dispo: PCU FULL CODE PCP: Karel Admission and Anticipated Discharge Date Admission Date: August 25, 2021 Subjective Pt was seen and examined for follow up of SOB Sitting in chair with no acute distress Her breathing continues to improve slowly This morning while in the bathroom working with OT her peg tube removed accidentally She said the PEG tub was placed at [facility] by Dr. Andrés Justin Denies any chest pain, palpitation, dizziness and fever Review of Systems Review of Systems: All systems reviewed & are unremarkable except as noted in Subjective Physical Exam Physical Exam: General- No acute distress Head- atraumatic Eyes- PERRL, EOMI, ENT- oropharynx clear Neck- supple, no JVD Lungs- + coarse breath sounds with wheezing and rhonchi Heart- +tachycardia, no murmur Abdomen- normal bowel sounds, soft, nontender Extremities- no calf tenderness Neuro- alert, oriented x 3; PERRL, EOMI; no facial palsy; no dysarthria Skin- warm & dry Results & Data Results & Data ([facility]) Vital Signs (Past 12 Hours) Vital Signs Temp Pulse Pulse Resp BP Pulse Ox 08/31/21 07:51 36.8 C 124 H 20 134/82 98 08/31/21 07:03 112 H 18 95 08/31/21 04:09 37 C 111 H 18 97/57 L 92 08/31/21 00:06 122 H
[2021-08-31] MEDS ORDERED: METOPROLOL TARTRATE 25 MG TAB PO ONE (12:11)
[2021-08-31] MEDS: CITALOPRAM 20 MG TAB PO SCH (12:29)
[2021-08-31] MEDS: AZITHROMYCIN 250 MG TAB PO SCH (12:29)
[2021-08-31] MEDS: PANTOprazole 40 MG TAB PO SCH (12:31)
--- NOTE | 2021-08-31 12:36 | Communication Note ---
Date of Service: August 31, 2021 GI was consulted to replace a G-J tube after it had fallen out during physical therapy. Discussed with hospitalist that unless general surgery feels that they can provide a service, patient will need IR. Per brief review of records, it appears that this G-J tube has been managed at [facility]. It has fallen out before resulting in an ED visit at which time contact was made with her providers at [facility] as we do not have IR services. It was requested that a hawhtorne or PEG be placed in the stoma simply to keep it patent until she was able to be taken to IR at another facility. We will hold off on a formal consult as we do not manage J tubes.
[2021-08-31] MEDS: DOCUSATE SODIUM 100 MG CAP PO SCH (12:47)
--- NOTE | 2021-08-31 13:21 | Surgery Consultation ---
Date of Consultation August 31, 2021 Assessment & Plan (1) Gastrojejunostomy tube dislodgement: This is a 61yF with a PMH significant for COPD, bilateral lung transplant 2019 at [facility], CKD, gastroparesis with n/v and GJ tube status, paroxysmal afib who presented to the [facility] ED on 08/25/21 with shortness of breath, found to have acute on chronic respiratory failure. Today while working with PT/OT her GJ tube inadvertently fell out. We have been consulted for consideration of replacement. GI was contacted however they do not manage GJ tubes and deferred to us versus replacement at tertiary center with IR. Spoke with our radiology department who does not place or replace GJ tubes and we do not have any in stock. We then when to the Endo suite and found an 18F g-tube we were able to place into patient's stoma at the bedside. This may be used to trial feeding if patient tolerates. If not this will need to be converted to a GJ tube at a facility with IR capabilities as outpatient. Please call back with any questions/concerns. Supervising Physician Co-Signing Physician Notes pnt S&E, agree with above. s/p bilateral lung transplant, history of G-J tube that feel out today while doing OT. GI and radiology do not have G-J replacement tubes. 18 G tube placed. May try gastric feeds, if patient has discomfort or nausea then may need replacement of GJ tube at facility with IR capabilities. surgery will s/o. History of Present Illness Attending Physician: Chaka Bar MD History of Present Illness This is a 61yF with a PMH significant for COPD, bilateral lung transplant 2019 at [facility], CKD, gastroparesis with n/v and GJ tube status, paroxysmal afib who presented to the [facility] ED on 08/25/21 with shortness of breath, found to have acute on chronic respiratory failure. Today while working with PT/OT her GJ tube inadvertently fell out. We have been consulted for consideration of replacement. GI was contacted however they do not manage GJ tubes and deferred to us vs. IR. Her GJ was placed at [facility] in 2019 for chronic n/v. It has fallen out once and required replacement at [facility] by IR in 2020. Patient uses it for nocturnal feeds via the J port over 12 hours, but also says she is able to eat now during the day with the help of medications to manage her symptoms. She denies any issues with the GJ until it has fallen out today. From a respiratory standpoint she is feeling better than admission. Allergies Allergy/AdvReac Type Severity Reaction Status Date / Time glimepiride AdvReac Severe Fainting Verified 07/12/21 12:30 Home Medications Medication Instructions Recorded Confirmed Type pantoprazole 40 mg tablet,delayed 40 mg PO DAILY@1200 01/24/20 08/25/21 History release (Protonix) sulfamethoxazole 400 1 tab PO 2XWK 09/08/20 08/25/21 History mg-trimethoprim 80 mg tablet (Bactrim) Domperidone 20 mg PO QID 10/21/20 08/25/21 History amitriptyline 50 mg tablet 50 mg PO HS 02/09/21 08/25/21 History tacrolimus 1 mg capsule, 4 mg PO AMHS 02/09/21 08/25/21 History immediate-release citalopram 10 mg tablet 10 mg PO .DAILY AT NOON 05/07/21 08/25/21 History everolimus (immunosuppressive) 0.5 2 mg PO BID 05/07/21 08/25/21 History mg tablet lorazepam 0.5 mg tablet 0.5 mg SUBLINGUAL BID 05/07/21 08/25/21 History metoprolol tartrate 50 mg tablet 25 mg PO BID 05/07/21 08/25/21 History azithromycin 250 mg tablet 250 mg PO DAILY@1200 05/18/21 08/25/21 History hydrocortisone 10 mg tablet 10 mg PO BID 07/12/21 08/25/21 History acyclovir 400 mg tablet 400 mg PO AMHS 08/25/21 08/25/21 History azathioprine 50 mg tablet 50 mg PO QAM 08/25/21 08/25/21 History docusate sodium 100 mg capsule 100 mg PO .DAILY AT NOON 08/25/21 08/25/21 History (Colace) hydrocortisone 10 mg tablet 20 mg PO QAM 08/25/21 08/25/21 History letermovir 240 mg tablet (Prevymis) 480 mg PO DAILY 08/25/21 08/25/21 History potassium chloride 20 mEq 20 meq PO BID 08/25/21 08/25/21 History tablet,extended release(part/cryst) Patient History Medical History ASCUS of cervix with negative high risk HPV Bronchiectasis following lung transplantation Cholesteatoma of both middle ears Chronic mastoiditis Chronic obstructive pulmonary disease Chronic respiratory failure with hypoxia and hypercapnia Chronic tympanomastoiditis CKD (chronic kidney disease) stage 4, GFR 15-29 ml/min Encounter for mastoidectomy cavity debridement History of actinic keratosis Hypercholesterolemia LGSIL on Pap smear of cervix Osteoporosis Paroxysmal A-fib Postmenopausal Pulmonary emphysema Pulmonary hypertension Surgical History History of colposcopy History of ear surgery Hx of colonoscopy Hx of tonsillectomy Lung transplant status, bilateral 11/11/2019 [facility] Presby S/P cardiac cath S/P dilation and curettage S/P wisdom tooth extraction Family History Mother Adenocarcinoma of lung Osteoporosis Rheumatoid arthritis Lung cancer Myocardial infarction Aunt Breast cancer maternal aunt Grandfather (Paternal) Colorectal cancer Father Lung cancer Denies family history of Ovarian cancer Social History Smoking Status: Former smoker Tobacco Type: Cigarettes Cigarettes Per Day: 1 ppd for 23 years; Second Hand Exposure: No; Hx Alcohol Use: No Hx Substance Use: No Preferred Language: Bolivian Communication Ability: Effective System Designer Required: No Beliefs That Will Affect Care: None marital status: Current Living Situation: Spouse Other Information That Helps Us Care for You: No Feels Safe at Home: Yes Safety Concerns: Feels Safe At This Time Assistive Devices: Glasses, Oxygen - Continuous and Walker Review of Systems Constitutional: no fever and no chills Respiratory: + dyspnea (improving ) Gastrointestinal: GJ tube fell out Physical Exam Physical Exam: awake/alert, no acute distress Gastrointestinal (Abdomen): Percussion/Palpation: abdomen soft; abdomen nontender 4x4 gauze over GJ tube site Results & Data ([facility]) Vital Signs (Past 12 Hours) Vital Signs Temp Pulse Resp BP BP Pulse Ox 08/31/21 12:33 120 H 16 98 08/31/21 11:27 36.8 C 104 H 19 129/79 99 08/31/21 07:51 36.8 C 124 H 20 134/82 98 08/31/21 07:03 112 H 18 95 08/31/21 04:09 37 C 111 H 18 97/57 L 92 PG Care Time/CCT Total # of Minutes Spent Total Time Spent with Patient: Total time spent is greater than 50% in coordination of care (as documented) at patient's floor/unit and/or counseling patient: Coding Level of Care Code 42332 Initial Inpt Care Lvl 1 Diagnoses Gastrojejunostomy tube dislodgement T85.528A
[2021-08-31] MEDS ORDERED: LIDOCAINE 1% LOCAL 20 ML VIAL ONE (13:45)
[2021-08-31] MEDS: NOVASOURCE RENAL 2.0 CAL 1000ML BAG JT SCH (18:21)
[2021-08-31] MEDS: AMITRIPTYLINE HCL 50 MG TAB PO SCH (20:07)
[2021-09-01] MEDS: IPRATROPIUM BROMIDE NEB SOLN 0.02% 2.5 ML VIAL INH SCH ×4 (00:25→20:07)
[2021-09-01] MEDS: LEVALBUTEROL HCL 0.63 MG/3 ML NEB NEB SCH ×4 (00:25→20:07)
[2021-09-01] MEDS: PIPERACILLIN/TAZOBACTAM 3.375 GM in DEXTROSE 5% 100 ML IV SCH ×2 (01:17→09:11)
[2021-09-01] MEDS: TUBE FEEDING WATER FLUSH GT SCH ×5 (03:37→19:57)
[2021-09-01] MEDS: [UNRECOGNIZED DRUG - REMARK] SCH (05:51)
[2021-09-01] MEDS: SODIUM CHLOR 7% 4 ML NEB NEB SCH ×3 (07:00→20:08)
[2021-09-01 07:39] LABS: Hemoglobin 7.9 g/dL (12.0-16.0); Mean Corpuscular Hemoglobin 30.6 pg (25-34); Mean Corpuscular Hgb Conc 31.6 g/dL (32-36); Mean Corpuscular Volume 96.9 fL (80-100); Mean Platelet Volume 10.7 fL (7.4-10.4); Platelet Count 137 K/uL (130-400); RDW Coefficient of Variation 16.7 % (11.5-14.5); RDW Standard Deviation 58.5 fL (36.4-46.3); Red Blood Count 2.58 M/uL (4.2-5.4); White Blood Count 5.75 K/uL (4.8-10.8)
[2021-09-01 08:01] LABS: BUN Creatinine Ratio 38.2 (10-20); Calcium 9.9 mg/dl (8.5-10.1); Creatinine Clr Calc Pharmacy 30.1 ml/min; Est GFR (African American) 37.9 ml/min; Est GFR (Non-African American) 32.7 ml/min; Magnesium 1.7 mg/dl (1.7-2.4)
[2021-09-01] MEDS: HYDROCORTISONE 10 MG TAB PO SCH ×3 (08:59→19:57)
[2021-09-01] MEDS: BENZONATATE 100 MG CAPSULE PO SCH ×3 (09:00→19:57)
[2021-09-01] MEDS: TACROLIMUS 1 MG CAP PO SCH ×2 (09:00→19:57)
[2021-09-01] MEDS: azaTHIOprine 50 MG TAB PO SCH (09:00)
[2021-09-01] MEDS: ACYCLOVIR 400 MG TAB PO SCH ×2 (09:01→19:57)
[2021-09-01] MEDS: guaiFENesin 600 MG TABCR PO SCH ×2 (09:01→19:57)
[2021-09-01] MEDS: METOPROLOL TARTRATE 25 MG TAB PO SCH ×2 (09:02→19:57)
[2021-09-01] MEDS: LORazepam 0.5 MG TAB SL SCH ×2 (09:04→20:02)
[2021-09-01] MEDS: PREVYMIS PO SCH (09:08)
--- NOTE | 2021-09-01 11:40 | Electrocardiogram Report ---
Test Reason : Blood Pressure : / mmHG Vent. Rate : 100 BPM Atrial Rate : 100 BPM P-R Int : 130 ms QRS Dur : 086 ms QT Int : 348 ms P-R-T Axes : 070 054 087 degrees QTc Int : 448 ms Normal sinus rhythm Possible Left atrial enlargement Borderline ECG When compared with ECG of 25-AUG-2021 08:18, ST no longer depressed in Lateral leads Confirmed by Hosea John ([id number]) on 09/01/2021 11:40:27 AM Referred By: REFERRED SELF Confirmed By:Hosea John
[2021-09-01] MEDS: DOCUSATE SODIUM 100 MG CAP PO SCH (12:36)
[2021-09-01] MEDS: AZITHROMYCIN 250 MG TAB PO SCH (13:03)
[2021-09-01] MEDS: CITALOPRAM 20 MG TAB PO SCH (13:03)
[2021-09-01] MEDS: PANTOprazole 40 MG TAB PO SCH (13:05)
--- NOTE | 2021-09-01 14:56 | Hospitalist Progress Note ---
Date of Service September 01, 2021 Assessment & Plan (1) Acute on chronic respiratory failure with hypoxia: (2) Lung transplant status, bilateral: (3) Bilateral pneumonia: (4) Severe sepsis: (5) Acute on chronic renal failure: (6) Paroxysmal A-fib: Plan: Patient is a 61-year-old female with hx of bilateral lung transplant in 2019 at [facility] with complicated course including difficulty weaning off the ventilator requiring tracheostomy, recurrent pneumonia and airway stenosis with stent in right bronchus intermedius, h/o pulmonary hypertension no longer on medications, paroxysmal atrial fibrillation, CKD III, history chronic nausea and vomiting with G-J tube in place with tube feedings, anemia who presents to ED due shortness of breath and cough x2 days. Acute on chronic respiratory failure with hypoxia Bilateral pneumonia Lung transplant status, bilateral, [facility] 2019 Severe sepsis Per CMS criteria patient met severe sepsis secondary to tachycardia, tachypnea and evidence of acute on chronic renal failure CTA chest showed Slight progression of the diffuse scattered tree-in-bud and groundglass nodular airspace opacities seen throughout the lungs. This most pronounced within the lung bases. Received IV cefepime in the ER Pulm on board Azithromycin for atypical coverage Continue with Zosyn, no indication for vancomycin given MRSA is negative, today is Day 7 Nasal MRSA negative, COVID-19 PCR negative, Procalcitonin 0.38 Continue Aggressive pulmonary toilet with levalbuterol/ipratropium, flutter valve, incentive spirometry, hypertonic saline Blood cx no grrowth Continue to hold everolimus Bactrim was on hold in setting of ROYER, resumed on 08/30, now that renal function is back to baseline. admitting team Discussed with transplant team lion tamer Dr Alexsander Sharp * Recommendations are to not give IV solumedrol, continue oral hydrocortisone, stress doses if hypotensive * hold tacrolimus and everolimus until troughs come back, evero should be 3-8 and tacro 8-10 [address] Physician [address] Dr. Altamirano Tacrolimus level 4.6 and Everolimus level 2 Case discussed with transplant physician Dr. Mcbride on 08/30 that recommended increased the tacrolimus to 3mg BID starting tonight Continue to hold the everolimus during the infection Continue Bactrim 400/80 twice a week ( Confirmed with transplant team, she takes Bactrim on Monday and ) Acute on chronic CKD stage III BUN/creatinine 71 and 3.46 on admission PEr Neprhology, she is chronically ill and malnourished contributing to ROYER. Ongoing poor PO intake. Nephrology signoff DISCHARGE INSTRUCTIONS: -needs hospital d/c appt 2-4 wks after d/c w/ (Kady Sandoval MD, [facility] Nephrology) -needs bmp and hgb to be ordered as off site lab by [facility] Nephro RN -immunosuppression as per [facility] lung transplant team -d/c on potassium supplement 20 mEq DAILY, not bid as prior to admission, UNLESS K running consistently > 4 in house while back on bactrim -will need neph f/u w/ me after d/c in CKD clinic Elevated trop Demand ischemia in the setting of ROYER and hypoxia trop peaked to 0.09, then trending down to 0.07 Denies any chest pain EKG showed no acute ischemic changes No futher workup Hyponatremia likely due to poor intake received IVF, reesolved to normal range. Poor PO intake GT tube accidentally removed during PT this admission GI recommended to consult surgery GT was replaced by general Surgery team on 08/31 An 18F G-tube was placed into the patient's stoma at bedside Chronic Anemia in setting of chronic disease Anemia of acute blood loss Hgb dropped from 8.8 to 6 S/P 1 unit PRBC on 08/26 Hgb 8.2 today Continue to hold Heparin sub No sign of active bleeding stable but low. Cont outpatient montioring. DVT ppx: SQ Heparin on hold due too low hemoglobin Dispo: PCU FULL CODE PCP: Karel Ruiz DO [facility] Hospitalist Admission and Anticipated Discharge Date Admission Date: August 25, 2021 Subjective 61 yo bilateral lung transplant patient presents for progressive SOB and cough after recent hospitalization in Jul 2021 (discharged 07/23/21). She reports not feeling as though she ever completely improved. She reports a gradual decline since leaving the hospital in Jul and was losing weight, so she went back to supplemental tube feedings at night and came to the hospital. She has been treated now with another week of IV antibiotics and reports that her breathing is gradually improving but is not back to her baseline. She doesn't feel ready to go home yet. afebrile she has been up and walking with walker which is her baseline. denies pain Doing well with the PEG tube placed by surgery yesterday Review of Systems Review of Systems: All systems were reviewed and negative except as indicated above. Physical Exam Physical Exam: CONSTITUTIONAL: WNWD, vitals as above, generally NAD EYES: normal conjunctivae, no scleral icterus ENT: external ear and nose normal, MMM NECK: trachea midline, RESPIRATORY: wheezing and coarse rhonchi throughout all lung freitas, although her respiratory effort, no increased respiratory effort at rest. Does appear to have some conversational dyspnea. CARDIOVASCULAR: regular rate and rhythm, S1 and 2 heard without murmurs, gallops or rubs, no JVD, no peripheral edema CHEST: inspection of chest was normal GASTROINTESTINAL: soft, nontender, ND, no guarding MUSCULOSKELETAL: strength 5/5 throughout, head is normocephalic and atraumatic SKIN: warm and dry, NEUROLOGIC: CN 2-12 grossly intact, no sensory deficit, normal cognition, normal speech, no tremor PSYCHIATRIC: alert cooperative and oriented to person, place and time. Results & Data Results & Data ([facility]) Vital Signs (Past 12 Hours) Vital Signs Temp Pulse Pulse Resp BP BP Pulse Ox 09/01/21 13:15 108 H 22 93 09/01/21 10:57 36.8 C 92 H 17 128/79 98 09/01/21 07:06 36.7 C 119 H 20 135/96 99 09/01/21 07:01 116 H 22 98 09/01/21 06:15 121 H 09/01/21 03:23 36.8 C 101 H 18 132/77 99 Laboratory Results Short CBC 09/01/21 Range/Units 07:09 WBC 5.75 (4.8-10.8) K/uL Hgb 7.9 L (12.0-16.0) g/dL Hct 25.0 L (37-47) % Plt Count 137 (130-400) K/uL BMP 09/01/21 07:09 Sodium 138 Potassium 4.0 Chloride 100 Carbon Dioxide 32 BUN 63 H Creatinine 1.65 H Glucose 117 H Calcium 9.9 Medications Administered Current Inpatient Medications Acetaminophen (Acetaminophen 325 Mg Tab) 650 mg PO Q4H PRN PRN Reason: Pain or Fever Stop: 09/24/21 13:20 Acyclovir (Acyclovir 400 Mg Tab) 400 mg PO [facility] FRANCIE; Protocol Stop: 09/24/21 20:59 Last Admin: 09/01/21 09:01 Dose: 400 mg Documented by: Amitriptyline HCl (Amitriptyline Hcl 50 Mg Tab) 50 mg PO HS [facility] Stop: 09/24/21 20:59 Last Admin: 08/31/21 20:07 Dose: 50 mg Documented by: Azathioprine (Azathioprine 50 Mg Tab) 50 mg PO QAM [facility] Stop: 09/25/21 08:59 Last Admin: 09/01/21 09:00 Dose: 50 mg Documented by: Azithromycin (Azithromycin 250 Mg Tab) 250 mg PO DAILY@1200 [facility] Stop: 09/24/21 13:59 Last Admin: 09/01/21 13:03 Dose: 250 mg Documented by: Benzonatate (Benzonatate 100 Mg Capsule) 100 mg PO TID [facility] Stop: 09/24/21 13:59 Last Admin: 09/01/21 13:03 Dose: 100 mg Documented by: Citalopram Hydrobromide (Citalopram 20 Mg Tab) 10 mg PO 1200 [facility] Stop: 09/24/21 13:59 Last Admin: 09/01/21 13:03 Dose: 10 mg Documented by: Docusate Sodium (Docusate Sodium 100 Mg Cap) 100 mg PO 1200 [facility] Stop: 09/24/21 13:59 Last Admin: 09/01/21 12:36 Dose: Not Given Documented by: Enteral Nutritional Formula (Novasource Renal 2.0 Fredrick 1000ml Bag) 1,000 ml JT TODAY@1800 FRANCIE; Protocol Stop: 09/28/21 17:59 Last Admin: 08/31/21 18:21 Dose: 1,000 ml Documented by: Guaifenesin (Guaifenesin 600 Mg Tabcr) 600 mg PO Q12 [facility] Stop: 09/24/21 20:59 Last Admin: 09/01/21 09:01 Dose: 600 mg Documented by: Heparin Sodium (Porcine) (Heparin Sod 5,000 Unit/0.5 Ml Vial) 5,000 units SQ Q12 [facility] Stop: 09/24/21 20:59 Last Admin: 08/25/21 20:47 Dose: 5,000 units Documented by: Hydrocortisone (Hydrocortisone 10 Mg Tab) 10 mg PO BID@1200,2100 [facility] Stop: 09/24/21 13:59 Last Admin: 09/01/21 13:06 Dose: 10 mg Documented by: Hydrocortisone (Hydrocortisone 10 Mg Tab) 20 mg PO QAM [facility] Stop: 09/25/21 08:59 Last Admin: 09/01/21 08:59 Dose: 20 mg Documented by: Promethazine HCl 6.25 mg/ (Sodium Chloride) 50.25 mls @ 201 mls/hr IV Q8H PRN PRN Reason: Nausea And Vomiting Stop: 09/26/21 15:29 Piperacillin Sod/Tazobactam (Sod 3.375 gm/ Dextrose) 115 mls @ 28.75 mls/hr IV Q8H [facility]; Protocol Stop: 09/01/21 17:59 Last Infusion: 09/01/21 14:20 Dose: Infused Documented by: Ipratropium [place] (Ipratropium [place] Neb Soln 0.02% 2.5 Ml Vial) 0.5 mg INH Q6R [facility] Stop: 09/24/21 18:59 Last Admin: 09/01/21 13:15 Dose: 0.5 mg Documented by: Levalbuterol HCl (Levalbuterol Hcl 0.63 Mg/3 Ml Neb) 0.63 mg NEB Q6R [facility] Stop: 09/24/21 18:59 Last Admin: 09/01/21 13:15 Dose: 0.63 mg Documented by: Lorazepam (Lorazepam 0.5 Mg Tab) 0.5 mg SL BID [facility] Stop: 09/24/21 13:20 Last Admin: 09/01/21 09:04 Dose: 0.5 mg Documented by: Metoprolol Tartrate (Metoprolol Tartrate 25 Mg Tab) 37.5 mg PO BID [facility] Stop: 09/30/21 20:59 Last Admin: 09/01/21 09:02 Dose: 37.5 mg Documented by: Miscellaneous (Stop Novasource) 1 ea N/A DAILY@0600 [facility] Stop: 09/29/21 05:59 Last Admin: 09/01/21 05:51 Dose: 1 ea Documented by: Miscellaneous Information (Piperacill/Tazobac Consult Active) 1 ea N/A UD PRN PRN Reason: Consult Stop: 09/01/21 17:59 Prevymis~Non- Formulary Patient's Own Med 1 ea PO DAILY [facility] Stop: 09/25/21 08:59 Last Admin: 09/01/21 09:08 Dose: 1 ea Documented by: Ondansetron HCl (Ondansetron Inj 2 Mg/Ml 2 Ml Vial) 4 mg IV Q6H PRN PRN Reason: Nausea Stop: 09/24/21 13:20 Pantoprazole Sodium (Pantoprazole 40 Mg Tab) 40 mg PO DAILY@1200 [facility] Stop: 09/24/21 13:20 Last Admin: 09/01/21 13:05 Dose: 40 mg Documented by: Polyethylene Glycol (Polyethylene (Miralax) 17 Gm Pack) 17 gm PO DAILY PRN PRN Reason: Constipation Stop: 09/24/21 13:20 Last Admin: 08/28/21 08:42 Dose: 17 gm Documented by: Sodium Chloride (Sodium Chlor 7% 4 Ml Neb) 4 ml NEB BIDR [facility] Stop: 09/24/21 18:59 Last Admin: 09/01/21 07:00 Dose: 4 ml Documented by: Sterile Water (Tube Feeding Water Flush) 100 ml GT Q4 [facility] Stop: 09/26/21 11:59 Last Admin: 09/01/21 13:06 Dose: 100 ml Documented by: Tacrolimus (Tacrolimus 1 Mg Cap) 3 mg PO BID [facility] Stop: 09/28/21 20:59 Last Admin: 09/01/21 09:00 Dose: 3 mg Documented by: Trimethoprim/Sulfamethoxazole (Sulfa/Trimeth 400/80mg Tab) 1 tab PO MoTh@2100 [facility] Stop: 09/29/21 20:59 Last Admin: 08/30/21 20:34 Dose: 1 tab Documented by:
[2021-09-01] MEDS: NOVASOURCE RENAL 2.0 CAL 1000ML BAG JT SCH (18:40)
[2021-09-01] MEDS: AMITRIPTYLINE HCL 50 MG TAB PO SCH (19:57)
[2021-09-02] MEDS: IPRATROPIUM BROMIDE NEB SOLN 0.02% 2.5 ML VIAL INH SCH ×4 (00:02→19:25)
[2021-09-02] MEDS: LEVALBUTEROL HCL 0.63 MG/3 ML NEB NEB SCH ×4 (00:02→19:25)
[2021-09-02] MEDS: TUBE FEEDING WATER FLUSH GT SCH ×6 (00:04→19:56)
[2021-09-02] MEDS: ONDANSETRON INJ 2 MG/ML 2 ML VIAL IV PRN ×3 (00:59→18:45)
[2021-09-02] MEDS: [UNRECOGNIZED DRUG - REMARK] SCH (03:09)
[2021-09-02] MEDS: SODIUM CHLOR 7% 4 ML NEB NEB SCH ×2 (07:20→20:08)
[2021-09-02] MEDS: ACYCLOVIR 400 MG TAB PO SCH ×2 (08:03→19:56)
[2021-09-02] MEDS: METOPROLOL TARTRATE 25 MG TAB PO SCH ×2 (08:03→19:59)
[2021-09-02] MEDS: guaiFENesin 600 MG TABCR PO SCH ×2 (08:03→20:02)
[2021-09-02] MEDS: TACROLIMUS 1 MG CAP PO SCH ×2 (08:05→19:59)
[2021-09-02] MEDS: azaTHIOprine 50 MG TAB PO SCH (08:08)
[2021-09-02] MEDS: HYDROCORTISONE 10 MG TAB PO SCH ×3 (08:08→20:01)
[2021-09-02] MEDS: BENZONATATE 100 MG CAPSULE PO SCH ×3 (08:08→20:06)
[2021-09-02] MEDS: LORazepam 0.5 MG TAB SL SCH ×2 (08:11→20:06)
[2021-09-02] MEDS: PREVYMIS PO SCH (08:20)
--- NOTE | 2021-09-02 10:42 | Discharge Summary ---
Date of Service September 02, 2021 Admission HPI Per Admitting Provider Patient is a 61-year-old female with hx of bilateral lung transplant in 2020 at [facility] with complicated course including difficulty weaning off the ventilator requiring tracheostomy, recurrent pneumonia and airway stenosis with stent in right bronchus intermedius, h/o pulmonary hypertension no longer on medications, paroxysmal atrial fibrillation, CKD III, history chronic nausea and vomiting with G-J tube in place with tube feedings, anemia who presents to ED due shortness of breath and cough x2 days. Symptoms started on Monday. She developed a cough with productive purulent sputum and worsening shortness of odalys ath at rest. At baseline patient uses 2 to 2-1/2 L of oxygen at rest. She was found to be hypoxic this morning in mid 80s. In ED she was requiring 4 and half liters of oxygen. She complains of increasing shortness of breath, wheezing, chest tightness, weakness, poor appetite and overall poor intake. at bedside states he started to feedings with Nepro yesterday due to poor intake. No additional free water flushes. Her last dose of medication was yesterday morning. She denies fever, chills, sweats, lightheadedness, dizziness, chest pain, hemoptysis, vomiting, abdominal pain, change in bowel or urinary habits. She denies any decreased in urination and admits to still making urine. She is scheduled to see [facility] transplant team early next week and undergo bronchoscopy. She was last hospitalized at [facility] 07/12-07/23 secondary to exacerbation of bronchiectasis. In ED patient was hypoxic requiring 4-4 and half liters of oxygen. She met severe sepsis criteria secondary to tachycardia, tachypnea and evidence of acute on chronic CKD. She received hour-long nebulizer treatment, IV cefepime and 125 mg of IV Solu-Medrol Admission Exam Per Admitting Provider Constitutional: Chronically ill-appearing female, vitals as above, NAD, sitting up in bed, pleasant, conversing easily Head: Normocephalic, Atraumatic Eyes: PERRL, conjunctivae normal, anicteric sclerae ENMT: external ear and nose normal, oropharynx normal Neck: trachea midline, no thyromegaly normal visual inspection Respiratory: Mildly tachypneic, bilateral coarse breath sounds with wheezing and rhonchi, no rales. Increased insp/exp effort, no accessory muscle use Cardiovascular: Tachycardic rate, regular rhythm, no murmur, no edema Vessels: no JVD or carotid bruit Chest: normal inspection of chest Abdomen: normal bowel sounds, soft, nontender, no hepatosplenomegaly, G-tube in place without surrounding erythema Musculoskeletal: no cyanosis or clubbing, active range of motion x4 Skin: no rashes, warm and dry normal turgor Neurologic: PERRL, EOMI, accommodation nl, no face palsy, no dysarthria CN's II-XI intact bilaterally and moves all extremities Psychiatric: A+Ox3, euthymic affect Lymphatic: no cervical or axillary lymphadenopathy : deferred Principal Diagnosis Acute on chronic respiratory failure Bilateral lung transplant, chronic immunosuppression Bilateral pneumonia severe sepsis, resolved acute on chronic renal failure Paroxysmal atrial fibrillation Discharge Exam CONSTITUTIONAL: WNWD, vitals as above, generally NAD EYES: normal conjunctivae, no scleral icterus ENT: external ear and nose normal, MMM NECK: trachea midline, RESPIRATORY: wheezing and coarse rhonchi throughout all lung freitas, although her respiratory effort, no increased respiratory effort at rest. Does appear to have some conversational dyspnea. CARDIOVASCULAR: regular rate and rhythm, S1 and 2 heard without murmurs, gallops or rubs, no JVD, no peripheral edema CHEST: inspection of chest was normal GASTROINTESTINAL: soft, nontender, ND, no guarding MUSCULOSKELETAL: strength 5/5 throughout, head is normocephalic and atraumatic SKIN: warm and dry, NEUROLOGIC: CN 2-12 grossly intact, no sensory deficit, normal cognition, normal speech, no tremor PSYCHIATRIC: alert cooperative and oriented to person, place and time. Discharge Data Allergies Allergy/AdvReac Type Severity Reaction Status Date / Time glimepiride AdvReac Severe Fainting Verified 07/12/21 12:30 Consultations 08/25/21 09:56 ED Decision to Admit Stat 08/25/21 10:02 Consult Nephrology Routine 08/25/21 11:24 Consult Pulmonology Routine 08/31/21 10:19 Consult Gastroenterology Routine 08/31/21 12:07 Consult General Surgery Routine 09/02/21 10:31 Burn CD for patient Routine Ordered Studies Laboratory Results WBC 5.75 K/uL (4.8-10.8) 09/01/21 07:09 RBC 2.58 M/uL (4.2-5.4) L 09/01/21 07:09 Hgb 7.9 g/dL (12.0-16.0) L 09/01/21 07:09 Hct 25.0 % (37-47) L 09/01/21 07:09 MCV 96.9 fL (80-100) 09/01/21 07:09 MCH 30.6 pg (25-34) 09/01/21 07:09 MCHC 31.6 g/dL (32-36) L 09/01/21 07:09 RDW Std Deviation 58.5 fL (36.4-46.3) H 09/01/21 07:09 RDW Coeff of Janina 16.7 % (11.5-14.5) H 09/01/21 07:09 Plt Count 137 K/uL (130-400) 09/01/21 07:09 MPV 10.7 fL (7.4-10.4) H 09/01/21 07:09 Immature Gran % (Auto) 1.0 % 08/26/21 05:33 Neut % (Auto) 86.4 % 08/26/21 05:33 Lymph % (Auto) 8.5 % 08/26/21 05:33 [place] % (Auto) 4.1 % 08/26/21 05:33 Eos % (Auto) 0.0 % 08/26/21 05:33 Baso % (Auto) 0.0 % 08/26/21 05:33 Neut # (Auto) 6.30 K/uL (1.4-6.5) 08/26/21 05:33 Lymph # (Auto) 0.62 K/uL (1.2-3.4) L 08/26/21 05:33 [place] # (Auto) 0.30 K/uL (0.11-0.59) 08/26/21 05:33 Eos # (Auto) 0.00 K/uL (0-0.5) 08/26/21 05:33 Baso # (Auto) 0.00 K/uL (0-0.2) 08/26/21 05:33 Immature Gran # (Auto) 0.07 K/uL (0.00-0.02) H 08/26/21 05:33 Hypersegmented Neuts 1+ 08/25/21 08:30 Dohle Bodies 2+ 08/26/21 05:33 Platelet Estimate Normal (Normal) 08/25/21 08:30 Basophilic Stippling Occasional 08/26/21 05:33 PT 9.8 Seconds (9.0-12.0) 08/25/21 10:23 INR 0.9 (0.9-1.1) 08/25/21 10:23 APTT 23.0 Seconds (21.0-31.0) 08/25/21 10: PTT Ratio 0.8 08/25/21 10:23 ABG pH 7.41 (7.35-7.45) 08/25/21 11:30 ABG pCO2 44 mmHg (35-46) 08/25/21 11:30 ABG pO2 96 mmHg (80-95) H 08/25/21 11:30 ABG HCO3 27 mmol/L (19-24) H 08/25/21 11:30 ABG O2 Saturation 95.7 % (90-95) H 08/25/21 11:30 ABG Base Excess 2.1 mEq/L (-9-1.8) H 08/25/21 11:30 Kimo Test Pos (Pos) 08/25/21 11:30 Barometric Pressure 732.8 mm/Hg 08/25/21 11:30 Oxygen Given 5L 08/25/21 11:30 Sodium 138 mmol/L (136-145) 09/01/21 07:09 Potassium 4.0 mmol/L (3.5-5.1) 09/01/21 07:09 Chloride 100 mmol/L (98-107) 09/01/21 07:09 Carbon Dioxide 32 mmol/L (21-32) 09/01/21 07:09 Anion Gap 6 (3-11) 09/01/21 07:09 BUN 63 mg/dl (6-23) H 09/01/21 07:09 Creatinine 1.65 mg/dl (0.6-1.2) H 09/01/21 07:09 Est Cr Clr Drug Dosing 30.1 ml/min 09/01/21 07:09 Est GFR ( Amer) 37.9 ml/min 09/01/21 07:09 Est GFR (Non-Af Amer) 32.7 ml/min 09/01/21 07:09 BUN/Creatinine Ratio 38.2 (10-20) H 09/01/21 07:09 Glucose 117 mg/dl (70-99(Fasting)) H 09/01/21 07:09 Lactate 0.9 mmol/L (0.4-2.0) 08/25/21 08:30 Calcium 9.9 mg/dl (8.5-10.1) 09/01/21 07:09 Magnesium 1.7 mg/dl (1.7-2.4) 09/01/21 07:09 Total Bilirubin 0.3 mg/dl (0.2-1.0) 08/26/21 05:33 AST 24 U/L (13-39) 08/26/21 05:33 ALT 9 U/L (7-52) 08/26/21 05:33 Alkaline Phosphatase 62 U/L (34-104) 08/26/21 05:33 Troponin I 0.07 ng/ml (0-0.04) H* 08/25/21 20:17 Total Protein 6.1 gm/dl (6.0-8.3) 08/26/21 05:33 Albumin 3.3 gm/dl (3.4-5.0) L 08/26/21 05:33 Globulin 2.8 gm/dl (2.5-4.0) 08/26/21 05:33 Albumin/Globulin Ratio 1.2 (0.9-2) 08/26/21 05:33 Procalcitonin 0.38 ng/ml (0-0.5) 08/25/21 08:30 Urine Color Yellow 08/25/21 Unknown Urine Appearance Clear (Clear) 08/25/21 Unknown Urine pH 6.0 (4.5-7.5) 08/25/21 Unknown Ur Specific [place] 1.013 (1.000-1.030) 08/25/21 Unknown Urine Protein Trace (Negative) H 08/25/21 Unknown Urine Glucose (UA) 2+ (Negative) H 08/25/21 Unknown Urine Ketones Negative (Negative) 08/25/21 Unknown Urine Blood Negative (Negative) 08/25/21 Unknown Urine Nitrite Negative (Negative) 08/25/21 Unknown Urine Bilirubin Negative (Negative) 08/25/21 Unknown Urine Urobilinogen Negative (Negative) 08/25/21 Unknown Ur Leukocyte Esterase Negative (Negative) 08/25/21 Unknown Urine WBC (Auto) 1-5 /hpf (0-5) 08/25/21 Unknown Urine RBC (Auto) 0-4 /hpf (0-4) 08/25/21 Unknown U Hyaline Cast (Auto) 1-5 /lpf (0-5) 08/25/21 Unknown U Epithel Cells (Auto) 5-10 /lpf (0-5) H 08/25/21 Unknown Urine Bacteria (Auto) Negative (Negative) 08/25/21 Unknown Nasal Screen MRSA (PCR) Negative (Negative) 08/25/21 11:06 Everolimus 2.0 ng/mL (see note) 08/25/21 10:23 Tacrolimus 4.6 mcg/L L 08/25/21 10:23 SARS-CoV-2 (PCR) Uninterpretable (Negative) 08/25/21 Unknown Influenza Type A (PCR) Uninterpretable (Neg) 08/25/21 Unknown Influenza Type B (PCR) Uninterpretable (Neg) 08/25/21 Unknown RSV (RT-PCR) Uninterpretable (Neg) 08/25/21 Unknown SARS-CoV-2, RNA, NAAT NEGATIVE (NEGATIVE) 08/25/21 11:10 Blood Type O Positive 08/26/21 08:55 Antibody Screen NEGATIVE 08/26/21 08:55 Crossmatch See Detail 08/26/21 08:55 Impressions Chest X-Ray 08/25/21 08:06 XR chest 1V portable CLINICAL HISTORY: Dyspnea TECHNIQUE: Single frontal radiograph of the chest was obtained. Comparison: Comparison is made to chest one view 07/12/2021 FINDINGS: Multiple stable surgical devices are seen, unchanged. Cardiomegaly is noted. Faint bibasilar airspace opacities are seen. No evidence of pleural effusion or pneumothorax. IMPRESSION: Faint bibasilar airspace opacities which may represent atelectasis, pneumonia, and/or aspiration. ACT 112: Negative or not required by law. Electronically signed by: Ganesh Sheldon M.D. 08/25/2021 9:[address] 08/25/21 15:42 CT chest diagnostic wo con CT DOSE: 172.71 mGy.cm HISTORY: Worsening shortness of breath. Wheezing. Nausea. TECHNIQUE: Multiaxial CT images of the chest were performed without contrast. A dose lowering technique was utilized adhering to the principles of ALARA. COMPARISON: Chest CT 07/12/2021. FINDINGS: Limited views the upper abdomen demonstrate a normal liver, spleen, and visualized adrenal glands. There is trace perisplenic fluid noted. There are trace bilateral pleural effusions. No significant pericardial effusion. The heart remains enlarged. There is severe dilatation of the main pulmonary artery measuring up to 4.3 cm in diameter consistent with pulmonary arterial hypertension. Normal esophagus. Stable mildly enlarged distal paraesophageal lymph node measuring 14 x 7 mm. No significant hilar lymphadenopathy. There is a mildly enlarged prevascular lymph node, unchanged. This measures approximately 2.0 x 0.8 cm. There are old, healed bilateral rib fractures, unchanged. No pneumothorax. Diffuse mild bronchiectasis and bronchial wall thickening is not significantly changed. Right mainstem bronchus stent is partially occluded. This is also unchanged. Severe stenosis within the proximal right upper lobe bronchus, unchanged. There is also moderate stenosis at the takeoff of the right middle lobe bronchus. Multiple scattered tree-in-bud and groundglass nodular airspace opacities are again seen throughout the lungs. This is most pronounced within the lung bases. Overall, this has slightly progressed in the interval. Peripheral focal wedge-shaped densities within the lung apices posteriorly remain unchanged. Dominant wedge-shaped consolidation within the right lung apex measures 1.4 cm. IMPRESSION: 1. Postoperative changes consistent with prior double lung transplant. 2. Slight progression of the diffuse scattered tree-in-bud and groundglass nodular airspace opacities seen throughout the lungs. This most pronounced within the lung bases. This is nonspecific but may represent an atypical pneumonia, drug reaction, or possibly rejection. 3. Cardiomegaly and pulmonary hypertension are again noted. 4. Trace bilateral pleural effusions. 5. Trace perisplenic fluid.. 6. Severe narrowing within the right proximal bronchi as described above with partial occlusion of the right mainstem bronchial stent. This remains unchanged. 7. A few stable prominent mediastinal lymph nodes. ACT 112: Negative or not required by law. Electronically signed by: Dirk Evans M.D. 08/25/2021 5:02 PM Hospital Course (1) Acute on chronic respiratory failure with hypoxia: (2) Lung transplant status, bilateral: (3) Bilateral pneumonia: (4) Severe sepsis: (5) Acute on chronic renal failure: (6) Paroxysmal A-fib: Patient is a 61-year-old female with hx of bilateral lung transplant in 2020 at [facility] with complicated course including difficulty weaning off the ventilator requiring tracheostomy, recurrent pneumonia and airway stenosis with stent in right bronchus intermedius, h/o pulmonary hypertension no longer on medications, paroxysmal atrial fibrillation, CKD III, history chronic nausea and vomiting with G-J tube in place with tube feedings, anemia who presents to ED due shortness of breath and cough x2 days. Acute on chronic respiratory failure with hypoxia Bilateral pneumonia Lung transplant status, bilateral, [facility] 2019 Severe sepsis Per CMS criteria patient met severe sepsis secondary to tachycardia, tachypnea and evidence of acute on chronic renal failure CTA chest showed Slight progression of the diffuse scattered tree-in-bud and groundglass nodular airspace opacities seen throughout the lungs. This most pronounced within the lung bases. Received IV cefepime in the ER Pulm on board Azithromycin for atypical coverage Continue with Zosyn, no indication for vancomycin given MRSA is negative, today is Day 7 Nasal MRSA negative, COVID-19 PCR negative, Procalcitonin 0.38 Continue Aggressive pulmonary toilet with levalbuterol/ipratropium, flutter valve, incentive spirometry, hypertonic saline Blood cx no grrowth Continue to hold everolimus Bactrim was on hold in setting of ROYER, resumed on 08/30, now that renal function is back to baseline. admitting team Discussed with transplant team supervisor [employer] pipe [employer] Dr Alexsander Sharp * Recommendations are to not give IV solumedrol, continue oral hydrocortisone, stress doses if hypotensive * hold tacrolimus and everolimus until troughs come back, evero should be 3-8 and tacro 8-[address] Dr. Altamirano Tacrolimus level 4.6 and Everolimus level 2 Case discussed with transplant physician Dr. Mcbride on 08/30 that recommended increased the tacrolimus to 3mg BID starting tonight Continue to hold the everolimus during the infection Continue Bactrim 400/80 twice a week ( Confirmed with transplant team, she takes Bactrim on Monday and ) Acute on chronic CKD stage III BUN/creatinine 71 and 3.46 on admission PEr Neprhology, she is chronically ill and malnourished contributing to ROYER. Ongoing poor PO intake. Nephrology signoff DISCHARGE INSTRUCTIONS: -needs hospital d/c appt 2-4 wks after d/c w/ (Kady Sandoval MD, [facility] Nephrology) -needs bmp and hgb to be ordered as off site lab by GMJohn Nephro RN -immunosuppression as per [facility] lung transplant team -d/c on potassium supplement 20 mEq DAILY, not bid as prior to admission, UNLESS K running consistently > 4 in house while back on bactrim -will need neph f/u w/ me after d/c in CKD clinic Elevated trop Demand ischemia in the setting of ROYER and hypoxia trop peaked to 0.09, then trending down to 0.07 Denies any chest pain EKG showed no acute ischemic changes No futher workup Hyponatremia likely due to poor intake received IVF, reesolved to normal range. Poor PO intake GT tube accidentally removed during PT this admission GI recommended to consult surgery GT was replaced by general Surgery team on 08/31 An 18F G-tube was placed into the patient's stoma at bedside Unfortunately the patient accidentally pulled this out of position overnight on 09/02. Consider replacement at [facility] after transfer Chronic Anemia in setting of chronic disease Anemia of acute blood loss Hgb dropped from 8.8 to 6 S/P 1 unit PRBC on 08/26 Hgb 8.2 today Continue to hold Heparin sub No sign of active bleeding stable but low. Cont outpatient montioring. DVT ppx: SQ Heparin on hold due too low hemoglobin I spoke with Dr. Foster from [facility] Pulmonology on 09/02 and we discussed her case in detail. Given that she is requiring consistent oxygen, not quite to her baseline breathing after a full course of Zosyn and may need further treatment considerations by their team, we have decided on an inpatient transfer to [facility]. This will be in an effort to get her an inpatient bronchoscopy in lieu of the outpatient broch that was originally scheduled for this week. I spoke with her husnad and explained the plan. He is in agreement. Will transfer the patient in stable condition when transport is available. Veronica Ruiz DO [facility] Hospitalist Current Inpatient Medications Acetaminophen (Acetaminophen 325 Mg Tab) 650 mg PO Q4H PRN PRN Reason: Pain or Fever Stop: 09/24/21 13:20 Acyclovir (Acyclovir 400 Mg Tab) 400 mg PO [facility]; Protocol Stop: 09/24/21 20:59 Last Admin: 09/02/21 08:03 Dose: 400 mg Documented by: Amitriptyline HCl (Amitriptyline Hcl 50 Mg Tab) 50 mg PO HS [facility] Stop: 09/24/21 20:59 Last Admin: 09/01/21 19:57 Dose: 50 mg Documented by: Azathioprine (Azathioprine 50 Mg Tab) 50 mg PO QAM [facility] Stop: 09/25/21 08:59 Last Admin: 09/02/21 08:08 Dose: 50 mg Documented by: Azithromycin (Azithromycin 250 Mg Tab) 250 mg PO DAILY@1200 [facility] Stop: 09/24/21 13:59 Last Admin: 09/01/21 13:03 Dose: 250 mg Documented by: Benzonatate (Benzonatate 100 Mg Capsule) 100 mg PO TID [facility] Stop: 09/24/21 13:59 Last Admin: 09/02/21 08:08 Dose: 100 mg Documented by: Citalopram Hydrobromide (Citalopram 20 Mg Tab) 10 mg PO 1200 [facility] Stop: 09/24/21 13:59 Last Admin: 09/01/21 13:03 Dose: 10 mg Documented by: Docusate Sodium (Docusate Sodium 100 Mg Cap) 100 mg PO 1200 [facility] Stop: 09/24/21 13:59 Last Admin: 09/01/21 12:36 Dose: Not Given Documented by: Enteral Nutritional Formula (Novasource Renal 2.0 Fredrick 1000ml Bag) 1,000 ml JT TODAY@1800 [facility]; Protocol Stop: 09/28/21 17:59 Last Admin: 09/01/21 18:40 Dose: 1,000 ml Documented by: Guaifenesin (Guaifenesin 600 Mg Tabcr) 600 mg PO Q12 [facility] Stop: 09/24/21 20:59 Last Admin: 09/02/21 08:03 Dose: 600 mg Documented by: Heparin Sodium (Porcine) (Heparin Sod 5,000 Unit/0.5 Ml Vial) 5,000 units SQ Q12 [facility] Stop: 09/24/21 20:59 Last Admin: 08/25/21 20:47 Dose: 5,000 units Documented by: Hydrocortisone (Hydrocortisone 10 Mg Tab) 10 mg PO BID@1200,2100 [facility] Stop: 09/24/21 13:59 Last Admin: 09/01/21 19:57 Dose: 10 mg Documented by: Hydrocortisone (Hydrocortisone 10 Mg Tab) 20 mg PO QAM [facility] Stop: 09/25/21 08:59 Last Admin: 09/02/21 08:08 Dose: 20 mg Documented by: Promethazine HCl 6.25 mg/ (Sodium Chloride) 50.25 mls @ 201 mls/hr IV Q8H PRN PRN Reason: Nausea And Vomiting Stop: 09/26/21 15:29 Ipratropium [place] (Ipratropium [place] Neb Soln 0.02% 2.5 Ml Vial) 0.5 mg INH Q6R [facility] Stop: 09/24/21 18:59 Last Admin: 09/02/21 07:17 Dose: 0.5 mg Documented by: Levalbuterol HCl (Levalbuterol Hcl 0.63 Mg/3 Ml Neb) 0.63 mg NEB Q6R [facility] Stop: 09/24/21 18:59 Last Admin: 09/02/21 07:17 Dose: 0.63 mg Documented by: Lorazepam (Lorazepam 0.5 Mg Tab) 0.5 mg SL BID [facility] Stop: 09/24/21 13:20 Last Admin: 09/02/21 08:11 Dose: 0.5 mg Documented by: Metoprolol Tartrate (Metoprolol Tartrate 25 Mg Tab) 37.5 mg PO BID [facility] Stop: 09/30/21 20:59 Last Admin: 09/02/21 08:03 Dose: 37.5 mg Documented by: Miscellaneous (Stop Novasource) 1 ea N/A DAILY@0600 [facility] Stop: 09/29/21 05:59 Last Admin: 09/02/21 03:09 Dose: Not Given Documented by: Prevymis~Non- Formulary Patient's Own Med 1 ea PO DAILY [facility] Stop: 09/25/21 08:59 Last Admin: 09/02/21 08:20 Dose: Not Given Documented by: Ondansetron HCl (Ondansetron Inj 2 Mg/Ml 2 Ml Vial) 4 mg IV Q6H PRN PRN Reason: Nausea Stop: 09/24/21 13:20 Last Admin: 09/02/21 08:11 Dose: 4 mg Documented by: Pantoprazole Sodium (Pantoprazole 40 Mg Tab) 40 mg PO DAILY@1200 [facility] Stop: 09/24/21 13:20 Last Admin: 09/01/21 13:05 Dose: 40 mg Documented by: Polyethylene Glycol (Polyethylene (Miralax) 17 Gm Pack) 17 gm PO DAILY PRN PRN Reason: Constipation Stop: 09/24/21 13:20 Last Admin: 08/28/21 08:42 Dose: 17 gm Documented by: Sodium Chloride (Sodium Chlor 7% 4 Ml Neb) 4 ml NEB BIDR [facility] Stop: 09/24/21 18:59 Last Admin: 09/02/21 07:20 Dose: 4 ml Documented by: Sterile Water (Tube Feeding Water Flush) 100 ml GT Q4 [facility] Stop: 09/26/21 11:59 Last Admin: 09/02/21 07:48 Dose: Not Given Documented by: Tacrolimus (Tacrolimus 1 Mg Cap) 3 mg PO BID [facility] Stop: 09/28/21 20:59 Last Admin: 09/02/21 08:05 Dose: 3 mg Documented by: Trimethoprim/Sulfamethoxazole (Sulfa/Trimeth 400/80mg Tab) 1 tab PO MoTh@2100 [facility] Stop: 09/29/21 20:59 Last Admin: 08/30/21 20:34 Dose: 1 tab Documented by: Total Time Total Time Spent Total Time Spent (In Minutes): 60 Discharge Plan Discharge Items Patient Disposition: Transfer Acute Care Hospital Reason For Visit: copd exac, pna Discharge Diagnosis: Acute on chronic respiratory failure Bilateral lung transplant, chronic immunosuppression Bilateral pneumonia severe sepsis, resolved acute on chronic renal failure Paroxysmal atrial fibrillation Condition on Discharge: Fair Activity: Resume your previous activity Non-emergency contact: Primary Care Provider Call non-emergency contact if: you have any medication questions Follow-up/Referrals: Denise Sandoval MD, PhD [Primary Care Provider] - Diet: Heart Healthy Addtl Attending Provider Instructions: Please schedule a hospital discharge appt 2-4 wks after discharge with Dr[address] Sandoval, [facility] Nephrology, CKD clinic Please have your primary care physician order bmp and hgb Please change potassium supplement to 20 mEq DAILY on discharge, not twice daily as you had been taking prior to admission Please follow-up with your primary care physician within one week of discharge from [facility]. As your recently replaced GJ tube fell out again, please have the [facility] team reevaluate and place this while you are admitted. It was a pleasure taking care of you! Please call if you have any questions or problems. You can reach a [facility] hospitalist on duty at [facility] 24 hours a day by calling [phone]. Take care of yourself. DO [facility] Pending Studies at Discharge: No Stand-Alone Forms: My [facility] Skilled Items Patient informed of condition?: Yes DNR: No Discharge Level of Care: Other Communicable Disease: No Discharge Prognosis: Stable Lines: Peripheral IV Urinary Catheter: No Medications and DC Order Prescriptions: Continued pantoprazole [Protonix] 40 mg tablet,delayed release (DR/EC) 40 mg PO DAILY@1200 RF: 0 Domperidone 20 mg PO QID RF: 0 amitriptyline 50 mg tablet 50 mg PO HS RF: 0 tacrolimus 1 mg Capsule 4 mg PO AMHS RF: 0 citalopram 10 mg tablet 10 mg PO .DAILY AT NOON RF: 0 lorazepam 0.5 mg tablet 0.5 mg sublingual BID RF: 0 metoprolol tartrate 50 mg tablet 25 mg PO BID RF: 0 everolimus (immunosuppressive) 0.5 mg Tablet 2 mg PO BID RF: 0 azithromycin 250 mg Tablet 250 mg PO DAILY@1200 RF: 0 potassium chloride 20 mEq tablet,ER particles/crystals 20 meq PO BID RF: 0 acyclovir 400 mg tablet 400 mg PO AMHS RF: 0 hydrocortisone 10 mg tablet 20 mg PO QAM RF: 0 Prevymis 240 mg Tablet 480 mg PO DAILY RF: 0 docusate sodium [Colace] 100 mg Capsule 100 mg PO .DAILY AT NOON RF: 0 azathioprine 50 mg Tablet 50 mg PO QAM RF: 0 sulfamethoxazole-trimethoprim [Bactrim] 400-80 mg tablet 1 tab PO 2XWK RF: 0 hydrocortisone 10 mg tablet 10 mg PO BID RF: 0 Discharge Orders: Discharge Order (Routine); Ordered 09/02/21 Ordered By: Veronica Ruiz Admission Data Admit Date/Time: 08/25/21 09:54 Attending Provider: Veronica Ruiz Admit Provider: María Mcqueen Primary Care Provider: Denise Sandoval Other Providers: María Mcqueen ; Matt Madera ; [facility] ; Yuri Moore ; Bernardino Sandoval
[2021-09-02] MEDS: DOCUSATE SODIUM 100 MG CAP PO SCH (11:28)
[2021-09-02] MEDS: AZITHROMYCIN 250 MG TAB PO SCH (11:28)
[2021-09-02] MEDS: CITALOPRAM 20 MG TAB PO SCH (11:29)
[2021-09-02] MEDS: PANTOprazole 40 MG TAB PO SCH (11:29)
[2021-09-02] MEDS: NOVASOURCE RENAL 2.0 CAL 1000ML BAG JT SCH (17:05)
[2021-09-02] MEDS: SULFA/TRIMETH 400/80MG TAB PO SCH (19:59)
[2021-09-02] MEDS: AMITRIPTYLINE HCL 50 MG TAB PO SCH (20:02)
--- NOTE | 2021-09-02 20:49 | Hospitalist Progress Note ---
Date of Service September 02, 2021 Assessment & Plan (1) Acute on chronic respiratory failure with hypoxia: (2) Lung transplant status, bilateral: (3) Bilateral pneumonia: (4) Severe sepsis: (5) Acute on chronic renal failure: (6) Paroxysmal A-fib: Plan: Patient is a 61-year-old female with hx of bilateral lung transplant in 2019 at [facility] with complicated course including difficulty weaning off the ventilator requiring tracheostomy, recurrent pneumonia and airway stenosis with stent in right bronchus intermedius, h/o pulmonary hypertension no longer on medications, paroxysmal atrial fibrillation, CKD III, history chronic nausea and vomiting with G-J tube in place with tube feedings, anemia who presents to ED due shortness of breath and cough x2 days. Acute on chronic respiratory failure with hypoxia Bilateral pneumonia Lung transplant status, bilateral, [facility] 2019 Severe sepsis Per CMS criteria patient met severe sepsis secondary to tachycardia, tachypnea and evidence of acute on chronic renal failure CTA chest showed Slight progression of the diffuse scattered tree-in-bud and groundglass nodular airspace opacities seen throughout the lungs. This most pronounced within the lung bases. Received IV cefepime in the ER Pulm on board Azithromycin for atypical coverage Continue with Zosyn, no indication for vancomycin given MRSA is negative, today is Day 7 Nasal MRSA negative, COVID-19 PCR negative, Procalcitonin 0.38 Continue Aggressive pulmonary toilet with levalbuterol/ipratropium, flutter valve, incentive spirometry, hypertonic saline Blood cx no grrowth Continue to hold everolimus Bactrim was on hold in setting of ROYER, resumed on 08/30, now that renal function is back to baseline. admitting team Discussed with transplant team senior information developer Dr Alexsander Sharp * Recommendations are to not give IV solumedrol, continue oral hydrocortisone, stress doses if hypotensive * hold tacrolimus and everolimus until troughs come back, evero should be 3-8 and tacro 8-10 [address] Trans[address] Physician [address] Dr. Altamirano Tacrolimus level 4.6 and Everolimus level 2 Case discussed with transplant physician Dr. Mcbride on 08/30 that recommended increased the tacrolimus to 3mg BID starting tonight Continue to hold the everolimus during the infection Continue Bactrim 400/80 twice a week ( Confirmed with transplant team, she takes Bactrim on Monday and ) Acute on chronic CKD stage III BUN/creatinine 71 and 3.46 on admission [facility]r Neprhology, she is chronically ill and malnourished contributing to ROYER. Ongoing poor PO intake. Nephrology signoff DISCHARGE INSTRUCTIONS: -needs hospital d/c appt 2-4 wks after d/c w/ (Kady Sandoval MD, [facility] Nephrology) -needs bmp and hgb to be ordered as off site lab by [facility] Nephro RN -immunosuppression as per [facility] lung transplant team -d/c on potassium supplement 20 mEq DAILY, not bid as prior to admission, UNLESS K running consistently > 4 in house while back on bactrim -will need neph f/u w/ me after d/c in CKD clinic Elevated trop Demand ischemia in the setting of ROYER and hypoxia trop peaked to 0.09, then trending down to 0.07 Denies any chest pain EKG showed no acute ischemic changes No futher workup Hyponatremia likely due to poor intake received IVF, reesolved to normal range. Poor PO intake GT tube accidentally removed during PT this admission GI recommended to consult surgery GT was replaced by general Surgery team on 08/31 An 18F G-tube was placed into the patient's stoma at bedside Unfortunately the patient accidentally pulled this out of position overnight on 09/02. Consider replacement at [facility] after transfer Chronic Anemia in setting of chronic disease Anemia of acute blood loss Hgb dropped from 8.8 to 6 S/P 1 unit PRBC on 08/26 Hgb 8.2 today Continue to hold Heparin sub No sign of active bleeding stable but low. Cont outpatient montioring. DVT ppx: SQ Heparin on hold due too low hemoglobin I spoke with Dr. Foster from [facility] Pulmonology on 09/02 and we discussed her case in detail. Given that she is requiring consistent oxygen, not quite to her baseline breathing after a full course of Zosyn and may need further treatment considerations by their team, we have decided on an inpatient transfer to [facility]. This will be in an effort to get her an inpatient bronchoscopy in lieu of the outpatient broch that was originally scheduled for this week. I spoke with her dewayned and explained the plan. He is in agreement. Will transfer the patient in stable condition when transport is available. Veronica Ruiz DO [facility] Hospitalist Admission and Anticipated Discharge Date Admission Date: August 25, 2021 Subjective 61 yo bilateral lung transplant patient presents for progressive SOB and cough after recent hospitalization in Jul 2021 (discharged 07/23/21). She reports not feeling as though she ever completely improved. She reports a gradual decline since leaving the hospital in Jul and was losing weight, so she went back to supplemental tube feedings at night and came to the hospital. She has been treated now with another week of IV antibiotics and reports that her breathing is gradually improving but is not back to her baseline. She doesn't feel ready to go home yet. afebrile she has been up and walking with walker which is her baseline. denies pain Doing well with the PEG tube placed by surgery yesterday Physical Exam Physical Exam: CONSTITUTIONAL: WNWD, vitals as above, generally NAD EYES: normal conjunctivae, no scleral icterus ENT: external ear and nose normal, MMM NECK: trachea midline, RESPIRATORY: wheezing and coarse rhonchi throughout all lung freitas, although her respiratory effort, no increased respiratory effort at rest. Does appear to have some conversational dyspnea. CARDIOVASCULAR: regular rate and rhythm, S1 and 2 heard without murmurs, gallops or rubs, no JVD, no peripheral edema CHEST: inspection of chest was normal GASTROINTESTINAL: soft, nontender, ND, no guarding MUSCULOSKELETAL: strength 5/5 throughout, head is normocephalic and atraumatic SKIN: warm and dry, NEUROLOGIC: CN 2-12 grossly intact, no sensory deficit, normal cognition, normal speech, no tremor PSYCHIATRIC: alert cooperative and oriented to person, place and time. Results & Data Results & Data ([facility]) Vital Signs (Past 12 Hours) Vital Signs Temp Pulse Pulse Resp BP BP Pulse Ox 09/02/21 19:45 37.0 C 120 H 18 120/72 97 09/02/21 19:25 116 H 26 H 96 09/02/21 15:41 36.8 C 122 H 17 125/79 97 09/02/21 14:20 130 H 09/02/21 13:32 119 H 18 98 09/02/21 11:33 36.8 C 96 H 16 139/84 97 Medications Administered Current Inpatient Medications Acetaminophen (Acetaminophen 325 Mg Tab) 650 mg PO Q4H PRN PRN Reason: Pain or Fever Stop: 09/24/21 13:20 Acyclovir (Acyclovir 400 Mg Tab) 400 mg PO [facility]; Protocol Stop: 09/24/21 20:59 Last Admin: 09/02/21 19:56 Dose: 400 mg Documented by: Amitriptyline HCl (Amitriptyline Hcl 50 Mg Tab) 50 mg PO HS [facility] Stop: 09/24/21 20:59 Last Admin: 09/02/21 20:02 Dose: 50 mg Documented by: Azathioprine (Azathioprine 50 Mg Tab) 50 mg PO QAM [facility] Stop: 09/25/21 08:59 Last Admin: 09/02/21 08:08 Dose: 50 mg Documented by: Azithromycin (Azithromycin 250 Mg Tab) 250 mg PO DAILY@1200 [facility] Stop: 09/24/21 13:59 Last Admin: 09/02/21 11:28 Dose: 250 mg Documented by: Benzonatate (Benzonatate 100 Mg Capsule) 100 mg PO TID [facility] Stop: 09/24/21 13:59 Last Admin: 09/02/21 20:06 Dose: 100 mg Documented by: Citalopram Hydrobromide (Citalopram 20 Mg Tab) 10 mg PO 1200 [facility] Stop: 09/24/21 13:59 Last Admin: 09/02/21 11:29 Dose: 10 mg Documented by: Docusate Sodium (Docusate Sodium 100 Mg Cap) 100 mg PO 1200 [facility] Stop: 09/24/21 13:59 Last Admin: 09/02/21 11:28 Dose: Not Given Documented by: Enteral Nutritional Formula (Novasource Renal 2.0 Fredrick 1000ml Bag) 1,000 ml JT TODAY@1800 [facility]; Protocol Stop: 09/28/21 17:59 Last Admin: 09/02/21 17:05 Dose: Not Given Documented by: Guaifenesin (Guaifenesin 600 Mg Tabcr) 600 mg PO Q12 [facility] Stop: 09/24/21 20:59 Last Admin: 09/02/21 20:02 Dose: 600 mg Documented by: Heparin Sodium (Porcine) (Heparin Sod 5,000 Unit/0.5 Ml Vial) 5,000 units SQ Q12 [facility] Stop: 09/24/21 20:59 Last Admin: 08/25/21 20:47 Dose: 5,000 units Documented by: Hydrocortisone (Hydrocortisone 10 Mg Tab) 10 mg PO BID@1200,2100 [facility] Stop: 09/24/21 13:59 Last Admin: 09/02/21 20:01 Dose: 10 mg Documented by: Hydrocortisone (Hydrocortisone 10 Mg Tab) 20 mg PO QAM [facility] Stop: 09/25/21 08:59 Last Admin: 09/02/21 08:08 Dose: 20 mg Documented by: Promethazine HCl 6.25 mg/ (Sodium Chloride) 50.25 mls @ 201 mls/hr IV Q8H PRN PRN Reason: Nausea And Vomiting Stop: 09/26/21 15:29 Ipratropium Flint (Ipratropium [place] Neb Soln 0.02% 2.5 Ml Vial) 0.5 mg INH Q6R [facility] Stop: 09/24/21 18:59 Last Admin: 09/02/21 19:25 Dose: 0.5 mg Documented by: Levalbuterol HCl (Levalbuterol Hcl 0.63 Mg/3 Ml Neb) 0.63 mg NEB Q6R [facility] Stop: 09/24/21 18:59 Last Admin: 09/02/21 19:25 Dose: 0.63 mg Documented by: Lorazepam (Lorazepam 0.5 Mg Tab) 0.5 mg SL BID [facility] Stop: 09/24/21 13:20 Last Admin: 09/02/21 20:06 Dose: 0.5 mg Documented by: Metoprolol Tartrate (Metoprolol Tartrate 25 Mg Tab) 37.5 mg PO BID [facility] Stop: 09/30/21 20:59 Last Admin: 09/02/21 19:59 Dose: 37.5 mg Documented by: Miscellaneous (Stop Novasource) 1 ea N/A DAILY@0600 [facility] Stop: 09/29/21 05:59 Last Admin: 09/02/21 03:09 Dose: Not Given Documented by: Prevymis~Non- Formulary Patient's Own Med 1 ea PO DAILY [facility] Stop: 09/25/21 08:59 Last Admin: 09/02/21 08:20 Dose: Not Given Documented by: Ondansetron HCl (Ondansetron Inj 2 Mg/Ml 2 Ml Vial) 4 mg IV Q6H PRN PRN Reason: Nausea Stop: 09/24/21 13:20 Last Admin: 09/02/21 18:45 Dose: 4 mg Documented by: Pantoprazole Sodium (Pantoprazole 40 Mg Tab) 40 mg PO DAILY@1200 [facility] Stop: 09/24/21 13:20 Last Admin: 09/02/21 11:29 Dose: 40 mg Documented by: Polyethylene Glycol (Polyethylene (Miralax) 17 Gm Pack) 17 gm PO DAILY PRN PRN Reason: Constipation Stop: 09/24/21 13:20 Last Admin: 08/28/21 08:42 Dose: 17 gm Documented by: Sodium Chloride (Sodium Chlor 7% 4 Ml Neb) 4 ml NEB BIDR [facility] Stop: 09/24/21 18:59 Last Admin: 09/02/21 20:08 Dose: Not Given Documented by: Sterile Water (Tube Feeding Water Flush) 100 ml GT Q4 [facility] Stop: 09/26/21 11:59 Last Admin: 09/02/21 19:56 Dose: Not Given Documented by: Tacrolimus (Tacrolimus 1 Mg Cap) 3 mg PO BID [facility] Stop: 09/28/21 20:59 Last Admin: 09/02/21 19:59 Dose: 3 mg Documented by: Trimethoprim/Sulfamethoxazole (Sulfa/Trimeth 400/80mg Tab) 1 tab PO MoTh@2100 [facility] Stop: 09/29/21 20:59 Last Admin: 09/02/21 19:59 Dose: 1 tab Documented by:
== END 2021-09-02 08:20 | disposition short-term general hospital (02) | DRG 205 ==
LOC: ED 07:51 → EDINP 09:54 → SUATTDRO 09:54 → 2S 16:20

== ENCOUNTER 2021-10-23 17:39 | Inpatient (IN) ==
[2021-10-23] MEDS ORDERED: methylPREDNISolone 125 MG/2 ML VIAL IV STA (18:05)
[2021-10-23] MEDS ORDERED: ALBUT/IPRATROP 3MG/0.5MG NEB 3 ML VIAL NEB STA (18:05)
[2021-10-23] MEDS ORDERED: guaiFENesin 600 MG TABCR PO STA (18:05)
[2021-10-23] MEDS ORDERED: SODIUM CHLORIDE 0.9% 500 ML IV ONE ×2 (18:07→21:17)
--- NOTE | 2021-10-23 18:20 | Emergency Department Note ---
Impression & Plan Chronic respiratory failure with hypoxia and hypercapnia, COPD exacerbation, Dependence on supplemental oxygen, Lung transplant status, bilateral ED Provider Note NAME: ANTWON TAI AGE: 61 SEX: F ARRIVES VIA: Ambulance INFORMANT: Patient ED PROVIDER(S): Alfonso Ku MD CHIEF COMPLAINT: SOB, referred. PLAN: Disposition: Admit MEDICAL DECISION MAKING: The patient is a pleasant 61-year-old woman with a past medical history of chronic respiratory failure, bronchiectasis, s/p double lung transplant at [facility] November 2019, CKD, gastroparesis with history of gastric tube for 2 years with her report of recent transition to GJ tube 6 weeks ago after being transferred and admitted to [facility] for pneumonia. She describes that this change was made due to suspicion that she was having aspiration provoking pneumonia. She was seen in the emergency department on 10/14 by this provider after the patient accidentally displaced her GJ tube. Case was reviewed with her transplant team and a temporary gastric tube was placed until IR placement of GJ tube could be arranged which the patient reports she did have successfully done on Monday. Unfortunately, the patient reports that she did not see her transplant team because it was a long day if he did not want to wait and it was unclear of when their appointment actually was though she admits that she missed numerous calls on her phone that were listed at [facility]. She reports her shortness of breath has progressively worsened over the past week but does admit that instead of using her nebulizer treatments 3 times daily as she is indicated she is only been doing it once a day and reports that this is because she "gets busy". He reports she has not been venting her gastric tu be as she typically would do because she was not given a bag to connect to it. She denies any fevers, chills, vomiting, diarrhea or urinary symptoms. Of note, the patient's [facility] home RN did call into the emergency department and communicated their concern that the patient would benefit from group home placement due to her frequent issues of noncompliance. Patient reports she is aware of this concern and is open to the idea of placement in group home at least in the short-term. On arrival the patient is chronically ill-appearing but no acute distress, afebrile with stable vital signs. She is 98% on 4 L nasal cannula. She has scattered rhonchi and wheezes of bilateral lung freitas. EKG without overt acute ischemia. Chest x-ray with question of slight pr ogression of previous bilateral airspace opacities though overall does not appear significantly changed upon my review. WBC within normal limits. H/H 7.4/23.6 similar to prior values. Platelets wit hin normal limits. Of note, entry level lab technician did not observe intracytoplasmic inclusions which raise the possibility of anaplasmosis. However her lab work is not consistent with this otherwise and there are no known exposures. However Anaplasma DNA test was ordered as a send out and is pending. Chemistry without metabolic acidosis. Creatinine 2.3 increased from patient's recent values of ~1.6. BUN/creatinine> 34, consistent with the patient's clinically dry appearance. Electrolytes without significant abnormality. Initial high- sensitivity troponin 27.8, nonspecific with delta 2-hour high-sensitivity troponin 29.3, marginally changed. BNP 274, nonspecific in the setting of the patient's CKD as well as tachycardia setting of her nebulizer treatments. Upon reevaluation the patient did report feeling improved after IV fluid hydration, Solu-Medrol, guaifenesin and DuoNeb. Heart rate had improved to the 100s. However, the patient admits that her breathing has not been doing well this week and agrees with the sentiments expressed by her home nurse that she may benefit from group home. Thus, she agrees with plan for admission for further management and possible placement. However, she does express that she does not want transfer to [place] if this is not necessary. [facility] will [facility] the patient for [facility]. Triage Nursing notes reviewed and agree them. Prior medical records reviewed Vital Signs: reviewed and remarkable for tachycardia. Differential diagnosis: Reactive airway disease, pneumonia, pneumothorax, COPD, CHF, infections, cardiac ischemia, pulmonary embolism, musculoskeletal, gastrointestinal, as well as other pathologies. ER treatment provided: See below. Diagnostics interpreted by me: Cardiac Monitoring: An order for continuous cardiac monitoring was placed and demonstrated sinus tachycardia, 119 bpm, no ectopy. Laboratory studies: See below Imaging studies: See below Consultation(s): Case was discussed with Dr. Espino [facility] who will evaluate the patient for admission. HPI: The patient is a pleasant 61-year-old woman with a past medical history of chronic respiratory failure, bronchiectasis, s/p double lung transplant at [facility] [place] November 2019, CKD, gastroparesis with history of gastric tube for 2 y ears with her report of recent transition to GJ tube 6 weeks ago after being transferred and admitted to [facility] for pneumonia. She describes that this change was made due to suspicion that she was having aspiration provoking pneumonia. She was seen in the emergency department on 10/14 by this provider after the patient accidentally displaced her GJ tube. Case was reviewed with her mosquera splant team and a temporary gastric tube was placed until IR placement of GJ tube could be arranged which the patient reports she did have successfully done on Monday. Unfortunately, the patient reports that she did not see her transplant team because it was a long day if he did not want to wait and it was unclear of when their appointment actually was though she admits that she missed numerous calls on her phone that were listed at [facility]. She reports her shortness of breath has progressively worsened over the past week but does admit that instead of using her nebulizer treatments 3 times daily as she is indicated she is only been doing it once a day and reports that this is because she "gets busy". He reports she has not been venting her gastric tube as she typically would do because she was not given a bag to connect to it. She denies any fevers, chills, vomiting, diarrhea or urinary symptoms. Of note, the patient's [facility] home RN did call into the emergency department and communicated their concern that the patient would benefit from group home placement due to her frequent issues of noncompliance. Patient reports she is aware of this concern and is open to the idea of placement in group home at least in the short-term. ROS: See above HPI for pertinent positives & negatives. A total of 10 systems reviewed and were otherwise negative. VITALS:See Below PHYSICAL EXAMINATION: GENERAL: Awake, alert, chronically ill-appearing, in no distress HENT: Normocephalic, atraumatic. Oropharynx with dry mucous membranes and otherwise unremarkable. EYES: Normal conjunctiva. Sclera non-icteric. NECK: Supple. No nuchal rigidity. FROM. No JVD. RESPIRATORY: Scattered rhonchi and wheezes of bilateral lung freitas. No significant increased WOB. CARDIAC: Tachycardic rate, normal rhythm. Extremities warm and well perfused. Pulses equal. ABDOMEN: Soft, non-distended. No tenderness to palpation. No rebound or guarding. No masses. RECTAL: Deferred. MUSCULOSKELETAL: Chest examination reveals no tenderness. The back is symmetrical on inspection without obvious abnormality. There is no CVA tenderness to palpation. No joint edema. LOWER EXTREMITIES: Calves are equal size bilaterally and non-tender. No edema. No discoloration. NEURO: Normal sensorium. No sensory or motor deficits noted. SKIN: No rash or jaundice noted. Alfonso Ku MD Past Med/Surg History Medical History ASCUS of cervix with negative high risk HPV Cholesteatoma of both middle ears Chronic mastoiditis Chronic obstructive pulmonary disease Chronic respiratory failure with hypoxia and hypercapnia Chronic tympanomastoiditis CKD (chronic kidney disease) stage 4, GFR 15-29 ml/min Encounter for mastoidectomy cavity debridement History of actinic keratosis Hypercholesterolemia Hypoxia LGSIL on Pap smear of cervix Osteoporosis Paroxysmal A-fib Postmenopausal Pulmonary emphysema Pulmonary hypertension Surgical History History of colposcopy History of ear surgery Hx of colonoscopy Hx of tonsillectomy Lung transplant status, bilateral 11/11/2019 [facility] [place] Lung transplant status, bilateral S/P cardiac cath S/P dilation and curettage S/P wisdom tooth extraction Family History Mother Adenocarcinoma of lung Osteoporosis Rheumatoid arthritis Lung cancer Myocardial infarction Aunt Breast cancer maternal aunt Grandfather (Paternal) Colorectal cancer Father Lung cancer Denies family history of Ovarian cancer Social History Smoking Status: Never smoker Tobacco Type: Cigarettes Cigarettes Per Day: 1 ppd for 23 years; Second Hand Exposure: No; Hx Alcohol Use: No Hx Substance Use: No Preferred Language: Malay Communication Ability: Effective 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: No Beliefs That Will Affect Care: None marital status: Current Living Situation: Spouse Feels Safe at Home: Yes Assistive Devices: Oxygen - Continuous Allergies Allergies Allergy/AdvReac Type Severity Reaction Status Date / Time glimepiride AdvReac Severe Fainting Verified 10/23/21 20:07 Home Meds Home Medications Medication Instructions Recorded Confirmed pantoprazole 40 mg tablet,delayed 40 mg PO DAILY@1200 01/24/20 10/23/21 release (Protonix) sulfamethoxazole 400 1 tab PO 2XWK 09/08/20 10/23/21 mg-trimethoprim 80 mg tablet (Bactrim) Domperidone 40 mg PO QID 10/21/20 10/23/21 amitriptyline 50 mg tablet 50 mg PO HS 02/09/21 10/23/21 tacrolimus 1 mg capsule, See Rx Instructions .ROUTE .COMPLEX 02/09/21 10/23/21 immediate-release citalopram 10 mg tablet 10 mg PO .DAILY AT NOON 05/07/21 10/23/21 everolimus (immunosuppressive) 0.5 2 mg PO AMPM 05/07/21 10/23/21 mg tablet azithromycin 250 mg tablet 250 mg PO DAILY@1200 05/18/21 10/23/21 hydrocortisone 10 mg tablet 10 mg PO BID 07/12/21 10/23/21 acyclovir 400 mg tablet 400 mg PO AMHS 08/25/21 10/23/21 hydrocortisone 10 mg tablet 20 mg PO QAM 08/25/21 10/23/21 guaifenesin 600 mg tablet, 600 mg PO Q12H 10/23/21 10/23/21 extended release 12 hr (Mucinex) letermovir 480 mg tablet (Prevymis) 480 mg PO QAM 10/23/21 10/23/21 metoprolol tartrate 25 mg tablet 25 mg PO BID 10/23/21 10/23/21 sennosides 8.6 mg tablet (senna) 17.2 mg PO HS 10/23/21 10/23/21 Results & Data (ED) Vital Signs Vital Signs - 24 hr 10/23/21 17:48 10/23/21 17:55 10/23/21 19:06 Temperature 37.2 C Temperature Source Oral Pulse Rate 126 H 127 H Pulse Rate [Left Radial] 127 H 123 H Pulse Rhythm Regular Pulse Rhythm [Left Radial] Regular Pulse Strength Normal Respiratory Rate 26 H 26 H 24 Respiratory Effort / Characteristics Non-Labored Non-Labored Respiratory Depth Normal Normal Respiratory Pattern Regular Regular Blood Pressure 104/78 Blood Pressure [Right Arm] Blood Pressure Mean 86 Blood Pressure Mean [Right Arm] Blood Pressure Position Lying Pulse Oximetry 99 98 97 Oxygen Delivery Method Nasal Cannula Nasal Cannula Nasal Cannula Oxygen Flow Rate 4 4 4 Sepsis Recent Fever Within 48 Hours No Sepsis New/Unexplained Change in Mental Status No Sepsis Action Taken by Nursing No Action Required 10/23/21 20:44 10/23/21 21:59 Temperature Temperature Source Pulse Rate Pulse Rate [Left Radial] 110 H 106 H Pulse Rhythm Pulse Rhythm [Left Radial] Pulse Strength Respiratory Rate 22 22 Respiratory Effort / Characteristics Respiratory Depth Respiratory Pattern Blood Pressure Blood Pressure [Right Arm] 150/93 H 146/85 H Blood Pressure Mean Blood Pressure Mean [Right Arm] 112 105 Blood Pressure Position Pulse Oximetry 100 98 Oxygen Delivery Method Nasal Cannula Nasal Cannula Oxygen Flow Rate 4 4 Sepsis Recent Fever Within 48 Hours Sepsis New/Unexplained Change in Mental Status Sepsis Action Taken by Nursing Laboratory Data Attestation: I reviewed the patient's lab results. Result diagrams: 10/23/21 18:28 10/23/21 18:28 Lab Results 10/23/21 10/23/21 10/23/21 Range/Units 18:28 18:28 18:28 WBC 7.37 (4.8-10.8) K/uL RBC 2.58 L (4.2-5.4) M/uL Hgb 7.4 L (12.0-16.0) g/dL Hct 23.6 L (37-47) % MCV 91.5 (80-100) fL MCH 28.7 (25-34) pg MCHC 31.4 L (32-36) g/dL RDW Std Deviation 53.1 H (36.4-46.3) fL RDW Coeff of Janina 16.0 H (11.5-14.5) % Plt Count 159 (130-400) K/uL MPV 10.0 (7.4-10.4) fL Immature Gran % (Auto) 1.1 % Neut % (Auto) 83.8 % Lymph % (Auto) 6.9 % Dixie % (Auto) 7.2 % Eos % (Auto) 0.9 % Baso % (Auto) 0.1 % Neut # (Auto) 6.17 (1.4-6.5) K/uL Lymph # (Auto) 0.51 L (1.2-3.4) K/uL Dixie # (Auto) 0.53 (0.11-0.59) K/uL Eos # (Auto) 0.07 (0-0.5) K/uL Baso # (Auto) 0.01 (0-0.2) K/uL Immature Gran # (Auto) 0.08 H (0.00-0.02) K/uL Dohle Bodies 2+ Basophilic Stippling 1+ VBG pH (7.36-7.41) VBG pCO2 (38-50) mmHg VBG pO2 mmHg VBG HCO3 mmol/L VBG O2 Saturation % VBG Base Excess mEq/L Barometric Pressure mm/Hg Sodium (136-145) mmol/L Potassium (3.5-5.1) mmol/L Chloride (98-107) mmol/L Carbon Dioxide (21-32) mmol/L Anion Gap (3-11) BUN (6-23) mg/dl Creatinine (0.6-1.2) mg/dl Est Cr Clr Drug Dosing ml/min Est GFR ( Amer) ml/min Est GFR (Non-Af Amer) ml/min BUN/Creatinine Ratio (10-20) Glucose (70-99(Fasting)) mg/dl Lactate (0.4-2.0) mmol/L Calcium (8.5-10.1) mg/dl Phosphorus (2.5-4.9) mg/dl Magnesium (1.7-2.4) mg/dl Total Bilirubin (0.2-1.0) mg/dl AST (13-39) U/L ALT (7-52) U/L Alkaline Phosphatase (34-104) U/L Troponin I High Sens 27.8 H (0-14) pg/ml B-Natriuretic Peptide 274 H (0-100) pg/ml Total Protein (6.0-8.3) gm/dl Albumin (3.4-5.0) gm/dl Globulin (2.5-4.0) gm/dl Albumin/Globulin Ratio (0.9-2) Lipase (11-82) U/L Procalcitonin (0-0.5) ng/ml SARS-CoV-2, RNA, NAAT (NEGATIVE) 10/23/21 10/23/21 10/23/21 Range/Units 18:28 18:29 20:42 WBC (4.8-10.8) K/uL RBC (4.2-5.4) M/uL Hgb (12.0-16.0) g/dL Hct (37-47) % MCV (80-100) fL MCH (25-34) pg MCHC (32-36) g/dL RDW Std Deviation (36.4-46.3) fL RDW Coeff of Janina (11.5-14.5) % Plt Count (130-400) K/uL MPV (7.4-10.4) fL Immature Gran % (Auto) % Neut % (Auto) % Lymph % (Auto) % Dixie % (Auto) % Eos % (Auto) % Baso % (Auto) % Neut # (Auto) (1.4-6.5) K/uL Lymph # (Auto) (1.2-3.4) K/uL Dixie # (Auto) (0.11-0.59) K/uL Eos # (Auto) (0-0.5) K/uL Baso # (Auto) (0-0.2) K/uL Immature Gran # (Auto) (0.00-0.02) K/uL Dohle Bodies Basophilic Stippling VBG pH (7.36-7.41) VBG pCO2 (38-50) mmHg VBG pO2 mmHg VBG HCO3 mmol/L VBG O2 Saturation % VBG Base Excess mEq/L Barometric Pressure mm/Hg Sodium 133 L (136-145) mmol/L Potassium 3.8 (3.5-5.1) mmol/L Chloride 93 L (98-107) mmol/L Carbon Dioxide 30 (21-32) mmol/L Anion Gap 10 (3-11) BUN 79 H (6-23) mg/dl Creatinine 2.32 H (0.6-1.2) mg/dl Est Cr Clr Drug Dosing 21.3 ml/min Est GFR ( Amer) 25.1 ml/min Est GFR (Non-Af Amer) 21.7 ml/min BUN/Creatinine Ratio 34.1 H (10-20) Glucose 190 H (70-99(Fasting)) mg/dl Lactate (0.4-2.0) mmol/L Calcium 10.2 H (8.5-10.1) mg/dl Phosphorus 3.5 (2.5-4.9) mg/dl Magnesium 2.2 (1.7-2.4) mg/dl Total Bilirubin 0.4 (0.2-1.0) mg/dl AST 22 (13-39) U/L ALT 11 (7-52) U/L Alkaline Phosphatase 79 (34-104) U/L Troponin I High Sens 29.3 H (0-14) pg/ml B-Natriuretic Peptide (0-100) pg/ml Total Protein 7.1 (6.0-8.3) gm/dl Albumin 3.6 (3.4-5.0) gm/dl Globulin 3.5 (2.5-4.0) gm/dl Albumin/Globulin Ratio 1.0 (0.9-2) Lipase < 3 L (11-82) U/L Procalcitonin 0.44 (0-0.5) ng/ml SARS-CoV-2, RNA, NAAT (NEGATIVE) 10/23/21 10/23/21 10/23/21 Range/Units 21:28 21:46 21:46 WBC (4.8-10.8) K/uL RBC (4.2-5.4) M/uL Hgb (12.0-16.0) g/dL Hct (37-47) % MCV (80-100) fL MCH (25-34) pg MCHC (32-36) g/dL RDW Std Deviation (36.4-46.3) fL RDW Coeff of Janina (11.5-14.5) % Plt Count (130-400) K/uL MPV (7.4-10.4) fL Immature Gran % (Auto) % Neut % (Auto) % Lymph % (Auto) % Dixie % (Auto) % Eos % (Auto) % Baso % (Auto) % Neut # (Auto) (1.4-6.5) K/uL Lymph # (Auto) (1.2-3.4) K/uL Dixie # (Auto) (0.11-0.59) K/uL Eos # (Auto) (0-0.5) K/uL Baso # (Auto) (0-0.2) K/uL Immature Gran # (Auto) (0.00-0.02) K/uL Dohle Bodies Basophilic Stippling VBG pH 7.33 L (7.36-7.41) VBG pCO2 60 H (38-50) mmHg VBG pO2 80 mmHg VBG HCO3 31 mmol/L VBG O2 Saturation 91.5 % VBG Base Excess 3.5 mEq/L Barometric Pressure 733.0 mm/Hg Sodium (136-145) mmol/L Potassium (3.5-5.1) mmol/L Chloride (98-107) mmol/L Carbon Dioxide (21-32) mmol/L Anion Gap (3-11) BUN (6-23) mg/dl Creatinine (0.6-1.2) mg/dl Est Cr Clr Drug Dosing ml/min Est GFR ( Amer) ml/min Est GFR (Non-Af Amer) ml/min BUN/Creatinine Ratio (10-20) Glucose (70-99(Fasting)) mg/dl Lactate 0.3 L (0.4-2.0) mmol/L Calcium (8.5-10.1) mg/dl Phosphorus (2.5-4.9) mg/dl Magnesium (1.7-2.4) mg/dl Total Bilirubin (0.2-1.0) mg/dl AST (13-39) U/L ALT (7-52) U/L Alkaline Phosphatase (34-104) U/L Troponin I High Sens (0-14) pg/ml B-Natriuretic Peptide (0-100) pg/ml Total Protein (6.0-8.3) gm/dl Albumin (3.4-5.0) gm/dl Globulin (2.5-4.0) gm/dl Albumin/Globulin Ratio (0.9-2) Lipase (11-82) U/L Procalcitonin (0-0.5) ng/ml SARS-CoV-2, RNA, NAAT NEGATIVE (NEGATIVE) Administered Medications Sodium Chloride (Nss 1000ml) 1,000 mls @ 75 mls/hr IV .[id number] ONE Stop: 10/24/21 11:53 Last Admin: 10/23/21 23:56 Dose: 75 mls/hr Documented by: [id number] Discontinued Medications Albuterol (Albut/Ipratrop 3mg/0.5mg Neb 3 Ml Vial) 3 ml NEB NOW STA; Protocol Stop: 10/23/21 18:06 Last Admin: 10/23/21 18:22 Dose: 3 ml Documented by: [id number] Doxycycline Hyclate (Doxycycline Hyclate 100 Mg Cap) 100 mg PO NOW STA Stop: 10/23/21 22:20 Last Admin: 10/23/21 23:54 Dose: 100 mg Documented by: [id number] Guaifenesin (Guaifenesin 600 Mg Tabcr) 600 mg PO NOW STA Stop: 10/23/21 18:06 Last Admin: 10/23/21 18:27 Dose: 600 mg Documented by: [id number] Sodium Chloride (Nss) 500 mls @ 999 mls/hr IV .Q31M ONE Stop: 10/23/21 18:37 Last Infusion: 10/23/21 19:21 Dose: 0 mls/hr Documented by: [id number] Admin: 10/23/21 18:21 Dose: 999 mls/hr Documented by: [id number] Sodium Chloride (Nss) 500 mls @ 999 mls/hr IV .Q31M ONE Stop: 10/23/21 21:47 Last Admin: 10/23/21 21:27 Dose: 999 mls/hr Documented by: [id number] Acetaminophen (Ofirmev) 1,000 mg in 100 mls @ 400 mls/hr IV NOW STA Stop: 10/23/21 21:42 Last Admin: 10/23/21 21:34 Dose: 400 mls/hr Documented by: [id number] Piperacillin Sod/Tazobactam Sod (Zosyn) 4.5 gm in 120 mls @ 240 mls/hr IV NOW ONE Stop: 10/23/21 22:47 Last Admin: 10/23/21 23:54 Dose: 240 mls/hr Documented by: [id number] Insulin Glargine (Insulin Glargine Solostar 100 Units/Ml 3 Ml Pen) 5 units SC NOW STA Stop: 10/23/21 22:35 Last Admin: 10/23/21 23:55 Dose: Not Given Documented by: [id number] Methylprednisolone (Methylprednisolone 125 Mg/2 Ml Vial) 125 mg IV NOW STA Stop: 10/23/21 18:06 Last Admin: 10/23/21 18:22 Dose: 125 mg Documented by: [id number] Metoprolol Tartrate (Metoprolol Tartrate 25 Mg Tab) 25 mg PO NOW STA Stop: 10/23/21 21:50 Last Admin: 10/23/21 22:21 Dose: 25 mg Documented by: [id number] Potassium Chloride (Potassium Chloride Pwd 20 Meq Pack) 40 meq PO NOW STA Stop: 10/23/21 22:21 Last Admin: 10/23/21 23:52 Dose: 40 meq Documented by: [id number] Imaging Data Radiologist's Impression: Chest X-Ray 10/23/21 17:43 XR chest 1V portable CLINICAL HISTORY: Atypical chest pain. COMPARISON STUDY: Chest radiograph and chest CT August 25, 2021. FINDINGS: Postoperative findings from double lung transplant are noted. Cardiomegaly is unchanged. A stent within the right mainstem bronchus is noted. No pneumothorax or pleural effusion is identified. Patchy bilateral airspace opacities are noted, including right midlung opacity. There is minimal right basilar opacity. IMPRESSION: 1. Slight progression of patchy bilateral airspace opacities. These are nonspecific although favor an infectious process. Radiographic follow-up is recommended. 2. Stable cardiomegaly. ACT 112: Negative or not required by law. Electronically signed by: Albin Rojo M.D. 10/23/2021 6:30 PM Discharge Plan Visit Data Chief Complaint: Shortness of Breath/Dyspnea ED Provider: Alfonso Ku Discharge Problem: Chronic respiratory failure with hypoxia and hypercapnia, COPD exacerbation, Dependence on supplemental oxygen, Lung transplant status, bilateral Discharge Instructions Interventions: ED Discharge Assessment Last Done: 10/24/21 00:08
--- NOTE | 2021-10-23 18:32 | XRay Report ---
XR chest 1V portable CLINICAL HISTORY: Atypical chest pain. COMPARISON STUDY: Chest radiograph and chest CT August 25, 2021. FINDINGS: Postoperative findings from double lung transplant are noted. Cardiomegaly is unchanged. A stent within the right mainstem bronchus is noted. No pneumothorax or pleural effusion is identified. Patchy bilateral airspace opacities are noted, including right midlung opacity. There is minimal rig ht basilar opacity. IMPRESSION: 1. Slight progression of patchy bilateral airspace opacities. These are nonspecific although favor an infectious process. Radiographic follow-up is recommended. 2. Stable cardiomegaly. ACT 112: Negative or not required by law. Electronically signed by: Albin Rojo M.D. 10/23/2021 6:30 PM
[2021-10-23 18:45] LABS: Basophils # (auto) 0.01 K/uL (0-0.2); Basophils % (auto) 0.1 %; Eosinophils # (auto) 0.07 K/uL (0-0.5); Eosinophils % (auto) 0.9 %; Hematocrit (blood only) 23.6 % (37-47); Hemoglobin 7.4 g/dL (12.0-16.0); Immature Granulocytes # (auto) 0.08 K/uL (0.00-0.02); Immature Granulocytes % (auto) 1.1 %; Lymphocytes # (auto) 0.51 K/uL (1.2-3.4); Lymphocytes % (auto) 6.9 %; Mean Corpuscular Hemoglobin 28.7 pg (25-34); Mean Corpuscular Hgb Conc 31.4 g/dL (32-36); Mean Corpuscular Volume 91.5 fL (80-100); Monocytes # (auto) 0.53 K/uL (0.11-0.59); Monocytes % (auto) 7.2 %; Neutrophils # (auto) 6.17 K/uL (1.4-6.5); Neutrophils % (auto) 83.8 %; Platelet Count 159 K/uL (130-400); RDW Standard Deviation 53.1 fL (36.4-46.3); Red Blood Count 2.58 M/uL (4.2-5.4); White Blood Count 7.37 K/uL (4.8-10.8)
[2021-10-23 19:31] LABS: Anion Gap 10 (3-11); BUN Creatinine Ratio 34.1 (10-20); Blood Urea Nitrogen 79 mg/dl (6-23); Calcium 10.2 mg/dl (8.5-10.1); Carbon Dioxide 30 mmol/L (21-32); Chloride 93 mmol/L (98-107); Creatinine Clr Calc Pharmacy 21.3 ml/min; Est GFR (African American) 25.1 ml/min; Est GFR (Non-African American) 21.7 ml/min; Glucose 190 mg/dl (70-99(Fasting)); Potassium 3.8 mmol/L (3.5-5.1); Sodium 133 mmol/L (136-145)
[2021-10-23 19:34] LABS: Basophilic Stippling 1+; Dohle Bodies 2+
[2021-10-23 19:35] LABS: Alanine Aminotransferase 11 U/L (7-52); Albumin Level 3.6 gm/dl (3.4-5.0); Alkaline Phosphatase 79 U/L (34-104); Aspartate Aminotransferase 22 U/L (13-39); Bilirubin,Total 0.4 mg/dl (0.2-1.0); Globulin 3.5 gm/dl (2.5-4.0); Lipase < 3 U/L (11-82); Magnesium 2.2 mg/dl (1.7-2.4); Phosphorus 3.5 mg/dl (2.5-4.9); Total Protein 7.1 gm/dl (6.0-8.3)
[2021-10-23] MEDS ORDERED: ACETAMINOPHEN 1,000 MG/100 ML VIAL IV STA (21:28)
[2021-10-23] MEDS ORDERED: METOPROLOL TARTRATE 25 MG TAB PO STA (21:49)
[2021-10-23 22:07] LABS: Base Excess VBG 3.5 mEq/L; Oxygen Saturation VBG 91.5 %; pH VBG 7.33 (7.36-7.41)
[2021-10-23] MEDS ORDERED: PIPERACILL/TAZOBAC CONSULT ACTIVE PRN (22:18)
[2021-10-23] MEDS ORDERED: PIPERACILLIN/TAZOBACTAM 4.5 GM/120 ML BAG IV ONE (22:18)
[2021-10-23] MEDS ORDERED: DOXYCYCLINE HYCLATE 100 MG CAP PO STA (22:19)
[2021-10-23] MEDS ORDERED: POTASSIUM CHLORIDE PWD 20 MEQ PACK PO STA (22:20)
--- NOTE | 2021-10-23 22:20 | History & Physical Report ---
Date of Service October 23, 2021 Assessment & Plan (1) COPD exacerbation: Plan: Secondary to HCAP/possible aspiration pneumonia Immunocompromised patient hx chronic respiratory failure secondary to COPD/primary pulmonary hypertension on home O2 history bilateral lung transplant on chronic immunosuppressive/antimicrobial/antiviral regimen Possible sepsis hypertension, slight elevated PAF, patient NSR ARF on CKD secondary to illness DM2 insulin requiring, well-controlled as of recent hemoglobin A1c of 6.07 June 2021 chronic anemia, hemoglobin at baseline history poor p.o. intake status post GJ tube placement Possible functional disability past tobacco abuse Medical telemetry CS, Zosyn, Doxycycline Nebs RTC, continue hydrocortisone at current doses May need IV steroids if without improvement Pulmonary consult if without improvement Aspiration precautions, swallow eval Monitor creatinine response to IVF Appropriate to hold Bactrim suppression Rx for now until creatinine back to baseline Renal ultrasound, Nephrology consult if without improvement. Basal insulin, ISS BG goal 1 10-1 40, carb count coverage, update hemoglobin A1c PT OT eval DVT prophylaxis. Heparin subcu Full code Will request AM provider to update [facility] transplant team of patient's progress. (Dr. Maik Foster, contact #[phone]) Text document was generated using [employer] voice recognition software. It may contain grammatical or spelling errors. Kindly contact undersigned for clarification of any documentation item in question. History of Present Illness Chief Complaint: Worsening cough, shortness of breath Primary Care Provider: Jeferson Vinson MD History obtained from patient and records. Medical history significant for chronic respiratory failure secondary to COPD/primary pulmonary hypertension on home O2, history bilateral lung transplant on chronic immunosuppressive/antimicrobial/antiviral regimen, hypertension, PAF, DM2 insulin requiring, CRI (baseline creatinine 1.8 ), chronic anemia (baseline hemoglobin of 7), history poor p.o. intake status post GJ tube placement, chronic mastoiditis as per records, past tobacco abuse. Last confinement August 2021 for respiratory failure secondary to bilateral pneumonia. Patient transferred to [facility] where she was confined for 2 weeks. Patient seen at the ER last week for displaced GJ tube. Temporary gastric tube placed until follow-up at [facility] for IR placement of GJ tube following discussion with patient's [facility] Transplant team. Patient given additional instructions to schedule follow-up appointment with [facility] Transplant team. GJ tube successfully replaced outpatient at [facility] yesterday. Patient however was not able to see transplant team at [facility] due to a very long day. Worsening shortness of breath with junky cough symptoms the last few days. Occasional coughing with water and food intake. No chest pain. No fluid retention. Appetite not too good. No abdominal/flank pain. Patient also feels that she is needing help to care for self at home. Patient given Solu-Medrol and neb treatment at the ER for COPD exacerbation. Patient refused to transfer to [facility] for further evaluation by her transplant team as per ER provider. 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 Allergies Allergy/AdvReac Type Severity Reaction Status Date / Time glimepiride AdvReac Severe Fainting Verified 10/23/21 20:07 Home Medications Medication Instructions Recorded Confirmed Type pantoprazole 40 mg tablet,delayed 40 mg PO DAILY@1200 01/24/20 10/23/21 History release (Protonix) sulfamethoxazole 400 1 tab PO 2XWK 09/08/20 10/23/21 History mg-trimethoprim 80 mg tablet (Bactrim) Domperidone 40 mg PO QID 10/21/20 10/23/21 History amitriptyline 50 mg tablet 50 mg PO HS 02/09/21 10/23/21 History tacrolimus 1 mg capsule, See Rx Instructions .ROUTE .COMPLEX 02/09/21 10/23/21 History immediate-release citalopram 10 mg tablet 10 mg PO .DAILY AT NOON 05/07/21 10/23/21 History everolimus (immunosuppressive) 0.5 2 mg PO AMPM 05/07/21 10/23/21 History mg tablet azithromycin 250 mg tablet 250 mg PO DAILY@1200 05/18/21 10/23/21 History hydrocortisone 10 mg tablet 10 mg PO BID 07/12/21 10/23/21 History acyclovir 400 mg tablet 400 mg PO AMHS 08/25/21 10/23/21 History hydrocortisone 10 mg tablet 20 mg PO QAM 08/25/21 10/23/21 History guaifenesin 600 mg tablet, 600 mg PO Q12H 10/23/21 10/23/21 History extended release 12 hr (Mucinex) letermovir 480 mg tablet (Prevymis) 480 mg PO QAM 10/23/21 10/23/21 History metoprolol tartrate 25 mg tablet 25 mg PO BID 10/23/21 10/23/21 History sennosides 8.6 mg tablet (senna) 17.2 mg PO HS 10/23/21 10/23/21 History Past Med/Surg History Medical History ASCUS of cervix with negative high risk HPV Cholesteatoma of both middle ears Chronic mastoiditis Chronic obstructive pulmonary disease Chronic respiratory failure with hypoxia and hypercapnia Chronic tympanomastoiditis CKD (chronic kidney disease) stage 4, GFR 15-29 ml/min Encounter for mastoidectomy cavity debridement History of actinic keratosis Hypercholesterolemia Hypoxia LGSIL on Pap smear of cervix Osteoporosis Paroxysmal A-fib Postmenopausal Pulmonary emphysema Pulmonary hypertension Surgical History History of colposcopy History of ear surgery Hx of colonoscopy Hx of tonsillectomy Lung transplant status, bilateral 11/11/2019 [facility] [place] Lung transplant status, bilateral S/P cardiac cath S/P dilation and curettage S/P wisdom tooth extraction Family History Mother Adenocarcinoma of lung Osteoporosis Rheumatoid arthritis Lung cancer Myocardial infarction Aunt Breast cancer maternal aunt Grandfather (Paternal) Colorectal cancer Father Lung cancer Denies family history of Ovarian cancer Social History Smoking Status: Never smoker Tobacco Type: Cigarettes Cigarettes Per Day: 1 ppd for 23 years; Second Hand Exposure: No; Do You Dip or Chew Tobacco: No; Tobacco Cessation Education Requested by Patient: No Hx Alcohol Use: No Hx Substance Use: No Preferred Language: Nepalese Communication Ability: Impaired Communication Ability Comment: Hard of hearing Production 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 Required: No Beliefs That Will Affect Care: None marital status: Current Living Situation: Spouse Other Information That Helps Us Care for You: Yes (Wants us to contact her transplant team in [place]) Feels Safe at Home: Yes Safety Concerns: Feels Safe At This Time Assistive Devices: Glasses, Oxygen - Continuous and Walker Review of Systems Review of Systems: As per HPI, all other systems reviewed and negative Physical Exam Physical Exam: GENERAL: Comfortable, eating dinner, chronically ill, no respiratory distress SKIN: Pallor, warm HEENT: Bespectacled, pale palpebral conjunctivae, no ptosis, dry buccal mucosa, nasal cannula in place NECK : Supple, no tenderness CHEST : Decreased breath sounds, bilateral rhonchi, no tenderness HEART : Tachycardic, no obvious murmurs ABDOMEN: Some distention, GJ tube in place, nontender EXTREMITIES : Minimal LE swelling, no LE tenderness, no other conspicuous deformities noted NEUROLOGIC : Coherent, no facial asymmetry, no other gross focality Results & Data Results & Data ([facility]) Vital Signs (Past 12 Hours) Vital Signs Temp Pulse Pulse Resp BP BP Pulse Ox 10/23/21 21:59 106 H 22 146/85 H 98 10/23/21 20:44 110 H 22 150/93 H 100 10/23/21 19:06 123 H 24 97 10/23/21 17:55 37.2 C 127 H 26 H 104/78 98 10/23/21 17:48 126 H 127 H 26 H 99 Laboratory Results Laboratory Results WBC 7.37 K/uL (4.8-10.8) 10/23/21 18:28 RBC 2.58 M/uL (4.2-5.4) L 10/23/21 18:28 Hgb 7.4 g/dL (12.0-16.0) L 10/23/21 18:28 Hct 23.6 % (37-47) L 10/23/21 18:28 MCV 91.5 fL (80-100) 10/23/21 18:28 MCH 28.7 pg (25-34) 10/23/21 18:28 MCHC 31.4 g/dL (32-36) L 10/23/21 18:28 RDW Std Deviation 53.1 fL (36.4-46.3) H 10/23/21 18:28 RDW Coeff of Janina 16.0 % (11.5-14.5) H 10/23/21 18:28 Plt Count 159 K/uL (130-400) 10/23/21 18:28 MPV 10.0 fL (7.4-10.4) 10/23/21 18:28 Immature Gran % (Auto) 1.1 % 10/23/21 18:28 Neut % (Auto) 83.8 % 10/23/21 18:28 Lymph % (Auto) 6.9 % 10/23/21 18:28 Nance % (Auto) 7.2 % 10/23/21 18:28 Eos % (Auto) 0.9 % 10/23/21 18:28 Baso % (Auto) 0.1 % 10/23/21 18:28 Neut # (Auto) 6.17 K/uL (1.4-6.5) 10/23/21 18: Lymph # (Auto) 0.51 K/uL (1.2-3.4) L 10/23/21 18:28 Nance # (Auto) 0.53 K/uL (0.11-0.59) 10/23/21 18: Eos # (Auto) 0.07 K/uL (0-0.5) 10/23/21 18: Baso # (Auto) 0.01 K/uL (0-0.2) 10/23/21 18: Immature Gran # (Auto) 0.08 K/uL (0.00-0.02) H 10/23/21 18:28 Dohle Bodies 2+ 10/23/21 18: Basophilic Stippling 1+ 10/23/21 18:28 VBG pH 7.33 (7.36-7.41) L 10/23/21 21:46 VBG pCO2 60 mmHg (38-50) H 10/23/21 21:46 VBG pO2 80 mmHg 10/23/21 21:46 VBG HCO3 31 mmol/L 10/23/21 21:46 VBG O2 Saturation 91.5 % 10/23/21 21:46 VBG Base Excess 3.5 mEq/L 10/23/21 21:46 Barometric Pressure 733.0 mm/Hg 10/23/21 21:46 Sodium 133 mmol/L (136-145) L 10/23/21 18:28 Potassium 3.8 mmol/L (3.5-5.1) 10/23/21 18:28 Chloride 93 mmol/L (98-107) L 10/23/21 18:28 Carbon Dioxide 30 mmol/L (21-32) 10/23/21 18:28 Anion Gap 10 (3-11) 10/23/21 18:28 BUN 79 mg/dl (6-23) H 10/23/21 18:28 Creatinine 2.32 mg/dl (0.6-1.2) H 10/23/21 18:28 Est Cr Clr Drug Dosing 21.3 ml/min 10/23/21 18:28 Est GFR ( Amer) 25.1 ml/min 10/23/21 18: Est GFR (Non-Af Amer) 21.7 ml/min 10/23/21 18:28 BUN/Creatinine Ratio 34.1 (10-20) H 10/23/21 18:28 Glucose 190 mg/dl (70-99(Fasting)) H 10/23/21 18: Lactate 0.3 mmol/L (0.4-2.0) L 10/23/21 21:46 Calcium 10.2 mg/dl (8.5-10.1) H 10/23/21 18: Phosphorus 3.5 mg/dl (2.5-4.9) 10/23/21 18: Magnesium 2.2 mg/dl (1.7-2.4) 10/23/21 18:28 Total Bilirubin 0.4 mg/dl (0.2-1.0) 10/23/21 18:28 AST 22 U/L (13-39) 10/23/21 18:28 ALT 11 U/L (7-52) 10/23/21 18:28 Alkaline Phosphatase 79 U/L (34-104) 10/23/21 18:28 Troponin I High Sens 29.3 pg/ml (0-14) H 10/23/21 20:42 B-Natriuretic Peptide 274 pg/ml (0-100) H 10/23/21 18:28 Total Protein 7.1 gm/dl (6.0-8.3) 10/23/21 18:28 Albumin 3.6 gm/dl (3.4-5.0) 10/23/21 18:28 Globulin 3.5 gm/dl (2.5-4.0) 10/23/21 18:28 Albumin/Globulin Ratio 1.0 (0.9-2) 10/23/21 18:28 Lipase < 3 U/L (11-82) L 10/23/21 18:28 Procalcitonin 0.44 ng/ml (0-0.5) 10/23/21 18:29 SARS-CoV-2, RNA, NAAT NEGATIVE (NEGATIVE) 10/23/21 21:28 Impressions Chest X-Ray 10/23/21 17:43 XR chest 1V portable CLINICAL HISTORY: Atypical chest pain. COMPARISON STUDY: Chest radiograph and chest CT August 25, 2021. FINDINGS: Postoperative findings from double lung transplant are noted. Cardiomegaly is unchanged. A stent within the right mainstem bronchus is noted. No pneumothorax or pleural effusion is identified. Patchy bilateral airspace opacities are noted, including right midlung opacity. There is minimal right basilar opacity. IMPRESSION: 1. Slight progression of patchy bilateral airspace opacities. These are nonspecific although favor an infectious process. Radiographic follow-up is recommended. 2. Stable cardiomegaly. ACT 112: Negative or not required by law. Electronically signed by: Albin Rojo M.D. 10/23/2021 6:30 PM Diagnostic Findings EKG as per my interpretation: Rate 125, sinus tachycardia, normal axis, T wave flattening lateral and septal leads
[2021-10-23] MEDS ORDERED: INSULIN GLARGINE SOLOSTAR 100 UNITS/ML 3 ML PEN SC STA (22:34)
[2021-10-23] MEDS ORDERED: SODIUM CHLORIDE 0.9% 1000ML 1,000 ML IV ONE (22:34)
[2021-10-24] MEDS ORDERED: traMADol HCL 50 MG TABLET PO PRN (00:46)
[2021-10-24] MEDS ORDERED: TACROLIMUS 1 MG CAP PO SCH (00:46)
[2021-10-24] MEDS ORDERED: GLUCAGON FOR INJ 1 MG VIAL SQ PRN (00:46)
[2021-10-24] MEDS ORDERED: GLUCOSE 10 TABS/TUBE PO PRN (00:46)
[2021-10-24] MEDS ORDERED: PROMETHAZINE HCL 6.25 MG in SODIUM CHLORIDE 0.9% 50 ML IV PRN (00:46)
[2021-10-24] MEDS ORDERED: GLUCOSE 40% GEL 15 GM TUBE PO PRN (00:46)
[2021-10-24] MEDS ORDERED: DEXTROSE 50% 50 ML SYRINGE IV PRN (00:46)
[2021-10-24] MEDS ORDERED: XOPENEX/ATROVENT 1.25mg/0.5MG NEB COMBO NEB SCH (01:00)
[2021-10-24] MEDS: INSULIN ASPART PER UNIT SC SCH ×6 (01:11→21:04)
[2021-10-24] MEDS: IPRATROPIUM BROMIDE NEB SOLN 0.02% 2.5 ML VIAL INH SCH ×4 (01:27→19:52)
[2021-10-24] MEDS: LEVALBUTEROL 1.25MG/0.5ML NEB INH SCH ×4 (01:28→19:52)
[2021-10-24] MEDS: ACETAMINOPHEN 325 MG TAB PO PRN (04:16)
[2021-10-24] MEDS: PIPERACILLIN/TAZOBACTAM 3.375 GM in DEXTROSE 5% 100 ML IV SCH ×3 (05:46→20:58)
[2021-10-24] MEDS: HEPARIN SOD 5,000 UNIT/0.5 ML VIAL SQ SCH ×3 (05:47→21:02)
[2021-10-24] MEDS ORDERED: LEVALBUTEROL HCL 1.25 MG/3 ML NEB ONE (07:03)
[2021-10-24] MEDS: INSULIN GLARGINE SOLOSTAR 100 UNITS/ML 3 ML PEN SC SCH ×2 (07:48→21:05)
[2021-10-24] MEDS: TACROLIMUS 1 MG CAP PO SCH ×2 (07:51→20:11)
[2021-10-24] MEDS: TACROLIMUS 0.5 MG CAP PO SCH (07:51)
[2021-10-24] MEDS: ACYCLOVIR 400 MG TAB PO SCH ×2 (07:54→20:07)
[2021-10-24] MEDS: HYDROCORTISONE 10 MG TAB PO SCH ×3 (07:54→17:03)
[2021-10-24] MEDS: METOPROLOL TARTRATE 25 MG TAB PO SCH ×2 (07:55→20:10)
[2021-10-24 08:38] LABS: BUN Creatinine Ratio 32.9 (10-20); Calcium 9.4 mg/dl (8.5-10.1); Creatinine Clr Calc Pharmacy 21.6 ml/min; Est GFR (African American) 27.4 ml/min; Est GFR (Non-African American) 23.6 ml/min; Potassium 5.4 mmol/L (3.5-5.1)
[2021-10-24] MEDS ORDERED: DOMPERIDONE PO SCH (09:00)
[2021-10-24 09:06] LABS: Hematocrit (blood only) 21.4 % (37-47); Hemoglobin 6.6 g/dL (12.0-16.0); Mean Corpuscular Hemoglobin 28.4 pg (25-34); Mean Corpuscular Hgb Conc 30.8 g/dL (32-36); Mean Corpuscular Volume 92.2 fL (80-100); Mean Platelet Volume 9.8 fL (7.4-10.4); Platelet Count 173 K/uL (130-400); RDW Coefficient of Variation 16.6 % (11.5-14.5); RDW Standard Deviation 55.8 fL (36.4-46.3); Red Blood Count 2.32 M/uL (4.2-5.4); White Blood Count 7.87 K/uL (4.8-10.8)
[2021-10-24 09:18] LABS: Immature Granulocytes # (auto) 0.09 K/uL (0.00-0.02); Immature Granulocytes % (auto) 1.1 %; Lymphocytes # (auto) 0.41 K/uL (1.2-3.4); Lymphocytes % (auto) 5.2 %; Monocytes # (auto) 0.28 K/uL (0.11-0.59); Monocytes % (auto) 3.6 %; Neutrophils # (auto) 7.09 K/uL (1.4-6.5); Neutrophils % (auto) 90.1 %; Spherocytes 2+
[2021-10-24] MEDS ORDERED: SODIUM CHLORIDE 0.9% 250 ML IV PRN (09:58)
[2021-10-24] MEDS: EVEROLIMUS 0.5 MG PO SCH ×2 (11:44→20:09)
[2021-10-24] MEDS: PREVYMIS PO SCH (11:46)
[2021-10-24] MEDS: PANTOprazole 40 MG TAB PO SCH (11:49)
[2021-10-24] MEDS: CITALOPRAM 20 MG TAB PO SCH (11:49)
--- NOTE | 2021-10-24 15:00 | Electrocardiogram Report ---
Test Reason : Blood Pressure : / mmHG Vent. Rate : 125 BPM Atrial Rate : 125 BPM P-R Int : 140 ms QRS Dur : 078 ms QT Int : 324 ms P-R-T Axes : 030 059 072 degrees QTc Int : 467 ms Poor data quality, interpretation may be adversely affected Sinus tachycardia Otherwise normal ECG When compared with ECG of 01-SEP-2021 05:44, No significant change was found Confirmed by Hosea John ([id number]) on 10/24/2021 2:59:49 PM Referred By: REFERRED SELF Confirmed By:Hosea John
[2021-10-24] MEDS: AMITRIPTYLINE HCL 50 MG TAB PO SCH (20:08)
[2021-10-24] MEDS: SENNA 8.6 MG TAB PO SCH (20:11)
[2021-10-24] MEDS ORDERED: BENZONATATE 100 MG CAPSULE PO PRN (20:35)
--- NOTE | 2021-10-24 22:36 | Hospitalist Progress Note ---
Date of Service October 24, 2021 Assessment & Plan (1) COPD exacerbation: Plan: Acute on chronic respiratory failure with hypoxia Lung transplant status, bilateral, [facility] 2019 Present on admission with worsening SOB CXR showed Slight progression of patchy bilateral airspace opacities. Covid 19 negative Blood cx pending Continue IV zosyn Continue Hydrocortisone Continue Aggressive pulmonary toilet with levalbuterol/ipratropium, flutter valve, incentive spirometry, hypertonic saline Blood cx no growth Bactrim on hold in setting of ROYER, resume when able Will call the transplant team tomorrow (Call [phone] to reach transplant services or [phone] to reach answering service) Acute on chronic CKD stage III creatinine 2.3 on admission, Creatinine 2.1 today Avoid nephrotoxic agents Continue monitor BMP Elevated trop Denies any chest pain High sensitivity trop 27.8, then 29.3 EKG showed no acute ischemic changes Hyperkalemia Potassium 5.4 Continue monitor BMP Poor PO intake GT in place consult dietary to determine if G tube feedings would be beneficial until pt tolerating PO intake GT flushes ordered Chronic Anemia in setting of chronic disease Anemia of acute blood loss Hgb dropped 6.6 S/P 1 unit PRBC today No sign of active bleeding Will hold heparin Continue monitor CBC DVT ppx: on SQ Heparin, will hold Full code [facility] transplant team (Dr. Maik Foster, contact #[phone]) Admission and Anticipated Discharge Date Admission Date: October 23, 2021 Subjective Pt was seen and examined for follow up of SOB Lying in bed with no acute distress Pt said that she has been coughing but nothing come out Denies any chest pain, palpitation, dizziness and SOB Review of Systems Review of Systems: All systems reviewed & are unremarkable except as noted in Subjective Physical Exam Physical Exam: General- No acute distress Head- atraumatic Eyes- PERRL, EOMI, ENT- oropharynx clear Neck- supple, no JVD Lungs- + coarse breath sounds with wheezing and rhonchi Heart- +tachycardia, no murmur Abdomen- normal bowel sounds, soft, nontender Extremities- no calf tenderness Neuro- alert, oriented x 3; PERRL, EOMI; no facial palsy; no dysarthria Skin- warm & dry Results & Data Results & Data ([facility]) Vital Signs (Past 12 Hours) Vital Signs Temp Pulse Pulse Resp BP BP Pulse Ox 05/22/22 19:53 114 H 18 95 10/24/21 19:27 36.5 C 100 H 18 136/74 99 10/24/21 15:27 37.0 C 103 H 19 128/67 100 10/24/21 13:37 37.1 C 96 H 16 130/73 100 10/24/21 13:22 37 C 94 H 14 131/73 100 10/24/21 13:01 37 C 110 H 111/69 99 10/24/21 12:25 110 H 16 100 10/24/21 11:29 36.7 C 104 H 22 112/68 100
[2021-10-24] MEDS: NOVASOURCE RENAL 2.0 CAL 1000ML BAG GJT SCH (23:26)
[2021-10-25] MEDS: IPRATROPIUM BROMIDE NEB SOLN 0.02% 2.5 ML VIAL INH SCH ×5 (00:13→23:57)
[2021-10-25] MEDS: LEVALBUTEROL 1.25MG/0.5ML NEB INH SCH ×5 (00:13→23:57)
[2021-10-25] MEDS ORDERED: METOPROLOL TARTRATE 25 MG TAB PO STA (00:38)
[2021-10-25] MEDS: PIPERACILLIN/TAZOBACTAM 3.375 GM in DEXTROSE 5% 100 ML IV SCH ×3 (05:14→21:09)
[2021-10-25] MEDS: HEPARIN SOD 5,000 UNIT/0.5 ML VIAL SQ SCH (05:14)
[2021-10-25] MEDS ORDERED: LEVALBUTEROL HCL 1.25 MG/3 ML NEB ONE ×2 (06:58→13:13)
[2021-10-25 07:43] LABS: Estimated Average Glucose 126 mg/dl
[2021-10-25 08:12] LABS: Creatinine Clr Calc Pharmacy 21.5 ml/min; Est GFR (African American) 27.2 ml/min; Est GFR (Non-African American) 23.5 ml/min
[2021-10-25] MEDS: INSULIN ASPART PER UNIT SC SCH ×4 (08:37→20:41)
[2021-10-25] MEDS: INSULIN GLARGINE SOLOSTAR 100 UNITS/ML 3 ML PEN SC SCH ×2 (08:38→20:41)
[2021-10-25] MEDS: EVEROLIMUS 0.5 MG PO SCH (08:39)
[2021-10-25] MEDS: ACYCLOVIR 400 MG TAB PO SCH ×2 (08:40→19:31)
[2021-10-25] MEDS: HYDROCORTISONE 10 MG TAB PO SCH ×3 (08:40→17:22)
[2021-10-25] MEDS: METOPROLOL TARTRATE 50 MG TAB PO SCH ×2 (08:41→19:33)
[2021-10-25] MEDS: TACROLIMUS 0.5 MG CAP PO SCH (08:42)
[2021-10-25] MEDS: PREVYMIS PO SCH (08:42)
[2021-10-25] MEDS: TACROLIMUS 1 MG CAP PO SCH ×2 (08:45→19:34)
[2021-10-25 08:51] LABS: Hemoglobin 8.8 g/dL (12.0-16.0)
[2021-10-25] MEDS: CARBOHYDRATES FOR HYPOGLYCEMIA PO PRN ×2 (11:40→12:00)
[2021-10-25] MEDS: CITALOPRAM 20 MG TAB PO SCH (11:51)
[2021-10-25] MEDS: PANTOprazole 40 MG TAB PO SCH (11:51)
--- NOTE | 2021-10-25 18:33 | Hospitalist Progress Note ---
Date of Service October 25, 2021 Assessment & Plan (1) COPD exacerbation: Plan: Acute on chronic respiratory failure with hypoxia Lung transplant status, bilateral, [facility] 2019 Present on admission with worsening SOB CXR showed Slight progression of patchy bilateral airspace opacities. Covid 19 negative Blood cx no growth Continue IV zosyn Azithromycin on hold Continue Hydrocortisone Continue Aggressive pulmonary toilet with levalbuterol/ipratropium, flutter valve, incentive spirometry, hypertonic saline Blood cx no growth Bactrim on hold in setting of ROYER, resume when able Spoke to Dr. Moran from the transplant team that recommended to hold the everolimus. Ok to continue the Tacrolimus and Prevymis. He is exhibition organiser until the weekend and can be reach (cell# [phone]) will check the Tacrolimus level 2 hrs before taking the tacrolimus med to get a more accurate level Acute on chronic CKD stage III creatinine 2.3 on admission, Creatinine 2.1 today Avoid nephrotoxic agents Continue monitor BMP Elevated trop Denies any chest pain High sensitivity trop 27.8, then 29.3 EKG showed no acute ischemic changes Hyperkalemia Potassium 4 today Continue monitor BMP Poor PO intake GT in place consult dietary to determine if G tube feedings would be beneficial until pt tolerating PO intake GT flushes ordered Chronic Anemia in setting of chronic disease Anemia of acute blood loss Hgb dropped 6.6 S/P 1 unit PRBC on 10/25. Hgb 8.8 today No sign of active bleeding Continue to hold heparin for now Continue monitor CBC DVT ppx: on SQ Heparin, will hold Full code [facility] transplant team Transplant provider Dr. Moran cell # [phone] Admission and Anticipated Discharge Date Admission Date: October 23, 2021 Subjective Pt was seen and examined for follow up of SOB Lying in bed with no acute distress Pt said that she has been coughing but nothing come out She has not been using the flutter valve She is not complaint at home with her nebulizer treatment Denies any chest pain, palpitation, dizziness and SOB Review of Systems Review of Systems: All systems reviewed & are unremarkable except as noted in Subjective Physical Exam Physical Exam: General- No acute distress Head- atraumatic Eyes- PERRL, EOMI, ENT- oropharynx clear Neck- supple, no JVD Lungs- + coarse breath sounds with wheezing and rhonchi Heart- +tachycardia, no murmur Abdomen- normal bowel sounds, soft, nontender Extremities- no calf tenderness Neuro- alert, oriented x 3; PERRL, EOMI; no facial palsy; no dysarthria Skin- warm & dry Results & Data Results & Data ([facility]) Vital Signs (Past 12 Hours) Vital Signs Temp Pulse Pulse Resp BP Pulse Ox 10/25/21 15:48 36.8 C 88 19 121/71 96 10/25/21 14:20 83 10/25/21 13:18 84 20 98 10/25/21 12:26 36.9 C 110 H 19 111/71 95 10/25/21 07:37 122 H 18 134/76 95 10/25/21 07:14 116 H 22 96 10/25/21 06:45 114 H
[2021-10-25] MEDS: AMITRIPTYLINE HCL 50 MG TAB PO SCH (19:31)
[2021-10-25] MEDS: SENNA 8.6 MG TAB PO SCH (19:33)
[2021-10-25] MEDS: NOVASOURCE RENAL 2.0 CAL 1000ML BAG GJT SCH (21:00)
[2021-10-26] MEDS: PIPERACILLIN/TAZOBACTAM 3.375 GM in DEXTROSE 5% 100 ML IV SCH ×3 (05:45→21:12)
[2021-10-26] MEDS ORDERED: LEVALBUTEROL HCL 1.25 MG/3 ML NEB ONE (06:58)
[2021-10-26] MEDS: IPRATROPIUM BROMIDE NEB SOLN 0.02% 2.5 ML VIAL INH SCH ×3 (07:08→19:35)
[2021-10-26] MEDS: LEVALBUTEROL 1.25MG/0.5ML NEB INH SCH (07:09)
[2021-10-26 07:15] LABS: Hemoglobin 8.6 g/dL (12.0-16.0); Mean Corpuscular Hemoglobin 28.2 pg (25-34); Mean Corpuscular Hgb Conc 30.7 g/dL (32-36); Mean Corpuscular Volume 91.8 fL (80-100); Mean Platelet Volume 10.3 fL (7.4-10.4); Platelet Count 167 K/uL (130-400); RDW Coefficient of Variation 16.8 % (11.5-14.5); RDW Standard Deviation 55.9 fL (36.4-46.3); Red Blood Count 3.05 M/uL (4.2-5.4); White Blood Count 8.26 K/uL (4.8-10.8)
[2021-10-26 07:45] LABS: BUN Creatinine Ratio 27.7 (10-20); Calcium 9.8 mg/dl (8.5-10.1); Creatinine Clr Calc Pharmacy 20.8 ml/min; Est GFR (African American) 26.2 ml/min; Est GFR (Non-African American) 22.6 ml/min; Potassium 4.4 mmol/L (3.5-5.1)
[2021-10-26] MEDS: PREVYMIS PO SCH (08:02)
[2021-10-26] MEDS: ACYCLOVIR 400 MG TAB PO SCH ×2 (08:02→19:48)
[2021-10-26] MEDS: HYDROCORTISONE 10 MG TAB PO SCH ×3 (08:02→16:45)
[2021-10-26] MEDS: METOPROLOL TARTRATE 50 MG TAB PO SCH ×2 (08:02→19:49)
[2021-10-26] MEDS: INSULIN ASPART PER UNIT SC SCH ×4 (08:11→21:11)
[2021-10-26] MEDS: INSULIN GLARGINE SOLOSTAR 100 UNITS/ML 3 ML PEN SC SCH ×2 (08:11→21:11)
[2021-10-26] MEDS: TACROLIMUS 0.5 MG CAP PO SCH (09:03)
[2021-10-26] MEDS: TACROLIMUS 1 MG CAP PO SCH ×2 (09:04→19:49)
[2021-10-26] MEDS: LEVALBUTEROL HCL 1.25 MG/3 ML NEB INH SCH ×3 (10:45→19:36)
[2021-10-26] MEDS: PANTOprazole 40 MG TAB PO SCH (11:27)
[2021-10-26] MEDS: CITALOPRAM 20 MG TAB PO SCH (11:27)
[2021-10-26] MEDS: ACETAMINOPHEN 325 MG TAB PO PRN (16:17)
[2021-10-26] MEDS: NOVASOURCE RENAL 2.0 CAL 1000ML BAG GJT SCH (18:45)
[2021-10-26] MEDS: AMITRIPTYLINE HCL 50 MG TAB PO SCH (19:47)
[2021-10-26] MEDS: SENNA 8.6 MG TAB PO SCH (19:50)
--- NOTE | 2021-10-26 23:16 | Hospitalist Progress Note ---
Date of Service October 26, 2021 Assessment & Plan (1) COPD exacerbation: Plan: Acute on chronic respiratory failure with hypoxia Lung transplant status, bilateral, [facility] 2019 Present on admission with worsening SOB CXR showed Slight progression of patchy bilateral airspace opacities. Covid 19 negative Blood cx no growth Continue IV zosyn Azithromycin on hold Continue Hydrocortisone Continue Aggressive pulmonary toilet with levalbuterol/ipratropium, flutter valve, incentive spirometry, hypertonic saline Blood cx no growth Bactrim on hold in setting of ROYER, resume when able Tacrolimus level pending Spoke to Dr. Moran from the transplant team that recommended to hold the everolimus. Ok to continue the Tacrolimus and Prevymis. He is gynaecological oncologist until the weekend and can be reach (cell# [phone]) Acute on chronic CKD stage III creatinine 2.3 on admission, Creatinine 2.2 today Avoid nephrotoxic agents Continue monitor BMP Elevated trop Denies any chest pain High sensitivity trop 27.8, then 29.3 EKG showed no acute ischemic changes Hyperkalemia Potassium 4 today Continue monitor BMP Poor PO intake GT in place consult dietary to determine if G tube feedings would be beneficial until pt tolerating PO intake GT flushes ordered Chronic Anemia in setting of chronic disease Anemia of acute blood loss Hgb dropped 6.6 S/P 1 unit PRBC on 10/25. Hgb 8.6 today No sign of active bleeding Continue to hold heparin for now Continue monitor CBC DVT ppx: on SQ Heparin on hold. if H/H stable consider to restart it BID On SCD Full code [facility] transplant team Transplant provider Dr. Moran cell # [phone] Admission and Anticipated Discharge Date Admission Date: October 23, 2021 Subjective Pt was seen and examined for follow up of SOB Lying in bed with no acute distress Pt said that she slightly feels better Review of Systems Review of Systems: All systems reviewed & are unremarkable except as noted in Subjective Physical Exam Physical Exam: General- No acute distress Head- atraumatic Eyes- PERRL, EOMI, ENT- oropharynx clear Neck- supple, no JVD Lungs- + coarse breath sounds with wheezing and rhonchi Heart- +tachycardia, no murmur Abdomen- normal bowel sounds, soft, nontender Extremities- no calf tenderness Neuro- alert, oriented x 3; PERRL, EOMI; no facial palsy; no dysarthria Skin- warm & dry Results & Data Results & Data ([facility]) Vital Signs (Past 12 Hours) Vital Signs Temp Pulse Pulse Resp BP Pulse Ox 10/26/21 20:17 37.4 C 113 H 23 103/69 96 10/26/21 19:36 87 18 97 10/26/21 15:42 37.0 C 113 H 20 146/84 H 96 10/26/21 14:20 112 H 10/26/21 12:48 107 H 22 98 10/26/21 11:36 37.3 C 114 H 18 139/85 96
[2021-10-27] MEDS: IPRATROPIUM BROMIDE NEB SOLN 0.02% 2.5 ML VIAL INH SCH ×4 (00:38→20:05)
[2021-10-27] MEDS: LEVALBUTEROL HCL 1.25 MG/3 ML NEB INH SCH ×4 (00:38→20:05)
[2021-10-27] MEDS: PIPERACILLIN/TAZOBACTAM 3.375 GM in DEXTROSE 5% 100 ML IV SCH ×3 (05:30→21:44)
[2021-10-27 07:46] LABS: Hematocrit (blood only) 24.8 % (37-47); Hemoglobin 7.6 g/dL (12.0-16.0); Mean Corpuscular Hemoglobin 28.6 pg (25-34); Mean Corpuscular Hgb Conc 30.6 g/dL (32-36); Mean Corpuscular Volume 93.2 fL (80-100); Mean Platelet Volume 9.6 fL (7.4-10.4); Platelet Count 129 K/uL (130-400); RDW Coefficient of Variation 16.4 % (11.5-14.5); Red Blood Count 2.66 M/uL (4.2-5.4); White Blood Count 6.52 K/uL (4.8-10.8)
[2021-10-27 08:16] LABS: BUN Creatinine Ratio 29.9 (10-20); Calcium 9.8 mg/dl (8.5-10.1); Creatinine Clr Calc Pharmacy 22.1 ml/min; Est GFR (African American) 27.7 ml/min; Est GFR (Non-African American) 23.9 ml/min; Potassium 4.3 mmol/L (3.5-5.1)
[2021-10-27] MEDS: HYDROCORTISONE 10 MG TAB PO SCH ×3 (08:47→17:20)
[2021-10-27] MEDS: METOPROLOL TARTRATE 50 MG TAB PO SCH ×2 (08:47→21:17)
[2021-10-27] MEDS: TACROLIMUS 0.5 MG CAP PO SCH (08:48)
[2021-10-27] MEDS: ACYCLOVIR 400 MG TAB PO SCH ×2 (08:48→21:14)
[2021-10-27] MEDS: TACROLIMUS 1 MG CAP PO SCH ×2 (09:03→21:15)
[2021-10-27] MEDS: PREVYMIS PO SCH (09:04)
[2021-10-27] MEDS: INSULIN ASPART PER UNIT SC SCH ×4 (09:30→21:40)
[2021-10-27] MEDS: INSULIN GLARGINE SOLOSTAR 100 UNITS/ML 3 ML PEN SC SCH ×2 (09:31→21:42)
[2021-10-27] MEDS: CITALOPRAM 20 MG TAB PO SCH (11:15)
[2021-10-27] MEDS: PANTOprazole 40 MG TAB PO SCH (11:16)
--- NOTE | 2021-10-27 13:18 | Hospitalist Progress Note ---
Date of Service October 27, 2021 Assessment & Plan (1) COPD exacerbation: Plan: Acute on chronic respiratory failure with hypoxia Lung transplant status, bilateral, [facility] 2019 Present on admission with worsening SOB CXR showed Slight progression of patchy bilateral airspace opacities. Covid 19 negative Blood cx no growth Continue IV zosyn Azithromycin on hold Continue Hydrocortisone Continue Aggressive pulmonary toilet with levalbuterol/ipratropium, flutter valve, incentive spirometry, hypertonic saline Bactrim on hold in setting of ROYER, resume when able Tacrolimus level pending Spoke to Dr. Moran from the transplant team that recommended to hold the everolimus. Ok to continue the Tacrolimus and Prevymis. 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 No sign of active bleeding Continue to hold heparin for now Continue monitor H&H DVT ppx: SCDs, Heparin on hold. if H/H stable consider to restart it BID Full code [facility] transplant team Transplant provider Dr. Moran cell # [phone] Admission and Anticipated Discharge Date Admission Date: October 23, 2021 Subjective Pt was seen in follow up of shortness of breath, likely 2/2 COPD exacerbatio n/pneumonia in the setting of bilateral lung transplant Pt is sitting up in chair, in no acute distress Says that she feels little better Denies fevers chills, chest pain, abdominal pain, nausea or vomiting Review of Systems Review of Systems: All systems reviewed & are unremarkable except as noted in Subjective Physical Exam Physical Exam: General- No acute distress Head- atraumatic Eyes- PERRL, EOMI, ENT- oropharynx clear Neck- supple, no JVD Lungs- + diffuse coarse breath sounds Heart- +tachycardia, no murmur Abdomen- normal bowel sounds, soft, nontender Extremities- no calf tenderness Neuro- alert, oriented x 3; PERRL, EOMI; no facial palsy; no dysarthria, moves extremities Skin- warm & dry Results & Data Results & Data ([facility]) Vital Signs (Past 12 Hours) Vital Signs Temp Pulse Pulse Pulse Resp BP Pulse Ox 10/27/21 11:33 37.4 C 103 H 20 149/81 H 99 10/27/21 08:35 36.6 C 107 H 24 115/75 99 10/27/21 08:00 104 H 10/27/21 07:00 107 H 22 96 10/27/21 03:57 36.7 C 105 H 19 119/72 97 10/27/21 01:24 106 H Laboratory Results 10/27/21 10/27/21 10/27/21 Range/Units 11:12 07:27 07:25 WBC (4.8-10.8) K/uL RBC (4.2-5.4) M/uL Hgb (12.0-16.0) g/dL Hct (37-47) % MCV (80-100) fL MCH (25-34) pg MCHC (32-36) g/dL RDW Std Deviation (36.4-46.3) fL RDW Coeff of Janina (11.5-14.5) % Plt Count (130-400) K/uL MPV (7.4-10.4) fL Sodium 136 (136-145) mmol/L Potassium 4.3 (3.5-5.1) mmol/L Chloride 99 (98-107) mmol/L Carbon Dioxide 32 (21-32) mmol/L Anion Gap 5 (3-11) BUN 64 H (6-23) mg/dl Creatinine 2.14 H (0.6-1.2) mg/dl Est Cr Clr Drug Dosing 22.1 ml/min Est GFR ( Amer) 27.7 ml/min Est GFR (Non-Af Amer) 23.9 ml/min BUN/Creatinine Ratio 29.9 H (10-20) Glucose 238 H (70-99(Fasting)) mg/dl POC Glucose 85 248 H (70-99) mg/dl Calcium 9.8 (8.5-10.1) mg/dl 10/27/21 10/26/21 10/26/21 Range/Units 07:25 20:22 16:13 WBC 6.52 (4.8-10.8) K/uL RBC 2.66 L (4.2-5.4) M/uL Hgb 7.6 L (12.0-16.0) g/dL Hct 24.8 L (37-47) % MCV 93.2 (80-100) fL MCH 28.6 (25-34) pg MCHC 30.6 L (32-36) g/dL RDW Std Deviation 56.0 H (36.4-46.3) fL RDW Coeff of Janina 16.4 H (11.5-14.5) % Plt Count 129 L (130-400) K/uL MPV 9.6 (7.4-10.4) fL Sodium (136-145) mmol/L Potassium (3.5-5.1) mmol/L Chloride (98-107) mmol/L Carbon Dioxide (21-32) mmol/L Anion Gap (3-11) BUN (6-23) mg/dl Creatinine (0.6-1.2) mg/dl Est Cr Clr Drug Dosing ml/min Est GFR ( Amer) ml/min Est GFR (Non-Af Amer) ml/min BUN/Creatinine Ratio (10-20) Glucose (70-99(Fasting)) mg/dl POC Glucose 262 H 155 H (70-99) mg/dl Calcium (8.5-10.1) mg/dl Medications Administered Current Inpatient Medications Acetaminophen (Acetaminophen 325 Mg Tab) 650 mg PO Q4H PRN PRN Reason: Pain or Fever Stop: 11/23/21 00:45 Last Admin: 10/26/21 16:17 Dose: 650 mg Documented by: Acyclovir (Acyclovir 400 Mg Tab) 400 mg PO [facility] Stop: 11/23/21 08:59 Last Admin: 10/27/21 08:48 Dose: 400 mg Documented by: Amitriptyline HCl (Amitriptyline Hcl 50 Mg Tab) 50 mg PO HS [facility] Stop: 11/23/21 20:59 Last Admin: 10/26/21 19:47 Dose: 50 mg Documented by: Benzonatate (Benzonatate 100 Mg Capsule) 100 mg PO TID PRN PRN Reason: Cough Stop: 11/23/21 20:34 Last Admin: 10/24/21 20:54 Dose: 100 mg Documented by: Citalopram Hydrobromide (Citalopram 20 Mg Tab) 10 mg PO DAILY@1200 [facility] Stop: 11/23/21 11:59 Last Admin: 10/27/21 11:15 Dose: 10 mg Documented by: Dextrose (Dextrose 50% 50 Ml Syringe) 25 - 50 ml IV UD PRN; Protocol PRN Reason: Hypoglycemia Protocol Stop: 11/23/21 00:45 Enteral Nutritional Formula (Novasource Renal 2.0 Fredrick 1000ml Bag) 1,000 ml GJT UD [facility]; Protocol Stop: 11/23/21 20:59 Last Admin: 10/26/21 18:45 Dose: 1,000 ml Documented by: Everolimus (Pt's Own Med: Everolimus 0.5mg) 4 ea PO BID [facility] Stop: 11/23/21 10:12 Last Admin: 10/25/21 08:39 Dose: 4 ea Documented by: Glucagon (Glucagon For Inj 1 Mg Vial) 1 mg SQ UD PRN; Protocol PRN Reason: Hypoglycemia Protocol Stop: 11/23/21 00:45 Glucose (Glucose 10 Tabs/Tube) 4 - 8 tabs PO UD PRN; Protocol PRN Reason: Hypoglycemia Protocol Stop: 11/23/21 00:45 Glucose (Glucose 40% Gel 15 Gm Tube) 15 - 30 gm PO UD PRN; Protocol PRN Reason: Hypoglycemia Protocol Stop: 11/23/21 00:45 Heparin Sodium (Porcine) (Heparin Sod 5,000 Unit/0.5 Ml Vial) 5,000 units SQ Q8 [facility] Stop: 11/23/21 05:59 Last Admin: 10/25/21 05:14 Dose: 5,000 units Documented by: Hydrocortisone (Hydrocortisone 10 Mg Tab) 20 mg PO QAM [facility] Stop: 11/23/21 08:59 Last Admin: 10/27/21 08:47 Dose: 20 mg Documented by: Hydrocortisone (Hydrocortisone 10 Mg Tab) 10 mg PO BID@1200,1630 [facility] Stop: 11/23/21 11:59 Last Admin: 10/27/21 11:15 Dose: 10 mg Documented by: Piperacillin Sod/Tazobactam (Sod 3.375 gm/ Dextrose) 115 mls @ 28.75 mls/hr IV Q8H [facility]; Protocol Stop: 10/31/21 05:59 Last Infusion: 10/27/21 10:08 Dose: Infused Documented by: Promethazine HCl 6.25 mg/ (Sodium Chloride) 50.25 mls @ 201 mls/hr IV Q6H PRN PRN Reason: Nausea And Vomiting Stop: 11/23/21 00:45 Last Infusion: 10/26/21 14:28 Dose: Infused Documented by: Insulin Aspart (Insulin Aspart Per Unit) 0 units SC ACHS [facility] Stop: 11/23/21 00:45 Last Admin: 10/27/21 09:30 Dose: 6 units Documented by: Insulin Glargine (Insulin Glargine Solostar 100 Units/Ml 3 Ml Pen) 5 units SC BID [facility] Stop: 11/23/21 08:59 Last Admin: 10/27/21 09:31 Dose: 5 units Documented by: Ipratropium [place] (Ipratropium [place] Neb Soln 0.02% 2.5 Ml Vial) 0.5 mg INH Q6R [facility] Stop: 11/23/21 00:59 Last Admin: 10/27/21 07:00 Dose: 0.5 mg Documented by: Levalbuterol HCl (Levalbuterol Hcl 1.25 Mg/3 Ml Neb) 1.25 mg INH Q6R [facility] Stop: 11/25/21 06:59 Last Admin: 10/27/21 07:00 Dose: 1.25 mg Documented by: Metoprolol Tartrate (Metoprolol Tartrate 50 Mg Tab) 50 mg PO BID [facility] Stop: 11/24/21 08:59 Last Admin: 10/27/21 08:47 Dose: 50 mg Documented by: Miscellaneous (Carbohydrates For Hypoglycemia ) 15 - 30 gm PO UD PRN PRN Reason: Hypoglycemia Protocol Stop: 11/23/21 00:45 Last Admin: 10/25/21 12:00 Dose: 15 gm Documented by: Miscellaneous Information (Piperacill/Tazobac Consult Active) 1 ea N/A UD PRN PRN Reason: Consult Stop: 11/22/21 22:17 Pt's Own Med: (Prevymis 480mg) 1 ea PO QAM [facility] Stop: 11/23/21 08:59 Last Admin: 10/27/21 09:04 Dose: 480 mg Documented by: Pantoprazole Sodium (Pantoprazole 40 Mg Tab) 40 mg PO DAILY@1200 [facility] Stop: 11/23/21 11:59 Last Admin: 10/27/21 11:16 Dose: 40 mg Documented by: Sennosides (Senna 8.6 Mg Tab) 17.2 mg PO [facility] Stop: 11/23/21 20:59 Last Admin: 10/26/21 19:50 Dose: Not Given Documented by: Tacrolimus (Tacrolimus 1 Mg Cap) 5 mg PO [facility] Stop: 11/23/21 20:59 Last Admin: 10/26/21 19:49 Dose: 5 mg Documented by: Tacrolimus (Tacrolimus 1 Mg Cap) [address] [facility] Stop: 11/23/21 08:59 Last Admin: 10/27/21 09:03 Dose: 4 mg Documented by: Tacrolimus ([facility] 0.5 Mg Cap) [facility] Stop: 11/23/21 08:59 Last Admin: 10/27/21 08:48 Dose: 0.5 mg Documented by: Tramadol HCl (Tramadol Hcl 50 Mg Tablet) 25 - 50 mg PO Q4H PRN PRN Reason: Pain Stop: 11/23/21 00:45
[2021-10-27] MEDS: NOVASOURCE RENAL 2.0 CAL 1000ML BAG GJT SCH (18:02)
[2021-10-27] MEDS: AMITRIPTYLINE HCL 50 MG TAB PO SCH (21:16)
[2021-10-27] MEDS: SENNA 8.6 MG TAB PO SCH (21:18)
[2021-10-28] MEDS: LEVALBUTEROL HCL 1.25 MG/3 ML NEB INH SCH ×4 (00:20→19:31)
[2021-10-28] MEDS: IPRATROPIUM BROMIDE NEB SOLN 0.02% 2.5 ML VIAL INH SCH ×4 (00:20→19:31)
[2021-10-28] MEDS: PIPERACILLIN/TAZOBACTAM 3.375 GM in DEXTROSE 5% 100 ML IV SCH ×3 (05:49→21:58)
[2021-10-28 06:22] LABS: Hematocrit (blood only) 27.3 % (37-47); Hemoglobin 8.3 g/dL (12.0-16.0)
[2021-10-28 06:33] LABS: BUN Creatinine Ratio 30.2 (10-20); Calcium 9.9 mg/dl (8.5-10.1); Creatinine Clr Calc Pharmacy 24.6 ml/min; Est GFR (African American) 29.7 ml/min; Est GFR (Non-African American) 25.6 ml/min; Magnesium 1.9 mg/dl (1.7-2.4); Phosphorus 3.3 mg/dl (2.5-4.9); Potassium 4.2 mmol/L (3.5-5.1)
[2021-10-28] MEDS: METOPROLOL TARTRATE 50 MG TAB PO SCH ×2 (08:40→20:10)
[2021-10-28] MEDS: HYDROCORTISONE 10 MG TAB PO SCH ×3 (08:41→17:33)
[2021-10-28] MEDS: ACYCLOVIR 400 MG TAB PO SCH ×2 (08:42→20:10)
[2021-10-28] MEDS: PREVYMIS PO SCH (08:43)
[2021-10-28] MEDS: TACROLIMUS 0.5 MG CAP PO SCH (08:47)
[2021-10-28] MEDS: TACROLIMUS 1 MG CAP PO SCH ×2 (08:49→20:11)
[2021-10-28] MEDS: INSULIN ASPART PER UNIT SC SCH ×4 (09:12→21:58)
[2021-10-28] MEDS: INSULIN GLARGINE SOLOSTAR 100 UNITS/ML 3 ML PEN SC SCH ×2 (09:13→22:38)
[2021-10-28] MEDS: PANTOprazole 40 MG TAB PO SCH (12:42)
[2021-10-28] MEDS: CITALOPRAM 20 MG TAB PO SCH (12:42)
--- NOTE | 2021-10-28 19:40 | Hospitalist Progress Note ---
Date of Service October 28, 2021 Assessment & Plan (1) COPD exacerbation: Plan: Acute on chronic respiratory failure with hypoxia Lung transplant status, bilateral, [facility] 2019 Present on admission with worsening SOB CXR showed Slight progression of patchy bilateral airspace opacities. Covid 19 negative Blood cx no growth Sputum cultx - ordered but uncollected Continue IV zosyn Azithromycin on hold Continue Hydrocortisone Continue Aggressive pulmonary toilet with levalbuterol/ipratropium, flutter valve, incentive spirometry, hypertonic saline Bactrim on hold in setting of ROYER, resume when able Tacrolimus level 11.8 (10/26 at 7am) Spoke to Dr. Moran from the transplant team that recommended to hold the everolimus. Ok to continue the Tacrolimus and Prevymis. 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 No sign of active bleeding Continue to hold heparin for now Continue monitor H&H DVT ppx: SCDs, Heparin on hold. if H/H stable consider to restart it BID Full code [facility] transplant team Transplant provider Dr. Moran cell # [phone] Admission and Anticipated Discharge Date Admission Date: October 23, 2021 Subjective Pt was seen in follow up of shortness of breath, likely 2/2 COPD exacerbation/pneumonia in the setting of bilateral lung transplant Pt is sitting up in bed, in no acute distress Says that she feels better Denies fevers chills, chest pain, abdominal pain, nausea or vomiting Review of Systems Review of Systems: All systems reviewed & are unremarkable except as noted in Subjective Physical Exam Physical Exam: General- No acute distress Head- atraumatic Eyes- PERRL, EOMI, ENT- oropharynx clear Neck- supple, no JVD Lungs- + diffuse coarse breath sounds Heart- +tachycardia, no murmur Abdomen- normal bowel sounds, soft, nontender Extremities- no calf tenderness Neuro- alert, oriented x 3; PERRL, EOMI; no facial palsy; no dysarthria, moves extremities Skin- warm & dry Results & Data Results & Data ([facility]) Vital Signs (Past 12 Hours) Vital Signs Temp Pulse Pulse Pulse Resp BP Pulse Ox 10/28/21 19:31 111 H 22 98 10/28/21 19:20 37 C 110 H 18 150/90 H 95 10/28/21 15:28 110 H 10/28/21 14:46 36.8 C 105 H 20 137/83 90 10/28/21 13:33 108 H 20 95 10/28/21 12:07 36.8 C 111 H 20 128/75 90 Laboratory Results 10/28/21 10/28/21 10/28/21 Range/Units 16:28 11:42 08:59 Hgb (12.0-16.0) g/dL Hct (37-47) % Sodium (136-145) mmol/L Potassium (3.5-5.1) mmol/L Chloride (98-107) mmol/L Carbon Dioxide (21-32) mmol/L Anion Gap (3-11) BUN (6-23) mg/dl Creatinine (0.6-1.2) mg/dl Est Cr Clr Drug Dosing ml/min Est GFR ( Amer) ml/min Est GFR (Non-Af Amer) ml/min BUN/Creatinine Ratio (10-20) Glucose (70-99(Fasting)) mg/dl POC Glucose 165 H 117 H 278 H (70-99) mg/dl Calcium (8.5-10.1) mg/dl Phosphorus (2.5-4.9) mg/dl Magnesium (1.7-2.4) mg/dl Tacrolimus mcg/L 10/28/21 10/28/21 10/27/21 Range/Units 05:53 05:53 21:05 Hgb 8.3 L (12.0-16.0) g/dL Hct 27.3 L (37-47) % Sodium 136 (136-145) mmol/L Potassium 4.2 (3.5-5.1) mmol/L Chloride 99 (98-107) mmol/L Carbon Dioxide 31 (21-32) mmol/L Anion Gap 6 (3-11) BUN 61 H (6-23) mg/dl Creatinine 2.02 H (0.6-1.2) mg/dl Est Cr Clr Drug Dosing 24.6 ml/min Est GFR ( Amer) 29.7 ml/min Est GFR (Non-Af Amer) 25.6 ml/min BUN/Creatinine Ratio 30.2 H (10-20) Glucose 235 H (70-99(Fasting)) mg/dl POC Glucose 288 H (70-99) mg/dl Calcium 9.9 (8.5-10.1) mg/dl Phosphorus 3.3 (2.5-4.9) mg/dl Magnesium 1.9 (1.7-2.4) mg/dl Tacrolimus mcg/L 10/26/21 Range/Units 06:51 Hgb (12.0-16.0) g/dL Hct (37-47) % Sodium (136-145) mmol/L Potassium (3.5-5.1) mmol/L Chloride (98-107) mmol/L Carbon Dioxide (21-32) mmol/L Anion Gap (3-11) BUN (6-23) mg/dl Creatinine (0.6-1.2) mg/dl Est Cr Clr Drug Dosing ml/min Est GFR ( Amer) ml/min Est GFR (Non-Af Amer) ml/min BUN/Creatinine Ratio (10-20) Glucose (70-99(Fasting)) mg/dl POC Glucose (70-99) mg/dl Calcium (8.5-10.1) mg/dl Phosphorus (2.5-4.9) mg/dl Magnesium (1.7-2.4) mg/dl Tacrolimus 11.8 mcg/L Medications Administered Current Inpatient Medications Acetaminophen (Acetaminophen 325 Mg Tab) 650 mg PO Q4H PRN PRN Reason: Pain or Fever Stop: 11/23/21 00:45 Last Admin: 10/26/21 16:17 Dose: 650 mg Documented by: Acyclovir (Acyclovir 400 Mg Tab) 400 mg PO [facility] Stop: 11/23/21 08:59 Last Admin: 10/28/21 08:42 Dose: 400 mg Documented by: Amitriptyline HCl (Amitriptyline Hcl 50 Mg Tab) 50 mg PO [facility] Stop: 11/23/21 20:59 Last Admin: 10/27/21 21:16 Dose: 50 mg Documented by: Benzonatate (Benzonatate 100 Mg Capsule) 100 mg PO TID PRN PRN Reason: Cough Stop: 11/23/21 20:34 Last Admin: 10/24/21 20:54 Dose: 100 mg Documented by: Citalopram Hydrobromide (Citalopram 20 Mg Tab) 10 mg PO DAILY@1200 [facility] Stop: 11/23/21 11:59 Last Admin: 10/28/21 12:42 Dose: 10 mg Documented by: Dextrose (Dextrose 50% 50 Ml Syringe) 25 - 50 ml IV UD PRN; Protocol PRN Reason: Hypoglycemia Protocol Stop: 11/23/21 00:45 Enteral Nutritional Formula (Novasource Renal 2.0 [place]rick 1000ml Bag) 1,000 ml GJT UD [facility]; Protocol Stop: 11/23/21 20:59 Last Admin: 10/27/21 18:02 Dose: 1,000 ml Documented by: Everolimus (Pt's Own Med: Everolimus 0.5mg) 4 ea PO BID [facility] Stop: 11/23/21 10:12 Last Admin: 10/25/21 08:39 Dose: 4 ea Documented by: Glucagon (Glucagon For Inj 1 Mg Vial) 1 mg SQ UD PRN; Protocol PRN Reason: Hypoglycemia Protocol Stop: 11/23/21 00:45 Glucose (Glucose 10 Tabs/Tube) 4 - 8 tabs PO UD PRN; Protocol PRN Reason: Hypoglycemia Protocol Stop: 11/23/21 00:45 Glucose (Glucose 40% Gel 15 Gm Tube) 15 - 30 gm PO UD PRN; Protocol PRN Reason: Hypoglycemia Protocol Stop: 11/23/21 00:45 Heparin Sodium (Porcine) (Heparin Sod 5,000 Unit/0.5 Ml Vial) 5,000 units SQ Q8 [facility] Stop: 11/23/21 05:59 Last Admin: 10/25/21 05:14 Dose: 5,000 units Documented by: Hydrocortisone (Hydrocortisone 10 Mg Tab) 20 mg PO QAM [facility] Stop: 11/23/21 08:59 Last Admin: 10/28/21 08:41 Dose: 20 mg Documented by: Hydrocortisone (Hydrocortisone 10 Mg Tab) 10 mg PO BID@1200,1630 [facility] Stop: 11/23/21 11:59 Last Admin: 10/28/21 17:33 Dose: 10 mg Documented by: Piperacillin Sod/Tazobactam (Sod 3.375 gm/ Dextrose) 115 mls @ 28.75 mls/hr IV Q8H [facility]; Protocol Stop: 10/31/21 05:59 Last Infusion: 10/28/21 19:31 Dose: Infused Documented by: Promethazine HCl 6.25 mg/ (Sodium Chloride) 50.25 mls @ 201 mls/hr IV Q6H PRN PRN Reason: Nausea And Vomiting Stop: 11/23/21 00:45 Last Infusion: 10/26/21 14:28 Dose: Infused Documented by: Insulin Aspart (Insulin Aspart Per Unit) 0 units SC ACHS [facility] Stop: 11/23/21 00:45 Last Admin: 10/28/21 17:38 Dose: 1 units Documented by: Insulin Glargine (Insulin Glargine Solostar 100 Units/Ml 3 Ml Pen) 5 units SC BID [facility] Stop: 11/23/21 08:59 Last Admin: 10/28/21 09:13 Dose: 5 units Documented by: Ipratropium [place] (Ipratropium [place] Neb Soln 0.02% 2.5 Ml Vial) 0.5 mg INH Q6R [facility] Stop: 11/23/21 00:59 Last Admin: 10/28/21 19:31 Dose: 0.5 mg Documented by: Levalbuterol HCl (Levalbuterol Hcl 1.25 Mg/3 Ml Neb) 1.25 mg INH Q6R [facility] Stop: 11/25/21 06:59 Last Admin: 10/28/21 19:31 Dose: 1.25 mg Documented by: Metoprolol Tartrate (Metoprolol Tartrate 50 Mg Tab) 50 mg PO BID [facility] Stop: 11/24/21 08:59 Last Admin: 10/28/21 08:40 Dose: 50 mg Documented by: Miscellaneous (Carbohydrates For Hypoglycemia ) 15 - 30 gm PO UD PRN PRN Reason: Hypoglycemia Protocol Stop: 11/23/21 00:45 Last Admin: 10/25/21 12:00 Dose: 15 gm Documented by: Miscellaneous Information (Piperacill/Tazobac Consult Active) 1 ea N/A UD PRN PRN Reason: Consult Stop: 11/22/21 22:17 Pt's Own Med: (Prevymis 480mg) 1 ea PO [facility] Stop: 11/23/21 08:59 Last Admin: 10/28/21 08:43 Dose: 480 mg Documented by: Pantoprazole Sodium (Pantoprazole 40 Mg Tab) 40 mg PO DAILY@1200 [facility] Stop: 11/23/21 11:59 Last Admin: 10/28/21 12:42 Dose: 40 mg Documented by: Sennosides (Senna 8.6 Mg Tab) 17.2 mg PO [facility] Stop: 11/23/21 20:59 Last Admin: 10/27/21 21:18 Dose: Not Given Documented by: Tacrolimus (Tacrolimus 1 Mg Cap) 5 mg PO [facility] Stop: 11/23/21 20:59 Last Admin: 10/27/21 21:15 Dose: 5 mg Documented by: Tacrolimus (Tacrolimus 1 Mg Cap) 4 mg PO [facility] Stop: 11/23/21 08:59 Last Admin: 10/28/21 08:49 Dose: 4 mg Documented by: Tacrolimus (Tacrolimus 0.5 Mg Cap) 0.5 mg PO [facility] Stop: 11/23/21 08:59 Last Admin: 10/28/21 08:47 Dose: 0.5 mg Documented by: Tramadol HCl (Tramadol Hcl 50 Mg Tablet) 25 - 50 mg PO Q4H PRN PRN Reason: Pain Stop: 11/23/21 00:45
[2021-10-28] MEDS: AMITRIPTYLINE HCL 50 MG TAB PO SCH (20:09)
[2021-10-28] MEDS: SENNA 8.6 MG TAB PO SCH (20:12)
[2021-10-28] MEDS: NOVASOURCE RENAL 2.0 CAL 1000ML BAG GJT SCH (21:46)
[2021-10-29] MEDS: LEVALBUTEROL HCL 1.25 MG/3 ML NEB INH SCH ×4 (00:24→19:51)
[2021-10-29] MEDS: IPRATROPIUM BROMIDE NEB SOLN 0.02% 2.5 ML VIAL INH SCH ×4 (00:24→19:51)
[2021-10-29] MEDS ORDERED: ONDANSETRON INJ 2 MG/ML 2 ML VIAL IV STA (05:02)
[2021-10-29] MEDS: PIPERACILLIN/TAZOBACTAM 3.375 GM in DEXTROSE 5% 100 ML IV SCH ×3 (05:59→23:02)
[2021-10-29] MEDS: INSULIN ASPART PER UNIT SC SCH ×4 (08:11→22:46)
[2021-10-29] MEDS: INSULIN GLARGINE SOLOSTAR 100 UNITS/ML 3 ML PEN SC SCH ×2 (08:12→22:48)
[2021-10-29] MEDS: ACYCLOVIR 400 MG TAB PO SCH ×2 (08:13→23:00)
[2021-10-29] MEDS: METOPROLOL TARTRATE 50 MG TAB PO SCH ×2 (08:15→22:49)
[2021-10-29] MEDS: HYDROCORTISONE 10 MG TAB PO SCH ×3 (08:15→17:42)
[2021-10-29] MEDS: PREVYMIS PO SCH (08:15)
[2021-10-29] MEDS: ADVANCED PROBIOTIC 1250 MG CAPSULE PO SCH (08:15)
[2021-10-29] MEDS: TACROLIMUS 0.5 MG CAP PO SCH (08:17)
[2021-10-29] MEDS: TACROLIMUS 1 MG CAP PO SCH ×2 (08:17→22:51)
[2021-10-29 08:30] LABS: BUN Creatinine Ratio 31.5 (10-20); Calcium 10.4 mg/dl (8.5-10.1); Est GFR (African American) 33.2 ml/min; Est GFR (Non-African American) 28.7 ml/min; Magnesium 1.9 mg/dl (1.7-2.4); Phosphorus 3.2 mg/dl (2.5-4.9)
--- NOTE | 2021-10-29 09:16 | Hospitalist Progress Note ---
Date of Service October 29, 2021 Assessment & Plan (1) COPD exacerbation: Plan: Acute on chronic respiratory failure with hypoxia Lung transplant status, bilateral, [facility] 2019 Present on admission with worsening SOB CXR showed Slight progression of patchy bilateral airspace opacities. Covid 19 negative Blood cx no growth Sputum cultx - ordered but uncollected (patient unable to cough up any sputum) Continue IV zosyn Azithromycin on hold Continue Hydrocortisone Continue Aggressive pulmonary toilet with levalbuterol/ipratropium, flutter valve, incentive spirometry, hypertonic saline Bactrim on hold in setting of ROYER, resume when able Tacrolimus level 11.8 (10/26 at 7am) My colleague, Dr. Dean, spoke to Dr. Moran from the transplant team that recommended to hold the everolimus. Ok to continue the Tacrolimus and Prevymis. He is environmental solutions engineer until the weekend and can be reached (cell# [phone]). I contacted Dr. Moran today, October 29, and updated him on tacrolimus level, and current creatinine, and patient's status. Recommends to continue as is for now, resume everolimus on discharge. They plan to contact the patient after her discharge from the hospital and follow-up with her. Acute on chronic CKD stage III creatinine 2.3 on admission, Creatinine 1.8 today Avoid nephrotoxic agents Continue monitor BMP Elevated trop Denies any chest pain High sensitivity trop 27.8, then 29.3 EKG showed no acute ischemic changes Hyperkalemia -resolved Potassium 4.0 today Continue monitor BMP Poor PO intake GT in place consulted dietary to determine if G tube feedings would be beneficial until pt tolerating PO intake GT flushes ordered Chronic Anemia in setting of chronic disease Anemia of acute blood loss Hgb dropped 6.6 S/P 1 unit PRBC on No sign of active bleeding Continue to hold heparin for now Continue monitor H&H DVT ppx: SCDs, Heparin on hold. if H/H stable consider to restart it BID Full code [facility] transplant team Transplant provider Dr. Moran cell # [phone] Admission and Anticipated Discharge Date Admission Date: October 23, 2021 Subjective Pt was seen in follow up of shortness of breath, likely 2/2 COPD exacerbation/pneumonia in the setting of bilateral lung transplant Pt is sitting up in bed, in no acute distress Says that she feels better Denies fevers chills, chest pain, abdominal pain, nausea or vomiting Contacted Dr. Moran, from her transplant team, and updated him on her current status, tacrolimus level, and creatinine. He recommends no changes at this time, they will follow-up with her after her discharge. Review of Systems Review of Systems: All systems reviewed & are unremarkable except as noted in Subjective Physical Exam Physical Exam: General- No acute distress Head- atraumatic Eyes- PERRL, EOMI, ENT- oropharynx clear Neck- supple, no JVD Lungs- + diffuse coarse breath sounds Heart- +mild tachycardia, no murmur Abdomen- normal bowel sounds, soft, nontender Extremities- no calf tenderness Neuro- alert, oriented x 3; PERRL, EOMI; no facial palsy; no dysarthria, moves extremities Skin- warm & dry Results & Data Results & Data ([facility]) Vital Signs (Past 12 Hours) Vital Signs Temp Pulse Pulse Pulse Resp BP BP 10/29/21 07:32 112 H 10/29/21 07:14 110 H 22 10/29/21 07:10 36.9 C 109 H 17 153/90 H 10/29/21 03:13 36.6 C 110 H 16 151/90 H 10/29/21 00:21 117 H 22 10/28/21 23:01 37.2 C 110 H 20 122/72 10/28/21 23:00 106 H Pulse Ox 10/29/21 07:32 10/29/21 07:14 100 10/29/21 07:10 100 10/29/21 03:13 97 10/29/21 00:21 94 10/28/21 23:01 91 10/28/21 23:00 Laboratory Results 10/29/21 10/29/21 10/28/21 Range/Units 07:42 07:38 20:17 Sodium 136 (136-145) mmol/L Potassium 4.0 (3.5-5.1) mmol/L Chloride 97 L (98-107) mmol/L Carbon Dioxide 35 H (21-32) mmol/L Anion Gap 4 (3-11) BUN 58 H (6-23) mg/dl Creatinine 1.84 H (0.6-1.2) mg/dl Est Cr Clr Drug Dosing 27.0 ml/min Est GFR ( Amer) 33.2 ml/min Est GFR (Non-Af Amer) 28.7 ml/min BUN/Creatinine Ratio 31.5 H (10-20) Glucose 274 H (70-99(Fasting)) mg/dl POC Glucose 297 H 163 H (70-99) mg/dl Calcium 10.4 H (8.5-10.1) mg/dl Phosphorus 3.2 (2.5-4.9) mg/dl Magnesium 1.9 (1.7-2.4) mg/dl 10/28/21 10/28/21 Range/Units 16:28 11:42 Sodium (136-145) mmol/L Potassium (3.5-5.1) mmol/L Chloride (98-107) mmol/L Carbon Dioxide (21-32) mmol/L Anion Gap (3-11) BUN (6-23) mg/dl Creatinine (0.6-1.2) mg/dl Est Cr Clr Drug Dosing ml/min Est GFR ( Amer) ml/min Est GFR (Non-Af Amer) ml/min BUN/Creatinine Ratio (10-20) Glucose (70-99(Fasting)) mg/dl POC Glucose 165 H 117 H (70-99) mg/dl Calcium (8.5-10.1) mg/dl Phosphorus (2.5-4.9) mg/dl Magnesium (1.7-2.4) mg/dl Medications Administered Current Inpatient Medications Acetaminophen (Acetaminophen 325 Mg Tab) 650 mg PO Q4H PRN PRN Reason: Pain or Fever Stop: 11/23/21 00:45 Last Admin: 10/26/21 16:17 Dose: 650 mg Documented by: Acyclovir (Acyclovir 400 Mg Tab) 400 mg PO [facility] Stop: 11/23/21 08:59 Last Admin: 10/29/21 08:13 Dose: 400 mg Documented by: Amitriptyline HCl (Amitriptyline Hcl 50 Mg Tab) 50 mg PO [facility] Stop: 11/23/21 20:59 Last Admin: 10/28/21 20:09 Dose: 50 mg Documented by: Benzonatate (Benzonatate 100 Mg Capsule) 100 mg PO TID PRN PRN Reason: Cough Stop: 11/23/21 20:34 Last Admin: 10/24/21 20:54 Dose: 100 mg Documented by: Citalopram Hydrobromide (Citalopram 20 Mg Tab) 10 mg PO DAILY@1200 [facility] Stop: 11/23/21 11:59 Last Admin: 10/28/21 12:42 Dose: 10 mg Documented by: Dextrose (Dextrose 50% 50 Ml Syringe) 25 - 50 ml IV UD PRN; Protocol PRN Reason: Hypoglycemia Protocol Stop: 11/23/21 00:45 Enteral Nutritional Formula (Novasource Renal 2.0 Fredrick 1000ml Bag) 1,000 ml GJT UD [facility]; Protocol Stop: 11/23/21 20:59 Last Admin: 10/28/21 21:46 Dose: 1,000 ml Documented by: Everolimus (Pt's Own Med: Everolimus 0.5mg) 4 ea PO BID [facility] Stop: 11/23/21 10:12 Last Admin: 10/25/21 08:39 Dose: 4 ea Documented by: Glucagon (Glucagon For Inj 1 Mg Vial) 1 mg SQ UD PRN; Protocol PRN Reason: Hypoglycemia Protocol Stop: 11/23/21 00:45 Glucose (Glucose 10 Tabs/Tube) 4 - 8 tabs PO UD PRN; Protocol PRN Reason: Hypoglycemia Protocol Stop: 11/23/21 00:45 Glucose (Glucose 40% Gel 15 Gm Tube) 15 - 30 gm PO UD PRN; Protocol PRN Reason: Hypoglycemia Protocol Stop: 11/23/21 00:45 Heparin Sodium (Porcine) (Heparin Sod 5,000 Unit/0.5 Ml Vial) 5,000 units SQ Q8 [facility] Stop: 11/23/21 05:59 Last Admin: 10/25/21 05:14 Dose: 5,000 units Documented by: Hydrocortisone (Hydrocortisone 10 Mg Tab) 20 mg PO QAM [facility] Stop: 11/23/21 08:59 Last Admin: 10/29/21 08:15 Dose: 20 mg Documented by: Hydrocortisone (Hydrocortisone 10 Mg Tab) 10 mg PO BID@1200,1630 [facility] Stop: 11/23/21 11:59 Last Admin: 10/28/21 17:33 Dose: 10 mg Documented by: Piperacillin Sod/Tazobactam (Sod 3.375 gm/ Dextrose) 115 mls @ 28.75 mls/hr IV Q8H [facility]; Protocol Stop: 10/31/21 05:59 Last Admin: 10/29/21 05:59 Dose: 28.8 mls/hr Documented by: Promethazine HCl 6.25 mg/ (Sodium Chloride) 50.25 mls @ 201 mls/hr IV Q6H PRN PRN Reason: Nausea And Vomiting Stop: 11/23/21 00:45 Last Infusion: 10/26/21 14:28 Dose: Infused Documented by: Insulin Aspart (Insulin Aspart Per Unit) 0 units SC ACHS [facility] Stop: 11/23/21 00:45 Last Admin: 10/29/21 08:11 Dose: 7 units Documented by: Insulin Glargine (Insulin Glargine Solostar 100 Units/Ml 3 Ml Pen) 5 units SC BID [facility] Stop: 11/23/21 08:59 Last Admin: 10/29/21 08:12 Dose: 5 units Documented by: Ipratropium [place] (Ipratropium [place] Neb Soln 0.02% 2.5 Ml Vial) 0.5 mg INH Q6R [facility] Stop: 11/23/21 00:59 Last Admin: 10/29/21 07:14 Dose: 0.5 mg Documented by: Lactobacillus Acidophilus (Advanced Probiotic 1250 Mg Capsule) 2 cap PO DAILY [facility] Stop: 11/28/21 08:59 Last Admin: 10/29/21 08:15 Dose: 2 cap Documented by: Levalbuterol HCl (Levalbuterol Hcl 1.25 Mg/3 Ml Neb) 1.25 mg INH Q6R [facility] Stop: 11/25/21 06:59 Last Admin: 10/29/21 07:14 Dose: 1.25 mg Documented by: Metoprolol Tartrate (Metoprolol Tartrate 50 Mg Tab) 50 mg PO BID [facility] Stop: 11/24/21 08:59 Last Admin: 10/29/21 08:15 Dose: 50 mg Documented by: Miscellaneous (Carbohydrates For Hypoglycemia ) 15 - 30 gm PO UD PRN PRN Reason: Hypoglycemia Protocol Stop: 11/23/21 00:45 Last Admin: 10/25/21 12:00 Dose: 15 gm Documented by: Miscellaneous Information (Piperacill/Tazobac Consult Active) 1 ea N/A UD PRN PRN Reason: Consult Stop: 11/22/21 22:17 Pt's Own Med: (Prevymis 480mg) 1 ea PO QAM [facility] Stop: 11/23/21 08:59 Last Admin: 10/29/21 08:15 Dose: 1 mg Documented by: Pantoprazole Sodium (Pantoprazole 40 Mg Tab) 40 mg PO DAILY@1200 [facility] Stop: 11/23/21 11:59 Last Admin: 10/28/21 12:42 Dose: 40 mg Documented by: Sennosides (Senna 8.6 Mg Tab) 17.2 mg PO [facility] Stop: 11/23/21 20:59 Last Admin: 10/28/21 20:12 Dose: Not Given Documented by: Tacrolimus (Tacrolimus 1 Mg Cap) 5 mg PO [facility] Stop: 11/23/21 20:59 Last Admin: 10/28/21 20:11 Dose: 5 mg Documented by: Tacrolimus (Tacrolimus 1 Mg Cap) 4 mg PO [facility] Stop: 11/23/21 08:59 Last Admin: 10/29/21 08:17 Dose: 4 mg Documented by: Tacrolimus (Tacrolimus 0.5 Mg Cap) [facility]: 11/23/21 08:59 Last Admin: 10/29/21 08:17 Dose: 0.5 mg Documented by: Tramadol HCl (Tramadol Hcl 50 Mg Tablet) 25 - 50 mg PO Q4H PRN PRN Reason: Pain Stop: 11/23/21 00:45
[2021-10-29] MEDS: CITALOPRAM 20 MG TAB PO SCH (12:29)
[2021-10-29] MEDS: PANTOprazole 40 MG TAB PO SCH (12:30)
[2021-10-29] MEDS: NOVASOURCE RENAL 2.0 CAL 1000ML BAG GJT SCH (22:47)
[2021-10-29] MEDS: SENNA 8.6 MG TAB PO SCH (22:49)
[2021-10-29] MEDS: AMITRIPTYLINE HCL 50 MG TAB PO SCH (23:00)
[2021-10-30] MEDS: LEVALBUTEROL HCL 1.25 MG/3 ML NEB INH SCH ×4 (00:15→19:43)
[2021-10-30] MEDS: IPRATROPIUM BROMIDE NEB SOLN 0.02% 2.5 ML VIAL INH SCH ×4 (00:15→19:43)
[2021-10-30] MEDS: PIPERACILLIN/TAZOBACTAM 3.375 GM in DEXTROSE 5% 100 ML IV SCH ×3 (05:02→22:29)
[2021-10-30 08:23] LABS: Hematocrit (blood only) 27.9 % (37-47); Hemoglobin 8.4 g/dL (12.0-16.0); Mean Corpuscular Hemoglobin 28.1 pg (25-34); Mean Corpuscular Hgb Conc 30.1 g/dL (32-36); Mean Corpuscular Volume 93.3 fL (80-100); Mean Platelet Volume 10.6 fL (7.4-10.4); Platelet Count 153 K/uL (130-400); RDW Coefficient of Variation 16.2 % (11.5-14.5); Red Blood Count 2.99 M/uL (4.2-5.4); White Blood Count 5.71 K/uL (4.8-10.8)
[2021-10-30 08:29] LABS: BUN Creatinine Ratio 30.5 (10-20); Calcium 10.8 mg/dl (8.5-10.1); Creatinine Clr Calc Pharmacy 28.6 ml/min; Est GFR (African American) 35.5 ml/min; Est GFR (Non-African American) 30.7 ml/min; Magnesium 1.9 mg/dl (1.7-2.4); Phosphorus 3.5 mg/dl (2.5-4.9); Potassium 4.1 mmol/L (3.5-5.1)
[2021-10-30] MEDS: INSULIN ASPART PER UNIT SC SCH ×4 (09:03→22:29)
[2021-10-30] MEDS: INSULIN GLARGINE SOLOSTAR 100 UNITS/ML 3 ML PEN SC SCH ×2 (09:03→22:30)
[2021-10-30] MEDS: PREVYMIS PO SCH (09:07)
[2021-10-30] MEDS: TACROLIMUS 1 MG CAP PO SCH ×2 (09:08→22:31)
[2021-10-30] MEDS: ACYCLOVIR 400 MG TAB PO SCH ×2 (09:08→22:33)
[2021-10-30] MEDS: HYDROCORTISONE 10 MG TAB PO SCH ×3 (09:09→17:16)
[2021-10-30] MEDS: ADVANCED PROBIOTIC 1250 MG CAPSULE PO SCH (09:09)
[2021-10-30] MEDS: TACROLIMUS 0.5 MG CAP PO SCH (09:10)
[2021-10-30] MEDS: METOPROLOL TARTRATE 50 MG TAB PO SCH ×2 (09:10→22:34)
--- NOTE | 2021-10-30 09:36 | Hospitalist Progress Note ---
Date of Service October 30, 2021 Assessment & Plan (1) COPD exacerbation: Plan: Acute on chronic respiratory failure with hypoxia Lung transplant status, bilateral, [facility] 2019 Present on admission with worsening SOB CXR showed Slight progression of patchy bilateral airspace opacities. Covid 19 negative Blood cx no growth Sputum cultx - ordered but uncollected (patient unable to cough up any sputum) Continue IV zosyn Azithromycin on hold Continue Hydrocortisone Continue Aggressive pulmonary toilet with levalbuterol/ipratropium, flutter valve, incentive spirometry, hypertonic saline Bactrim on hold in setting of ROYER, resume when able Tacrolimus level 11.8 (10/26 at 7am) My colleague, Dr. Dean, spoke to Dr. Moran from the transplant team that recommended to hold the everolimus. Ok to continue the Tacrolimus and Prevymis. He is educational resource coordinator until the weekend and can be reached (cell# [phone]). I contacted Dr. Moran on October 29, and updated him on tacrolimus level, and current creatinine, and patient's status. Recommends to continue as is for now, resume everolimus on discharge. They plan to contact the patient after her discharge from the hospital and follow-up with her. Acute on chronic CKD stage III creatinine 2.3 on admission, Creatinine 1.7 today Avoid nephrotoxic agents Continue monitor BMP Elevated trop Denies any chest pain High sensitivity trop 27.8, then 29.3 EKG showed no acute ischemic changes Hyperkalemia -resolved Potassium ~4 Continue monitor BMP Poor PO intake GT in place consulted dietary to determine if G tube feedings would be beneficial until pt tolerating PO intake GT flushes ordered Chronic Anemia in setting of chronic disease Anemia of acute blood loss Hgb dropped 6.6 S/P 1 unit PRBC on 10/25. No sign of active bleeding Continue to hold heparin for now Hgb 8.4, satble Continue monitor H&H DVT ppx: SCDs, Heparin on hold. if H/H stable consider to restart it BID Full code [facility] transplant team Transplant provider Dr. Moran cell # [phone] Admission and Anticipated Discharge Date Admission Date: October 23, 2021 Subjective Pt was seen in follow up of shortness of breath, likely 2/2 COPD exacerbation/pneumonia in the setting of bilateral lung transplant Pt is sitting up in bed, in no acute distress Says that she feels about the same, more short of breath w/ any mild movement Denies fevers chills, chest pain, abdominal pain, nausea or vomiting Yesterday, I contacted Dr. Moran, from her transplant team, and updated him on her current status, tacrolimus level, and creatinine. He recommends no changes at this time, they will follow-up with her after her discharge. Encouraged flutter valve and incentive spirometer, will also order the vest, per RT, patient is not using flutter valve and IS often. Review of Systems Review of Systems: All systems reviewed & are unremarkable except as noted in Subjective Physical Exam Physical Exam: General- No acute distress Head- atraumatic Eyes- PERRL, EOMI, ENT- oropharynx clear Neck- supple, no JVD Lungs- + diffuse coarse breath sounds Heart- +mild tachycardia, no murmur Abdomen- normal bowel sounds, soft, nontender Extremities- no calf tenderness Neuro- alert, oriented x 3; PERRL, EOMI; no facial palsy; no dysarthria, moves extremities Skin- warm & dry Results & Data Results & Data ([facility]) Vital Signs (Past 12 Hours) Vital Signs Temp Pulse Pulse Resp BP Pulse Ox 10/30/21 09:25 36.9 C 117 H 22 152/85 H 97 10/30/21 07:14 115 H 114 H 18 98 10/30/21 03:00 36.9 C 110 H 20 125/67 94 10/30/21 02:05 119 H 10/30/21 00:15 109 H 22 99 10/29/21 22:00 36.9 C 113 H 22 136/73 94 Laboratory Results 10/30/21 10/30/21 10/30/21 Range/Units 07:53 07:53 07:51 WBC 5.71 (4.8-10.8) K/uL RBC 2.99 L (4.2-5.4) M/uL Hgb 8.4 L (12.0-16.0) g/dL Hct 27.9 L (37-47) % MCV 93.3 (80-100) fL MCH 28.1 (25-34) pg MCHC 30.1 L (32-36) g/dL RDW Std Deviation 55.0 H (36.4-46.3) fL RDW Coeff of Janina 16.2 H (11.5-14.5) % Plt Count 153 (130-400) K/uL MPV 10.6 H (7.4-10.4) fL Sodium 136 (136-145) mmol/L Potassium 4.1 (3.5-5.1) mmol/L Chloride 96 L (98-107) mmol/L Carbon Dioxide 38 H (21-32) mmol/L Anion Gap 2 L (3-11) BUN 53 H (6-23) mg/dl Creatinine 1.74 H (0.6-1.2) mg/dl Est Cr Clr Drug Dosing 28.6 ml/min Est GFR ( Amer) 35.5 ml/min Est GFR (Non-Af Amer) 30.7 ml/min BUN/Creatinine Ratio 30.5 H (10-20) Glucose 200 H (70-99(Fasting)) mg/dl POC Glucose 212 H (70-99) mg/dl Calcium 10.8 H (8.5-10.1) mg/dl Phosphorus 3.5 (2.5-4.9) mg/dl Magnesium 1.9 (1.7-2.4) mg/dl A. phagocytophilum DNA (Negative) 10/29/21 10/29/21 10/29/21 Range/Units 20:21 16:37 12:05 WBC (4.8-10.8) K/uL RBC (4.2-5.4) M/uL Hgb (12.0-16.0) g/dL Hct (37-47) % MCV (80-100) fL MCH (25-34) pg MCHC (32-36) g/dL RDW Std Deviation (36.4-46.3) fL RDW Coeff of Janina (11.5-14.5) % Plt Count (130-400) K/uL MPV (7.4-10.4) fL Sodium (136-145) mmol/L Potassium (3.5-5.1) mmol/L Chloride (98-107) mmol/L Carbon Dioxide (21-32) mmol/L Anion Gap (3-11) BUN (6-23) mg/dl Creatinine (0.6-1.2) mg/dl Est Cr Clr Drug Dosing ml/min Est GFR ( Amer) ml/min Est GFR (Non-Af Amer) ml/min BUN/Creatinine Ratio (10-20) Glucose (70-99(Fasting)) mg/dl POC Glucose 193 H 156 H 123 H (70-99) mg/dl Calcium (8.5-10.1) mg/dl Phosphorus (2.5-4.9) mg/dl Magnesium (1.7-2.4) mg/dl A. phagocytophilum DNA (Negative) 10/23/21 Range/Units 18:29 WBC (4.8-10.8) K/uL RBC (4.2-5.4) M/uL Hgb (12.0-16.0) g/dL Hct (37-47) % MCV (80-100) fL MCH (25-34) pg MCHC (32-36) g/dL RDW Std Deviation (36.4-46.3) fL RDW Coeff of Janina (11.5-14.5) % Plt Count (130-400) K/uL MPV (7.4-10.4) fL Sodium (136-145) mmol/L Potassium (3.5-5.1) mmol/L Chloride (98-107) mmol/L Carbon Dioxide (21-32) mmol/L Anion Gap (3-11) BUN (6-23) mg/dl Creatinine (0.6-1.2) mg/dl Est Cr Clr Drug Dosing ml/min Est GFR ( Amer) ml/min Est GFR (Non-Af Amer) ml/min BUN/Creatinine Ratio (10-20) Glucose (70-99(Fasting)) mg/dl POC Glucose (70-99) mg/dl Calcium (8.5-10.1) mg/dl Phosphorus (2.5-4.9) mg/dl Magnesium (1.7-2.4) mg/dl A. phagocytophilum DNA Negative (Negative) Medications Administered Current Inpatient Medications Acetaminophen (Acetaminophen 325 Mg Tab) 650 mg PO Q4H PRN PRN Reason: Pain or Fever Stop: 11/23/21 00:45 Last Admin: 10/26/21 16:17 Dose: 650 mg Documented by: Acyclovir (Acyclovir 400 Mg Tab) 400 mg PO [facility] Stop: 11/23/21 08:59 Last Admin: 10/30/21 09:08 Dose: 400 mg Documented by: Amitriptyline HCl (Amitriptyline Hcl 50 Mg Tab) 50 mg PO HS [facility] Stop: 11/23/21 20:59 Last Admin: 10/29/21 23:00 Dose: 50 mg Documented by: Benzonatate (Benzonatate 100 Mg Capsule) 100 mg PO TID PRN PRN Reason: Cough Stop: 11/23/21 20:34 Last Admin: 10/24/21 20:54 Dose: 100 mg Documented by: Citalopram Hydrobromide (Citalopram 20 Mg Tab) 10 mg PO DAILY@1200 [facility] Stop: 11/23/21 11:59 Last Admin: 10/29/21 12:29 Dose: 10 mg Documented by: Dextrose (Dextrose 50% 50 Ml Syringe) 25 - 50 ml IV UD PRN; Protocol PRN Reason: Hypoglycemia Protocol Stop: 11/23/21 00:45 Enteral Nutritional Formula (Novasource Renal 2.0 [place]rick 1000ml Bag) 1,000 ml GJT UD [facility]; Protocol Stop: 11/23/21 20:59 Last Admin: 10/29/21 22:47 Dose: 1,000 ml Documented by: Everolimus (Pt's Own Med: Everolimus 0.5mg) 4 ea PO BID [facility] Stop: 11/23/21 10:12 Last Admin: 10/25/21 08:39 Dose: 4 ea Documented by: Glucagon (Glucagon For Inj 1 Mg Vial) 1 mg SQ UD PRN; Protocol PRN Reason: Hypoglycemia Protocol Stop: 11/23/21 00:45 Glucose (Glucose 10 Tabs/Tube) 4 - 8 tabs PO UD PRN; Protocol PRN Reason: Hypoglycemia Protocol Stop: 11/23/21 00:45 Glucose (Glucose 40% Gel 15 Gm Tube) 15 - 30 gm PO UD PRN; Protocol PRN Reason: Hypoglycemia Protocol Stop: 11/23/21 00:45 Heparin Sodium (Porcine) (Heparin Sod 5,000 Unit/0.5 Ml Vial) 5,000 units SQ Q8 [facility] Stop: 11/23/21 05:59 Last Admin: 10/25/21 05:14 Dose: 5,000 units Documented by: Hydrocortisone (Hydrocortisone 10 Mg Tab) 20 mg PO QAM [facility] Stop: 11/23/21 08:59 Last Admin: 10/30/21 09:09 Dose: 20 mg Documented by: Hydrocortisone (Hydrocortisone 10 Mg Tab) 10 mg PO BID@1200,1630 [facility] Stop: 11/23/21 11:59 Last Admin: 10/29/21 17:42 Dose: 10 mg Documented by: Piperacillin Sod/Tazobactam (Sod 3.375 gm/ Dextrose) 115 mls @ 28.75 mls/hr IV Q8H [facility]; Protocol Stop: 10/31/21 05:59 Last Admin: 10/30/21 05:02 Dose: 28.8 mls/hr Documented by: Promethazine HCl 6.25 mg/ (Sodium Chloride) 50.25 mls @ 201 mls/hr IV Q6H PRN PRN Reason: Nausea And Vomiting Stop: 11/23/21 00:45 Last Infusion: 10/26/21 14:28 Dose: Infused Documented by: Insulin Aspart (Insulin Aspart Per Unit) 0 units SC ACHS [facility] Stop: 11/23/21 00:45 Last Admin: 10/30/21 09:03 Dose: 3 units Documented by: Insulin Glargine (Insulin Glargine Solostar 100 Units/Ml 3 Ml Pen) 5 units SC BID [facility] Stop: 11/23/21 08:59 Last Admin: 10/30/21 09:03 Dose: 5 units Documented by: Ipratropium [place] (Ipratropium [place] Neb Soln 0.02% 2.5 Ml Vial) 0.5 mg INH Q6R [facility] Stop: 11/23/21 00:59 Last Admin: 10/30/21 07:14 Dose: 0.5 mg Documented by: Lactobacillus Acidophilus (Advanced Probiotic 1250 Mg Capsule) 2 cap PO DAILY [facility] Stop: 11/28/21 08:59 Last Admin: 10/30/21 09:09 Dose: 2 cap Documented by: Levalbuterol HCl (Levalbuterol Hcl 1.25 Mg/3 Ml Neb) 1.25 mg INH Q6R [facility] Stop: 11/25/21 06:59 Last Admin: 10/30/21 07:14 Dose: 1.25 mg Documented by: Metoprolol Tartrate (Metoprolol Tartrate 50 Mg Tab) 50 mg PO BID [facility] Stop: 11/24/21 08:59 Last Admin: 10/30/21 09:10 Dose: 50 mg Documented by: Miscellaneous (Carbohydrates For Hypoglycemia ) 15 - 30 gm PO UD PRN PRN Reason: Hypoglycemia Protocol Stop: 11/23/21 00:45 Last Admin: 10/25/21 12:00 Dose: 15 gm Documented by: Miscellaneous Information (Piperacill/Tazobac Consult Active) 1 ea N/A UD PRN PRN Reason: Consult Stop: 11/22/21 22:17 Pt's Own Med: ([facility]ymis 480mg) [facility] [place]: 11/23/21 08:59 Last Admin: 10/30/21 09:07 Dose: 480 mg Documented by: Pantoprazole Sodium (Pantoprazole 40 Mg Tab) 40 mg PO DAILY@1200 [facility] Stop: 11/23/21 11:59 Last Admin: 10/29/21 12:30 Dose: 40 mg Documented by: Sennosides (Senna 8.6 Mg Tab) 17.2 mg PO [facility] Stop: 11/23/21 20:59 Last Admin: 10/29/21 22:49 Dose: Not Given Documented by: Tacrolimus (Tacrolimus 1 Mg Cap) 5 mg PO [facility] Stop: 11/23/21 20:59 Last Admin: 10/29/21 22:51 Dose: 5 mg Documented by: Tacrolimus (Tacrolimus 1 Mg Cap) 4 mg PO [facility] Stop: 11/23/21 08:59 Last Admin: 10/30/21 09:08 Dose: 4 mg Documented by: Tacrolimus (Tacrolimus 0.5 Mg Cap) [facility] [place]: 11/23/21 08:59 Last Admin: 10/30/21 09:10 Dose: 0.5 mg Documented by: Tramadol HCl (Tramadol Hcl 50 Mg Tablet) 25 - 50 mg PO Q4H PRN PRN Reason: Pain Stop: 11/23/21 00:45
[2021-10-30] MEDS: CITALOPRAM 20 MG TAB PO SCH (13:23)
[2021-10-30] MEDS: PANTOprazole 40 MG TAB PO SCH (13:23)
[2021-10-30] MEDS: NOVASOURCE RENAL 2.0 CAL 1000ML BAG GJT SCH (22:29)
[2021-10-30] MEDS: SENNA 8.6 MG TAB PO SCH (22:33)
[2021-10-30] MEDS: AMITRIPTYLINE HCL 50 MG TAB PO SCH (22:34)
[2021-10-31] MEDS: PIPERACILLIN/TAZOBACTAM 3.375 GM in DEXTROSE 5% 100 ML IV SCH ×3 (07:32→21:12)
[2021-10-31] MEDS: IPRATROPIUM BROMIDE NEB SOLN 0.02% 2.5 ML VIAL INH SCH ×4 (07:50→19:06)
[2021-10-31] MEDS: LEVALBUTEROL HCL 1.25 MG/3 ML NEB INH SCH ×4 (07:50→19:06)
[2021-10-31] MEDS: INSULIN GLARGINE SOLOSTAR 100 UNITS/ML 3 ML PEN SC SCH ×2 (08:40→21:09)
[2021-10-31] MEDS: INSULIN ASPART PER UNIT SC SCH ×4 (08:40→21:08)
[2021-10-31 08:50] LABS: BUN Creatinine Ratio 30.2 (10-20); Calcium 10.4 mg/dl (8.5-10.1); Creatinine Clr Calc Pharmacy 29.4 ml/min; Est GFR (African American) 36.8 ml/min; Est GFR (Non-African American) 31.8 ml/min; Magnesium 1.9 mg/dl (1.7-2.4); Potassium 3.9 mmol/L (3.5-5.1)
[2021-10-31] MEDS: ACYCLOVIR 400 MG TAB PO SCH ×2 (08:55→21:12)
[2021-10-31] MEDS: HYDROCORTISONE 10 MG TAB PO SCH ×3 (08:55→17:38)
[2021-10-31] MEDS: METOPROLOL TARTRATE 50 MG TAB PO SCH ×2 (08:56→21:13)
[2021-10-31] MEDS: ADVANCED PROBIOTIC 1250 MG CAPSULE PO SCH (08:56)
[2021-10-31] MEDS: PREVYMIS PO SCH (08:56)
[2021-10-31] MEDS: TACROLIMUS 0.5 MG CAP PO SCH (08:58)
[2021-10-31] MEDS: TACROLIMUS 1 MG CAP PO SCH ×2 (08:58→21:15)
[2021-10-31] MEDS: PANTOprazole 40 MG TAB PO SCH (12:44)
[2021-10-31] MEDS: CITALOPRAM 20 MG TAB PO SCH (13:51)
--- NOTE | 2021-10-31 14:20 | Hospitalist Progress Note ---
Date of Service October 31, 2021 Assessment & Plan (1) COPD exacerbation: Plan: Acute on chronic respiratory failure with hypoxia Lung transplant status, bilateral, [facility] 2019 Present on admission with worsening SOB CXR showed Slight progression of patchy bilateral airspace opacities. Covid 19 negative Blood cx no growth Sputum cultx - ordered but uncollected (patient unable to cough up any sputum) Continue IV zosyn Azithromycin on hold Continue Hydrocortisone Continue Aggressive pulmonary toilet with levalbuterol/ipratropium, flutter valve, incentive spirometry, hypertonic saline Bactrim on hold in setting of ROYER, resume when able Tacrolimus level 11.8 (10/26 at 7am) My colleague, Dr. Dean, spoke to Dr. Moran from the transplant team that recommended to hold the everolimus. Ok to continue the Tacrolimus and Prevymis. He is component lab tech until the weekend and can be reached (cell# [phone]). I contacted Dr. Moran on October 29, and updated him on tacrolimus level, and current creatinine, and patient's status. Recommends to continue as is for now, resume everolimus on discharge. They plan to contact the patient after her discharge from the hospital and follow-up with her. Acute on chronic CKD stage III creatinine 2.3 on admission, Creatinine 1.7 today Avoid nephrotoxic agents Continue monitor BMP Elevated trop Denies any chest pain High sensitivity trop 27.8, then 29.3 EKG showed no acute ischemic changes Hyperkalemia -resolved Potassium ~4 Continue monitor BMP Poor PO intake GT in place consulted dietary to determine if G tube feedings would be beneficial until pt tolerating PO intake GT flushes ordered Chronic Anemia in setting of chronic disease Anemia of acute blood loss Hgb dropped 6.6 S/P 1 unit PRBC on 10/25. No sign of active bleeding Continue to hold heparin for now Hgb 8.4, satble Continue monitor H&H DVT ppx: SCDs, Heparin on hold. if H/H stable consider to restart it BID Full code [facility] transplant team Transplant provider Dr. Moran cell # [phone] Admission and Anticipated Discharge Date Admission Date: October 23, 2021 Subjective Pt was seen in follow up of shortness of breath, likely 2/2 COPD exacerbation/pneumonia in the setting of bilateral lung transplant Pt is sitting up in bed, in no acute distress Says that she feels better Denies fevers chills, chest pain, abdominal pain, nausea or vomiting I contacted Dr. Moran, from her transplant team, and updated him on her current status, tacrolimus level, and creatinine. He recommends no changes at this time, they will follow-up with her after her discharge. Encouraged flutter valve and incentive spirometer, will also ordered the percussion vest, per RT. Review of Systems 2 Review of Systems: All systems reviewed & are unremarkable except as noted in Subjective Physical Exam Physical Exam: General- No acute distress Head- atraumatic Eyes- PERRL, EOMI, ENT- oropharynx clear Neck- supple, no JVD Lungs- + diffuse coarse breath sounds Heart- +mild tachycardia, no murmur Abdomen- normal bowel sounds, soft, nontender Extremities- no calf tenderness Neuro- alert, oriented x 3; PERRL, EOMI; no facial palsy; no dysarthria, moves extremities Skin- warm & dry Results & Data Results & Data ([facility]) Vital Signs (Past 12 Hours) Vital Signs Temp Pulse Pulse Resp BP Pulse Ox 10/31/21 13:15 73 18 98 10/31/21 12:04 36.9 C 108 H 18 140/79 98 10/31/21 08:00 114 H 10/31/21 07:53 110 H 16 98 10/31/21 07:47 36.4 C L 104 H 18 145/88 H 96 10/31/21 03:00 36.6 C 108 H 20 120/80 98 Laboratory Results 10/31/21 10/31/21 10/31/21 Range/Units 11:06 08:01 07:22 Sodium 136 (136-145) mmol/L Potassium 3.9 (3.5-5.1) mmol/L Chloride 95 L (98-107) mmol/L Carbon Dioxide 37 H (21-32) mmol/L Anion Gap 4 (3-11) BUN 51 H (6-23) mg/dl Creatinine 1.69 H (0.6-1.2) mg/dl Est Cr Clr Drug Dosing 29.4 ml/min Est GFR ( Amer) 36.8 ml/min Est GFR (Non-Af Amer) 31.8 ml/min BUN/Creatinine Ratio 30.2 H (10-20) Glucose 209 H (70-99(Fasting)) mg/dl POC Glucose 122 H 224 H (70-99) mg/dl Calcium 10.4 H (8.5-10.1) mg/dl Magnesium 1.9 (1.7-2.4) mg/dl 10/30/21 10/30/21 Range/Units 20:31 16:41 Sodium (136-145) mmol/L Potassium (3.5-5.1) mmol/L Chloride (98-107) mmol/L Carbon Dioxide (21-32) mmol/L Anion Gap (3-11) BUN (6-23) mg/dl Creatinine (0.6-1.2) mg/dl Est Cr Clr Drug Dosing ml/min Est GFR ( Amer) ml/min Est GFR (Non-Af Amer) ml/min BUN/Creatinine Ratio (10-20) Glucose (70-99(Fasting)) mg/dl POC Glucose 174 H 156 H (70-99) mg/dl Calcium (8.5-10.1) mg/dl Magnesium (1.7-2.4) mg/dl Medications Administered Current Inpatient Medications Acetaminophen (Acetaminophen 325 Mg Tab) 650 mg PO Q4H PRN PRN Reason: Pain or Fever Stop: 11/23/21 00:45 Last Admin: 10/26/21 16:17 Dose: 650 mg Documented by: Acyclovir (Acyclovir 400 Mg Tab) 400 mg PO [facility] Stop: 11/23/21 08:59 Last Admin: 10/31/21 08:55 Dose: 400 mg Documented by: Amitriptyline HCl (Amitriptyline Hcl 50 Mg Tab) 50 mg PO HS [facility] Stop: 11/23/21 20:59 Last Admin: 10/30/21 22:34 Dose: 50 mg Documented by: Benzonatate (Benzonatate 100 Mg Capsule) 100 mg PO TID PRN PRN Reason: Cough Stop: 11/23/21 20:34 Last Admin: 10/24/21 20:54 Dose: 100 mg Documented by: Citalopram Hydrobromide (Citalopram 20 Mg Tab) 10 mg PO DAILY@1200 [facility] Stop: 11/23/21 11:59 Last Admin: 10/31/21 13:51 Dose: 10 mg Documented by: Dextrose (Dextrose 50% 50 Ml Syringe) 25 - 50 ml IV UD PRN; Protocol PRN Reason: Hypoglycemia Protocol Stop: 11/23/21 00:45 Enteral Nutritional Formula (Novasource Renal 2.0 Fredrick 1000ml Bag) 1,000 ml GJT UD [facility]; Protocol Stop: 11/23/21 20:59 Last Admin: 10/30/21 22:29 Dose: 1,000 ml Documented by: Everolimus (Pt's Own Med: Everolimus 0.5mg) 4 ea PO BID [facility] Stop: 11/23/21 10:12 Last Admin: 10/25/21 08:39 Dose: 4 ea Documented by: Glucagon (Glucagon For Inj 1 Mg Vial) 1 mg SQ UD PRN; Protocol PRN Reason: Hypoglycemia Protocol Stop: 11/23/21 00:45 Glucose (Glucose 10 Tabs/Tube) 4 - 8 tabs PO UD PRN; Protocol PRN Reason: Hypoglycemia Protocol Stop: 11/23/21 00:45 Glucose (Glucose 40% Gel 15 Gm Tube) 15 - 30 gm PO UD PRN; Protocol PRN Reason: Hypoglycemia Protocol Stop: 11/23/21 00:45 Heparin Sodium (Porcine) (Heparin Sod 5,000 Unit/0.5 Ml Vial) 5,000 units SQ Q8 [facility] Stop: 11/23/21 05:59 Last Admin: 10/25/21 05:14 Dose: 5,000 units Documented by: Hydrocortisone (Hydrocortisone 10 Mg Tab) 20 mg PO QAM [facility] Stop: 11/23/21 08:59 Last Admin: 10/31/21 08:55 Dose: 20 mg Documented by: Hydrocortisone (Hydrocortisone 10 Mg Tab) 10 mg PO BID@1200,1630 [facility] Stop: 11/23/21 11:59 Last Admin: 10/31/21 12:43 Dose: 10 mg Documented by: Piperacillin Sod/Tazobactam (Sod 3.375 gm/ Dextrose) 115 mls @ 28.75 mls/hr IV Q8H [facility]; Protocol Stop: 11/01/21 05:59 Last Admin: 10/31/21 13:51 Dose: 28.8 mls/hr Documented by: Promethazine HCl 6.25 mg/ (Sodium Chloride) 50.25 mls @ 201 mls/hr IV Q6H PRN PRN Reason: Nausea And Vomiting Stop: 11/23/21 00:45 Last Infusion: 10/26/21 14:28 Dose: Infused Documented by: Insulin Aspart (Insulin Aspart Per Unit) 0 units SC ACHS [facility] Stop: 11/23/21 00:45 Last Admin: 10/31/21 12:42 Dose: 1 units Documented by: Insulin Glargine (Insulin Glargine Solostar 100 Units/Ml 3 Ml Pen) 5 units SC BID [facility] Stop: 11/23/21 08:59 Last Admin: 10/31/21 08:40 Dose: 5 units Documented by: Ipratropium [place] (Ipratropium [place] Neb Soln 0.02% 2.5 Ml Vial) 0.5 mg INH Q6R [facility] Stop: 11/23/21 00:59 Last Admin: 10/31/21 13:14 Dose: 0.5 mg Documented by: Lactobacillus Acidophilus (Advanced Probiotic 1250 Mg Capsule) 2 cap PO DAILY [facility] Stop: 11/28/21 08:59 Last Admin: 10/31/21 08:56 Dose: 2 cap Documented by: Levalbuterol HCl (Levalbuterol Hcl 1.25 Mg/3 Ml Neb) 1.25 mg INH Q6R [facility] Stop: 11/25/21 06:59 Last Admin: 10/31/21 13:15 Dose: 1.25 mg Documented by: Metoprolol Tartrate (Metoprolol Tartrate 50 Mg Tab) 50 mg PO BID [facility] Stop: 11/24/21 08:59 Last Admin: 10/31/21 08:56 Dose: 50 mg Documented by: Miscellaneous (Carbohydrates For Hypoglycemia ) 15 - 30 gm PO UD PRN PRN Reason: Hypoglycemia Protocol Stop: 11/23/21 00:45 Last Admin: 10/25/21 12:00 Dose: 15 gm Documented by: Miscellaneous Information (Piperacill/Tazobac Consult Active) 1 ea N/A UD PRN PRN Reason: Consult Stop: 11/01/21 05:59 Pt's Own Med: (Prevymis 480mg) 1 ea PO QAM [facility] Stop: 11/23/21 08:59 Last Admin: 10/31/21 08:56 Dose: 480 mg Documented by: Pantoprazole Sodium (Pantoprazole 40 Mg Tab) 40 mg PO DAILY@1200 [facility] Stop: 11/23/21 11:59 Last Admin: 10/31/21 12:44 Dose: 40 mg Documented by: Sennosides (Senna 8.6 Mg Tab) 17.2 mg PO [facility] Stop: 11/23/21 20:59 Last Admin: 10/30/21 22:33 Dose: Not Given Documented by: Tacrolimus (Tacrolimus 1 Mg Cap) 5 mg PO [facility] Stop: 11/23/21 20:59 Last Admin: 10/30/21 22:31 Dose: 5 mg Documented by: Tacrolimus ([facility] 1 Mg Cap) [facility] Stop: 11/23/21 08:59 Last Admin: 10/31/21 08:58 Dose: 4 mg Documented by: Tacrolimus (Tacrolimus 0.5 Mg Cap) 0.5 mg PO QAM [facility] Stop: 11/23/21 08:59 Last Admin: 10/31/21 08:58 Dose: 0.5 mg Documented by: Tramadol HCl (Tramadol Hcl 50 Mg Tablet) 25 - 50 mg PO Q4H PRN PRN Reason: Pain Stop: 11/23/21 00:45
[2021-10-31] MEDS ORDERED: NOVASOURCE RENAL 2.0 CAL 1000ML BAG GJT SCH (19:00)
[2021-10-31] MEDS ORDERED: HEPARIN SOD 5,000 UNIT/0.5 ML VIAL SQ SCH (21:00)
[2021-10-31] MEDS: AMITRIPTYLINE HCL 50 MG TAB PO SCH (21:14)
[2021-10-31] MEDS: SENNA 8.6 MG TAB PO SCH (21:15)
[2021-11-01] MEDS: IPRATROPIUM BROMIDE NEB SOLN 0.02% 2.5 ML VIAL INH SCH ×4 (00:08→19:01)
[2021-11-01] MEDS: LEVALBUTEROL HCL 1.25 MG/3 ML NEB INH SCH ×4 (00:08→19:01)
[2021-11-01] MEDS: ACETAMINOPHEN 325 MG TAB PO PRN (06:49)
[2021-11-01 06:56] LABS: Hematocrit (blood only) 26.1 % (37-47); Hemoglobin 8.1 g/dL (12.0-16.0)
[2021-11-01 07:18] LABS: BUN Creatinine Ratio 28.6 (10-20); Calcium 10.2 mg/dl (8.5-10.1); Creatinine Clr Calc Pharmacy 26.9 ml/min; Est GFR (Non-African American) 28.5 ml/min; Potassium 3.8 mmol/L (3.5-5.1)
--- NOTE | 2021-11-01 08:12 | Hospitalist Progress Note ---
Date of Service November 01, 2021 Assessment & Plan (1) COPD exacerbation: Plan: Acute on chronic respiratory failure with hypoxia Lung transplant status, bilateral, [facility] 2019 Present on admission with worsening SOB CXR showed Slight progression of patchy bilateral airspace opacities. Covid 19 negative Blood cx no growth Sputum cultx - ordered but uncollected (patient unable to cough up any sputum) Continued IV zosyn , will stop now, transition to PO Augmentin (11/01), will repeat CXR Azithromycin on hold Continue Hydrocortisone Continue Aggressive pulmonary toilet with levalbuterol/ipratropium, flutter valve, incentive spirometry, hypertonic saline Bactrim on hold in setting of ROYER, resume when able Tacrolimus level 11.8 (10/26 at 7am) My colleague, Dr. Dean, spoke to Dr. Moran from the transplant team that recommended to hold the everolimus. Ok to continue the Tacrolimus and Prevymis. He is convention services manager until the weekend and can be reached (cell# [phone]). I contacted Dr. Moran on October 29, and updated him on tacrolimus level, and current creatinine, and patient's status. Recommends to continue as is for now, resume everolimus on discharge. They plan to contact the patient after her discharge from the hospital and follow-up with her. Acute on chronic CKD stage III creatinine 2.3 on admission, Creatinine 1.8 today Avoid nephrotoxic agents Continue monitor BMP Elevated trop Denies any chest pain High sensitivity trop 27.8, then 29.3 EKG showed no acute ischemic changes Hyperkalemia -resolved Potassium ~4 Continue monitor BMP Poor PO intake GT in place consulted dietary to determine if G tube feedings would be beneficial until pt tolerating PO intake GT flushes ordered Chronic Anemia in setting of chronic disease Anemia of acute blood loss Hgb dropped 6.6 S/P 1 unit PRBC on 10/25. No sign of active bleeding Continue to hold heparin for now Hgb 8.4, satble Continue monitor H&H DVT ppx: SCDs, Heparin on hold. if H/H stable consider to restart it BID Full code [facility] transplant team Transplant provider Dr. Moran cell # [phone] Admission and Anticipated Discharge Date Admission Date: October 23, 2021 Subjective Pt was seen in follow up of shortness of breath, likely 2/2 COPD exacerbation/pneumonia in the setting of bilateral lung transplant Pt is sitting up in bed, in no acute distress Says that she feels better but sill "wheezing" Denies fevers chills, chest pain, abdominal pain, nausea or vomiting I contacted Dr. Moran, from her transplant team, and updated him on her current status, tacrolimus level, and creatinine. He recommends no changes at this time, they will follow-up with her after her discharge. Encouraged flutter valve and incentive spirometer, will also ordered the percussion vest, per RT. Review of Systems Review of Systems: All systems reviewed & are unremarkable except as noted in Subjective Physical Exam Physical Exam: General- No acute distress Head- atraumatic Eyes- PERRL, EOMI, ENT- oropharynx clear Neck- supple, no JVD Lungs- + diffuse coarse breath sounds Heart- +mild tachycardia, no murmur Abdomen- normal bowel sounds, soft, nontender Extremities- no calf tenderness Neuro- alert, oriented x 3; PERRL, EOMI; no facial palsy; no dysarthria, moves extremities Skin- warm & dry Results & Data Results & Data ([facility]) Vital Signs (Past 12 Hours) Vital Signs Temp Pulse Pulse Resp BP BP Pulse Ox 11/01/21 07:49 36.5 C 107 H 20 158/90 H 99 11/01/21 07:28 112 H 11/01/21 07:18 108 H 19 98 11/01/21 02:34 36.6 C 108 H 18 149/93 H 100 11/01/21 00:23 117 H 11/01/21 00:08 107 H 20 98 10/31/21 23:15 37.0 C 107 H 18 136/84 99 Laboratory Results 11/01/21 11/01/21 11/01/21 Range/Units 07:35 06:12 06:12 Hgb 8.1 L (12.0-16.0) g/dL Hct 26.1 L (37-47) % Sodium 137 (136-145) mmol/L Potassium 3.8 (3.5-5.1) mmol/L Chloride 95 L (98-107) mmol/L Carbon Dioxide 37 H (21-32) mmol/L Anion Gap 5 (3-11) BUN 53 H (6-23) mg/dl Creatinine 1.85 H (0.6-1.2) mg/dl Est Cr Clr Drug Dosing 26.9 ml/min Est GFR ( Amer) 33.0 ml/min Est GFR (Non-Af Amer) 28.5 ml/min BUN/Creatinine Ratio 28.6 H (10-20) Glucose 204 H (70-99(Fasting)) mg/dl POC Glucose 162 H (70-99) mg/dl Calcium 10.2 H (8.5-10.1) mg/dl Phosphorus 4.0 (2.5-4.9) mg/dl Magnesium 2.0 (1.7-2.4) mg/dl 10/31/21 10/31/21 10/31/21 Range/Units 20:17 16:41 11:06 Hgb (12.0-16.0) g/dL Hct (37-47) % Sodium (136-145) mmol/L Potassium (3.5-5.1) mmol/L Chloride (98-107) mmol/L Carbon Dioxide (21-32) mmol/L Anion Gap (3-11) BUN (6-23) mg/dl Creatinine (0.6-1.2) mg/dl Est Cr Clr Drug Dosing ml/min Est GFR ( Amer) ml/min Est GFR (Non-Af Amer) ml/min BUN/Creatinine Ratio (10-20) Glucose (70-99(Fasting)) mg/dl POC Glucose 250 H 167 H 122 H (70-99) mg/dl Calcium (8.5-10.1) mg/dl Phosphorus (2.5-4.9) mg/dl Magnesium (1.7-2.4) mg/dl 10/31/21 Range/Units 08:01 Hgb (12.0-16.0) g/dL Hct (37-47) % Sodium 136 (136-145) mmol/L Potassium 3.9 (3.5-5.1) mmol/L Chloride 95 L (98-107) mmol/L Carbon Dioxide 37 H (21-32) mmol/L Anion Gap 4 (3-11) BUN 51 H (6-23) mg/dl Creatinine 1.69 H (0.6-1.2) mg/dl Est Cr Clr Drug Dosing 29.4 ml/min Est GFR ( Amer) 36.8 ml/min Est GFR (Non-Af Amer) 31.8 ml/min BUN/Creatinine Ratio 30.2 H (10-20) Glucose 209 H (70-99(Fasting)) mg/dl POC Glucose (70-99) mg/dl Calcium 10.4 H (8.5-10.1) mg/dl Phosphorus (2.5-4.9) mg/dl Magnesium 1.9 (1.7-2.4) mg/dl Medications Administered Current Inpatient Medications Acetaminophen (Acetaminophen 325 Mg Tab) 650 mg PO Q4H PRN PRN Reason: Pain or Fever Stop: 11/23/21 00:45 Last Admin: 11/01/21 06:49 Dose: 650 mg Documented by: Acyclovir (Acyclovir 400 Mg Tab) 400 mg PO [facility] Stop: 11/23/21 08:59 Last Admin: 10/31/21 21:12 Dose: 400 mg Documented by: Amitriptyline HCl (Amitriptyline Hcl 50 Mg Tab) 50 mg PO HS [facility] Stop: 11/23/21 20:59 Last Admin: 10/31/21 21:14 Dose: 50 mg Documented by: Benzonatate (Benzonatate 100 Mg Capsule) 100 mg PO TID PRN PRN Reason: Cough Stop: 11/23/21 20:34 Last Admin: 10/24/21 20:54 Dose: 100 mg Documented by: Citalopram Hydrobromide (Citalopram 20 Mg Tab) 10 mg PO DAILY@1200 [facility] Stop: 11/23/21 11:59 Last Admin: 10/31/21 13:51 Dose: 10 mg Documented by: Dextrose (Dextrose 50% 50 Ml Syringe) 25 - 50 ml IV UD PRN; Protocol PRN Reason: Hypoglycemia Protocol Stop: 11/23/21 00:45 Enteral Nutritional Formula (Novasource Renal 2.0 Fredrick 1000ml Bag) 1,000 ml GJT UD [facility]; Protocol Stop: 11/30/21 18:59 Last Admin: 10/31/21 18:34 Dose: 1,000 ml Documented by: Everolimus (Pt's Own Med: Everolimus 0.5mg) 4 ea PO BID [facility] Stop: 11/23/21 10:12 Last Admin: 10/25/21 08:39 Dose: 4 ea Documented by: Glucagon (Glucagon For Inj 1 Mg Vial) 1 mg SQ UD PRN; Protocol PRN Reason: Hypoglycemia Protocol Stop: 11/23/21 00:45 Glucose (Glucose 10 Tabs/Tube) 4 - 8 tabs PO UD PRN; Protocol PRN Reason: Hypoglycemia Protocol Stop: 11/23/21 00:45 Glucose (Glucose 40% Gel 15 Gm Tube) 15 - 30 gm PO UD PRN; Protocol PRN Reason: Hypoglycemia Protocol Stop: 11/23/21 00:45 Heparin Sodium (Porcine) (Heparin Sod 5,000 Unit/0.5 Ml Vial) 5,000 units SQ Q12 [facility] Stop: 11/30/21 20:59 Hydrocortisone (Hydrocortisone 10 Mg Tab) 20 mg PO QAM [facility] Stop: 11/23/21 08:59 Last Admin: 10/31/21 08:55 Dose: 20 mg Documented by: Hydrocortisone (Hydrocortisone 10 Mg Tab) 10 mg PO BID@1200,1630 [facility] Stop: 11/23/21 11:59 Last Admin: 10/31/21 17:38 Dose: 10 mg Documented by: Promethazine HCl 6.25 mg/ (Sodium Chloride) 50.25 mls @ 201 mls/hr IV Q6H PRN PRN Reason: Nausea And Vomiting Stop: 11/23/21 00:45 Last Infusion: 10/26/21 14:28 Dose: Infused Documented by: Insulin Aspart (Insulin Aspart Per Unit) 0 units SC ACHS [facility] Stop: 11/23/21 00:45 Last Admin: 10/31/21 21:08 Dose: 5 units Documented by: Insulin Glargine (Insulin Glargine Solostar 100 Units/Ml 3 Ml Pen) 5 units SC BID [facility] Stop: 11/23/21 08:59 Last Admin: 10/31/21 21:09 Dose: 5 units Documented by: Ipratropium [place] (Ipratropium [place] Neb Soln 0.02% 2.5 Ml Vial) 0.5 mg INH Q6R [facility] Stop: 11/23/21 00:59 Last Admin: 11/01/21 07:17 Dose: 0.5 mg Documented by: Lactobacillus Acidophilus (Advanced Probiotic 1250 Mg Capsule) 2 cap PO DAILY [facility] Stop: 11/28/21 08:59 Last Admin: 10/31/21 08:56 Dose: 2 cap Documented by: Levalbuterol HCl (Levalbuterol Hcl 1.25 Mg/3 Ml Neb) 1.25 mg INH Q6R [facility] Stop: 11/25/21 06:59 Last Admin: 11/01/21 07:17 Dose: 1.25 mg Documented by: Metoprolol Tartrate (Metoprolol Tartrate 50 Mg Tab) 50 mg PO BID [facility] Stop: 11/24/21 08:59 Last Admin: 10/31/21 21:13 Dose: 50 mg Documented by: Miscellaneous (Carbohydrates For Hypoglycemia ) 15 - 30 gm PO UD PRN PRN Reason: Hypoglycemia Protocol Stop: 11/23/21 00:45 Last Admin: 10/25/21 12:00 Dose: 15 gm Documented by: Pt's Own Med: (Prevymis 480mg) 1 ea PO [facility] Stop: 11/23/21 08:59 Last Admin: 10/31/21 08:56 Dose: 480 mg Documented by: Pantoprazole Sodium (Pantoprazole 40 Mg Tab) 40 mg PO DAILY@1200 [facility] Stop: 11/23/21 11:59 Last Admin: 10/31/21 12:44 Dose: 40 mg Documented by: Sennosides (Senna 8.6 Mg Tab) 17.2 mg PO [facility] Stop: 11/23/21 20:59 Last Admin: 10/31/21 21:15 Dose: Not Given Documented by: Tacrolimus (Tacrolimus 1 Mg Cap) 5 mg PO [facility] Stop: 11/23/21 20:59 Last Admin: 10/31/21 21:15 Dose: 5 mg Documented by: Tacrolimus (Tacrolimus 1 Mg Cap) 4 mg PO [facility] Stop: 11/23/21 08:59 Last Admin: 10/31/21 08:58 Dose: 4 mg Documented by: Tacrolimus (Tacrolimus 0.5 Mg Cap) [facility] Stop: 11/23/21 08:59 Last Admin: 10/31/21 08:58 Dose: 0.5 mg Documented by: Tramadol HCl (Tramadol Hcl 50 Mg Tablet) 25 - 50 mg PO Q4H PRN PRN Reason: Pain Stop: 11/23/21 00:45
[2021-11-01] MEDS: INSULIN GLARGINE SOLOSTAR 100 UNITS/ML 3 ML PEN SC SCH ×2 (09:37→22:34)
[2021-11-01] MEDS: INSULIN ASPART PER UNIT SC SCH ×4 (09:37→22:32)
[2021-11-01] MEDS: ACYCLOVIR 400 MG TAB PO SCH ×2 (09:38→22:29)
[2021-11-01] MEDS: HYDROCORTISONE 10 MG TAB PO SCH ×3 (09:38→17:49)
[2021-11-01] MEDS: ADVANCED PROBIOTIC 1250 MG CAPSULE PO SCH (09:39)
[2021-11-01] MEDS: METOPROLOL TARTRATE 50 MG TAB PO SCH ×2 (09:39→22:28)
[2021-11-01] MEDS: TACROLIMUS 1 MG CAP PO SCH ×2 (09:42→22:31)
[2021-11-01] MEDS: TACROLIMUS 0.5 MG CAP PO SCH (09:42)
[2021-11-01] MEDS ORDERED: POTASSIUM CHLORIDE CRTAB 20 MEQ TABCR PO STA (11:18)
[2021-11-01] MEDS: CITALOPRAM 20 MG TAB PO SCH (12:16)
[2021-11-01] MEDS: FUROSEMIDE 20 MG TAB PO SCH (12:16)
[2021-11-01] MEDS: SACCHAROMYCES BOULARDII 250 MG CAP PO SCH (12:16)
[2021-11-01] MEDS: PANTOprazole 40 MG TAB PO SCH (12:17)
--- NOTE | 2021-11-01 12:17 | XRay Report ---
XR chest 1V portable CLINICAL HISTORY: follow up TECHNIQUE: Single frontal radiograph of the chest was obtained. Comparison: None available at the time of this dictation. FINDINGS: No lines and tubes are seen. Calcified aortic knob is seen. Prominent cardiac silhouette is stable. I nterstitial opacities are seen. There is interval improvement of previously noted airspace opacities. No evidence of pleural effusion or pneumothorax. IMPRESSION: Stable cardiomegaly. Interstitial opacities compatible with scarring are again seen. There is interva l improvement of previously noted airspace opacities. ACT 112: Negative or not required by law. Electronically signed by: Ganesh Sheldon M.D. 11/01/2021 12:16 PM
[2021-11-01] MEDS: PREVYMIS PO SCH (14:56)
[2021-11-01] MEDS: guaiFENesin 600 MG TABCR PO SCH (16:15)
[2021-11-01] MEDS: AMOXICILLIN/CLAVULANATE 500 MG TAB PO SCH (17:49)
[2021-11-01] MEDS: NOVASOURCE RENAL 2.0 CAL 1000ML BAG GJT SCH (22:17)
[2021-11-01] MEDS: AMITRIPTYLINE HCL 50 MG TAB PO SCH (22:28)
[2021-11-01] MEDS: SENNA 8.6 MG TAB PO SCH (22:28)
[2021-11-02] MEDS: IPRATROPIUM BROMIDE NEB SOLN 0.02% 2.5 ML VIAL INH SCH ×4 (00:02→19:45)
[2021-11-02] MEDS: LEVALBUTEROL HCL 1.25 MG/3 ML NEB INH SCH ×4 (00:02→19:45)
[2021-11-02] MEDS: TACROLIMUS 0.5 MG CAP PO SCH (08:46)
[2021-11-02] MEDS: ADVANCED PROBIOTIC 1250 MG CAPSULE PO SCH (08:47)
[2021-11-02] MEDS: AMOXICILLIN/CLAVULANATE 500 MG TAB PO SCH ×2 (08:47→17:39)
[2021-11-02] MEDS: SACCHAROMYCES BOULARDII 250 MG CAP PO SCH (08:47)
[2021-11-02] MEDS: HYDROCORTISONE 10 MG TAB PO SCH ×3 (08:48→17:39)
[2021-11-02] MEDS: METOPROLOL TARTRATE 50 MG TAB PO SCH ×2 (08:48→21:16)
[2021-11-02] MEDS: guaiFENesin 600 MG TABCR PO SCH ×2 (08:48→21:01)
[2021-11-02] MEDS: ACYCLOVIR 400 MG TAB PO SCH ×2 (08:48→21:02)
[2021-11-02] MEDS: FUROSEMIDE 20 MG TAB PO SCH (08:48)
[2021-11-02 08:49] LABS: Hematocrit (blood only) 27.9 % (37-47); Hemoglobin 8.6 g/dL (12.0-16.0); Mean Corpuscular Hemoglobin 29.4 pg (25-34); Mean Corpuscular Hgb Conc 30.8 g/dL (32-36); Mean Corpuscular Volume 95.2 fL (80-100); Mean Platelet Volume 10.4 fL (7.4-10.4); Platelet Count 188 K/uL (130-400); RDW Standard Deviation 58.6 fL (36.4-46.3); Red Blood Count 2.93 M/uL (4.2-5.4); White Blood Count 7.36 K/uL (4.8-10.8)
[2021-11-02] MEDS: INSULIN GLARGINE SOLOSTAR 100 UNITS/ML 3 ML PEN SC SCH ×2 (08:49→21:22)
[2021-11-02] MEDS: PREVYMIS PO SCH (08:49)
[2021-11-02] MEDS: TACROLIMUS 1 MG CAP PO SCH ×2 (08:50→20:59)
[2021-11-02] MEDS: INSULIN ASPART PER UNIT SC SCH ×4 (08:51→21:22)
[2021-11-02 10:25] LABS: BUN Creatinine Ratio 31.6 (10-20); Creatinine Clr Calc Pharmacy 28.1 ml/min; Est GFR (African American) 34.8 ml/min; Magnesium 1.8 mg/dl (1.7-2.4); Potassium 3.8 mmol/L (3.5-5.1)
[2021-11-02] MEDS: CITALOPRAM 20 MG TAB PO SCH (12:21)
[2021-11-02] MEDS: PANTOprazole 40 MG TAB PO SCH (12:21)
--- NOTE | 2021-11-02 16:28 | Hospitalist Progress Note ---
Date of Service November 02, 2021 Assessment & Plan (1) COPD exacerbation: Plan: Acute on chronic respiratory failure with hypoxia Lung transplant status, bilateral, [facility] 2019 Present on admission with worsening SOB CXR showed Slight progression of patchy bilateral airspace opacities. Covid 19 negative Blood cx no growth Sputum cultx - ordered but uncollected (patient unable to cough up any sputum) Continued IV zosyn , stopped and transitioned to PO Augmentin (11/01), repeat CXR improved Azithromycin on hold Continue Hydrocortisone Continue Aggressive pulmonary toilet with levalbuterol/ipratropium, flutter valve, incentive spirometry, hypertonic saline Bactrim on hold in setting of ROYER, resume when able Tacrolimus level 11.8 (10/26 at 7am) My colleague, Dr. Dean, spoke to Dr. Moran from the transplant team that recommended to hold the everolimus. Ok to continue the Tacrolimus and Prevymis. He is air conditioning specialist until the weekend and can be reached (cell# [phone]). I contacted Dr. Moran on October 29, and updated him on tacrolimus level, and current creatinine, and patient's status. Recommends to continue as is for now, resume everolimus on discharge. They plan to contact the patient after her discharge from the hospital and follow-up with her. Acute on chronic CKD stage III creatinine 2.3 on admission, Creatinine 1.8 today Avoid nephrotoxic agents Continue monitor BMP Elevated trop Denies any chest pain High sensitivity trop 27.8, then 29.3 EKG showed no acute ischemic changes Hyperkalemia -resolved Potassium ~ 4 Continue monitor BMP Poor PO intake GT in place consulted dietary to determine if G tube feedings would be beneficial until pt tolerating PO intake GT flushes ordered Chronic Anemia in setting of chronic disease Anemia of acute blood loss Hgb dropped 6.6 S/P 1 unit PRBC on 10/25. No sign of active bleeding Continue to hold heparin for now Hgb 8.6, stable Continue monitor H&H DVT ppx: SCDs, Heparin on hold. if H/H stable consider to restart it BID Full code [facility] transplant team Transplant provider Dr. Moran cell # [phone] Admission and Anticipated Discharge Date Admission Date: October 23, 2021 Subjective Pt was seen in follow up of shortness of breath, likely 2/2 COPD exacerbation/pneumonia in the setting of bilateral lung transplant Pt is sitting up in bed, in no acute distress Feels improved Denies fevers chills, chest pain, abdominal pain, nausea or vomiting I contacted Dr. Moran, from her transplant team, and updated him on her current status, tacrolimus level, and creatinine. He recommends no changes at this time, they will follow-up with her after her discharge. Encouraged flutter valve and incentive spirometer, will also ordered the percussion vest, per RT. Review of Systems Review of Systems: All systems reviewed & are unremarkable except as noted in Subjective Physical Exam Physical Exam: General- No acute distress Head- atraumatic Eyes- PERRL, EOMI, ENT- oropharynx clear Neck- supple, no JVD Lungs- + diffuse coarse breath sounds Heart- RRR, no murmur Abdomen- normal bowel sounds, soft, nontender Extremities- no calf tenderness Neuro- alert, oriented x 3; PERRL, EOMI; no facial palsy; no dysarthria, moves extremities Skin- warm & dry Results & Data Results & Data ([facility]) Vital Signs (Past 12 Hours) Vital Signs Temp Pulse Pulse Resp BP Pulse Ox 11/02/21 15:58 36.7 C 85 18 131/81 98 11/02/21 14:19 84 11/02/21 12:13 78 20 95 11/02/21 11:41 36.9 C 89 18 127/79 98 11/02/21 07:55 36.7 C 111 H 16 125/75 99 11/02/21 07:10 108 H 18 98 11/02/21 06:12 109 H 11/02/21 05:00 116 H Laboratory Results 11/02/21 11/02/21 11/02/21 Range/Units 11:30 08:10 08:10 WBC 7.36 (4.8-10.8) K/uL RBC 2.93 L (4.2-5.4) M/uL Hgb 8.6 L (12.0-16.0) g/dL Hct 27.9 L (37-47) % MCV 95.2 (80-100) fL MCH 29.4 (25-34) pg MCHC 30.8 L (32-36) g/dL RDW Std Deviation 58.6 H (36.4-46.3) fL RDW Coeff of Janina 17.0 H (11.5-14.5) % Plt Count 188 (130-400) K/uL MPV 10.4 (7.4-10.4) fL Sodium 137 (136-145) mmol/L Potassium 3.8 (3.5-5.1) mmol/L Chloride 95 L (98-107) mmol/L Carbon Dioxide 38 H (21-32) mmol/L Anion Gap 4 (3-11) BUN 56 H (6-23) mg/dl Creatinine 1.77 H (0.6-1.2) mg/dl Est Cr Clr Drug Dosing 28.1 ml/min Est GFR ( Amer) 34.8 ml/min Est GFR (Non-Af Amer) 30.0 ml/min BUN/Creatinine Ratio 31.6 H (10-20) Glucose 191 H (70-99(Fasting)) mg/dl POC Glucose 93 (70-99) mg/dl Calcium 10.0 (8.5-10.1) mg/dl Magnesium 1.8 (1.7-2.4) mg/dl 11/02/21 11/01/21 11/01/21 Range/Units 07:43 20:21 16:56 WBC (4.8-10.8) K/uL RBC (4.2-5.4) M/uL Hgb (12.0-16.0) g/dL Hct (37-47) % MCV (80-100) fL MCH (25-34) pg MCHC (32-36) g/dL RDW Std Deviation (36.4-46.3) fL RDW Coeff of Janina (11.5-14.5) % Plt Count (130-400) K/uL MPV (7.4-10.4) fL Sodium (136-145) mmol/L Potassium (3.5-5.1) mmol/L Chloride (98-107) mmol/L Carbon Dioxide (21-32) mmol/L Anion Gap (3-11) BUN (6-23) mg/dl Creatinine (0.6-1.2) mg/dl Est Cr Clr Drug Dosing ml/min Est GFR ( Amer) ml/min Est GFR (Non-Af Amer) ml/min BUN/Creatinine Ratio (10-20) Glucose (70-99(Fasting)) mg/dl POC Glucose 205 H 161 H 158 H (70-99) mg/dl Calcium (8.5-10.1) mg/dl Magnesium (1.7-2.4) mg/dl Medications Administered Current Inpatient Medications Acetaminophen (Acetaminophen 325 Mg Tab) 650 mg PO Q4H PRN PRN Reason: Pain or Fever Stop: 11/23/21 00:45 Last Admin: 11/01/21 06:49 Dose: 650 mg Documented by: Acyclovir (Acyclovir 400 Mg Tab) 400 mg PO AMHS [facility] Stop: 11/23/21 08:59 Last Admin: 11/02/21 08:48 Dose: 400 mg Documented by: Amitriptyline HCl (Amitriptyline Hcl 50 Mg Tab) 50 mg PO HS [facility] Stop: 11/23/21 20:59 Last Admin: 11/01/21 22:28 Dose: 50 mg Documented by: Amoxicillin/Clavulanate Potassium (Amoxicillin/Clavulanate 500 Mg Tab) 1 tab PO BIDM [facility] Stop: 11/08/21 16:59 Last Admin: 11/02/21 08:47 Dose: 1 tab Documented by: Benzonatate (Benzonatate 100 Mg Capsule) 100 mg PO TID PRN PRN Reason: Cough Stop: 11/23/21 20:34 Last Admin: 10/24/21 20:54 Dose: 100 mg Documented by: Citalopram Hydrobromide (Citalopram 20 Mg Tab) 10 mg PO DAILY@1200 [facility] Stop: 11/23/21 11:59 Last Admin: 11/02/21 12:21 Dose: 10 mg Documented by: Dextrose (Dextrose 50% 50 Ml Syringe) 25 - 50 ml IV UD PRN; Protocol PRN Reason: Hypoglycemia Protocol Stop: 11/23/21 00:45 Enteral Nutritional Formula (Novasource Renal 2.0 Fredrick 1000ml Bag) 1,000 ml GJT DAILY@2100 [facility]; Protocol Stop: 12/01/21 21:44 Last Admin: 11/01/21 22:17 Dose: 1,000 ml Documented by: Everolimus (Pt's Own Med: Everolimus 0.5mg) 4 ea PO BID [facility] Stop: 11/23/21 10:12 Last Admin: 10/25/21 08:39 Dose: 4 ea Documented by: Furosemide (Furosemide 20 Mg Tab) 20 mg PO QAM [facility] Stop: 12/01/21 11:29 Last Admin: 11/02/21 08:48 Dose: 20 mg Documented by: Glucagon (Glucagon For Inj 1 Mg Vial) 1 mg SQ UD PRN; Protocol PRN Reason: Hypoglycemia Protocol Stop: 11/23/21 00:45 Glucose (Glucose 10 Tabs/Tube) 4 - 8 tabs PO UD PRN; Protocol PRN Reason: Hypoglycemia Protocol Stop: 11/23/21 00:45 Glucose (Glucose 40% Gel 15 Gm Tube) 15 - 30 gm PO UD PRN; Protocol PRN Reason: Hypoglycemia Protocol Stop: 11/23/21 00:45 Guaifenesin (Guaifenesin 600 Mg Tabcr) 600 mg PO Q12 [facility] Stop: 12/01/21 20:59 Last Admin: 11/02/21 08:48 Dose: 600 mg Documented by: Guaifenesin (Guaifenesin Sugar Free 200 Mg/10 Ml Udc) 200 mg PO Q6H PRN PRN Reason: Cough Stop: 12/01/21 15:06 Heparin Sodium (Porcine) (Heparin Sod 5,000 Unit/0.5 Ml Vial) 5,000 units SQ Q12 [facility] Stop: 11/30/21 20:59 Hydrocortisone (Hydrocortisone 10 Mg Tab) 20 mg PO QAM [facility] Stop: 11/23/21 08:59 Last Admin: 11/02/21 08:48 Dose: 20 mg Documented by: Hydrocortisone (Hydrocortisone 10 Mg Tab) 10 mg PO BID@1200,1630 [facility] Stop: 11/23/21 11:59 Last Admin: 11/02/21 12:21 Dose: 10 mg Documented by: Promethazine HCl 6.25 mg/ (Sodium Chloride) 50.25 mls @ 201 mls/hr IV Q6H PRN PRN Reason: Nausea And Vomiting Stop: 11/23/21 00:45 Last Infusion: 10/26/21 14:28 Dose: Infused Documented by: Insulin Aspart (Insulin Aspart Per Unit) 0 units SC ACHS [facility] Stop: 11/23/21 00:45 Last Admin: 11/02/21 12:13 Dose: Not Given Documented by: Insulin Glargine (Insulin Glargine Solostar 100 Units/Ml 3 Ml Pen) 5 units SC BID [facility] Stop: 11/23/21 08:59 Last Admin: 11/02/21 08:49 Dose: 5 units Documented by: Ipratropium Sweetser (Ipratropium Sweetser Neb Soln 0.02% 2.5 Ml Vial) 0.5 mg INH Q6R [facility] Stop: 11/23/21 00:59 Last Admin: 11/02/21 12:12 Dose: 0.5 mg Documented by: Lactobacillus Acidophilus (Advanced Probiotic 1250 Mg Capsule) 2 cap PO DAILY [facility] Stop: 11/28/21 08:59 Last Admin: 11/02/21 08:47 Dose: 2 cap Documented by: Levalbuterol HCl (Levalbuterol Hcl 1.25 Mg/3 Ml Neb) 1.25 mg INH Q6R [facility] Stop: 11/25/21 06:59 Last Admin: 11/02/21 12:12 Dose: 1.25 mg Documented by: Metoprolol Tartrate (Metoprolol Tartrate 50 Mg Tab) 50 mg PO BID [facility] Stop: 11/24/21 08:59 Last Admin: 11/02/21 08:48 Dose: 50 mg Documented by: Keltonaneous (Carbohydrates For Hypoglycemia ) 15 - 30 gm PO UD PRN PRN Reason: Hypoglycemia Protocol Stop: 11/23/21 00:45 Last Admin: 10/25/21 12:00 Dose: 15 gm Documented by: Massimo (Stop Order) 1 ea N/A DAILY@0900 [facility] Stop: 12/02/21 08:59 Last Admin: 11/02/21 08:51 Dose: 1 ea Documented by: Pt's Own Med: (Prevymis 480mg) 1 ea PO QAM [facility] Stop: 11/23/21 08:59 Last Admin: 11/02/21 08:49 Dose: 480 mg Documented by: Pantoprazole Sodium (Pantoprazole 40 Mg Tab) 40 mg PO DAILY@1200 [facility] Stop: 11/23/21 11:59 Last Admin: 11/02/21 12:21 Dose: 40 mg Documented by: Saccharomyces Boulardii (Saccharomyces Boulardii 250 Mg Cap) 250 mg PO DAILY [facility] Stop: 12/01/21 11:29 Last Admin: 11/02/21 08:47 Dose: 250 mg Documented by: Sennosides (Senna 8.6 Mg Tab) 17.2 mg PO HS [facility] Stop: 11/23/21 20:59 Last Admin: 11/01/21 22:28 Dose: 17.2 mg Documented by: Tacrolimus (Tacrolimus 1 Mg Cap) 5 mg PO HS [facility] Stop: 11/23/21 20:59 Last Admin: 11/01/21 22:31 Dose: 5 mg Documented by: Tacrolimus (Tacrolimus 1 Mg Cap) 4 mg PO QAM [facility] Stop: 11/23/21 08:59 Last Admin: 11/02/21 08:50 Dose: 4 mg Documented by: Tacrolimus (Tacrolimus 0.5 Mg Cap) 0.5 mg PO QAM [facility] Stop: 11/23/21 08:59 Last Admin: 11/02/21 08:46 Dose: 0.5 mg Documented by: Tramadol HCl (Tramadol Hcl 50 Mg Tablet) 25 - 50 mg PO Q4H PRN PRN Reason: Pain Stop: 11/23/21 00:45
[2021-11-02] MEDS: SENNA 8.6 MG TAB PO SCH (21:00)
[2021-11-02] MEDS: AMITRIPTYLINE HCL 50 MG TAB PO SCH (21:01)
[2021-11-02] MEDS: NOVASOURCE RENAL 2.0 CAL 1000ML BAG GJT SCH ×2 (21:03→22:25)
[2021-11-03] MEDS: IPRATROPIUM BROMIDE NEB SOLN 0.02% 2.5 ML VIAL INH SCH ×5 (00:08→23:57)
[2021-11-03] MEDS: LEVALBUTEROL HCL 1.25 MG/3 ML NEB INH SCH ×5 (00:08→23:56)
[2021-11-03] MEDS: AMOXICILLIN/CLAVULANATE 500 MG TAB PO SCH ×2 (07:13→15:19)
[2021-11-03] MEDS: TACROLIMUS 1 MG CAP PO SCH ×2 (07:13→20:12)
[2021-11-03] MEDS: guaiFENesin 600 MG TABCR PO SCH ×2 (07:13→20:13)
[2021-11-03] MEDS: CITALOPRAM 20 MG TAB PO SCH (07:15)
[2021-11-03] MEDS: FUROSEMIDE 20 MG TAB PO SCH (07:15)
[2021-11-03] MEDS: TACROLIMUS 0.5 MG CAP PO SCH (07:15)
[2021-11-03] MEDS: HYDROCORTISONE 10 MG TAB PO SCH ×3 (07:16→15:18)
[2021-11-03] MEDS: SACCHAROMYCES BOULARDII 250 MG CAP PO SCH (07:16)
[2021-11-03] MEDS: PANTOprazole 40 MG TAB PO SCH (07:16)
[2021-11-03] MEDS: ADVANCED PROBIOTIC 1250 MG CAPSULE PO SCH (07:16)
[2021-11-03] MEDS: METOPROLOL TARTRATE 50 MG TAB PO SCH ×2 (07:17→20:13)
[2021-11-03] MEDS: PREVYMIS PO SCH (07:18)
[2021-11-03] MEDS: ACYCLOVIR 400 MG TAB PO SCH ×2 (07:18→20:14)
[2021-11-03] MEDS: INSULIN ASPART PER UNIT SC SCH ×4 (08:26→20:19)
[2021-11-03] MEDS: INSULIN GLARGINE SOLOSTAR 100 UNITS/ML 3 ML PEN SC SCH ×2 (08:27→20:19)
[2021-11-03] MEDS: SENNA 8.6 MG TAB PO SCH ×2 (20:12→20:18)
[2021-11-03] MEDS: AMITRIPTYLINE HCL 50 MG TAB PO SCH (20:14)
[2021-11-03] MEDS: NOVASOURCE RENAL 2.0 CAL 1000ML BAG GJT SCH (20:20)
--- NOTE | 2021-11-03 23:07 | Hospitalist Progress Note ---
Date of Service November 03, 2021 Assessment & Plan (1) COPD exacerbation: Plan: Acute on chronic respiratory failure with hypoxia Lung transplant status, bilateral, [facility] 2019 Present on admission with worsening SOB CXR showed Slight progression of patchy bilateral airspace opacities. Covid 19 negative Blood cx no growth Sputum cultx - ordered but uncollected (patient unable to cough up any sputum) Continued IV zosyn , stopped and transitioned to PO Augmentin (11/01), repeat CXR improved Azithromycin on hold Continue Hydrocortisone Continue Aggressive pulmonary toilet with levalbuterol/ipratropium, flutter valve, incentive spirometry, hypertonic saline Bactrim on hold in setting of ROYER, resume when able Tacrolimus level 11.8 (10/26 at 7am) My colleague, Dr. Dean, spoke to Dr. Moran from the transplant team that recommended to hold the everolimus. Ok to continue the Tacrolimus and Prevymis. 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 Previous hospital team Dr. Cormier discuseed the case with Dr. Moran on October 29, and updated him on tacrolimus level, and current creatinine, and patient's status. Recommends to continue as is for now, resume everolimus on discharge. They plan to contact the patient after her discharge from the hospital and follow-up with her. Acute on chronic CKD stage III creatinine 2.3 on admission, Creatinine 1.8 Avoid nephrotoxic agents Continue monitor BMP Elevated trop Denies any chest pain High sensitivity trop 27.8, then 29.3 EKG showed no acute ischemic changes Hyperkalemia Potassium ~ 4 Continue monitor BMP Resolved Poor PO intake G-J tube is clogged Will consult Chronic Anemia in setting of chronic disease Anemia of acute blood loss Hgb dropped 6.6 S/P 1 unit PRBC on 10/25. No sign of active bleeding Continue to hold heparin for now Hgb 8.6, stable Continue monitor H&H DVT ppx: SCDs, Heparin on hold. if H/H stable consider to restart it BID Full code [facility] transplant team Transplant provider Dr. Moran cell # [phone] Admission and Anticipated Discharge Date Admission Date: October 23, 2021 Subjective Patient was seen and examined for follow-up of shortness of breath Lying in bed with no acute distress Received call from nursing patient G-J tube was clogged Denies any chest, palpitation, dizziness, fever. Review of Systems Review of Systems: All systems reviewed & are unremarkable except as noted in Subjective Physical Exam Physical Exam: General- No acute distress Head- atraumatic Eyes- PERRL, EOMI, ENT- oropharynx clear Neck- supple, no JVD Lungs- + coarse breath sounds with wheezing and rhonchi Heart- +tachycardia, no murmur Abdomen- normal bowel sounds, soft, nontender, G-J tube Extremities- no calf tenderness Neuro- alert, oriented x 3; PERRL, EOMI; no facial palsy; no dysarthria Skin- warm & dry Results & Data Results & Data ([facility]) Vital Signs (Past 12 Hours) Vital Signs Temp Pulse Pulse Resp BP BP Pulse Ox 11/03/21 22:13 36.7 C 83 18 134/80 100 11/03/21 19:49 36.6 C 111 H 20 136/84 99 11/03/21 19:19 100 H 18 98 11/03/21 16:58 36.8 C 100 H 20 129/81 96 11/03/21 14:55 104 H 11/03/21 13:37 114 H 16 97
[2021-11-04] MEDS: IPRATROPIUM BROMIDE NEB SOLN 0.02% 2.5 ML VIAL INH SCH ×3 (07:32→19:22)
[2021-11-04] MEDS: LEVALBUTEROL HCL 1.25 MG/3 ML NEB INH SCH ×3 (07:32→19:22)
[2021-11-04] MEDS: INSULIN ASPART PER UNIT SC SCH ×4 (08:51→21:51)
[2021-11-04] MEDS: METOPROLOL TARTRATE 50 MG TAB PO SCH ×2 (09:09→21:12)
[2021-11-04] MEDS: ACYCLOVIR 400 MG TAB PO SCH ×2 (09:09→21:10)
[2021-11-04] MEDS: guaiFENesin 600 MG TABCR PO SCH ×2 (09:09→21:12)
[2021-11-04] MEDS: TACROLIMUS 0.5 MG CAP PO SCH (09:10)
[2021-11-04] MEDS: FUROSEMIDE 20 MG TAB PO SCH (09:10)
[2021-11-04] MEDS: HYDROCORTISONE 10 MG TAB PO SCH ×3 (09:10→17:04)
[2021-11-04] MEDS: SACCHAROMYCES BOULARDII 250 MG CAP PO SCH (09:11)
[2021-11-04] MEDS: AMOXICILLIN/CLAVULANATE 500 MG TAB PO SCH ×2 (09:11→17:15)
[2021-11-04] MEDS: ADVANCED PROBIOTIC 1250 MG CAPSULE PO SCH (09:11)
[2021-11-04] MEDS: PREVYMIS PO SCH (09:12)
[2021-11-04] MEDS: TACROLIMUS 1 MG CAP PO SCH ×2 (09:14→21:13)
[2021-11-04] MEDS: INSULIN GLARGINE SOLOSTAR 100 UNITS/ML 3 ML PEN SC SCH ×2 (09:14→21:51)
[2021-11-04] MEDS: PANTOprazole 40 MG TAB PO SCH (12:22)
[2021-11-04] MEDS: CITALOPRAM 20 MG TAB PO SCH (12:22)
--- NOTE | 2021-11-04 14:56 | Gastrointestinal Consultation ---
Date of Consultation November 04, 2021 Assessment & Plan (1) Feeding difficulties: Secondary to clogging of the jejunal portion of the PJ tube. The PEG tube was inspected, appeared intact. The PEG flushes well. There is great resistance with flushing the J port. Dr. Barth slowly opened the J portion with the aid of a savory dilator wire which was slowly advanced/withdrawn each several times at the level of initial resistance. GI will sign off. Please notify us of new/worsening GI issues. Pt also encouraged to continue care with [facility] who provided the PJ tube. Supervising Physician Co-Signing Physician Notes Attending attestation I have seen, examined this patient, and agree with the findings and above by our mid-level provider RICHARD Reyes, with the following additions: Covering for [place] [facility] G/J one piece with J portion clogged, savary wire utilized at bedside without loosing visulization of end of wire to unclog the tube with combination of water flushes with success. History of Present Illness Reason for Consultation: Clogged Jejunal feeding tube Requesting Physician: Dr. Bar Attending Physician: Chaka Bar MD History of Present Illness Ms. Gurpreet Adkins is a 61 yr old female pt of Dr. Vinson with ahx of COPD post lung transplant who has followed with Jose Jaime NP for gastroparesis. She had a PEGJ tube placed at [facility] and was admitted herer on 10/23 for a COPD exacerabtion. GI is consulted for a clogged feeding tube. On exam, we were able to see that the PEG portion is open/vents and flushes well. The J tube seemed to be clogged. Allergies Allergy/AdvReac Type Severity Reaction Status Date / Time glimepiride AdvReac Severe Fainting Verified 10/23/21 20:07 Home Medications Medication Instructions Recorded Confirmed Type pantoprazole 40 mg tablet,delayed 40 mg PO DAILY@1200 01/24/20 10/23/21 History release (Protonix) sulfamethoxazole 400 1 tab PO 2XWK 09/08/20 10/23/21 History mg-trimethoprim 80 mg tablet (Bactrim) Domperidone 40 mg PO QID 10/21/20 10/23/21 History amitriptyline 50 mg tablet 50 mg PO HS 02/09/21 10/23/21 History tacrolimus 1 mg capsule, See Rx Instructions .ROUTE .COMPLEX 02/09/21 10/23/21 History immediate-release citalopram 10 mg tablet 10 mg PO .DAILY AT NOON 05/07/21 10/23/21 History everolimus (immunosuppressive) 0.5 2 mg PO AMPM 05/07/21 10/23/21 History mg tablet azithromycin 250 mg tablet 250 mg PO DAILY@1200 05/18/21 10/23/21 History hydrocortisone 10 mg tablet 10 mg PO BID 07/12/21 10/23/21 History acyclovir 400 mg tablet 400 mg PO AMHS 08/25/21 10/23/21 History hydrocortisone 10 mg tablet 20 mg PO QAM 08/25/21 10/23/21 History guaifenesin 600 mg tablet, 600 mg PO Q12H 10/23/21 10/23/21 History extended release 12 hr (Mucinex) letermovir 480 mg tablet (Prevymis) 480 mg PO QAM 10/23/21 10/23/21 History metoprolol tartrate 25 mg tablet 25 mg PO BID 10/23/21 10/23/21 History sennosides 8.6 mg tablet (senna) 17.2 mg PO HS 10/23/21 10/23/21 History Patient History Medical History ASCUS of cervix with negative high risk HPV Cholesteatoma of both middle ears Chronic mastoiditis Chronic obstructive pulmonary disease Chronic respiratory failure with hypoxia and hypercapnia Chronic tympanomastoiditis CKD (chronic kidney disease) stage 4, GFR 15-29 ml/min Encounter for mastoidectomy cavity debridement History of actinic keratosis Hypercholesterolemia Hypoxia LGSIL on Pap smear of cervix Osteoporosis Paroxysmal A-fib Postmenopausal Pulmonary emphysema Pulmonary hypertension Surgical History History of colposcopy History of ear surgery Hx of colonoscopy Hx of tonsillectomy Lung transplant status, bilateral 11/11/2019 [facility] [place] Lung transplant status, bilateral S/P cardiac cath S/P dilation and curettage S/P wisdom tooth extraction Family History Mother Adenocarcinoma of lung Osteoporosis Rheumatoid arthritis Lung cancer Myocardial infarction Aunt Breast cancer maternal aunt Grandfather (Paternal) Colorectal cancer Father Lung cancer Denies family history of Ovarian cancer Social History Smoking Status: Never smoker Tobacco Type: Cigarettes Cigarettes Per Day: 1 ppd for 23 years; Second Hand Exposure: No; Do You Dip or Chew Tobacco: No; Tobacco Cessation Education Requested by Patient: No Hx Alcohol Use: No Hx Substance Use: No Preferred Language: Egyptian Communication Ability: Effective Communication Ability Comment: Hard of hearing [employer] Combination Required: No Beliefs That Will Affect Care: None marital status: Current Living Situation: Spouse Other Information That Helps Us Care for You: Yes (Wants us to contact her transplant team in [place]) Feels Safe at Home: Yes Safety Concerns: Feels Safe At This Time Assistive Devices: Cane, Oxygen - Continuous and Walker Review of Systems Review of Systems: ROS: Gen: Denies weakness, fevers, weight loss Eyes: No eye redness, or pain, no recent vision changes Resp: Chronic SOB and admitted with worsened SOB Cardio: No palpitations/irregular beats, no chest pain GI: No abdominal pain, no nausea/vomiting : Denies pain on urination Skin: No jaundice, itching or new rashes Physical Exam Constitutional: well developed, + thin and cooperative Eyes: PERRL, conjunctivae normal, anicteric sclerae ENMT: external ear and nose normal, oropharynx normal Neck: Trach tube scar Respiratory: normal respiratory effort and able to speak in complete sentences; no respiratory distress, no labored breathing, does not use accessory muscles and no cough Cardiovascular: RRR, no murmur, no edema Gastrointestinal (Abdomen): normal bowel sounds, soft, nontender, no hepatosplenomegaly GJ tube in place w/o any surrounding redness, no leaking or discharge. Skin: no rashes, warm and dry normal turgor Neurologic: PERRL, EOMI, accommodation nl, no face palsy, no dysarthria awake; not confused Psychiatric: A+Ox3, euthymic affect Orientation: alert, oriented x 3 and cooperative Results & Data ([facility]) Vital Signs (Past 12 Hours) Vital Signs Temp Pulse Pulse Resp BP Pulse Ox 11/04/21 13:36 88 18 97 11/04/21 12:00 37.2 C 123 H 18 134/83 92 11/04/21 10:12 110 H 11/04/21 07:32 115 H 18 99 11/04/21 06:43 36.6 C 111 H 20 147/94 H 99 Laboratory Results BS 110
[2021-11-04] MEDS: AMITRIPTYLINE HCL 50 MG TAB PO SCH (21:11)
[2021-11-04] MEDS: SENNA 8.6 MG TAB PO SCH (21:14)
--- NOTE | 2021-11-04 22:11 | Hospitalist Progress Note ---
Date of Service November 04, 2021 Assessment & Plan (1) COPD exacerbation: Plan: Acute on chronic respiratory failure with hypoxia Lung transplant status, bilateral, [facility] 2019 Present on admission with worsening SOB CXR showed Slight progression of patchy bilateral airspace opacities. Covid 19 negative Blood cx no growth Sputum cultx - ordered but uncollected (patient unable to cough up any sputum) Continued IV zosyn , stopped and transitioned to PO Augmentin (11/01), repeat CXR improved Azithromycin on hold Continue Hydrocortisone Continue Aggressive pulmonary toilet with levalbuterol/ipratropium, flutter valve, incentive spirometry, hypertonic saline Bactrim on hold in setting of ROYER, resume when able Tacrolimus level 11.8 (10/26 at 7am) My colleague, Dr. Dean, spoke to Dr. Moran from the transplant team that recommended to hold the everolimus. Ok to continue the Tacrolimus and Prevymis. 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 Previous hospital team Dr. Cormier discuseed the case with Dr. Moran on October 29, and updated him on tacrolimus level, and current creatinine, and patient's status. Recommends to continue as is for now, resume everolimus on discharge. They plan to contact the patient after her discharge from the hospital and follow-up with her. Acute on chronic CKD stage III creatinine 2.3 on admission, Creatinine 1.8 Avoid nephrotoxic agents Continue monitor BMP Elevated trop Denies any chest pain High sensitivity trop 27.8, then 29.3 EKG showed no acute ischemic changes Hyperkalemia Potassium ~ 4 Continue monitor BMP Resolved Poor PO intake G-J tube is clogged GI was consulted and successfully unclogged the J port Chronic Anemia in setting of chronic disease Anemia of acute blood loss Hgb dropped 6.6 S/P 1 unit PRBC on 10/25. No sign of active bleeding Continue to hold heparin for now Hgb 8.6, stable Continue monitor H&H DVT ppx: SCDs, Heparin on hold. if H/H stable consider to restart it BID Full code [facility] transplant team Transplant provider Dr. Moran cell # [phone] Admission and Anticipated Discharge Date Admission Date: October 23, 2021 Subjective Patient was seen and examined for follow-up of shortness of breath Lying in bed with no acute distress Denies any chest, palpitation, dizziness, fever. Review of Systems Review of Systems: All systems reviewed & are unremarkable except as noted in Subjective Physical Exam Physical Exam: General- No acute distress Head- atraumatic Eyes- PERRL, EOMI, ENT- oropharynx clear Neck- supple, no JVD Lungs- + coarse breath sounds with wheezing and rhonchi Heart- +tachycardia, no murmur Abdomen- normal bowel sounds, soft, nontender, G-J tube Extremities- no calf tenderness Neuro- alert, oriented x 3; PERRL, EOMI; no facial palsy; no dysarthria Skin- warm & dry Results & Data Results & Data ([facility]) Vital Signs (Past 12 Hours) Vital Signs Temp Pulse Pulse Resp BP BP Pulse Ox 11/04/21 19:23 82 18 97 11/04/21 19:00 37.5 C 86 20 125/72 96 11/04/21 16:00 37.2 C 93 H 20 126/83 97 11/04/21 13:36 88 18 97 11/04/21 12:00 37.2 C 123 H 18 134/83 92 11/04/21 10:12 110 H
[2021-11-04] MEDS: NOVASOURCE RENAL 2.0 CAL 1000ML BAG GJT SCH (22:20)
[2021-11-05] MEDS: LEVALBUTEROL HCL 1.25 MG/3 ML NEB INH SCH ×4 (00:16→19:45)
[2021-11-05] MEDS: IPRATROPIUM BROMIDE NEB SOLN 0.02% 2.5 ML VIAL INH SCH ×4 (00:16→19:45)
[2021-11-05] MEDS ORDERED: POTASSIUM CHLORIDE CRTAB 20 MEQ TABCR PO STA (06:00)
[2021-11-05] MEDS ORDERED: MAGNESIUM SULFATE / D5W 1 GM/100 ML BAG IV ONE (06:00)
[2021-11-05] MEDS: METOPROLOL TARTRATE 50 MG TAB PO SCH ×2 (06:31→21:44)
[2021-11-05 06:40] LABS: Basophils # (auto) 0.02 K/uL (0-0.2); Basophils % (auto) 0.3 %; Eosinophils # (auto) 0.34 K/uL (0-0.5); Eosinophils % (auto) 5.4 %; Hematocrit (blood only) 29.3 % (37-47); Hemoglobin 9.1 g/dL (12.0-16.0); Immature Granulocytes # (auto) 0.08 K/uL (0.00-0.02); Immature Granulocytes % (auto) 1.3 %; Lymphocytes # (auto) 0.42 K/uL (1.2-3.4); Lymphocytes % (auto) 6.6 %; Mean Corpuscular Hemoglobin 29.4 pg (25-34); Mean Corpuscular Hgb Conc 31.1 g/dL (32-36); Mean Corpuscular Volume 94.8 fL (80-100); Mean Platelet Volume 10.4 fL (7.4-10.4); Monocytes # (auto) 0.59 K/uL (0.11-0.59); Monocytes % (auto) 9.3 %; Neutrophils # (auto) 4.88 K/uL (1.4-6.5); Neutrophils % (auto) 77.1 %; Platelet Count 184 K/uL (130-400); RDW Coefficient of Variation 18.7 % (11.5-14.5); Red Blood Count 3.09 M/uL (4.2-5.4); White Blood Count 6.33 K/uL (4.8-10.8)
[2021-11-05 07:10] LABS: BUN Creatinine Ratio 33.5 (10-20); Calcium 9.9 mg/dl (8.5-10.1); Creatinine Clr Calc Pharmacy 27.4 ml/min; Est GFR (African American) 34.3 ml/min; Est GFR (Non-African American) 29.6 ml/min; Magnesium 1.8 mg/dl (1.7-2.4)
[2021-11-05] MEDS: guaiFENesin 600 MG TABCR PO SCH ×2 (08:45→21:40)
[2021-11-05] MEDS: TACROLIMUS 0.5 MG CAP PO SCH (08:45)
[2021-11-05] MEDS: HYDROCORTISONE 10 MG TAB PO SCH ×3 (08:45→17:30)
[2021-11-05] MEDS: SACCHAROMYCES BOULARDII 250 MG CAP PO SCH (08:45)
[2021-11-05] MEDS: ADVANCED PROBIOTIC 1250 MG CAPSULE PO SCH (08:45)
[2021-11-05] MEDS: FUROSEMIDE 20 MG TAB PO SCH (08:45)
[2021-11-05] MEDS: ACYCLOVIR 400 MG TAB PO SCH ×2 (08:45→21:39)
[2021-11-05] MEDS: TACROLIMUS 1 MG CAP PO SCH ×2 (08:46→21:43)
[2021-11-05] MEDS: AMOXICILLIN/CLAVULANATE 500 MG TAB PO SCH ×2 (08:46→17:29)
[2021-11-05] MEDS: PREVYMIS PO SCH (08:46)
[2021-11-05] MEDS: INSULIN ASPART PER UNIT SC SCH ×4 (08:49→21:37)
[2021-11-05] MEDS: INSULIN GLARGINE SOLOSTAR 100 UNITS/ML 3 ML PEN SC SCH ×2 (08:49→21:37)
[2021-11-05] MEDS: CITALOPRAM 20 MG TAB PO SCH (11:41)
[2021-11-05] MEDS: PANTOprazole 40 MG TAB PO SCH (11:43)
[2021-11-05] MEDS: NOVASOURCE RENAL 2.0 CAL 1000ML BAG GJT SCH (21:01)
[2021-11-05] MEDS: AMITRIPTYLINE HCL 50 MG TAB PO SCH (21:41)
[2021-11-05] MEDS: SENNA 8.6 MG TAB PO SCH (21:42)
--- NOTE | 2021-11-05 23:56 | Hospitalist Progress Note ---
Date of Service November 05, 2021 Assessment & Plan (1) COPD exacerbation: Plan: Acute on chronic respiratory failure with hypoxia Lung transplant status, bilateral, [facility] 2019 Present on admission with worsening SOB CXR showed Slight progression of patchy bilateral airspace opacities. Covid 19 negative Blood cx no growth Sputum cultx - ordered but uncollected (patient unable to cough up any sputum) Continued IV zosyn , stopped and transitioned to PO Augmentin (11/01), repeat CXR improved Azithromycin on hold Continue Hydrocortisone Continue Aggressive pulmonary toilet with levalbuterol/ipratropium, flutter valve, incentive spirometry, hypertonic saline Bactrim on hold in setting of ROYER, resume when able Tacrolimus level 11.8 (10/26 at 7am) My colleague, Dr. Dean, spoke to Dr. Moran from the transplant team that recommended to hold the everolimus. Ok to continue the Tacrolimus and Prevymis. He is emergency communications operator until the weekend and can be reached (cell# [phone]). Previous hospital team Dr. Cormier discuseed the case with Dr. Moran on October 29, and updated him on tacrolimus level, and current creatinine, and patient's status. Recommends to continue as is for now, resume everolimus on discharge. They plan to contact the patient after her discharge from the hospital and follow-up with her. Acute on chronic CKD stage III creatinine 2.3 on admission, Creatinine 1.7 Avoid nephrotoxic agents Continue monitor BMP Elevated trop Denies any chest pain High sensitivity trop 27.8, then 29.3 EKG showed no acute ischemic changes Hyperkalemia Potassium ~ 4 Continue monitor BMP Resolved Poor PO intake G-J tube is clogged GI was consulted and successfully unclogged the J port Chronic Anemia in setting of chronic disease Anemia of acute blood loss Hgb dropped 6.6 S/P 1 unit PRBC on 10/25. No sign of active bleeding Continue to hold heparin for now Hgb 9.1, stable Continue monitor H&H DVT ppx: SCDs, Heparin on hold. if H/H stable consider to restart it BID Full code [facility] transplant team Transplant provider Dr. Moran cell # [phone] Admission and Anticipated Discharge Date Admission Date: October 23, 2021 Subjective Patient was seen and examined for follow-up of shortness of breath Lying in bed with no acute distress GI was able to unclogged the J tube Later i went to her room to update at bedside and answered all his questions Denies any chest, palpitation, dizziness, fever. Review of Systems Review of Systems: All systems reviewed & are unremarkable except as noted in Subjective Physical Exam Physical Exam: General- No acute distress Head- atraumatic Eyes- PERRL, EOMI, ENT- oropharynx clear Neck- supple, no JVD Lungs- + coarse breath sounds with wheezing and rhonchi Heart- +tachycardia, no murmur Abdomen- normal bowel sounds, soft, nontender, G-J tube Extremities- no calf tenderness Neuro- alert, oriented x 3; PERRL, EOMI; no facial palsy; no dysarthria Skin- warm & dry Results & Data Results & Data ([facility]) Vital Signs (Past 12 Hours) Vital Signs Temp Pulse Pulse Resp BP BP Pulse Ox 11/05/21 22:36 36.9 C 119 H 18 147/83 H 99 11/05/21 21:34 116 H 131/81 11/05/21 19:45 113 H 20 99 11/05/21 19:22 37 C 115 H 18 133/82 99 11/05/21 15:00 118 H 11/05/21 14:42 37.3 C 89 20 95/54 L 94 11/05/21 12:58 88 18 98
[2021-11-06] MEDS: IPRATROPIUM BROMIDE NEB SOLN 0.02% 2.5 ML VIAL INH SCH ×4 (00:32→20:05)
[2021-11-06] MEDS: LEVALBUTEROL HCL 1.25 MG/3 ML NEB INH SCH ×4 (00:32→20:05)
[2021-11-06] MEDS ORDERED: MAGNESIUM SULFATE / D5W 1 GM/100 ML BAG IV ONE (02:07)
[2021-11-06] MEDS ORDERED: ALBUMIN 25% 12.5 GM/50 ML VIAL IV ONE (02:07)
[2021-11-06] MEDS: METOPROLOL TARTRATE 50 MG TAB PO SCH ×2 (02:19→21:20)
[2021-11-06] MEDS: TACROLIMUS 1 MG CAP PO SCH ×2 (08:43→21:21)
[2021-11-06] MEDS: TACROLIMUS 0.5 MG CAP PO SCH (08:44)
[2021-11-06] MEDS: guaiFENesin 600 MG TABCR PO SCH ×2 (08:44→21:19)
[2021-11-06] MEDS: HYDROCORTISONE 10 MG TAB PO SCH ×3 (08:45→16:45)
[2021-11-06] MEDS: FUROSEMIDE 20 MG TAB PO SCH (08:45)
[2021-11-06] MEDS: AMOXICILLIN/CLAVULANATE 500 MG TAB PO SCH ×2 (08:46→16:45)
[2021-11-06] MEDS: ACYCLOVIR 400 MG TAB PO SCH ×2 (08:47→21:19)
[2021-11-06] MEDS: SACCHAROMYCES BOULARDII 250 MG CAP PO SCH (08:48)
[2021-11-06] MEDS: ADVANCED PROBIOTIC 1250 MG CAPSULE PO SCH (08:48)
[2021-11-06] MEDS: PREVYMIS PO SCH (08:48)
[2021-11-06] MEDS: INSULIN GLARGINE SOLOSTAR 100 UNITS/ML 3 ML PEN SC SCH ×2 (08:51→22:54)
[2021-11-06] MEDS: INSULIN ASPART PER UNIT SC SCH ×4 (08:55→22:54)
[2021-11-06] MEDS ORDERED: XOPENEX/ATROVENT 0.63mg/0.5MG NEB COMBO NEB ONE (09:20)
[2021-11-06] MEDS: ACETAMINOPHEN 325 MG TAB PO PRN (09:25)
[2021-11-06] MEDS ORDERED: IPRATROPIUM BROMIDE NEB SOLN 0.02% 2.5 ML VIAL INH ONE ×2 (09:45)
[2021-11-06] MEDS ORDERED: LEVALBUTEROL 1.25MG/0.5ML NEB INH ONE (09:45)
[2021-11-06] MEDS ORDERED: LEVALBUTEROL HCL 0.63 MG/3 ML NEB INH ONE (09:45)
--- NOTE | 2021-11-06 09:58 | XRay Report ---
XR chest 1V portable HISTORY: 61 years-old Female sob acute shortness of breath COMPARISON: 11/01/2021, chest CT 08/25/2021. TECHNIQUE: Portable AP view of the chest FINDINGS: Cardiac silhouette is enlarged. Pneumomediastinum stent with numerous surgical clips redemonstrated. Surgical suture material of the lateral left lung base. Unchanged pleural thickening of the lung apic es. Trace pleural effusions. Persistent multifocal reticular nodular opacities. Bones appear grossly intact. IMPRESSION: 1. Cardiomegaly with trace pleural effusions. 2. Chronic reticular nodular opacities are compatible with an infectious or inflammatory pneumonitis such as atypical mycobacterium. ACT 112: Negative or not required by law. The above report was generated using voice recognition software. It may contain grammatical, syntax o r spelling errors. Electronically signed by: Andrés Hood M.D. 11/06/2021 9:56 AM
[2021-11-06] MEDS: CITALOPRAM 20 MG TAB PO SCH (12:25)
[2021-11-06] MEDS: PANTOprazole 40 MG TAB PO SCH (12:25)
[2021-11-06] MEDS: guaiFENesin SUGAR FREE 200 MG/10 ML UDC PO PRN (16:45)
--- NOTE | 2021-11-06 19:16 | Hospitalist Progress Note ---
Date of Service November 06, 2021 Assessment & Plan (1) COPD exacerbation: Plan: Acute on chronic respiratory failure with hypoxia Lung transplant status, bilateral, [facility] 2019 Present on admission with worsening SOB CXR showed Slight progression of patchy bilateral airspace opacities. Covid 19 negative Blood cx no growth Sputum cultx - ordered but uncollected (patient unable to cough up any sputum) Continued IV zosyn , stopped and transitioned to PO Augmentin (11/01), repeat CXR improved Azithromycin on hold Continue Hydrocortisone Continue Aggressive pulmonary toilet with levalbuterol/ipratropium, flutter valve, incentive spirometry, hypertonic saline Bactrim on hold in setting of ROYER, resume when able Tacrolimus level 11.8 (10/26 at 7am) My colleague, Dr. Dean, spoke to Dr. Moran from the transplant team that recommended to hold the everolimus. Ok to continue the Tacrolimus and Prevymis. He is long term care administrator until the weekend and can be reached (cell# [phone]). Previous hospital team Dr. Cormier discuseed the case with Dr. Moran on October 29, and updated him on tacrolimus level, and current creatinine, and patient's status. Recommends to continue as is for now, resume everolimus on discharge. They plan to contact the patient after her discharge from the hospital and follow-up with her. repeat CXR showed chronic reticular nodular opacities are compatible with an infectious or inflammatory pneumonitis such as atypical mycobacterium. Will consult pulm since breathing has not been improved before planning to discharge Tachycardia Metoprolol increased to 50mg BID Acute on chronic CKD stage III creatinine 2.3 on admission, Creatinine 1.7 Avoid nephrotoxic agents Continue monitor BMP Elevated trop Denies any chest pain High sensitivity trop 27.8, then 29.3 EKG showed no acute ischemic changes Hyperkalemia Potassium ~ 4 Continue monitor BMP Resolved Poor PO intake G-J tube is clogged GI was consulted and successfully unclogged the J port Chronic Anemia in setting of chronic disease Anemia of acute blood loss Hgb dropped 6.6 S/P 1 unit PRBC on 10/25. No sign of active bleeding Continue to hold heparin for now Hgb 9.1, stable Continue monitor H&H DVT ppx: SCDs, Heparin on hold. if H/H stable consider to restart it BID Full code [facility] transplant team Transplant provider Dr. Moran cell # [phone] Admission and Anticipated Discharge Date Admission Date: October 23, 2021 Subjective Patient was seen and examined for follow-up of shortness of breath Lying in bed with no acute distress Pt had a coughing spell and vomited this morning Her breathing seems to worsening after the vomiting Denies any chest, palpitation, dizziness, fever. Review of Systems Review of Systems: All systems reviewed & are unremarkable except as noted in Subjective Physical Exam Physical Exam: General- No acute distress Head- atraumatic Eyes- PERRL, EOMI, ENT- oropharynx clear Neck- supple, no JVD Lungs- + coarse breath sounds with wheezing and rhonchi Heart- +tachycardia, no murmur Abdomen- normal bowel sounds, soft, nontender, G-J tube Extremities- no calf tenderness Neuro- alert, oriented x 3; PERRL, EOMI; no facial palsy; no dysarthria Skin- warm & dry Results & Data Results & Data ([facility]) Vital Signs (Past 12 Hours) Vital Signs Temp Pulse Pulse Resp BP Pulse Ox 11/06/21 16:36 112 H 11/06/21 15:28 36.6 C 116 H 20 138/89 100 11/06/21 12:56 111 H 11/06/21 11:53 36.9 C 114 H 22 127/78 98 11/06/21 10:13 117 H 20 99 11/06/21 09:21 107 H 22 98
[2021-11-06] MEDS: AMITRIPTYLINE HCL 50 MG TAB PO SCH (21:19)
[2021-11-06] MEDS: NOVASOURCE RENAL 2.0 CAL 1000ML BAG GJT SCH (21:20)
[2021-11-06] MEDS: SENNA 8.6 MG TAB PO SCH (21:21)
[2021-11-07] MEDS: LEVALBUTEROL HCL 1.25 MG/3 ML NEB INH SCH ×4 (00:44→20:13)
[2021-11-07] MEDS: IPRATROPIUM BROMIDE NEB SOLN 0.02% 2.5 ML VIAL INH SCH ×4 (00:44→20:13)
[2021-11-07 07:22] LABS: Hematocrit (blood only) 27.9 % (37-47); Hemoglobin 8.3 g/dL (12.0-16.0); Mean Corpuscular Hgb Conc 29.7 g/dL (32-36); Mean Corpuscular Volume 97.6 fL (80-100); Mean Platelet Volume 10.1 fL (7.4-10.4); Platelet Count 161 K/uL (130-400); RDW Coefficient of Variation 19.3 % (11.5-14.5); RDW Standard Deviation 68.8 fL (36.4-46.3); Red Blood Count 2.86 M/uL (4.2-5.4); White Blood Count 5.51 K/uL (4.8-10.8)
[2021-11-07 07:37] LABS: BUN Creatinine Ratio 41.6 (10-20); Calcium 10.8 mg/dl (8.5-10.1); Creatinine Clr Calc Pharmacy 27.8 ml/min; Est GFR (African American) 35.8 ml/min; Est GFR (Non-African American) 30.9 ml/min; Magnesium 2.3 mg/dl (1.7-2.4); Potassium 4.7 mmol/L (3.5-5.1)
--- NOTE | 2021-11-07 08:56 | Pulmonary Consultation ---
Date of Consultation November 07, 2021 Assessment & Plan (1) Chronic respiratory failure with hypoxia: (2) Bronchiectasis: (3) Chronic cough: (4) Pulmonary hypertension: CT chest 08/25/2021 personally reviewed: Tree-in-bud opacities again appreciated bilaterally, bilateral bronchiectasis especially in the middle and lower lobes The treatment opacities as well as bronchiectasis seem to be getting worse compared to 07/12/[address] No mediastinal lymphadenopathy Chest x-ray 11/06/2021 personally reviewed: Portable film, good inspiratory effort, left costophrenic angle and cardiophrenic angles are blunted, retrocardiac opacity cannot be ruled out Minimal alveolar opacities bilaterally, there is no change from previous chest x-rays --Chronic hypoxic respiratory failure Chest x-ray did not show significant change compared to July 2021 and October 2020 Nasal MRSA negative COVID-19 PCR negative Procalcitonin 0.44 Patient unable to produce sputum --Bronchiectasis 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 Continue with hypertonic saline nebulized, flutter valve, chest vest therapy. I will increase the guaifenesin to 1200 mg twice daily Nausea with the patient has early in the morning could be related to gastroparesis and/or medication. Will defer the management to primary care No further recommendation from pulmonary perspective. Please call directly with any questions Case was discussed with Dr. Bar I was able to speak with patient's as well. Patient is not compliant with chest vest at home. Encouraged to be very compliant with chest vest and nebulized hypertonic saline at home Please note the above document was generated using voice recognition software. It may contain grammatical, syntax or spelling errors.Any formal questions or concerns about the content, text or information contained within the body of this dictation should be directly addressed to the provider for clarification. History of Present Illness Attending Physician: Chaka Bar MD History of Present Illness 61-year-old female coming to the hospital for shortness of breath and cough Patient is on 2 and half liters L oxygen at home. 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 fib, CKD At the time of examination patient was saturating 95 to 96% on 4 L nasal cannula, I went down to 3 L Patient says she is doing okay when it comes to her breathing She still complaining of cough but she is not able to bring much up. She has been using flutter valve nebulized hypertonic saline as well as guaifenesin Denies any hemoptysis No fever or chills No headache. As per the nurse was also in the room patient has been throwing up. When she has bouts of cough early in the morning sometimes she ends up vomiting as well. During this time she gets hypoxic which is expectable No dysuria, no diarrhea. No hematuria, no hematochezia. Patient stated she has been compliant with her transplant immunosuppressive medication Social history: 20-cguw-lfwd smoking history, quit approximately 12 years ago. Did not smoke after transplant as well Allergies Allergy/AdvReac Type Severity Reaction Status Date / Time glimepiride AdvReac Severe Fainting Verified 10/23/21 20:07 Home Medications Medication Instructions Recorded Confirmed Type pantoprazole 40 mg tablet,delayed 40 mg PO DAILY@1200 01/24/20 10/23/21 History release (Protonix) sulfamethoxazole 400 1 tab PO 2XWK 09/08/20 10/23/21 History mg-trimethoprim 80 mg tablet (Bactrim) Domperidone 40 mg PO QID 10/21/20 10/23/21 History amitriptyline 50 mg tablet 50 mg PO HS 02/09/21 10/23/21 History tacrolimus 1 mg capsule, See Rx Instructions .ROUTE .COMPLEX 02/09/21 10/23/21 History immediate-release citalopram 10 mg tablet 10 mg PO .DAILY AT NOON 05/07/21 10/23/21 History everolimus (immunosuppressive) 0.5 2 mg PO AMPM 05/07/21 10/23/21 History mg tablet azithromycin 250 mg tablet 250 mg PO DAILY@1200 05/18/21 10/23/21 History hydrocortisone 10 mg tablet 10 mg PO BID 07/12/21 10/23/21 History acyclovir 400 mg tablet 400 mg PO AMHS 08/25/21 10/23/21 History hydrocortisone 10 mg tablet 20 mg PO QAM 08/25/21 10/23/21 History guaifenesin 600 mg tablet, 600 mg PO Q12H 10/23/21 10/23/21 History extended release 12 hr (Mucinex) letermovir 480 mg tablet (Prevymis) 480 mg PO QAM 10/23/21 10/23/21 History metoprolol tartrate 25 mg tablet 25 mg PO BID 10/23/21 10/23/21 History sennosides 8.6 mg tablet (senna) 17.2 mg PO HS 10/23/21 10/23/21 History Patient History Medical History ASCUS of cervix with negative high risk HPV Cholesteatoma of both middle ears Chronic mastoiditis Chronic obstructive pulmonary disease Chronic respiratory failure with hypoxia and hypercapnia Chronic tympanomastoiditis CKD (chronic kidney disease) stage 4, GFR 15-29 ml/min Encounter for mastoidectomy cavity debridement History of actinic keratosis Hypercholesterolemia Hypoxia LGSIL on Pap smear of cervix Osteoporosis Paroxysmal A-fib Postmenopausal Pulmonary emphysema Pulmonary hypertension Surgical History History of colposcopy History of ear surgery Hx of colonoscopy Hx of tonsillectomy Lung transplant status, bilateral 11/11/2019 [facility] [place] Lung transplant status, bilateral S/P cardiac cath S/P dilation and curettage S/P wisdom tooth extraction Family History Mother Adenocarcinoma of lung Osteoporosis Rheumatoid arthritis Lung cancer Myocardial infarction Aunt Breast cancer maternal aunt Grandfather (Paternal) Colorectal cancer Father Lung cancer Denies family history of Ovarian cancer Social History Smoking Status: Never smoker Tobacco Type: Cigarettes Cigarettes Per Day: 1 ppd for 23 years; Second Hand Exposure: No; Do You Dip or Chew Tobacco: No; Tobacco Cessation Education Requested by Patient: No Hx Alcohol Use: No Hx Substance Use: No Preferred Language: Moroccan Communication Ability: Effective Communication Ability Comment: Hard of hearing Surgical Pathologist Required: No Beliefs That Will Affect Care: None marital status: Current Living Situation: Spouse Other Information That Helps Us Care for You: Yes (Wants us to contact her transplant team in [place]) Feels Safe at Home: Yes Safety Concerns: Feels Safe At This Time Assistive Devices: Cane, Oxygen - Continuous and Walker Review of Systems Review of Systems: All systems reviewed & are unremarkable except as noted in HPI & below Physical Exam Physical Exam: Constitutional: No acute distress HEENT: EOMI, PERRLA Respiratory system: Decreased air entry bilaterally, mild expiratory wheeze chest positive rhonchi bilaterally positive crackles bilaterally CVS: S1-S2 positive, no murmurs or gallops Abdomen: Soft, nontender, nondistended, positive bowel sounds x4, positive PEG Extremities: +2 pulses bilaterally radialis/ dorsalis pedis, no cyanosis, no edema Neuro: Awake alert oriented x3 Psych: Normal mood and affect G/U: No Briggs Skin: no rashes, warm and dry Lymphatic: no cervical or axillary lymphadenopathy Results & Data Results & Data ([facility]) Vital Signs (Past 12 Hours) Vital Signs Temp Pulse Pulse Resp BP BP Pulse Ox 11/07/21 07:25 118 H 22 98 11/07/21 07:16 116 H 11/07/21 07:10 36.8 C 118 H 20 137/80 99 11/07/21 03:18 36.6 C 118 H 18 138/77 98 11/06/21 23:31 125 H 11/06/21 23:09 36.5 C 119 H 22 130/72 94 Laboratory Results 11/07/21 06:33 11/07/21 06:33 PG Care Time/CCT Total # of Minutes Spent Total Time Spent with Patient: Total time spent is greater than 50% in coordination of care (as documented) at patient's floor/unit and/or counseling patient: Coding Level of Care Code 72988 Initial Inpt Care Lvl 3 Diagnoses Chronic respiratory failure with hypoxia J96.11 Bronchiectasis J47.9 Chronic cough R05.3 Pulmonary hypertension I27.20
[2021-11-07] MEDS: FUROSEMIDE 20 MG TAB PO SCH (09:00)
[2021-11-07] MEDS: TACROLIMUS 0.5 MG CAP PO SCH (09:00)
[2021-11-07] MEDS: SACCHAROMYCES BOULARDII 250 MG CAP PO SCH (09:01)
[2021-11-07] MEDS: ADVANCED PROBIOTIC 1250 MG CAPSULE PO SCH (09:01)
[2021-11-07] MEDS: HYDROCORTISONE 10 MG TAB PO SCH ×3 (09:01→16:34)
[2021-11-07] MEDS: TACROLIMUS 1 MG CAP PO SCH ×2 (09:01→21:21)
[2021-11-07] MEDS: METOPROLOL TARTRATE 50 MG TAB PO SCH ×2 (09:01→21:21)
[2021-11-07] MEDS: guaiFENesin 600 MG TABCR PO SCH ×2 (09:02→21:19)
[2021-11-07] MEDS: INSULIN ASPART PER UNIT SC SCH ×4 (09:02→21:19)
[2021-11-07] MEDS: AMOXICILLIN/CLAVULANATE 500 MG TAB PO SCH ×2 (09:02→16:34)
[2021-11-07] MEDS: PREVYMIS PO SCH (09:02)
[2021-11-07] MEDS: ACYCLOVIR 400 MG TAB PO SCH ×2 (09:02→21:19)
[2021-11-07] MEDS: INSULIN GLARGINE SOLOSTAR 100 UNITS/ML 3 ML PEN SC SCH ×2 (09:06→21:20)
[2021-11-07] MEDS ORDERED: SODIUM CHLOR 7% 4 ML NEB NEB ONE (09:45)
[2021-11-07] MEDS: CITALOPRAM 20 MG TAB PO SCH (12:13)
[2021-11-07] MEDS: PANTOprazole 40 MG TAB PO SCH (12:13)
[2021-11-07] MEDS: guaiFENesin SUGAR FREE 200 MG/10 ML UDC PO PRN (12:15)
[2021-11-07] MEDS: SODIUM CHLOR 7% 4 ML NEB NEB SCH (20:13)
--- NOTE | 2021-11-07 20:16 | Hospitalist Progress Note ---
Date of Service November 07, 2021 Assessment & Plan (1) COPD exacerbation: Plan: Acute on chronic respiratory failure with hypoxia Lung transplant status, bilateral, [facility] 2019 Present on admission with worsening SOB CXR showed Slight progression of patchy bilateral airspace opacities. Covid 19 negative Blood cx no growth Sputum cultx - ordered but uncollected (patient unable to cough up any sputum) Continued IV zosyn , stopped and transitioned to PO Augmentin (11/01), repeat CXR improved Azithromycin on hold Continue Hydrocortisone Continue Aggressive pulmonary toilet with levalbuterol/ipratropium, flutter valve, incentive spirometry, hypertonic saline Bactrim on hold in setting of ROYER, resume when able Tacrolimus level 11.8 (10/26 at 7am) My colleague, Dr. Dean, spoke to Dr. Moran from the transplant team that recommended to hold the everolimus. Ok to continue the Tacrolimus and Prevymis. He is transportation engineering technician until the weekend and can be reached (cell# [phone]). Previous hospital team Dr. Cormier discuseed the case with Dr. Moran on October 29, and updated him on tacrolimus level, and current creatinine, and patient's status. Recommends to continue as is for now, resume everolimus on discharge. They plan to contact the patient after her discharge from the hospital and follow-up with her. repeat CXR showed chronic reticular nodular opacities are compatible with an infectious or inflammatory pneumonitis such as atypical mycobacterium. Pulm consulted Case discussed with pulm that recommended to continue with hypertonic saline nebulized, flutter valve, chest vest therapy. Guaifenesin increased to 1200 mg twice daily No further work up as per pulm Tachycardia Continue Metoprolol 50mg BID HR improved Acute on chronic CKD stage III creatinine 2.3 on admission, Creatinine 1.7 Avoid nephrotoxic agents Continue monitor BMP Elevated trop Denies any chest pain High sensitivity trop 27.8, then 29.3 EKG showed no acute ischemic changes Hyperkalemia Potassium ~ 4 Continue monitor BMP Resolved Poor PO intake G-J tube is clogged GI was consulted and successfully unclogged the J port Vomiting Possible related to tube feeding/medication. Pt said that she does her tube feeding from 7pm to 7am and wait a few hours before to take her pills We spoke to pharmacy to turn off the tube feeding at 7am Continue Zofran prn Chronic Anemia in setting of chronic disease Anemia of acute blood loss Hgb dropped 6.6 S/P 1 unit PRBC on No sign of active bleeding Continue to hold heparin for now Hgb 8.3 today Continue monitor H&H DVT ppx: SCDs, Heparin on hold. if H/H stable consider to restart it BID Full code [facility] transplant team Transplant provider Dr. Moran cell # [phone] Admission and Anticipated Discharge Date Admission Date: October 23, 2021 Subjective Patient was seen and examined for follow-up of shortness of breath Lying in bed with no acute distress Pt vomited again this morning Pt said tht he usually wait a few hours after turning off his tube feeding to take her medications Denies any chest, palpitation, dizziness, fever. Review of Systems Review of Systems: All systems reviewed & are unremarkable except as noted in Subjective Physical Exam Physical Exam: General- No acute distress Head- atraumatic Eyes- PERRL, EOMI, ENT- oropharynx clear Neck- supple, no JVD Lungs- + coarse breath sounds with wheezing and rhonchi Heart- +tachycardia, no murmur Abdomen- normal bowel sounds, soft, nontender, G-J tube in place Extremities- no calf tenderness Neuro- alert, oriented x 3; PERRL, EOMI; no facial palsy; no dysarthria Skin- warm & dry Results & Data Results & Data ([facility]) Vital Signs (Past 12 Hours) Vital Signs Temp Pulse Pulse Resp BP BP Pulse Ox 11/07/21 19:29 36.9 C 101 H 22 153/91 H 90 11/07/21 15:51 108 H 11/07/21 14:49 37.1 C 109 H 22 132/79 92 11/07/21 13:44 118 H 20 97 11/07/21 11:31 37.0 C 116 H 20 144/89 H 97
[2021-11-07] MEDS ORDERED: NOVASOURCE RENAL 2.0 CAL 1000ML BAG GJT SCH (21:00)
[2021-11-07] MEDS: AMITRIPTYLINE HCL 50 MG TAB PO SCH (21:19)
[2021-11-07] MEDS: SENNA 8.6 MG TAB PO SCH (21:21)
[2021-11-08] MEDS: IPRATROPIUM BROMIDE NEB SOLN 0.02% 2.5 ML VIAL INH SCH ×3 (00:34→13:41)
[2021-11-08] MEDS: LEVALBUTEROL HCL 1.25 MG/3 ML NEB INH SCH ×3 (00:34→13:42)
[2021-11-08] MEDS: SODIUM CHLOR 7% 4 ML NEB NEB SCH (07:10)
[2021-11-08] MEDS: INSULIN ASPART PER UNIT SC SCH ×2 (08:46→12:05)
[2021-11-08] MEDS: TACROLIMUS 1 MG CAP PO SCH (08:47)
[2021-11-08] MEDS: TACROLIMUS 0.5 MG CAP PO SCH (08:47)
[2021-11-08] MEDS: AMOXICILLIN/CLAVULANATE 500 MG TAB PO SCH (08:47)
[2021-11-08] MEDS: FUROSEMIDE 20 MG TAB PO SCH (08:47)
[2021-11-08] MEDS: METOPROLOL TARTRATE 50 MG TAB PO SCH (08:47)
[2021-11-08] MEDS: ACYCLOVIR 400 MG TAB PO SCH (08:47)
[2021-11-08] MEDS: SACCHAROMYCES BOULARDII 250 MG CAP PO SCH (08:47)
[2021-11-08] MEDS: HYDROCORTISONE 10 MG TAB PO SCH ×2 (08:48→12:38)
[2021-11-08] MEDS: INSULIN GLARGINE SOLOSTAR 100 UNITS/ML 3 ML PEN SC SCH (08:48)
[2021-11-08] MEDS: guaiFENesin 600 MG TABCR PO SCH (08:48)
[2021-11-08] MEDS: ADVANCED PROBIOTIC 1250 MG CAPSULE PO SCH (08:49)
[2021-11-08] MEDS: PREVYMIS PO SCH (09:21)
[2021-11-08] MEDS: CITALOPRAM 20 MG TAB PO SCH (12:38)
[2021-11-08] MEDS: PANTOprazole 40 MG TAB PO SCH (12:38)
--- NOTE | 2021-11-09 09:50 | Discharge Summary ---
Date of Service November 08, 2021 Admission HPI Per Admitting Provider History obtained from patient and records. Medical history significant for chronic respiratory failure secondary to COPD/primary pulmonary hypertension on home O2, history bilateral lung transplant on chronic immunosuppressive/antimicrobial/antiviral regimen, hypertension, PAF, DM2 insulin requiring, CRI (baseline creatinine 1.8 ), chronic anemia (baseline hemoglobin of 7), history poor p.o. intake status post GJ tube placement, chronic mastoiditis as per records, past tobacco abuse. Last confinement August 2021 for respiratory failure secondary to bilateral pneumonia. Patient transferred to [facility] where she was confined for 2 weeks. Patient seen at the ER last week for displaced GJ tube. Temporary gastric tube placed until follow-up at [facility] for IR placement of GJ tube following discussion with patient's [facility] Transplant team. Patient given additional instructions to schedule follow-up appointment with [facility] Transplant team. GJ tube successfully replaced outpatient at [facility] yesterday. Patient however was not able to see transplant team at [facility] due to a very long day. Worsening shortness of breath with junky cough symptoms the last few days. Occasional coughing with water and food intake. No chest pain. No fluid retention. Appetite not too good. No abdominal/flank pain. Patient also feels that she is needing help to care for self at home. Patient given Solu-Medrol and neb treatment at the ER for COPD exacerbation. Patient refused to transfer to [facility] for further evaluation by her transplant team as per ER provider. 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 Admission Exam Per Admitting Provider GENERAL: Comfortable, eating dinner, chronically ill, no respiratory distress SKIN: Pallor, warm HEENT: Bespectacled, pale palpebral conjunctivae, no ptosis, dry buccal mucosa, nasal cannula in place NECK : Supple, no tenderness CHEST : Decreased breath sounds, bilateral rhonchi, no tenderness HEART : Tachycardic, no obvious murmurs ABDOMEN: Some distention, GJ tube in place, nontender EXTREMITIES : Minimal LE swelling, no LE tenderness, no other conspicuous deformities noted NEUROLOGIC : Coherent, no facial asymmetry, no other gross focality Principal Diagnosis 35 minutes Discharge Exam General- No acute distress Head- atraumatic Eyes- PERRL, EOMI, ENT- oropharynx clear Neck- supple, no JVD Lungs- + coarse breath sounds with wheezing and rhonchi Heart- +tachycardia, no murmur Abdomen- normal bowel sounds, soft, nontender, G-J tube in place Extremities- no calf tenderness Neuro- alert, oriented x 3; PERRL, EOMI; no facial palsy; no dysarthria Skin- warm & dry Discharge Data Allergies Allergy/AdvReac Type Severity Reaction Status Date / Time glimepiride AdvReac Severe Fainting Verified 10/23/21 20:07 Consultations 10/23/21 21:20 ED Decision to Admit Stat 11/04/21 08:49 Consult Gastroenterology Routine 11/07/21 07:00 Consult Pulmonology Routine Ordered Studies XR chest 1V portable HISTORY: 61 years-old Female sob acute shortness of breath COMPARISON: 11/01/2021, chest CT 08/25/2021. TECHNIQUE: Portable AP view of the chest FINDINGS: Cardiac silhouette is enlarged. Pneumomediastinum stent with numerous surgical clips redemonstrated. Surgical suture material of the lateral left lung base. Unchanged pleural thickening of the lung apices. Trace pleural effusions. Persistent multifocal reticular nodular opacities. Bones appear grossly intact. IMPRESSION: 1. Cardiomegaly with trace pleural effusions. 2. Chronic reticular nodular opacities are compatible with an infectious or inflammatory pneumonitis such as atypical mycobacterium. ACT 112: Negative or not required by law. The above report was generated using voice recognition software. It may contain grammatical, syntax or spelling errors. Electronically signed by: Andrés Hood M.D. 11/06/2021 9:56 AM Dictated:11/06/21954 Transcribed: 11/06/21954 XR chest 1V portable CLINICAL HISTORY: follow up TECHNIQUE: Single frontal radiograph of the chest was obtained. Comparison: None available at the time of this dictation. FINDINGS: No lines and tubes are seen. Calcified aortic knob is seen. Prominent cardiac silhouette is stable. Interstitial opacities are seen. There is interval improvement of previously noted airspace opacities. No evidence of pleural effusion or pneumothorax. IMPRESSION: Stable cardiomegaly. Interstitial opacities compatible with scarring are again seen. There is interval improvement of previously noted airspace opacities. ACT 112: Negative or not required by law. Electronically signed by: Ganesh Sheldon M.D. 11/01/2021 12:16 PM Dictated:11/01/21 1213 Transcribed: 11/01/21 121 XR chest 1V portable CLINICAL HISTORY: Atypical chest pain. COMPARISON STUDY: Chest radiograph and chest CT August 25, 2021. FINDINGS: Postoperative findings from double lung transplant are noted. Cardiomegaly is unchanged. A stent within the right mainstem bronchus is noted. No pneumothorax or pleural effusion is identified. Patchy bilateral airspace opacities are noted, including right midlung opacity. There is minimal right basilar opacity. IMPRESSION: 1. Slight progression of patchy bilateral airspace opacities. These are nonspecific although favor an infectious process. Radiographic follow-up is recommended. 2. Stable cardiomegaly. ACT 112: Negative or not required by law. Electronically signed by: Albin Rojo M.D. 10/23/2021 6:30 PM Dictated:10/23/211826 Transcribed: 10/23/211826 Hospital Course (1) COPD exacerbation: Acute on chronic respiratory failure with hypoxia Lung transplant status, bilateral, [facility] 2019 Present on admission with worsening SOB CXR showed Slight progression of patchy bilateral airspace opacities. Covid 19 negative Blood cx no growth Sputum cultx - ordered but uncollected (patient unable to cough up any sputum) Continued IV zosyn , stopped and transitioned to PO Augmentin (11/01), repeat CXR improved Azithromycin on hold Continue Hydrocortisone Continue Aggressive pulmonary toilet with levalbuterol/ipratropium, flutter valve, incentive spirometry, hypertonic saline Bactrim on hold in setting of ROYER, resume when able Tacrolimus level 11.8 (10/26 at 7am) My colleague, Dr. Dean, spoke to Dr. Moran from the transplant team that recommended to hold the everolimus. Ok to continue the Tacrolimus and Prevymis. He is visual presentation manager until the weekend and can be reached (cell# [phone]). Previous hospital team Dr. Cormier discuseed the case with Dr. Moran on October 29, and updated him on tacrolimus level, and current creatinine, and patient's status. Recommends to continue as is for now, resume everolimus on discharge. They plan to contact the patient after her discharge from the hospital and follow-up with her. repeat CXR showed chronic reticular nodular opacities are compatible with an infectious or inflammatory pneumonitis such as atypical mycobacterium. Pulm consulted Case discussed with pulm that recommended to continue with hypertonic saline nebulized, flutter valve, chest vest therapy. Guaifenesin increased to 1200 mg twice daily No further work up as per pulm Follow up with Lung transplant team Tachycardia Continue Metoprolol 50mg BID HR improved Acute on chronic CKD stage III creatinine 2.3 on admission, Creatinine 1.7 Avoid nephrotoxic agents Continue monitor BMP Elevated trop Denies any chest pain High sensitivity trop 27.8, then 29.3 EKG showed no acute ischemic changes Hyperkalemia Potassium ~ 4 Continue monitor BMP Resolved Poor PO intake G-J tube is clogged GI was consulted and successfully unclogged the J port Vomiting Possible related to tube feeding/medication. Pt said that she does her tube feeding from 7pm to 7am and wait a few hours before to take her pills We spoke to pharmacy to turn off the tube feeding at 7am Continue Zofran prn Chronic Anemia in setting of chronic disease Anemia of acute blood loss Hgb dropped 6.6 S/P 1 unit PRBC on No sign of active bleeding Continue to hold heparin for now Hgb 8.3 Continue monitor H&H DVT ppx: SCDs, Heparin on hold. if H/H stable consider to restart it BID Full code [facility] transplant team Transplant provider Dr. Moran cell # [phone] Total Time Total Time Spent Total Time Spent (In Minutes): COPD exacerbation Acute on chronic respiratory failure with hypoxia Lung transplant status, bilateral, [facility] 2019 Tachycardia Acute on chronic CKD stage III Elevated troponin Hyperkalemia Poor PO intake Vomiting Anemia of acute blood loss Discharge Plan Discharge Items Patient Disposition: Home - Home Health Services Reason For Visit: COPD EXA, HCAP Discharge Diagnosis: COPD exacerbation Acute on chronic respiratory failure with hypoxia Lung transplant status, bilateral, [facility] 2019 Tachycardia Acute on chronic CKD stage III Elevated troponin Hyperkalemia Poor PO intake Vomiting Anemia of acute blood loss Activity: Resume your previous activity Non-emergency contact: Primary Care Provider, Specialist and Construction Representative Call non-emergency contact if: you have any medication questions Follow-up/Referrals: Jeferson Vinson MD [Primary Care Provider] - Diet: Heart Healthy Addtl Attending Provider Instructions: Follow up with your primary care provider with 1 week ( please call to schedule for the follow appointment ) Follow up with your lung transplant specialist ( please call to schedule for the follow appointment ) Continue physical and occupational therapy Continue oxygen supplement with 2 liter nasal canula Continue incentive spirometry and flutter valve Check BMP in 1 week to monitor your renal function Check CBC in 1 week to monitor your hemoglobin Fall precaution Seek medical urgent attention if your breathing worsening Metoprolol increased to 50mg twice a day Pending Studies at Discharge: No Stand-Alone Forms: [facility], Smoking Cessation Medications and DC Order Prescriptions: New metoprolol tartrate 50 mg Tablet 50 mg PO BID 30 Days Qty: 60 RF: 0 furosemide 20 mg Tablet 20 mg PO UD Qty: 30 RF: 0 sodium chloride 7 % Solution For Nebulization 4 ml NEB BIDR 30 Days Qty: 60 RF: 0 Continued pantoprazole [Protonix] 40 mg tablet,delayed release (DR/EC) 40 mg PO DAILY@1200 RF: 0 Domperidone 40 mg PO QID RF: 0 amitriptyline 50 mg tablet 50 mg PO HS RF: 0 tacrolimus 1 mg Capsule See Rx Instructions .ROUTE .COMPLEX RF: 0 citalopram 10 mg tablet 10 mg PO .DAILY AT NOON RF: 0 everolimus (immunosuppressive) 0.5 mg Tablet 2 mg PO AMPM RF: 0 azithromycin 250 mg Tablet 250 mg PO DAILY@1200 RF: 0 acyclovir 400 mg tablet 400 mg PO AMHS RF: 0 hydrocortisone 10 mg tablet 20 mg PO QAM RF: 0 sulfamethoxazole-trimethoprim [Bactrim] 400-80 mg tablet 1 tab PO 2XWK RF: 0 hydrocortisone 10 mg tablet 10 mg PO BID RF: 0 Prevymis 480 mg Tablet 480 mg PO QAM RF: 0 sennosides [senna] 8.6 mg Tablet 17.2 mg PO HS RF: 0 Changed guaifenesin [Mucinex] 600 mg Tablet Extended Release 12hr 1,200 mg PO Q12H Qty: 120 RF: 0 Discontinued metoprolol tartrate 25 mg tablet 25 mg PO BID RF: 0 Discharge Orders: Discharge Order (Routine); Ordered 11/08/21 Ordered By: Chaka Bar Admission Data Admit Date/Time: 10/23/21 22:27 Attending Provider: Chaka Bar Admit Provider: Maik Espino Primary Care Provider: Jeferson Vinson Other Providers: Maik Espino ; [facility] ; Mickey Cormier ; Estelle Swartz ; Matt Madera Other Interventions: Discharge Summary Assessment (RN) Last Done: 11/08/21 14:11
--- NOTE | 2021-11-10 09:52 | Coding Query ---
CODING QUERY To promote full compliance with coding requirements relating to patient care, provider participation is requested in all cases of hole digger operator uncertainty. Please assist us with the question(s) below: Coding Question(s): Bilateral transplant patient admitted with COPD/bronchiectasis . Per Pulmonary Consult - also acute/chronic bilateral lung rejection. The Discharge Summary mentions " repeat CXR - chronic nodular opacities consistent with inflammatory or infectious pneumonitis". Please document the inflammatory/infectous process that was treated , if known or suspected. Thanks for your help! Miguel Burnett [facility] Physician's Response(s): Possible related to bronchiectasis Principal Diagnosis: "that condition established after study, to be chiefly responsible for occasioning the admission of the patient to the hospital for care." Co-Existing Principal Diagnosis: "when two or more diagnoses equally meet the criteria for principal diagnosis as determined by the circumstances of admission, diagnostic work up, and/or therapy provided, and the Alphabetic Index, Tabular List, or another coding guideline does not provide sequencing direction, any one of the diagnoses may be sequenced first." "When the physician has documented what appears to be a current diagnosis in the body of the record, but has not included the diagnosis in the final diagnostic statement, the physician should be asked whether the diagnosis should be added." (Source Coding Clinic 2 QTR90. p3-4) GERRY
== END 2021-11-08 16:25 | disposition home health service (06) | DRG 205 ==
LOC: ED 17:39 → 2S 22:27 → SUATTDRO 22:27 → 2S 10-24 00:08 → 2W 10-28 11:32